=== PATIENT | male | born 1945 | race Caucasian/White ===

== ENCOUNTER → 2017-10-19 07:07 | Outpatient (CLI) | payer MEDICARE, BC, SELFPAY ==
[2017-10-19 10:34] LABS: AST(SGOT) 24 U/L (15-37); Alanine Aminotransfer ALT/SGPT 31 U/L (16-61); Albumin, Serum 3.8 g/dL (3.2-5.0); Alkaline Phosphatase 70 U/L (45-117); Bilirubin, Direct 0.32 mg/dL (0.00-0.30); Cholesterol 110 mg/dL (200); Globulin 3.2 g/dL (2.2-4.2); High Density Lipoprotein 42 mg/dL; Triglycerides 73 mg/dL; Very Low Density Lipoprotein 15 mg/dL (5-40)
== END ==
PROVIDERS: Family Provider Nurse Practitioner; PCP Nurse Practitioner; Visit Provider Internal Medicine Cardiovascular Disease
DX: E78.5 Hyperlipidemia, unspecified (principal); Z79.899 Other long term (current) drug therapy
CPT/HCPCS: 36415; 80061; 80076

== ENCOUNTER → 2017-11-10 10:40 | Outpatient (CLI) | payer MEDICARE, BC, SELFPAY ==
--- NOTE | 2017-11-10 10:42 | ECHOD_ITS ---
Reason For Study: CAD Procedure This was a 2D Doppler, Color Flow transthoracic echocardiogram. Exam performed in department. Left Ventricle Normal LV size. The estimated ejection fraction is 59 %. Stage 1 diastolic dysfunction. No regional wall motion abnormalities noted. Right Ventricle Normal RV size. Normal systolic function. Atria The left atrium is mildly enlarged. Normal right atrium. Mitral Valve Normal mitral valve. Trivial mitral valve insufficiency. Tricuspid Valve Normal tricuspid valve. Mild tricuspid valve insufficiency. Pulmonary artery systolic pressure is 27 mmHg. Aortic Valve Trisinus/trileaflet aortic valve. Mild diffuse aortic valve thickening. Trivial aortic valve insufficiency. Pulmonic Valve Normal pulmonic valve. Trivial pulmonic valve insufficiency identified. Great Vessels Normal aortic root. The pulmonary artery is normal size. Normal inferior vena cava. Pericardium/Pleural No pericardial effusion. MMode/2D Measurements & Calculations LVIDd: 5.1 cm IVSd: 1.1 cm Ao root diam: 3.2 cm LVIDs: 3.3 cm LVPWd: 0.92 cm LA dimension: 4.0 cm RVDd: 3.9 cm FS: 35.7 % LAV(MOD-bp): 67.4 ml LA A4 area: 20.9 cm2 RA A4 area: 15.0 cm2 LAV(MOD-bp) Indexed: 38.2 ml/m2 LAV(MOD-sp2): 68.3 ml LAV(MOD-sp4): 62.5 ml Doppler Measurements & Calculations MV E max lawrence: 51.0 cm/sec Lat Peak E' Lawrence: 11.9 cm/sec Med Peak E' Lawrence: 7.0 cm/sec MV A max lawrence: 62.7 cm/sec E/E' lat: 4.3 E/E' med: 7.3 MV E/A: 0.81 Ao V2 max: 128.8 cm/sec LV V1 max: 95.5 cm/sec PA V2 max: 104.2 cm/sec Ao max P.6 mmHg LV V1 max P.6 mmHg TR max lawrence: 242.3 cm/sec TR max P.6 mmHg Interpretation Summary Stage 1 diastolic dysfunction. The estimated ejection fraction is 59 %. Normal LV size. Mild tricuspid valve insufficiency. Mild diffuse aortic valve thickening. Ordering Physician: Rasta Gan/Kael Li Referring Physician: Cathy Kwok Performed By: Prisca Keane RDCS
== END ==
PROVIDERS: Family Provider Nurse Practitioner; PCP Nurse Practitioner; Visit Provider Nurse Practitioner Family
DX: I25.810 Atherosclerosis of coronary artery bypass graft(s) without angina pectoris (principal); Z95.1 Presence of aortocoronary bypass graft; I10 Essential (primary) hypertension; E78.5 Hyperlipidemia, unspecified; R60.9 Edema, unspecified
CPT/HCPCS: 93306

== ENCOUNTER → 2018-02-20 11:09 | Outpatient (CLI) | payer MEDICARE, BC, SELFPAY ==
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
== END ==
PROVIDERS: Family Provider Nurse Practitioner; PCP Nurse Practitioner; Referring Provider Nurse Practitioner; Visit Provider Nurse Practitioner
DX: M1A.00X1 Idiopathic chronic gout, unspecified site, with tophus (tophi) (principal)
CPT/HCPCS: 73130

== ENCOUNTER → 2018-06-09 07:41 | Outpatient (CLI) | payer MEDICARE, BC, SELFPAY ==
[2018-06-02 14:33] VITALS: BMI 25.4
[2018-06-09 11:09] LABS: AST(SGOT) 13 U/L (15-37); Alanine Aminotransfer ALT/SGPT 23 U/L (16-61); Albumin, Serum 3.4 g/dL (3.2-5.0); Alkaline Phosphatase 78 U/L (45-117); Bilirubin, Direct 0.19 mg/dL (0.00-0.30); Cholesterol 129 mg/dL (200); Globulin 3.2 g/dL (2.2-4.2); High Density Lipoprotein 41 mg/dL; Protein, Total 6.6 g/dL (6.4-8.2); Triglycerides 119 mg/dL; Very Low Density Lipoprotein 24 mg/dL (5-40)
== END ==
PROVIDERS: Family Provider Nurse Practitioner; PCP Nurse Practitioner; Referring Provider Internal Medicine Cardiovascular Disease; Visit Provider Internal Medicine Cardiovascular Disease
DX: E78.00 Pure hypercholesterolemia, unspecified (principal)
CPT/HCPCS: 36415; 80061; 80076

== ENCOUNTER → 2018-11-16 | Outpatient (CLI) | payer MEDICARE, BC, SELFPAY ==
[2018-06-02 14:33] VITALS: BMI 25.4
--- NOTE | 2018-11-16 12:57 | ART_ITS ---
Left Segmental Pressures Left brachial= 146mmHg. Left posterior tibial artery = 168mmHg. Left dorsalis pedis artery = 176mmHg. Left digit = 141 mmHg. The left dorsalis pedis waveforms are triphasic. The left posterior tibial artery waveforms are triphasic. Right Segmental Pressures Right brachial= 153mmHg. Right posterior tibial artery = 196mmHg. Right dorsalis pedis artery = 189mmHg. Right digit = 129 mmHg. The right dorsalis pedis waveforms are triphasic. The right posterior tibial artery waveforms are triphasic. Indices The right ankle brachial index by the dorsalis pedis is 1.24. The right ankle brachial index by the posterior tibial artery is 1.28. The right digital-brachial index is .84. The left ankle brachial index by the dorsalis pedis is 1.15. The left ankle brachial index by the posterior tibial artery is 1.1. The left digital-brachial index is .92. Interpretation Summary Triphasic Doppler waveforms are noted at ankle level bilaterally. Pulse-volume recording waveform amplitudes are satisfactory at all levels bilaterally, including low-thigh, calf, ankle, and digital levels. Resting ankle-brachial indices are normal bilaterally. Digital-brachial indices are bilaterally normal. There is no evidence of significant arterial occlusive disease in the lower extremities bilaterally. Ordering Physician: Jojo Tavera Performed By: NICOLE SEWELL RVT
== END | disposition home or self-care (01) ==
LOC: CVS 12:56
PROVIDERS: Family Provider Nurse Practitioner; PCP Nurse Practitioner; Referring Provider Podiatrist Foot & Ankle Surgery; Visit Provider Podiatrist Foot & Ankle Surgery
DX: R09.89 Other specified symptoms and signs involving the circulatory and respiratory systems (principal); I79.8 Other disorders of arteries, arterioles and capillaries in diseases classified elsewhere
CPT/HCPCS: 93923

== ENCOUNTER → 2018-12-13 | Outpatient (CLI) | payer MEDICARE, OTHER, SELFPAY ==
[2018-06-02 14:33] VITALS: BMI 25.4
[2018-12-13 11:02] LABS: AST(SGOT) 19 U/L (15-37); Alanine Aminotransfer ALT/SGPT 27 U/L (16-61); Albumin, Serum 3.4 g/dL (3.2-5.0); Alkaline Phosphatase 59 U/L (45-117); Bilirubin, Direct 0.16 mg/dL (0.00-0.30); Cholesterol 104 mg/dL (200); Globulin 2.8 g/dL (2.2-4.2); High Density Lipoprotein 45 mg/dL; Protein, Total 6.2 g/dL (6.4-8.2); Triglycerides 71 mg/dL; Very Low Density Lipoprotein 14 mg/dL (5-40)
== END | disposition home or self-care (01) ==
LOC: MTLAB 07:04
PROVIDERS: Family Provider Nurse Practitioner; PCP Nurse Practitioner; Referring Provider Internal Medicine Cardiovascular Disease; Visit Provider Internal Medicine Cardiovascular Disease
DX: E78.5 Hyperlipidemia, unspecified (principal)
CPT/HCPCS: 36415; 80061; 80076

== ENCOUNTER → 2019-01-24 | Outpatient (CLI) | payer MEDICARE, OTHER, SELFPAY ==
[2018-12-14 13:53] VITALS: BMI 24.8
--- NOTE | 2019-01-24 09:46 | RAD_ITS ---
HISTORY:HIP PAIN, NO TRAUMA HIP PAIN, NO TRAUMA COMPARISON: None FINDINGS: # of images incl. paperwork: 3 XR Hip Unilateral with Pelvis when performed; 2-3 Views: Right BONE AND JOINTS: No acute fracture or subluxation. There is increased density is seen bilaterally but greater on the right in the region of the anterior inferior iliac spine. This may be secondary to prior trauma SOFT TISSUES: Unremarkable. No radiopaque foreign body. RAD/HIP, UNI W/ Pelvis 2-3 Views IMPRESSION: No acute pathology If symptoms persist consider mri for further evaluation if clinically indicated. at 2217 Reported and signed by: Allie Marrufo DO Electronically Signed: Allie Marrufo DO at 22:16 EDT Tel , Service support ,
--- NOTE | 2019-01-24 09:46 | RAD_ITS ---
HISTORY:FOOT BURNING AND PAIN, NO TRAUMA FOOT BURNING AND PAIN, NO TRAUMA COMPARISON: None FINDINGS: # of images incl. paperwork: 3 XR Foot Min 3 Views: Right BONE AND JOINTS: No acute fracture or subluxation. Osteopenia. Decrease joint space at the first metatarsophalangeal joint. There is minimal hallux valgus as well as varus deformity of the second toe SOFT TISSUES: Atherosclerotic vascular disease No radiopaque foreign body. RAD/Foot min 3 Views IMPRESSION: No acute pathology Degenerative changes as discussed at 2219 Reported and signed by: Allie Marrufo DO Electronically Signed: Allie Marrufo DO at 22:18 EDT Tel , Service support ,
== END | disposition home or self-care (01) ==
LOC: HPRAD 09:42
PROVIDERS: Family Provider Nurse Practitioner; PCP Nurse Practitioner; Referring Provider Nurse Practitioner; Visit Provider Nurse Practitioner
DX: M25.551 Pain in right hip (principal); M79.671 Pain in right foot
CPT/HCPCS: 73502; 73630

== ENCOUNTER → 2019-01-31 06:03 | Outpatient (CLI) | payer MEDICARE, OTHER, SELFPAY ==
[2018-12-14 13:53] VITALS: BMI 24.8
--- NOTE | 2019-01-31 09:52 | NEURO ---
NCS and/or EMG Patient Report Ordering Doctor: Cathy Kwok DATE OF SERVICE: 01/31/19 Bassem Morrison is a 73-year-old male presents with complaints of numbness tingling and burning in both feet for the past several months. He presents today for electrodiagnostic testing of the lower limbs. Electrodiagnostic findings: Peroneal motor nerve demonstrates normal distal latency bilaterally with reduced amplitude on the right side and borderline reduced amplitude on the left side. Right tibial motor amplitude is decreased. Left tibial motor response within normal limits. Prolonged right superficial peroneal latency. Borderline prolonged right medial plantar response. H reflex prolonged bilaterally. Prolonged right tibial F waves. Prolonged peroneal F wave bilaterally. On needle EMG, all muscles tested in the lower limb showed no evidence of denervation with normal motor unit action potentials. Electrodiagnostic impression: This is an abnormal study. 1. 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 2. There is no electrodiagnostic evidence for lumbosacral radiculopathy. 3. There is no electrodiagnostic evidence for myopathy. If there are any further questions, please do not hesitate to contact me.
== END ==
PROVIDERS: Family Provider Nurse Practitioner; PCP Nurse Practitioner; Referring Provider Nurse Practitioner; Visit Provider Nurse Practitioner
DX: R20.0 Anesthesia of skin (principal); R20.2 Paresthesia of skin; G62.9 Polyneuropathy, unspecified
CPT/HCPCS: 95886; 95912

== ENCOUNTER → 2020-01-25 07:56 | Outpatient (CLI) | payer MEDICARE, OTHER, SELFPAY ==
[2019-08-24 13:40] VITALS: BMI 22.9
[2020-01-25 09:39] LABS: AST(SGOT) 19 U/L (15-37); Alanine Aminotransfer ALT/SGPT 25 U/L (16-61); Albumin, Serum 3.7 g/dL (3.2-5.0); Alkaline Phosphatase 65 U/L (45-117); Bilirubin, Direct 0.32 mg/dL (0.00-0.30); Cholesterol 109 mg/dL (200); Globulin 2.9 g/dL (2.2-4.2); High Density Lipoprotein 32 mg/dL; Protein, Total 6.6 g/dL (6.4-8.2); Triglycerides 218 mg/dL; Very Low Density Lipoprotein 44 mg/dL (5-40)
== END ==
PROVIDERS: PCP Student in an Organized Health Care Education/Training Program; Referring Provider Internal Medicine Cardiovascular Disease; Visit Provider Internal Medicine Cardiovascular Disease
DX: E78.00 Pure hypercholesterolemia, unspecified (principal); R42 Dizziness and giddiness; I25.10 Atherosclerotic heart disease of native coronary artery without angina pectoris; Z95.1 Presence of aortocoronary bypass graft; I10 Essential (primary) hypertension; E78.5 Hyperlipidemia, unspecified
CPT/HCPCS: 36415; 80061; 80076

== ENCOUNTER → 2020-11-12 12:25 | Outpatient (CLI) | payer MEDICARE, OTHER, SELFPAY ==
[2020-03-25 14:59] VITALS: BMI 24.5
[2020-11-12 14:22] LABS: AST(SGOT) 19 U/L (15-37); Alanine Aminotransfer ALT/SGPT 20 U/L (16-61); Albumin, Serum 3.8 g/dL (3.2-5.0); Alkaline Phosphatase 87 U/L (45-117); Bilirubin, Direct 0.35 mg/dL (0.00-0.30); Cholesterol 144 mg/dL (200); High Density Lipoprotein 38 mg/dL; Protein, Total 6.8 g/dL (6.4-8.2); Triglycerides 107 mg/dL; Very Low Density Lipoprotein 21 mg/dL (5-40)
== END ==
PROVIDERS: PCP Student in an Organized Health Care Education/Training Program; Referring Provider Internal Medicine Cardiovascular Disease; Visit Provider Internal Medicine Cardiovascular Disease
DX: E78.5 Hyperlipidemia, unspecified (principal)
CPT/HCPCS: 80061; 80076

== ENCOUNTER → 2020-12-01 06:07 | Outpatient (CLI) | payer MEDICARE, OTHER, SELFPAY ==
[2020-11-20 08:47] VITALS: BMI 24.7
--- NOTE | 2020-12-01 16:07 | STRESSREP ---
Stress Test Report Exercise myocardial perfusion stress test. 75-year-old man with a history of coronary artery bypass surgery. Stress protocol: Resting EKG demonstrates normal sinus rhythm with a rate of 65 bpm normal intervals are noted. The patient exercised according to the regular Jason protocol for total duration of 8 minutes. Patient completed 2 minutes into stage III of the Jason protocol. The maximum heart rate was 133 bpm which was 91% of maximum predicted heart rate the maximum workload was 10.1 metabolic equivalent. At rest there were no ST or T wave changes noted to suggest ischemia at peak exercise upsloping ST changes were noted with did not meet the criteria for ischemia. No clinical angina was noted the test was terminated due to the target heart rate being achieved. The resting blood pressure was 132/80 with a peak blood pressure 190/68 mmHg. Myocardial perfusion protocol. 11.1 mCi of technetium 99m sestamibi was injected at rest. The patient exercised according to regular Jason protocol, for total duration of 8 minutes and at peak exercise 32.1 mCi of technetium 99m sestamibi was injected stress images were obtained stress and rest images were reconstructed and compared in the short axis vertical long horizontal long axis. Gated images were also obtained Perfusion SPECT analysis: Review of the stress images demonstrate normal uptake of tracer noted in all areas of the myocardium. The resting images smooth demonstrate normal uptake of tracer noted in all areas of the myocardium. No areas of reversibility are noted suggest ischemia and no previous infarct is noted. Gated SPECT analysis: The gated ejection fraction is 61%. Conclusion: Normal exercise myocardial perfusion stress test at a high workload. Preserved ejection fraction.
== END ==
PROVIDERS: PCP Student in an Organized Health Care Education/Training Program; Referring Provider Internal Medicine Cardiovascular Disease; Visit Provider Internal Medicine Cardiovascular Disease
DX: Z95.1 Presence of aortocoronary bypass graft (principal)
CPT/HCPCS: 78452; 93017; A9500; A4216

== ENCOUNTER → 2021-11-28 | Outpatient (CLI) | payer MEDICARE, OTHER, SELFPAY ==
[2021-11-28 08:21] LABS: AST(SGOT) 14 U/L (15-37); Alanine Aminotransfer ALT/SGPT 21 U/L (16-61); Albumin, Serum 3.4 g/dL (3.2-5.0); Alkaline Phosphatase 75 U/L (45-117); Bilirubin, Direct 0.23 mg/dL (0.00-0.30); Cholesterol 92 mg/dL (200); High Density Lipoprotein 33 mg/dL; Protein, Total 6.4 g/dL (6.4-8.2); Triglycerides 82 mg/dL; Very Low Density Lipoprotein 16 mg/dL (5-40)
== END | disposition home or self-care (01) ==
LOC: LAB 07:01
PROVIDERS: PCP Student in an Organized Health Care Education/Training Program; Referring Provider Internal Medicine Cardiovascular Disease; Visit Provider Internal Medicine Cardiovascular Disease
DX: E78.00 Pure hypercholesterolemia, unspecified (principal)
CPT/HCPCS: 36415; 80061; 80076

== ENCOUNTER 2022-12-17 14:08 | Emergency (ER) | payer MEDICARE, OTHER, SELFPAY ==
[2022-12-17 14:11] VITALS: BP 78/57; PULSE 67; RESP 14; TEMP 36.6; O2SAT 96; BMI 25.1
[2022-12-17 14:15] VITALS: BP 98/64; PULSE 61; RESP 12; TEMP 35.3; O2SAT 93
--- NOTE | 2022-12-17 14:16 | ED.RN ---
PT BECAME PALE AND DIAPHORETIC WHILE TRIAGING.
[2022-12-17] MEDS: DiphenhydrAMINE 50 MG/ML Syringe IV (14:35)
[2022-12-17] MEDS: 0.9% Normal Saline 1,000 ML 1000 ML IV (14:35)
--- NOTE | 2022-12-17 14:40 | CT_ITS ---
STUDY: CTA OF THE ABDOMINAL AORTA AND BILATERAL LOWER EXTREMITIES REASON FOR EXAM: Male, 77 years old. Expanding hematoma distal thigh/ trauma. RADIATION DOSAGE (If Supplied By Facility): CTDIvol = ( 9.26 ) mGy, DLP = ( 1219.90 ) mGycm TECHNIQUE: Axial CT angiography multi-detector data acquisition was obtained from the iliac crests to the ankle following intravenous administration of IV 100mL Isovue-370. Axial images and MIP images were reconstructed from the axial data set. Post-processing of the angiographic images was performed, with multiplanar reformation and 3D reconstruction. Individualized dose optimization techniques were used for this CT. TECHNICAL QUALITY: Good COMPARISON: None. Descriptors of Narrowing: None (0%) Mild (< 50%) Moderate (50-70%) Severe (70-90%) Subtotal/Total Occlusion (90-100%) Non-Evaluable (technically non-diagnostic FINDINGS: There is a 10.9 cm x 4.6 cm x 12 cm complex hematoma in the medial aspect of the mid and distal left thigh. There is overlying skin subcutaneous edema and skin thickening. There is evidence of active bleeding along its most distal portion. The arterial supply to the area of active bleeding cannot be identified although this most likely arises from a branch of the distal portion of the left profundus femoris artery. Abdominal aorta: Atherosclerotic plaque formation of the abdominal aorta. Celiac and superior mesenteric arteries: No demonstrated narrowing. Right common iliac artery: Calcific plaques. Right external iliac artery: No demonstrated narrowing. Right internal iliac artery: No demonstrated narrowing. Left common iliac artery: Calcific plaques. Left external iliac artery: No demonstrated narrowing. Left internal iliac artery: No demonstrated narrowing. LEFT LOWER EXTREMITY Left common femoral artery: No demonstrated narrowing. Left profundus femoris: No demonstrated narrowing. Left superficial femoral: No demonstrated narrowing. Left popliteal artery: No demonstrated narrowing. Left tibioperoneal trunk: No demonstrated narrowing. Left anterior tibial artery: No demonstrated narrowing. Left posterior tibial artery: No demonstrated narrowing. Left peroneal artery: No demonstrated narrowing. CT/CTA LWR EXTR W/O & W/DYE IMPRESSION: Large heterogeneous hematoma in the medial aspect of the mid and distal left thigh with focal area of active bleeding along its distal portion as described. Overlying subcutaneous edema and skin thickening. Electronically Signed: Dav Parikh MD at 15:03 EDT ,
[2022-12-17 14:49] LABS: International Normalized Ratio 1.1; Prothrombin Time (Protime)PT. 13.7 SECONDS (11.7-14.9)
[2022-12-17 14:53] VITALS: BP 140/61; PULSE 55; RESP 18; O2SAT 100
[2022-12-17 14:55] LABS: ALB/GLOB Ratio 1.2 RATIO (0.9-2.4); AST(SGOT) 16 U/L (15-37); Alanine Aminotransfer ALT/SGPT 24 U/L (16-61); Albumin, Serum 3.4 g/dL (3.2-5.0); Alkaline Phosphatase 63 U/L (45-117); Anion Gap 7 (5-15); BUN 22 mg/dL (7-18); BUN/Creat Ratio 19.1 RATIO (10-20); Calcium,Total 8.8 mg/dL (8.5-10.1); Chloride 107 mmol/L (98-107); Creatinine, Serum 1.15 mg/dL (0.70-1.30); EST Glomerular Filtration Rate 66 mL/min (>60); Est Glom Filt Rate - Afr Amer 79 mL/min (>60); Estimated Creatinine Clearance 55.54 ml/min; Globulin 2.8 g/dL (2.2-4.2); Glucose 153 mg/dL (74-106); Potassium 4.3 mmol/L (3.5-5.1); Protein, Total 6.2 g/dL (6.4-8.2); Sodium Level 140 mmol/L (136-145)
--- NOTE | 2022-12-17 15:08 | ED.VIS.LOWEX ---
HPI History of Present Illness Chief Complaint: Lower Extremity Injury Informant: patient and spouse/S.O. Narrative Narrative: Patient is a 77-year-old male with history of coronary artery disease status post bypass, hypertension hyperlipidemia presenting with lightheadedness and injury to his left thigh. Patient was out mowing the lawn. He tried to step over a small fence and lost his balance. He fell. He got himself back up and continued to work on the lawn however he then noticed that he started to have significant swelling of the left thigh/ knee area. Patient notes his blood pressures usually elevated. Denies any other injuries. Does have chronic neuropathy but denies any abnormal numbness or tingling of his legs. Takes a daily aspirin is not on any anticoagulation. No other complaints or concerns at this time. [facility] Medical History Atherosclerosis of coronary artery of [place] heart without angina pectoris Essential (primary) hypertension Gout HLD (hyperlipidemia) Home Medications allopurinol 300 mg tablet 300 mg PO DAILY 03/25/14 [History Last Taken Unknown] nitroglycerin 0.4 mg sublingual tablet (Nitrostat) 0.4 mg sublingual Q5M 10/10/17 [History Last Taken Unknown] aspirin 81 mg chewable tablet 81 mg PO DAILY@0800 06/02/18 [History Last Taken Unknown] acetaminophen 500 mg tablet 1,000 mg PO BID 12/01/21 [History Last Taken Unknown] atenolol 50 mg tablet 50 mg PO QDAY #90 tabs 12/01/21 [Rx Last Taken Unknown] atorvastatin 10 mg tablet 10 mg PO QDAY #90 tabs 12/01/21 [Rx Last Taken Unknown] losartan 100 mg tablet 100 mg PO DAILY #90 tabs 10/25/22 [Rx Last Taken Unknown] Allergy/AdvReac Type Severity Reaction Status Date / Time iodine Allergy Other Verified 12/17/22 14:10 simvastatin [From Zocor] AdvReac Severe Myalgias Verified 12/17/22 14:10 hydrochlorothiazide AdvReac Intermediate Other Verified 12/17/22 14:10 Family History Father CAD (coronary artery disease) Surgical History H/O coronary artery bypass surgery (05/1994) History of herniorrhaphy History of tonsillectomy Hx of cholecystectomy Social History Smoking Status: Former smoker Smokeless tobacco user: chewing tobacco how long ago did patient quit smoking: After [place] alcohol intake: current alcohol intake frequency: a few times a month Alcohol type: beer substance use type: does not use caffeine: Yes Type: coffee Number of servings: 3 ROS ROS ED Constitutional Constitutional ED: Reports sweats Eyes Eyes: Denies change in vision Cardiovascular Cardiovascular: Denies chest pain Respiratory/Chest Respiratory/Chest: Denies cough or dyspnea Gastrointestinal Gastrointestinal: Denies nausea or vomiting Musculoskeletal Musculoskeletal: Reports other Details: left knee pain and swelling Integumentary Denies rash Neurologic Neurologic: Reports paresthesias; Denies weakness Psychiatric Psychiatric: Denies anxiety Hematologic/Lymphatic Hematologic/Lymphatic: Denies easy bleeding or easy bruising EXAM Physical Exam Const Vital Signs: 12/17/22 14:11 12/17/22 14:15 12/17/22 14:53 Temperature 98 F 95.5 F L Temperature Source Temporal Temporal Pulse Rate 67 61 55 L Respiratory Rate 14 12 18 Blood Pressure 78/57 L 98/64 140/61 H Blood Pressure Mean 64 75 87 Pulse Ox 96 93 100 Oxygen Delivery Method Room Air Room Air Room Air Positive well nourished and well developed Constitutional Narrative: Diaphoretic, pale, no acute distress General Appearance ED: well developed HEENT Reports moist mucous membranes Neck supple Chest Wall inspection of chest normal and palpation of chest normal Resp normal respiratory effort and clear to auscultation bilaterally Cardio regular rate, regular rhythm and no murmurs Cardio Narrative: 2+ DP pulses GI non-tender, non-distended and no masses Extremity Extremity Narrative: Decreased range of motion of the left knee secondary to swelling. Large area of soft tissue swelling of the medial distal femur into the knee with overlying ecchymosis. No pulsatile mass but this is consistent with an expanding hematoma. The area is quite firm to palpation. The compartments themselves are soft at this time. Neuro oriented x3 Sensorium / Orientation: alert Skin Skin Narrative: Ecchymosis to the left distal femur/knee area MDM MDM MDM Narrative Medical decision making narrative: Patient evaluated for swelling, hypotension and mild discomfort to his left thigh. There is a low mechanism trauma associated with this. Physical exam is highly concerning for expanding hematoma. Patient is fluid resuscitated with IV fluids and has good improvement. He is mildly bradycardic in the ER but I suspect this is from his atenolol. He has clinical improvement as well with IV fluids. CTA of the lower extremity is consistent with a hematoma with active arterial bleeding of the distal profundus fomoris vessel. As we do not currently have IR or vascular coverage will transfer to a larger facility. Discussed with the [facility] transfer line and patient is excepted as a trauma patient. Case discussed with Dr. Kingsley. Patient is agreeable this plan of care. On repeat evaluation he remains stable and I do not think requires critical care transport/[facility] at this time. Discussed with transfer that if he were to become unstable they should place a tourniquet on his mid thigh proximal to where the hematoma is. They are agreeable with this. Tight pressure dressing with Victor Manuel wrap is applied to the leg while in the emergency room. Lab Data Labs: Laboratory Results - last 24 hr 12/17/22 14:20 PT 13.7 INR 1.1 APTT 28.0 Sodium 140 Potassium 4.3 Chloride 107 Carbon Dioxide 26.0 Anion Gap 7 BUN 22 H Creatinine 1.15 Estim Creat Clear Calc 55.54 Est GFR (MDRD) Af Amer 79 Est GFR (MDRD) Non-Af 66 BUN/Creatinine Ratio 19.1 Glucose 153 H Calcium 8.8 Total Bilirubin 0.70 AST 16 ALT 24 Alkaline Phosphatase 63 Total Protein 6.2 L Albumin 3.4 Globulin 2.8 Albumin/Globulin Ratio 1.2 Radiography Diagnostic Testing: Clinical Impression(s) from Imaging Studies Lower Extremity CTA 12/17/22 14:40 IMPRESSION: Large heterogeneous hematoma in the medial aspect of the mid and distal left thigh with focal area of active bleeding along its distal portion as described. Overlying subcutaneous edema and skin thickening. Electronically Signed: Dav Parikh MD at 15:03 EDT , Management Discussion w/another healthcare provider: [employer] Consultant Critical Care Time Critical Care Time: Yes Critical care time (excluding procedures): 30-74 minutes (40), Discussing w/Patient &/or Family/Workers Compensation Administrator and Arranging Admission or Transfer Discharge Plan Triage Chief Complaint: Lower Extremity Injury ED Provider: Kathryn Gloria Dx/Rx/DC Orders Clinical Impression: Traumatic hematoma of left thigh, Arterial hemorrhage Prescriptions: No Action nitroglycerin [Nitrostat] 0.4 mg tablet, sublingual 0.4 mg SUBLINGUAL Q5M Patient Comments: X 3 acetaminophen 500 mg tablet 1,000 mg PO BID atenolol 50 mg tablet 50 mg PO QDAY Qty: 90 3RF atorvastatin 10 mg tablet 10 mg PO QDAY Qty: 90 3RF allopurinol 300 MG tablet 300 mg PO DAILY aspirin 81 mg tablet,chewable 81 mg PO DAILY@0800 losartan 100 mg tablet 100 mg PO DAILY Qty: 90 3RF Primary Care Provider: Lonnie Chaney Referrals: Lonnie Chaney DO [Primary Care Provider] - Disposition Disposition: Acute Care Hospital Discharge Location: [facility]
[2022-12-17 15:25] LABS: Absolute Lymphocyte Count 3.27 X10^3/uL (0.83-4.51); Absolute Neutrophil Count 7.5 X10^3/uL (2.0-7.7); Basophil# 0.09 X10^3/uL; Basophil% 0.7 % (0-1); Eosinophil# 0.33 X10^3/uL; Eosinophils% 2.6 % (0-5); Hematocrit 38.8 % (40-54); Hemoglobin 12.6 g/dL (13.0-16.5); Lymphocyte # 3.27 X10^3/ul (0.83-4.51); Mean Corp Hgb Conc 32.5 g/dL (32-36); Mean Corpuscular Hgb 30.8 pg (27.0-32.0); Mean Corpuscular Volume 94.9 fL (80-94); Mean Platelet Vol. 9.6 fl (6.2-12.0); Monocyte# 1.35 X10^3/uL; Monocyte% 10.7 % (0-10); NRBC Flagged by Analyzer 0 % (0-5); Neutrophil # 7.47 X10^3/uL (2.7-7.7); Neutrophil % 59.4 % (47-70); Platelet Count 271 K/mm3 (150-450); RBC Distribution Width CV 12.2 % (11.6-14.6); RBC Distribution Width SD 41.7 fl (35.1-43.9); Red Blood Count 4.09 M/mm3 (4.6-6.2); White Blood Count 12.6 K/mm3 (4.4-11.0)
[2022-12-17 15:47] VITALS: BP 162/68; PULSE 57
--- NOTE | 2022-12-17 15:59 | ED.RN ---
Report called to Carlos alvarez [facility]
[2022-12-17 18:35] LABS: Reflex Lactate? Y
== END 2022-12-17 16:06 | disposition short-term general hospital (02) ==
PROVIDERS: Emergency Provider Emergency Medicine; PCP Student in an Organized Health Care Education/Training Program; Visit Provider Emergency Medicine
DX: S70.12XA Contusion of left thigh, initial encounter (principal); I25.10 Atherosclerotic heart disease of native coronary artery without angina pectoris; E78.5 Hyperlipidemia, unspecified; I10 Essential (primary) hypertension; Z87.891 Personal history of nicotine dependence; Z79.82 Long term (current) use of aspirin; M10.9 Gout, unspecified; Z79.899 Other long term (current) drug therapy; Z90.49 Acquired absence of other specified parts of digestive tract; W17.89XA Other fall from one level to another, initial encounter; R58 Hemorrhage, not elsewhere classified
CPT/HCPCS: 73706; 80053; 83605; 85025; 85610; 85730; 86850; 86900; 86901; 96361; 96374; 96375; 99282; J7030; Q9967; A4216

== ENCOUNTER 2022-12-20 00:16 | Emergency (ER) | payer MEDICARE, OTHER, SELFPAY ==
[2022-12-20 00:17] VITALS: BP 164/66; PULSE 89; RESP 18; TEMP 36.7; O2SAT 99; BMI 26.2
--- NOTE | 2022-12-20 00:57 | EKG12_ITS ---
Test Reason : DYSRHYTHMIA Blood Pressure : / mmHG Vent. Rate : 085 BPM Atrial Rate : 085 BPM P-R Int : 156 ms QRS Dur : 086 ms QT Int : 366 ms P-R-T Axes : 089 036 031 degrees QTc Int : 435 ms Normal sinus rhythm Normal ECG Confirmed by JEFF GO, SARA ([id number]), editorial intern ALYSSA GARCIA ([id number]) on 12/23/2022 8:44:55 AM Referred By: VIKTOR Confirmed By:YOLI AGUILAR MD
[2022-12-20 01:13] LABS: Absolute Lymphocyte Count 2.75 X10^3/uL (0.83-4.51); Absolute Neutrophil Count 8.7 X10^3/uL (2.0-7.7); Basophil# 0.08 X10^3/uL; Basophil% 0.6 % (0-1); Eosinophils% 2.2 % (0-5); Hematocrit 21.1 % (40-54); Hemoglobin 6.8 g/dL (13.0-16.5); Lymphocyte # 2.75 X10^3/ul (0.83-4.51); Lymphocyte % 20.6 % (19-41); Mean Corp Hgb Conc 32.2 g/dL (32-36); Mean Corpuscular Hgb 31.5 pg (27.0-32.0); Mean Corpuscular Volume 97.7 fL (80-94); Mean Platelet Vol. 9.7 fl (6.2-12.0); Monocyte# 1.24 X10^3/uL; Monocyte% 9.3 % (0-10); NRBC Flagged by Analyzer 0.3 % (0-5); Neutrophil # 8.73 X10^3/uL (2.7-7.7); Neutrophil % 65.5 % (47-70); Platelet Count 191 K/mm3 (150-450); RBC Distribution Width CV 12.8 % (11.6-14.6); RBC Distribution Width SD 44.4 fl (35.1-43.9); Red Blood Count 2.16 M/mm3 (4.6-6.2); White Blood Count 13.3 K/mm3 (4.4-11.0)
[2022-12-20 01:17] VITALS: BP 139/53; PULSE 83; RESP 22; O2SAT 98
[2022-12-20 01:49] LABS: Anion Gap 5 (5-15); BUN 23 mg/dL (7-18); BUN/Creat Ratio 18.5 RATIO (10-20); Calcium,Total 8.2 mg/dL (8.5-10.1); Chloride 108 mmol/L (98-107); Creatinine, Serum 1.24 mg/dL (0.70-1.30); EST Glomerular Filtration Rate 60 mL/min (>60); Est Glom Filt Rate - Afr Amer 73 mL/min (>60); Estimated Creatinine Clearance 51.51 ml/min; Glucose 127 mg/dL (74-106); Magnesium 2.1 mg/dL (1.6-2.6); Potassium 3.9 mmol/L (3.5-5.1); Sodium Level 140 mmol/L (136-145); Thyroid Stim Hormone (TSH) 1.95 uIU/mL (0.358-3.74); Troponin-I HS 9 pg/mL (3.0-78.0)
--- NOTE | 2022-12-20 02:27 | EDS_ITS ---
HPI History of Present Illness Chief Complaint: Palpitations Informant: patient Narrative Narrative: Patient is a 77-year-old male with past medical history of hypertension hyperlipidemia and coronary artery disease. He was seen in the hospital on December 09 secondary to traumatic hematoma of the left thigh with arterial hemorrhage. She was transferred to [facility]. He states that he was released from their services roughly a day later as the vessel had quit bleeding. He states that this evening he was sleeping and awoke with palpitations/sense that his heart was racing. He states he put on a blood pressure cuff which also took his pulse and he felt it was elevated at 85. He many chest pain or shortness of breath associated with this but based on the palpitations and his concern for elevated heart rate he comes in for evaluation [facility] Medical History Atherosclerosis of coronary artery of [place] heart without angina pectoris Essential (primary) hypertension Gout HLD (hyperlipidemia) Home Medications allopurinol 300 mg tablet 300 mg PO DAILY 03/25/14 [History Last Taken Unknown] aspirin 81 mg chewable tablet 81 mg PO DAILY@0800 06/02/18 [History Last Taken Unknown] acetaminophen 500 mg tablet 1,000 mg PO BID 12/01/21 [History Last Taken Unknown] atenolol 50 mg tablet 50 mg PO QDAY #90 tabs 12/01/21 [Rx Last Taken Unknown] atorvastatin 10 mg tablet 10 mg PO QDAY #90 tabs 12/01/21 [Rx Last Taken Unknown] losartan 100 mg tablet 100 mg PO DAILY #90 tabs 10/25/22 [Rx Last Taken Unknown] Allergy/AdvReac Type Severity Reaction Status Date / Time iodine Allergy Other Verified 12/20/22 00:17 simvastatin [From Zocor] AdvReac Severe Myalgias Verified 12/20/22 00:17 hydrochlorothiazide AdvReac Intermediate Other Verified 12/20/22 00:17 Family History Father CAD (coronary artery disease) Surgical History H/O coronary artery bypass surgery (05/1994) History of herniorrhaphy History of tonsillectomy Hx of cholecystectomy Social History Smoking Status: Former smoker Smokeless tobacco user: chewing tobacco how long ago did patient quit smoking: After [place] alcohol intake: current alcohol intake frequency: a few times a month Alcohol type: beer substance use type: does not use caffeine: Yes Type: coffee Number of servings: 3 ROS ROS ED Constitutional Constitutional ED: Denies chills or fever(s) Eyes Eyes: Denies change in vision ENT ENT ED: Denies sore throat Cardiovascular Cardiovascular: Reports palpitations and racing heartbeat; Denies chest pain Respiratory/Chest Respiratory/Chest: Denies cough or dyspnea Gastrointestinal Gastrointestinal: Denies abdominal pain, diarrhea, nausea or vomiting Genitourinary Genitourinary ED: Denies dysuria Musculoskeletal Musculoskeletal: Reports other Details: Positive left thigh/knee pain ; Denies myalgias Integumentary Reports other Details: Positive left thigh/knee swelling and bruising ; Denies rash Neurologic Neurologic: Denies headache(s) Hematologic/Lymphatic Hematologic/Lymphatic: Denies easy bleeding or easy bruising EXAM Physical Exam Const Vital Signs: 12/20/22 00:17 12/20/22 01:17 12/20/22 02:38 Temperature 98.0 F Temperature Source Temporal Pulse Rate 89 83 77 Respiratory Rate 18 22 H 15 Blood Pressure 164/66 H 139/53 H 153/59 H Blood Pressure Mean 98 81 Pulse Ox 99 98 100 Oxygen Delivery Method Room Air Room Air Positive well nourished and well developed General Appearance ED: well developed HEENT Reports moist mucous membranes HEENT Narrative: Normocephalic atraumatic Eyes PERRL and EOMs intact bilaterally General Eye ED: Yes pale conjunctiva Neck supple and no JVD Resp normal respiratory effort and clear to auscultation bilaterally Cardio regular rate and regular rhythm Rate: other Other Details: Radial and carotid pulses are equal and symmetric GI normal to inspection, nondistended, normoactive bowel sounds, non-tender, non- distended and no masses GI Narrative: No voluntary guarding or rigidity. No pulsatile mass or fluid wave Auscultation: normoactive bowel sounds Palpation: soft Extremity Extremity Narrative: Left lower extremity is neurovascularly intact. Patient has soft tissue swelling with ecchymosis and hemorrhagic blisters along the medial aspect of the distal left thigh/knee which is consistent with his recent diagnosis of traumatic hematoma and arterial hemorrhage. No pulsatile mass noted no derang ement to bilateral pulses Neuro oriented x3 and CN's II-XII intact bilaterally Sensorium / Orientation: alert Psych mental status grossly normal Skin Skin Narrative: Soft tissue changes to the left thigh/knee as documented above MDM MDM MDM Narrative Medical decision making narrative: Patient presented to the ER slightly hypertensive but otherwise with stable vitals. He reported waking up feeling like his heart was racing/skipping beats but in the ER his pulse is normal at 85 and there is no ectopy or atypical rhythm noted. As differential could be related to abnormal heart rhythm such as A-fib a flutter or SVT or ectopic beats such as PACs or PVCs basic blood work was obtained. There is also concern for acute blood loss anemia secondary to his recent traumatic hematoma with arterial hemorrhage. Blood work showed no clinically significant electrolyte derangements or elevation to the troponin going against acute coronary syndrome. His blood work however showed that his hemoglobin has now dropped by about half to 6.8. The patient denies any hematuria or dark stool or hematochezia. We discussed the possibility of performing a rectal exam to check for GI bleed as a cause of his hemoglobin drop but his BUN is not elevated and he denies any symptoms and he also has a more likely reason based on the soft tissue swelling around his knee/distal thigh. I also discussed with patient the possibility of obtaining a blood transfusion in the ER. The patient states that he does not want to stay hours in the ER for transfusion especially as he is not having dizziness or shortness of breath or passing out. Therefore at this time I will discharge the patient home as he does not want any type of transfusion based on his acute blood loss anemia. He will be given an order form to have his labs rechecked in 2 to 3 days to make sure his hemoglobin is remaining stable. Otherwise he does not have signs of sy stemic infection or acute coronary syndrome or abnormal cardiac rhythm and is safe for discharge History & Record Review Discussion w/independent historian: Patient Lab Data Attestation: I reviewed the patient's lab results. Labs: Laboratory Results - last 24 hr 12/20/22 01:08 WBC 13.3 H RBC 2.16 L Hgb 6.8 L Hct 21.1 L MCV 97.7 H MCH 31.5 MCHC 32.2 RDW Std Deviation 44.4 H RDW Coeff of Elsa 12.8 Plt Count 191 MPV 9.7 Immature Gran % (Auto) 1.800 H Neut % (Auto) 65.5 Lymph % (Auto) 20.6 [place] % (Auto) 9.3 Eos % (Auto) 2.2 Baso % (Auto) 0.6 Absolute Neuts (auto) 8.7 H Absolute Lymphs (auto) 2.75 Nucleated RBC % 0.3 Sodium 140 Potassium 3.9 Chloride 108 H Carbon Dioxide 27.0 Anion Gap 5 BUN 23 H Creatinine 1.24 Estim Creat Clear Calc 51.51 Est GFR (MDRD) Af Amer 73 Est GFR (MDRD) Non-Af 60 BUN/Creatinine Ratio 18.5 Glucose 127 H Calcium 8.2 L Magnesium 2.1 Troponin I High Sens 9 TSH 1.95 Discharge Plan Triage Chief Complaint: Palpitations ED Provider: Bandar Brandon Dx/Rx/DC Orders Clinical Impression: Palpitations, Anemia, Essential (primary) hypertension, Traumatic hematoma of left thigh Instructions: Anemia, ED Palpitations Prescriptions: No Action acetaminophen 500 mg tablet 1,000 mg PO BID atenolol 50 mg tablet 50 mg PO QDAY Qty: 90 3RF atorvastatin 10 mg tablet 10 mg PO QDAY Qty: 90 3RF allopurinol 300 MG tablet 300 mg PO DAILY aspirin 81 mg tablet,chewable 81 mg PO DAILY@0800 losartan 100 mg tablet 100 mg PO DAILY Qty: 90 3RF Other Ambulatory Orders: CBC W/Diff, Automated (Routine) Timeframe: 3 Days Facility: [facility] - Location: Laboratory Ordered By: Dr. Bandar Brandon Primary Care Provider: Lonnie Chaney Referrals: Lonnie Chaney DO [Primary Care Provider] - Activity Restrictions/Additional Instructions: Your hemoglobin/blood volume is low today consistent with your recent left thigh bleed. Please have your blood counts rechecked in the next 2 to 3 days to make sure they are holding stable. If you develop dizziness or passing out or have any further concerns please return to the hospital for repeat evaluation. Disposition Disposition: Home, Self Care Discharge Date/Time: 12/20/22 02:38
[2022-12-20 02:38] VITALS: BP 153/59; PULSE 77; RESP 15; O2SAT 100
== END 2022-12-20 02:38 | disposition home or self-care (01) ==
PROVIDERS: Emergency Provider Emergency Medicine; PCP Student in an Organized Health Care Education/Training Program; Visit Provider Emergency Medicine
DX: R00.2 Palpitations (principal); D64.9 Anemia, unspecified; E78.5 Hyperlipidemia, unspecified; I25.10 Atherosclerotic heart disease of native coronary artery without angina pectoris; I10 Essential (primary) hypertension; Z87.891 Personal history of nicotine dependence; S70.12XA Contusion of left thigh, initial encounter; M10.9 Gout, unspecified; Z79.899 Other long term (current) drug therapy; Z79.82 Long term (current) use of aspirin; Z90.49 Acquired absence of other specified parts of digestive tract
CPT/HCPCS: 80048; 83735; 84443; 84484; 85025; 93005; 99283; A4216

== ENCOUNTER → 2022-12-22 | Outpatient (CLI) | payer MEDICARE, OTHER, SELFPAY ==
[2022-12-22 10:58] LABS: Absolute Lymphocyte Count 1.82 X10^3/uL (0.83-4.51); Absolute Neutrophil Count 9.1 X10^3/uL (2.0-7.7); Basophil# 0.06 X10^3/uL; Basophil% 0.5 % (0-1); Eosinophil# 0.27 X10^3/uL; Eosinophils% 2.1 % (0-5); Hematocrit 23.1 % (40-54); Hemoglobin 7.3 g/dL (13.0-16.5); Lymphocyte # 1.82 X10^3/ul (0.83-4.51); Lymphocyte % 14.4 % (19-41); Mean Corp Hgb Conc 31.6 g/dL (32-36); Mean Corpuscular Hgb 31.9 pg (27.0-32.0); Mean Corpuscular Volume 100.9 fL (80-94); Mean Platelet Vol. 9.3 fl (6.2-12.0); Monocyte# 1.07 X10^3/uL; Monocyte% 8.5 % (0-10); NRBC Flagged by Analyzer 0.6 % (0-5); Neutrophil # 9.06 X10^3/uL (2.7-7.7); Platelet Count 235 K/mm3 (150-450); RBC Distribution Width CV 14.5 % (11.6-14.6); RBC Distribution Width SD 47.4 fl (35.1-43.9); Red Blood Count 2.29 M/mm3 (4.6-6.2); White Blood Count 12.6 K/mm3 (4.4-11.0)
[2022-12-22 11:15] LABS: Anion Gap 3 (5-15); BUN 15 mg/dL (7-18); BUN/Creat Ratio 16.8 RATIO (10-20); Calcium,Total 8.5 mg/dL (8.5-10.1); Chloride 108 mmol/L (98-107); Creatinine, Serum 0.89 mg/dL (0.70-1.30); EST Glomerular Filtration Rate 88 mL/min (>60); Est Glom Filt Rate - Afr Amer 106 mL/min (>60); Glucose 118 mg/dL (74-106); LDH 165 U/L (87-241); Potassium 3.9 mmol/L (3.5-5.1); Sodium Level 140 mmol/L (136-145)
[2022-12-22 11:20] LABS: AST(SGOT) 19 U/L (15-37); Alanine Aminotransfer ALT/SGPT 23 U/L (16-61); Albumin, Serum 3.2 g/dL (3.2-5.0); Alkaline Phosphatase 69 U/L (45-117); Bilirubin, Direct 0.39 mg/dL (0.00-0.30); Cholesterol 121 mg/dL (200); Globulin 3.1 g/dL (2.2-4.2); High Density Lipoprotein 44 mg/dL; Protein, Total 6.3 g/dL (6.4-8.2); Triglycerides 127 mg/dL; Very Low Density Lipoprotein 25 mg/dL (5-40)
[2022-12-23 04:06] LABS: Haptoglobin 232 mg/dL (34-355)
== END | disposition home or self-care (01) ==
PROVIDERS: Internal Medicine Cardiovascular Disease; PCP Student in an Organized Health Care Education/Training Program; Referring Provider Emergency Medicine; Visit Provider Emergency Medicine
DX: D64.9 Anemia, unspecified (principal); R58 Hemorrhage, not elsewhere classified; E78.00 Pure hypercholesterolemia, unspecified
CPT/HCPCS: 36415; 80048; 80061; 80076; 83010; 83615; 85025

== ENCOUNTER 2023-01-20 13:15 | Outpatient (RCR) | payer MEDICARE, OTHER, SELFPAY ==
[2022-12-24 08:10] VITALS: BP 106/58; PULSE 83; RESP 22; TEMP 36.4; BMI 24.5
--- NOTE | 2022-12-24 11:24 | PCM.WC.HP ---
History of Present Illness Date of Service: 12/24/22 Chief Complaint: L medial distal thigh hematoma History of Wound: Patient is a 77 y/o male who presents today for evaluation and management of a L thigh hematoma. He is accompanied to his appointment today by his . Last week, the patient was tending to his lawn when he tripped with his legs scissor-ed over a wooden fence. With the fall, he felt a sharp pain but this dissipated quickly and he continued with his yard work. Some time later he began to notice his leg swelling and he presented to the [facility] ER. He was found to have an expanding hematoma secondary to bleeding from [place] branch. He was transferred to [facility] as a trauma. At [facility], he was monitored and his hgb stabilized, they determined the bleeding stopped on its own and no surgical intervention was taken. He followed-up once with vascular surgery as an outpatient, he reports they performed doppler on his leg which showed satisfactory flow distal to the hematoma and they instructed him to wrap the hematoma/blisters with dry dressing which he has been doing. He states they told him the discoloration would spread down his leg and it would continue to get smaller. However, he notes the discoloration has actually been spreading more toward his groin, but he has been keeping his leg elevated during the day. He has significant associated pain, it really limits his ROM and his ability to keep up with daily activities. He has several associated blisters and a few of these have ruptured and are draining. He and his are both concerned about preventing infection, he has not been on any antibiotics and they have not been applying any antibiotic ointments/creams. He does report that over the last week, the size of the hematoma has remained stable. He expresses a lot of frustration over the fact that it does not seemed to have improved at all over the last week. [facility] Medical History Atherosclerosis of coronary artery of [place] heart without angina pectoris Essential (primary) hypertension Gout HLD (hyperlipidemia) Home Medications allopurinol 300 mg tablet 300 mg PO DAILY 03/25/14 [History Last Taken Unknown] aspirin 81 mg chewable tablet 81 mg PO DAILY@0800 06/02/18 [History Last Taken Unknown] acetaminophen 500 mg tablet 1,000 mg PO BID 12/01/21 [History Last Taken Unknown] losartan 100 mg tablet 100 mg PO DAILY #90 tabs 10/25/22 [Rx Last Taken Unknown] atenolol 50 mg tablet 50 mg PO QDAY #90 tabs 12/21/22 [Rx Last Taken Unknown] atorvastatin 10 mg tablet 10 mg PO QDAY #90 tabs 12/21/22 [Rx Last Taken Unknown] Allergy/AdvReac Type Severity Reaction Status Date / Time iodine Allergy Other Verified 12/21/22 14:59 simvastatin [From Zocor] AdvReac Severe Myalgias Verified 12/21/22 14:59 hydrochlorothiazide AdvReac Intermediate Other Verified 12/21/22 14:59 Family History Father CAD (coronary artery disease) Surgical History H/O coronary artery bypass surgery (05/1994) History of herniorrhaphy History of tonsillectomy Hx of cholecystectomy Social History Smoking Status: Former smoker Smokeless tobacco user: chewing tobacco how long ago did patient quit smoking: After [place] alcohol intake: current alcohol intake frequency: a few times a month Alcohol type: beer substance use type: does not use caffeine: Yes Type: coffee Number of servings: 3 Vital Signs Vital Signs Vital Signs: 12/24/22 08:10 Temperature 97.5 F L Temperature Source Temporal Pulse Rate 83 Respiratory Rate 22 H Blood Pressure 106/58 L Blood Pressure Mean 74 Blood Pressure Source Monitor Weight Weight: 170 lb 12.573 oz Body Mass Index (BMI) 24.5 Physical Exam Const alert, oriented x3 and no apparent distress General Appearance: cooperative HEENT normocephalic, head/scalp atraumatic, hearing grossly normal bilaterally, external ears normal and external nose normal Eyes EOMs intact bilaterally Neck General: normal visual inspection and trachea midline Resp normal respiratory effort, no retractions and no use of accessory muscles Effort and Inspection: able to speak in complete sentences Cardio regular rate and regular rhythm Extremity Extremity Narrative: L thigh with large hematoma on the distal, medial aspect extending down to the knee. There are multiple, scattered blisters a few of which have popped and are draining serous fluid. No necrotic tissue at this time. DP/PT pulses intact. Skin Wound Narrative: as described above Neuro oriented x3, CN's II-XII intact bilaterally, moves all extremities and no focal motor deficits Speech: speech normal Psych mental status grossly normal Appearance: grossly normal Activity / Motor Behavior: appropriate eye contact Debridement Note Debridement Note Wound debrided: L thigh hematoma and blisters Laterality: Left No debridement was completed: No debridement was completed today Post-Debridement Measurements and Additional Note: Post-Debridement Measurements/Treatment - Nurse 1 - General Ulcer Assessment Start: 12/24/22 08:00 Freq: Status: Active Protocol: SHILPA Activity Type Activity Date Activity User E-sign Co-sign Detail Recorded Client Recorded Date Recorded By Document 12/24/22 08:10 DL [id number] 12/24/22 08:28 DL 12/24/22 08:10 - Today's Visit Information Type of service Initial Visit Arrival Mode Ambulatory Transfer Assistance None Patient Identification Verified (Name & Yes ) Patient Requires Transmission-Based No Precautions Height and Weight Height 5 ft 10 in Weight 170 lb 12.573 oz Weight in Pounds 170.8 lbs Body Mass Index (BMI) 24.5 BMI Classification Normal BSA - Yaa 1.95 Vital Signs Temperature (97.8 F-99.1 F) 97.5 F L Temperature Source Temporal Pulse Rate (60-100) 83 Pulse Location Monitor Respiratory Rate (12-18) 22 H Respiratory rate source Observation Blood Pressure (90/60-120/80) 106/58 L Blood Pressure Mean 74 Source Monitor Pain Scale: 0-10 Numeric Is Patient Pain Free? No L Thigh -Description Sharp,Burning -Duration (hours) Acute -Pain Behavior Guarding, Withdrawal from Touch,Rubbing Site -Pain Aggravating Factors ADL's -Alleviating Factors/Interventions Medication Lower Extremity Assessment/ Foot Assessment/ Toe Nail Assessment Left -Posterior Tibial Palpable No -Posterior Tibial Doppler Monophasic -Dorsalis Pedis Palpable No -Dorsalis Pedis Doppler Monophasic -Extremity Color Hemosiderin -Hair Growth on Legs No -Hair Growth on Toes No -Temperature of Extremity Cool -Capillary Refill Greater than 3 Seconds -Dependent Rubor No -Blanched when Elevated No -Lipodermatosclerosis No -Other Deformity No -Prior Foot Ulcer No -Charcot Joint No -Prior Amputation No -Thick No -Discolored No Right -Popliteal Doppler Multiphasic -Posterior Tibial Palpable Yes -Posterior Tibial Doppler Multiphasic -Dorsalis Pedis Palpable Yes -Extremity Color Hemosiderin -Hair Growth on Legs No -Hair Growth on Toes No -Temperature of Extremity Cool -Capillary Refill Greater than 3 Seconds -Dependent Rubor No -Blanched when Elevated No -Lipodermatosclerosis No -Other Deformity No -Prior Foot Ulcer No -Charcot Joint No -Prior Amputation No -Thick No -Discolored No -Deformed No -Improper Length & Hygeine No Neuropathy Assessment Feet - Top Side and Bottom <Entered> (a) Communication Assessment Preferred language [place]e Able to Read Yes Able to Write Yes Right Hearing Abillity Hard of Hearing Left Hearing Abillity Hard of Hearing Visual Assistive Devices Glasses Teaching Assessment Preferences Verbal,Written, Demonstration Barriers to Learning None Readiness To Learn Good Willingness to Engage in Self Management Med Activies Readiness to Engage in Self Management Med Activities Anxiety Level Anxious Cooperation Cooperative Perception Coherent Interest in Health Problem Asks Questions Education Importance Acknowledges Need Does Patient Smoke tobacco or other No substances Smoking Status Former smoker Is Patient Diabetic No Functional Assessment Recent Decline in Ability to Perform Denies Any Declines Culture/Zoroastrianism/Assembler Crimper Cultural/Zoroastrianism Needs that may affect No Treatment Plan Would you allow our hospital aoc aadc operations staff officer to No meet you for the purpose of spiritual/ emotional support? Assembler Crimper to contact place of quaker No Teaching: Wound Center *Welcome to the Wound Center -Person Taught Patient, Significant Other (a) 1 - + WC - Nurse 1 - General Ulcer Measurement Start: 12/24/22 08:00 Freq: Status: Active Protocol: Activity Type Activity Date Activity User E-sign Co-sign Detail Recorded Client Recorded Date Recorded By Document 12/24/22 08:10 DL [id number] 12/24/22 08:28 DL 12/24/22 08:10 Wound Center Nurse 1 L Thigh -Current Size (cm) - Length 14 -Current Size (cm) - Width 17 -Current Size (cm) - Depth 0.1 -Total Square Cm 238 -Photo Taken Yes -Exudate Amt Large -Exudate Type Serosanguineous -Wound Margin Distinct, Outline Attached -Granulation Amt None Present (0 %) -Necrosis Amt Large (67-100%) -Necrotic Tissue Type Adherent Slough -Structure Exposed N/A -Texture (Mitra-wound Skin Appearance) Localized Edema -Moisture (Mitra-wound Skin Appearance) Dry/Scaly -Color (Mitra-wound Skin Appearance) Ecchymosis, Erythema, Hemosiderin Staining -Temperature (Mitra-wound Skin No Abnormality Appearance) (Pt Warm) -Tenderness on Palpation (Mitra-wound No Skin Appearance) -Ulcer Cleansing Soap and Water -Foul Odor after Cleansing No Left Calf (cm) 37 Left Ankle (cm) 22.7 WC - Nurse 3 - General Ulcer D/C NN Start: 12/24/22 08:00 Freq: Status: Active Protocol: Activity Type Activity Date Activity User E-sign Co-sign Detail Recorded Client Recorded Date Recorded By Document 12/24/22 09:27 DL [id number] 12/24/22 09:29 DL 12/24/22 09:27 Wound Care Center Nurse 3 L Thigh -Ulcer Cleansing Rinsed/ Irrigated with Saline -Foul Odor after Cleansing No -Primary Dressing Applied Aquacel AG 4x4 -Primary Dressing Covered/Secured with Dry Gauze & Roll Gauze, Secured with Tape -Other Covering stockinette -Aquacel AG 4x4 3 Treatment Response Procedure Tolerated Well Pain Scale: 0-10 Numeric Is Patient Pain Free? No L Thigh -Description Dull,Burning -Pain Behavior Rubbing Site -Pain Aggravating Factors ADL's -Alleviating Factors/Interventions Medication WC - Visit Discharge Discharge Condition Stable Ambulatory Status Wheelchair Transportation Private Auto Accompanied by Charges/Coding Visit Charges Office Visits / Consults: [id number] OV L4 New Assessment/Plan Assessment/Plan (1) Traumatic hematoma of left thigh: CODE(S): S70.12XA - Contusion of left thigh, initial encounter PLAN: Patient has significant hematoma of the L thigh with associated skin blistering. At this time, no signs/symptoms concerning for hematoma expansion or infection. I discussed with patient and his that unfortunately there are no good surgical options to address the hematoma. Body will continue to resorb the hematoma over time, but it will take a while, likely months until full resolution. In the meantime, we can act supportively ensuring proper wound care for blisters as they rupture and can address any debridement as may be needed for possible skin necrosis in the future. Will apply Aquacel Ag to the open areas, ABD pad, kerlix, and stockinette. Tubigrip/compression may be beneficial in the future when he is able to tolerate. Change the dressings at least once daily, more often as needed to keep clean and dry. We discussed that the bruising will follow gravity, it may progress to his thigh/groin if his leg is often elevated and will also progress down his leg toward his foot. He currently takes Tylenol PRN for pain, I offered prescription pain medication to be taken as needed but he declines at this time. He may use heat or ice if he finds these helpful. He will return to clinic in 1 week.
[2022-12-31 09:09] VITALS: BP 131/42; PULSE 70; RESP 18; TEMP 35.9; BMI 24.5
--- NOTE | 2022-12-31 15:38 | PCM.WC.PN ---
History of Present Illness Date of Service: 12/31/22 Chief Complaint: L medial distal thigh hematoma History of Wound: Patient is a 77 y/o male who presents today for evaluation and management of a L thigh hematoma. He is accompanied to his appointment today by his . Last week, the patient was tending to his lawn when he tripped with his legs scissor-ed over a wooden fence. With the fall, he felt a sharp pain but this dissipated quickly and he continued with his yard work. Some time later he began to notice his leg swelling and he presented to the [facility] ER. He was found to have an expanding hematoma secondary to bleeding from profunda branch. He was transferred to [facility] as a trauma. At [facility], he was monitored and his hgb stabilized, they determined the bleeding stopped on its own and no surgical intervention was taken. He followed-up once with vascular surgery as an outpatient, he reports they performed doppler on his leg which showed satisfactory flow distal to the hematoma and they instructed him to wrap the hematoma/blisters with dry dressing which he has been doing. He states they told him the discoloration would spread down his leg and it would continue to get smaller. However, he notes the discoloration has actually been spreading more toward his groin, but he has been keeping his leg elevated during the day. He has significant associated pain, it really limits his ROM and his ability to keep up with daily activities. Subjective Subjective This week his pain has improved slightly. He is moving around a little better, for example he was able to walk into clinic today with assistance (versus ). The hematoma has remained stable in size. At home, he primarily rests with his leg elevated. He has seen some bruising progress up into his groin and buttock. His lightheadedness has resolved and he is overall feeling a bit better. He is following up with his PCP next week and they are rechecking his Hgb levels at that time. Unfortunately, were not able to get his insurance to approve wound care supplies. So ultimately instead of Aquacel Ag to open areas, just ended up doing dry gauze wrap changed twice daily. Almost all of the blisters have ruptured, fortunately underneath the skin has so far been intact. There are a few small blisters remaining which are unruptured. He denies N/V, F/C. Objective Data Objective Data Vital Signs: Vital Signs Temp Pulse Resp BP 96.7 F L 70 18 131/42 H 12/31/22 09:09 12/31/22 09:09 12/31/22 09:09 12/31/22 09:09 Weight: 170 lb 12.573 oz Body Mass Index (BMI) 24.5 Charges/Coding Visit Charges Office Visits / Consults: [id number] OV L3 Est Physical Exam Const alert, oriented x3 and no apparent distress General Appearance: cooperative HEENT normocephalic, head/scalp atraumatic, hearing grossly normal bilaterally, external ears normal and external nose normal Eyes EOMs intact bilaterally Neck General: normal visual inspection and trachea midline Resp normal respiratory effort, no retractions and no use of accessory muscles Effort and Inspection: able to speak in complete sentences Cardio regular rate and regular rhythm Extremity Extremity Narrative: L thigh with large hematoma on the distal, medial aspect extending down to the knee. The skin/blisters have improved since last week, very minimal drainage at this point and only a few small blisters remaining. The skin integrity is intact overall, no areas of necrosis or significant breakdown at this time. DP/PT pulses intact. Skin Wound Narrative: as described above Neuro oriented x3, CN's II-XII intact bilaterally, moves all extremities and no focal motor deficits Speech: speech normal Psych mental status grossly normal Appearance: grossly normal Activity / Motor Behavior: appropriate eye contact Debridement Note Debridement Note No debridement was completed: No debridement was completed today Post-Debridement Measurements and Additional Note: Post-Debridement Measurements/Treatment - Nurse 1 - General Ulcer Assessment Start: 12/24/22 08:00 Freq: Status: Active Protocol: SHILPA Activity Type Activity Date Activity User E-sign Co-sign Detail Recorded Client Recorded Date Recorded By Document 12/24/22 08:10 DL [id number] 12/24/22 08:28 DL Document 12/31/22 09:09 JOVI [id number] 12/31/22 09:21 JOVI 12/24/22 12/31/22 08:10 09:09 - Today's Visit Information Type of service Initial Visit Follow-up Visit (Physician/[facility] ) Arrival Mode Ambulatory Ambulatory Transfer Assistance None Patient Identification Verified (Name & Yes Yes ) Patient Requires Transmission-Based No No Precautions Height and Weight Height 5 ft 10 in Weight 170 lb 12.573 oz Weight in Pounds 170.8 lbs Body Mass Index (BMI) 24.5 24.5 BMI Classification Normal Normal BSA - Yaa 1.95 Vital Signs Temperature (97.8 F-99.1 F) 97.5 F L 96.7 F L Temperature Source Temporal Temporal Pulse Rate (60-100) 83 70 Pulse Location Monitor Monitor Respiratory Rate (12-18) 22 H 18 Respiratory rate source Observation Observation Blood Pressure (90/60-120/80) 106/58 L 131/42 H Blood Pressure Mean (mm Hg) 74 71 Source Monitor Manual Position Sitting Blood Pressure Location Left Arm History Since Last Visit- (Skip if this is Patient's initial visit) Have you changed medications since your No last visit? Any new allergies or adverse reactions No Had a fall/change in ADL's that may No increase risk of falls Signs or symptoms of abuse and/or No neglect since last visit Have you been in the hospital since your No last visit? Has dressing in place as prescribed Yes Has compression in place as prescribed No Experienced any changes in pain level or No management Left Footwear Regular Shoe Right Footwear Regular Shoe Pain Scale: 0-10 Numeric Is Patient Pain Free? No No L Thigh -Description Sharp,Burning Sharp -Intensity 5 -Duration (hours) Acute Chronic -Pain Behavior Guarding, Irritability Withdrawal from Touch,Rubbing Site -Pain Aggravating Factors ADL's Changing Position -Alleviating Factors/Interventions Medication Turning/ Repositioning Lower Extremity Assessment/ Foot Assessment/ Toe Nail Assessment Left -Posterior Tibial Palpable No -Posterior Tibial Doppler Monophasic -Dorsalis Pedis Palpable No -Dorsalis Pedis Doppler Monophasic -Extremity Color Hemosiderin -Hair Growth on Legs No -Hair Growth on Toes No -Temperature of Extremity Cool -Capillary Refill Greater than 3 Seconds -Dependent Rubor No -Blanched when Elevated No -Lipodermatosclerosis No -Other Deformity No -Prior Foot Ulcer No -Charcot Joint No -Prior Amputation No -Thick No -Discolored No Right -Popliteal Doppler Multiphasic -Posterior Tibial Palpable Yes -Posterior Tibial Doppler Multiphasic -Dorsalis Pedis Palpable Yes -Extremity Color Hemosiderin -Hair Growth on Legs No -Hair Growth on Toes No -Temperature of Extremity Cool -Capillary Refill Greater than 3 Seconds -Dependent Rubor No -Blanched when Elevated No -Lipodermatosclerosis No -Other Deformity No -Prior Foot Ulcer No -Charcot Joint No -Prior Amputation No -Thick No -Discolored No -Deformed No -Improper Length & Hygeine No Neuropathy Assessment Feet - Top Side and Bottom <Entered> (a) Communication Assessment Preferred language Yakut Able to Read Yes Able to Write Yes Right Hearing Abillity Hard of Hearing Left Hearing Abillity Hard of Hearing Visual Assistive Devices Glasses Teaching Assessment Preferences Verbal,Written, Demonstration Barriers to Learning None Readiness To Learn Good Willingness to Engage in Self Management Med Activies Readiness to Engage in Self Management Med Activities Anxiety Level Anxious Cooperation Cooperative Perception Coherent Interest in Health Problem Asks Questions Education Importance Acknowledges Need Does Patient Smoke tobacco or other No substances Smoking Status Former smoker Is Patient Diabetic No Functional Assessment Recent Decline in Ability to Perform Denies Any Declines Culture/Latter-Day/Car Spotter Cultural/Latter-Day Needs that may affect No Treatment Plan Would you allow our hospital bullard machine operator to No meet you for the purpose of spiritual/ emotional support? Car Spotter to contact place of adventism No Teaching: Wound Center *Welcome to the Wound Center -Person Taught Patient, Significant Other (a) 1 - + WC - Nurse 1 - General Ulcer Measurement Start: 12/24/22 08:00 Freq: Status: Active Protocol: Activity Type Activity Date Activity User E-sign Co-sign Detail Recorded Client Recorded Date Recorded By Document 12/24/22 08:10 DL [id number] 12/24/22 08:28 DL Document 12/31/22 09:09 [id number] 12/31/22 09:21 12/24/22 12/31/22 08:10 09:09 Wound Center Nurse 1 L Thigh -Combined with other wound No -Current Size (cm) - Length 14 0.1 -Current Size (cm) - Width 17 0.1 -Current Size (cm) - Depth 0.1 0.1 -Total Square Cm 238 0.01 -Photo Taken Yes Yes -Epithelialization None Present -Tunneling No -Undermining/Tunneling No -Circular Undermining No -Exudate Amt Large -Exudate Type Serosanguineous -Wound Margin Distinct, Outline Attached -Granulation Amt None Present (0 %) -Necrosis Amt Large (67-100%) -Necrotic Tissue Type Adherent Slough -Structure Exposed N/A -Texture (Mitra-wound Skin Appearance) Localized Edema -Moisture (Mitra-wound Skin Appearance) Dry/Scaly -Color (Mitra-wound Skin Appearance) Ecchymosis, Erythema, Hemosiderin Staining -Temperature (Mitra-wound Skin No Abnormality Appearance) (Pt Warm) -Tenderness on Palpation (Mitra-wound No Skin Appearance) -Ulcer Cleansing Soap and Water -Foul Odor after Cleansing No -Wound Comment(s) left thigh middle of hematoma was 47 .3cm Lower Limb Edema Present Yes Left Calf (cm) 37 Left Ankle (cm) 22.7 WC - Nurse 3 - General Ulcer D/C NN Start: 12/24/22 08:00 Freq: Status: Active Protocol: Activity Type Activity Date Activity User E-sign Co-sign Detail Recorded Client Recorded Date Recorded By Document 12/24/22 09:27 DL [id number] 12/24/22 09:29 DL Document 12/31/22 09:58 MW [id number] 12/31/22 09:59 MW 12/24/22 12/31/22 09:27 09:58 Wound Care Center Nurse 3 L Thigh -Ulcer Cleansing Rinsed/ Irrigated with Saline -Foul Odor after Cleansing No -Primary Dressing Applied Aquacel AG 4x4 -Primary Dressing Covered/Secured with Dry Gauze & Dry Gauze & Roll Gauze, Roll Gauze, Secured with Secured with Tape Tape -Other Covering stockinette -Aquacel AG 4x4 3 Left -Multi-Layered Wrap Application Profore -Compression Wrap Victor Manuel Wrap Treatment Response Procedure Tolerated Well Pain Scale: 0-10 Numeric Is Patient Pain Free? No Yes L Thigh -Description Dull,Burning -Pain Behavior Rubbing Site -Pain Aggravating Factors ADL's -Alleviating Factors/Interventions Medication WC - Visit Discharge Discharge Condition Stable Stable Ambulatory Status Wheelchair Ambulatory Transportation Private Auto Private Auto Accompanied by Medication Reconcilliation completed & No provided to patient/care provider Clinical Summary of Care Provided Yes Assessment/Plan Assessment/Plan (1) Traumatic hematoma of left thigh: CODE(S): S70.12XA - Contusion of left thigh, initial encounter PLAN: Patient has significant hematoma of the L thigh with associated skin blistering. At this time, no signs/symptoms concerning for hematoma expansion or infection. Again reiterated that there no good surgical options to address the hematoma. Body will continue to resorb the hematoma over time, but it will take a while, likely months until full resolution. In the meantime, we can act supportively ensuring proper wound care for blisters as they rupture and can address any debridement as may be needed for possible skin necrosis in the future. Reiterated that the bruising will continue to follow gravity, it may progress to his thigh/groin if his leg is often elevated and will also progress down his leg toward his foot. Will continue with Kerlix wrap for dressing. Will attempt some compression as tolerated via VICTOR MANUEL wrap to help with edema. Patient and were shown how to apply VICTOR MANUEL wrap. He will continue with Tylenol PRN for pain. May also try ice/heat. I am out next week and then have a change of schedule so he will return to clinic in 3 weeks. He will call or return sooner as needed.
[2023-01-20 13:05] VITALS: BP 142/70; PULSE 50; RESP 18; TEMP 35.9; BMI 24.5
--- NOTE | 2023-01-21 00:18 | PN.PCM_ITS ---
History of Present Illness Date of Service: 01/21/23 Chief Complaint: L medial distal thigh hematoma History of Wound: Patient is a 77 y/o male who presents today for evaluation and management of a L thigh hematoma. He is accompanied to his appointment today by his . Last week, the patient was tending to his lawn when he tripped with his legs scissor-ed over a wooden fence. With the fall, he felt a sharp pain but this dissipated quickly and he continued with his yard work. Some time later he began to notice his leg swelling and he presented to the [facility] ER. He was found to have an expanding hematoma secondary to bleeding from profunda branch. He was transferred to [facility] as a trauma. At [facility], he was monitored and his hgb stabilized, they determined the bleeding stopped on its own and no surgical intervention was taken. He followed-up once with vascular surgery as an outpatient, he reports they performed doppler on his leg which showed satisfactory flow distal to the hematoma and they instructed him to wrap the hematoma/blisters with dry dressing which he has been doing. He states they told him the discoloration would spread down his leg and it would continue to get smaller. However, he notes the discoloration has actually been spreading more toward his groin, but he has been keeping his leg elevated during the day. He has significant associated pain, it really limits his ROM and his ability to keep up with daily activities. Subjective Subjective Hematoma has improved in size. Ecchymosis is nearly completely resolved. All of the blisters have resolved/ruptured and skin is intact and well-healed beneath. His pain and ROM/activity tolerance is gradually improving. Does still have some muscle tightness/soreness in his thigh after a lot of activity, but is able to go up and down stairs and walk around without any crutch/walker/etc. He denies claudication, numbness/tingling, motor weakness, rest pain. Objective Data Objective Data Vital Signs: Vital Signs Temp Pulse Resp BP O2 Del Method 96.6 F L 50 L 18 142/70 H Room Air 01/20/23 13:05 01/20/23 13:05 01/20/23 13:05 01/20/23 13:05 01/20/23 13:05 Oxygen Delivery Method Room Air Weight: 170 lb 12.573 oz Body Mass Index (BMI) 24.5 Charges/Coding Visit Charges Office Visits / Consults: [id number] OV L3 Est Physical Exam Const alert, oriented x3 and no apparent distress General Appearance: cooperative HEENT normocephalic, head/scalp atraumatic, hearing grossly normal bilaterally, external ears normal and external nose normal Eyes EOMs intact bilaterally Neck General: normal visual inspection and trachea midline Resp normal respiratory effort, no retractions and no use of accessory muscles Effort and Inspection: able to speak in complete sentences Cardio regular rate and regular rhythm Extremity Extremity Narrative: L thigh with large hematoma on the distal, medial aspect of the thigh extending down to the knee. This has reduced in size since prior visit. It is now completely soft and nontender to palpation. All blisters have resolved/ruptured and skin integrity is intact. DP/PT pulses intact. Skin Wound Narrative: as described above Neuro oriented x3, CN's II-XII intact bilaterally, moves all extremities and no focal motor deficits Speech: speech normal Psych mental status grossly normal Appearance: grossly normal Activity / Motor Behavior: appropriate eye contact Debridement Note Debridement Note No debridement was completed: No debridement was completed today Assessment/Plan Assessment/Plan (1) Traumatic hematoma of left thigh: CODE(S): S70.12XA - Contusion of left thigh, initial encounter PLAN: Since last visit 3 weeks ago, the hematoma is reduced in size and soft to palpation indicative of evolving resolution. The skin integrity is intact with no evidence at this time of necrosis or breakdown or further blistering. No need to continue with dry dressings as all blisters have resolved. Would recommend covering with dressing/long pants if doing work outside to avoid any skin injury to this area. Continue to be cautious in activity to avoid repeat trauma to the area, but otherwise may continue with activity as tolerated. He is discharged from the wound care center. He is instructed to return should he notice any skin breakdown or have other concerns. Also advise that he continue to f/u with PCP, [facility] (who he saw initially), or with me at the vascular surgery office as hematoma resolves or should he develop any claudication/rest pain or any other concerning symptoms. He and his are agreeable to the above plan.
== END 2023-01-20 16:29 | disposition home or self-care (01) ==
LOC: WC 13:15
PROVIDERS: PCP Student in an Organized Health Care Education/Training Program; Referring Provider Nurse Practitioner Primary Care; Visit Provider Physician Assistant
DX: S70.12XA Contusion of left thigh, initial encounter (principal); S30.0XXA Contusion of lower back and pelvis, initial encounter; W18.09XA Striking against other object with subsequent fall, initial encounter; Y93.H2 Activity, gardening and landscaping; Y92.096 Garden or yard of other non-institutional residence as the place of occurrence of the external cause; I25.10 Atherosclerotic heart disease of native coronary artery without angina pectoris; I10 Essential (primary) hypertension; E78.5 Hyperlipidemia, unspecified; M10.9 Gout, unspecified; F17.220 Nicotine dependence, chewing tobacco, uncomplicated; Z79.82 Long term (current) use of aspirin; Z79.899 Other long term (current) drug therapy; Z95.1 Presence of aortocoronary bypass graft
CPT/HCPCS: 99213; G0463

== ENCOUNTER → 2023-08-30 | Outpatient (CLI) | payer MEDICARE, OTHER, SELFPAY ==
[2023-09-01 13:09] LABS: PSA, Free 1.14 ng/mL; PSA, Free % 13.1 % (.)
== END | disposition home or self-care (01) ==
LOC: LAB 14:13
PROVIDERS: PCP Student in an Organized Health Care Education/Training Program; Referring Provider Urology; Visit Provider Urology
DX: R97.20 Elevated prostate specific antigen [PSA] (principal); Z12.5 Encounter for screening for malignant neoplasm of prostate
CPT/HCPCS: 36415; 84153; 84154; G0103

== ENCOUNTER → 2023-10-03 | Outpatient (CLI) | payer MEDICARE, OTHER, SELFPAY ==
--- NOTE | 2023-10-03 | PROSBIL_PTH ---
PATIENT: JUSTA MARIANO LOC: [facility] U#:[id number] AGE/SX: 78/M ROOM: RE10/03/[address]: Dr. Louis Lock MD : 1945 BED: DIS: 10/03/2023 SPEC #: [id number] RECD: 10/03/23 16:11 STATUS: CORINA ALAINA #: [id number] HITESH: 10/03/23 00:[address]: Louis Lock DEPT: SURGICAL PATHOLOGY RECD BY: Kel Champion ENTERED: 10/04/23 09:29 SP TYPE: PROST BX MERE DR: Dr. Lonnie Chaney DO Tissues: A - PROSTATE RIGHT B - PROSTATE RIGHT C - PROSTATE RIGHT D - PROSTATE LEFT E - PROSTATE LEFT F - PROSTATE LEFT Procedures: PROSTATE BX HEADER OPERATION: Prostate biopsy PRE-OP DIAGNOSIS: Elevated PSA TISSUE SUBMITTED: A - Right apex, B - Right mid, C - Right base, D - Left apex, E - Left mid, F - Left base MICROSCOPIC DIAGNOSIS A. Prostate, right apex, core biopsy: Prostatic adenocarcinoma. Guille grade: 3+3=6 Number of cores involved: 1/1 Proportion of tissue involved: ~40% Perineural invasion: Not identified. Greatest tumor length: 0.6 cm Chronic inflammation. B. Prostate, right mid, core biopsy: Prostatic adenocarcinoma. [place] grade: 3+3=6 Number of cores involved: 1/2 Proportion of tissue involved: ~25 % Perineural invasion: Not identified. Greatest tumor length: 0.5 cm Chronic inflammation. C. Prostate, right base, core biopsy: Prostatic adenocarcinoma. Guille grade: 3+3=6 Number of cores involved: 1/2 Proportion of tissue involved: ~5% Perineural invasion: Not identified. 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 See comment. D. Prostate, left apex, core biopsy: Prostatic adenocarcinoma. Guille grade: 3+3=6 Number of cores involved: 1/1 Proportion of tissue involved: ~20 % Perineural invasion: Not identified. Greatest tumor length: 0.2 cm See comment. E. Prostate, left mid, core biopsy: Prostatic adenocarcinoma. Guille grade: 3+3=6 Number of cores involved: 1/2 Proportion of tissue involved: <5 % Perineural invasion: Not identified. Greatest tumor length: 0.1 cm See comment. F. Prostate, left base, core biopsy: Prostatic adenocarcinoma. Guille grade: 3+3=6 Number of cores involved: 2/2 Proportion of tissue involved: ~5 % Perineural invasion: Not identified. Greatest tumor length: 0.2 cm See comment. SJ/mr 10/05/2023 COMMENT C-F. Immunohistochemistry ([id number]) supports the above diagnosis. Case has been reviewed in consultation with Dr. Moise who concurs with the above diagnosis. IDC:AM MICROSCOPIC DESCRIPTION Slides are reviewed. GROSS DESCRIPTION A - Received is one container designated prostate, right apex. The specimen consists of one elongated fragments of light moralez-white soft tissue measuring 1.6 cm in length and 0.1 cm in diameter. The specimen is totally submitted in one cassette. B - Received is one container designated prostate, right mid. The specimen consists of two elongated fragments of light moralez-white soft tissue measuring 1.0 and 1.5 cm in length and 0.1 cm in diameter. The specimen is totally submitted in one cassette. C - Received is one container designated prostate, right base. The specimen consists of two elongated fragments of light moralez-white soft tissue each measuring 1.1 cm in length and 0.1 cm in diameter. The specimen is totally submitted in one cassette. D - Received is one container designated prostate, left apex. The specimen consists of one elongated fragments of light moralez-white soft tissue measuring 1.0 cm in length and 0.1 cm in diameter. The specimen is totally submitted in one cassette. E - Received is one container designated prostate, left mid. The specimen consists of two elongated fragments of light moralez-white soft tissue measuring 0.9 and 1.1 cm in length and 0.1 cm in diameter. The specimen is totally submitted in one cassette. F - Received is one container designated prostate, left base. The specimen consists of two elongated fragments of light moralez-white soft tissue each measuring 1.0 cm in length and 0.1 cm in diameter. The specimen is totally submitted in one cassette. COLE/ 10/04/23 TC:0 CPT: G0146
--- NOTE | 2023-10-03 | IMM_PTH ---
PATIENT: JUSTA MARIANO LOC: [facility] U#:[id number] AGE/SX: 78/M ROOM: RE10/03/[address]: Dr. Louis Lock MD : 1945 BED: DIS: 10/03/2023 SPEC #: [id number] RECD: 10/05/23 12:03 STATUS: CORINA REQ #: [id number] HITESH: 10/03/23 00:[address]: Louis Lock DEPT: IMMUNOHISTOCHEMISTRY RECD BY: Warren Ayon ENTERED: 10/05/23 12:04 SP TYPE: IMMUNO OTHR DR: Dr. Lonnie Chaney DO Tissues: C - PROSTATE RIGHT D - PROSTATE LEFT E - PROSTATE LEFT F - PROSTATE LEFT Procedures: 34BE12 (add) P40 (add) 34BE12 (initial) PHYSICIAN & INSTITUTION [place] [id number] SPECIMEN INFORMATION: Tissue Source: C- Prostate right base, D- Prostate left apex, E- Prostate left mid, F- Prostate left base Clinical Info: Elevated PSA Specimen Number: [id number] C-F CPT code: 81435,69091t5 METHODOLOGY: Deparaffinized sections of prefer/formalin-fixed tissue or PAP/DQ stained slides are incubated with monoclonal/polyclonal antibodies/oligonucleotide probes. Localization is made via biotin free immunoperoxidase method. Appropriate controls are performed and reacted as expected. Results on target cell population are indicated in the following table: RESULTS: ANTIBODY / CLONE RESULT Block C 34BE12 (34BE12) negative P40 (BC28) negative Block D 34BE12 (34BE12) negative P40 (BC28) negative Block E 34BE12 (34BE12) negative P40 (BC28) negative Block F 34BE12 (34BE12) negative P40 (BC28) negative These tests were developed and their performance characteristics determined by [facility]. They may not have been cleared or approved by the U.S. Food and Drug Administration. The FDA has determined that such clearance or approval is not necessary. The above immunohistochemical/dualISH markers are ordered and reviewed by the Pathologist. INTERPRETATION: C. Prostate right base, biopsy: Adenocarcinoma. D. Prostate left apex, biopsy: Adenocarcinoma. E. Prostate left mid, biopsy: Adenocarcinoma. F. Prostate left base, biopsy: Adenocarcinoma. COLE/ 10/06/23
== END | disposition home or self-care (01) ==
LOC: LABSPEC 16:20
PROVIDERS: PCP Student in an Organized Health Care Education/Training Program; Referring Provider Urology; Visit Provider Urology
DX: R97.20 Elevated prostate specific antigen [PSA] (principal)
CPT/HCPCS: 88305; 88341; 88342; G0416

== ENCOUNTER → 2023-10-25 | Outpatient (CLI) | payer MEDICARE, OTHER, SELFPAY ==
--- NOTE | 2023-10-25 09:30 | PET_ITS ---
EXAMINATION: 18 F Pylarify PET-CT HISTORY: A 78-year-old male with apparent history of primary prostate carcinoma presenting for initial staging examination. COMPARISON EXAMINATION: None available INDEX LESION SIZE PROMISE SCORE SUV INTERPRETATION Prostate gland 11.9-mm (largest) 2 10.74 Fulfills quantitative criteria for viable neoplasm Right iliac wing R2 7.3 Fulfills borderline quantitative criteria for viable neoplasm TECHNIQUE: Following the intravenous administration of 9.49 mCi of 18 F Pylarify via the left antecubital fossa, image acquisitions of the head, neck, chest, abdomen and pelvis to the level of the mid thigh at 73 minutes post-tracer distribution reveal: The examination was interpreted using the EANM (Vicky et al., Journal of Nuclear Medicine Molecular Imaging 44:1622, 2017) and PROMISE (Sol et al., Journal of Nuclear Medicine 59:469, 2018) interpretive criteria. HEIGHT: 71 inches. WEIGHT: 173 lbs. PSMA expression score PROMISE criteria: High (3): SUV ? parotid-salivary gland, intermediate (2): SUV ? liver, low (1): > blood pool, < liver, (0): < blood pool. SUV reference values: Parotid glands 19.22. Normal liver parenchyma 9.2. Blood pool 2.7. FINDINGS: Head/Neck: Symmetric radiotracer concentration is defined in the bilateral parotid and submandibular glands. There is physiologic tracer activity within the context of the nasal cavity. There is no evidence of abnormal increased radiopharmaceutical concentration within the context of the cranial vault. CHEST: There is no evidence of abnormal increased radiotracer within the context of the bilateral hemithorax pulmonary parenchyma, mediastinal structures and right-left thoracic perihilum. Pertinent chest CT findings are as follows. There is evidence of prior median sternotomy. There is atherosclerotic calcification defined in the thoracic aorta without evidence of dilatation-aneurysm formation. Coronary arterial calcification is observed. Scattered bilateral axillary and mediastinal soft tissue densities are ametabolic. Abdomen/Pelvis: Enhanced radiopharmaceutical concentration is defined within the prostate gland approximating the apex to the right of the midline and left base. The calculated maximal standard uptake value is 10.74. The PROMISE score is 2. The largest metabolic, morphologic abnormality demonstrates a maximal axial diameter of 11.9-mm. Physiologic radiopharmaceutical concentration is otherwise noted in the hepatic and splenic parenchyma, visualized intestinal tract, right and left kidneys, urinary bladder. Review of CT of the abdomen and pelvis reveals the following. The gallbladder is not well-defined. There is atherosclerotic calcification defined in the abdominal aorta without evidence of dilatation-aneurysm formation. Pelvic arterial calcification is observed. Right and left inguinal soft tissue densities are ametabolic. SKELETAL: Facilitated uptake is noted in the right iliac wing. The calculated maximal standard uptake value is 7.3. The PROMISE score approximates 2. PET/PET/CT Tumor Base -Thigh Init IMPRESSION: 1. ABNORMAL EXAMINATION INDICATIVE OF MALIGNANT VIABLE NEOPLASM. 2. Increased tracer concentration noted in the prostate gland fulfills quantitative criteria for malignant transformation. 3. Facilitated radiopharmaceutical concentration manifest in the right iliac wing fulfills borderline quantitative criteria for neoplastic infiltration. (Sol et al., Journal of Nuclear Medicine 59:469, 2018). Electronic Signature Duane Norwood DO Accurate Quantification of SUVs and standardized PROMISE scores for this report are calculated using the exclusive [employer], ([place]. Patent No. [id number] [phone] [place] patent [id number] [phone] [id number] ). Standardization and correction of the FDG SUV metric exclusively available with [employer] intellectual property, allow for vendor non-specific objective quantitative sequential FDG PET-CT comparison and otherwise unobtainable optimization of the sensitivity and specificity of the examination. [email or web address] Electronically Signed: Duane Norwood DO at 22:39 EDT ,
== END | disposition home or self-care (01) ==
PROVIDERS: PCP Student in an Organized Health Care Education/Training Program; Referring Provider Urology; Visit Provider Urology
DX: C61 Malignant neoplasm of prostate (principal)
CPT/HCPCS: 78815; A9595

== ENCOUNTER → 2023-10-27 | Outpatient (CLI) | payer MEDICARE, OTHER, SELFPAY ==
[2023-10-27 09:53] LABS: AST(SGOT) 17 U/L (15-37); Alanine Aminotransfer ALT/SGPT 26 U/L (16-61); Albumin, Serum 3.7 g/dL (3.2-5.0); Alkaline Phosphatase 75 U/L (45-117); Cholesterol 98 mg/dL (200); Globulin 3.2 g/dL (2.2-4.2); High Density Lipoprotein 32 mg/dL; Protein, Total 6.9 g/dL (6.4-8.2); Triglycerides 98 mg/dL; Very Low Density Lipoprotein 20 mg/dL (5-40)
== END | disposition home or self-care (01) ==
LOC: LAB 09:03
PROVIDERS: PCP Student in an Organized Health Care Education/Training Program; Referring Provider Nurse Practitioner Gerontology; Visit Provider Nurse Practitioner Gerontology
DX: E78.00 Pure hypercholesterolemia, unspecified (principal)
CPT/HCPCS: 36415; 80061; 80076

== ENCOUNTER → 2023-11-03 | Outpatient (CLI) | payer MEDICARE, OTHER, SELFPAY ==
--- NOTE | 2023-11-03 08:44 | NM_ITS ---
CLINICAL: 78-year-old male with history of primary prostate carcinoma. WHOLE BODY 99m Tc MDP RADIONUCLIDE BONE SCINTIGRAPHY COMPARISON: F [address] examination 10/25/2023 FINDINGS: Following the intravenous administration of 27.0 mCi of 99m Tc MDP, whole body bone images reveal: 1. Increased tracer concentration is defined in the upper cervical spine posteriorly on the right, acromioclavicular and sternoclavicular compartments of both shoulders, the wrists bilaterally, the ninth and 11th thoracic vertebra posteriorly on the right, the second through fifth lumbar vertebra posteriorly on the left, the knees bilaterally. 2. The remaining skeletal structures are scintigraphically unremarkable with normal-appearing renal images and urinary bladder activity identified. NM/Bone Scan Whole Body IMPRESSION: 1. The increase in radiopharmaceutical defined in the cervical and thoracic, lumbar spine, bilateral shoulder and wrist articulations, both knees is commensurate with degenerative arthropathy. 2. There is no definitive scintigraphic evidence of skeletal metastatic disease with special attention paid to the right hemipelvis. Electronically Signed: Duane Norwood DO at 23:33 EDT ,
== END | disposition home or self-care (01) ==
PROVIDERS: PCP Student in an Organized Health Care Education/Training Program; Referring Provider Urology; Visit Provider Urology
DX: C61 Malignant neoplasm of prostate (principal)
CPT/HCPCS: 78306; A9503

== ENCOUNTER 2023-11-16 10:21 | Observation (INO) | payer MEDICARE, OTHER, SELFPAY ==
[2023-11-07 15:49] LABS: Hematocrit 42.9 % (40-54); Mean Corp Hgb Conc 32.6 g/dL (32-36); Mean Corpuscular Hgb 30.2 pg (27.0-32.0); Mean Corpuscular Volume 92.5 fL (80-94); Mean Platelet Vol. 9.3 fl (6.2-12.0); Platelet Count 225 K/mm3 (150-450); RBC Distribution Width CV 12.5 % (11.6-14.6); RBC Distribution Width SD 42.2 fl (35.1-43.9); Red Blood Count 4.64 M/mm3 (4.6-6.2); White Blood Count 7.9 K/mm3 (4.4-11.0)
[2023-11-07 19:19] LABS: Anion Gap 3 (5-15); BUN 20 mg/dL (7-18); BUN/Creat Ratio 21.8 RATIO (10-20); Calcium,Total 9.3 mg/dL (8.5-10.1); Chloride 107 mmol/L (98-107); Creatinine, Serum 0.92 mg/dL (0.70-1.30); EST Glomerular Filtration Rate 85 mL/min (>60); Est Glom Filt Rate - Afr Amer 103 mL/min (>60); Glucose 103 mg/dL (74-106); Potassium 4.3 mmol/L (3.5-5.1); Sodium Level 137 mmol/L (136-145)
[2023-11-16] VITALS (16 sets, daily range): BP systolic 75–134; BP diastolic 44–83; PULSE 52–64; RESP 15–18; TEMP 36.6–37; O2SAT 88–98; BMI 24.5; BMI 26.1
--- NOTE | 2023-11-16 | PROST_PTH ---
PATIENT: JUSTA MARIANO LOC: MS3 U#:[id number] AGE/SX: 78/M ROOM: [facility] [place] RE11/16/[address]: Dr. Louis Lock MD : 1945 BED: 1 DIS: 11/17/2023 SPEC #: [id number] RECD: 11/16/23 11:11 STATUS: CORINA FOLEY #: [id number] HITESH: 11/16/23 00:[address]: Louis Lock DEPT: SURGICAL PATHOLOGY RECD BY: Wei Terrell ENTERED: 11/16/23 12:46 SP TYPE: PROSTATE OTHR DR: Dr. Lonnie Chaney DO Tissues: A - Lymph node of pelvis, NOS B - Lymph node of pelvis, NOS C - Prostate, NOS Procedures: Surgery Specimen Level V Surgery Specimen Level HEADER OPERATION: Laparoscopic robotic radical prostatectomy PRE-OP DIAGNOSIS: Prostate cancer TISSUE SUBMITTED: A- Left pelvic lymph node, B- Right pelvic lymph node, C- Prostate MICROSCOPIC DIAGNOSIS A. Left pelvic lymph node, regional dissection: One lymph node, negative for metastatic carcinoma. B. Right pelvic lymph node, regiional dissection: Two out of two lymph node, negative for metastatic carcinoma. C. Prostate, radical prostatectomy: Prostatic adenocarcinoma. See cancer summary in the comment section below. COLE/ 11/21/2023 COMMENT PROSTATE CANCER (RADICAL) SUMMARY: Procedure: Radical Prostatectomy Prostate Size: Weight: 29.4 gm Size: 3.0cm transversely, 3.0cm anterior-posteriorly, 3.0cm craniocaudally Histologic Type: Adenocarcinoma Histologic Grade: 3+4=7 Percent of Pattern 4: Percent of Pattern 5: Intraductal Carcinoma: Not identified Tumor Quantitation: Estimated percentage of prostate involved by tumor: 30% Tumor size: Tumor involved both right and left lobe epical, mid and basal portion prostate and tumor in the left lobe measures approximately 2.0 x 1.0 x 1.0cm and tumor in the right lobe measures approximately 2.5 x 1.5 x 1.5cm. Extraprostatic Extension: Not identified Urinary Bladder Neck Invasion: Not identified Seminal Vesicle Invasion: Not identified Lymphvascular Invasion: Not identified Perineural Invasion: Present, focal Margins: Margin involved by invasive carcinoma, Linear length of positive margin - 1.0 cm Focality - unifocal Location of positive margin - left posterior lobe [place] pattern at positive margin: Pattern 3 Regional Lymph Nodes: Number of lymph nodes involved: 0 Total number of lymph nodes examined:3 Treatment Effect: Unknown presurgical therapy Additional Pathologic Findings: - Benign prostatic hyperplasia, glandular and stromal type, - Chronic inflammation. - Focal high-grade prostatic intraepithelial neoplasia (HGPIN). Clinical History: Please make reference to previous specimen [id number] prostate right apex, right mid and right base and prostate, left apex, left mid, left base core biopsy diagnosis of prostatic adenocarcinoma. PATHOLOGIC STAGE: pT2 pN0 pMx The above summary is in compliance with [employer] (CAP) Cancer Protocols Checklist and [place] Joint Committee on Cancer (AJCC), Staging Manual, 8th Ed. Case has been reviewed in consultation with Dr. Moise who concurs with the above diagnosis. IDC:AM MICROSCOPIC DESCRIPTION Slides are reviewed. GROSS DESCRIPTION A. Received in fixative is one container labeled with the patient's name and designated Left pelvic lymph node. The specimen consists of a piece of yellow adipose tissue measuring 2.5 x 1.2 x 0.5cm. No obvious gross lymph node is identified. Specimen is bisected and submitted entirely in one cassette. B. Received in fixative is one container labeled with the patient's name and designated Right pelvic lymph node. The specimen consists of a piece of adipose tissue measuring 2.0 x 1.2 x 0.5cm. No obvious gross lymph node is identified. The entire specimen is submitted in one cassette. C. Received in fixative is one container labeled with the patient's name and designated prostate. The specimen consists of a radical prostatectomy specimen consisting of prostate and bilateral seminal vesicles and vas deferens. The specimen weighs 29.4 gm. The prostate measures 3.0 cm transversely, 3.0 cm anterior-posteriorly and 3.0 cm craniocaudally. The right seminal vesicle measures 4.0 x 1.5 x 1.0 cm and right vas deferens measures 4.5 cm in length and 0.4 cm in diameter. The left seminal vesicle measures 3.5 x 1.0 x 0.5 cm and the left vas deferens measures 4.5 cm in length and 0.3 cm in diameter. The prostate is inked as follows: anterior surface - yellow, posterior surface - black, right lateral surface and anterior surface seminal vesicle and vas deferens - blue, left lateral surface and anterior surface, left seminal vesicle and vas deferens - green. The bilateral seminal vesicles and vas deferens are inked as follows: Posterior surface bilateral seminal vesicle and vas deferens - black, anterior surface right seminal vesicle and vas deferens - blue and anterior left seminal vesicle and vas deferens - green. Sections do not reveal any obvious mass lesions. [employer] sections are submitted in 20 cassettes as follows: 1 - right seminal vesicle and vas deferens, 2 - left seminal vesicle and vas deferens, 3 - apical (urethral) margin, enface, 4&5 - bladder neck and basal portion of prostate margin, enface, 6 to 10 - apical portion prostate, 11 to 14 - middle portion prostate, 15 to 20 - basal portion prostate. SJ: 11/17/2023 TC:0 CPT: 91580, 06788p2
[2023-11-16] MEDS: Lactated Ringers 1,000 ML 15 ML IV (06:04)
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
[2023-11-16] MEDS: Cefazolin 2 GM in 0.9% Normal Saline (100mL Bag) 100 ML IV (07:24)
[2023-11-16] MEDS: Bupivacaine Mpf 0.5% 30 ML VIAL (10:16)
--- NOTE | 2023-11-16 10:21 | PCM.DC ---
Discharge Instructions Diet Discharge Diet: No restrictions, Light diet - advance as tolerated and Soft diet Activity Discharge Activity: May Not Drive and May Shower May shower in (days): 1 Dressing / Incision Call your doctor if you observe: Fever of 101 or Higher Cleanse incision/area with: Keep Dressing Clean & Dry Catheter: Banks to leg bag and Banks to large bag Drain: Max Follow Up Care Please Follow Up With: Louis Lock MD When: 2 weeks Test Results: Test results from this visit will be discussed in further detail at your follow-up appointment, if applicable. Discharge Plan Admission Primary Reason for Your Visit: Robotic radical prostatectomy Attending Provider: Louis Lock Primary Care Provider: Lonnie Chaney Instructions Patient Instructions: Radical Prostatectomy Dc Print Language: Green[place]ic Discharge Orders/Prescriptions Prescriptions: New ciprofloxacin HCl [Cipro] 500 mg tablet 500 mg PO BID Qty: 20 0RF oxycodone 5 mg tablet 5 mg PO Q6H PRN (Reason: pain) 7 Days Qty: 14 0RF docusate sodium [Colace] 100 mg capsule 100 mg PO BID Qty: 20 0RF Continued atenolol 25 mg tablet 25 mg PO QDAY Qty: 90 3RF allopurinol 300 MG tablet 300 mg PO DAILY aspirin 81 mg tablet,chewable 81 mg PO DAILY@0800 atorvastatin 10 mg tablet 10 mg PO QHS losartan 100 mg tablet 100 mg PO DAILY Qty: 90 3RF amlodipine 5 mg tablet 5 mg PO DAILY Qty: 30 11RF Referrals / Follow Up: Louis Lock MD [Med Staff - Active Staff] - Lonnie Chaney DO [Primary Care Provider] - Disposition Disposition (needs filled in before D/C Order can be placed): Home, Self Care
--- NOTE | 2023-11-16 10:22 | OP.PCM_ITS ---
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 Patient was taken back to the operating room after smooth induction of anesthesia he was placed in dorsolithotomy position the abdomen and penis were prepped and draped in usual sterile fashion Banks catheter was placed into the bladder I then inspected the abdomen he was a thin male with a small umbilical hernia I put in the camera trocar above the umbilical hernia right arm trocar left arm trocar is environmental services assistant suction port air seal port and a left arm robotic port. The robot was docked the patient was placed in Trendelenburg we f huang up the sigmoid colon off the lateral wall to allow retraction of the colon from the pelvis I then went posterior to the bladder with a Retzius sparing approach I first dissected and freed up the endopelvic fascia posteriorly went above this peeled it off the prostate posteriorly all the way to the apex I then pulled back and I took down the right vas deferens and seminal vesicles I then took the pedicle and then followed the prostate laterally until I got to the edge of the prostate I then identified the plane between the prostate and lateral wall and then freed up the prostate off the lateral wall coming anteriorly and went to the left side freed up the prostate anteriorly as well there was a small deviation into the prostate cell but this was corrected immediately and then went back to the right side and then freed up the prostate laterally on the right side then transected through the urethra put a stay stitch in the urethra and then transected the rest of the prostate off the bladder anteriorly working away to the apex I then was able to sweep the neurovascular bundles off both sides and worked my way up to the apex of the prostate and dissected out the prostate prostate apex I then transected the urethra at the apex and then remove the prostate we then completed the anastomosis between the bladder neck and the urethra with a running stitches with a 030 strata fix stitch in a continuous fashion running it from the 12:00 to the 6:00 posterior to anterior to do a complete anastomosis of the bladder neck to the urethra. Again this was done to the Retzius sparing approach. Once anastomosis was done then I went and opened up the peritoneal window the lymph node dissection on the right side took out lymph nodes from the right pelvic lymph nodes these look negative, then went to the left side and the lymph node dissection from the obturator nerve and paper folding machine operator space on the left side again these lymph nodes look negative and then at this point the prostate was removed patient anesthetic was reversed we closed all the incisions with subcuticular stitches the extraction site was the umbilicus we closed this with 0 Vicryl [id number] x 2 and blood loss was about 200 cc patient anesthetic reversed and taken back to PACU in good condition. Surgeon: Louis Lock Type of Anesthesia: General Estimated Blood Loss (mL): 200 Admit VTE Documentation VTE Present on Admission: No VTE Mechan Device Prophylaxis: SCD's VTE Pharm Prophylaxis ordered?: No
--- NOTE | 2023-11-16 10:36 | PCM.POST.ANE ---
Anesthesia: Postop Eval I Current Vital Signs Temperature: 98.6 F Pulse Rate: 62 Blood Pressure: 83/50 (fluids opened) Respiratory Rate: 16 Pulse Ox: 93 Oxygen Delivery Method: Nasal Cannula Oxygen Flow Rate (L/min): 2 Assessment Airway patent: Yes Spontaneous unlabored respirations: Yes Mental status: Awake and Calm nausea: No Vomiting: No Anesthesia Complication: No Fluid Hydration Crystalloid volume administer (ml): 1,300 Total IV fluid infused: 1,300 Progress Note Anesthesia document: Postop Eval 1 completed: Yes
[2023-11-16] MEDS: Ketorolac 15 MG/ML Vial IV ×2 (13:27→17:06)
[2023-11-16] MEDS: 0.9% Normal Saline (1000mL) 1,000 ML 50 ML IV (13:28)
--- NOTE | 2023-11-16 15:17 | POSTOPAN2_ITS ---
Anesthesia Postop Eval I Sum Postop Eval Completion status Anesthesia document: Postop Eval 1 completed: Yes Anesthesia Postop Eval I Summary Anesthesia Postop Eval I Summary: Anesthesia Postop Eval I: Assessment Summary Airway patent Yes 11/16/23 10:38 LINSEED OIL ORDER FILLER.CATHIEOBMerari Spontaneous unlabored Yes 11/16/23 10:38 LINSEED OIL ORDER FILLER.FATEMEH respirations Mental status Awake,Calm 11/16/23 10:38 LINSEED OIL ORDER FILLER.CATHIEOBMerari nausea No 11/16/23 10:38 LINSEED OIL ORDER FILLER.FATEMEH Vomiting No 11/16/23 10:38 LINSEED OIL ORDER FILLER.FATEMEH Anesthesia Postop Eval I: Fluid Summary Crystalloid volume administer 1,300 11/16/23 10:38 LINSEED OIL ORDER FILLER.CATHIEOBY (ml) Colloids volume administered ( ml) Blood Product volume administered (ml) Total IV fluid infused 1,300 11/16/23 10:38 LINSEED OIL ORDER FILLER.FATEMEH Anesthesia Postop Eval I: Summary Notes Anesthesia Complication No 11/16/23 10:38 LINSEED OIL ORDER FILLER.FATEMEH Anesthesia Complication Comment: Post-operative progress note Anesthesia: Postop Eval II Evaluation Mental status: Awake and Calm Pain Level: 1 nausea: No Vomiting: No Complications Anesthesia Complication: No
--- NOTE | 2023-11-16 15:17 | PCM.POSTANE2 ---
Anesthesia Postop Eval I Sum Postop Eval Completion status Anesthesia document: Postop Eval 1 completed: Yes Anesthesia Postop Eval I Summary Anesthesia Postop Eval I Summary: Anesthesia Postop Eval I: Assessment Summary Airway patent Yes 11/16/23 10:38 TUMBLER DYEING MACHINE OPERATOR.CATHIEOBMerari Spontaneous unlabored Yes 11/16/23 10:38 TUMBLER DYEING MACHINE OPERATOR.FATEMEH respirations Mental status Awake,Calm 11/16/23 10:38 TUMBLER DYEING MACHINE OPERATOR.CATHIEOBMerari nausea No 11/16/23 10:38 TUMBLER DYEING MACHINE OPERATOR.FATEMEH Vomiting No 11/16/23 10:38 TUMBLER DYEING MACHINE OPERATOR.FATEMEH Anesthesia Postop Eval I: Fluid Summary Crystalloid volume administer 1,300 11/16/23 10:38 TUMBLER DYEING MACHINE OPERATOR.CATHIEOBY (ml) Colloids volume administered ( ml) Blood Product volume administered (ml) Total IV fluid infused 1,300 11/16/23 10:38 TUMBLER DYEING MACHINE OPERATOR.FATEMEH Anesthesia Postop Eval I: Summary Notes Anesthesia Complication No 11/16/23 10:38 TUMBLER DYEING MACHINE OPERATOR.FATEMEH Anesthesia Complication Comment: Post-operative progress note Anesthesia: Postop Eval II Evaluation Mental status: Awake and Calm Pain Level: 1 nausea: No Vomiting: No Complications Anesthesia Complication: No
[2023-11-16] MEDS: Ciprofloxacin 500 MG Tablet PO (16:43)
[2023-11-16] MEDS: Atorvastatin Calcium 10 MG Tablet PO (20:57)
[2023-11-16] MEDS: Docusate Sodium 100 MG Capsule 200 MG PO (20:57)
[2023-11-17 00:41] VITALS: BP 133/69; PULSE 58; RESP 18; TEMP 36.9; O2SAT 94
[2023-11-17] MEDS: 0.9% Saline Lock 10 ML Syringe IV ×2 (00:43→05:34)
[2023-11-17] MEDS: Ketorolac 15 MG/ML Vial IV ×2 (00:43→05:34)
[2023-11-17 05:32] VITALS: BP 130/63; PULSE 59; RESP 16; TEMP 36.3; O2SAT 97
[2023-11-17] MEDS: 0.9% Normal Saline (1000mL) 1,000 ML 50 ML IV (05:33)
--- NOTE | 2023-11-17 07:48 | PCM.PN.GU ---
Subjective Subjective s/p prostatectomy home today with Banks to leg bag. Objective Data Objective Data Vital Signs: Vital Signs Temp Pulse Resp BP Pulse Ox O2 Del Method O2 Flow Rate 97.4 F L 59 L 16 130/63 H 97 Room Air 4 11/17/23 05:32 11/17/23 05:32 11/17/23 05:32 11/17/23 05:32 11/17/23 05:32 11/17/23 05:32 11/16/23 12:27 Oxygen Flow Rate (L/min) 4 Oxygen Delivery Method Room Air Weight: 82.599 kg Body Mass Index (BMI) 26.1 Intake & Output: Intake and Output for Last 24 Hours 11/15/23 11/16/23 11/17/23 23:59 23:59 23:59 Intake Total 1305 / 1305 1204.17 / 1204.17 Output Total 55 / 55 750 / 750 Balance 1250 / 1250 454.17 / 454.17 Lab / Micro Data 11/07/23 15:07 11/07/23 15:07
[2023-11-17 08:30] VITALS: O2SAT 95
[2023-11-17 09:05] VITALS: BP 114/69; PULSE 61; RESP 18; TEMP 36.6; O2SAT 95
--- NOTE | 2023-11-17 09:27 | CASEMGMT ---
DAPHNEY CM reviewed DC instructions, no DC needs noted. 6 clicks = 22.
--- NOTE | 2023-11-17 09:32 | CASEMGMT ---
Social Work SW met with pt to discuss advance directives.? Pt confirms he has completed a living will and health care POA naming his significant other Lupe Branch.? Pt notified that documents are not on file at [facility] and SW requested they be brought in for scanning into the EMR.? YOBANI Baum
--- NOTE | 2023-11-17 09:51 | NURSING ---
Patient states he will take all regular medications when he gets home. Patient also refused to learn/be taught how to use leg bag. He only wants to use large boyce bag. Education given. Patient still only wants to use large bag.
== END 2023-11-17 10:07 | disposition home or self-care (01) ==
LOC: SDC 11:21 → MS3 11:21
PROVIDERS: Anesthesiology; Admitting Provider Urology; PCP Student in an Organized Health Care Education/Training Program; Referring Provider Urology; Visit Provider Urology
PROC: 0VT04ZZ Resection of Prostate, Percutaneous Endoscopic Approach (ICD-10-PCS; CPT 55866; principal; 2023-11-16 07:10)
DX: C61 Malignant neoplasm of prostate (principal); I10 Essential (primary) hypertension; F17.220 Nicotine dependence, chewing tobacco, uncomplicated; I25.10 Atherosclerotic heart disease of native coronary artery without angina pectoris; E78.5 Hyperlipidemia, unspecified; K42.9 Umbilical hernia without obstruction or gangrene; Z79.899 Other long term (current) drug therapy; Z79.82 Long term (current) use of aspirin
CPT/HCPCS: 55866; 00865; 36415; 80048; 85027; 86850; 86900; 86901; 88307; 88309; 94668; 96374; 96376; 99221; 99252; J7030; J7120; A4216; G0378; G0463; J2405

== ENCOUNTER 2024-01-08 14:30 | Emergency (ER) | payer MEDICARE, OTHER, SELFPAY ==
[2024-01-08 14:32] VITALS: BP 127/95; PULSE 62; RESP 18; TEMP 36.4; O2SAT 96; BMI 25.0
--- NOTE | 2024-01-08 15:41 | EKG12_ITS ---
Test Reason : PALPS Blood Pressure : / mmHG Vent. Rate : 056 BPM Atrial Rate : 056 BPM P-R Int : 208 ms QRS Dur : 098 ms QT Int : 434 ms P-R-T Axes : 040 007 019 degrees QTc Int : 418 ms Sinus bradycardia Otherwise normal ECG Confirmed by JEFF GO, SARA ([id number]), market editor ALYSSA GARCIA ([id number]) on 01/13/2024 6:49:35 AM Referred By: ELSI/JAVIER Confirmed By:YOLI AGUILAR MD
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
--- NOTE | 2024-01-08 15:55 | RAD_ITS ---
INDICATION: chest pain EXAMINATION/TECHNIQUE: X-RAY - XR Chest 2 Views COMPARISON: Prior study dated: 314 FINDINGS: LINES/DEVICES: None. LUNGS: No consolidation, edema or effusion. No pneumothorax. MEDIASTINUM AND CARDIOVASCULAR STRUCTURES: Normal cardiac silhouette. Status post median sternotomy. BONES AND SOFT TISSUES: Metallic densities are again seen overlying the left lower chest and upper abdomen. Degenerative changes of the thoracic spine and both shoulders.. RAD/Chest PA and Lateral IMPRESSION: No radiographic evidence of acute cardiopulmonary disease. Electronically Signed: Rick Rodas MD at 16:29 EDT ,
[2024-01-08 16:00] LABS: Absolute Lymphocyte Count 2.54 X10^3/uL (0.83-4.51); Absolute Neutrophil Count 5.2 X10^3/uL (2.0-7.7); Basophil# 0.07 X10^3/uL; Basophil% 0.8 % (0-1); Eosinophil# 0.26 X10^3/uL; Eosinophils% 2.9 % (0-5); Hematocrit 43.8 % (40-54); Hemoglobin 14.4 g/dL (13.0-16.5); Lymphocyte # 2.54 X10^3/ul (0.83-4.51); Lymphocyte % 28.4 % (19-41); Mean Corp Hgb Conc 32.9 g/dL (32-36); Mean Corpuscular Hgb 30.4 pg (27.0-32.0); Mean Corpuscular Volume 92.4 fL (80-94); Mean Platelet Vol. 9.5 fl (6.2-12.0); Monocyte# 0.86 X10^3/uL; Monocyte% 9.6 % (0-10); NRBC Flagged by Analyzer 0 % (0-5); Neutrophil # 5.16 X10^3/uL (2.7-7.7); Neutrophil % 57.7 % (47-70); Platelet Count 244 K/mm3 (150-450); RBC Distribution Width CV 12.5 % (11.6-14.6); RBC Distribution Width SD 42.3 fl (35.1-43.9); Red Blood Count 4.74 M/mm3 (4.6-6.2); White Blood Count 8.9 K/mm3 (4.4-11.0)
[2024-01-08] MEDS: 0.9% Normal Saline (1000mL) 1,000 ML 999 ML IV (16:06)
[2024-01-08 16:30] LABS: Anion Gap 6 (5-15); BUN 22 mg/dL (7-18); BUN/Creat Ratio 21.2 RATIO (10-20); Calcium,Total 9.3 mg/dL (8.5-10.1); Chloride 106 mmol/L (98-107); Creatinine, Serum 1.04 mg/dL (0.70-1.30); EST Glomerular Filtration Rate 73 mL/min (>60); Est Glom Filt Rate - Afr Amer 89 mL/min (>60); Estimated Creatinine Clearance 60.44 ml/min; Glucose 142 mg/dL (74-106); Magnesium 2.2 mg/dL (1.6-2.6); Potassium 3.8 mmol/L (3.5-5.1); Sodium Level 138 mmol/L (136-145); Troponin-I HS (w/2H Reflex) 5 pg/mL (3.0-78.0)
[2024-01-08 16:31] VITALS: BP 139/80; PULSE 59; RESP 13; O2SAT 97
[2024-01-08 17:28] LABS: BNP,B-Type NATRIURETIC PEPTIDE 58.1 pg/mL (0-100)
[2024-01-08 17:49] LABS: Reflex Troponin-HS? (from REC) Y
[2024-01-08 18:00] VITALS: BP 149/75; PULSE 59; RESP 18; O2SAT 97
[2024-01-08 18:07] LABS: Troponin-I HS 5 pg/mL (3.0-78.0)
[2024-01-08 18:32] VITALS: BP 149/75; PULSE 58; RESP 20; TEMP 36.1; O2SAT 97
== END 2024-01-08 18:48 | disposition home or self-care (01) ==
PROVIDERS: Emergency Provider Emergency Medicine; PCP Student in an Organized Health Care Education/Training Program; Visit Provider Emergency Medicine
DX: R00.2 Palpitations (principal); R53.83 Other fatigue; E78.5 Hyperlipidemia, unspecified; I10 Essential (primary) hypertension; R42 Dizziness and giddiness; I25.10 Atherosclerotic heart disease of native coronary artery without angina pectoris; Z87.891 Personal history of nicotine dependence; M10.9 Gout, unspecified; Z79.899 Other long term (current) drug therapy; Z79.82 Long term (current) use of aspirin; Z90.49 Acquired absence of other specified parts of digestive tract
CPT/HCPCS: 71046; 80048; 83735; 83880; 84443; 84484; 85025; 93005; 96360; 99284; J7030

== ENCOUNTER → 2024-04-12 | Outpatient (CLI) | payer MEDICARE, OTHER, SELFPAY ==
[2024-04-12 11:54] LABS: PSA,Total- Diagnostic < 0.01 ng/mL (0.0-4.0)
== END | disposition home or self-care (01) ==
LOC: LAB 10:11
PROVIDERS: PCP Student in an Organized Health Care Education/Training Program; Referring Provider Urology; Visit Provider Urology
DX: C61 Malignant neoplasm of prostate (principal)
CPT/HCPCS: 36415; 84153

== ENCOUNTER → 2024-07-12 | Outpatient (CLI) | payer MEDICARE, OTHER, SELFPAY ==
[2024-07-12 09:52] LABS: PSA,Total- Diagnostic < 0.01 ng/mL (0.0-4.0)
== END | disposition home or self-care (01) ==
LOC: LAB 08:32
PROVIDERS: PCP Student in an Organized Health Care Education/Training Program; Referring Provider Nurse Practitioner; Visit Provider Nurse Practitioner
DX: C61 Malignant neoplasm of prostate (principal)
CPT/HCPCS: 36415; 84153

== ENCOUNTER → 2024-08-08 | Outpatient (CLI) | payer MEDICARE, OTHER, SELFPAY ==
[2024-08-08 09:54] LABS: EXAGEN MAILED SPECIMEN
[2024-08-08 10:20] LABS: Absolute Neutrophil Count 7.3 X10^3/uL (2.0-7.7); Basophil# 0.08 X10^3/uL; Basophil% 0.7 % (0-1); Eosinophil# 0.19 X10^3/uL; Eosinophils% 1.6 % (0-5); Hematocrit 45.9 % (40-54); Hemoglobin 15.7 g/dL (13.0-16.5); Lymphocyte % 25.8 % (19-41); Mean Corp Hgb Conc 34.2 g/dL (32-36); Mean Corpuscular Hgb 31.2 pg (27.0-32.0); Mean Corpuscular Volume 91.3 fL (80-94); Mean Platelet Vol. 9.2 fl (6.2-12.0); Monocyte# 1.03 X10^3/uL; Monocyte% 8.9 % (0-10); NRBC Flagged by Analyzer 0 % (0-5); Neutrophil # 7.28 X10^3/uL (2.7-7.7); Neutrophil % 62.6 % (47-70); Platelet Count 296 K/mm3 (150-450); RBC Distribution Width CV 12.6 % (11.6-14.6); RBC Distribution Width SD 41.1 fl (35.1-43.9); Red Blood Count 5.03 M/mm3 (4.6-6.2); White Blood Count 11.6 K/mm3 (4.4-11.0)
[2024-08-08 10:45] LABS: Color, Urine Yellow (Yellow); Glucose, Dipstick Normal (Normal); Ketone-Dipstick Negative (Negative); Leukocyte Esterase-Dipstick 25 /ul (Negative); Nitrite-Dipstick Negative (Negative); Occult Blood-Urine Negative /ul (Negative); Protein-Dipstick 15 mg/dl (Negative); Urine Bilirubin Dipstick Negative (Negative); Urine Clarity Clear (Clear); Urine Urobilinogen 1 mg/dl (Normal)
[2024-08-08 11:40] LABS: ALB/GLOB Ratio 1.5 RATIO (0.9-2.4); AST(SGOT) 19 U/L (<=37); Alanine Aminotransfer ALT/SGPT 18 U/L (<=46); Albumin, Serum 4.4 g/dL (3.4-4.8); Alkaline Phosphatase 97 U/L (40-129); Anion Gap 11 (5-15); BUN 18 mg/dL (4-19); BUN/Creat Ratio 17.7 RATIO (10-20); Calcium,Total 9.6 mg/dL (7.6-11.0); Carbon Dioxide 24.9 mmol/L (21.0-32.0); Chloride 101 mmol/L (98-108); Creatinine, Serum 1.04 mg/dL (0.70-1.20); EST Glomerular Filtration Rate 73 (>60); Globulin 2.9 g/dL (2.2-4.2); Glucose 89 mg/dL (70-99); Protein, Total 7.3 g/dL (5.9-8.4); Sodium Level 137 mmol/L (133-145); Total Bilirubin 1.07 mg/dL (0.00-1.30)
[2024-08-08 12:05] LABS: Hepatitis B Surface Antibody Nonreactive; Hepatitis B Surface Antigen Nonreactive (Nonreactive); Hepatitis C Antibody Nonreactive (Nonreactive)
[2024-08-08 18:29] LABS: Protein, Urine (Random) 15.1 mg/dL (0.0-12.0)
[2024-08-08 18:59] LABS: Protein:Creat Ratio 74 mg/g CRE (0-200)
== END | disposition home or self-care (01) ==
LOC: MTLAB 08:50
PROVIDERS: PCP Student in an Organized Health Care Education/Training Program; Referring Provider Internal Medicine Rheumatology; Visit Provider Internal Medicine Rheumatology
DX: M06.4 Inflammatory polyarthropathy (principal); R76.8 Other specified abnormal immunological findings in serum; Z87.39 Personal history of other diseases of the musculoskeletal system and connective tissue
CPT/HCPCS: 36415; 80053; 81002; 82570; 84156; 85025; 86706; 86803; 87340

== ENCOUNTER → 2024-10-12 | Outpatient (CLI) | payer MEDICARE, OTHER, SELFPAY ==
[2024-10-12 12:36] LABS: AST(SGOT) 23 U/L (<=37); Alanine Aminotransfer ALT/SGPT 15 U/L (<=46); Albumin, Serum 4.2 g/dL (3.4-4.8); Alkaline Phosphatase 87 U/L (40-129); Bilirubin, Direct 0.58 mg/dL (0.00-0.30); Cholesterol 95 mg/dL (<=200); Globulin 2.6 g/dL (2.2-4.2); High Density Lipoprotein 34 mg/dL; Low Density Lipoprotein Calc. 49 mg/dL; Protein, Total 6.8 g/dL (5.9-8.4); Triglycerides 58 mg/dL; Very Low Density Lipoprotein 12 mg/dL (5-40); cholesterol:hdl ratio screen 2.78
== END | disposition home or self-care (01) ==
LOC: LAB 10:41
PROVIDERS: PCP Student in an Organized Health Care Education/Training Program; Referring Provider Student in an Organized Health Care Education/Training Program; Visit Provider Student in an Organized Health Care Education/Training Program
DX: E78.00 Pure hypercholesterolemia, unspecified (principal)
CPT/HCPCS: 36415; 80061; 80076

== ENCOUNTER → 2024-11-09 | Outpatient (CLI) | payer MEDICARE, OTHER, SELFPAY ==
--- OUTSIDE RECORDS SUMMARY | 2024-11-09 06:11 | XMS RPT_ITS | CCD ---
Author Organization [facility] Care Team Providers Care Event Decorator And Designer Name Role Phone Laurence Rios Unavailable ALEXANDRO WILKES Unavailable Unavailable ALEXANDRO WILKES Unavailable Unavailable ALEXANDRO WILKES Unavailable Unavailable Kathy Sifuentes Unavailable Cathy Dallas Unavailable Rachael Seymour Unavailable Trini Regan Unavailable Lois Greenwood Unavailable Barby Parham Unavailable Unavailable Warren Rios Unavailable Unavailable Marleen Fountain Unavailable Unavailable Unavailable Unavailable Cathy Dallas Attending Unavailable Lois Greenwood Referring Unavailable Cathy Dallas Consulting Unavailable Yumiko Abreu Trini Unavailable Alexandro Wilkes Unavailable Jessica Rosas Unavailable Unavailable JHONATAN MERINO DO Primary Care Physician Unavailable Primary Care Provider UnavailCATHY Harrison Primary Care Unavailable IVETT ALFREDO Attending Unavailable Dr. Jhonatan Merino Primary Care Provider Dr. Jhonatan Merino Referring Provider Edward HOT WALKER, HOT WALKER-C Jessica Attending Provider ERVIN Garduno Attending Provider ERVIN Garduno Other Provider Juni HOT WALKER, HOT WALKER-C Ivett Referring Provider HALKO DO, JHONATAN Attending Unavailable HALKO DO, JHONATAN Primary Care Unavailable HALKO DO, JHONATAN Attending Unavailable HALKO DO, JHONATAN Primary Care Unavailable HALKO DO, JHONATAN Attending Unavailable HALKO DO, JHONATAN Primary Care Unavailable HALKO DO, JHONATAN Attending Unavailable HALKO DO, JHONATAN Primary Care Unavailable HALKO DO, JHONATAN Attending Unavailable HALKO DO, JHONATAN Primary Care Unavailable JENNIFER WALDRON MD Attending Unavailable HALKO DO, JHONATAN Primary Care Unavailable Halko DO, Dr. Fleming Primary Care Provider [phone] Beardsley, Carissa Attending Provider [phone] Beardsley, Carissa Referring Provider [phone] Dawn GO, Dr. Cano Attending Provider Dawn GO, Dr. Cano Referring Provider Wibler PARIKH, Dr. Fleming Referring Provider [phone] Vasquez Dewitt Attending Provider Vasquez Dewitt Referring Provider [phone] HALKO DO, JHONATAN Attending Unavailable HALKO DO, JHONATAN Primary Care Unavailable HALKO DO, JHONATAN Attending Unavailable HALKO DO, JHONATAN Primary Care Unavailable Demiter, Vasquez Attending Unavailable Halko, Jhonatan Referring Unavailable Halko, Jhonatan Primary Care Unavailable Elvia HOT WALKER, Rasta Handley Attending Unavailable Halko, Jhonatan Primary Care Unavailable Halko, Jhonatan Referring Unavailable Halko, Jhonatan Primary Care Unavailable Beardsley, Carissa Attending Unavailable Beardsley, Carissa Referring Unavailable Halko, Jhonatan Primary Care Unavailable Kev Cervantes Attending Unavailable Demiter, Vasquez Attending Unavailable Demiter, Vasquez Referring Unavailable Halko, Jhonatan Primary Care Unavailable Halko, Jhonatan Primary Care Unavailable Vellanki, Rachael Attending Unavailable Vellanki, Rachael Referring Unavailable Demiter, Vasquez Attending Unavailable Demiter, Vasquez Referring Unavailable Halko, Jhonatan Primary Care Unavailable Ashvin, Segun Referring Unavailable Halko, Jhonatan Primary Care Unavailable AshvinLouis Admitting Unavailable Ashvin, Louis Leiva Attending Unavailable Halko, Jhonatan Primary Care Unavailable Ashvin, Segun Attending Unavailable Ashvin, Segun Referring Unavailable Allergies Allergy Classification Reported Allergen(s) Allergy Type Date of Onset Reaction(s) Facility (20 sources) iodine; Translations: [IODINE] Drug Allergy 006 Other [facility] Work Phone: Comment on above: pass out LIQUID IODINE (1 source) simvastatin Drug Allergy 011 Myalgias [facility] Work Phone: (2 sources) HCTZ drug allergy 013 Not an allergy but contributes to gout [facility] Work Phone: (18 sources) Iodinated Contrast; Translations: [Iodinated Contrast] allergy to substance [facility] Work Phone: (1 source) allergy to substance [facility] Work Phone: Comment on above: pass out (1 source) allergy to substance [facility] Work Phone: Comment on above: pass out (1 source) allergy to substance [facility] Work Phone: Comment on above: pass out (1 source) allergy to substance [facility] Work Phone: Comment on above: pass out (8 sources) Simvastatin Drug Allergy 021 Myalgias [facility] (7 sources) hydroCHLOROthiazide Drug Allergy 023 Other [facility] Comment on above: Not an allergy but c ontributes to gout (1 source) hydroCHLOROthiazide Drug Allergy 025 [facility] (1 source) Simvastatin Drug Allergy 025 [facility] Medications Current Medications Medication Drug Class(es) Dates Sig (Normalized) Sig (Original) Acetaminophen (12 sources) Start: 11-02-2022 acetaminophen 0 Refill(s) Start Date: 11/02/22 Status: Ordered Repeat number: 1 Start: 11-02-2022 acetaminophen 0 Refill(s) Start Date: 11/02/22 Status: Ordered Start: 12-01-2021 End: 10-27-2023 take 2 tablets by mouth twice daily Acetaminophen 500 mg tablet Discontinued 1000 mg PO TWICE A DAY December 01, 2021 12:00am October 27, 2023 8:28am Start: 12-01-2021 take 1000 mg by mout h twice daily Acetaminophen Active 1000 MG PO TWICE A DAY December 01, 2021 12:00am allopurinol 300 mg oral tablet (20 sources) Xanthine Oxidase Inhibitor Start: 10-12-2023 End: 09-30-2024 allopurinol 300 mg oral tablet Dose : 300 mg = 1 tab(s), Oral, qDay, # 90 tab(s), 1 Refill(s), Pharmacy: [facility], 179, cm, 04/03/24 8:16:00 EST, Height, kg, 04/03/24 8:16:00 EST, Dosing Weight Start Date: 04/03/24 Stop Date: 09/30/24 Status: Ordered Quantity: 90.0 Unit: tab(s) Repeat number: 2 Start: 08-19-2022 End: 08-23-2023 allopurinol 300 mg oral tabl et Dose : 300 mg = 1 tab(s), Oral, qDay, # 90 tab(s), 1 Refill(s), Pharmacy: [facility], 179, cm, 01/10/23 16:35:00 EDT, Height, kg, 01/10/23 16:35:00 EDT, Dosing Weight Start Date: 02/24/23 Stop Date: 08/23/23 Status: Ordered Start: 05-26-2021 End: 05-23-2022 allopurinol 300 mg oral tabl et Dose : 300 mg = 1 tab(s), Oral, qDay, # 90 tab(s), 1 Refill(s), Pharmacy: [facility], 179, cm, 11/24/21 10:53:00 EDT, Height, kg, 11/24/21 10:53:00 EDT, Dosing Weight Start Date: 11/24/21 Stop Date: 05/23/22 Status: Ordered Start: 02-28-2019 take 1 tablet by sharmin once daily Allopurinol 300 MG Oral Tablet 1 Tablet daily for 30 days Quantity: 60 {Tablet} Refills: 11 Ordered: 28-Feb-2019 Cathy Dallas CNP, CNP, Mary E Start : 28-Feb-2019 Active Start: 02-27-2018 take 2 tablets by mo [facility] once daily Allopurinol 100 MG Oral Tablet 2 (two) Tablet daily for 30 days Quantity: 60 {Tablet} Refills: 11 Ordered: 27-Feb-2018 Cathy Dallas CNP, CNP, Mary E Start : 27-Feb-2018 Active Start: 06-01-2013 End: 09-10-2016 take 1 tablet by mouth once daily Allopurinol 300 MG tablet Active 300 mg PO DAILY March 25, 2014 1:00am Start: 06-01-2013 take 1 tablet by sharmin th once daily ALLOPURINOL 100 MG TABS One tablet by mouth daily ALLOPURINOL [id number] Kael Kline MD Start: 05-30-2012 End: 11-28-2012 take 1 tablet by mouth once daily ALLOPURINOL 100 MG TABS One tablet by mouth daily ALLOPURINOL [id number] Kael Kline MD Alpha Lipoic Acid 600 mg oral capsule (6 sources) Start: 10-13-2020 take 1 capsule by mouth once daily Alpha Lipoic Acid 600 mg oral capsule See Instructions, 1 cap(s) Oral qDay, 0 Refill(s) Start Date: 10/13/20 Status: Ordered amitriptyline hydrochloride 25 mg oral tablet (1 source) Tricyclic Antidepressant Start: 03-15-2023 amitriptyline 25 mg oral tablet Dose : 25 mg = 1 tab(s), Oral, qHS, # 30 tab(s), 0 Refill(s), Pharmacy: [facility], 179, cm, 03/15/23 8:55:00 EDT, Height, kg, 03/15/23 8:55:00 EDT, Dosing Weight Start Date: 03/15/23 Status: Ordered amLODIPine 5 mg oral tablet (6 sources) Dihydropyridine Calcium Channel Jose Start: 11-01-2023 End: 09-30-2024 take 1 tablet by mouth once daily Amlodipine 5 mg tablet Active 5 mg PO DAILY November 01, 2023 12:00am Start: 10-07-2016 End: 04-19-2017 take 1 tablet by mouth once daily NORVASC 5 MG TABS One half tablet by mouth daily AMLODIPINE BESYLATE [id number] Kael Kline MD aspirin 81 mg chewable tablet (20 sources) Nonsteroidal Anti-inflammatory Drug Start: 06-02-2018 take 1 tablet by mouth once daily Aspirin 81 mg tablet,chewable Active 81 mg PO DAILY@0800 Rae 11th, 2019 3:31pm Start: 08-14-2016 aspirin Dose : 81 mg =, 0 Refill(s) Start Date: 08/14/16 Status: Ordered Repeat number: 1 Start: 08-14-2016 aspirin Dose : 81 mg =, 0 Refill(s) Start Date: 08/14/16 Status: Ordered Start: 03-25-2014 End: 06-02-2018 take 2 tablets by mouth once daily Aspirin 81 MG tablet,chewable Discontinued 162 mg PO DAILY@799March 25, 2014 1:00am June 02, 2018 3:31pm Start: 03-25-2014 End: 06-02-2018 take 162 mg by mouth once daily Aspirin Discontinued 1 62 MG PO DAILY@799March 25, 2014 1:00am June 02, 2018 3:31pm Start: 06-01-2013 take 1 tablet by sharmin th once daily Aspirin EC Low Dose 81 MG Oral Tablet Delayed Release 1 (one) Tablet DR daily for 30 days Quantity: 30 {Tablet} Refills: 0 Ordered: 12-Dec-2015 Cathy Dallas CNP, CNP Cathy Draper Start : 12-Dec-2015 Active Start: 09-30-2011 take 1 tablet by sharmin th twice daily ASPIRIN 81 MG TABS One tablet by mouth twice daily ASPIRIN [id number] Kael Kline MD Start: 09-29-2010 take 1 tablet by sharmin th once daily ASPIRIN 81 MG TABS One tablet by mouth daily ASPIRIN [id number] Keal Kline MD Comment on above: Take 81 mg by mouth once daily. Blood Glucose Test Machine (2 sources) Start: 12-21-2023 Blood Glucose Test Machine See Instructions, dispense glucometer and supplies; check blood sugar twice daily for low blood sugar symptoms, dx E16.2, # 1 EA, 0 Refill(s), Pharmacy: [facility], Hypoglycemia, 179, cm, 12/21/23 13:30:00 EDT, Height, 79, kg, 12/21/23 13:30:00 EDT, Dosing Weight Start Date: 12/21/23 Status: Ordered Quantity: 1.0 Unit: EA Repeat number: 1 Indication: Hypoglycemia, unspecified Start: 12-21-2023 Blood Glucose Test Machine See Instructions, dispense glucometer and supplies; check blood sugar twice daily for low blood sugar symptoms, dx E16.2, # 1 EA, 0 Refill(s), Pharmacy: [facility], Hypoglycemia, 179, cm, 12/21/23 13:30:00 EDT, Height, 79, kg, 12/21/23 13:30:00 EDT, Dosing Weight Start Date: 12/21/23 Status: Ordered docusate sodium 100 mg oral capsule (4 sources) Start: 11-16-2023 End: 04-16-2024 take 1 capsule by mouth twice daily as needed Docusate Sodium (Colace) 100 mg capsule Active 100 mg PO TWICE A DAY as needed April 16, 2024 10:13am ferrous sulfate 325 mg delayed release oral tablet (3 sources) Start: 01-04-2023 ferrous sulfate 325 mg (65 mg elemental iron) oral delayed release tablet Dose : 325 mg = 1 tab(s), Oral, qDay, # 90 tab(s), 3 Refill(s), Pharmacy: [facility], 179, cm, 01/04/23 13:01:00 EDT, Height, kg, 01/04/23 13:01:00 EDT, Dosing Weight Start Date: 01/04/23 Status: Ordered hydroxychloroquine sulfate 200 mg oral tablet (1 source) Antimalarial, Antirheumatic Agent Start: 10-12-2024 take 1 tablet by mouth twice daily Hydroxychloroquine 200 mg tablet Active 200 mg PO TWICE A DAY October 12, 2024 12:00am Mecobalamin (Vitamin B12) 1,000 mcg lozenge (1 source) Start: 10-12-2024 take 1000 ug by mouth once daily Mecobalamin (Vitamin B12) 1,000 mcg lozenge Active 1000 ug PO daily October 12, 2024 12:00am allow to dissolve in mouth OR may chew lightly before swallowing zolpidem tartrate 10 mg oral tablet (19 sources) gamma-Aminobutyri c Acid-ergic Agonist Start: 12-21-2023 End: 01-20-2024 zolpidem 10 mg oral tablet Dose : 10 mg = 1 tab(s), Oral, qHS, PRN as needed for sleep, fill on or after 12/21/2023 start 0.5 tablet at night x3 nights, then increase to full tablet at night, X 30 day(s), # 30 tab(s), 0 Refill(s), 01/20/24 2:00:00 PM EDT, Pharmacy: [facility], Insomnia, 179, cm, 12/21/23 13:30:00 EDT, Height, 79, kg, 12/21/23 13:30:00 EDT, Dosing Weight Start Date: 12/21/23 Stop Date: 01/20/24 Status: Ordered Start: 09-13-2014 End: 10-01-2014 AMBIEN, 10MG (Oral Tablet) 1 (one) Tablet at night for 0 days Quantity: 30 {Tablet} Refills: 3 Ordered: 01-Oct-2014 Barby Parham LPN Start : 13-Sep-2014 End : 01-Oct-2014 Inactive Comments: thirty Comment on above: thirty Completed/Discontinued Medications Medication Drug Class(es) Dates Sig (Normalized) Sig (Original) atenolol 25 mg oral tablet (20 sources) beta-Adrenergic Jose Start: 10-27-2023 End: 04-16-2024 take 1 tablet by mouth once daily Atenolol 25 mg tablet Discontinued 25 mg PO daily October 27, 2023 8:51am April 16, 2024 10:11am Start: 03-25-2014 End: 10-19-2017 take 2 tablets by mouth once daily Atenolol 25 MG tablet Discontinued 50 mg PO DAILY March 25, 2014 1:00am October 19, 2017 4:15pm Start: 03-25-2014 End: 10-19-2017 take 50 mg by mouth once daily Atenolol Discontinued 5 0 MG PO DAILY March 25, 2014 1:00am October 19, 2017 4:15pm Start: 09-21-2010 End: 04-09-2024 take 1 tablet by mouth once daily Atenolol 50 mg tablet Discontinued 50 mg PO daily May 13, 2021 11:32am December 01, 2021 4:18pm Comment on above: Take 50 mg by mouth once daily. atorvastatin 10 mg oral tablet (20 sources) HMG-CoA Reductase Inhibitor Start: 8 End: take 1 tablet by mouth once daily Atorvastatin 10 mg tablet Discontinued 10 mg PO daily March 23, 2021 3:41pm December 01, 2021 4:18pm Start: 04-19-2017 take 1 tablet by sharmin once daily LIPITOR 10 MG TABS One tablet by mouth daily ATORVASTATIN CALCIUM [id number] Kael Kline MD Comment on above: per cardio calcium ascorbate 500 mg oral tablet (3 sources) Start: End: take 1 tablet by mouth once daily Ascorbate Calcium (Vitamin C) 500 mg tablet Discontinued 500 mg PO DAILY April 28, 2023 1:00am October 27, 2023 8:28am calcium carbonate 1500 mg / cholecalciferol 0.01 mg oral tablet (1 source) Vitamin D Start: End: take 1 tablet by mouth twice daily calcium (as carbonate)-vitamin D 600 mg-10 mcg (400 intl units) oral tablet Dose = 1 tab(s), Oral, BID, # 180 tab(s), 1 Refill(s), Pharmacy: [facility], 179, cm, 05/24/23 10:32:00 EST, Height, kg, 05/24/23 10:32:00 EST, Dosing Weight Start Date: 05/24/23 Stop Date: 11/20/23 Status: Ordered cefadroxil 500 mg oral capsule (18 sources) Cephalosporin Antibacterial Start: End: take 1 capsule by mouth twice daily Cefadroxil 500 MG Oral Capsule 1 (one) Capsule Capsule bid for 7 days Quantity: 14 {Capsule} Refills: 0 Ordered: 04-May-2016 Britney Warner Start : 04-May-2016 End : 11-May-2016 Inactive cholecalciferol, vitamin D3, (VITAMIN D3 ORAL) (2 sources) cholecalciferol, vitamin D3, (VITAMIN D3 ORAL) Take by mouth. 0 Active Comment on above: Take by mouth. ciprofloxacin 500 mg oral tablet (2 sources) Quinolone Antimicrobial Start: End: take 1 tablet by mouth twice daily Ciprofloxacin Hcl (Cipro) 500 mg tablet Discontinued 500 mg PO TWICE A DAY November 16, 2023 12:00am January 08, 2024 4:43pm colchicine 0.6 mg oral tablet (20 sources) Start: 013 End: 013 COLCRYS, 0.6MG (Oral Tablet) 1 Tablet take 2 now then 1 1 hr later repeat one tablet in another hr if needed for 0 days Quantity: 12 {Tablet} Refills: 0 Ordered: 06-Feb-2013 Kev EDITHMarilyn Start : 02-Oct-2012 End : 06-Feb-2013 Inactive Comments: twelve Start: 09-21-2010 End: 02-11-2011 take 1 tablet by mouth once as needed COLCHICINE, 0.6MG (Oral Tablet) 1 Tablet as needed for 0 days Quantity: 30 {Tablet} Refills: 0 Ordered: 11-Feb-2011 OMAR Triana Start : 21-Sep-2010 End : 11-Feb-2011 Discontinued Comments: Medication taken as needed. This order discontinued per [facility]. Start: 05-10-2008 End: 05-30-2012 take 1 tablet by mouth twice daily as needed COLCHICINE, 0.6MG (Oral Tablet) 1 (one) Tablet BID prn for 0 days Quantity: 10 {Tablet} Refills: 0 Ordered: 10-May-2008 OMAR Triana Start : 10-May-2008 End : 11-Feb-2011 Discontinued Comments: This order discontinued per [facility]. Comment on above: This order discontin ued per [facility]. twelve Medication taken as needed. This order discontinued per [facility]. Doxylamine (2 sources) take 2 tablets by mouth at bedtime as needed DOXYLAMINE SUCCINATE (SLEEP AID ORAL) Take 2 tablets by mouth at bedtime as needed. 0 Active Comment on above: Take 2 tablets by mo [facility] at bedtime as needed. DULoxetine 20 mg delayed release oral capsule (8 sources) Serotonin and Norepinephrine Reuptake Inhibitor Start: 11-21-19 End: 12-02-19 22 take 1 capsule by mouth twice daily Duloxetine 20 mg capsule,delayed release(DR/EC) Discontinued 20 mg PO TWICE A DAY November 20, 2020 12:00am December 01, 2021 3:32pm febuxostat 80 mg oral tablet (20 sources) Xanthine Oxidase Inhibitor Start: 08-25-19 End: 08-31-19 18 take 1 tablet by mouth once daily Uloric 80 MG Oral Tablet 1 (one) Tablet Tablet daily for 0 days Quantity: 42 {Tablet} Refills: 0 Ordered: 30-Aug-2017 Barby Parham LPN Start : 24-Aug-2016 End : 30-Aug-2017 Inactive Start: 04-11-2012 End: 04-11-2012 take 1 tablet by mouth once daily ULORIC, 40MG (Oral Tablet) 1 Tablet daily for 0 days Quantity: 30 {Tablet} Refills: 3 Ordered: 11-Apr-2012 Rissa BENCH SCIENTIST, Shannon Cicarrie BENCH SCIENTIST, Shannon Start : 11-Apr-2012 End : 11-Apr-2012 Inactive fish oil (2 sources) Start: 09-29-2010 End: 06-01-2013 take 1 tablet by mouth once daily FISH OIL CAPS One tablet by mouth daily OMEGA-3 FATTY ACIDS CAPS [id number] Kael Kline MD Start: 09-29-2010 take 1 tablet by sharmin once daily FISH OIL CAPS One tablet by mouth daily OMEGA-3 FATTY ACIDS CAPS [id number] Venessa Hays gabapentin 300 mg oral capsule (7 sources) Anti-epileptic Agent Start: 04-28-2023 End: 10-27-2023 take 1 capsule by mouth at bedtime Gabapentin 300 mg capsule Discontinued 300 mg PO AT BEDTIME April 28, 2023 1:00am October 27, 2023 8:28am Start: 02-14-2019 take 1 capsule by mo [facility] once daily at bedtime Gabapentin 400 MG Oral Capsule 1 (one) Capsule qhs for 0 days Quantity: 30 {Capsule} Refills: 1 Ordered: 14-Feb-2019 Jessica Rosas LPN Start : 14-Feb-2019 Active Comments: oarrs run peripheral neuropathy G62.9 Comment on above: oarrs run peripheral neuropathy G62.9 hydroCHLOROthiazide 25 mg oral tablet (20 sources) Thiazide Diuretic Start: 2017 End: 2018 take 1 tablet by mouth once daily Hydrochlorothiazide 25 mg tablet Discontinued 25 mg PO daily December 01, 2017 10:28am June 02, 2018 3:33pm Start: 06-08-2005 End: 10-07-2016 take 1 tablet by mouth once daily HYDROCHLOROTHIAZIDE 25 MG TABS One tablet by mouth daily HYDROCHLOROTHIAZIDE [id number] Kael Kline MD Comment on above: Take one(1) tablet d aily. indomethacin 25 mg oral capsule (18 sources) Nonsteroidal Anti-inflammatory Drug Start: 02-28-20 18 End: 03-04-20 18 take 1 capsule by mouth three times daily at mealtime Indomethacin 25 MG Oral Capsule 1 (one) Capsule tid for 5 days Quantity: 15 {Capsule} Refills: 0 Ordered: 27-Feb-2018 Rissa SAM, Shannon Rissa SAM, Cathy Draper Start : 27-Feb-2018 End : 04-Mar-2018 Inactive Comments: with food Comment on above: with food LORazepam 1 mg oral tablet (20 sources) Benzodiazepine Start: 09-30-19 11 End: 10-20-19 18 take 1 tablet by mouth at bedtime Lorazepam 1 MG tablet Discontinued 1 mg PO AT BEDTIME March 25, 2014 1:00am October 19, 2017 4:15pm Comment on above: fourteen losartan potassium 100 mg oral tablet (20 sources) Angiotensin 2 Receptor Jose Start: 01-31-20 13 End: 10-01-19 25 take 1 tablet by mouth once daily Losartan 100 mg tablet Discontinued 100 mg PO DAILY April 29, 2023 3:07pm April 16, 2024 10:43am Start: 09-29-2010 End: 12-06-2017 take 1 tablet by mouth once daily Losartan 50 mg tablet Discontinued 50 mg PO DAILY December 01, 2017 1:37pm December 06, 2017 2:21pm Comment on above: Take 100 mg by mouth once daily. Metanx 3-90.314-2-35 MG Oral Capsule (18 sources) Start: 016 End: 016 take 1 capsule by mouth once daily Metanx 3-90.314-2-35 MG Oral Capsule 1 (one) Capsule daily for 0 days Quantity: 30 {Capsule} Refills: 3 Ordered: 28-Jan-2016 Marleen Fountain LPN Start : 12-Jan-2016 End : 28-Jan-2016 Discontinued methylPREDNISolone 4 mg oral tablet (18 sources) Corticosteroid Start: 017 End: 017 Medrol 4 MG Oral Tablet Therapy Pack 1 (one) Tab Ther Pack tad for 0 days Quantity: 1 {Package} Refills: 0 Ordered: 10-Sep-2016 Marleen Fountain LPN Start : 24-Aug-2016 End : 10-Sep-2016 Discontinued 24 hr metoprolol succinate 25 mg extended release oral tablet (5 sources) beta-Adrenergic Jose Start: End: take 1 tablet by mouth once daily Metoprolol Succinate 25 mg tablet extended release 24 hr Discontinued 25 mg PO daily April 16, 2024 1:00am April 16, 2024 10:43am naproxen sodium 220 mg oral capsule (20 sources) Nonsteroidal Anti-inflammatory Drug Start: 018 take 1 capsule by mouth every six hours Aleve 220 MG Oral Capsule 1 (one) Capsule Capsule q6hr for 0 days Quantity: 30 {Capsule} Refills: 0 Ordered: 30-Aug-2017 Cathy Dallas CNP, CNP, Mary E Start : 30-Aug-2017 Active Start: 09-29-2010 End: 10-04-2014 take 1 tablet by mouth twice daily as needed NAPROXEN, 500MG (Oral Tablet) 1 Tablet two times daily prn for 0 days Quantity: 180 {Tablet} Refills: 0 Ordered: 08-Feb-2014 OMAR Triana Start : 20-Aug-2013 End : 08-Feb-2014 Inactive Comments: with food Comment on above: with food 24 hr niacin 500 mg extended release oral tablet (20 sources) Nicotinic Acid Start: 05-13-2011 End: 04-08-2015 take 1 tablet by mouth once daily at bedtime NIACIN 500 MG TABS One tablet by mouth daily at bedtime NIACIN [id number] Kael Kline MD Start: 09-29-2010 take 1 tablet by sharmin th once daily NIASPAN 500 MG CR-TABS One tablet by mouth daily NIACIN (ANTIHYPERLIPIDEMIC) [id number] Kael Kline MD Start: 09-21-2010 End: 10-19-2017 take 1 tablet by mouth once daily Niacin 500 MG tablet extended release 24 hr Discontinued 500 mg PO DAILY March 25, 2014 1:00am October 19, 2017 4:15pm nitroglycerin 0.4 mg sublingual tablet (10 sources) Nitrate Vasodilator Start: 10-10-2017 End: 12-20-2022 Nitroglycerin (Nitrostat) 0.4 mg tablet, sublingual Discontinued 0.4 mg SL Q5M October 10, 2017 12:00am December 20, 2022 12:51am Start: 10-10-2017 End: 12-20-2022 Nitroglycerin (Nitrostat) 0. 4 mg tablet, sublingual Discontinued 0.4 MG SL Q5M October 10, 2017 12:00am December 20, 2022 12:51am Start: 11-28-2012 NITROSTAT 0.4 MG SUBL 1 tablet under tongue every 5 min up to 3 X NITROGLYCERIN [id number] Kael Kline MD Start: 09-29-2010 NITROGLYCERIN 0.4 MG/HR PT24 1 tablet under tongue every 5 min up to 3 X NITROGLYCERIN [id number] Venessa Hays omega-3 acid ethyl esters (correction) 1000 mg oral capsule (18 sources) Start: 09-21-2010 End: 06-05-2013 take 1 capsule by mouth twice daily FISH OIL CONCENTRATE, 1000MG (Oral Capsule) 1 Capsule two times daily for 0 days Quantity: 180 {Capsule} Refills: 3 Ordered: 05-Jun-2013 OMAR Triana Start : 21-Sep-2010 End : 05-Jun-2013 Inactive oxyCODONE hydrochloride 5 mg oral tablet (2 sources) Opioid Agonist Start: 11-16-2023 End: 04-16-2024 take 1 tablet by mouth every six hours as needed for pain Oxycodone 5 mg tablet Discontinued 5 mg PO EVERY 6 HOURS as needed for pain 14 7 November 16, 2023 April 16, 2024 10:14am PARoxetine hydrochloride 20 mg oral tablet (20 sources) Serotonin Reuptake Inhibitor Start: 12-16-2015 End: 03-19-2016 take 1 tablet by mouth once daily PARoxetine HCl 20 MG Oral Tablet 1 (one) Tablet Tablet daily for 0 days Quantity: 30 {QS} Refills: 3 Ordered: 19-Mar-2016 Marleen Fountain LPN Start : 16-Dec-2015 End : 19-Mar-2016 Discontinued Start: 12-12-2015 End: 01-12-2016 take 1 tablet by mouth once daily at bedtime PARoxetine HCl ER 12.5 MG Oral Tablet Extended Release 24 Hour 1 (one) Tablet ER 24HR qhs for 0 days Quantity: 30 {Tablet} Refills: 0 Ordered: 12-Jan-2016 Marleen Fountain LPN Start : 12-Dec-2015 End : 12-Jan-2016 Discontinued Comments: or generic Paroxetine HCl I nactive Comment on above: or generic predniSONE 20 mg oral tablet (20 sources) Start: 08-24-2019 End: 12-17-2022 take 1 tablet by mouth once daily as needed Prednisone 20 mg tablet Discontinued 20 mg PO DAILY as needed March 25, 2020 4:53pm December 17, 2022 2:54pm Start: 08-24-2019 End: 03-25-2020 Prednisone 20 mg tablet Discontinued PO August 24, 2019 12:00am March 25, 2020 4:55pm Start: 05-02-2019 take 1 tablet by sharmin th once daily predniSONE 10 mg oral tablet See Instructions, tab(s) mg Oral qDay, 0 Refill(s) Start Date: 05/02/19 Status: Ordered Start: 06-02-2018 End: 08-24-2019 take 1 tablet by mouth once daily Prednisone 2.5 mg tablet Discontinued 2.5 mg PO DAILY June 02, 2018 1:00am August 24, 2019 1:48pm Start: 03-13-2018 End: 08-16-2018 take 1 tablet by mouth twice daily as needed, then take 1 tablet by mouth once daily as needed, then take 0.5 tablet by mouth as needed PredniSONE 20 MG Oral Tablet uad Tablet prn gout flare for 0 days Quantity: 30 {Tablet} Refills: 0 Ordered: 16-Aug-2018 aCthy Dallas CNP, CNP, Mary E Start : 13-Mar-2018 End : 16-Aug-2018 Inactive Comments: take one twice daily x 3 days then one daily x 3 days then 1/2 x 3 days for gout flare or bursitis with food Start: 02-17-2018 End: 08-16-2018 take 1 tablet by mouth at mealtime PredniSONE 10 MG (21) Oral Tablet Therapy Pack 1 (one) Milligram tad for 0 days Quantity: 1 {Package} Refills: 0 Ordered: 16-Aug-2018 Cathy Dallas CNP, CNP, Mary E Start : 17-Feb-2018 End : 16-Aug-2018 Inactive Comments: with food Start: 05-07-2016 End: 08-24-2016 PredniSONE 10 MG Oral Tablet 1 (one) Tablet 1 bid x 3 days, 1 daily x 3 days, 1/2 x3 days for 0 days Quantity: 11 {QS} Refills: 0 Ordered: 24-Aug-2016 Marleen Fountain LPN Start : 07-May-2016 End : 24-Aug-2016 Discontinued Comments: with food Comment on above: with food take one twice daily x 3 days then one daily x 3 days then 1/2 x 3 days for gout flare or bursitis with food probenecid 500 mg oral tablet (18 sources) Start: 05-24-2012 End: 02-06-2013 take 1 tablet by mouth once daily PROBENECID, 500MG (Oral Tablet) 1 Tablet daily for 0 days Quantity: 30 {Tablet} Refills: 3 Ordered: 06-Feb-2013 Marilyn Angulo LPN Start : 24-May-2012 End : 06-Feb-2013 Inactive sertraline 50 mg oral tablet (20 sources) Serotonin Reuptake Inhibitor Start: 01-10-2019 take 1 tablet by mouth once daily Sertraline HCl 50 MG Oral Tablet 1 (one) Tablet daily for 0 days Quantity: 30 {Tablet} Refills: 3 Ordered: 10-Jan-2019 Warren Rios Start : 10-Jan-2019 Active Start: 05-09-2014 End: 09-13-2014 take 1 tablet by mouth once daily, then take 1 tablet by mouth once daily ZOLOFT, 50MG (Oral Tablet) 1 (one) Tablet 1/2 a day for 2 weeks and 1 a day for 0 days Quantity: 30 {Tablet} Refills: 1 Ordered: 13-Sep-2014 OMAR Triana Start : 09-May-2014 End : 13-Sep-2014 Inactive simvastatin 10 mg oral tablet (20 sources) HMG-CoA Reductase Inhibitor Start: 06-01-2013 SIMVASTATIN 10 MG TA BS 2 tablets weekly SIMVASTATIN [id number] Kael Kline MD Start: 09-29-2010 End: 10-19-2017 take 1 tablet by mouth at bedtime Simvastatin 10 MG tablet Discontinued 10 mg PO AT BEDTIME March 25, 2014 1:00am October 19, 2017 4:15pm Start: 06-08-2005 End: 08-30-2017 ZOCOR 20 MG TAB Take one(1) tablet daily. 0 06/08/2005 Active Comment on above: Take one(1) tablet d aily. tamsulosin hydrochloride 0.4 mg oral capsule (8 sources) alpha-Adrenergic Jose Start: 0 End: 0 take 1 capsule by mouth every other day Tamsulosin 0.4 mg capsule Discontinued 0.4 mg PO .QOD August 24, 2019 12:00am March 25, 2020 4:55pm thioctic acid 600 mg oral capsule (9 sources) Start: 2 End: 3 take 2 capsules by mouth at bedtime Alpha Lipoic Acid 600 mg capsule Discontinued 1200 mg PO AT BEDTIME December 01, 2021 12:00am December 17, 2022 2:55pm Start: 12-01-2021 End: 12-17-2022 take 1200 mg by mouth at bedtime Alpha Lipoic Acid Discontinued 1200 MG PO AT BEDTIME December 01, 2021 12:00am December 17, 2022 2:55pm Start: 10-13-2020 take 1 capsule by [facility] once daily Alpha Lipoic Acid 600 mg oral capsule See Instructions, 1 cap(s) Oral qDay, 0 Refill(s) Start Date: 10/13/20 Status: Ordered triamcinolone acetonide 0.25 mg/ml topical cream (18 sources) Corticosteroid Start: 02-11-2011 End: 06-17-2011 TRIAMCINOLONE ACETONIDE, 0.025% (External Cream) 1 Cream bid for 0 days Quantity: 1 {Cream} Refills: 0 Ordered: 17-Jun-2011 OMAR Triana Start : 11-Feb-2011 End : 17-Jun-2011 Inactive Comments: smallest tube Comment on above: smallest tube vitamin b 12 2.5 mg sublingual tablet (18 sources) Vitamin B12 Start: 09-12-2015 End: 08-24-2016 take 1 tablet under the tongue once daily Cyanocobalamin 2500 MCG Sublingual Tablet Sublingual 1 (one) Tab Sublingual Tab Sublingual daily for 0 days Quantity: 30 {Tablet} Refills: 0 Ordered: 24-Aug-2016 Marleen Fountain LPN Start : 12-Sep-2015 End : 24-Aug-2016 Discontinued Problems Active Problems Problem Classification Problem Date Documented Da te Episodic/Chronic Abdominal pain (20 sources) Right upper quadrant pain; Translations: [Flank pain] 01-10-2019 Episodic Comment on above: has had gallbladder removed and ongoing pain Anxiety disorders (20 sources) Anxiety; Translations: [Anxiety] Resolved: 08-16-2018 02-24-2018 Chronic Comment on above: with worry and diffi culty sleeping, consider altering anxiety med will try paxil for the anxiety and PTSD with worry and diffi culty sleeping, consider altering anxiety med will try paxil for the anxiety and PTSD, this did not work ,will add sertraline Biliary tract disease (20 sources) Disorder of gallbladder; Translations: [Gallstone] Resolved: 02-08-2014 02-08-2014 Episodic Comment on above: cholecystectomy done Cancer of prostate (5 sources) Malignant tumor of prostate; Translations: [Malignant neoplasm of prostate] Onset: 07-26-2024 10-12-2023 Chronic Complication of device; implant or graft (1 source) Atherosclerosis of coronary artery bypass graft(s) without angina pectoris; Translations: [Atherosclerosis of coronary artery bypass graft(s) without angina pectoris] Onset: 09-29-2010 03-31-2016 Chronic Conditions associated with dizziness or vertigo (2 sources) Lightheadedness; Translations: [Dizziness and giddiness] 01-16-2024 Episodic Coronary atherosclerosis and other heart disease (20 sources) Atherosclerotic heart disease of [place] coronary artery without angina pectoris; Translations: [Coronary arteriosclerosis] Onset: 09-29-2010 Resolved: 10-07-2015 10-06-2016 Chronic Comment on above: CAB double bypass 96 , see Dr. kline, last stress test about 2008. still see cardio Coronary atherosclerosis and other heart disease (5 sources) Presence of aortocoronary bypass graft; Translations: [Aortocoronary bypass status] Onset: 05-23-1994 09-29-2010 Episodic Deficiency and other anemia (11 sources) Anemia; Translations: [Anemia, unspecified] 12-20-2022 Episodic Diabetes mellitus without complication (20 sources) Impaired fasting glucose; Translations: [Impaired fasting glycaemia] 02-24-2018 Episodic Comment on above: A1c 5.2 Diseases of white blood cells (20 sources) Leukocytosis; Translations: [Neutrophilia] 02-24-2018 Chronic Comment on above: monoclonal gammopath y, sees Katrin has had bone survey and labs he will repeat no need for bone marrow biopsy Disorders of lipid metabolism (20 sources) Hyperlipidemia; Translations: [Hypercholesterolemia ] Onset: 09-29-2010 09-29-2010 Chronic Comment on above: reveiwed with patien t recent tests trig up with sweet tea and beer. ldl not at goal not able to take zocor daily because of aches could consider repathea wtih CAD reveiwed with patien t recent tests trig up with sweet tea and beer. ldl not at goal not able to take zocor daily because of aches could consider repathea wtih CAD, on atorvastatin ON MED Essential hypertension (20 sources) Hypertensive disorder; Translations: [Benign hypertension] Onset: 09-29-2010 09-29-2010 Chronic Comment on above: on Losartan and aten olol sees Jen CONTROLLED WITH MEDS Gout and other crystal arthropathies (20 sources) Gout, unspecified; Translations: [Gout] Resolved: 02-08-2014 02-24-2018 Chronic Comment on above: not on uloric, or al lopurinol, has cut down on beer, no gout flare for awhile gouty arthritis not on uloric, perio dically takes allopurinol Improving on allopur inol, 300mg daily, Seeing Anthony Bernstein at [facility] gouty arthritis, See s Alli in [place] Hemorrhoids (2 sources) Hemorrhoids 07-27-2023 Episodic Hyperplasia of prostate (12 sources) Benign prostatic hypertrophy with outflow obstruction 10-09-2019 Chronic Hypertension with complications and secondary hypertension (4 sources) Hypertensive heart disease without congestive heart failure; Translations: [Hypertensive heart disease without heart failure] Onset: 10-09-2024 05-24-2023 Chronic Malaise and fatigue (2 sources) Fatigue; Translations: [Other fatigue] 01-16-2024 Episodic Melanomas of skin (12 sources) History of malignant melanoma of the skin 05-02-2019 Episodic Mood disorders (2 sources) Severe major depression 09-07-2023 Chronic Neoplasms of unspecified nature or uncertain behavior (3 sources) Monoclonal gammopathy; Translations: [Monoclonal gammopathy (clinical)] Onset: 09-19-2015 09-19-2015 Chronic Nonspecific chest pain (6 sources) Chest pain, unspecified; Translations: [Chest discomfort] Onset: 04-04-2014 Resolved: 10-07-2015 10-07-2015 Episodic Nutritional deficiencies (20 sources) Vitamin B12 deficiency (non anemic); Translations: [Cobalamin deficiency] 02-24-2018 Episodic Comment on above: taking B12 Osteoarthritis (20 sources) Arthritis; Translations: [Degenerative joint disease involving multiple joints] 02-24-2018 Chronic Other bone disease and musculoskeletal deformities (12 sources) Somatic dysfunction of rib 03-31-2020 Episodic Other bone disease and musculoskeletal deformities (2 sources) Osteopenia 03-26-2023 Episodic Other circulatory disease (7 sources) Arterial hemorrhage; Translations: [Hemorrhage, not elsewhere classified] 12-17-2022 Episodic Other connective tissue disease (20 sources) Leg swelling symptom; Translations: [Other specified soft tissue disorders] 02-24-2018 Episodic Comment on above: worked up, has had a rtery removed in past some swelling. Other connective tissue disease (18 sources) Pain in buttock; Translations: [Right buttock pain] 02-24-2018 Episodic Comment on above: had for years sounds like mjuscle ? piriformis will see PT first. no sound like scitica not go down leg and related to twisting. told us biofreeze and tylenol rare ibu Other connective tissue disease (18 sources) Olecranon bursitis; Translations: [Olecranon bursitis, left] 11-30-2017 Episodic Comment on above: will drain small amt Other connective tissue disease (20 sources) Olecranon bursitis; Translations: [Olecranon bursitis] Resolved: 08-16-2018 09-10-2016 Episodic Comment on above: bilateral elbows now , uric acid 8.0, will try uloric and prednisone Had both elbows drained by [facility] and [facility] Dr. Kee in [place] want to take allopurinol Other connective tissue disease (20 sources) Hand pain; Translations: [Pain of hand, unspecified laterality] Resolved: 02-08-2014 04-08-2015 Episodic Other connective tissue disease (20 sources) Foot pain; Translations: [Foot pain] 02-24-2018 Episodic Comment on above: has been on predniso ne for what he thought gout, with minor relief, ? plantars fascitits Other connective tissue disease (18 sources) Swelling of lower limb; Translations: [Leg swelling] 11-30-2017 Episodic Other connective tissue disease (12 sources) Bursitis of knee 04-30-2019 Episodic Other connective tissue disease (12 sources) Disorder of rotator cuff 10-09-2019 Episodic Other ear and sense organ disorders (18 sources) Bilateral hearing loss; Translations: [Hearing loss, bilateral] 02-24-2018 Chronic Comment on above: saw ENT Other ear and sense organ disorders (20 sources) Tinnitus; Translations: [Tinnitus] 02-24-2018 Episodic Comment on above: ? Meniers will give Lipoflavanoid vitamins, neg grace -halpike, he will get up slower, he wants to wait for CT of head Other endocrine disorders (2 sources) Hypoglycemia 12-21-2023 Chronic Other gastrointestinal disorders (2 sources) Constipation 09-07-2023 Episodic Other hereditary and degenerative nervous system conditions (12 sources) Essential tremor 07-01-2020 Chronic Other injuries and conditions due to external causes (9 sources) Dog bite - wound 11-24-2021 Episodic Other injuries and conditions due to external causes (2 sources) At low risk for fall 03-16-2022 Episodic Other injuries and conditions due to external causes (1 source) Hematoma; Translations: [Other injury of unspecified body region, initial encounter] 12-21-2022 Episodic Other injuries and conditions due to external causes (1 source) Other injury of unspecified body region, initial encounter; Translations: [Hematoma] Onset: 12-21-2022 Episodic Other lower respiratory disease (12 sources) Rib pain 03-31-2020 Episodic Other nervous system disorders (14 sources) Peripheral nerve disease ; Translations: [Peripheral neuropathy] 12-18-2018 Chronic Comment on above: bilat LE EMG donebilat LE Other nervous system disorders (12 sources) 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 Other non-traumatic joint disorders (20 sources) Joint pain; Translations: [Arthralgia] Resolved: 09-13-2014 02-24-2018 Episodic Comment on above: takes ibuprofen Other non-traumatic joint disorders (3 sources) Disorder of hand; Translations: [Skin lesion of hand] 02-23-2019 Episodic Other non-traumatic joint disorders (12 sources) Swelling of knee joint 07-10-2019 Episodic Other non-traumatic joint disorders (2 sources) Knee pain 07-27-2023 Episodic Other nutritional; endocrine; and metabolic disorders (18 sources) Body mass index 25-29 - overweight; Translations: [BMI 25.0-25.9,adult] 08-16-2018 Chronic Other nutritional; endocrine; and metabolic disorders (20 sources) Weight loss; Translations: [Weight loss] 01-10-2019 Episodic Other screening for suspected conditions (not mental disorders or infectious disease) (20 sources) Blood chemistry abnormal; Translations: [Increased blood lead level] 08-30-2017 Episodic Comment on above: had elevated WBC 14. 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 Wilkes to evaluate labs before sending for consult WBC came down to 9.8 as pt took prednisone and burning feet resolved. 16 Other skin disorders (20 sources) Actinic keratosis; Translations: [Actinic keratosis] 02-24-2018 Episodic Comment on above: right upper cheek te mple 2 [place] Other skin disorders (20 sources) Keratosis; Translations: [Keratosis] Resolved: 08-16-2018 02-24-2018 Episodic Comment on above: to return for remova l Other skin disorders (18 sources) Disorder of the skin and subcutaneous tissue, unspecified; Translations: [Lesion of skin of face] 05-04-2016 Episodic Comment on above: and arm Other skin disorders (12 sources) Multiple actinic keratoses 05-02-2019 Episodic Other skin disorders (9 sources) Cyst of skin 11-24-2021 Episodic Peripheral and visceral atherosclerosis (15 sources) Atherosclerosis of aorta; Translations: [Atherosclerosis of bilateral iliac arteries] 12-17-2022 Chronic Poisoning by nonmedicinal substances (12 sources) Toxic effect of lead compound 05-02-2019 Chronic Residual codes; unclassified (20 sources) Insomnia; Translations: [Insomnia] Resolved: 08-16-2018 02-24-2018 Episodic Comment on above: gets anxiety and use chronic ativan (lorazepam) at night for years. warn cannot mix wtih etoh. Will discuss at next visit Residual codes; unclassified (20 sources) Sleep disorder; Translations: [Disordered sleep] Resolved: 08-16-2018 02-24-2018 Episodic Comment on above: ativan not work anym ore. try switching it to ambien. tell side effects of sleepwalking and amnesia Residual codes; unclassified (4 sources) Body Mass Index between 19-24, adult; Translations: [BMI between 19-24,adult] 08-16-2018 Episodic Residual codes; unclassified (10 sources) Body mass index (BMI) 24.0-24.9, adult; Translations: [BMI 24.0-24.9, adult] 08-16-2018 Episodic Residual codes; unclassified (9 sources) Pain; Translations: [Pain disorder] 01-24-2019 Episodic Comment on above: has rt torn rotator , but does not want surgery, hip pain Rt. pain in all joints Residual codes; unclassified (12 sources) Edema of lower extremity 05-02-2019 Episodic Residual codes; unclassified (7 sources) Immunization due 03-16-2022 Episodic Residual codes; unclassified (2 sources) Chews tobacco 01-10-2023 Episodic Residual codes; unclassified (3 sources) Screening due 03-15-2023 Episodic Rheumatoid arthritis and related disease (1 source) Inflammatory polyarthropathy; Translations: [Inflammatory polyarthropathy] Onset: 08-16-2024 Chronic Screening and history of mental health and substance abuse codes (2 sources) Tobacco use and exposure - finding 09-07-2023 Chronic Skin and subcutaneous tissue infections (20 sources) Cellulitis of elbow; Translations: [Cellulitis of elbow] Resolved: 08-16-2018 02-24-2018 Episodic Comment on above: culture and antibiot ic, awaiting culture Spondylosis; intervertebral disc disorders; other back problems (3 sources) Degeneration of lumbar intervertebral disc 03-15-2023 Chronic Superficial injury; contusion (14 sources) Hematoma of left thigh; Translations: [Contusion of left thigh, initial encounter] Onset: 12-17-2022 12-17-2022 Episodic Unclassified (1 source) Long-term drug therapy; Translations: [Other senior living (current) drug therapy] Onset: 09-29-2010 09-29-2010 Unclassified (1 source) 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; Translations: [Presence of aortocoronary bypass graft] Onset: 09-29-2010 10-06-2016 Unclassified (1 source) Unknown / UNK(Unknown) Onset: 03-18-2017 Unclassified (18 sources) Bilateral ankle pain Unclassified (20 sources) Onset: 12-17-2022 Unclassified (20 sources) Disorder, tobacco use (305.1) Unclassified (20 sources) Well Male Exam (V70.0) Unclassified (20 sources) Hypertension,benign(4 01.1) Unclassified (20 sources) Pelvis/Thigh/Hip Pain (719.45) Unclassified (20 sources) Right buttock pain Unclassified (20 sources) Abnormal blood chemistry (790.6) Unclassified (20 sources) LEUKOPLAKIA, ORAL MUCOSA INCLUDING TONGUE (528.6) Unclassified (20 sources) Disequilibrium of Gait(781.2) Unclassified (20 sources) ARTHRALGIAS 719.40 Unclassified (20 sources) Grieving Unclassified (20 sources) Non-smoker; Translations: [Nonsmoker] 08-16-2018 Unclassified (20 sources) Screening status; Translations: [Screening PSA (prostate specific antigen)] 02-24-2018 Unclassified (20 sources) Patient encounter status; Translations: [Well Male Exam (V70.0) (Renamed from Well Male Exam)] 02-24-2018 Comment on above: 03-06 reveiwed with patient all questions colonscnopy 2007 recheck 3-14 good, refuse pneumovax and influenxza and shingles , refuse pneumovax a nd influenxza and shingles Unclassified (20 sources) Olecranon bursitis, left Unclassified (20 sources) ABUSE, ALCOHOL, UNSPECIFIED (305.00) Unclassified (20 sources) BMI 24.0-24.9, adult; Translations: [Body mass index 20-24 - normal] 09-04-2018 Unclassified (20 sources) Gout, arthropathy Unclassified (20 sources) Gouty arthropathy with tophi Unclassified (20 sources) Arthralgia Unclassified (20 sources) Hypertension, benign Unclassified (20 sources) Mild coronary artery disease Unclassified (20 sources) BMI between 19-24,adult; Translations: [Finding of body mass index] 08-16-2018 Unclassified (20 sources) Elevated LDL cholesterol level Unclassified (18 sources) Elevated blood uric acid level Unclassified (18 sources) Memory loss, short term Unclassified (18 sources) Elevated WBC count Unclassified (18 sources) Skin lesion of face Unclassified (20 sources) Neutrophilic leukocytosis Unclassified (18 sources) Nicotine dependence, uncomplicated, unspecified nicotine product type Unclassified (18 sources) Alcohol abuse, continuous Unclassified (18 sources) Disordered sleep Unclassified (18 sources) 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) Rising PSA level; Translations: [Measurement finding] 09-04-2018 Comment on above: at 2.5 now has gone up slightly offered Urology consult, will follow and repeat August 2019 Unclassified (20 sources) Body mass index 20-24 - normal; Translations: [BMI 23.0-23.9, adult] 01-10-2019 Unclassified (13 sources) Right upper quadrant abdominal pain Unclassified (13 sources) Paresthesia of both feet Unclassified (12 sources) Drug therapy finding 10-09-2019 Unclassified (7 sources) Medication refused 03-16-2022 Past or Other Problems Problem Classification Problem Date Documented Date Episodic/Chronic Adjustment disorders (18 sources) Adjustment disorder with depressed mood; Translations: [Grief finding] Resolved: 02-20-2015 02-20-2015 Chronic Comment on above: put dog and very thelma d time. even before this had anxiety will treat Alcohol-related disorders (20 sources) Nondependent alcohol abuse, continuous; Translations: [Alcohol abuse, unspecified] Resolved: 08-26-2015 08-26-2015 Chronic Comment on above: 4-5 beers a week onl y been down a month. now down to 2 a week Anxiety disorders (18 sources) Feeling irritable; Translations: [Irritability] Resolved: 08-16-2018 02-24-2018 Episodic Comment on above: at this time, does n ot want to take brain candy, discussed fluoxetine Cardiac dysrhythmias (10 sources) Palpitations; Translations: [Palpitations] Onset: 01-13-2024 12-20-2022 Episodic Conditions associated with dizziness or vertigo (20 sources) Conditions associated with dizziness or vertigo Coronary atherosclerosis and other heart disease (18 sources) Coronary atherosclerosis and other heart disease Diseases of mouth; excluding dental (18 sources) Leukoplakia of oral mucosa; 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] Resolved: 08-16-2018 02-24-2018 Episodic Comment on above: biopsy by phil on lip recheck this regularly Neoplasms of unspecified nature or uncertain behavior (18 sources) Neoplasm of uncertain behavior of skin; Translations: [Neoplasm of uncertain behavior of skin] Resolved: 02-08-2014 04-07-2015 Episodic Other connective tissue disease (4 sources) Olecranon bursitis, left elbow; Translations: [Olecranon bursitis of left elbow] Resolved: 08-16-2018 02-24-2018 Episodic Other connective tissue disease (14 sources) Swelling of right lower limb; Translations: [Right leg swelling] 09-04-2018 Comment on above: worked up, has had a rtery removed in past some swelling. Other connective tissue disease (14 sources) Bursitis of olecranon of left elbow; Translations: [Olecranon bursitis of left elbow] Resolved: 08-16-2018 09-04-2018 Other connective tissue disease (9 sources) Pain in right foot; Translations: [Right foot pain] 01-24-2019 Comment on above: Arterial circulation study Sol normal, nerve conduction pending 01-31-19 Other nervous system disorders (18 sources) Abnormal gait; Translations: [Gait abnormality] Resolved: 09-13-2014 04-11-2015 Episodic Comment on above: stagger some this am no other neuro signs and symptoms for stroke. orthostatic some positive. will cut back hctz. on asa. told any neuro signs and symptoms start to ER. dread exercise for vertigo. Other non-traumatic joint disorders (18 sources) Ankle pain; Translations: [Bilateral ankle pain] Resolved: 08-16-2018 02-24-2018 Episodic Comment on above: worse with mowing la wn ? neuropathy Other non-traumatic joint disorders (18 sources) Disorder of elbow; Translations: [Inflammation of left elbow] Resolved: 08-16-2018 02-24-2018 Episodic Other non-traumatic joint disorders (7 sources) Pain in right hip joint; Translations: [Right hip pain] 01-25-2019 Comment on above: to ask radiologist r e mri of hip Other nutritional; endocrine; and metabolic disorders (18 sources) Hyperuricemia; Translations: [Elevated blood uric acid level] Resolved: 08-16-2018 02-24-2018 Episodic Comment on above: uric acid 8.0 goal < 6 does not want to take allopurinol, will try samples of uloric (6 weeks given) Other nutritional; endocrine; and metabolic disorders (18 sources) Raised low density lipoprotein cholesterol; Translations: [Elevated LDL cholesterol level] Resolved: 08-26-2015 08-26-2015 Episodic Comment on above: ldl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 By: Rachael Seymour on 08-08-2024 Estimated GFR (MDRD) Non-Af Amer 73 >60 [facility] Comment on above: mL/min/1.73m2 CKD-EP I Creatinine Equation (2020) Glomerular filtration rate ( GFR) estimation/1.73 sq m using serum, plasma, or whole bOrdered By: Rachael Seymour on 08-08-2024 GFR/1.73 sq M.predicted among non-blacks MDRD (S/P/Bld) [Vol rate/Area] 73 mL/min/{1.73_m2} >60 [facility] Comment on above: mL/min/1.73m2 CKD-EP I Creatinine Equation (2020) Glucose Ql (U)Ordered By: Ervin Seymour on 08-08-2024 Urine Glucose (UA) Normal mg/dl Normal [facility] HBV surface Ab Ql (S)Ordered By: Rachael Seymour on 08-08-2024 Hepatitis B Surface Antibody Non-Reactive [facility] Comment on above: <8.5 mIU/mL: Non-[place]hav[place] ctive8.5<= x <11.5 mIU/mL: Indeterminate>=11.5 mIU/mL: Reactive Non Reactive: Inconsistent with immunity less than <10 mIU/mL Reactive: Consistent with immunity greater than or equal to 10 mIU/mL HBV surface Ag Ql (S)Ordered By: Rachael Seymour on 08-08-2024 Hepatitis B Surface Antigen Non-Reactive Nonreactive [facility] Comment on above: Reactive: Presumptiv e evidence of HBV. Repeatedly reactive samples must be confirmed using a neutralization test ([employer] HBsAg Confirmatory Test)Non-Reactive: HBsAg not detected; does not exclude the possibility of exposure to HBV Hematocrit Auto (Bld) [Volum e fraction]Ordered By: Rachael Seymour on 08-08-2024 Hematocrit (Bld) [Volume fraction] 45.9 % 40-54 [facility] Hemoglobin measurementOrdere d By: Rachael Seymour on 08-08-2024 Hemoglobin (Bld) [Mass/Vol] 15.7 g/dL 13.0-16.5 [facility] Hepatitis C antibodyOrdered By: Rachael Seymour on 08-08-2024 Hepatitis C Antibody Non-Reactive Nonreactive [facility] Comment on above: Reactive: Presumptiv e evidence of antibodies to HCV. Follow CDC recommendations for supplemental testing.Non-Reactive: Antibodies to HCV were not detected; does not exclude the possibility of exposure to HCVReactive Results are presumptive evidence of antibodies to HCV. Follow CDC recommendations for supplemental testing.Order confirmation testing: HCV Quant by PCR testing - HCVPCR #[id number] Non Reactive: < 0.8 Equivocal: >/= 0.8 to < 1.0 Reactive: >/= 1.0The [facility] requires that a reactive/equivocal HCV antibody result be sent out for confirmation. HCV Quant by PCR testing. Immature granulocytes/100 WB C Auto (Bld)Ordered By: Rachael Seymour on 08-08-2024 Immature granulocytes/100 WBC (Bld) 0.400 % 0.0-0.9 [facility] Comment on above: IG% - Immature Granu locytes (promyelocytes, myelocytes and metamyelocytes) > 1% indicates that a LEFT SHIFT is Present. Ketones Test strip Ql (U)Ord ered By: Rachael Seymour on 08-08-2024 Ketones Ql (U) Negative Negative [facility] L3890.6102on 08-08-2024 HEP B Surf Ag Non-Reactive Normal Nonreactive [facility] Comment on above: Result Comment: Reac tive: Presumptive evidence of HBV. Repeatedly reactive samples must be confirmed using a neutralization test ([employer] HBsAg Confirmatory Test) Non-Reactive: HBsAg not detected; does not exclude the possibility of exposure to HBV Performed By: #### L 500.4050, L400.2011, L501.0900, L3890.6102, L100.0100, L3890.6301, L3890.6202 ####[facility] [address] [place], [place], [address] L3890.6202on 08-08-2024 HEP B Surf Ab Non-Reactive Normal [facility] Comment on above: Result Comment: <8.5 mIU/mL: Non-Reactive 8.5<= x <11.5 mIU/mL: Indeterminate >=11.5 mIU/mL: Reactive Non Reactive: Inconsistent with immunity less than <10 mIU/mL Reactive: Consistent with immunity greater than or equal to 10 mIU/mL Performed By: #### L 500.4050, L400.2010, L501.0900, L3890.6102, L100.0100, L3890.6301, L3890.6202 ####[facility] [address] [place], [place], [address] L3890.6301on 08-08-2024 Hepatitis C Ab Non-Reactive Normal Nonreactive [facility] Comment on above: Result Comment: Reac tive: Presumptive evidence of antibodies to HCV. Follow CDC recommendations for supplemental testing. Non-Reactive: Antibodies to HCV were not detected; does not exclude the possibility of exposure to HCV Reactive Results are presumptive evidence of antibodies to HCV. Follow CDC recommendations for supplemental testing. Order confirmation testing: HCV Quant by PCR testing - HCVPCR #[id number] Non Reactive: < 0.8 Equivocal: >/= 0.8 to < 1.0 Reactive: >/= 1.0 The CDC requires that a reactive/equivocal HCV antibody result be sent out for confirmation. HCV Quant by PCR testing. Performed By: #### L 500.4050, L400.2010, L501.0900, L3890.6102, L100.0100, L3890.6301, L3890.6202 ####[facility] [address] [place], [place], [address] Laboratory - Chemistry and C hemistry - challengeOrdered By: Rachael Seymour on 08-08-2024 AST [Catalytic activity/Vol] 19 U/L <38 [facility] Laboratory - Microbiology an d Antimicrobial susceptibilityOrdered By: Rachael Seymour on 08-08-2024 HBV surface Ag Ql (S) Non-Reactive Nonreactive [facility] Comment on above: Reactive: Presumptiv e evidence of HBV. Repeatedly reactive samples must be confirmed using a neutralization test ([employer] HBsAg Confirmatory Test)Non-Reactive: HBsAg not detected; does not exclude the possibility of exposure to HBV Lymphocytes Auto (Unsp spec) [#/Vol]Ordered By: Rachael Seymour on 08-08-2024 Lymphocytes (Bld) [#/Vol] 3.00 10*3/uL 0.83-4.51 [facility] Lymphocytes/100 WBC Auto (Un sp spec)Ordered By: Rachael Seymour on 08-08-2024 Lymphocytes/100 WBC (Bld) 25.8 % 19-41 [facility] MCV (mean corpuscular volume ) determinationOrdered By: Rachael Seymour on 08-08-2024 MCV (RBC) [Entitic vol] 91.3 fL 80-94 [facility] Mean corpuscular hemoglobin (MCH) determinationOrdered By: Rachael Seymour on 08-08-2024 MCH (RBC) [Entitic mass] 31.2 pg 27.0-32.0 [facility] Mean corpuscular hemoglobin concentration (MCHC) determinationOrdered By: Rachael Seymour on 08-08-2024 MCHC (RBC) [Mass/Vol] 34.2 g/dL 32-36 [facility] Mean platelet volume determi nationOrdered By: Rachael Seymour on 08-08-2024 Platelet mean volume (Bld) [Entitic vol] 9.2 fL 6.2-12.0 [facility] Miscellaneous procedureOrder ed By: Rachael Seymour on 08-08-2024 Miscellaneous Test Comment MAILED SPECIMEN [facility] Monocyte percentageOrdered B y: Rachael Seymour on 08-08-2024 Monocytes/100 WBC (Bld) 8.9 % 0-10 [facility] Neutrophil percentageOrdered By: Rachael Seymour on 08-08-2024 Neutrophils/100 WBC (Bld) 62.6 % 47-70 [facility] Nitrite Test strip Ql (U)Ord ered By: Rachael Seymour on 08-08-2024 Nitrite Ql (U) Negative Negative [facility] Nucleated red blood cell per centageOrdered By: Rachael Seymour on 08-08-2024 Nucleated RBC/100 WBC (Bld) [Ratio] 0 % 0-5 [facility] Platelet countOrdered By: Ervin Seymour on 08-08-2024 Platelets (Bld) [#/Vol] 296 10*3/uL 150-450 [facility] Potassium (Unsp spec) [Mass/ Vol]Ordered By: Rachael Seymour on 08-08-2024 Potassium [Moles/Vol] 4.0 mmol/L 3.3-5.1 [facility] Potassium measurement (mass/ volume)Ordered By: Rachael Seymour on 08-08-2024 Potassium (Unsp spec) [Mass/Vol] 4.0 mmol/L 3.3-5.1 [facility] Protein Test strip Ql (U)Ord ered By: Rachael Seymour on 08-08-2024 Protein Ql (U) 15 mg/dl High Negative [facility] Protein+Creatinine Ratio,Uri neon 08-08-2024 UR CREAT 204.00 mg/dL Normal 39.00-259.00 [facility] Comment on above: Performed By: #### L 500.4050, L400.2011, L501.0900, L3890.6102, L100.0100, L3890.6301, L3890.6202 ####[facility] [address] [place], [address] Protein/Creatinine (U) [Mass ratio]Ordered By: Rachael Seymour on 08-08-2024 Urine Protein/Creatinine Ratio 74 mg/g CRE 0-200 [facility] Comment on above: Previous reported re sult: 74 mg/g CREEdited by: ZAHEER on 08/08/24:1859 AMENDED REPORT 08/08/241858 PROT:CRE RATIO previously reported as: 74 mg/g CRE RBC Auto (Bld) [#/Vol]Ordere d By: Rachael Seymour on 08-08-2024 RBC (Bld) [#/Vol] 5.03 10*6/uL 4.6-6.2 [facility] Random urine creatinine cherise urement (mass/volume)Ordered By: Rachael Seymour on 08-08-2024 Creatinine Unsp time (U) [Mass/Vol] 204.00 mg/dL 39.00-259.00 [facility] Serum creatinine measurement (mass/volume)Ordered By: Rachael Seymour on 08-08-2024 Creatinine [Mass/Vol] 1.04 mg/dL 0.70-1.20 [facility] Serum globulin measurementOr dered By: Rachael Seymour on 08-08-2024 Globulin (S) [Mass/Vol] 2.9 g/dL 2.2-4.2 [facility] Serum glucose measurement (m ass/volume)Ordered By: Rachael Seymour on 08-08-2024 Glucose [Mass/Vol] 89 mg/dL 70-99 [facility] Serum hepatitis B virus surf marie antibody detectionOrdered By: Rachael Seymour on 08-08-2024 HBV surface Ab Ql (S) Non-Reactive [facility] Comment on above: <8.5 mIU/mL: Non-[place] ctive8.5<= x <11.5 mIU/mL: Indeterminate>=11.5 mIU/mL: Reactive Non Reactive: Inconsistent with immunity less than <10 mIU/mL Reactive: Consistent with immunity greater than or equal to 10 mIU/mL Serum or plasma alanine cortes otransferase (ALT) measurementOrdered By: Rachael Seymour on 08-08-2024 ALT [Catalytic activity/Vol] 18 U/L <47 [facility] Serum or plasma albumin cherise urement (mass/volume)Ordered By: Rachael Seymour on 08-08-2024 Albumin [Mass/Vol] 4.4 g/dL 3.4-4.8 [facility] Serum or plasma albumin/glob ulin mass ratioOrdered By: Rachael Seymour on 08-08-2024 Albumin/Globulin [Mass ratio] 1.5 {ratio} 0.9-2.4 [facility] Serum or plasma alkaline allen sphatase measurementOrdered By: Rachael Seymour on 08-08-2024 ALP [Catalytic activity/Vol] 97 U/L 40-129 [facility] Serum or plasma calcium cherise urement (mass/volume)Ordered By: Rachael Seymour on 08-08-2024 Calcium [Mass/Vol] 9.6 mg/dL 7.6-11.0 [facility] Serum or plasma urea nitroge n measurement (mass/volume)Ordered By: Rachael Seymour on 08-08-2024 Urea nitrogen [Mass/Vol] 18 mg/dL 4-19 [facility] Sodium levelOrdered By: Umer Seymour on 08-08-2024 Sodium [Moles/Vol] 137 mmol/L 133-145 [facility] Total proteinOrdered By: Angelica Seymour on 08-08-2024 Protein [Mass/Vol] 7.3 g/dL 5.9-8.4 [facility] Urinalysis, Routine (Dipstic k)on 08-08-2024 BILIRUBIN URINE Negative Normal Negative [facility] Comment on above: Order Comment: Urine , Random Performed By: #### L 500.4050, L4.2010, L501.0900, L3890.6102, L100.0100, L3890.6301, L3890.6202 ####[facility] [address] [place], [address] Clarity (U) Clear Normal Clear [facility] Comment on above: Order Comment: Urine , Random Performed By: #### L 500.4050, L400.2010, L501.0900, L3890.6102, L100.0100, L3890.6301, L3890.6202 ####[facility] [address] [place], [address] Color (U) Yellow Normal Yellow [facility] Comment on above: Order Comment: Urine , Random Performed By: #### L 500.4050, L400.2010, L501.0900, L3890.6102, L100.0100, L3890.6301, L3890.6202 ####[facility] [address] [place], [address] GLUCOSE, UR Normal Normal Normal [facility] Comment on above: Order Comment: Urine , Random Performed By: #### L 500.4050, L400.2010, L501.0900, L3890.6102, L100.0100, L3890.6301, L3890.6202 ####[facility] [address] [place], [address] KETONE UR Negative Normal Negative [facility] Comment on above: Order Comment: Urine , Random Performed By: #### L 500.4050, L4.2010, L501.0900, L3890.6102, L100.0100, L3890.6301, L3890.6202 ####[facility] [address] [place], [address] LEUK ESTERASE 25 /ul Abnormal Negative [facility] Comment on above: Order Comment: Urine , Random Performed By: #### L 500.4050, L4, L501.0900, L3890.6102, L100.0100, L3890.6301, L3890.6202 ####[facility] [address] [place], [address] Nitrite Ql (U) Negative Normal Negative [facility] Comment on above: Order Comment: Urine , Random Performed By: #### L 500.4050, L4, L501.0900, L3890.6102, L100.0100, L3890.6301, L3890.6202 ####[facility] [address] [place], [address] OCCULT BLOOD-UR Negative Normal Negative [facility] Comment on above: Order Comment: Urine , Random Performed By: #### L 500.4050, L4.2010, L501.0900, L3890.6102, L100.0100, L3890.6301, L3890.6202 ####[facility] [address] [place], [address] pH UR 7.0 Normal 5.0 - 8.0 [facility] Comment on above: Order Comment: Urine , Random Performed By: #### L 500.4050, L400.2010, L501.0900, L3890.6102, L100.0100, L3890.6301, L3890.6202 ####[facility] [address] [place], [address] PROT DIPSTX 15 mg/dl Abnormal Negative [facility] Comment on above: Order Comment: Urine , Random Performed By: #### L 500.4050, L400.2010, L501.0900, L3890.6102, L100.0100, L3890.6301, L3890.6202 ####[facility] [address] [place], [address] SP.GR. DIPSTX 1.010 Normal 1.002-1.030 [facility] Comment on above: Order Comment: Urine , Random Performed By: #### L 500.4050, L400.2010, L501.0900, L3890.6102, L100.0100, L3890.6301, L3890.6202 ####[facility] [address] [place], [address] UROBILI 1 mg/dl Abnormal Normal [facility] Comment on above: Order Comment: Urine , Random Performed By: #### L 500.4050, L400.2010, L501.0900, L3890.6102, L100.0100, L3890.6301, L3890.6202 ####[facility] [address] [place], [address] Urine blood detectionOrdered By: Rachael Seymour on 08-08-2024 Urine Occult Blood Negative Negative [facility] Urine clarityOrdered By: Angelica Seymour on 08-08-2024 Clarity (U) Clear Clear [facility] Urine color determinationOrd ered By: Rachael Seymour on 08-08-2024 Color (U) Yellow Yellow [facility] Urine glucose detectionOrder ed By: Rachael Seymour on 08-08-2024 Glucose Ql (U) Normal mg/dl Normal [facility] Urine leukocyte esterase det ection by dipstickOrdered By: Rachael Seymour on 08-08-2024 Leukocyte esterase Test strip Ql (U) 25 /ul High Negative [facility] Urine pHOrdered By: Rachael barrett on 08-08-2024 pH (U) 7.0 [pH] 5.0 - 8.0 [facility] Urine protein measurement (m ass/volume)Ordered By: Rachael Seymour on 08-08-2024 Protein (U) [Mass/Vol] 15.1 mg/dL High 0.0-12.0 [facility] Urine protein/creatinine mas s ratioOrdered By: Rachael Seymour on 08-08-2024 Protein/Creatinine (U) [Mass ratio] 74 mg/g CRE 0-200 [facility] Comment on above: Previous reported re sult: 74 mg/g CREEdited by: ZAHEER on 08/08/24:1859 AMENDED REPORT 08/08/241858 PROT:CRE RATIO previously reported as: 74 mg/g CRE Urine specific gravity measu rementOrdered By: Rachael Seymour on 08-08-2024 Specific gravity (U) [Rel density] 1.010 1.002-1.030 [facility] Urine urobilinogen measureme ntOrdered By: Rachael Seymour on 08-08-2024 Urobilinogen Ql (U) 1 mg/dl High Normal [facility] Urobilinogen Ql (U)Ordered B y: Rachael Seymour on 08-08-2024 Urobilinogen (U) [Mass/Vol] 1 mg/dL High Normal [facility] White blood cell (WBC) count Ordered By: Rachael Seymour on 08-08-2024 WBC (Bld) [#/Vol] 11.6 10*3/uL High 4.4-11.0 [facility] ANCAon 07-12-2024 C-ANCA 1.5 Normal 0.0-20.0 [facility] Comment on above: Result Comment: NEW REFERENCE RANGES FOR ANCA BY EIA: NEGATIVE <= 20 UNITS WEAK POSITIVE 21 - 30 UNITS MOD. TO STRONG POSITIVE > 30 UNITS A positive result indicates the presence of NC-3 antibodies and suggests the possibility of certain autoimmune vasculitides such as Donny???s granulomatosis. A negative result indicates no NC-3 antibody or levels below the negative cut-off of the assay. These results were obtained with the [employer] QUANTA Lite NC-3 IgG HANNAH. NC-3 values obtained with different manufacturers??? assay methods may not be used interchangeably. The magnitude of the reported IgG level cannot be correlated to an endpoint titer. Results of this assay should be used in conjunction with clinical findings. Performed By: #### 1 18399, ANAIFS, CK, FT4, CRP, ANEU, TSH, ESR, ADIFF, LIPID, GFR, URIC, CBC, [id number], CMP, A1C #### [place] [id number] #### B12, ANCA, RF #### [place] [address] P-ANCA 1.0 Normal 0.0-20.0 [facility] Comment on above: Result Comment: REFE RENCE RANGES FOR ANCA BY EIA: NEGATIVE <= 20 UNITS WEAK POSITIVE 21 - 30 UNITS MOD. TO STRONG POSITIVE > 30 UNITS A positive result indicates the presence of MPO antibodies and suggests the possibility of certain autoimmune vasculitides such as microscopic polyarteritis, and crescentic glomerulonephritis. A negative result indicates no MPO antibody or levels below the negative cut-off of the assay. These results were obtained with the [employer] QUANTA Lite MPO IgG HANNAH. MPO values obtained with different manufacturers??? assay methods may not be used interchangeably. The magnitude of the reported IgG level cannot be correlated to an endpoint titer. Results of this assay should be used in conjunction with clinical findings. Performed By: #### 1 83899, ANAIFS, CK, FT4, CRP, ANEU, TSH, ESR, ADIFF, LIPID, GFR, URIC, CBC, [id number], CMP, A1C #### [address] [address] #### B12, ANCA, RF #### [place] [address] [place] [address] Diagnostic total prostate sp ecific antigen (PSA) measurementOrdered By: Carissa Galeano on 07-12-2024 Prostate Specific Antigen Total < 0.01 ng/mL 0.0-4.0 [facility] Comment on above: This test was perfor med using the TPSA assay method for the[employer] chemistry system. Values obtained with differentassay methods cannot be used interchangably.When changing PSA assays in the course of monitoring apatient, additional sequential testing should be carriedout to confirm baseline values. PSA,Total- Diagnosticon 06-24 PSA, DIAGNOSTIC < 0.01 Normal 0.0-4.0 [facility] Comment on above: Result Comment: This test was performed using the TPSA assay method for the [employer] chemistry system. Values obtained with different assay methods cannot be used interchangably. When changing PSA assays in the course of monitoring a patient, additional sequential testing should be carried out to confirm baseline values. Performed By: #### L 501.9940 ####[facility] [address] [place], [address] RFon 07-10-2024 Rheumatoid Factor <6.0 Normal <=5.9 [facility] Comment on above: Result Comment: RF I gM Antibody by Enzyme Immunoassay: Negative < or = 6 Positive > 6 A positive result indicates the presence of RF antibodies and suggests the possibility of rheumatoid arthritis. A negative result indicates no RF IgM antibody or levels below the negative cut-off of the assay. Results of this assay should be used in conjunction with clinical findings and other serological tests. These results were obtained with the [employer] QUANTA Lite RF IgM HANNAH. RF IgM values obtained with different manufacturers' assay methods may not be used interchangeably. The magnitude of the reported IgM levels cannot be correlated to an endpoint titer. Performed By: #### 1 33136, ANAIFS, CK, FT4, CRP, ANEU, TSH, ESR, ADIFF, LIPID, GFR, URIC, CBC, [id number], CMP, A1C #### [facility] [address] [place], [place] [address] #### B12, ANCA, RF #### [address] [address] B1WBon 07-09-2024 Vitamin B1 Whl Bld 254.9 nmol/L High 66.5-200.0 [facility] Comment on above: Result Comment: This test was developed and its performance characteristics determined by [facility]. It has not been cleared or approved by the Food and Drug Administration. Performed At: [facility] [address] [id number] He Wylie MD Ph:[phone] Performed By: #### 1 33087, ANAIFS, CK, FT4, CRP, ANEU, TSH, ESR, ADIFF, LIPID, GFR, URIC, CBC, 445694, CMP, A1C #### [address] [address] #### B12, ANCA, RF #### [place] [address] ANCAon 07-06-2024 Cytoplasmic Neutro. Ab. See Below Normal [facility] Comment on above: Performed By: #### 1 , ANAIFS, CK, FT4, CRP, ANEU, TSH, ESR, ADIFF, LIPID, GFR, URIC, CBC, 545344, CMP, A1C #### [address] [address] #### B12, ANCA, RF #### [place] [id number] LEADAon 07-06-2024 Blood Lead Purpose Initial Normal [facility] Comment on above: Performed By: #### 1 35768, ANAIFS, CK, FT4, CRP, ANEU, TSH, ESR, ADIFF, LIPID, GFR, URIC, CBC, 275401, CMP, A1C #### [address] [address] #### B12, ANCA, RF #### [place] [id number] Blood Lead Type Venous Normal [facility] Comment on above: Performed By: #### 1 91470, ANAIFS, CK, FT4, CRP, ANEU, TSH, ESR, ADIFF, LIPID, GFR, URIC, CBC, 533150, CMP, A1C #### [address] [address] #### B12, ANCA, RF #### [address] [address] Lead Adult Lvl 9.7 UG/DL High 0.0-3.4 [facility] Comment on above: Result Comment: Test ing performed by Inductively coupled plasma/Mass Spectrometry. Verified by repeat analysis Analysis by inductively coupled plasma/mass spectrometry (ICP/MS) This test was developed and its performance characteristics determined by [employer]. It has not been cleared or approved by the Food and Drug Administration. Environmental Exposure: WHO Recommendation <5.0 Occupational Exposure: OSHA Lead Std 40.0 NICK 30.0 Detection Limit = 1.0 Performed At: [facility] [id number] Will Swenson PhD Ph:[phone] Performed By: #### 1 75473, ANAIFS, CK, FT4, CRP, ANEU, TSH, ESR, ADIFF, LIPID, GFR, URIC, CBC, 833547, CMP, A1C #### [place] [address] #### B12, ANCA, RF #### [place] [address] ANAIFSon 07-04-2024 Antinuclear Ab Pattern Nuclear fine speckled Normal [facility] Comment on above: Result Comment: Perf ormed By: [place] [address] Perinatal Instructor: Nestor Fowler III#: [id number] Performed By: #### 1 77607, ANAIFS, CK, FT4, CRP, ANEU, TSH, ESR, ADIFF, LIPID, GFR, URIC, CBC, [id number], CMP, A1C #### [address] [address] #### B12, ANCA, RF #### [address] [address] Antinuclear Ab Screen Positive Abnormal Negative [facility] Comment on above: Result Comment: Anti -nuclear antibody test is used as an aid in diagnosis of systemic autoimmune diseases. Where positive and clinically warranted, follow-up using disease-specific testing is recommended. Low positive titers are not uncommon with advanced age, certain chronic infections, and malignancies among others. Test methodology: Indirect fluorescence immunoassay (IFA) using HEp-2 cells. Performed By: [place] [address] Perinatal Instructor: Javier Biggs III, M.D. CLIA#: [id number] Performed By: #### 1 79156, ANAIFS, CK, FT4, CRP, ANEU, TSH, ESR, ADIFF, LIPID, GFR, URIC, CBC, 384670, CMP, A1C #### [place] [address] #### B12, ANCA, RF #### [place] [address] Antinuclear Ab Titer 1:160 Normal [facility] Comment on above: Result Comment: Perf ormed By: [place] [address] Perinatal Instructor: Javier Biggs III, M.D. CLIA#: [id number] Performed By: #### 1 28016, ANAIFS, CK, FT4, CRP, ANEU, TSH, ESR, ADIFF, LIPID, GFR, URIC, CBC, 732589, CMP, A1C #### [place] [address] #### B12, ANCA, RF #### [place] [id number] .Auto Diffon 07-03-2024 Basophil, Absolute 0.1 10 3/mcL Normal 0.0-0.2 [facility] Comment on above: Performed By: #### 1 19221, ANAIFS, CK, FT4, CRP, ANEU, TSH, ESR, ADIFF, LIPID, GFR, URIC, CBC, 250065, CMP, A1C #### [place] [address] #### B12, ANCA, RF #### [address] [address] Basophils/100 WBC (Bld) 1.0 % Normal 0.0-2.5 [facility] Comment on above: Performed By: #### 1 55695, ANAIFS, CK, FT4, CRP, ANEU, TSH, ESR, ADIFF, LIPID, GFR, URIC, CBC, 536811, CMP, A1C #### [address] [address] #### B12, ANCA, RF #### [address] [address] Eosinophil, Absolute 0.2 10 3/mcL Normal 0.0-0.7 [facility] Comment on above: Performed By: #### 1 13223, ANAIFS, CK, FT4, CRP, ANEU, TSH, ESR, ADIFF, LIPID, GFR, URIC, CBC, 679719, CMP, A1C #### [address] [address] #### B12, ANCA, RF #### [address] [address] Eosinophils/100 WBC (Bld) 1.6 % Normal 0.0-7.0 [facility] Comment on above: Performed By: #### 1 04489, ANAIFS, CK, FT4, CRP, ANEU, TSH, ESR, ADIFF, LIPID, GFR, URIC, CBC, 700984, CMP, A1C #### [address] [address] #### B12, ANCA, RF #### [address] [address] Lymphocyte, Absolute 2.0 10 3/mcL Normal 0.9-4.3 [facility] Comment on above: Performed By: #### 1 42781, ANAIFS, CK, FT4, CRP, ANEU, TSH, ESR, ADIFF, LIPID, GFR, URIC, CBC, 817844, CMP, A1C #### [address] [address] #### B12, ANCA, RF #### [address] [address] Lymphocytes/100 WBC (Bld) 19.0 % Low 20.0-40.0 [facility] Comment on above: Performed By: #### 1 62797, ANAIFS, CK, FT4, CRP, ANEU, TSH, ESR, ADIFF, LIPID, GFR, URIC, CBC, 606309, CMP, A1C #### [address] [address] #### B12, ANCA, RF #### [address] [address] Monocyte, Absolute 0.8 10 3/mcL Normal 0.1-1.4 [facility] Comment on above: Performed By: #### 1 61506, ANAIFS, CK, FT4, CRP, ANEU, TSH, ESR, ADIFF, LIPID, GFR, URIC, CBC, 894881, CMP, A1C #### [address] [address] #### B12, ANCA, RF #### [address] [address] Monocytes/100 WBC (Bld) 7.5 % Normal 2.0-13.0 [facility] Comment on above: Performed By: #### 1 92707, ANAIFS, CK, FT4, CRP, ANEU, TSH, ESR, ADIFF, LIPID, GFR, URIC, CBC, 516654, CMP, A1C #### [address] [address] #### B12, ANCA, RF #### [address] [address] Neutrophils/100 WBC (Bld) 70.9 % Normal 50.0-75.0 [facility] Comment on above: Performed By: #### 1 75292, ANAIFS, CK, FT4, CRP, ANEU, TSH, ESR, ADIFF, LIPID, GFR, URIC, CBC, 782073, CMP, A1C #### [address] [address] #### B12, ANCA, RF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 Normal [facility] ([place]) Comment on above: Performed By: #### F OL, B12, IFES, SPE #### [place] [address] #### MMA, TSH, A1C, ENA1 #### [address] [address] LEADAon 01-19-2024 Lead Adult Lvl 9.9 UG/DL High 0.0-3.4 On license of [facility] ([place]) Comment on above: Result Comment: Test ing performed by Inductively coupled plasma/Mass Spectrometry. Verified by repeat analysis Analysis by inductively coupled plasma/mass spectrometry (ICP/MS) This test was developed and its performance characteristics determined by [employer]. It has not been cleared or approved by the Food and Drug Administration. Environmental Exposure: WHO Recommendation <5.0 Occupational Exposure: OSHA Lead Std 40.0 NICK 30.0 Detection Limit = 1.0 Performed At: [facility] [id number] Will Swenson PhD Ph:[phone] Performed By: #### F OL, B12, IFES, SPE #### [place] [address] #### MMA, TSH, A1C, ENA1 #### [address] [address] .Auto Diffon 01-18-2024 Basophil, Absolute 0.1 10 3/mcL Normal 0.0-0.2 [facility] ([place]) Comment on above: Performed By: #### F OL, B12, IFES, SPE #### [place] [address] #### MMA, TSH, A1C, ENA1 #### [address] [address] Basophils/100 WBC (Bld) 0.7 % Normal 0.0-2.5 [facility] ([place]) Comment on above: Performed By: #### F OL, B12, IFES, SPE #### [place] [address] #### MMA, TSH, A1C, ENA1 #### [address] [address] Eosinophil, Absolute 0.2 10 3/mcL Normal 0.0-0.4 [facility] ([place]) Comment on above: Performed By: #### F OL, B12, IFES, SPE #### [place] [address] #### MMA, TSH, A1C, ENA1 #### [address] [address] Eosinophils/100 WBC (Bld) 2.0 % Normal 0.0-7.0 [facility] ([place]) Comment on above: Performed By: #### F OL, B12, IFES, SPE #### [place] [address] #### MMA, TSH, A1C, ENA1 #### [address] [address] Lymphocyte, Absolute 2.0 10 3/mcL Normal 0.8-3.9 [facility] ([place]) Comment on above: Performed By: #### F OL, B12, IFES, SPE #### [place] [address] #### MMA, TSH, A1C, ENA1 #### [address] [address] Lymphocytes/100 WBC (Bld) 22.7 % Normal 10.0-50.0 [facility] ([place]) Comment on above: Performed By: #### F OL, B12, IFES, SPE #### [place] [address] #### MMA, TSH, A1C, ENA1 #### [address] [address] Monocyte, Absolute 0.7 10 3/mcL Normal 0.2-1.0 [facility] ([place]) Comment on above: Performed By: #### F OL, B12, IFES, SPE #### [place] [address] #### MMA, TSH, A1C, ENA1 #### [address] [address] Monocytes/100 WBC (Bld) 8.3 % Normal 1.7-13.0 [facility] ([place]) Comment on above: Performed By: #### F OL, B12, IFES, SPE #### [address] [address] #### MMA, TSH, A1C, ENA1 #### [address] [address] Neutrophils/100 WBC (Bld) 66.3 % Normal 37.0-80.0 [facility] ([place]) Comment on above: Performed By: #### F OL, B12, IFES, SPE #### [address] [address] #### MMA, TSH, A1C, ENA1 #### [address] [address] .GFRon 01-18-2024 GFR 98 ml/min/1.73sqm Normal [facility] ([place]) Comment on above: Result Comment: GFR Population mean for , Non- Americans Ages 20-29 = 116 mL/min/1.73 sq.m. Ages 30-39 = 107 mL/min/1.73 sq.m. Ages 40-49 = 99 mL/min/1.73 sq.m. Ages 50-59 = 93 mL/min/1.73 sq.m. Ages 60-69 = 85 mL/min/1.73 sq.m. Ages 70+ = 75 mL/min/1.73 sq.m. Chronic Kidney Disease: Less than 60 mL/min/1.73 square meters End Stage Renal Disease: Less than 15 mL/min/1.73 square meters Performed By: #### F OL, B12, IFES, SPE #### [address] [address] #### MMA, TSH, A1C, ENA1 #### [address] [address] GFR Non- 81 ml/min/1.73sqm Normal [facility] ([place]) Comment on above: Result Comment: GFR Population mean for , Non- Americans Ages 20-29 = 116 mL/min/1.73 sq.m. Ages 30-39 = 107 mL/min/1.73 sq.m. Ages 40-49 = 99 mL/min/1.73 sq.m. Ages 50-59 = 93 mL/min/1.73 sq.m. Ages 60-69 = 85 mL/min/1.73 sq.m. Ages 70+ = 75 mL/min/1.73 sq.m. Chronic Kidney Disease: Less than 60 mL/min/1.73 square meters End Stage Renal Disease: Less than 15 mL/min/1.73 square meters Performed By: #### F OL, B12, IFES, SPE #### [place] [address] #### MMA, TSH, A1C, ENA1 #### [address] [address] .NEUABSon 01-18-2024 Neutrophil, Absolute 5.7 10 3/mcL Normal 2.9-6.2 [facility] ([place]) Comment on above: Performed By: #### F OL, B12, IFES, SPE #### [place] [address] #### MMA, TSH, A1C, ENA1 #### [address] [address] A1Con 01-18-2024 Glucose [Mass/Vol] 82 mg/dL Normal [facility] ([place]) Comment on above: Result Comment: Melba mated Average Glucose calculated by equation ((28.7xA1C)-46.7) Estimated average glucose (eAG) is a calculated value from Hemoglobin A1C and is open claims representative of the average blood glucose level in the last 2-3 month period. Normal range: less than 114 mg/dL Performed By: #### F OL, B12, IFES, SPE #### [place] [address] #### MMA, TSH, A1C, ENA1 #### [address] [address] HbA1c (Bld) [Mass fraction] 4.5 % Normal 4.3-6.4 [facility] ([place]) Comment on above: Performed By: #### F OL, B12, IFES, SPE #### [facility] [address] [place] [address] #### MMA, TSH, A1C, ENA1 #### [address] [address] CBCon 01-18-2024 Erythrocyte distribution width (RBC) [Ratio] 13.8 % Normal 11.5-14.5 [facility] ([place]) Comment on above: Performed By: #### A DIFF, [id number], LIPID, A1C, ANEU, CBC, GFR, URIC, TSH, CMP #### [address] [address] Hematocrit (Bld) [Volume fraction] 42.6 % Normal 42.0-52.0 [facility] ([place]) Comment on above: Performed By: #### A DIFF, [id number], LIPID, A1C, ANEU, CBC, GFR, URIC, TSH, CMP #### [address] [address] Hgb 14.5 G/dL Normal 14.0-18.0 [facility] ([place]) Comment on above: Performed By: #### A DIFF, [id number], LIPID, A1C, ANEU, CBC, GFR, URIC, TSH, CMP #### [address] [address] MCH (RBC) [Entitic mass] 31.1 pg Normal 27.0-31.2 [facility] ([place]) Comment on above: Performed By: #### A DIFF, [id number], LIPID, A1C, ANEU, CBC, GFR, URIC, TSH, CMP #### [address] [address] MCHC 34.1 G/dL Normal 31.8-35.4 [facility] ([place]) Comment on above: Performed By: #### A DIFF, 784134, LIPID, A1C, ANEU, CBC, GFR, URIC, TSH, CMP #### [address] [address] MCV (RBC) [Entitic vol] 91.2 fL Normal 80.0-94.0 [facility] ([place]) Comment on above: Performed By: #### A DIFF, [id number], LIPID, A1C, ANEU, CBC, GFR, URIC, TSH, CMP #### [address] [address] Platelet 203 10 3/mcL Normal 130-400 [facility] ([place]) Comment on above: Performed By: #### A DIFF, [id number], LIPID, A1C, ANEU, CBC, GFR, URIC, TSH, CMP #### [address] [address] Platelet mean volume (Bld) [Entitic vol] 7.3 fL Low 7.4-10.4 [facility] ([place]) Comment on above: Performed By: #### A DIFF, [id number], LIPID, A1C, ANEU, CBC, GFR, URIC, TSH, CMP #### [address] [address] RBC 4.67 10 6/mcL Normal 4.04-6.13 [facility] ([place]) Comment on above: Performed By: #### A DIFF, 363271, LIPID, A1C, ANEU, CBC, GFR, URIC, TSH, CMP #### [address] [address] WBC 8.6 10 3/mcL Normal 4.6-10.8 [facility] ([place]) Comment on above: Performed By: #### A DIFF, 637783, LIPID, A1C, ANEU, CBC, GFR, URIC, TSH, CMP #### [address] [address] CMPon 01-18-2024 Albumin Level 4.0 G/dL Normal 3.4-4.8 [facility] ([place]) Comment on above: Performed By: #### F OL, B12, IFES, SPE #### [address] [address] #### MMA, TSH, A1C, ENA1 #### [address] [address] Albumin/Globulin [Mass ratio] 1.4 {ratio} Normal 1.1-2.5 [facility] ([place]) Comment on above: Performed By: #### F OL, B12, IFES, SPE #### [place] [address] #### MMA, TSH, A1C, ENA1 #### [address] [address] ALP [Catalytic activity/Vol] 85 U/L Normal 40-135 [facility] ([place]) Comment on above: Performed By: #### F OL, B12, IFES, SPE #### [place] [address] #### MMA, TSH, A1C, ENA1 #### [address] [address] ALT [Catalytic activity/Vol] 25 U/L Normal 16-63 [facility] ([place]) Comment on above: Performed By: #### F OL, B12, IFES, SPE #### [place] [address] #### MMA, TSH, A1C, ENA1 #### [address] [address] AST [Catalytic activity/Vol] 16 U/L Normal 10-40 [facility] ([place]) Comment on above: Performed By: #### F OL, B12, IFES, SPE #### [place] [address] #### MMA, TSH, A1C, ENA1 #### [address] [address] Bili Total 1.9 mg/dL High 0.2-1.0 [facility] ([place]) Comment on above: Result Comment: Use of this assay is not recommended for patients undergoing treatment with eltrombopag due to the potential for falsely elevated results. Performed By: #### F OL, B12, IFES, SPE #### [place] [address] #### MMA, TSH, A1C, ENA1 #### [address] [address] BUN/Creatinine Ratio 22 ratio Normal 7-27 [facility] ([place]) Comment on above: Performed By: #### F OL, B12, IFES, SPE #### [place] [address] #### MMA, TSH, A1C, ENA1 #### [address] [address] Calcium [Mass/Vol] 9.1 mg/dL Normal 8.4-10.2 [facility] ([place]) Comment on above: Performed By: #### F OL, B12, IFES, SPE #### [place] [address] #### MMA, TSH, A1C, ENA1 #### [address] [address] Chloride [Moles/Vol] 104 mmol/L Normal 98-107 [facility] ([place]) Comment on above: Performed By: #### F OL, B12, IFES, SPE #### [place] [address] #### MMA, TSH, A1C, ENA1 #### [address] [address] CO2 [Moles/Vol] 27 mmol/L Normal 23-31 [facility] ([place]) Comment on above: Performed By: #### F OL, B12, IFES, SPE #### [place] [address] #### MMA, TSH, A1C, ENA1 #### [address] [address] Creatinine [Mass/Vol] 0.91 mg/dL Normal 0.70-1.30 [facility] ([place]) Comment on above: Performed By: #### F OL, B12, IFES, SPE #### [place] [address] #### MMA, TSH, A1C, ENA1 #### [address] [address] Electrolyte Balance 9.0 mEq/L Normal 4.0-15.0 [facility] ([place]) Comment on above: Performed By: #### F OL, B12, IFES, SPE #### [place] [address] #### MMA, TSH, A1C, ENA1 #### [address] [address] Globulin 2.8 G/dL Normal [facility] ([place]) Comment on above: Performed By: #### F OL, B12, IFES, SPE #### [place] [address] #### MMA, TSH, A1C, ENA1 #### [address] [address] Glucose [Mass/Vol] 95 mg/dL Normal 83-110 [facility] ([place]) Comment on above: Performed By: #### F OL, B12, IFES, SPE #### [place] [address] #### MMA, TSH, A1C, ENA1 #### [address] [address] Potassium [Moles/Vol] 3.9 mmol/L Normal 3.5-5.1 [facility] ([place]) Comment on above: Performed By: #### F OL, B12, IFES, SPE #### [place] [address] #### MMA, TSH, A1C, ENA1 #### [address] [address] Sodium [Moles/Vol] 140 mmol/L Normal 136-145 [facility] ([place]) Comment on above: Performed By: #### F OL, B12, IFES, SPE #### [place] [address] #### MMA, TSH, A1C, ENA1 #### [address] [address] Total Protein 6.8 G/dL Normal 6.4-8.2 [facility] ([place]) Comment on above: Performed By: #### F OL, B12, IFES, SPE #### [address] [address] #### MMA, TSH, A1C, ENA1 #### [address] [address] Urea nitrogen [Mass/Vol] 20 mg/dL High 7-18 [facility] ([place]) Comment on above: Performed By: #### F OL, B12, IFES, SPE #### [address] [address] #### MMA, TSH, A1C, ENA1 #### [place] [address] [place], [place] [address] LABORATORYOrdered By: SYSTEM SYSTEM on 01-18-2024 Albumin BCP dye [Mass/Vol] 4.0 G/dL Normal 3.4 - 4.8 G/dL AO ADM SS Albumin/Globulin [Mass ratio] 1.4 {ratio} Normal 1.1 - 2.5 ratio AO ADM SS ALP [Catalytic activity/Vol] 85 U/L Normal 40 - 135 U/L AO ADM SS ALT With P-5'-P [Catalytic activity/Vol] 25 U/L Normal 16 - 63 U/L AO ADM SS AST With P-5'-P [Catalytic activity/Vol] 16 U/L Normal 10 - 40 U/L AO ADM SS Basophil, Absolute 0.1 103/mcL Normal 0.0 - 0.2 10^3/mcL AO Workflow SS Basophils/100 WBC (Bld) 0.7 % Normal 0.0 - 2.5 % AO Workflow SS Bilirubin [Mass/Vol] 1.9 mg/dL High 0.2 - 1 .0 mg/dL AO ADM SS Comment on above: Interpretive Data: U se of this assay is not recommended for patients undergoing treatment with eltrombopag due to the potential for falsely elevated results. Calcium [Mass/Vol] 9.1 mg/dL Normal 8.4 - 10. 2 mg/dL AO ADM SS Chloride [Moles/Vol] 104 mmol/L Normal 98 - 10 7 mmol/L AO ADM SS CO2 [Moles/Vol] 27 mmol/L Normal 23 - 31 mmol/L AO ADM SS Creatinine [Mass/Vol] 0.91 mg/dL Normal 0.70 - 1.30 mg/dL AO ADM SS Electrolyte Balance 9.0 mEq/L Normal 4.0 - 15 .0 mEq/L AO ADM SS Eosinophil, Absolute 0.2 103/mcL Normal 0.0 - 0 .4 10^3/mcL AO Workflow SS Eosinophils/100 WBC (Bld) 2.0 % Normal 0.0 - 7.0 % AO Workflow SS Erythrocyte distribution width (RBC) [Ratio] 13.8 % Normal 11.5 - 14.5 % AO Workflow SS GFR/1.73 sq M.predicted among blacks MDRD (S/P/Bld) [Vol rate/Area] 98 ml/min/1.73sqm Invalid Interpretation Code AO Chemistry S Comment on above: Interpretive Data: GFR Population mean for , Non- Americans Ages 20-29 = 116 mL/min/1.73 sq.m. Ages 30-39 = 107 mL/min/1.73 sq.m. Ages 40-49 = 99 mL/min/1.73 sq.m. Ages 50-59 = 93 mL/min/1.73 sq.m. Ages 60-69 = 85 mL/min/1.73 sq.m. Ages 70+ = 75 mL/min/1.73 sq.m. Chronic Kidney Disease: Less than 60 mL/min/1.73 square meters End Stage Renal Disease: Less than 15 mL/min/1.73 square meters GFR/1.73 sq M.predicted among non-blacks MDRD (S/P/Bld) [Vol rate/Area] 81 ml/min/1.73sqm Invalid Interpretation Code AO Chemistry S Comment on above: Interpretive Data: GFR Population mean for , Non- Americans Ages 20-29 = 116 mL/min/1.73 sq.m. Ages 30-39 = 107 mL/min/1.73 sq.m. Ages 40-49 = 99 mL/min/1.73 sq.m. Ages 50-59 = 93 mL/min/1.73 sq.m. Ages 60-69 = 85 mL/min/1.73 sq.m. Ages 70+ = 75 mL/min/1.73 sq.m. Chronic Kidney Disease: Less than 60 mL/min/1.73 square meters End Stage Renal Disease: Less than 15 mL/min/1.73 square meters Globulin 2.8 G/dL Invalid Interpretation Code AO ADM SS Glucose [Mass/Vol] 82 mg/dL Invalid Interpretation Code AO Chemistry S Comment on above: Interpretive Data: E stimated average glucose (eAG) is a calculated value from Hemoglobin A1C and is open claims representative of the average blood glucose level in the last 2-3 month period. Normal range: less than 114 mg/dL Glucose [Mass/Vol] 95 mg/dL Normal 83 - 110 mg/dL AO ADM SS HbA1c (Bld) [Mass fraction] 4.5 % Normal 4.3 - 6.4 % AO ADM SS Hematocrit (Bld) [Volume fraction] 42.6 % Normal 42.0 - 52.0 % AO Workflow SS Hemoglobin (Bld) [Mass/Vol] 14.5 G/dL Normal 14.0 - 18.0 G/dL AO Workflow SS Lymphocyte, Absolute 2.0 103/mcL Normal 0.8 - 3 .9 10^3/mcL AO Workflow SS Lymphocytes/100 WBC (Bld) 22.7 % Normal 10.0 - 50.0 % AO Workflow SS MCH (RBC) [Entitic mass] 31.1 pg Normal 27.0 - 31.2 pg AO Workflow SS MCHC 34.1 G/dL Normal 31.8 - 35.4 G/dL AO Workflow SS MCV (RBC) [Entitic vol] 91.2 fL Normal 80.0 - 94.0 fL AO Workflow SS Monocyte, Absolute 0.7 103/mcL Normal 0.2 - 1.0 10^3/mcL AO Workflow SS Monocytes/100 WBC (Bld) 8.3 % Normal 1.7 - 13.0 % AO Workflow SS Neutrophil, Absolute 5.7 103/mcL Normal 2.9 - 6 .2 10^3/mcL AO Workflow SS Neutrophils/100 WBC (Bld) 66.3 % Normal 37.0 - 80.0 % AO Workflow SS Platelet mean volume (Bld) [Entitic vol] 7.3 fL Low 7.4 - 10.4 fL AO Workflow SS Platelets (Bld) [#/Vol] 203 103/mcL Normal 130 - 400 10^3/mcL AO Workflow SS Potassium [Moles/Vol] 3.9 mmol/L Normal 3.5 - 5.1 mmol/L AO ADM SS Protein [Mass/Vol] 6.8 G/dL Normal 6.4 - 8.2 G/dL AO ADM SS RBC (Bld) [#/Vol] 4.67 106/mcL Normal 4.04 - 6.1 3 10^6/mcL AO Workflow SS Sodium [Moles/Vol] 140 mmol/L Normal 136 - 145 mmol/L AO ADM SS TSH Qn 1.30 m[IU]/L Normal 0.36 - 3.74 mcIU/mL AO ADM SS Urea nitrogen [Mass/Vol] 20 mg/dL High 7 - 18 mg/dL AO ADM SS Urea nitrogen/Creatinine [Mass ratio] 22 ratio Normal 7 - 27 ratio AO ADM SS Uric Acid Lvl 4.0 mg/dL Normal 3.5 - 7.2 mg/dL AO ADM SS WBC (Bld) [#/Vol] 8.6 103/mcL Normal 4.6 - 10.8 10^3/mcL AO Workflow SS LABORATORYOrdered By: Lachelle Rod on 01-18-2024 Cholesterol [Mass/Vol] 124 mg/dL Normal 0 - 2 00 mg/dL AO ADM SS Comment on above: Interpretive Data: C holesterol Reference Interval: Less than 200 Desirable 200-239 Borderline high risk 240 and above High risk Cholesterol in HDL [Mass/Vol] 40 mg/dL Normal 40 - 60 mg/dL AO ADM SS Cholesterol in LDL [Mass/Vol] 69 mg/dL Normal 0 - 130 mg/dL AO ADM SS Triglyceride [Mass/Vol] 76 mg/dL Normal 0 - 150 mg/dL AO ADM SS Comment on above: Interpretive Data: T riglyceride Reference Interval: Less than 150 Normal 150-199 Borderline high risk 200-499 High risk 500 or higher Very high risk LIPIDon 01-18-2024 Cholesterol [Mass/Vol] 124 mg/dL Normal 0-200 [facility] ([place]) Comment on above: Result Comment: Chol esterol Reference Interval: Less than 200 Desirable 200-239 Borderline high risk 240 and above High risk Performed By: #### F OL, B12, IFES, SPE #### [address] [address] #### MMA, TSH, A1C, ENA1 #### [address] [address] Cholesterol in HDL [Mass/Vol] 40 mg/dL Normal 40-60 [facility] ([place]) Comment on above: Performed By: #### F OL, B12, IFES, SPE #### [place] [address] #### MMA, TSH, A1C, ENA1 #### [address] [address] Cholesterol in LDL [Mass/Vol] 69 mg/dL Normal 0-130 [facility] ([place]) Comment on above: Performed By: #### F OL, B12, IFES, SPE #### [place] [address] #### MMA, TSH, A1C, ENA1 #### [address] [address] Triglyceride [Mass/Vol] 76 mg/dL Normal 0-150 [facility] ([place]) Comment on above: Result Comment: Trig lyceride Reference Interval: Less than 150 Normal 150-199 Borderline high risk 200-499 High risk 500 or higher Very high risk Performed By: #### F OL, B12, IFES, SPE #### [place] [address] #### MMA, TSH, A1C, ENA1 #### [address] [address] TSHon 01-18-2024 TSH Qn 1.30 m[IU]/L Normal 0.36-3.74 [facility] ([place]) Comment on above: Performed By: #### F OL, B12, IFES, SPE #### [place] [address] #### MMA, TSH, A1C, ENA1 #### [address] [address] URICon 01-18-2024 Uric Acid Lvl 4.0 mg/dL Normal 3.5-7.2 [facility] ([place]) Comment on above: Performed By: #### F OL, B12, IFES, SPE #### [place] [address] #### MMA, TSH, A1C, ENA1 #### [address] [address] 12 Lead EKGon 01-08-2024 12 Lead EKG [facility] [address] [place] [address] 12 Lead EKG 01/08/24 1448 MR#: [id number] Acct: [id number] Name: JUSTA MARIANO Rep #: [id number] : 1945 78 From: Maddie Rossi MD Attending Dr: Status: DEP ER Ordering Dr: Kev Cervantes DO Date: 01/08/24 Location: ED Sex: M C Admitted: Test Reason : PALPS Blood Pressure : / mmHG Vent. Rate : 056 BPM Atrial Rate : 056 BPM P-R Int : 208 ms QRS Dur : 098 ms QT Int : 434 ms P-R-T Axes : 040 007 019 degrees QTc Int : 418 ms Sinus bradycardia Otherwise normal ECG Confirmed by JEFF GO, SARA ([id number]), film editor ALYSSA GARCIA ([id number]) on 01/13/2024 6:49:35 AM Referred By: ELSI/JAVIER Confirmed By:YOLI ROSSI MD 01/13/24 0649 Date Maddie Rossi MD CC: Dr. Jhonatan Merino DO; Dr. Kev Cervantes DO Signed Normal [facility] BNP,B-Type NATRIURETIC PEPTI Justen 01-08-2024 Natriuretic peptide B (Bld) [Mass/Vol] 58.1 pg/mL Normal 0-100 [facility] Comment on above: Performed By: #### L 503.6620 ####[facility] [id number] [place], [address] Basic Metabolic Profile (BMP )on 01-08-2024 BUN/CRE 21.2 RATIO High 10-20 [facility] Comment on above: Order Comment: 1 Y Performed By: #### L 501.5419, L100.0100, L501.5200, L501.9520, L500.2500 #### [facility] [address] [place], [address] CA,Total 9.3 mg/dL Normal 8.5-10.1 [facility] Comment on above: Order Comment: 1 Y Performed By: #### L 501.5425, L100.0100, L501.5200, L501.9520, L500.2500 #### [facility] [address] [place], [address] Chloride [Moles/Vol] 106 mmol/L Normal 98-107 [facility] Comment on above: Order Comment: 1 Y Performed By: #### L 501.5425, L100.0100, L501.5200, L501.9520, L500.2500 #### [facility] [address] [place], [address] CO2 [Moles/Vol] 26.0 mmol/L Normal 21.0-32.0 [facility] Comment on above: Order Comment: 1 Y Performed By: #### L 501.5425, L100.0100, L501.5200, L501.9520, L500.2500 #### [facility] [address] [place], [address] Creatinine [Mass/Vol] 1.04 mg/dL Normal 0.70-1.30 [facility] Comment on above: Order Comment: 1 Y Result Comment: The validity of the calculated GFR GFRAA in patients over 70 years has not been determined. Clinical correlation is essential. Performed By: #### L 501.5425, L100.0100, L501.5200, L501.9520, L500.2500 #### [facility] [address] [place], [address] ECRCL 60.44 ml/min Normal [facility] Comment on above: Order Comment: 1 Y Performed By: #### L 501.5425, L100.0100, L501.5200, L501.9520, L500.2500 #### [facility] [address] [place], [address] EST GFR - AA 89 mL/min Normal >60 [facility] Comment on above: Order Comment: 1 Y Result Comment: Afri can [place]ian GFR Calc Performed By: #### L 501.5425, L100.0100, L501.5200, L501.9520, L500.2500 #### [facility] [address] [place], [address] GAP 6 Normal 5-15 [facility] Comment on above: Order Comment: 1 Y Performed By: #### L 501.5425, L100.0100, L501.5200, L501.9520, L500.2500 #### [facility] [address] [place], [address] GFR/1.73 sq M.predicted among non-blacks MDRD (S/P/Bld) [Vol rate/Area] 73 mL/min/{1.73_m2} Normal >60 [facility] Comment on above: Order Comment: 1 Y Result Comment: Non- GFR Calc Performed By: #### L 501.5425, L100.0100, L501.5200, L501.9520, L500.2500 #### [facility] [address] [place], [address] Glucose [Mass/Vol] 142 mg/dL High 74-106 [facility] Comment on above: Order Comment: 1 Y Result Comment: Fast ing Glucose result greater than or equal to 126 mg/dL suggests DIABETES MELLITUS per A.D.A. criteria. Performed By: #### L 501.5425, L100.0100, L501.5200, L501.9520, L500.2500 #### [facility] [address] [place], [address] Potassium [Moles/Vol] 3.8 mmol/L Normal 3.5-5.1 [facility] Comment on above: Order Comment: 1 Y Performed By: #### L 501.5425, L100.0100, L501.5200, L501.9520, L500.2500 #### [facility] [address] [place], [address] Sodium [Moles/Vol] 138 mmol/L Normal 136-145 [facility] Comment on above: Order Comment: 1 Y Performed By: #### L 501.5425, L100.0100, L501.5200, L501.9520, L500.2500 #### [facility] [address] [place], [address] Urea nitrogen [Mass/Vol] 22 mg/dL High 7-18 [facility] Comment on above: Order Comment: 1 Y Performed By: #### L 501.5425, L100.0100, L501.5200, L501.9520, L500.2500 #### [facility] [address] [place], [address] CBC W/Diff, Automatedon 12-21 Absolute Lymph 2.54 X10 3/uL Normal 0.83-4.51 [facility] Comment on above: Performed By: #### L 501.5425, L100.0100, L501.5200, L501.9520, L500.2500 #### [facility] [address] [place], [address] Absolute Neut 5.2 X10 3/uL Normal 2.0-7.7 [facility] Comment on above: Performed By: #### L 501.5425, L100.0100, L501.5200, L501.9520, L500.2500 #### [facility] [address] [place], [address] Basophils/100 WBC (Bld) 0.8 % Normal 0-1 [facility] Comment on above: Performed By: #### L 501.5425, L100.0100, L501.5200, L501.9520, L500.2500 #### [facility] [address] [place], [address] Eosinophils/100 WBC (Bld) 2.9 % Normal 0-5 [facility] Comment on above: Performed By: #### L 501.5425, L100.0100, L501.5200, L501.9520, L500.2500 #### [facility] [address] [place], [address] Erythrocyte distribution width (RBC) [Ratio] 12.5 % Normal 11.6-14.6 [facility] Comment on above: Performed By: #### L 501.5425, L100.0100, L501.5200, L501.9520, L500.2500 #### [facility] [address] [place], [address] Hematocrit (Bld) [Volume fraction] 43.8 % Normal 40-54 [facility] Comment on above: Performed By: #### L 501.5425, L100.0100, L501.5200, L501.9520, L500.2500 #### [facility] [address] [place], [address] Hemoglobin (Bld) [Mass/Vol] 14.4 g/dL Normal 13.0-16.5 [facility] Comment on above: Performed By: #### L 501.5425, L100.0100, L501.5200, L501.9520, L500.2500 #### [facility] [address] [place], [address] IG% 0.600 Normal 0.0-0.9 [facility] Comment on above: Result Comment: IG% - Immature Granulocytes (promyelocytes, myelocytes and metamyelocytes) > 1% indicates that a LEFT SHIFT is Present. Performed By: #### L 501.5425, L100.0100, L501.5200, L501.9520, L500.2500 #### [facility] [address] [place], [address] Lymphocytes/100 WBC (Bld) 28.4 % Normal 19-41 [facility] Comment on above: Performed By: #### L 501.5425, L100.0100, L501.5200, L501.9520, L500.2500 #### [facility] [address] [place], [address] MCH (RBC) [Entitic mass] 30.4 pg Normal 27.0-32.0 [facility] Comment on above: Performed By: #### L 501.5425, L100.0100, L501.5200, L501.9520, L500.2500 #### [facility] [address] [place], [address] MCHC (RBC) [Mass/Vol] 32.9 g/dL Normal 32-36 [facility] Comment on above: Performed By: #### L 501.5425, L100.0100, L501.5200, L501.9520, L500.2500 #### [facility] [address] [place], [address] MCV (RBC) [Entitic vol] 92.4 fL Normal 80-94 [facility] Comment on above: Performed By: #### L 501.5425, L100.0100, L501.5200, L501.9520, L500.2500 #### [facility] [address] [place], [address] Monocytes/100 WBC (Bld) 9.6 % Normal 0-10 [facility] Comment on above: Performed By: #### L 501.5425, L100.0100, L501.5200, L501.9520, L500.2500 #### [facility] [address] [place], [address] Neutrophils/100 WBC (Bld) 57.7 % Normal 47-70 [facility] Comment on above: Performed By: #### L 501.5425, L100.0100, L501.5200, L501.9520,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 ([place]) Comment on above: Performed By: #### F OL, B12, IFES, SPE #### [place] [address] #### MMA, TSH, A1C, ENA1 #### [address] [address] Eosinophil, Absolute 0.2 10 3/mcL Normal 0.0-0.4 [facility] ([place]) Comment on above: Performed By: #### F OL, B12, IFES, SPE #### [place] [address] #### MMA, TSH, A1C, ENA1 #### [address] [address] Eosinophils/100 WBC (Bld) 3.0 % Normal 0.0-7.0 [facility] ([place]) Comment on above: Performed By: #### F OL, B12, IFES, SPE #### [place] [address] #### MMA, TSH, A1C, ENA1 #### [address] [address] Lymphocyte, Absolute 1.9 10 3/mcL Normal 0.8-3.9 [facility] ([place]) Comment on above: Performed By: #### F OL, B12, IFES, SPE #### [place] [address] #### MMA, TSH, A1C, ENA1 #### [address] [address] Lymphocytes/100 WBC (Bld) 27.4 % Normal 10.0-50.0 [facility] ([place]) Comment on above: Performed By: #### F OL, B12, IFES, SPE #### [place] [address] #### MMA, TSH, A1C, ENA1 #### [address] [address] Monocyte, Absolute 0.7 10 3/mcL Normal 0.2-1.0 [facility] ([place]) Comment on above: Performed By: #### F OL, B12, IFES, SPE #### [address] [address] #### MMA, TSH, A1C, ENA1 #### [address] [address] Monocytes/100 WBC (Bld) 10.6 % Normal 1.7-13.0 [facility] ([place]) Comment on above: Performed By: #### F OL, B12, IFES, SPE #### [address] [address] #### MMA, TSH, A1C, ENA1 #### [address] [address] Neutrophils/100 WBC (Bld) 58.1 % Normal 37.0-80.0 [facility] ([place]) Comment on above: Performed By: #### F OL, B12, IFES, SPE #### [place] [address] #### MMA, TSH, A1C, ENA1 #### [address] [address] .GFRon 07-18-2023 GFR Non- 63 ml/min/1.73sqm Normal [facility] ([place]) Comment on above: Result Comment: GFR Population mean for , Non- Americans Ages 20-29 = 116 mL/min/1.73 sq.m. Ages 30-39 = 107 mL/min/1.73 sq.m. Ages 40-49 = 99 mL/min/1.73 sq.m. Ages 50-59 = 93 mL/min/1.73 sq.m. Ages 60-69 = 85 mL/min/1.73 sq.m. Ages 70+ = 75 mL/min/1.73 sq.m. Chronic Kidney Disease: Less than 60 mL/min/1.73 square meters End Stage Renal Disease: Less than 15 mL/min/1.73 square meters Performed By: #### F OL, B12, IFES, SPE #### [place] [address] #### MMA, TSH, A1C, ENA1 #### [address] [address] GFR 76 ml/min/1.73sqm Normal [facility] ([place]) Comment on above: Result Comment: GFR Population mean for , Non- Americans Ages 20-29 = 116 mL/min/1.73 sq.m. Ages 30-39 = 107 mL/min/1.73 sq.m. Ages 40-49 = 99 mL/min/1.73 sq.m. Ages 50-59 = 93 mL/min/1.73 sq.m. Ages 60-69 = 85 mL/min/1.73 sq.m. Ages 70+ = 75 mL/min/1.73 sq.m. Chronic Kidney Disease: Less than 60 mL/min/1.73 square meters End Stage Renal Disease: Less than 15 mL/min/1.73 square meters Performed By: #### F OL, B12, IFES, SPE #### [place] [address] #### MMA, TSH, A1C, ENA1 #### [address] [address] .NEUABSon 07-18-2023 Neutrophil, Absolute 3.9 10 3/mcL Normal 2.9-6.2 [facility] ([place]) Comment on above: Performed By: #### F OL, B12, IFES, SPE #### [place] [address] #### MMA, TSH, A1C, ENA1 #### [address] [address] A1Con 07-18-2023 HbA1c (Bld) [Mass fraction] 5.2 % Normal 4.3-6.4 [facility] ([place]) Comment on above: Performed By: #### F OL, B12, IFES, SPE #### [place] [address] #### MMA, TSH, A1C, ENA1 #### [address] [address] CBCon 07-18-2023 Erythrocyte distribution width (RBC) [Ratio] 13.0 % Normal 11.5-14.5 [facility] ([place]) Comment on above: Performed By: #### F OL, B12, IFES, SPE #### [place] [address] #### MMA, TSH, A1C, ENA1 #### [place] [address] Hematocrit (Bld) [Volume fraction] 42.5 % Normal 42.0-52.0 [facility] ([place]) Comment on above: Performed By: #### F OL, B12, IFES, SPE #### [place] [address] #### MMA, TSH, A1C, ENA1 #### [place] [address] Hgb 15.0 G/dL Normal 14.0-18.0 [facility] ([place]) Comment on above: Performed By: #### F OL, B12, IFES, SPE #### [place] [address] #### MMA, TSH, A1C, ENA1 #### [place] [address] MCH (RBC) [Entitic mass] 31.5 pg High 27.0-31.2 [facility] ([place]) Comment on above: Performed By: #### F OL, B12, IFES, SPE #### [place] [address] #### MMA, TSH, A1C, ENA1 #### [place] [address] MCHC 35.2 G/dL Normal 31.8-35.4 [facility] ([place]) Comment on above: Performed By: #### F OL, B12, IFES, SPE #### [place] [address] #### MMA, TSH, A1C, ENA1 #### [address] [address] MCV (RBC) [Entitic vol] 89.7 fL Normal 80.0-94.0 [facility] ([place]) Comment on above: Performed By: #### F OL, B12, IFES, SPE #### [place] [address] #### MMA, TSH, A1C, ENA1 #### [address] [address] Platelet 214 10 3/mcL Normal 130-400 [facility] ([place]) Comment on above: Performed By: #### F OL, B12, IFES, SPE #### [place] [address] #### MMA, TSH, A1C, ENA1 #### [address] [address] Platelet mean volume (Bld) [Entitic vol] 7.1 fL Low 7.4-10.4 [facility] ([place]) Comment on above: Performed By: #### F OL, B12, IFES, SPE #### [place] [address] #### MMA, TSH, A1C, ENA1 #### [address] [address] RBC 4.74 10 6/mcL Normal 4.04-6.13 [facility] ([place]) Comment on above: Performed By: #### F OL, B12, IFES, SPE #### [place] [address] #### MMA, TSH, A1C, ENA1 #### [address] [address] WBC 6.8 10 3/mcL Normal 4.6-10.8 [facility] ([place]) Comment on above: Performed By: #### F OL, B12, IFES, SPE #### [place] [address] #### MMA, TSH, A1C, ENA1 #### [address] [address] CMPon 07-18-2023 Albumin Level 3.5 G/dL Normal 3.4-4.8 [facility] ([place]) Comment on above: Performed By: #### F OL, B12, IFES, SPE #### [place] [address] #### MMA, TSH, A1C, ENA1 #### [address] [address] Albumin/Globulin [Mass ratio] 1.2 {ratio} Normal 1.1-2.5 [facility] ([place]) Comment on above: Performed By: #### F OL, B12, IFES, SPE #### [place] [address] #### MMA, TSH, A1C, ENA1 #### [address] [address] ALP [Catalytic activity/Vol] 90 U/L Normal 40-135 [facility] ([place]) Comment on above: Performed By: #### F OL, B12, IFES, SPE #### [place] [address] #### MMA, TSH, A1C, ENA1 #### [address] [address] ALT [Catalytic activity/Vol] 26 U/L Normal 16-63 [facility] ([place]) Comment on above: Performed By: #### F OL, B12, IFES, SPE #### [place] [address] #### MMA, TSH, A1C, ENA1 #### [address] [address] AST [Catalytic activity/Vol] 16 U/L Normal 10-40 [facility] ([place]) Comment on above: Performed By: #### F OL, B12, IFES, SPE #### [place] [address] #### MMA, TSH, A1C, ENA1 #### [address] [address] Bili Total 1.2 mg/dL High 0.2-1.0 [facility] ([place]) Comment on above: Result Comment: Use of this assay is not recommended for patients undergoing treatment with eltrombopag due to the potential for falsely elevated results. Performed By: #### F OL, B12, IFES, SPE #### [place] [address] #### MMA, TSH, A1C, ENA1 #### [address] [address] BUN/Creatinine Ratio 14 ratio Normal 7-27 [facility] ([place]) Comment on above: Performed By: #### F OL, B12, IFES, SPE #### [place] [address] #### MMA, TSH, A1C, ENA1 #### [address] [address] Calcium [Mass/Vol] 8.7 mg/dL Normal 8.4-10.2 [facility] ([place]) Comment on above: Performed By: #### F OL, B12, IFES, SPE #### [place] [address] #### MMA, TSH, A1C, ENA1 #### [address] [address] Chloride [Moles/Vol] 105 mmol/L Normal 98-107 [facility] ([place]) Comment on above: Performed By: #### F OL, B12, IFES, SPE #### [place] [address] #### MMA, TSH, A1C, ENA1 #### [address] [address] CO2 [Moles/Vol] 30 mmol/L Normal 23-31 [facility] ([place]) Comment on above: Performed By: #### F OL, B12, IFES, SPE #### [place] [address] #### MMA, TSH, A1C, ENA1 #### [address] [address] Creatinine [Mass/Vol] 1.13 mg/dL Normal 0.70-1.30 [facility] ([place]) Comment on above: Performed By: #### F OL, B12, IFES, SPE #### [place] [address] #### MMA, TSH, A1C, ENA1 #### [address] [address] Electrolyte Balance 4.0 mEq/L Normal 4.0-15.0 [facility] ([place]) Comment on above: Performed By: #### F OL, B12, IFES, SPE #### [place] [address] #### MMA, TSH, A1C, ENA1 #### [address] [address] Globulin 2.9 G/dL Normal [facility] ([place]) Comment on above: Performed By: #### F OL, B12, IFES, SPE #### [place] [address] #### MMA, TSH, A1C, ENA1 #### [address] [address] Glucose [Mass/Vol] 102 mg/dL Normal 83-110 [facility] ([place]) Comment on above: Performed By: #### F OL, B12, IFES, SPE #### [place] [address] #### MMA, TSH, A1C, ENA1 #### [address] [address] Potassium [Moles/Vol] 4.4 mmol/L Normal 3.5-5.1 [facility] ([place]) Comment on above: Performed By: #### F OL, B12, IFES, SPE #### [place] [address] #### MMA, TSH, A1C, ENA1 #### [address] [address] Sodium [Moles/Vol] 139 mmol/L Normal 136-145 [facility] ([place]) Comment on above: Performed By: #### F OL, B12, IFES, SPE #### [place] [address] #### MMA, TSH, A1C, ENA1 #### [address] [address] Total Protein 6.4 G/dL Normal 6.4-8.2 [facility] ([place]) Comment on above: Performed By: #### F OL, B12, IFES, SPE #### [place] [address] #### MMA, TSH, A1C, ENA1 #### [address] [address] Urea nitrogen [Mass/Vol] 16 mg/dL Normal 7-18 [facility] ([place]) Comment on above: Performed By: #### F OL, B12, IFES, SPE #### [place] [address] #### MMA, TSH, A1C, ENA1 #### [address] [address] Bo 07-18-2023 Ferritin [Mass/Vol] 209.0 ng/mL Normal 26.0-388.0 [facility] ([place]) Comment on above: Performed By: #### F OL, B12, IFES, SPE #### [place] [address] #### MMA, TSH, A1C, ENA1 #### [address] [address] LIPIDon 07-18-2023 Cholesterol [Mass/Vol] 126 mg/dL Normal 0-200 [facility] ([place]) Comment on above: Result Comment: Chol esterol Reference Interval: Less than 200 Desirable 200-239 Borderline high risk 240 and above High risk Performed By: #### F OL, B12, IFES, SPE #### [address] [address] #### MMA, TSH, A1C, ENA1 #### [address] [address] Cholesterol in HDL [Mass/Vol] 39 mg/dL Low 40-60 [facility] ([place]) Comment on above: Performed By: #### F OL, B12, IFES, SPE #### [place] [address] #### MMA, TSH, A1C, ENA1 #### [address] [address] Cholesterol in LDL [Mass/Vol] 72 mg/dL Normal 0-130 [facility] ([place]) Comment on above: Performed By: #### F OL, B12, IFES, SPE #### [place] [address] #### MMA, TSH, A1C, ENA1 #### [address] [address] Triglyceride [Mass/Vol] 76 mg/dL Normal 0-150 [facility] ([place]) Comment on above: Result Comment: Trig lyceride Reference Interval: Less than 150 Normal 150-199 Borderline high risk 200-499 High risk 500 or higher Very high risk Performed By: #### F OL, B12, IFES, SPE #### [place] [address] #### MMA, TSH, A1C, ENA1 #### [address] [address] PSAon 07-18-2023 Prostate Specific Antigen 8.88 ng/mL High 0.00-4.00 [facility] ([place]) Comment on above: Performed By: #### F OL, B12, IFES, SPE #### [place] [address] #### MMA, TSH, A1C, ENA1 #### [address] [address] URICon 07-18-2023 Uric Acid Lvl 4.2 mg/dL Normal 3.5-7.2 [facility] ([place]) Comment on above: Performed By: #### F OL, B12, IFES, SPE #### [address] [address] #### MMA, TSH, A1C, ENA1 #### [address] [address] METon 04-15-2023 Methylmalonic Acid, Blood 0.28 umol/l Normal <=0.40 [facility] ([place]) Comment on above: Result Comment: This test was developed and its performance characteristics determined by [facility] ([facility]). It has not been cleared or approved by the FDA. [facility] is regulated under CLIA as qualified to perform high-complexity testing. This test is used for clinical purposes. It should not be regarded as investigational or for research. Performed By: [place] [id number] [place] [address] Perinatal Instructor: Javier Biggs III, M.D. CLIA#: [id number] Performed By: #### F OL, B12, IFES, SPE #### [place] [address] #### MMA, TSH, A1C, ENA1 #### [address] [address] ENA1on 04-13-2023 [facility] <0.2 Normal <1.0 [facility] ([place]) Comment on above: Result Comment: Anti -centromere antibody is used as in aid in diagnosis of systemic sclerosis. Clinical correlation is required. Test Methodology: Multiplex flow immunoassay. Performed By: [place] [id number] [place] [id number] Perinatal Instructor: Javier Biggs III, M.D. CLIA#: [id number] Performed By: #### F OL, B12, IFES, SPE #### [place] [id number] #### MMA, TSH, A1C, ENA1 #### [address] [address] Centromere Ab Qualitative Negative Normal Negative [facility] ([place]) Comment on above: Result Comment: Perf ormed By: [place] [address] Perinatal Instructor: Javier Biggs III, M.D. CLIA#: [id number] Performed By: #### F OL, B12, IFES, SPE #### [address] [address] #### MMA, TSH, A1C, ENA1 #### [address] [address] Chromatin Ab Qualitative Negative Normal Negative [facility] ([place]) Comment on above: Result Comment: Perf ormed By: [place] [address] Perinatal Instructor: Javier Biggs III, M.D. CLIA#: [id number] Performed By: #### F OL, B12, IFES, SPE #### [place] [address] #### MMA, TSH, A1C, ENA1 #### [address] [address] Chromatin Antibody <0.2 Normal <1.0 [facility] ([place]) Comment on above: Result Comment: Test Methodology: Multiplex flow immunoassay. Anti-chromatin antibody is used as an aid in diagnosis of systemic lupus erythematosus. Clinical correlation is required. Test Methodology: Multiplex flow immunoassay. Performed By: [place] [address] Perinatal Instructor: Javier Biggs III, M.D. CLIA#: [id number] Performed By: #### F OL, B12, IFES, SPE #### [address] [address] #### MMA, TSH, A1C, ENA1 #### [address] [address] EILEEN 1 Antibody <0.2 Normal <1.0 [facility] ([place]) Comment on above: Result Comment: Perf ormed By: [place] [address] Perinatal Instructor: Javier Biggs III, M.D. CLIA#: [id number] Performed By: #### F OL, B12, IFES, SPE #### [place] [address] #### MMA, TSH, A1C, ENA1 #### [address] [address] EILEEN 1 Antibody Qual Negative Normal Negative [facility] ([place]) Comment on above: Result Comment: Anti -EILEEN-1 antibody is used as an aid in diagnosis of polymyositis and dermatomyositis especially with pulmonary involvement. A negative result cannot rule out polymyositis or dermatomyositis. Clinical correlation is required. Test Methodology: Multiplex flow immunoassay. Performed By: [place] [address] Perinatal Instructor: Javier Biggs III, M.D. CLIA#: [id number] Performed By: #### F OL, B12, IFES, SPE #### [place] [address] #### MMA, TSH, A1C, ENA1 #### [address] [address] Ribosomal MEAT BLENDER <0.2 Normal <1.0 [facility] [place]) Comment on above: Result Comment: Perf ormed By: [place] [address] Perinatal Instructor: Javier Biggs III, M.D. CLIA#: [id number] Performed By: #### F OL, B12, IFES, SPE #### [place] [address] #### MMA, TSH, A1C, ENA1 #### [address] [address] Ribosomal MEAT BLENDER Qualitative Negative Normal Negative [facility] ([place]) Comment on above: Result Comment: Anti -Ribosomal RNA (Ribosomal P) antibody is used as an aid in diagnosis of systemic autoimmune diseases especially systemic lupus erythematosus and mixed connective tissue disease. Cross-reactivity with Anti-rios antibody is not uncommon. Clinical correlation is required. Test Methodology: Multiplex flow immunoassay. Performed By: [place] [address] Perinatal Instructor: Javier Biggs III, M.D. CLIA#: [id number] Performed By: #### F OL, B12, IFES, SPE #### [address] [address] #### MMA, TSH, A1C, ENA1 #### [address] [address] MEAT BLENDER Antibody <0.2 Normal <1.0 [facility] ([place]) Comment on above: Result Comment: Anti -MEAT BLENDER antibody is used as an aid in diagnosis of systemic autoimmune diseases especially systemic lupus erythematosus and mixed connective tissue disease. Cross-reactivity with Anti-rios antibody is not uncommon. Clinical correlation is required. Test Methodology: Multiplex flow immunoassay. Performed By: [place] [address] Perinatal Instructor: Javier Biggs III, M.D. CLIA#: [id number] Performed By: #### F OL, B12, IFES, SPE #### [place] [address] #### MMA, TSH, A1C, ENA1 #### [address] [address] MEAT BLENDER Antibody Qualitative Negative Normal Negative [facility] ([place]) Comment on above: Result Comment: Perf ormed By: [place] [address] Perinatal Instructor: Javier Biggs III, M.D. CLIA#: [id number] Performed By: #### F OL, B12, IFES, SPE #### [place] [address] #### MMA, TSH, A1C, ENA1 #### [address] [address] Scleroderma Ab, IgG Qualitative Negative Normal Negative [facility] ([place]) Comment on above: Result Comment: Perf ormed By: [facility] [employer] [address] [place] [address] Perinatal Instructor: Javier Biggs III, M.D. CLIA#: [id number] Performed By: #### F OL, B12, IFES, SPE #### [place] [id number] #### MMA, TSH, A1C, ENA1 #### [address] [address] Scleroderma IgG Ab <0.2 Normal <1.0 [facility] ([place]) Comment on above: Result Comment: Scl- 70/Scleroderma antibody test is used as an aid in diagnosis of systemic sclerosis especially the diffuse cutaneous form. A negative result cannot rule out systemic sclerosis. The final interpretation should consider clinical picture and other test results such as anti-centromere antibody. Test Methodology: Multiplex flow immunoassay. Performed By: [facility] [employer] [facility] [place] [address] Perinatal Instructor: Javier Biggs III, M.D. CLIA#: [id number] Performed By: #### F OL, B12, IFES, SPE #### [place] [address] #### MMA, TSH, A1C, ENA1 #### [address] [address] Sm Antibody <0.2 Normal <1.0 [facility] ([place]) Comment on above: Result Comment: Perf ormed By: [facility] [employer] [address] [place] [address] Perinatal Instructor: Javier Biggs III, M.D. CLIA#: [id number] Performed By: #### F OL, B12, IFES, SPE #### [place] [address] #### MMA, TSH, A1C, ENA1 #### [address] [address] Sm Antibody Qual Negative Normal Negative [facility] ([place]) Comment on above: Result Comment: Anti -Sm (Rios) antibody is used as an aid in diagnosis of systemic lupus erythematosus and its presence is associated with renal disease. A negative result cannot rule out systemic lupus erythematosus. Clinical correlation is required. Test Methodology: Multiplex flow immunoassay. Performed By: [facility] [employer] [address] [place] [address] Perinatal Instructor: Javier Biggs III, M.D. CLIA#: [id number] Performed By: #### F OL, B12, IFES, SPE #### [place] [id number] #### MMA, TSH, A1C, ENA1 #### [address] [address] SS-A Antibody <0.2 Normal <1.0 [facility] [place]) Comment on above: Result Comment: Test Methodology: Multiplex flow immunoassay. Anti-SSA (anti-Ro) antibody is used as an aid in diagnosis of a variety of systemic autoimmune diseases, Sjogren's syndrome among others. Clinical correlation is required. Test Methodology: Multiplex flow immunoassay. Performed By: [facility] [place] [address] Perinatal Instructor: Javier Biggs III, M.D. CLIA#: [id number] Performed By: #### F OL, B12, IFES, SPE #### [place] [address] #### MMA, TSH, A1C, ENA1 #### [address] [address] SS-B Antibody <0.2 Normal <1.0 [facility] [place]) Comment on above: Result Comment: Anti -SSB (anti-La) antibody is used as an aid in diagnosis of a variety of systemic autoimmune diseases, especially for Sjogren's syndrome and systemic lupus erythematosus. Clinical correlation is required. Test Methodology: Multiplex flow immunoassay. Performed By: [facility] [place] [address] Perinatal Instructor: Javier Biggs III, M.D. CLIA#: [id number] Performed By: #### F OL, B12, IFES, SPE #### [place] [id number] #### MMA, TSH, A1C, ENA1 #### [address] [address] SSA Antibody Qualitative Negative Normal Negative [facility] ([place]) Comment on above: Result Comment: Perf ormed By: [facility] [employer] [address] [place] [address] Perinatal Instructor: Javier Biggs III, M.D. CLIA#: [id number] Performed By: #### F OL, B12, IFES, SPE #### [address] [address] #### MMA, TSH, A1C, ENA1 #### [address] [address] SSB Antibody Qualitative Negative Normal Negative [facility] ([place]) Comment on above: Result Comment: Perf ormed By: [facility] [employer] [address] [place] [address] [place] [id number] Perinatal Instructor: Javier Biggs III, M.D. CLIA#: [id number] Performed By: #### F OL, B12, IFES, SPE #### [place] [address] #### MMA, TSH, A1C, ENA1 #### [place] [address] IFESon 04-13-2023 IFES Interpretation Immunofixation electrophoresis of serum shows the presence of only polyclonal immunoglobulins (IgG,A,M,[place] and Lambda), No monoclonal protein detected. Normal [facility] ([place]) Comment on above: Result Comment: Elec tronically Signed by: KATHERYN HORN 04/13/2023 16:13 EST Performed By: #### F OL, B12, IFES, SPE #### [place] [address] #### MMA, TSH, A1C, ENA1 #### [address] [address] SPEon 04-13-2023 SPE Interpretation Normal serum protein electrophoresis pattern. No abnormality detected. Normal [facility]) Comment on above: Result Comment: Elec tronically Signed by: KATHERYN HORN 04/13/2023 16:13 EST Performed By: #### F OL, B12, IFES, SPE #### [place] [address] #### MMA, TSH, A1C, ENA1 #### [address] [address] Albumin 3.7 G/dL Normal 3.3-5.0 [facility] ([place]) Comment on above: Performed By: #### F OL, B12, IFES, SPE #### [place] [address] #### MMA, TSH, A1C, ENA1 #### [address] [address] Alpha 1 0.2 G/dL Normal 0.1-0.4 [facility] ([place]) Comment on above: Performed By: #### F OL, B12, IFES, SPE #### [place] [address] #### MMA, TSH, A1C, ENA1 #### [place] [address] Alpha 2 1.0 G/dL Normal 0.6-1.2 [facility] ([place]) Comment on above: Performed By: #### F OL, B12, IFES, SPE #### [place] [address] #### MMA, TSH, A1C, ENA1 #### [address] [address] Beta 0.9 G/dL Normal 0.6-1.3 [facility] ([place]) Comment on above: Performed By: #### F OL, B12, IFES, SPE #### [place] [address] #### MMA, TSH, A1C, ENA1 #### [address] [address] Gamma 0.9 G/dL Normal 0.7-1.6 [facility] ([place]) Comment on above: Performed By: #### F OL, B12, IFES, SPE #### [place] [address] #### MMA, TSH, A1C, ENA1 #### [address] [address] A1Con 04-12-2023 HbA1c (Bld) [Mass fraction] 5.7 % Normal 4.3-6.4 [facility] ([place]) Comment on above: Performed By: #### F OL, B12, IFES, SPE #### [place] [address] #### MMA, TSH, A1C, ENA1 #### [address] [address] B12on 04-12-2023 Cobalamin (Vitamin B12) [Mass/Vol] 357 pg/mL Normal 211-911 [facility] ([place]) Comment on above: Performed By: #### F OL, B12, IFES, SPE #### [place] [address] #### MMA, TSH, A1C, ENA1 #### [address] [address] FOLon 04-12-2023 Folate 34.66 ng/mL High 5.38-24.00 [facility] ([place]) Comment on above: Performed By: #### F OL, B12, IFES, SPE #### [place] [address] #### MMA, TSH, A1C, ENA1 #### [place] [id number] SPEon 04-12-2023 Total Protein 6.7 G/dL Normal 5.7-8.2 [facility] [place]) Comment on above: Result Comment: No te - New Reference Range in effect 19 Performed By: #### F OL, B12, IFES, SPE #### [place] [address] #### MMA, TSH, A1C, ENA1 #### [address] [address] TSHon 04-12-2023 TSH Qn 1.42 m[IU]/L Normal 0.36-3.74 [facility] ([place]) Comment on above: Performed By: #### F OL, B12, IFES, SPE #### [place] [address] #### MMA, TSH, A1C, ENA1 #### [place] [address] [place], [place] [address] BD BONE DENSITY DEXA AXIAL S Jessica 03-23-2023 BD BONE DENSITY DEXA AXIAL SKELETON ORIGINAL EXAMINATION: BONE DENSITOMETRY 03/23/2023 11:30 am TECHNIQUE: A bone density dual x-ray absorptiometry (DEXA) scan was performed of the lumbar spine and left hip. COMPARISON: None. HISTORY: ORDERING SYSTEM PROVIDED HISTORY: Reason for Exam: Osteoporosis Screening FINDINGS: BMD (g/cm2) Lumbar Spine L1-L4: 1.271. T Score Lumbar Spine L1-L4: 1.6 BMD (g/cm2) Left Femoral Neck: 0.779. T Score Left Femoral Neck: -1.1 BMD (g/cm2) Left Hip: 0.995. T Score Left Hip: -0.2 FRAX: 10 year fracture risk assessment Major osteoporotic fracture: 6% Hip fracture: 1.7% IMPRESSION: Osteopenia by WHO criteria. *By the World Health Organization criteria: (Comparing with young normal sex matched population) - Normal: T-score at or above -1 SD (standard deviation) - Osteopenia: T-score between -1 and -2.5 SD - Osteoporosis: T-score at or below -2.5 SD Interpreted by: Benny Gallo DO Preliminary Report By: Benny Gallo DO Electronically signed By Benny Gallo DO Dictated Date: 03/23/2023 1:28:43 PM Prelim Date: 03/23/2023 1:29:40 PM Sign Date: 03/23/2023 1:29:40 PM Ordering Provider: JHONATAN Bonner [facility] ([place]) [id number] 03-15-2023 Lead, Blood 8.6 UG/DL High <3.5 [facility] ([place]) Comment on above: Result Comment: The Centers for Disease Control and Prevention (CDC) recommends a blood lead reference value of less than 3.5 ???g/dL (Update of the Blood Lead Reference Value - [place], 2020). The CDC's updated Recommended Actions Based on Blood Lead Level can be accessed at www.cdc.gov. Consult your State Department of Health and/or applicable regulatory agencies for specific guidance on testing follow up and patient management. This test was developed and its performance characteristics determined by [facility] ([facility]). It has not been cleared or approved by the FDA. [facility] is regulated under CLIA as qualified to perform high-complexity testing. This test is used for clinical purposes. It should not be regarded as investigational or for research. Performed By: [facility] [address] [place] [address] Perinatal Instructor: Javier Biggs III, M.D. IA#: [id number] Performed By: #### F OL, B12, IFES, SPE #### [place] [address] #### MMA, TSH, A1C, ENA1 #### [place] [id number] [place], [place] [address] XR HIP BILATERAL W/PELVIS SD NIMUM 5 VIEWSon 03-15-2023 XR HIP BILATERAL W/PELVIS MINIMUM 5 VIEWS ORIGINAL EXAMINATION: 03/15/2023 10:07 am COMPARISON: None. HISTORY: ORDERING SYSTEM PROVIDED HISTORY: Reason for Exam: hip pain, right FINDINGS: On the right, the femoral head is seated within the acetabulum. The joint space is preserved. No acute fracture, dislocation or radiopaque foreign bodies. On the left side, the femoral head is seated within the acetabulum and the joint space is preserved. No acute fracture, dislocation or radiopaque foreign bodies on the left side. IMPRESSION: 1. No acute osseous abnormality of the right hip. 2. No acute osseous abnormality of the left hip. Interpreted by: Breezy Marcial MD Preliminary Report By: Breezy Marcial MD Electronically signed By Breezy Marcial MD Dictated Date: 03/15/2023 2:07:54 PM Prelim Date: 03/15/2023 2:08:05 PM Sign Date: 03/15/2023 2:08:05 PM Ordering Provider: JHONATAN Bonner [facility] ([place]) .Auto Diffon 03-14-2023 Basophil, Absolute 0.1 10 3/mcL Normal 0.0-0.2 [facility] ([place]) Comment on above: Performed By: #### F OL, B12, IFES, SPE #### [place] [address] #### MMA, TSH, A1C, ENA1 #### [address] [address] Basophils/100 WBC (Bld) 0.8 % Normal 0.0-2.5 [facility] ([place]) Comment on above: Performed By: #### F OL, B12, IFES, SPE #### [place] [address] #### MMA, TSH, A1C, ENA1 #### [address] [address] Eosinophil, Absolute 0.2 10 3/mcL Normal 0.0-0.4 [facility] ([place]) Comment on above: Performed By: #### F OL, B12, IFES, SPE #### [place] [address] #### MMA, TSH, A1C, ENA1 #### [address] [address] Eosinophils/100 WBC (Bld) 2.3 % Normal 0.0-7.0 [facility] ([place]) Comment on above: Performed By: #### F OL, B12, IFES, SPE #### [place] [address] #### MMA, TSH, A1C, ENA1 #### [address] [address] Lymphocyte, Absolute 1.9 10 3/mcL Normal 0.8-3.9 [facility] ([place]) Comment on above: Performed By: #### F OL, B12, IFES, SPE #### [place] [address] #### MMA, TSH, A1C, ENA1 #### [address] [address] Lymphocytes/100 WBC (Bld) 24.2 % Normal 10.0-50.0 [facility] ([place]) Comment on above: Performed By: #### F OL, B12, IFES, SPE #### [place] [address] #### MMA, TSH, A1C, ENA1 #### [address] [address] Monocyte, Absolute 0.8 10 3/mcL Normal 0.2-1.0 [facility] ([place]) Comment on above: Performed By: #### F OL, B12, IFES, SPE #### [place] [address] #### MMA, TSH, A1C, ENA1 #### [address] [address] Monocytes/100 WBC (Bld) 9.9 % Normal 1.7-13.0 [facility] ([place]) Comment on above: Performed By: #### F OL, B12, IFES, SPE #### [place] [address] #### MMA, TSH, A1C, ENA1 #### [address] [address] Neutrophils/100 WBC (Bld) 62.8 % Normal 37.0-80.0 [facility] ([place] Comment on above: Performed By: #### F OL, B12, IFES, SPE #### [place] [address] #### MMA, TSH, A1C, ENA1 #### [address] [address] .GFRon 03-14-2023 GFR 85 ml/min/1.73sqm Normal [facility] ([place]) Comment on above: Result Comment: GFR Population mean for , Non- Americans Ages 20-29 = 116 mL/min/1.73 sq.m. Ages 30-39 = 107 mL/min/1.73 sq.m. Ages 40-49 = 99 mL/min/1.73 sq.m. Ages 50-59 = 93 mL/min/1.73 sq.m. Ages 60-69 = 85 mL/min/1.73 sq.m. Ages 70+ = 75 mL/min/1.73 sq.m. Chronic Kidney Disease: Less than 60 mL/min/1.73 square meters End Stage Renal Disease: Less than 15 mL/min/1.73 square meters Performed By: #### F OL, B12, IFES, SPE #### [address] [address] #### MMA, TSH, A1C, ENA1 #### [address] [address] GFR Non- 70 ml/min/1.73sqm Normal [facility] ([place]) Comment on above: Result Comment: GFR Population mean for , Non- Americans Ages 20-29 = 116 mL/min/1.73 sq.m. Ages 30-39 = 107 mL/min/1.73 sq.m. Ages 40-49 = 99 mL/min/1.73 sq.m. Ages 50-59 = 93 mL/min/1.73 sq.m. Ages 60-69 = 85 mL/min/1.73 sq.m. Ages 70+ = 75 mL/min/1.73 sq.m. Chronic Kidney Disease: Less than 60 mL/min/1.73 square meters End Stage Renal Disease: Less than 15 mL/min/1.73 square meters Performed By: #### F OL, B12, IFES, SPE #### [place] [address] #### MMA, TSH, A1C, ENA1 #### [address] [address] .NEUABSon 03-14-2023 Neutrophil, Absolute 5.0 10 3/mcL Normal 2.9-6.2 [facility] ([place]) Comment on above: Performed By: #### F OL, B12, IFES, SPE #### [place] [address] #### MMA, TSH, A1C, ENA1 #### [address] [address] CBCon 03-14-2023 Erythrocyte distribution width (RBC) [Ratio] 14.2 % Normal 11.5-14.5 [facility] ([place]) Comment on above: Performed By: #### F OL, B12, IFES, SPE #### [place] [address] #### MMA, TSH, A1C, ENA1 #### [address] [address] Hematocrit (Bld) [Volume fraction] 44.9 % Normal 42.0-52.0 [facility] ([place]) Comment on above: Performed By: #### F OL, B12, IFES, SPE #### [place] [address] #### MMA, TSH, A1C, ENA1 #### [address] [address] Hgb 14.8 G/dL Normal 14.0-18.0 [facility] ([place]) Comment on above: Performed By: #### F OL, B12, IFES, SPE #### [place] [address] #### MMA, TSH, A1C, ENA1 #### [address] [address] MCH (RBC) [Entitic mass] 29.1 pg Normal 27.0-31.2 [facility] ([place]) Comment on above: Performed By: #### F OL, B12, IFES, SPE #### [place] [address] #### MMA, TSH, A1C, ENA1 #### [address] [address] MCHC 32.9 G/dL Normal 31.8-35.4 [facility] ([place]) Comment on above: Performed By: #### F OL, B12, IFES, SPE #### [place] [address] #### MMA, TSH, A1C, ENA1 #### [address] [address] MCV (RBC) [Entitic vol] 88.4 fL Normal 80.0-94.0 [facility] ([place]) Comment on above: Performed By: #### F OL, B12, IFES, SPE #### [address] [address] #### MMA, TSH, A1C, ENA1 #### [address] [address] Platelet 237 10 3/mcL Normal 130-400 [facility] ([place]) Comment on above: Performed By: #### F OL, B12, IFES, SPE #### [place] [address] #### MMA, TSH, A1C, ENA1 #### [address] [address] Platelet mean volume (Bld) [Entitic vol] 7.3 fL Low 7.4-10.4 [facility] ([place]) Comment on above: Performed By: #### F OL, B12, IFES, SPE #### [place] [address] #### MMA, TSH, A1C, ENA1 #### [address] [address] RBC 5.08 10 6/mcL Normal 4.04-6.13 [facility] [place] Comment on above: Performed By: #### F OL, B12, IFES, SPE #### [place] [address] #### MMA, TSH, A1C, ENA1 #### [address] [address] WBC 7.9 10 3/mcL Normal 4.6-10.8 [facility] ([place]) Comment on above: Performed By: #### F OL, B12, IFES, SPE #### [place] [address] #### MMA, TSH, A1C, ENA1 #### [address] [address] CMPon 03-14-2023 Albumin Level 4.0 G/dL Normal 3.4-4.8 [facility] [place] Comment on above: Performed By: #### F OL, B12, IFES, SPE #### [place] [address] #### MMA, TSH, A1C, ENA1 #### [address] [address] Albumin/Globulin [Mass ratio] 1.4 {ratio} Normal 1.1-2.5 [facility] ([place]) Comment on above: Performed By: #### F OL, B12, IFES, SPE #### [place] [address] #### MMA, TSH, A1C, ENA1 #### [address] [address] ALP [Catalytic activity/Vol] 78 U/L Normal 40-135 [facility] ([place]) Comment on above: Performed By: #### F OL, B12, IFES, SPE #### [place] [address] #### MMA, TSH, A1C, ENA1 #### [address] [address] ALT [Catalytic activity/Vol] 19 U/L Normal 16-63 [facility] ([place]) Comment on above: Performed By: #### F OL, B12, IFES, SPE #### [place] [address] #### MMA, TSH, A1C, ENA1 #### [address] [address] AST [Catalytic activity/Vol] 15 U/L Normal 10-40 [facility] ([place]) Comment on above: Performed By: #### F OL, B12, IFES, SPE #### [place] [address] #### MMA, TSH, A1C, ENA1 #### [address] [address] Bili Total 0.8 mg/dL Normal 0.2-1.0 [facility] ([place]) Comment on above: Result Comment: Use of this assay is not recommended for patients undergoing treatment with eltrombopag due to the potential for falsely elevated results. Performed By: #### F OL, B12, IFES, SPE #### [place] [address] #### MMA, TSH, A1C, ENA1 #### [address] [address] BUN/Creatinine Ratio 18 ratio Normal 7-27 [facility] ([place]) Comment on above: Performed By: #### F OL, B12, IFES, SPE #### [place] [address] #### MMA, TSH, A1C, ENA1 #### [address] [address] Calcium [Mass/Vol] 9.0 mg/dL Normal 8.4-10.2 [facility] ([place]) Comment on above: Performed By: #### F OL, B12, IFES, SPE #### [place] [address] #### MMA, TSH, A1C, ENA1 #### [address] [address] Chloride [Moles/Vol] 102 mmol/L Normal 98-107 [facility] ([place]) Comment on above: Performed By: #### F OL, B12, IFES, SPE #### [place] [address] #### MMA, TSH, A1C, ENA1 #### [address] [address] CO2 [Moles/Vol] 29 mmol/L Normal 23-31 [facility] ([place]) Comment on above: Performed By: #### F OL, B12, IFES, SPE #### [place] [address] #### MMA, TSH, A1C, ENA1 #### [address] [address] Creatinine [Mass/Vol] 1.03 mg/dL Normal 0.70-1.30 [facility] ([place]) Comment on above: Performed By: #### F OL, B12, IFES, SPE #### [place] [address] #### MMA, TSH, A1C, ENA1 #### [address] [address] Electrolyte Balance 13.0 mEq/L Normal 4.0-15.0 [facility] ([place]) Comment on above: Performed By: #### F OL, B12, IFES, SPE #### [place] [address] #### MMA, TSH, A1C, ENA1 #### [address] [address] Globulin 2.9 G/dL Normal [facility] ([place]) Comment on above: Performed By: #### F OL, B12, IFES, SPE #### [place] [address] #### MMA, TSH, A1C, ENA1 #### [address] [address] Glucose [Mass/Vol] 110 mg/dL Normal 83-110 Formerly [facility], [facility] ([place]) Comment on above: Performed By: #### F OL, B12, IFES, SPE #### [place] [address] #### MMA, TSH, A1C, ENA1 #### [address] [address] Potassium [Moles/Vol] 5.0 mmol/L Normal 3.5-5.1 [facility] ([place]) Comment on above: Performed By: #### F OL, B12, IFES, SPE #### [place] [address] #### MMA, TSH, A1C, ENA1 #### [address] [address] Sodium [Moles/Vol] 144 mmol/L Normal 136-145 Formerly [facility], [facility] ([place]) Comment on above: Performed By: #### F OL, B12, IFES, SPE #### [place] [address] #### MMA, TSH, A1C, ENA1 #### [address] [address] Total Protein 6.9 G/dL Normal 6.4-8.2 [facility] ([place]) Comment on above: Performed By: #### F OL, B12, IFES, SPE #### [place] [address] #### MMA, TSH, A1C, ENA1 #### [place] [address] Urea nitrogen [Mass/Vol] 19 mg/dL High 7-18 [facility] ([place]) Comment on above: Performed By: #### F OL, B12, IFES, SPE #### [place] [address] #### MMA, TSH, A1C, ENA1 #### [place] [address] CRPon 03-14-2023 C-Reactive Protein 0.2 mg/dL Normal 0.0-0.3 Formerly [facility] ([place]) Comment on above: Performed By: #### F OL, B12, IFES, SPE #### [place] [address] #### MMA, TSH, A1C, ENA1 #### [address] [address] ESRon 03-14-2023 Erythrocyte Sed Rate 14 mm/hr Normal 0-20 [facility] ([place]) Comment on above: Performed By: #### F OL, B12, IFES, SPE #### [place] [address] #### MMA, TSH, A1C, ENA1 #### [place] [address] LABORATORYOrdered By: SYSTEM SYSTEM on 03-14-2023 25-hydroxyvitamin D3 [Mass/Vol] 39.8 ng/mL Invalid Interpretation Code AO ADM SS Comment on above: Interpretive Data: I nterpretive Values Based on Total 25(OH) Vitamin D: Deficient <20 ng/mL Insufficient 20 - <30 ng/mL Sufficient 30-100 ng/mL Albumin BCP dye [Mass/Vol] 4.0 G/dL Invalid Interpretation Code 3.4 - 4.8 G/dL AO ADM SS Albumin/Globulin [Mass ratio] 1.4 {ratio} Invalid Interpretation Code 1.1 - 2.5 ratio AO ADM SS ALP [Catalytic activity/Vol] 78 U/L Invalid Interpretation Code 40 - 135 U/L AO ADM SS ALT With P-5'-P [Catalytic activity/Vol] 19 U/L Invalid Interpretation Code 16 - 63 U/L AO ADM SS AST With P-5'-P [Catalytic activity/Vol] 15 U/L Invalid Interpretation Code 10 - 40 U/L AO ADM SS Basophil, Absolute 0.1 103/mcL Invalid Interpretation Code 0.0 - 0.2 10^3/mcL AO Workflow SS Basophils/100 WBC (Bld) 0.8 % Invalid Interpretation Code 0.0 - 2.5 % AO Workflow SS Bilirubin [Mass/Vol] 0.8 mg/dL Invalid Interpretation Code 0.2 - 1.0 mg/dL AO ADM SS Comment on above: Interpretive Data: U se of this assay is not recommended for patients undergoing treatment with eltrombopag due to the potential for falsely elevated results. Calcium [Mass/Vol] 9.0 mg/dL Invalid Interpretation Code 8.4 - 10.2 mg/dL AO ADM SS Chloride [Moles/Vol] 102 mmol/L Invalid Interpretation Code 98 - 107 mmol/L AO ADM SS CO2 [Moles/Vol] 29 mmol/L Invalid Interpretation Code 23 - 31 mmol/L AO ADM SS Creatinine [Mass/Vol] 1.03 mg/dL Invalid Interpretation Code 0.70 - 1.30 mg/dL AO ADM SS CRP [Mass/Vol] 0.2 mg/dL Invalid Interpretation Code 0.0 - 0.3 mg/dL AO ADM SS Electrolyte Balance 13.0 mEq/L Invalid Interpretation Code 4.0 - 15.0 mEq/L AO ADM SS Eosinophil, Absolute 0.2 103/mcL Invalid Interpretation Code 0.0 - 0.4 10^3/mcL AO Workflow SS Eosinophils/100 WBC (Bld) 2.3 % Invalid Interpretation Code 0.0 - 7.0 % AO Workflow SS Erythrocyte distribution width (RBC) [Ratio] 14.2 % Invalid Interpretation Code 11.5 - 14.5 % AO Workflow SS GFR/1.73 sq M.predicted among blacks MDRD (S/P/Bld) [Vol rate/Area] 85 ml/min/1.73sqm Invalid Interpretation Code AO Chemistry S Comment on above: Interpretive Data: GFR Population mean for , Non- Americans Ages 20-29 = 116 mL/min/1.73 sq.m. Ages 30-39 = 107 mL/min/1.73 sq.m. Ages 40-49 = 99 mL/min/1.73 sq.m. Ages 50-59 = 93 mL/min/1.73 sq.m. Ages 60-69 = 85 mL/min/1.73 sq.m. Ages 70+ = 75 mL/min/1.73 sq.m. Chronic Kidney Disease: Less than 60 mL/min/1.73 square meters End Stage Renal Disease: Less than 15 mL/min/1.73 square meters GFR/1.73 sq M.predicted among non-blacks MDRD (S/P/Bld) [Vol rate/Area] 70 ml/min/1.73sqm Invalid Interpretation Code AO Chemistry S Comment on above: Interpretive Data: GFR Population mean for , Non- Americans Ages 20-29 = 116 mL/min/1.73 sq.m. Ages 30-39 = 107 mL/min/1.73 sq.m. Ages 40-49 = 99 mL/min/1.73 sq.m. Ages 50-59 = 93 mL/min/1.73 sq.m. Ages 60-69 = 85 mL/min/1.73 sq.m. Ages 70+ = 75 mL/min/1.73 sq.m. Chronic Kidney Disease: Less than 60 mL/min/1.73 square meters End Stage Renal Disease: Less than 15 mL/min/1.73 square meters Globulin 2.9 G/dL Invalid Interpretation Code AO ADM SS Glucose [Mass/Vol] 110 mg/dL Invalid Interpretation Code 83 - 110 mg/dL AO ADM SS Hematocrit (Bld) [Volume fraction] 44.9 % Invalid Interpretation Code 42.0 - 52.0 % AO Workflow SS Hemoglobin (Bld) [Mass/Vol] 14.8 G/dL Invalid Interpretation Code 14.0 - 18.0 G/dL AO Workflow SS Lymphocyte, Absolute 1.9 103/mcL Invalid Interpretation Code 0.8 - 3.9 10^3/mcL AO Workflow SS Lymphocytes/100 WBC (Bld) 24.2 % Invalid Interpretation Code 10.0 - 50.0 % AO Workflow SS MCH (RBC) [Entitic mass] 29.1 pg Invalid Interpretation Code 27.0 - 31.2 pg AO Workflow SS MCHC 32.9 G/dL Invalid Interpretation Code 31.8 - 35.4 G/dL AO Workflow SS MCV (RBC) [Entitic vol] 88.4 fL Invalid Interpretation Code 80.0 - 94.0 fL AO Workflow SS Monocyte, Absolute 0.8 103/mcL Invalid Interpretation Code 0.2 - 1.0 10^3/mcL AO Workflow SS Monocytes/100 WBC (Bld) 9.9 % Invalid Interpretation Code 1.7 - 13.0 % AO Workflow SS Neutrophil, Absolute 5.0 103/mcL Invalid Interpretation Code 2.9 - 6.2 10^3/mcL AO Workflow SS Neutrophils/100 WBC (Bld) 62.8 % Invalid Interpretation Code 37.0 - 80.0 % AO Workflow SS Platelet mean volume (Bld) [Entitic vol] 7.3 fL Invalid Interpretation Code 7.4 - 10.4 fL AO Workflow SS Platelets (Bld) [#/Vol] 237 103/mcL Invalid Interpretation Code 130 - 400 10^3/mcL AO Workflow SS Potassium [Moles/Vol] 5.0 mmol/L Invalid Interpretation Code 3.5 - 5.1 mmol/L AO ADM SS Protein [Mass/Vol] 6.9 G/dL Invalid Interpretation Code 6.4 - 8.2 G/dL AO ADM SS RBC (Bld) [#/Vol] 5.08 106/mcL Invalid Interpretation Code 4.04 - 6.13 10^6/mcL AO Workflow SS Sodium [Moles/Vol] 144 mmol/L Invalid Interpretation Code 136 - 145 mmol/L AO ADM SS Urea nitrogen [Mass/Vol] 19 mg/dL Invalid Interpretation Code 7 - 18 mg/dL AO ADM SS Urea nitrogen/Creatinine [Mass ratio] 18 ratio Invalid Interpretation Code 7 - 27 ratio AO ADM SS Uric Acid Lvl 4.2 mg/dL Invalid Interpretation Code 3.5 - 7.2 mg/dL AO ADM SS WBC (Bld) [#/Vol] 7.9 103/mcL Invalid Interpretation Code 4.6 - 10.8 10^3/mcL AO Workflow SS LABORATORYOrdered By: Kenisha French on 03-14-2023 Cholesterol [Mass/Vol] 129 mg/dL Invalid Interpretation Code 0 - 200 mg/dL AO ADM SS Comment on above: Interpretive Data: C holesterol Reference Interval: Less than 200 Desirable 200-239 Borderline high risk 240 and above High risk Cholesterol in HDL [Mass/Vol] 42 mg/dL Invalid Interpretation Code 40 - 60 mg/dL AO ADM SS Cholesterol in LDL [Mass/Vol] 76 mg/dL Invalid Interpretation Code 0 - 130 mg/dL AO ADM SS ESR Photometric method (Bld) [Velocity] 14 mm/hr Invalid Interpretation Code 0 - 20 mm/hr AO Man Heme SS Triglyceride [Mass/Vol] 57 mg/dL Invalid Interpretation Code 0 - 150 mg/dL AO ADM SS Comment on above: Interpretive Data: T riglyceride Reference Interval: Less than 150 Normal 150-199 Borderline high risk 200-499 High risk 500 or higher Very high risk LIPIDon 03-14-2023 Cholesterol [Mass/Vol] 129 mg/dL Normal 0-200 [facility] ([place]) Comment on above: Order Comment: reuben ornelas to Dr. Kline Result Comment: Chol esterol Reference Interval: Less than 200 Desirable 200-239 Borderline high risk 240 and above High risk Performed By: #### F OL, B12, IFES, SPE #### [place] [address] #### MMA, TSH, A1C, ENA1 #### [address] [address] Cholesterol in HDL [Mass/Vol] 42 mg/dL Normal 40-60 [facility] ([place]) Comment on above: Order Comment: reuben Kline Performed By: #### F OL, B12, IFES, SPE #### [place] [id number] #### MMA, TSH, A1C, ENA1 #### [address] [address] Cholesterol in LDL [Mass/Vol] 76 mg/dL Normal 0-130 [facility] ([place]) Comment on above: Order Comment: reuben Kline Performed By: #### F OL, B12, IFES, SPE #### [place] [address] #### MMA, TSH, A1C, ENA1 #### [address] [address] Triglyceride [Mass/Vol] 57 mg/dL Normal 0-150 [facility] ([place]) Comment on above: Order Comment: cc gena ornelas to Dr. Kline Result Comment: Trig lyceride Reference Interval: Less than 150 Normal 150-199 Borderline high risk 200-499 High risk 500 or higher Very high risk Performed By: #### F OL, B12, IFES, SPE #### [place] [address] #### MMA, TSH, A1C, ENA1 #### [place] [id number] [facility]Con 03-14-2023 Uric Acid Lvl 4.2 mg/dL Normal 3.5-7.2 [facility] ([place]) Comment on above: Performed By: #### F OL, B12, IFES, SPE #### [place] [address] #### MMA, TSH, A1C, ENA1 #### [address] [address] VIDHon 03-14-2023 Vit. D 25-Hydroxy 39.8 ng/mL Normal [facility] ([place]) Comment on above: Result Comment: Inte rpretive Values Based on Total 25(OH) Vitamin D: Deficient <20 ng/mL Insufficient 20 - <30 ng/mL Sufficient 30-100 ng/mL Performed By: #### F OL, B12, IFES, SPE #### [place] [address] #### MMA, TSH, A1C, ENA1 #### [address] [address] LABORATORYOrdered By: SYSTEM SYSTEM on 01-04-2023 Albumin BCP dye [Mass/Vol] 3.9 G/dL Invalid Interpretation Code 3.4 - 4.8 G/dL AO ADM SS Albumin/Globulin [Mass ratio] 1.3 {ratio} Invalid Interpretation Code 1.1 - 2.5 ratio AO ADM SS ALP [Catalytic activity/Vol] 141 U/L Invalid Interpretation Code 40 - 135 U/L AO ADM SS ALT With P-5'-P [Catalytic activity/Vol] 21 U/L Invalid Interpretation Code 16 - 63 U/L AO ADM SS AST With P-5'-P [Catalytic activity/Vol] 23 U/L Invalid Interpretation Code 10 - 40 U/L AO ADM SS Basophil, Absolute 0.1 103/mcL Invalid Interpretation Code 0.0 - 0.2 10^3/mcL AO Workflow SS Basophils/100 WBC (Bld) 1.4 % Invalid Interpretation Code 0.0 - 2.5 % AO Workflow SS Bilirubin [Mass/Vol] 1.8 mg/dL Invalid Interpretation Code 0.2 - 1.0 mg/dL AO ADM SS Comment on above: Interpretive Data: U se of this assay is not recommended for patients undergoing treatment with eltrombopag due to the potential for falsely elevated results. Calcium [Mass/Vol] 8.9 mg/dL Invalid Interpretation Code 8.4 - 10.2 mg/dL AO ADM SS Chloride [Moles/Vol] 101 mmol/L Invalid Interpretation Code 98 - 107 mmol/L AO ADM SS CO2 [Moles/Vol] 26 mmol/L Invalid Interpretation Code 23 - 31 mmol/L AO ADM SS Creatinine [Mass/Vol] 1.06 mg/dL Invalid Interpretation Code 0.70 - 1.30 mg/dL AO ADM SS Electrolyte Balance 10.0 mEq/L Invalid Interpretation Code 4.0 - 15.0 mEq/L AO ADM SS Eosinophil, Absolute 0.2 103/mcL Invalid Interpretation Code 0.0 - 0.4 10^3/mcL AO Workflow SS Eosinophils/100 WBC (Bld) 1.8 % Invalid Interpretation Code 0.0 - 7.0 % AO Workflow SS Erythrocyte distribution width (RBC) [Ratio] 15.9 % Invalid Interpretation Code 11.5 - 14.5 % AO Workflow SS Ferritin [Mass/Vol] 283.0 ng/mL Invalid Interpretation Code 26.0 - 388.0 ng/mL AO ADM SS GFR/1.73 sq M.predicted among blacks MDRD (S/P/Bld) [Vol rate/Area] 82 ml/min/1.73sqm Invalid Interpretation Code AO Chemistry S Comment on above: Interpretive Data: GFR Population mean for , Non- Americans Ages 20-29 = 116 mL/min/1.73 sq.m. Ages 30-39 = 107 mL/min/1.73 sq.m. Ages 40-49 = 99 mL/min/1.73 sq.m. Ages 50-59 = 93 mL/min/1.73 sq.m. Ages 60-69 = 85 mL/min/1.73 sq.m. Ages 70+ = 75 mL/min/1.73 sq.m. Chronic Kidney Disease: Less than 60 mL/min/1.73 square meters End Stage Renal Disease: Less than 15 mL/min/1.73 square meters GFR/1.73 sq M.predicted among non-blacks MDRD (S/P/Bld) [Vol rate/Area] 68 ml/min/1.73sqm Invalid Interpretation Code AO Chemistry S Comment on above: Interpretive Data: GFR Population mean for , Non- Americans Ages 20-29 = 116 mL/min/1.73 sq.m. Ages 30-39 = 107 mL/min/1.73 sq.m. Ages 40-49 = 99 mL/min/1.73 sq.m. Ages 50-59 = 93 mL/min/1.73 sq.m. Ages 60-69 = 85 mL/min/1.73 sq.m. Ages 70+ = 75 mL/min/1.73 sq.m. Chronic Kidney Disease: Less than 60 mL/min/1.73 square meters End Stage Renal Disease: Less than 15 mL/min/1.73 square meters Globulin 3.0 G/dL Invalid Interpretation Code AO ADM SS Glucose [Mass/Vol] 103 mg/dL Invalid Interpretation Code 83 - 110 mg/dL AO ADM SS Hematocrit (Bld) [Volume fraction] 31.1 % Invalid Interpretation Code 42.0 - 52.0 % AO Workflow SS Hemoglobin (Bld) [Mass/Vol] 10.1 G/dL Invalid Interpretation Code 14.0 - 18.0 G/dL AO Workflow SS Iron [Mass/Vol] 47 ug/dL Invalid Interpretation Code 65 - 175 mcg/dL AO ADM SS Lymphocyte, Absolute 1.2 103/mcL Invalid Interpretation Code 0.8 - 3.9 10^3/mcL AO Workflow SS Lymphocytes/100 WBC (Bld) 13.7 % Invalid Interpretation Code 10.0 - 50.0 % AO Workflow SS MCH (RBC) [Entitic mass] 30.3 pg Invalid Interpretation Code 27.0 - 31.2 pg AO Workflow SS MCHC 32.5 G/dL Invalid Interpretation Code 31.8 - 35.4 G/dL AO Workflow SS MCV (RBC) [Entitic vol] 93.5 fL Invalid Interpretation Code 80.0 - 94.0 fL AO Workflow SS Monocyte, Absolute 0.7 103/mcL Invalid Interpretation Code 0.2 - 1.0 10^3/mcL AO Workflow SS Monocytes/100 WBC (Bld) 8.7 % Invalid Interpretation Code 1.7 - 13.0 % AO Workflow SS Neutrophil, Absolute 6.4 103/mcL Invalid Interpretation Code 2.9 - 6.2 10^3/mcL AO Workflow SS Neutrophils/100 WBC (Bld) 74.4 % Invalid Interpretation Code 37.0 - 80.0 % AO Workflow SS Platelet mean volume (Bld) [Entitic vol] 6.6 fL Invalid Interpretation Code 7.4 - 10.4 fL AO Workflow SS Platelets (Bld) [#/Vol] 520 103/mcL Invalid Interpretation Code 130 - 400 10^3/mcL AO Workflow SS Potassium [Moles/Vol] 4.9 mmol/L Invalid Interpretation Code 3.5 - 5.1 mmol/L AO ADM SS Protein [Mass/Vol] 6.9 G/dL Invalid Interpretation Code 6.4 - 8.2 G/dL AO ADM SS RBC (Bld) [#/Vol] 3.33 106/mcL Invalid Interpretation Code 4.04 - 6.13 10^6/mcL AO Workflow SS Sodium [Moles/Vol] 137 mmol/L Invalid Interpretation Code 136 - 145 mmol/L AO ADM SS Urea nitrogen [Mass/Vol] 20 mg/dL Invalid Interpretation Code 7 - 18 mg/dL AO ADM SS Urea nitrogen/Creatinine [Mass ratio] 19 ratio Invalid Interpretation Code 7 - 27 ratio AO ADM SS WBC (Bld) [#/Vol] 8.6 103/mcL Invalid Interpretation Code 4.6 - 10.8 10^3/mcL AO Workflow SS Absolute lymphocyte countOrd ered By: Bandar Brandon on 12-22-2022 Lymphocytes Auto (Unsp spec) [#/Vol] 1.82 10*3/uL 0.83-4.51 [facility] Basophil percentageOrdered B y: Bandar Brandon on 12-22-2022 Chloride [Moles/Vol] 108 mmol/L 98-107 [facility] Glucose [Mass/Vol] 118 mg/dL 74-106 [facility] Comment on above: Fasting Glucose resu lt from 100 to 125 mg/dL suggests IMPAIRED HOMEOSTASIS per A.D.A. criteria. LDH [Catalytic activity/Vol] 165 U/L 87-241 [facility] Potassium [Moles/Vol] 3.9 mmol/L 3.5-5.1 [facility] Sodium [Moles/Vol] 140 mmol/L 136-145 [facility] Basophils/100 WBC (Bld) 0.5 % 0-1 [facility] Eosinophils/100 WBC (Bld) 2.1 % 0-5 [facility] Neutrophils (Bld) [#/Vol] 9.1 10*3/uL 2.0-7.7 [facility] Neutrophils/100 WBC (Bld) 72.0 % 47-70 [facility] WBC (Bld) [#/Vol] 12.6 10*3/uL 4.4-11.0 [facility] Basophil percentageOrdered B y: [place] Jen on 12-22-2022 Bilirubin [Mass/Vol] 2.10 mg/dL 0.20-1.00 [facility] Comment on above: For patients on eltr ombopag therapy, use of Dimension [place] TBIL is not recommended. Cholesterol [Mass/Vol] 121 mg/dL <200 [facility] Comment on above: <200 mg/dL Desirable 200-240 mg/dL Borderline >240 mg/dL High Risk Protein [Mass/Vol] 6.3 g/dL 6.4-8.2 [facility] Triglyceride [Mass/Vol] 127 mg/dL <199 [facility] Comment on above: The drugs N-Acetylcy steine and Metamizole may falsely depress this assay.Serum Triglycerides Reference Interval Normal <150 mg/dL Borderline high 150 - 199 mg/dL High 200 - 499 mg/dL Very High > or = 500 mg/dL Blood erythrocytes count (nu mber/volume)Ordered By: Bandar Brandon on 12-22-2022 RBC (Bld) [#/Vol] 2.29 10*6/uL 4.6-6.2 [facility] Blood hemoglobin measurement (mass/volume)Ordered By: Bandar Brandon on 12-22-2022 Hemoglobin (Bld) [Mass/Vol] 7.3 g/dL 13.0-16.5 [facility] Blood lymphocytes/100 leukoc ytesOrdered By: Bandar Brandon on 12-22-2022 Lymphocytes/100 WBC (Bld) 14.4 % 19-41 [facility] Blood monocytes/100 leukocyt esOrdered By: Bandar Brandon on 12-22-2022 Monocytes/100 WBC (Bld) 8.5 % 0-10 [facility] Blood platelet mean volumeOr dered By: Bandar Brandon on 12-22-2022 Platelet mean volume (Bld) [Entitic vol] 9.3 fL 6.2-12.0 [facility] Determination of erythrocyte mean corpuscular volume (MCV)Ordered By: Bandar Brandon on 12-22-2022 MCV (RBC) [Entitic vol] 100.9 fL 80-94 [facility] Direct bilirubinOrdered By: Kael Kline on 12-22-2022 Bilirubin.direct [Mass/Vol] 0.39 mg/dL 0.00-0.30 [facility] Hematocrit Auto (Bld) [Volum e fraction]Ordered By: Bandar Brandon on 12-22-2022 Hematocrit (Bld) [Volume fraction] 23.1 % 40-54 [facility] Laboratory - Chemistry and C hemistry - challengeOrdered By: Bandar Brandon on 12-22-2022 CO2 [Moles/Vol] 29.0 mmol/L 21.0-32.0 [facility] Urea nitrogen/Creatinine [Mass ratio] 16.8 mg/mg 10-20 [facility] Laboratory - Chemistry and C hemistry - challengeOrdered By: Kael Kline on 12-22-2022 ALP [Catalytic activity/Vol] 69 U/L 45-117 [facility] ALT [Catalytic activity/Vol] 23 U/L 16-61 [facility] Globulin (S) [Mass/Vol] 3.1 g/dL 2.2-4.2 [facility] Laboratory - Hematology and Cell countsOrdered By: Bandar Brandon on 12-22-2022 Erythrocyte distribution width (RBC) [Entitic vol] 47.4 fL 35.1-43.9 [facility] Erythrocyte distribution width (RBC) [Ratio] 14.5 % 11.6-14.6 [facility] Immature granulocytes/100 WBC (Bld) 2.500 % 0.0-0.9 [facility] Comment on above: IG% - Immature Granu locytes (promyelocytes, myelocytes and metamyelocytes) > 1% indicates that a LEFT SHIFT is Present. MCH (RBC) [Entitic mass] 31.9 pg 27.0-32.0 [facility] Nucleated RBC/100 WBC (Bld) [Ratio] 0.6 % 0-5 [facility] MCHC Auto (RBC) [Mass/Vol]Or dered By: Bandar Brandon on 12-22-2022 MCHC (RBC) [Mass/Vol] 31.6 g/dL 32-36 [facility] No Panel InformationOrdered By: Bandar Brandon on 12-22-2022 Estimated GFR (MDRD) Amer 106 mL/min >60 [facility] Comment on above: GFR Calc Estimated GFR (MDRD) Non-Af Amer 88 mL/min >60 [facility] Comment on above: Non- GFR Calc Haptoglobin 232 mg/dL 34-355 [facility] Comment on above: Performed at: [address] Director: Messi Solis PhD, Phone: [phone] Platelets bldOrdered By: Nicola Brandon on 12-22-2022 Platelets (Bld) [#/Vol] 235 10*3/uL 150-450 [facility] Serum or plasma albumin cherise urement (mass/volume)Ordered By: Kael Kline on 12-22-2022 Albumin [Mass/Vol] 3.2 g/dL 3.2-5.0 [facility] Serum or plasma calcium cherise urement (mass/volume)Ordered By: Bandar Brandon on 12-22-2022 Calcium [Mass/Vol] 8.5 mg/dL 8.5-10.1 [facility] Serum or plasma cholesterol in HDL measurement (mass/volume)Ordered By: Kael Kline on 12-22-2022 Cholesterol in HDL [Mass/Vol] 44 mg/dL >40 [facility] Comment on above: The drugs N-Acetylcy steine and Metamizole may falsely depress this assay. Reference Range HDL <40 mg/dL Low HDL Cholesterol HDL >or= 60 mg/dL High HDL Cholesterol Serum or plasma cholesterol in VLDL measurement (mass/volume)Ordered By: Kael Kline on 12-22-2022 Cholesterol in VLDL [Mass/Vol] 25 mg/dL 5-40 [facility] Serum or plasma creatinine m easurement (mass/volume)Ordered By: Bandar Brandon on 12-22-2022 Creatinine [Mass/Vol] 0.89 mg/dL 0.70-1.30 [facility] Comment on above: The validity of the calculated GFR & GFRAA in patients over 70 years has not been determined. Clinical correlation is essential. Serum or plasma low density lipoprotein (LDL) cholesterol measurement (mass/volume)Ordered By: Kael Kline on 12-22-2022 Cholesterol in LDL [Mass/Vol] 52 mg/dL 0-130 [facility] Serum or plasma urea nitroge n measurement (mass/volume)Ordered By: Bandar Brandon on 12-22-2022 Urea nitrogen [Mass/Vol] 15 mg/dL 7-18 [facility] Thin prep Papanicolaou smear with manual screeningOrdered By: Bandar Brandon on 12-22-2022 Thin prep Papanicolaou smear with manual screening 3 5-15 [facility] Thin prep Papanicolaou smear with manual screeningOrdered By: Kael Kline on 12-22-2022 Thin prep Papanicolaou smear with manual screening 19 U/L 15-37 [facility] CNOVon 12-21-2022 CNOV Office Visit (AGVASACC) JUSTA MARIANO ([id number]) 1945 M Date Time Provider Department 12/21/22 10:00 AM IVETT ALFREDO During your visit today, we recorded the following information about you: Pulse Blood pressure Weight Height 71/minute 132/62 74.8 kg 1.791 m Ivett Alfredo APRN.[employer] SCIENTIST 12/21/2022 10:06 AM Signed Ivett Alfredo CC phone # [phone] Ivett Alfredo APRN.BENCH SCIENTIST 12/21/2022 1:01 PM Signed Justa Ahsan Mariano is a 77 year old male here for ED follow-up HPI: Justa comes to the office today for early follow-up from his ED stay over the weekend. Pt reports that he is doing OK. Has noticed significant change in his L thigh hematoma, and wondering what comes next. Has not popped any of the blisters because he was told not too. Has been wrapping as instructed in the hospital. Noticed worsening in color and many more blisters. Scant amount of drainage noted on wrap. No pain when sitting but notes significant discomfort with walking or moving leg. Takes tylenol and does not want anything more than that. PAST MEDICAL HISTORY Diagnosis Date Coronary atherosclerosis of unspecified type of vessel, [place] or graft Coronary artery disease Diverticulosis of colon (without mention of hemorrhage) Diverticulosis Pure hypercholesterolemia Unspecified essential hypertension PAST SURGICAL HISTORY Procedure Laterality Date CORONARY ARTERY BYP W/VEIN AND ARTERY GRAFT 2 VEIN 1995 CABG, two grafts LAPAROSCOPY SURG CHOLECYSTECTOMY Cholecystectomy, lap RPR 1ST INGUN HRNA AGE 5 YRS/> REDUCIBLE Rt ing hernia MEDICATIONS: Current Outpatient Medications Medication Sig Dispense Refill cholecalciferol, vitamin D3, (VITAMIN D3 ORAL) Take by mouth. losartan (COZAAR) 100 mg tablet Take 100 mg by mouth once daily. atenolol (TENORMIN) 50 mg tablet Take 50 mg by mouth once daily. aspirin, enteric coated (ASPIRIN, ENTERIC COATED) 81 mg EC tablet Take 81 mg by mouth once daily. DOXYLAMINE SUCCINATE (SLEEP AID ORAL) Take 2 tablets by mouth at bedtime as needed. (Patient not taking: Reported on 12/21/2022) HYDROCHLOROTHIAZIDE 25 MG TAB Take one(1) tablet daily. (Patient not taking: Reported on 12/21/2022) 0 ZOCOR 20 MG TAB Take one(1) tablet daily. (Patient not taking: Reported on 12/21/2022) 0 No current facility-administered medications for this visit. ALLERGIES Allergen Reactions Iodine injectible BP 132/62 Pulse 71 Ht 5' 10.5[Patient reports.[ (1.79m) Wt 165 lb (74.8kg) SpO2 100% BMI 23.33 kg/(m2). PHYSICAL EXAM: General Appearance: Well appearing, alert, in no acute distress, well-hydrated, well nourished. Skin: Skin color, texture, turgor normal, no suspicious rashes. L thigh hematoma evolving, as pictured below: * The above image(s) of the LEFT THIGH was/were taken on 12/21/22, with the verbal permission of the patient, for use in clinical documentation purposes only using an encrypted, [facility] approved device. All efforts were made to exclude or minimize identifying information and respect patient modesty and privacy. Head: Normocephalic, no masses, lesions, tenderness or abnormalities. Eyes: Anicteric sclera. Extraocular movements are intact. Ears: External ears normal, hearing is adequate. Neck: Supple. Lungs: Breathing is easy and unlabored. Extremities: No deformities, clubbing or cyanosis. Trace edema to LLE. LLE hematoma as noted above. Peripheral Pulses: Capillary refill <2secs, peripheral pulses with doppler. Neurologic: Gait not observed - wheelchair. Normal cognition and motor skills. Sensation and strength grossly intact. ASSESSMENT/PLAN: (T14.8XXA) Hematoma (primary encounter diagnosis) Comment: Hematoma site cleansed and wrapped; In direct consultation with Dr. Lopez, discussed with pt that this will continue to evolve over the next several days-weeks; It does appear that the large blister is due to pop soon - advised pt again NOT to pop any blisters, as they will on their own; Drainage will likely be water yellow/pink/brown, and may be quite copious; Will continue dry dressing for now; Pt and educated on dressings - once a blister opens, will use Adaptic over open area, so dry gauze does not stick; Continue to wrap with Kerlix; Will refer to Wound Care for ongoing wound management; Discussed again that there is no active bleeding, and that the bleeding had stopped (likely) before he was transferred to [facility] - no concern for further internal bleeding at this time Plan: CONSULT TO WOUND CENTER (AG) FOLLOW UP: Justa will follow-up as needed. He is encouraged to call with any questions or concerns. The patient is currently taking a statin: N/A The patient is currently taking aspirin: N/A I spent a total of 45 minutes on the date of the service which included preparing to see the patient, [id number] patient car (more content not included)... Normal [facility]20[facility] JUSTA MARIANO ([id number]) 1945 M Date Time Provider Department 12/21/22 IVETT ALFREDO AGVASLAN During your visit today, we recorded the following information about you: Renetta Escobar 12/21/2022 10:47 AM Signed Faxed the wound care referral to [facility] today at [phone] and ph#[phone] Allergies As of Date: 12/21/2022 Noted Allergy Reaction IODINE 06/08/2005 Comments: injectible Date Reviewed: 12/21/2022 Reviewed by: Anita Luna LPN - Fully Assessed Reason for Visit: Referral Information [0665] Prescriptions as of 12/21/2022 - cholecalciferol, vitamin D3, (VITAMIN D3 ORAL) Take by mouth. - losartan (COZAAR) 100 mg tablet Take 100 mg by mouth once daily. - atenolol (TENORMIN) 50 mg tablet Take 50 mg by mouth once daily. - DOXYLAMINE SUCCINATE (SLEEP AID ORAL) Take 2 tablets by mouth at bedtime as needed. - aspirin, enteric coated (ASPIRIN, ENTERIC COATED) 81 mg EC tablet Take 81 mg by mouth once daily. - HYDROCHLOROTHIAZIDE 25 MG TAB Take one(1) tablet daily. - ZOCOR 20 MG TAB Take one(1) tablet daily. 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 Eosinophils/100 WBC (Bld) 2.2 % 0-5 [facility] Glucose [Mass/Vol] 127 mg/dL 74-106 [facility] Comment on above: Fasting Glucose resu lt greater than or equal to 126 mg/dL suggests DIABETES MELLITUS per A.D.A. criteria. Neutrophils (Bld) [#/Vol] 8.7 10*3/uL 2.0-7.7 [facility] Neutrophils/100 WBC (Bld) 65.5 % 47-70 [facility] Potassium [Moles/Vol] 3.9 mmol/L 3.5-5.1 [facility] Sodium [Moles/Vol] 140 mmol/L 136-145 [facility] WBC (Bld) [#/Vol] 13.3 10*3/uL 4.4-11.0 [facility] Blood erythrocytes count (nu mber/volume)Ordered By: Bandar Brandon on 12-20-2022 RBC (Bld) [#/Vol] 2.16 10*6/uL 4.6-6.2 [facility] Blood hemoglobin measurement (mass/volume)Ordered By: Bandar Brandon on 12-20-2022 Hemoglobin (Bld) [Mass/Vol] 6.8 g/dL 13.0-16.5 [facility] Blood lymphocytes/100 leukoc ytesOrdered By: Bandar Brandon on 12-20-2022 Lymphocytes/100 WBC (Bld) 20.6 % 19-41 [facility] Blood monocytes/100 leukocyt esOrdered By: Bandar Brandon on 12-20-2022 Monocytes/100 WBC (Bld) 9.3 % 0-10 [facility] Blood platelet mean volumeOr dered By: Bandar Brandon on 12-20-2022 Platelet mean volume (Bld) [Entitic vol] 9.7 fL 6.2-12.0 [facility] Determination of erythrocyte mean corpuscular volume (MCV)Ordered By: Bandar Brandon on 12-20-2022 MCV (RBC) [Entitic vol] 97.7 fL 80-94 [facility] Hematocrit Auto (Bld) [Volum e fraction]Ordered By: Bandar Brandon on 12-20-2022 Hematocrit (Bld) [Volume fraction] 21.1 % 40-54 [facility] Laboratory - Chemistry and C hemistry - challengeOrdered By: Bandar Brandon on 12-20-2022 CO2 [Moles/Vol] 27.0 mmol/L 21.0-32.0 [facility] Magnesium [Mass/Vol] 2.1 mg/dL 1.6-2.6 [facility] Urea nitrogen/Creatinine [Mass ratio] 18.5 mg/mg 10-20 [facility] Laboratory - Hematology and Cell countsOrdered By: Bandar Brandon on 12-20-2022 Erythrocyte distribution width (RBC) [Entitic vol] 44.4 fL 35.1-43.9 [facility] Erythrocyte distribution width (RBC) [Ratio] 12.8 % 11.6-14.6 [facility] Immature granulocytes/100 WBC (Bld) 1.800 % 0.0-0.9 [facility] Comment on above: IG% - Immature Granu locytes (promyelocytes, myelocytes and metamyelocytes) > 1% indicates that a LEFT SHIFT is Present. MCH (RBC) [Entitic mass] 31.5 pg 27.0-32.0 [facility] Nucleated RBC/100 WBC (Bld) [Ratio] 0.3 % 0-5 [facility] MCHC Auto (RBC) [Mass/Vol]Or dered By: Bandar Brandon on 12-20-2022 MCHC (RBC) [Mass/Vol] 32.2 g/dL 32-36 [facility] No Panel InformationOrdered By: Bandar Brandon on 12-20-2022 Estimated Creatinine Clearance Calc 51.51 ml/min [facility] Estimated GFR (MDRD) Amer 73 mL/min >60 [facility] Estimated GFR (MDRD) Non-Af Amer 60 mL/min >60 [facility] Thyroid Stimulating Hormone (TSH) 1.95 uIU/mL 0.358-3.74 [facility] Troponin I High Sensitivity 9 pg/mL 3.0-78.0 [facility] Comment on above: Please Note: New Heidi t Units and Gender Specific Reference Ranges. For more information see Policy Stat Procedure [place] High Sensitivity Troponin (TNIH) and attachments. Platelets bldOrdered By: Nicola Brandon on 12-20-2022 Platelets (Bld) [#/Vol] 191 10*3/uL 150-450 [facility] Serum or plasma calcium cherise urement (mass/volume)Ordered By: Bandar Brandon on 12-20-2022 Calcium [Mass/Vol] 8.2 mg/dL 8.5-10.1 [facility] Serum or plasma creatinine m easurement (mass/volume)Ordered By: Bandar Brandon on 12-20-2022 Creatinine [Mass/Vol] 1.24 mg/dL 0.70-1.30 [facility] Comment on above: The validity of the calculated GFR & GFRAA in patients over 70 years has not been determined. Clinical correlation is essential. Serum or plasma urea nitroge n measurement (mass/volume)Ordered By: Bandar Brandon on 12-20-2022 Urea nitrogen [Mass/Vol] 23 mg/dL 7-18 [facility] Thin prep Papanicolaou smear with manual screeningOrdered By: Bandar Brandon on 12-20-2022 Thin prep Papanicolaou smear with manual screening 5 5-15 [facility] Basic metabolic 2000 panelon 12-18-2022 Anion gap [Moles/Vol] 11 mmol/L Normal 9-18 [facility] Comment on above: Order Comment: Speci men Type: BLOOD SPECIMENOrdering Facility: [facility] Address: [address] [address] Performed By: #### 2 4321-2 ####[facility]ATORYCLIA [id number] [place] [address] [place] Calcium [Mass/Vol] 8.6 mg/dL Normal 8.5-10.2 [facility] Comment on above: Order Comment: Speci men Type: BLOOD SPECIMENOrdering Facility: [facility] Address: [address] [place] [address] Performed By: #### 2 4321-2 ####[facility]ORATORYCLIA [id number] [place] [address] [place] Chloride [Moles/Vol] 105 mmol/L Normal 97-105 [facility] Comment on above: Order Comment: Speci men Type: BLOOD SPECIMENOrdering Facility: [facility] Address: [address] [place] [address] Performed By: #### 2 4321-2 ####[facility]ORATORYCLIA [id number] [place] [address] [place] CO2 [Moles/Vol] 22 mmol/L Normal 22-30 [facility] Comment on above: Order Comment: Speci men Type: BLOOD SPECIMENOrdering Facility: [facility] Address: [address] [place] [address] Performed By: #### 2 4321-2 ####[facility]ORATORYCLIA [id number] [place] [address] [place] Creatinine [Mass/Vol] 0.89 mg/dL Normal 0.73-1.22 [facility] Comment on above: Order Comment: Speci men Type: BLOOD SPECIMENOrdering Facility: [facility] Address: [address] [place] [address] Performed By: #### 2 4321-2 ####[facility]ORATORYCLIA [id number] [address] [place] ESTIMATED GLOMERULAR FILTRATION RATE 88 mL/min/1.73m??? Normal >=60 [facility] Comment on above: Order Comment: Speci men Type: BLOOD SPECIMENOrdering Facility: [facility] Address: [address] [place], [place] [phone] Result Comment: Melba mated Glomerular Filtration Rate (eGFR) is calculated using the 2020 CKD-EPI creatinine equation. This equation utilizes serum creatinine, sex, and age as parameters. The creatinine assay has traceable calibration to isotope dilution-mass spectrometry. Refer to KDIGO guidelines for clinical interpretation. In patients with unstable renal function, e.g. those with acute kidney injury, the eGFR may not accurately reflect actual GFR. Performed By: #### 2 4321-2 ####[facility]ORATORYCLIA [id number] [place] [address] [place] Glucose [Mass/Vol] 171 mg/dL High 74-99 [facility] Comment on above: Order Comment: Alena salas Type: BLOOD SPECIMENOrdering Facility: [facility] Address: [address] [place] [address] Result Comment: The [place] Diabetes Association (ADA) provides guidance for cutoff values for fasting glucose and random glucose. The ADA defines fasting as no caloric intake for at least 8 hours. Fasting plasma glucose results between 100 to 125 mg/dL indicate increased risk for diabetes (prediabetes). Fasting plasma glucose results greater than or equal to 126 mg/dL meet the criteria for diagnosis of diabetes. In the absence of unequivocal hyperglycemia, results should be confirmed by repeat testing. In a patient with classic symptoms of hyperglycemia or hyperglycemic crisis, random plasma glucose results greater than or equal to 200 mg/dL meet the criteria for diagnosis of diabetes. Reference: Standards of Medical Care in Diabetes 2016, [place] [employer]. Diabetes Care. 2016.39(Suppl 1). Performed By: #### 2 4321-2 ####[facility]ORATORYCLIA [id number] [place] [address] [place] Potassium [Moles/Vol] 4.6 mmol/L Normal 3.7-5.1 [facility] Comment on above: Order Comment: Alena salas Type: BLOOD SPECIMENOrdering Facility: [facility] Address: [address] [phone] Performed By: #### 2 4321-2 ####[facility]ORATORYCLIA [id number] [place] [address] [place] [facility] Sodium [Moles/Vol] 138 mmol/L Normal 136-144 [facility] Comment on above: Order Comment: Speci men Type: BLOOD SPECIMENOrdering Facility: [facility] Address: [address] [phone] Performed By: #### 2 4321-2 ####[facility]ORATORYCLIA [id number] [address] [id number] [place] [facility] Urea nitrogen [Mass/Vol] 19 mg/dL Normal 9-24 [facility] Comment on above: Order Comment: Speci men Type: BLOOD SPECIMENOrdering Facility: [facility] Address: [address] [address] Performed By: #### 2 4321-2 ####[facility]ORATORYCLIA [id number] [place] [address] [facility] CASE MANAGEMon 12-18-2022 CASE MANAGEM HNO ID: [id number] Author: Breezy Pedersen RN Service: ? Author Type: Registered Nurse Type: Care Mgt Progress Note Filed: 12/20/2022 10:55 AM Note Text: CARE MANAGEMENT UTILIZATION REVIEW COMMITTEE PROVIDER LIABLE (Admission Status Discrepancy Review) Admission Date: 12/17/2022 Patient's Initial Order is: Inpatient Date Received: December 20, 2022 Date Reviewed: December 20, 2022 Under the authority of the Utilization Management Plan, the Physician Advisor, Dr. Jhonatan Beltran, has reviewed the medical record of the above patient. The following recommendation has been made by the Physician Advisor, based upon the current available medical information as of the date of this determination. The patient is appropriate for: Observation Rationale for this decision: Lack of medical necessity for inpatient admission and less than 2 midnight stay SIGNATURE: Breezy Pedersen RN PATIENT NAME: Justa Mariano DATE: December 20, 2022 TIME: 10:54 AM Disclaimer: The information in this determination is to be used for utilization management purposes only. The information and recommendation is made pursuant to Medicare Hospital Conditions of Participation (442 CFR Part 482) and is neither a judgment nor an assessment with regard to the appropriateness or quality of the clinical care. Nothing in this document may be used to limit clinical services provided to the above named patient. This form should be used as one part of the process utilized to ensure compliance with [facility] policy regarding Inpatient Admission and Observation Services. The definitions of Inpatient and Observation used in making the determination above are those provided in Medicare Benefit Policy Manual Chapter 1, Section 1 and 10, Chapter 6, Section 20, and the Medicare Claims Processing Manual Chapter 1, Section 50.3 and Chapter 4, Section 290. This recommendation should be considered as only one factor in determining the patient's final level of service along with other pertinent documentation such as the treating physician's order as documented evidence of concurrence. Normal [facility] CBC panel Auto (Bld)on 12-18 Erythrocyte distribution width (RBC) [Ratio] 12.6 % Normal 11.5-15.0 [facility] Comment on above: Order Comment: Alena salas Type: BLOOD SPECIMEN [facility] Address: [address] [place] [address] Performed By: #### 5 8410-2 #### [facility] CLIA [id number] [address] [place] [address] Hematocrit (Bld) [Volume fraction] 26.3 % Low 39.0-51.0 [facility] Comment on above: Order Comment: Alena salas Type: BLOOD SPECIMEN [facility] Address: [address] [place] [address] Performed By: #### 5 8410-2 #### [facility] CLIA [id number] [address] [place] [address] Hemoglobin (Bld) [Mass/Vol] 8.7 g/dL Low 13.0-17.0 [facility] Comment on above: Order Comment: Alena salas Type: BLOOD SPECIMEN [facility] Address: [address] [place] [address] Performed By: #### 5 8410-2 #### [facility] CLIA [id number] [address] [place] [address] MCH (RBC) [Entitic mass] 31.0 pg Normal 26.0-34.0 [facility] Comment on above: Order Comment: Speci men Type: BLOOD SPECIMEN [facility] Address: [address] [place] [address] Performed By: #### 5 8410-2 #### [facility] CLIA [id number] [address] MCHC (RBC) [Mass/Vol] 33.1 g/dL Normal 30.5-36.0 [facility] Comment on above: Order Comment: Speci men Type: BLOOD SPECIMEN [facility] Address: [address] [place] [address] Performed By: #### 5 8410-2 #### [facility] CLIA [id number] [address] MCV (RBC) [Entitic vol] 93.6 fL Normal 80.0-100.0 [facility] Comment on above: Order Comment: Speci men Type: BLOOD SPECIMEN [facility] Address: [address] [place] [address] Performed By: #### 5 8410-2 #### [facility] CLIA [id number] [address] Nucleated RBC (Bld) [#/Vol] 10*3/uL Normal <0.01 [facility] Comment on above: Order Comment: Speci men Type: BLOOD SPECIMEN [facility] Address: [address] [place] [address] Performed By: #### 5 8410-2 #### [facility] CLIA [id number] [address] Platelet mean volume (Bld) [Entitic vol] 9.4 fL Normal 9.0-12.7 [facility] Comment on above: Order Comment: Speci men Type: BLOOD SPECIMEN [facility] Address: [address] [place] [address] Performed By: #### 5 8410-2 #### [facility] CLIA [id number] [address] [facility] Platelets (Bld) [#/Vol] 209 10*3/uL Normal 150-400 [facility] Comment on above: Order Comment: Speci men Type: BLOOD SPECIMEN [facility] Address: [address] [place] [address] Performed By: #### 5 8410-2 #### [facility] CLIA [id number] [address] RBC (Bld) [#/Vol] 2.81 10*6/uL Low 4.20-6.00 [facility] Comment on above: Order Comment: Speci men Type: BLOOD SPECIMEN [facility] Address: [address] [place] [address] Performed By: #### 5 8410-2 #### [facility] CLIA [id number] [address] WBC (Bld) [#/Vol] 14.90 10*3/uL High 3.70-11.00 [facility] Comment on above: Order Comment: Speci men Type: BLOOD SPECIMEN [facility] Address: [address] [place] [address] Performed By: #### 5 8410-2 #### [facility] CLIA [id number] [address] Erythrocyte distribution width (RBC) [Ratio] 12.5 % Normal 11.5-15.0 [facility] Comment on above: Order Comment: Speci men Type: BLOOD SPECIMEN [facility] Address: [address] [place] [address] Performed By: #### 5 8410-2 #### [facility] CLIA [id number] [address] Hematocrit (Bld) [Volume fraction] 29.4 % Low 39.0-51.0 [facility] Comment on above: Order Comment: Speci men Type: BLOOD SPECIMEN [facility] Address: [address] [address] Performed By: #### 5 8410-2 #### [facility] CLIA [id number] [address] Hemoglobin (Bld) [Mass/Vol] 9.9 g/dL Low 13.0-17.0 [facility] Comment on above: Order Comment: Speci men Type: BLOOD SPECIMEN [facility] Address: [address] [place] [address] Performed By: #### 5 8410-2 #### [facility] CLIA [id number] [address] MCH (RBC) [Entitic mass] 31.2 pg Normal 26.0-34.0 [facility] Comment on above: Order Comment: Speci men Type: BLOOD SPECIMEN [facility] Address: [address] [place] [address] Performed By: #### 5 8410-2 #### [facility] CLIA [id number] [address] MCHC (RBC) [Mass/Vol] 33.7 g/dL Normal 30.5-36.0 [facility] Comment on above: Order Comment: Speci men Type: BLOOD SPECIMEN [facility] Address: [address] [place] [address] Performed By: #### 5 8410-2 #### [facility] CLIA [id number] [address] MCV (RBC) [Entitic vol] 92.7 fL Normal 80.0-100.0 [facility] Comment on above: Order Comment: Speci men Type: BLOOD SPECIMEN [facility] Address: [address] [place] [address] Performed By: #### 5 8410-2 #### [facility] CLIA [id number] [address] Nucleated RBC (Bld) [#/Vol] 10*3/uL Normal <0.01 [facility] Comment on above: Order Comment: Speci men Type: BLOOD SPECIMEN [facility] Address: [address] [address] Performed By: #### 5 8410-2 #### [facility] CLIA [id number] [address] [place] [address] [place] Platelet mean volume (Bld) [Entitic vol] 9.4 fL Normal 9.0-12.7 [facility] Comment on above: Order Comment: Speci men Type: BLOOD SPECIMEN [facility] Address: [address] [place] [address] Performed By: #### 5 8410-2 #### [facility] CLIA [id number] [address] [place] Platelets (Bld) [#/Vol] 222 10*3/uL Normal 150-400 [facility] Comment on above: Order Comment: Speci men Type: BLOOD SPECIMEN [facility] Address: [address] [address] Performed By: #### 5 8410-2 #### [facility] CLIA [id number] [address] [place] RBC (Bld) [#/Vol] 3.17 10*6/uL Low 4.20-6.00 [facility] Comment on above: Order Comment: Speci men Type: BLOOD SPECIMEN [facility] Address: [address] [address] Performed By: #### 5 8410-2 #### [facility] CLIA [id number] [address] [place] [address] [place] WBC (Bld) [#/Vol] 13.40 10*3/uL High 3.70-11.00 [facility] Comment on above: Order Comment: Speci men Type: BLOOD SPECIMEN [facility] Address: [address] [address] Performed By: #### 5 8410-2 #### [facility] [id number] [address] CNDSon 12-18-2022 [facility] HNO ID: [id number] Author: Marty Guerrero MD Service: General Surgery Author Type: Resident Type: Discharge Summary Filed: 12/18/2022 11:31 AM Note Text: Attestation signed by Sandra Lopez MD at 12/18/2022 11:45 AM Attending Note I personally saw and examined the patient. I reviewed the resident's note. I agree with the resident's assessment and plan unless otherwise noted. Signature: Sandra Lopez MD Date: 12/18/2022 Time: 11:45 AM DISCHARGE SUMMARY PATIENT NAME: Justa Mariano Code Status: Not on file Highest Readmission Risk Score: 9 The 30 day readmissions risk score is derived from an internally validated risk model which evaluates patient level characteristics, utilization history, medication orders and lab results up until the day of discharge. Patients with a score of 40 or above are considered highest risk for readmission. Specific patient level drivers will be listed at the bottom of the summary. Admission Information Admission Information ADMIT DATE: 12/17/2022 DISCHARGE DATE: 12/18/2022 MY DOCTORS AND MEDICAL TEAM: [facility] Doctor: Sandra Lopez MD Primary Care Provider: No primary care provider on file. My Medical Team Members: Treatment Team: Attending Provider: Sandra Lopez MD MY CONDITION AT DISCHARGE: Stable REASON I WAS IN THE HOSPITAL: Left thigh hematoma SUMMARY OF WHAT HAPPENED WHILE I WAS IN THE HOSPITAL: Patient was admitted to the hospital following his left thigh hematoma for observation. He was observed on the regular nursing floor. The patient was stable and his labs were stable as well indicating the bleeding had stopped. He was seen by vascular surgery and deemed stable for discharge. OTHER PROBLEMS/DIAGNOSIS: Principal Problem: Thigh hematoma, left, initial encounter Resolved Problems: * No resolved hospital problems. * OPERATIONS PERFORMED WHILE IN THE HOSPITAL: IMPORTANT TEST/PROCEDURES: No procedures performed TEST RESULTS NOT AVAILABLE AT THIS TIME: No pending results Discharge Disposition Discharge Disposition: Home With Self Care Activity When You Leave the Hospital Other: May shower. Let blisters drain on their own, do not rub or pop the blisters. If the blisters pop, may let water run down and can pat dry. Continue soft wrap for now until seen by Dr. Lopez in office. Diet Instructions Resume your pre-hospital diet For Pain When You Leave the Hospital If you become constipated, you may use any veme-usm-mcdxwkh treatment such as Milk of Magnesia, Sennakot, Prune Juice, Suppositories, etc. in addition to the stool softener/fiber supplement Use acetaminophen (Tylenol) as recommended on the bottle Use ibuprofen (Motrin, Advil) as recommended on the bottle You should use an sfbe-xep-bfjxhes stool softener (Docusate sodium) and/or a fiber supplement (Metamucil, Fiber Con) every day while taking prescribed pain medication Wound/Surgical Site Care Some bleeding from the wound/surgical site can be expected. If excessive, see a doctor at once Some bleeding from the wound/surgical site can be expected. If you soak a gauze bandage in one hour, see a doctor at once Wash your hands frequently, especially before touching your incision, after using restroom and before eating Call Your Doctor If There is an unusual odor from the wound area There is severe pain at the operative site You have lightheadedness, fainting, or confusion You have persistent nausea/vomiting over 24 hours You have persistent or heavy bleeding Your temperature is greater than 101F Follow Up Appointments Follow-Up Appointment When: In 2 days Sandra Lopez MD [phone] [address] [facility] [address] [facility] [address] PCP Requested Referral Additional Provider to Provider Information: No notes on file Treatment Team: Attending Provider: Sandra Lopez MD Transitions of Care Critical Issues: None LABS AND PROCEDURES PENDING AT DISCHARGE: No pending results. FOLLOW-UP APPOINTMENTS ALREADY SCHEDULED WITH A [facility] PROVIDER: No future appointments. ALLERGIES Allergen Reactions Iodine injectible DISCHARGE MEDICATION: Medication List CONTINUE taking these medications aspirin, enteric coated 81 mg EC tablet Commonly known as: ASPIRIN, ENTERIC COATED atenolol 50 mg tablet Commonly known as: TENORMIN hydroCHLOROthiazide 25 mg tablet losartan 100 mg tablet Commonly known as: COZAAR SLEEP AID ORAL VITAMIN D3 ORAL ZOCOR 20 mg tablet Generic drug: simvastatin PHYSICAL EXAM: GENERAL: resting comfortably, in no acute distress HEENT: normocephalic, atraumatic, EOMI NECK: trachea midline, no JVD LUNGS: Unlabored breathing, equal chest rise bilaterally CARDIAC: Regular rate (more content not included)... Normal [facility] Absolute lymphocyte countOrd ered By: Kathryn Gloria on 12-17-2022 Lymphocytes Auto (Unsp spec) [#/Vol] 3.27 10*3/uL 0.83-4.51 [facility] Basic metabolic 2000 panelon 12-17-2022 Anion gap [Moles/Vol] 10 mmol/L Normal 9-18 [facility] Comment on above: Order Comment: Speci men Type: BLOOD SPECIMEN Ordering Facility: [facility] Address: [address] [address] Performed By: #### 2 4321-2 #### [facility] CLIA [id number] 1 [place] [address] [place] Calcium [Mass/Vol] 8.9 mg/dL Normal 8.5-10.2 [facility] Comment on above: Order Comment: Speci men Type: BLOOD SPECIMEN Ordering Facility: [facility] Address: [address] [address] Performed By: #### 2 4321-2 #### [facility] CLIA [id number] 1 [place] [address] [place] Chloride [Moles/Vol] 107 mmol/L High 97-105 [facility] Comment on above: Order Comment: Speci men Type: BLOOD SPECIMEN Ordering Facility: [facility] Address: [address] [address] Performed By: #### 2 4321-2 #### [facility] CLIA [id number] [address] [place] CO2 [Moles/Vol] 23 mmol/L Normal 22-30 [facility] Comment on above: Order Comment: Speci men Type: BLOOD SPECIMEN Ordering Facility: [facility] Address: [address] [address] Performed By: #### 2 4321-2 #### [facility] CLIA [id number] [address] OF [facility] Creatinine [Mass/Vol] 0.94 mg/dL Normal 0.73-1.22 [facility] Comment on above: Order Comment: Speci men Type: BLOOD SPECIMEN Ordering Facility: [facility] Address: [address] [place] [address] Performed By: #### 2 4321-2 #### [facility] CLIA [id number] [address] [place] [address] ESTIMATED GLOMERULAR FILTRATION RATE 83 mL/min/1.73m??? Normal >=60 [facility] Comment on above: Order Comment: Speci men Type: BLOOD SPECIMEN Ordering Facility: [facility] Address: [address] [place] [address] Result Comment: Melba mated Glomerular Filtration Rate (eGFR) is calculated using the 2020 CKD-EPI creatinine equation. This equation utilizes serum creatinine, sex, and age as parameters. The creatinine assay has traceable calibration to isotope dilution-mass spectrometry. Refer to KDIGO guidelines for clinical interpretation. In patients with unstable renal function, e.g. those with acute kidney injury, the eGFR may not accurately reflect actual GFR. Performed By: #### 2 4321-2 #### [facility] CLIA [id number] [address] [place] Glucose [Mass/Vol] 167 mg/dL High 74-99 [facility] Comment on above: Order Comment: Speci men Type: BLOOD SPECIMEN Ordering Facility: [facility] Address: [address] [place] [address] Result Comment: The [place] Diabetes Association (ADA) provides guidance for cutoff values for fasting glucose and random glucose. The ADA defines fasting as no caloric intake for at least 8 hours. Fasting plasma glucose results between 100 to 125 mg/dL indicate increased risk for diabetes (prediabetes). Fasting plasma glucose results greater than or equal to 126 mg/dL meet the criteria for diagnosis of diabetes. In the absence of unequivocal hyperglycemia, results should be confirmed by repeat testing. In a patient with classic symptoms of hyperglycemia or hyperglycemic crisis, random plasma glucose results greater than or equal to 200 mg/dL meet the criteria for diagnosis of diabetes. Reference: Standards of Medical Care in Diabetes 2016, [place] [employer]. Diabetes Care. 2016.39(Suppl 1). Performed By: #### 2 4321-2 #### [facility] CLIA [id number] 1 [place] [address] [place] Potassium [Moles/Vol] 4.4 mmol/L Normal 3.7-5.1 [facility] Comment on above: Order Comment: Alena [facility] Type: BLOOD SPECIMEN Ordering Facility: [facility] Address: [address] [place] [address] Performed By: #### 2 1-2 #### [facility] CLIA [id number] 1 [place] [address] [place] Sodium [Moles/Vol] 140 mmol/L Normal 136-144 [facility] Comment on above: Order Comment: Levii men Type: BLOOD SPECIMEN Ordering Facility: [facility] Address: [address] [address] Performed By: #### 2 4321-2 #### [facility] CLIA [id number] 1 [place] [address] [place] Urea nitrogen [Mass/Vol] 20 mg/dL Normal 9-24 [facility] Comment on above: Order Comment: Alena men Type: BLOOD SPECIMEN Ordering Facility: [facility] Address: [address] [place] [address] Performed By: #### 2 4321-2 #### [facility] CLIA [id number] 1 [place] [address] [place] Basophil percentageOrdered B y: Kathryn Gloria on 12-17-2022 Basophils/100 WBC (Bld) 0.7 % 0-1 [facility] Bilirubin [Mass/Vol] 0.70 mg/dL 0.20-1.00 [facility] Comment on above: For patients on eltr ombopag therapy, use of Dimension [place] TBIL is not recommended. Chloride [Moles/Vol] 107 mmol/L 98-107 [facility] Eosinophils/100 WBC (Bld) 2.6 % 0-5 [facility] Glucose [Mass/Vol] 153 mg/dL 74-106 [facility] Comment on above: Fasting Glucose resu lt greater than or equal to 126 mg/dL suggests DIABETES MELLITUS per A.D.A. criteria. Lactate [Moles/Vol] 2.0 mmol/L 0.4-2.0 [facility] Comment on above: tried to call result x 4. no answer x4 Neutrophils (Bld) [#/Vol] 7.5 10*3/uL 2.0-7.7 [facility] Neutrophils/100 WBC (Bld) 59.4 % 47-70 [facility] Potassium [Moles/Vol] 4.3 mmol/L 3.5-5.1 [facility] Protein [Mass/Vol] 6.2 g/dL 6.4-8.2 [facility] Sodium [Moles/Vol] 140 mmol/L 136-145 [facility] WBC (Bld) [#/Vol] 12.6 10*3/uL 4.4-11.0 [facility] Blood erythrocytes count (nu mber/volume)Ordered By: Kathryn Gloria on 12-17-2022 RBC (Bld) [#/Vol] 4.09 10*6/uL 4.6-6.2 [facility] Blood hemoglobin measurement (mass/volume)Ordered By: Kathryn Gloria on 12-17-2022 Hemoglobin (Bld) [Mass/Vol] 12.6 g/dL 13.0-16.5 [facility] Blood lymphocytes/100 leukoc ytesOrdered By: Kathryn Gloria on 12-17-2022 Lymphocytes/100 WBC (Bld) 26.0 % 19-41 [facility] Blood monocytes/100 leukocyt esOrdered By: Kathryn Gloria on 12-17-2022 Monocytes/100 WBC (Bld) 10.7 % 0-10 [facility] Blood platelet mean volumeOr dered By: Kathryn Gloria on 12-17-2022 Platelet mean volume (Bld) [Entitic vol] 9.6 fL 6.2-12.0 [facility] CBC panel Auto (Bld)on 12-17 Erythrocyte distribution width (RBC) [Ratio] 12.5 % Normal 11.5-15.0 [facility] Comment on above: Order Comment: Alena salas Type: BLOOD SPECIMEN Ordering Facility: [facility] Address: [address] [place] [address] Performed By: #### 5 8410-2 #### [facility] CLIA [id number] [address] Hematocrit (Bld) [Volume fraction] 32.6 % Low 39.0-51.0 [facility] Comment on above: Order Comment: Alena salas Type: BLOOD SPECIMEN Ordering Facility: [facility] Address: [address] [place] [address] Performed By: #### 5 8410-2 #### [facility] CLIA [id number] [address] OF [facility] Hemoglobin (Bld) [Mass/Vol] 10.9 g/dL Low 13.0-17.0 [facility] Comment on above: Order Comment: Speci men Type: BLOOD SPECIMEN Ordering Facility: [facility] Address: [address] [place] [address] Performed By: #### 5 8410-2 #### [facility] CLIA [id number] [address] OF [facility] MCH (RBC) [Entitic mass] 31.0 pg Normal 26.0-34.0 [facility] Comment on above: Order Comment: Speci men Type: BLOOD SPECIMEN Ordering Facility: [facility] Address: [address] [address] Performed By: #### 5 8410-2 #### [facility] CLIA [id number] [address] MCHC (RBC) [Mass/Vol] 33.4 g/dL Normal 30.5-36.0 [facility] Comment on above: Order Comment: Speci men Type: BLOOD SPECIMEN Ordering Facility: [facility] Address: [address] [address] Performed By: #### 5 8410-2 #### [facility] CLIA [id number] [address] MCV (RBC) [Entitic vol] 92.6 fL Normal 80.0-100.0 [facility] Comment on above: Order Comment: Speci men Type: BLOOD SPECIMEN Ordering Facility: [facility] Address: [address] [address] Performed By: #### 5 8410-2 #### [facility] CLIA [id number] [address] Nucleated RBC (Bld) [#/Vol] 10*3/uL Normal <0.01 [facility] Comment on above: Order Comment: Speci men Type: BLOOD SPECIMEN Ordering Facility: [facility] Address: [address] [address] Performed By: #### 5 8410-2 #### [facility] CLIA [id number] [address] Platelet mean volume (Bld) [Entitic vol] 9.2 fL Normal 9.0-12.7 [facility] Comment on above: Order Comment: Speci men Type: BLOOD SPECIMEN Ordering Facility: [facility] Address: [address] [place] [address] Performed By: #### 5 8410-2 #### [facility] CLIA [id number] [address] Platelets (Bld) [#/Vol] 233 10*3/uL Normal 150-400 [facility] Comment on above: Order Comment: Speci men Type: BLOOD SPECIMEN Ordering Facility: [facility] Address: [address] [place] [address] Performed By: #### 5 8410-2 #### [facility] CLIA [id number] [address] OF [facility] RBC (Bld) [#/Vol] 3.52 10*6/uL Low 4.20-6.00 [facility] Comment on above: Order Comment: Speci men Type: BLOOD SPECIMEN Ordering Facility: [facility] Address: [address] [place] [address] Performed By: #### 5 8410-2 #### [facility] CLIA [id number] [address] WBC (Bld) [#/Vol] 12.32 10*3/uL High 3.70-11.00 [facility] Comment on above: Order Comment: Speci men Type: BLOOD SPECIMEN Ordering Facility: [facility] Address: [address] [place] [address] Performed By: #### 5 8410-2 #### [facility] CLIA [id number] [address] Erythrocyte distribution width (RBC) [Ratio] 12.4 % Normal 11.5-15.0 [facility] Comment on above: Order Comment: Speci men Type: BLOOD SPECIMEN Ordering Facility: [facility] Address: [address] [place] [address] Performed By: #### 5 8410-2 #### [facility] CLIA [id number] [address] Hematocrit (Bld) [Volume fraction] 35.8 % Low 39.0-51.0 [facility] Comment on above: Order Comment: Speci men Type: BLOOD SPECIMEN Ordering Facility: [facility] Address: [address] [place] [address] Performed By: #### 5 8410-2 #### [facility] CLIA [id number] [address] Hemoglobin (Bld) [Mass/Vol] 12.0 g/dL Low 13.0-17.0 [facility] Comment on above: Order Comment: Speci men Type: BLOOD SPECIMEN Ordering Facility: [facility] Address: [address] [place] [address] Performed By: #### 5 8410-2 #### [facility] CLIA [id number] [address] MCH (RBC) [Entitic mass] 31.4 pg Normal 26.0-34.0 [facility] Comment on above: Order Comment: Speci men Type: BLOOD SPECIMEN Ordering Facility: [facility] Address: [address] [place] [address] Performed By: #### 5 8410-2 #### [facility] CLIA [id number] [address] MCHC (RBC) [Mass/Vol] 33.5 g/dL Normal 30.5-36.0 [facility] Comment on above: Order Comment: Speci men Type: BLOOD SPECIMEN Ordering Facility: [facility] Address: [address] [place] [address] Performed By: #### 5 8410-2 #### [facility] CLIA [id number] [address] MCV (RBC) [Entitic vol] 93.7 fL Normal 80.0-100.0 [facility] Comment on above: Order Comment: Speci men Type: BLOOD SPECIMEN Ordering Facility: [facility] Address: [address] [place] [address] Performed By: #### 5 8410-2 #### [facility] CLIA [id number] [address] Nucleated RBC (Bld) [#/Vol] 10*3/uL Normal <0.01 [facility] Comment on above: Order Comment: Speci men Type: BLOOD SPECIMEN Ordering Facility: [facility] Address: [address] [address] Performed By: #### 5 8410-2 #### [facility] CLIA [id number] [address] [place] Platelet mean volume (Bld) [Entitic vol] 9.3 fL Normal 9.0-12.7 [facility] Comment on above: Order Comment: Speci men Type: BLOOD SPECIMEN Ordering Facility: [facility] Address: [address] [address] Performed By: #### 5 8410-2 #### [facility] CLIA [id number] [address] [place] Platelets (Bld) [#/Vol] 242 10*3/uL Normal 150-400 [facility] Comment on above: Order Comment: Speci men Type: BLOOD SPECIMEN Ordering Facility: [facility] Address: [address] [address] Performed By: #### 5 8410-2 #### [facility] CLIA [id number] [address] [place] RBC (Bld) [#/Vol] 3.82 10*6/uL Low 4.20-6.00 [facility] Comment on above: Order Comment: Speci men Type: BLOOD SPECIMEN Ordering Facility: [facility] Address: [address] [address] Performed By: #### 5 8410-2 #### [facility] CLIA [id number] [address] [place] WBC (Bld) [#/Vol] 16.74 10*3/uL High 3.70-11.00 [facility] Comment on above: Order Comment: Speci men Type: BLOOD SPECIMEN Ordering Facility: [facility] Address: [address] [place] [address] Performed By: #### 5 8410-2 #### [facility] CLIA [id number] 1 [place] [address] [place] Determination of erythrocyte mean corpuscular volume (MCV)Ordered By: Kathryn Gloria on 12-17-2022 MCV (RBC) [Entitic vol] 94.9 fL 80-94 [facility] ED NOTEon 12-17-2022 ED NOTE HNO ID: [id number] Author: Ila You, RN Service: Emergency Medicine Author Type: Registered Nurse Type: ED Notes Filed: 12/17/2022 7:52 PM Note Text: Report called to 4200 RN. No further questions at this time. [facility] ED NOTE HNO ID: [id number] Author: Ila You RN Service: Emergency Medicine Author Type: Registered Nurse Type: ED Notes Filed: 12/17/2022 7:50 PM Note Text: Pt assessed at this time by Mitzi Hayes RN and this RN at shift change. Pt noted to have blistering to affected area. MD notified. [facility] ED NOTE HNO ID: [id number] Author: Carlos Flores RN Service: ? Author Type: Registered Nurse Type: ED Notes Filed: 12/17/2022 4:52 PM Note Text: Bed: -ED Expected date: Expected time: Means of arrival: Comments: Lois lilia [facility] ED PROV NOTEon 12-17-2022 ED PROV NOTE HNO ID: [id number] Author: Opal Deleon MD Service: Emergency Medicine Author Type: Physician Type: ED Provider Notes Filed: 12/25/2022 2:39 PM Note Text: ED Provider Note Patient Name: Justa Mariano : 1945 SERVICE DATE: 12/17/22 History Patient presents with: Functional Transfers This patient is a 77-year-old male who presents to the emergency department via EMS as a transfer from outside hospital for evaluation of a left lower extremity intramuscular hematoma. The patient was reportedly climbing a wooden fence. He believes that he may have hit his leg against a fence. After this, the patient was ambulatory. He randomly noticed a burning sensation in his left lower extremity. He looked down and noticed that his left lower extremity was swollen. For this reason, he called EMS. At an outside facility, a CT of the abdomen pelvis with runoffs to the bilateral lower extremities was done and this showed a large intramuscular hematoma. The radiology read states that this may have been from the profundus femoris artery. Because the outside facility did not have vascular surgery, he was transferred to our hospital. At this time, he is endorsing pain in his left lower extremity. He denies any numbness or tingling. The patient denies hitting his head or losing consciousness. PAST MEDICAL HISTORY Diagnosis Date Coronary atherosclerosis of unspecified type of vessel, little river or graft Coronary artery disease Diverticulosis of colon (without mention of hemorrhage) Diverticulosis Pure hypercholesterolemia Unspecified essential hypertension PAST SURGICAL HISTORY Procedure Laterality Date CABG, ARTERY-VEIN, TWO 1995 CABG, two grafts LAPAROSCOPIC CHOLEYCYSTECTOMY Cholecystectomy, lap REPAIR ING HERNIA,5+Y/O,REDUCIBL Rt ing hernia FAMILY HISTORY Problem Relation Age of Onset Coronary Artery Disease Brother Social History Tobacco Use Smoking status: Former Packs/day: 1.00 Years: 5.00 Total pack years: 5.00 Types: Cigarettes Quit date: 06/08/1967 Years since quittin.5 Smokeless tobacco: Current Types: Chew Tobacco comments: Smoked while in [place]; Chews for anxiety relief. Substance and Sexual Activity Alcohol use: No Drug use: No Sexual activity: Never ALLERGIES Allergen Reactions Iodine injectible Review of Systems Constitutional: Negative for chills and fever. HENT: Negative for congestion, sinus pressure and sinus pain. Eyes: Negative for pain, redness and visual disturbance. Respiratory: Negative for cough and shortness of breath. Cardiovascular: Negative for chest pain, palpitations and leg swelling. Gastrointestinal: Negative for abdominal pain, nausea and vomiting. Genitourinary: Negative for dysuria and hematuria. Musculoskeletal: Negative for neck pain and neck stiffness. Physical Exam Vitals [12/17/22 1656] BP Pulse Temp Temp src Resp SpO2 Weight Height 154/98 63 36.4 ?C (97.5 ?F) Oral 18 98 % 81.2 kg (179 lb) 1.778 m (5' 10) Physical Exam Constitutional: General: He is not in acute distress. HENT: Head: Normocephalic and atraumatic. Right Ear: External ear normal. Left Ear: External ear normal. Nose: Nose normal. No congestion. Mouth/Throat: Mouth: Mucous membranes are moist. Pharynx: Oropharynx is clear. No oropharyngeal exudate. Eyes: General: No scleral icterus. Right eye: No discharge. Left eye: No discharge. Extraocular Movements: Extraocular movements intact. Pupils: Pupils are equal, round, and reactive to light. Cardiovascular: Rate and Rhythm: Normal rate and regular rhythm. Pulses: Normal pulses. Heart sounds: Normal heart sounds. Pulmonary: Effort: Pulmonary effort is normal. No respiratory distress. Breath sounds: No stridor. No wheezing, rhonchi or rales. Abdominal: General: Abdomen is flat. Tenderness: There is no abdominal tenderness. There is no guarding or rebound. Musculoskeletal: Cervical back: Normal range of motion and neck supple. Right lower leg: No edema. Left lower leg: No edema. Comments: Swelling in the LLE extending from mid thigh to below knee. Compartments soft. NV intact. Skin: Capillary Refill: Capillary refill takes less than 2 seconds. Neurological: Mental Status: He is alert. Diagnostic Testing ED Labs Ordered and Reviewed CBC - Abnormal; Notable for the following components: Result Value Ref Range WBC 16.74 (*) 3.70 - 11.00 k/uL RBC 3.82 (*) 4.20 - 6.00 m/uL Hemoglobin 12.0 (*) 13.0 - 17.0 g/dL Hematocrit 35.8 (*) 39.0 - 51.0 % All other components within normal limits BASIC METABOLIC PNL - Abnormal; Notable for the following components: Glucose 167 (*) 74 - 99 mg/dL Chloride 107 (*) 97 - 105 mmol/L All other components within normal limits TYPE + SCREEN Procedures ED Course / Clinical Impression Clinical Impressions as of 12/17/221940 Leg pain MDM / Disposition / Plan I (more content not included)... Normal [facility] ED PROV NOTE HNO ID: [id number] Author: Opal Deleon MD Service: Emergency Medicine Author Type: Physician Type: ED Provider Notes Filed: 12/17/2022 5:24 PM Note Text: The patient arrived by EMS as a transfer from [facility]. The patient was doing yard work at his home. He stepped over a wooden fence and continued to do yard work. He denies any falls or direct impact of his leg to the fence. As he was continuing with his yard work, he noticed that his left eye was becoming more swollen and then became painful. He presented to the emergency department with a massively swollen left thigh and a systolic blood pressure in the 70s. They were able to normalize his blood pressure with IV fluid resuscitation only. They were able to perform a CT of his left lower extremity with IV contrast. It revealed a large intramuscular hematoma with active bleeding which the radiologist felt was arising from the profundus femorous artery. The patient is on aspirin. 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 His hemoglobin was stable there, and they did not initiate any blood transfusions. They did not have vascular surgery support; therefore, they transferred him here. He had stable vital signs in route. He presents with a blood pressure 154/98 with a pulse rate of 62 and a respiratory rate of 22. He is afebrile with a room air pulse ox of 100%. His skin is pink, warm, dry. The foot on the left was initially dusky until I loosen the Marie wrap that they had placed around the swollen area of his thigh. The color is significantly improved and I believe the cyanosis was due to the tightness of the Marie wrap. His abdomen is soft and nontender. He does have swelling that starts at the mid thigh and extends just below the knee. He has palpable dorsal pedal and posterior tibial pulses. We will obtain a vascular consult as we are currently uploading the images. We will also reassess a CBC and order a type and screen. He is currently in guarded, but stable, condition. OPAL DELEON 12/17/22 1724 Normal [facility] HISTORY PHYSICALon HISTORY PHYSICAL HNO ID: [id number] Author: Joi Cabral DO Service: General Surgery Author Type: Resident Type: HANDP Filed: 12/17/2022 9:52 PM Note Text: Attestation signed by Sandra Lopez MD at 12/18/2022 11:20 AM Attending Note I personally saw and examined the patient. I reviewed the resident's note. I agree with the resident's assessment and plan unless otherwise noted. Signature: Sandra Lopez MD Date: 12/18/2022 Time: 11:20 AM HISTORY AND PHYSICAL EXAM: Vascular Surgery SERVICE SERVICE DATE: 12/17/2022 SERVICE TIME: 7:43 PM Subjective CHIEF COMPLAINT: left knee swelling HPI: 77 year old male PMH cad, htn, hypercholesterolemia, CABG, mary, inguinal hernia repair presented from an outside ED with swelling in his leg after he was weed eating and jumped over a vinyl fence that he uses to keep his donkeys in. His right leg got caught and he fell over on the ground. He states nothing hurts him but his left knee started to swell. He has motor and sensation although he does say it is more difficult to bend his left knee. He has some minimal blisters on the inside of his leg. He does have some baseline neuropathy as well. He chews tobacco daily. Minimal etoh. No recreational drugs. at bedside. He had a CT at the outside facility which showed hematoma with some concern for active extrav and was transferred to [facility] for tertiary care. ADDENDUM: Called again on floor for concern with ability to doppler pulses- pulses remain dopplerable with motor and sensation intact. Some enlargement of medial thigh bullae. Attending updated. FUNCTIONAL STATUS: Independent PAST MEDICAL HISTORY Diagnosis Date Coronary atherosclerosis of unspecified type of vessel, little river or graft Coronary artery disease Diverticulosis of colon (without mention of hemorrhage) Diverticulosis Pure hypercholesterolemia Unspecified essential hypertension PAST SURGICAL HISTORY Procedure Laterality Date CABG, ARTERY-VEIN, TWO 1995 CABG, two grafts LAPAROSCOPIC CHOLEYCYSTECTOMY Cholecystectomy, lap REPAIR ING HERNIA,5+Y/O,REDUCIBL Rt ing hernia FAMILY HISTORY Problem Relation Age of Onset Coronary Artery Disease Brother Social History Tobacco Use Smoking status: Former Packs/day: 1.00 Years: 5.00 Total pack years: 5.00 Types: Cigarettes Quit date: 06/08/1967 Years since quittin.5 Smokeless tobacco: Current Types: Chew Tobacco comments: Smoked while in [place]; Chews for anxiety relief. Substance Use Topics Alcohol use: No Drug use: No (Not in a hospital admission) ALLERGIES Allergen Reactions Iodine injectible COMPLETE REVIEW OF SYSTEMS: GENERAL: No weight loss, malaise or fevers. HEENT: Negative for frequent or significant headaches, No changes in hearing or vision, no nose bleeds or other nasal problems. NECK: Negative for lumps, goiter, pain and significant neck swelling. RESPIRATORY: Negative for cough, hemoptysis, wheezing, COPD, dyspnea or shortness of breath. CARDIOVASCULAR: Negative for chest pain, leg swelling, hypertension, CHF or palpitations. GI: No nausea, vomiting, or diarrhea. MUSCULOSKELETAL: swelling on the left leg, dp and pt and popliteal and femoral are dopplerable SKIN: ecchymosis and swelling of the left knee and thigh with tense bullae in the medial aspect, compartments of the thigh are soft. PSYCH: Negative for sleep disturbance, mood disorder and recent psychosocial stressors. NEURO: No history of headaches, syncope, paralysis, seizures or tremors. Objective BP 136/98 Pulse 60 Temp (Src) 97.5 (Oral) Resp 16 Ht 5' 10 (1.78m) Wt 179 lb (81.2kg) SpO2 99% BMI 25.68 kg/(m2). O2 Therapy: Room Air PHYSICAL EXAM: GENERAL: Alert. No distress. Resting comfortably. NEURO: AANDOx3. No focal neurologic deficits. Sensation grossly intact. HEENT: Normocephalic. Atraumatic. EOMI. LUNGS: Unlabored breathing. Equal excursion bilaterally. CARDIAC: Regular rate. Good perfusion throughout. ABDOMEN: Soft, nt-tender, non-distended. No rebound or guarding. EXTREMITIES: ecchymosis and swelling of the left knee and thigh with tense bullae in the medial aspect, compartments of the thigh are soft. Dp and pt and femoral and popliteal are dopplerable SKIN: ecchymosis on medial thigh with tense bullae associated DATA: Labs: Recent Labs 12/17/22 1802 NA 140 K 4.4 CHLOR 107* CO2 23 BUN 20 CREAT 0.94 GLUC 167* ANION 10 CA 8.9 WBC 16.74* HB 12.0* HCT 35.8* PLT 242 No orders to display Diagnostic tests reviewed for today's visit: Most recent labs and imaging results. No orders to display Assessment/Plan There are no active hospital problems to display for this patient. 77 year old male with a PMH of PMH cad, htn, hyperchole (more content not included)... Normal [facility] Hematocrit Auto (Bld) [Volum e fraction]Ordered By: Kathryn Gloria on 12-17-2022 Hematocrit (Bld) [Volume fraction] 38.8 % 40-54 [facility] INR in Blood by Coagulation assayOrdered By: Kathryn Gloria on 12-17-2022 INR Coag (Bld) [Relative time] 1.1 {INR} [facility] Laboratory - Chemistry and C hemistry - challengeOrdered By: Kathryn Gloria on 12-17-2022 ALP [Catalytic activity/Vol] 63 U/L 45-117 [facility] ALT [Catalytic activity/Vol] 24 U/L 16-61 [facility] CO2 [Moles/Vol] 26.0 mmol/L 21.0-32.0 [facility] Globulin (S) [Mass/Vol] 2.8 g/dL 2.2-4.2 [facility] Urea nitrogen/Creatinine [Mass ratio] 19.1 mg/mg 10-20 [facility] Laboratory - CoagulationOrde red By: Kathryn Gloria on 12-17-2022 aPTT Coag (Bld) [Time] 28.0 s 24.1-36.2 [facility] PT Coag (PPP) [Time] 13.7 s 11.7-14.9 [facility] Laboratory - Hematology and Cell countsOrdered By: Kathryn Gloria on 12-17-2022 Erythrocyte distribution width (RBC) [Entitic vol] 41.7 fL 35.1-43.9 [facility] Erythrocyte distribution width (RBC) [Ratio] 12.2 % 11.6-14.6 [facility] Immature granulocytes/100 WBC (Bld) 0.600 % 0.0-0.9 [facility] Comment on above: IG% - Immature Granu locytes (promyelocytes, myelocytes and metamyelocytes) > 1% indicates that a LEFT SHIFT is Present. MCH (RBC) [Entitic mass] 30.8 pg 27.0-32.0 [facility] Nucleated RBC/100 WBC (Bld) [Ratio] 0 % 0-5 [facility] MCHC Auto (RBC) [Mass/Vol]Or dered By: Kathryn Gloria on 12-17-2022 MCHC (RBC) [Mass/Vol] 32.5 g/dL 32-36 [facility] No Panel InformationOrdered By: Kathryn Gloria on 12-17-2022 Estimated Creatinine Clearance Calc 55.54 ml/min [facility] Estimated GFR (MDRD) Amer 79 mL/min >60 [facility] Comment on above: GFR Calc Estimated GFR (MDRD) Non-Af Amer 66 mL/min >60 [facility] Comment on above: Non- GFR Calc Platelets bldOrdered By: Naina Gloria on 12-17-2022 Platelets (Bld) [#/Vol] 271 10*3/uL 150-450 [facility] Serum or plasma albumin cherise urement (mass/volume)Ordered By: Kathryn Gloria on 12-17-2022 Albumin [Mass/Vol] 3.4 g/dL 3.2-5.0 [facility] Serum or plasma albumin/glob ulin mass ratioOrdered By: Kathryn Gloria on 12-17-2022 Albumin/Globulin [Mass ratio] 1.2 {ratio} 0.9-2.4 [facility] Serum or plasma calcium cherise urement (mass/volume)Ordered By: Kathryn Gloria on 12-17-2022 Calcium [Mass/Vol] 8.8 mg/dL 8.5-10.1 [facility] Serum or plasma creatinine m easurement (mass/volume)Ordered By: Kathryn Gloria on 12-17-2022 Creatinine [Mass/Vol] 1.15 mg/dL 0.70-1.30 [facility] Comment on above: The validity of the calculated GFR & GFRAA in patients over 70 years has not been determined. Clinical correlation is essential. Serum or plasma urea nitroge n measurement (mass/volume)Ordered By: Kathryn Gloria on 12-17-2022 Urea nitrogen [Mass/Vol] 22 mg/dL 7-18 [facility] TYPE + SCREENon 12-17-2022 ABO O Normal [facility] Comment on above: Order Comment: Speci men Type: BLOOD SPECIMENOrdering Facility: [facility] Address: [address] [place] [address] Performed By: #### T SCR ####[facility] BLOOD BANKCLIA [id number] [address] HISTORICAL AB SCR STATUS Negative [facility] Comment on above: Order Comment: Speci men Type: BLOOD SPECIMENOrdering Facility: [facility] Address: [address] [place] [address] Performed By: #### T SCR ####[facility] BLOOD BANKCLIA [id number] [address] OF [facility] Rh Nom (Bld) Positive Normal [facility] Comment on above: Order Comment: Speci men Type: BLOOD SPECIMENOrdering Facility: [facility] Address: [address] [place] [address] Performed By: #### T SCR ####[facility] BLOOD BANKCLIA [id number] [address] OF [place] TYPE AND SCREEN EXPIRATION 12/20/2022 23:59 Normal [facility] Comment on above: Order Comment: Speci men Type: BLOOD SPECIMENOrdering Facility: [facility] Address: [address] [place] [address] Performed By: #### T SCR ####[facility] BLOOD BANKCLIA [id number] [place] [address] [facility] [place] Thin prep Papanicolaou smear with manual screeningOrdered By: Kathryn Gloria on 12-17-2022 Thin prep Papanicolaou smear with manual screening 16 U/L 15-37 [facility] Thin prep Papanicolaou smear with manual screening 7 5-15 [facility] LABORATORYOrdered By: SYSTEM SYSTEM on 10-19-2022 Albumin BCP dye [Mass/Vol] 3.8 G/dL Invalid Interpretation Code 3.4 - 4.8 G/dL AO ADM SS Albumin/Globulin [Mass ratio] 1.5 {ratio} Invalid Interpretation Code 1.1 - 2.5 ratio AO ADM SS ALP [Catalytic activity/Vol] 104 U/L Invalid Interpretation Code 40 - 135 U/L AO ADM SS ALT With P-5'-P [Catalytic activity/Vol] 45 U/L Invalid Interpretation Code 16 - 63 U/L AO ADM SS AST With P-5'-P [Catalytic activity/Vol] 15 U/L Invalid Interpretation Code 10 - 40 U/L AO ADM SS Bilirubin [Mass/Vol] 1.0 mg/dL Invalid Interpretation Code 0.2 - 1.0 mg/dL AO ADM SS Calcium [Mass/Vol] 8.9 mg/dL Invalid Interpretation Code 8.4 - 10.2 mg/dL AO ADM SS Chloride [Moles/Vol] 104 mmol/L Invalid Interpretation Code 98 - 107 mmol/L AO ADM SS CO2 [Moles/Vol] 29 mmol/L Invalid Interpretation Code 23 - 31 mmol/L AO ADM SS Creatinine [Mass/Vol] 0.96 mg/dL Invalid Interpretation Code 0.70 - 1.30 mg/dL AO ADM SS Electrolyte Balance 8.0 mEq/L Invalid Interpretation Code 4.0 - 15.0 mEq/L AO ADM SS GFR/1.73 sq M.predicted among blacks MDRD (S/P/Bld) [Vol rate/Area] 92 ml/min/1.73sqm Invalid Interpretation Code AO Chemistry S GFR/1.73 sq M.predicted among non-blacks MDRD (S/P/Bld) [Vol rate/Area] 76 ml/min/1.73sqm Invalid Interpretation Code AO Chemistry S Globulin 2.6 G/dL Invalid Interpretation Code AO ADM SS Glucose [Mass/Vol] 99 mg/dL Invalid Interpretation Code 83 - 110 mg/dL AO ADM SS Potassium [Moles/Vol] 4.7 mmol/L Invalid Interpretation Code 3.5 - 5.1 mmol/L AO ADM SS Protein [Mass/Vol] 6.4 G/dL Invalid Interpretation Code 6.4 - 8.2 G/dL AO ADM SS Sodium [Moles/Vol] 141 mmol/L Invalid Interpretation Code 136 - 145 mmol/L AO ADM SS Urea nitrogen [Mass/Vol] 20 mg/dL Invalid Interpretation Code 7 - 18 mg/dL AO ADM SS Urea nitrogen/Creatinine [Mass ratio] 21 ratio Invalid Interpretation Code 7 - 27 ratio AO ADM SS Uric Acid Lvl 3.7 mg/dL Invalid Interpretation Code 3.5 - 7.2 mg/dL AO ADM SS LABORATORYOrdered By: Ignacio Mckeon on 10-19-2022 Basophil, Absolute 0.1 103/mcL Invalid Interpretation Code 0.0 - 0.2 10^3/mcL AO Workflow SS Basophils/100 WBC (Bld) 0.9 % Invalid Interpretation Code 0.0 - 2.5 % AO Workflow SS Eosinophil, Absolute 0.2 103/mcL Invalid Interpretation Code 0.0 - 0.4 10^3/mcL AO Workflow SS Eosinophils/100 WBC (Bld) 3.1 % Invalid Interpretation Code 0.0 - 7.0 % AO Workflow SS Erythrocyte distribution width (RBC) [Ratio] 13.6 % Invalid Interpretation Code 11.5 - 14.5 % AO Workflow SS Hematocrit (Bld) [Volume fraction] 41.3 % Invalid Interpretation Code 42.0 - 52.0 % AO Workflow SS Hemoglobin (Bld) [Mass/Vol] 13.9 G/dL Invalid Interpretation Code 14.0 - 18.0 G/dL AO Workflow SS Lymphocyte, Absolute 2.0 103/mcL Invalid Interpretation Code 0.8 - 3.9 10^3/mcL AO Workflow SS Lymphocytes/100 WBC (Bld) 26.8 % Invalid Interpretation Code 10.0 - 50.0 % AO Workflow SS MCH (RBC) [Entitic mass] 30.9 pg Invalid Interpretation Code 27.0 - 31.2 pg AO Workflow SS MCHC 33.7 G/dL Invalid Interpretation Code 31.8 - 35.4 G/dL AO Workflow SS MCV (RBC) [Entitic vol] 91.7 fL Invalid Interpretation Code 80.0 - 94.0 fL AO Workflow SS Monocyte, Absolute 0.8 103/mcL Invalid Interpretation Code 0.2 - 1.0 10^3/mcL AO Workflow SS Monocytes/100 WBC (Bld) 11.4 % Invalid Interpretation Code 1.7 - 13.0 % AO Workflow SS Neutrophil, Absolute 4.3 103/mcL Invalid Interpretation Code 2.9 - 6.2 10^3/mcL AO Workflow SS Neutrophils/100 WBC (Bld) 57.8 % Invalid Interpretation Code 37.0 - 80.0 % AO Workflow SS Platelet mean volume (Bld) [Entitic vol] 7.4 fL Invalid Interpretation Code 7.4 - 10.4 fL AO Workflow SS Platelets (Bld) [#/Vol] 258 103/mcL Invalid Interpretation Code 130 - 400 10^3/mcL AO Workflow SS RBC (Bld) [#/Vol] 4.51 106/mcL Invalid Interpretation Code 4.04 - 6.13 10^6/mcL AO Workflow SS WBC (Bld) [#/Vol] 7.4 103/mcL Invalid Interpretation Code 4.6 - 10.8 10^3/mcL AO Workflow SS LABORATORYOrdered By: Kenisha French on 10-19-2022 Cholesterol [Mass/Vol] 123 mg/dL Invalid Interpretation Code 0 - 200 mg/dL AO ADM SS Cholesterol in HDL [Mass/Vol] 44 mg/dL Invalid Interpretation Code 40 - 60 mg/dL AO ADM SS Cholesterol in LDL [Mass/Vol] 70 mg/dL Invalid Interpretation Code 0 - 130 mg/dL AO ADM SS Triglyceride [Mass/Vol] 47 mg/dL Invalid Interpretation Code 0 - 150 mg/dL AO ADM SS LABORATORYOrdered By: Lita Chin on 03-17-2022 Basophil, Absolute 0.1 103/mcL Invalid Interpretation Code 0.0 - 0.2 10^3/mcL AO Workflow SS Basophils/100 WBC (Bld) 0.9 % Invalid Interpretation Code 0.0 - 2.5 % AO Workflow SS Eosinophil, Absolute 0.2 103/mcL Invalid Interpretation Code 0.0 - 0.4 10^3/mcL AO Workflow SS Eosinophils/100 WBC (Bld) 2.8 % Invalid Interpretation Code 0.0 - 7.0 % AO Workflow SS Erythrocyte distribution width (RBC) [Ratio] 13.5 % Invalid Interpretation Code 11.5 - 14.5 % AO Workflow SS ESR 15 minute reading (Bld) [Velocity] 5 mm/hr Invalid Interpretation Code 0 - 20 mm/hr AO Man Heme SS Hematocrit (Bld) [Volume fraction] 41.8 % Invalid Interpretation Code 42.0 - 52.0 % AO Workflow SS Hemoglobin (Bld) [Mass/Vol] 14.2 G/dL Invalid Interpretation Code 14.0 - 18.0 G/dL AO Workflow SS Lymphocyte, Absolute 1.9 103/mcL Invalid Interpretation Code 0.8 - 3.9 10^3/mcL AO Workflow SS Lymphocytes/100 WBC (Bld) 23.2 % Invalid Interpretation Code 10.0 - 50.0 % AO Workflow SS MCH (RBC) [Entitic mass] 31.3 pg Invalid Interpretation Code 27.0 - 31.2 pg AO Workflow SS MCHC 33.9 G/dL Invalid Interpretation Code 31.8 - 35.4 G/dL AO Workflow SS MCV (RBC) [Entitic vol] 92.2 fL Invalid Interpretation Code 80.0 - 94.0 fL AO Workflow SS Monocyte, Absolute 0.7 103/mcL Invalid Interpretation Code 0.2 - 1.0 10^3/mcL AO Workflow SS Monocytes/100 WBC (Bld) 9.2 % Invalid Interpretation Code 1.7 - 13.0 % AO Workflow SS Neutrophil, Absolute 5.2 103/mcL Invalid Interpretation Code 2.9 - 6.2 10^3/mcL AO Workflow SS Neutrophils/100 WBC (Bld) 63.9 % Invalid Interpretation Code 37.0 - 80.0 % AO Workflow SS Platelet mean volume (Bld) [Entitic vol] 7.3 fL Invalid Interpretation Code 7.4 - 10.4 fL AO Workflow SS Platelets (Bld) [#/Vol] 265 103/mcL Invalid Interpretation Code 130 - 400 10^3/mcL AO Workflow SS RBC (Bld) [#/Vol] 4.54 106/mcL Invalid Interpretation Code 4.04 - 6.13 10^6/mcL AO Workflow SS WBC (Bld) [#/Vol] 8.1 103/mcL Invalid Interpretation Code 4.6 - 10.8 10^3/mcL AO Workflow SS LABORATORYOrdered By: Lachelle Rod on 03-17-2022 CRP [Mass/Vol] mg/dL Invalid Interpretation Code 0.0 - 0.9 mg/dL AO Chemistry S LABORATORYOrdered By: Lita Chin on 03-11-2022 Albumin BCP dye [Mass/Vol] 3.9 G/dL Invalid Interpretation Code 3.4 - 4.8 G/dL AO ADM SS Albumin/Globulin [Mass ratio] 1.4 {ratio} Invalid Interpretation Code 1.1 - 2.5 ratio AO ADM SS ALP [Catalytic activity/Vol] 88 U/L Invalid Interpretation Code 40 - 135 U/L AO ADM SS ALT With P-5'-P [Catalytic activity/Vol] 20 U/L Invalid Interpretation Code 16 - 63 U/L AO ADM SS AST With P-5'-P [Catalytic activity/Vol] 15 U/L Invalid Interpretation Code 10 - 40 U/L AO ADM SS Basophil, Absolute 0.1 103/mcL Invalid Interpretation Code 0.0 - 0.2 10^3/mcL AO Workflow SS Basophils/100 WBC (Bld) 0.8 % Invalid Interpretation Code 0.0 - 2.5 % AO Workflow SS Bilirubin [Mass/Vol] 1.1 mg/dL Invalid Interpretation Code 0.2 - 1.0 mg/dL AO ADM SS Calcium [Mass/Vol] 9.3 mg/dL Invalid Interpretation Code 8.4 - 10.2 mg/dL AO ADM SS Chloride [Moles/Vol] 104 mmol/L Invalid Interpretation Code 98 - 107 mmol/L AO ADM SS Cholesterol [Mass/Vol] 144 mg/dL Invalid Interpretation Code 0 - 200 mg/dL AO ADM SS Cholesterol in HDL [Mass/Vol] 38 mg/dL Invalid Interpretation Code 40 - 60 mg/dL AO ADM SS Cholesterol in LDL [Mass/Vol] 84 mg/dL Invalid Interpretation Code 0 - 130 mg/dL AO ADM SS CO2 [Moles/Vol] 31 mmol/L Invalid Interpretation Code 23 - 31 mmol/L AO ADM SS Creatinine [Mass/Vol] 1.05 mg/dL Invalid Interpretation Code 0.70 - 1.30 mg/dL AO ADM SS Electrolyte Balance 5.0 mEq/L Invalid Interpretation Code 4.0 - 15.0 mEq/L AO ADM SS Eosinophil, Absolute 0.3 103/mcL Invalid Interpretation Code 0.0 - 0.4 10^3/mcL AO Workflow SS Eosinophils/100 WBC (Bld) 4.4 % Invalid Interpretation Code 0.0 - 7.0 % AO Workflow SS Erythrocyte distribution width (RBC) [Ratio] 13.4 % Invalid Interpretation Code 11.5 - 14.5 % AO Workflow SS Globulin 2.7 G/dL Invalid Interpretation Code AO ADM SS Glucose [Mass/Vol] 97 mg/dL Invalid Interpretation Code 83 - 110 mg/dL AO ADM SS HbA1c (Bld) [Mass fraction] 5.4 % Invalid Interpretation Code 4.3 - 6.4 % AO ADM SS Hematocrit (Bld) [Volume fraction] 43.9 % Invalid Interpretation Code 42.0 - 52.0 % AO Workflow SS Hemoglobin (Bld) [Mass/Vol] 14.9 G/dL Invalid Interpretation Code 14.0 - 18.0 G/dL AO Workflow SS Lymphocyte, Absolute 2.2 103/mcL Invalid Interpretation Code 0.8 - 3.9 10^3/mcL AO Workflow SS Lymphocytes/100 WBC (Bld) 27.6 % Invalid Interpretation Code 10.0 - 50.0 % AO Workflow SS MCH (RBC) [Entitic mass] 30.8 pg Invalid Interpretation Code 27.0 - 31.2 pg AO Workflow SS MCHC 33.9 G/dL Invalid Interpretation Code 31.8 - 35.4 G/dL AO Workflow SS MCV (RBC) [Entitic vol] 91.0 fL Invalid Interpretation Code 80.0 - 94.0 fL AO Workflow SS Monocyte, Absolute 0.8 103/mcL Invalid Interpretation Code 0.2 - 1.0 10^3/mcL AO Workflow SS Monocytes/100 WBC (Bld) 9.5 % Invalid Interpretation Code 1.7 - 13.0 % AO Workflow SS Neutrophil, Absolute 4.6 103/mcL Invalid Interpretation Code 2.9 - 6.2 10^3/mcL AO Workflow SS Neutrophils/100 WBC (Bld) 57.7 % Invalid Interpretation Code 37.0 - 80.0 % AO Workflow SS Platelet mean volume (Bld) [Entitic vol] 7.1 fL Invalid Interpretation Code 7.4 - 10.4 fL AO Workflow SS Platelets (Bld) [#/Vol] 243 103/mcL Invalid Interpretation Code 130 - 400 10^3/mcL AO Workflow SS Potassium [Moles/Vol] 5.1 mmol/L Invalid Interpretation Code 3.5 - 5.1 mmol/L AO ADM SS Protein [Mass/Vol] 6.6 G/dL Invalid Interpretation Code 6.4 - 8.2 G/dL AO ADM SS RBC (Bld) [#/Vol] 4.82 106/mcL Invalid Interpretation Code 4.04 - 6.13 10^6/mcL AO Workflow SS Sodium [Moles/Vol] 140 mmol/L Invalid Interpretation Code 136 - 145 mmol/L AO ADM SS Triglyceride [Mass/Vol] 111 mg/dL Invalid Interpretation Code 0 - 150 mg/dL AO ADM SS Urea nitrogen [Mass/Vol] 21 mg/dL Invalid Interpretation Code 7 - 18 mg/dL AO ADM SS Urea nitrogen/Creatinine [Mass ratio] 20 ratio Invalid Interpretation Code 7 - 27 ratio AO ADM SS Uric Acid Lvl 4.3 mg/dL Invalid Interpretation Code 3.5 - 7.2 mg/dL AO ADM SS WBC (Bld) [#/Vol] 8.0 103/mcL Invalid Interpretation Code 4.6 - 10.8 10^3/mcL AO Workflow SS LABORATORYOrdered By: SYSTEM SYSTEM on 03-11-2022 GFR 83 ml/min/1.73sqm Invalid Interpretation Code AO Chemistry S GFR Non- 69 ml/min/1.73sqm Invalid Interpretation Code AO Chemistry S LABORATORYOrdered By: Priscila Gutierrez on 03-11-2022 HCV Ab IA Ql Non-Reactive (03/11/22 10:21 AM) Invalid Interpretation Code Non-Reactive AH ADM SS HCV Ab IA Ql Nonreactive: Samples with a value < 0.80 are considered nonreactive (negative) for antibodies to HCV.A negative test result does not exclude the possibility of exposure to or infection with HCV. HCV antibodies may be undetectable in some stages of the infection and in some clinical conditions. Invalid Interpretation Code AH Chemistry S Basophil percentageon 2021 Bilirubin [Mass/Vol] 1.00 mg/dL 0.20-1.00 [facility]: Comment on above: For patients on eltr ombopag therapy, use of Dimension [place] TBIL is not recommended. Cholesterol [Mass/Vol] 92 mg/dL <200 [facility] Work Phone: Comment on above: <200 mg/dL Desirable 200-240 mg/dL Borderline >240 mg/dL High Risk Protein [Mass/Vol] 6.4 g/dL 6.4-8.2 [facility] Work Phone: Triglyceride [Mass/Vol] 82 mg/dL <199 [facility] Work Phone: Comment on above: The drugs N-Acetylcy steine and Metamizole may falsely depress this assay.Serum Triglycerides Reference Interval Normal <150 mg/dL Borderline high 150 - 199 mg/dL High 200 - 499 mg/dL Very High > or = 500 mg/dL Direct bilirubinon Bilirubin.direct [Mass/Vol] 0.23 mg/dL 0.00-0.30 [facility] Work Phone: Laboratory - Chemistry and C hemistry - challengeon 11-28-2021 ALP [Catalytic activity/Vol] 75 U/L 45-117 [facility] Work Phone: ALT [Catalytic activity/Vol] 21 U/L 16-61 [facility] Work Phone: Globulin (S) [Mass/Vol] 3.0 g/dL 2.2-4.2 [facility] Work Phone: Serum or plasma albumin cherise urement (mass/volume)on 11-28-2021 Albumin [Mass/Vol] 3.4 g/dL 3.2-5.0 [facility] Work Phone: Serum or plasma cholesterol in HDL measurement (mass/volume)on 11-28-2021 Cholesterol in HDL [Mass/Vol] 33 mg/dL >40 [facility] Work Phone: Comment on above: The drugs N-Acetylcy steine and Metamizole may falsely depress this assay. Reference Range HDL <40 mg/dL Low HDL Cholesterol HDL >or= 60 mg/dL High HDL Cholesterol Serum or plasma cholesterol in VLDL measurement (mass/volume)on 11-28-2021 Cholesterol in VLDL [Mass/Vol] 16 mg/dL 5-40 [facility] Work Phone: Serum or plasma low density lipoprotein (LDL) cholesterol measurement (mass/volume)on 11-28-2021 Cholesterol in LDL [Mass/Vol] 43 mg/dL 0-130 [facility] Work Phone: Thin prep Papanicolaou smear with manual screeningon 11-28-2021 Thin prep Papanicolaou smear with manual screening 14 U/L 15-37 [facility] Work Phone: No Panel Informationon 11-24 Culture Wound Aerobe Light normal skin millie present. Sensitivity testing not indicated. [facility] GS 1+ White Blood Cells 1+ Epithelial cells 1+ Gram Positive Rods Rare Gram Positive Cocci [facility] LABORATORYOrdered By: Tata Shaffer on 11-19-2021 Basophil, Absolute 0.1 103/mcL Invalid Interpretation Code 0.0 - 0.2 10^3/mcL AO Workflow SS Basophils/100 WBC (Bld) 0.7 % Invalid Interpretation Code 0.0 - 2.5 % AO Workflow SS Eosinophil, Absolute 0.1 103/mcL Invalid Interpretation Code 0.0 - 0.4 10^3/mcL AO Workflow SS Eosinophils/100 WBC (Bld) 1.8 % Invalid Interpretation Code 0.0 - 7.0 % AO Workflow SS Erythrocyte distribution width (RBC) [Ratio] 13.7 % Invalid Interpretation Code 11.5 - 14.5 % AO Workflow SS Hematocrit (Bld) [Volume fraction] 42.0 % Invalid Interpretation Code 42.0 - 52.0 % AO Workflow SS Hemoglobin (Bld) [Mass/Vol] 14.4 G/dL Invalid Interpretation Code 14.0 - 18.0 G/dL AO Workflow SS Lymphocyte, Absolute 2.4 103/mcL Invalid Interpretation Code 0.8 - 3.9 10^3/mcL AO Workflow SS Lymphocytes/100 WBC (Bld) 29.6 % Invalid Interpretation Code 10.0 - 50.0 % AO Workflow SS MCH (RBC) [Entitic mass] 31.6 pg Invalid Interpretation Code 27.0 - 31.2 pg AO Workflow SS MCHC 34.2 G/dL Invalid Interpretation Code 31.8 - 35.4 G/dL AO Workflow SS MCV (RBC) [Entitic vol] 92.2 fL Invalid Interpretation Code 80.0 - 94.0 fL AO Workflow SS Monocyte, Absolute 0.8 103/mcL Invalid Interpretation Code 0.2 - 1.0 10^3/mcL AO Workflow SS Monocytes/100 WBC (Bld) 10.0 % Invalid Interpretation Code 1.7 - 13.0 % AO Workflow SS Neutrophil, Absolute 4.7 103/mcL Invalid Interpretation Code 2.9 - 6.2 10^3/mcL AO Workflow SS Neutrophils/100 WBC (Bld) 57.9 % Invalid Interpretation Code 37.0 - 80.0 % AO Workflow SS Platelet mean volume (Bld) [Entitic vol] 7.2 fL Invalid Interpretation Code 7.4 - 10.4 fL AO Workflow SS Platelets (Bld) [#/Vol] 260 103/mcL Invalid Interpretation Code 130 - 400 10^3/mcL AO Workflow SS RBC (Bld) [#/Vol] 4.56 106/mcL Invalid Interpretation Code 4.04 - 6.13 10^6/mcL AO Workflow SS WBC 8.1 103/mcL Invalid Interpretation Code 4.6 - 10.8 10^3/mcL AO Workflow SS LABORATORYOrdered By: Ignacio Mckeon on 11-19-2021 Calcium [Mass/Vol] 9.2 mg/dL Invalid Interpretation Code 8.4 - 10.2 mg/dL AO ADM SS Chloride [Moles/Vol] 104 mmol/L Invalid Interpretation Code 98 - 107 mmol/L AO ADM SS CO2 [Moles/Vol] 30 mmol/L Invalid Interpretation Code 23 - 31 mmol/L AO ADM SS Creatinine [Mass/Vol] 1.06 mg/dL Invalid Interpretation Code 0.70 - 1.30 mg/dL AO ADM SS Electrolyte Balance 5.0 mEq/L Invalid Interpretation Code 4.0 - 15.0 mEq/L AO ADM SS Glucose [Mass/Vol] 101 mg/dL Invalid Interpretation Code 83 - 110 mg/dL AO ADM SS Potassium [Moles/Vol] 4.9 mmol/L Invalid Interpretation Code 3.5 - 5.1 mmol/L AO ADM SS Sodium [Moles/Vol] 139 mmol/L Invalid Interpretation Code 136 - 145 mmol/L AO ADM SS Urea nitrogen [Mass/Vol] 21 mg/dL Invalid Interpretation Code 7 - 18 mg/dL AO ADM SS Urea nitrogen/Creatinine [Mass ratio] 20 ratio Invalid Interpretation Code 7 - 27 ratio AO ADM SS Uric Acid Lvl 3.5 mg/dL Invalid Interpretation Code 3.5 - 7.2 mg/dL AO ADM SS LABORATORYOrdered By: SYSTEM SYSTEM on 11-19-2021 GFR 82 ml/min/1.73sqm Invalid Interpretation Code AO Chemistry S GFR Non- 68 ml/min/1.73sqm Invalid Interpretation Code AO Chemistry S Monocyte distribution width Auto (Bld) [Entitic vol] Not Performed 1 *NA* (11/19/21 9:07 AM) Invalid Interpretation Code 0.00 - 20.00 AO Hematology S Comment on above: Result Comment: MDW testing performed only on adult ER patients between the ages of 18-89 years. LABORATORYOrdered By: Tata Shaffer on 07-13-2021 Calcium [Mass/Vol] 8.8 mg/dL Invalid Interpretation Code 8.4 - 10.2 mg/dL AO ADM SS Chloride [Moles/Vol] 108 mmol/L Invalid Interpretation Code 98 - 107 mmol/L AO ADM SS CO2 [Moles/Vol] 28 mmol/L Invalid Interpretation Code 23 - 31 mmol/L AO ADM SS Creatinine [Mass/Vol] 0.94 mg/dL Invalid Interpretation Code 0.70 - 1.30 mg/dL AO ADM SS Electrolyte Balance 7.0 mEq/L Invalid Interpretation Code 4.0 - 15.0 mEq/L AO ADM SS Glucose [Mass/Vol] 111 mg/dL Invalid Interpretation Code 83 - 110 mg/dL AO ADM SS Potassium [Moles/Vol] 5.2 mmol/L Invalid Interpretation Code 3.5 - 5.1 mmol/L AO ADM SS Sodium [Moles/Vol] 143 mmol/L Invalid Interpretation Code 136 - 145 mmol/L AO ADM SS Urea nitrogen [Mass/Vol] 19 mg/dL Invalid Interpretation Code 7 - 18 mg/dL AO ADM SS Urea nitrogen/Creatinine [Mass ratio] 20 ratio Invalid Interpretation Code 7 - 27 ratio AO ADM SS LABORATORYOrdered By: SYSTEM SYSTEM on 07-13-2021 GFR 95 ml/min/1.73sqm Invalid Interpretation Code AO Chemistry S GFR Non- 78 ml/min/1.73sqm Invalid Interpretation Code AO Chemistry S LABORATORYOrdered By: Ignacio Mckeon on 07-08-2021 Albumin BCP dye [Mass/Vol] 4.2 G/dL Invalid Interpretation Code 3.4 - 4.8 G/dL AO ADM SS Albumin/Globulin [Mass ratio] 1.5 {ratio} Invalid Interpretation Code 1.1 - 2.5 ratio AO ADM SS ALP [Catalytic activity/Vol] 101 U/L Invalid Interpretation Code 40 - 135 U/L AO ADM SS ALT With P-5'-P [Catalytic activity/Vol] 23 U/L Invalid Interpretation Code 16 - 63 U/L AO ADM SS AST With P-5'-P [Catalytic activity/Vol] 16 U/L Invalid Interpretation Code 10 - 40 U/L AO ADM SS Bilirubin [Mass/Vol] 1.7 mg/dL Invalid Interpretation Code 0.2 - 1.0 mg/dL AO ADM SS Calcium [Mass/Vol] 9.2 mg/dL Invalid Interpretation Code 8.4 - 10.2 mg/dL AO ADM SS Chloride [Moles/Vol] 105 mmol/L Invalid Interpretation Code 98 - 107 mmol/L AO ADM SS Cholesterol [Mass/Vol] 149 mg/dL Invalid Interpretation Code 0 - 200 mg/dL AO ADM SS Cholesterol in HDL [Mass/Vol] 38 mg/dL Invalid Interpretation Code 40 - 60 mg/dL AO ADM SS Cholesterol in LDL [Mass/Vol] 90 mg/dL Invalid Interpretation Code 0 - 130 mg/dL AO ADM SS CO2 [Moles/Vol] 30 mmol/L Invalid Interpretation Code 23 - 31 mmol/L AO ADM SS Creatinine [Mass/Vol] 0.90 mg/dL Invalid Interpretation Code 0.70 - 1.30 mg/dL AO ADM SS Electrolyte Balance 6.0 mEq/L Invalid Interpretation Code 4.0 - 15.0 mEq/L AO ADM SS Globulin 2.8 G/dL Invalid Interpretation Code AO ADM SS Glucose [Mass/Vol] 98 mg/dL Invalid Interpretation Code 83 - 110 mg/dL AO ADM SS Potassium [Moles/Vol] 5.7 mmol/L Invalid Interpretation Code 3.5 - 5.1 mmol/L AO ADM SS Protein [Mass/Vol] 7.0 G/dL Invalid Interpretation Code 6.4 - 8.2 G/dL AO ADM SS Sodium [Moles/Vol] 141 mmol/L Invalid Interpretation Code 136 - 145 mmol/L AO ADM SS Triglyceride [Mass/Vol] 107 mg/dL Invalid Interpretation Code 0 - 150 mg/dL AO ADM SS Urea nitrogen [Mass/Vol] 19 mg/dL Invalid Interpretation Code 7 - 18 mg/dL AO ADM SS Urea nitrogen/Creatinine [Mass ratio] 21 ratio Invalid Interpretation Code 7 - 27 ratio AO ADM SS Uric Acid Lvl 3.6 mg/dL Invalid Interpretation Code 3.5 - 7.2 mg/dL AO ADM SS LABORATORYOrdered By: Georeg Gotti on 07-08-2021 Basophil, Absolute 0.10 103/mcL Invalid Interpretation Code 0.00 - 0.19 10^3/mcL AO Auto Heme SS Basophils/100 WBC (Bld) 0.6 % Invalid Interpretation Code 0.0 - 2.5 % AO Auto Heme SS Eosinophil, Absolute 0.10 103/mcL Invalid Interpretation Code 0.00 - 0.40 10^3/mcL AO Auto Heme SS Eosinophils/100 WBC (Bld) 1.6 % Invalid Interpretation Code 0.0 - 7.0 % AO Auto Heme SS Erythrocyte distribution width (RBC) [Ratio] 13.1 % Invalid Interpretation Code 11.5 - 14.5 % AO Auto Heme SS Hematocrit (Bld) [Volume fraction] 45.4 % Invalid Interpretation Code 42.0 - 52.0 % AO Auto Heme SS Hemoglobin (Bld) [Mass/Vol] 15.2 G/dL Invalid Interpretation Code 14.0 - 18.0 G/dL AO Auto Heme SS Lymphocyte, Absolute 1.70 103/mcL Invalid Interpretation Code 0.77 - 3.85 10^3/mcL AO Auto Heme SS Lymphocytes/100 WBC (Bld) 18.8 % Invalid Interpretation Code 10.0 - 50.0 % AO Auto Heme SS MCH (RBC) [Entitic mass] 30.6 pg Invalid Interpretation Code 27.0 - 31.2 pg AO Auto Heme SS MCHC (RBC) [Mass/Vol] 33.4 G/dL Invalid Interpretation Code 31.8 - 35.4 G/dL AO Auto Heme SS MCV (RBC) [Entitic vol] 91.8 fL Invalid Interpretation Code 80.0 - 94.0 fL AO Auto Heme SS Monocyte, Absolute 0.70 103/mcL Invalid Interpretation Code 0.15 - 1.00 10^3/mcL AO Auto Heme SS Monocytes/100 WBC (Bld) 8.0 % Invalid Interpretation Code 1.7 - 13.0 % AO Auto Heme SS Neutrophil, Absolute 6.40 103/mcL Invalid Interpretation Code 2.85 - 6.16 10^3/mcL AO Auto Heme SS Neutrophils/100 WBC (Bld) 71.0 % Invalid Interpretation Code 37.0 - 80.0 % AO Auto Heme SS Platelet mean volume (Bld) [Entitic vol] 7.9 fL Invalid Interpretation Code 7.4 - 10.4 fL AO Auto Heme SS Platelets (Bld) [#/Vol] 291 103/mcL Invalid Interpretation Code 130 - 400 10^3/mcL AO Auto Heme SS RBC (Bld) [#/Vol] 4.95 106/mcL Invalid Interpretation Code 4.04 - 6.13 10^6/mcL AO Auto Heme SS WBC (Bld) [#/Vol] 9.10 103/mcL Invalid Interpretation Code 4.60 - 10.80 10^3/mcL AO Auto Heme SS LABORATORYOrdered By: SYSTEM SYSTEM on 07-08-2021 GFR 100 ml/min/1.73sqm Invalid Interpretation Code AO Chemistry S GFR Non- 82 ml/min/1.73sqm Invalid Interpretation Code AO Chemistry S LEAD ([id number])Ordered By: [employer] em [employer] on 02-23-2019 Lead (BldV) [Mass/Vol] 16 ug/dL Abnormal 0-4 Co [facility] Work Phone: Comment on above: Verified by repeat analysisAnalysis by inductively coupled plasma/massspectrometry (ICP/MS) Environmental Exposure: WHO Recommendation <20 Occupational Exposure: OSHA Lead Std 40 NICK 30 . Detection Limit = 1 PATIENT NOT FASTINGP ERFORMED BY: [employer] [place] [id number] GEMMA (ANTINUCLEAR ANTIBODY) ( [id number])Ordered By: Channel Sales Manager on 01-24-2019 Nuclear Ab Ql (S) Negative Normal Compreh ensive Internal Medicine Work Phone: Comment on above: PATIENT NOT FASTINGP ERFORMED BY: [facility] [id number] BY: [employer] [address] [id number] C-REACTIVE PROTEIN ([id number])Or dered By: Channel Sales Manager on 01-24-2019 CRP [Mass/Vol] 1 mg/L Normal 0-10 Comprehens gary [facility] Work Phone: Comment on above: PATIENT NOT FASTINGP ERFORMED BY: [employer] [place] [id number] BY: [employer] [address] [id number] CCP ANTIBODY ([id number])Ordered By: Channel Sales Manager on 01-24-2019 Cyclic citrullinated peptide IgA+IgG IA Qn 6 {units} Normal 0-19 [facility] Work Phone: Comment on above: Negative <20 Weak po sitive 20 - 39 Moderate positive 40 - 59 Strong positive >59 PATIENT NOT FASTINGP ERFORMED BY: [facility] [id number] BY: [employer] [address] [id number] LEAD ([id number])Ordered By: [employer] on 01-24-2019 Lead (BldV) [Mass/Vol] 16 ug/dL Abnormal 0-4 Co [facility] Internal Medicine Work Phone: Comment on above: Verified by repeat analysisAnalysis by inductively coupled plasma/massspectrometry (ICP/MS) Environmental Exposure: WHO Recommendation <20 Occupational Exposure: OSHA Lead Std 40 NICK 30 . Detection Limit = 1 PATIENT NOT FASTINGP ERFORMED BY: [employer] [id number] BY: [employer] [address] [id number] Lyme Disease Antibody W/ Ref nelly ([id number])Ordered By: Channel Sales Manager on 01-24-2019 B. burgdorferi IgG+IgM Qn (S) {index_val} Normal 0.00-0.90 [facility] Internal Medicine Work Phone: Comment on above: Negative <0.91 Equiv ocal 0.91 - 1.09 Positive >1.09 PATIENT NOT FASTINGP ERFORMED BY: DashThis70 [facility] [id number] BY: [employer] [address] [id number] RHEUMATOID FACTOR-QUANT ([id number] 31)Ordered By: Channel Sales Manager on 01-24-2019 Rheumatoid factor Qn [IU]/mL Normal 0.0-13.9 [facility] Internal Medicine Work Phone: Comment on above: PATIENT NOT FASTINGP ERFORMED BY: [employer]lin6370 [facility] [id number] BY: [employer] [id number] SED RATE ERYTHROCYTE (13152) Ordered By: Channel Sales Manager on 01-24-2019 ESR (Bld) [Velocity] 9 mm/h Normal 0-30 [facility] Work Phone: Comment on above: PATIENT NOT FASTINGP ERFORMED BY: [facility] Vlnepo7510 García RoadDublin [place] [id number] BY: [place] [address] [facility] [id number] Blood Glucose , Office ([phone])Ordered By: Warren Rios on 01-10-2019 Glucose Glucometer (BldC) [Moles/Vol] 130 1 Normal [facility] Work Phone: CBC, Platelets & Auto Diff ( [id number])Ordered By: Channel Sales Manager on 01-10-2019 Basophils (Bld) [#/Vol] 0.0 {x10E3/uL} Normal 0.0-0.2 [facility] Work Phone: Comment on above: PATIENT NOT FASTINGP ERFORMED BY: [facility] Yniroa1100 [address]ía RoadDublin [place] [id number] Basophils/100 WBC (Bld) 0 % Normal [facility] Work Phone: Comment on above: PATIENT NOT FASTINGP ERFORMED BY: [facility] Dingjd0979 [address]ía RoadDublin [place] [id number] Eosinophils (Bld) [#/Vol] 0.1 {x10E3/uL} Normal 0.0-0.4 [facility] Work Phone: Comment on above: PATIENT NOT FASTINGP ERFORMED BY: [facility] Rplcjx9770 [address] RoadDublin [place] [id number] Eosinophils/100 WBC (Bld) 1 % Normal [facility] Work Phone: Comment on above: PATIENT NOT FASTINGP ERFORMED BY: [facility] Ojvjht8967 [address]ía RoadDublin [place] [id number] Erythrocyte distribution width (RBC) [Ratio] 13.3 % Normal 12.3-15.4 [facility] Work Phone: Comment on above: PATIENT NOT FASTINGP ERFORMED BY: [facility] Varuug0225 [address]ía RoadDublin [place] [id number] Hematocrit (Bld) [Volume fraction] 42.4 % Normal 37.5-51.0 [facility] Work Phone: Comment on above: PATIENT NOT FASTINGP ERFORMED BY: SASHA [facility] Ipxwlm1612 [address]ía RoadDublin [place] [id number] Hemoglobin (Bld) [Mass/Vol] 14.0 g/dL Normal 13.0-17.7 [facility] Work Phone: Comment on above: PATIENT NOT FASTINGP ERFORMED BY: CB [facility] Cazuhf7269 [address]ía RoadDublin [place] [id number] Immature granulocytes (Bld) [#/Vol] 0.0 {x10E3/uL} Normal 0.0-0.1 [facility] Work Phone: Comment on above: PATIENT NOT FASTINGP ERFORMED BY: CB [facility] Pqtkho7184 [address]ía RoadDublin [place] [id number] Immature granulocytes/100 WBC (Bld) 0 % Normal [facility] Work Phone: Comment on above: PATIENT NOT FASTINGP ERFORMED BY: CB [facility] Esqpbd4814 [address] RoadDublin [place] [id number] Lymphocytes (Bld) [#/Vol] 1.5 {x10E3/uL} Normal 0.7-3.1 [facility] Work Phone: Comment on above: PATIENT NOT FASTINGP ERFORMED BY: CB [facility] Suvqkf6801 [address]ía RoadDublin [place] [id number] Lymphocytes/100 WBC (Bld) 23 % Normal [facility] Work Phone: Comment on above: PATIENT NOT FASTINGP ERFORMED BY: CB [facility] Hdbikq0960 [address] RoadDublin [place] [id number] MCH (RBC) [Entitic mass] 30.8 pg Normal 26.6-33.0 [facility] Work Phone: Comment on above: PATIENT NOT FASTINGP ERFORMED BY: CB [facility] Hztdcn1355 [address]ía RoadDublin [place] [id number] MCHC (RBC) [Mass/Vol] 33.0 g/dL Normal 31.5-35.7 [facility] prehensive Internal Medicine Work Phone: Comment on above: PATIENT NOT FASTINGP ERFORMED BY: SASHA [facility] Xzvijo6065 [address]ía RoadDublin [place] [id number] MCV (RBC) [Entitic vol] 93 fL Normal 79-97 [facility] Work Phone: Comment on above: PATIENT NOT FASTINGP ERFORMED BY: SASHA [facility] Owlmfe6539 [address] RoadDublin [place] [id number] Monocytes (Bld) [#/Vol] 0.7 {x10E3/uL} Normal 0.1-0.9 [facility] Work Phone: Comment on above: PATIENT NOT FASTINGP ERFORMED BY: SASHA LabCoshruti DuranKnwqho1781 García RoadDublin [place] [id number] Monocytes/100 WBC (Bld) 11 % Normal [facility] Work Phone: Comment on above: PATIENT NOT FASTINGP ERFORMED BY: SASHA LabCoshruti DuranHickjm9658 [address] RoadDublin [place] [id number] Neutrophils (Bld) [#/Vol] 4.5 {x10E3/uL} Normal 1.4-7.0 [facility] Work Phone: Comment on above: PATIENT NOT FASTINGP ERFORMED BY: SASHA [facility] Exnmli9185 [address] RoadDublin [place] [id number] Neutrophils/100 WBC (Bld) 65 % Normal [facility] Work Phone: Comment on above: PATIENT NOT FASTINGP ERFORMED BY: SASHA [facility] Ejssup2904 [address] RoadDublin [place] [id number] Platelets (Bld) [#/Vol] 287 {x10E3/uL} Normal 150-450 [facility] Work Phone: Comment on above: PATIENT NOT FASTINGP ERFORMED BY: SASHA [facility] Bwwwmf2074 [address] RoadDublin [place] [id number] RBC (Bld) [#/Vol] 4.55 {x10E6/uL} Normal 4.14-5.80 [facility] Internal Medicine Work Phone: Comment on above: PATIENT NOT FASTINGP ERFORMED BY: CB [facility] Lfkvrv8657 [address] RoadDublin [place] [id number] WBC (Bld) [#/Vol] 6.8 {x10E3/uL} Normal 3.4-10.8 [facility] prehensive Internal Medicine Work Phone: Comment on above: PATIENT NOT FASTINGP ERFORMED BY: CB [facility] Ohzgxd6338 García RoadUnc Health Pardeein [place] [id number] HgA1C , Office ([id number])Ordere d By: Warren Rios on 01-10-2019 HbA1c (Bld) [Mass fraction] 4.9 % Normal 4.6 - 7.1 [facility] Work Phone: Comment on above: 4.9 MICROALBUMINOrdered By: [employer] on 01-10-2019 Albumin DL <= 20 mg/L (U) [Mass/Vol] mg/dL Normal [facility] Work Phone: Comment on above: PATIENT NOT FASTINGP ERFORMED BY: CB [facility] Sybrhz[address] [facility] [id number] Albumin/Creatinine (U) [Mass ratio] <22.2 Normal 0.0-30.0 [facility] Work Phone: Comment on above: Normal: 0.0 - 30.0 A lbuminuria: 31.0 - 300.0 Clinical albuminuria: >300.0 PATIENT NOT FASTINGP ERFORMED BY: CB [facility] Klapap[address] [facility] [id number] Creatinine (U) [Mass/Vol] 13.5 mg/dL Normal [facility] Work Phone: Comment on above: PATIENT NOT FASTINGP ERFORMED BY: CB [facility] Mgsdsu6594 [address] [facility] InstituteDuin [place] [id number] Metabolic Panel, Comprehensi ve (13153)Ordered By: Channel Sales Manager on 01-10-2019 Albumin [Mass/Vol] 4.3 g/dL Normal 3.5-4.8 [facility] Internal Medicine Work Phone: Comment on above: PATIENT NOT FASTINGP ERFORMED BY: CB [facility] Pxpkey2719 [address] [facility] [place] [id number] Albumin/Globulin [Mass ratio] 2.0 {ratio} Normal 1.2-2.2 [facility] Work Phone: Comment on above: PATIENT NOT FASTINGP ERFORMED BY: CB [facility] Makztm4643 [address]ía RoadDublin [place] [id number] ALP [Catalytic activity/Vol] 74 [iU]/L Normal 39-117 [facility] Work Phone: Comment on above: PATIENT NOT FASTINGP ERFORMED BY: CB [facility] Dapytp2857 [address]ía RoadDublin [place] [id number] ALT [Catalytic activity/Vol] 16 [iU]/L Normal 0-44 [facility] Work Phone: Comment on above: PATIENT NOT FASTINGP ERFORMED BY: CB [facility] Txuuvn6957 [address] RoadDublin [place] [id number] AST [Catalytic activity/Vol] 23 [iU]/L Normal 0-40 [facility] Work Phone: Comment on above: PATIENT NOT FASTINGP ERFORMED BY: CB [facility] Wfjswr0476 [address] RoadDublin [place] [id number] Bilirubin [Mass/Vol] 1.2 mg/dL Normal 0.0-1.2 [facility] Work Phone: Comment on above: PATIENT NOT FASTINGP ERFORMED BY: [facility] Zpvyqc0211 [address] RoadDublin [place] [id number] Calcium [Mass/Vol] 9.6 mg/dL Normal 8.6-10.2 [facility] Internal Medicine Work Phone: Comment on above: PATIENT NOT FASTINGP ERFORMED BY: CB [facility] Vwyifi7511 [address] RoadDublin [place] [id number] Chloride [Moles/Vol] 107 mmol/L Abnormal 96-106 [facility] Work Phone: Comment on above: PATIENT NOT FASTINGP ERFORMED BY: CB [facility] Pjivzf1081 [address] RoadDublin [place] [id number] CO2 [Moles/Vol] 22 mmol/L Normal 20-29 [facility] Internal Medicine Work Phone: Comment on above: PATIENT NOT FASTINGP ERFORMED BY: CB [facility] Qkqydx6253 [address] RoadDublin [place] [id number] Creatinine [Mass/Vol] 0.94 mg/dL Normal 0.76-1.27 [facility] Work Phone: Comment on above: PATIENT NOT FASTINGP ERFORMED BY: CB [facility] Hqbbyw7691 [address] RoadDublin [place] [id number] GFR/1.73 sq M predicted among blacks CKD-EPI (S/P/Bld) [Vol rate/Area] 93 mL/min/1.73 Normal [facility] Work Phone: Comment on above: PATIENT NOT FASTINGP ERFORMED BY: CB [facility] Yzwetg1326 [address] RoadDublin [place] [id number] GFR/1.73 sq M predicted among non-blacks CKD-EPI (S/P/Bld) [Vol rate/Area] 80 mL/min/1.73 Normal [facility] Internal Medicine Work Phone: Comment on above: PATIENT NOT FASTINGP ERFORMED BY: CB [facility] Totrmp0522 [address] RoadDublin [place] [id number] Globulin (S) [Mass/Vol] 2.2 g/dL Normal 1.5-4.5 [facility] Internal Medicine Work Phone: Comment on above: PATIENT NOT FASTINGP ERFORMED BY: CB [facility] Xksovx4609 [address] RoadDublin [place] [id number] Glucose [Mass/Vol] 101 mg/dL Abnormal 65-99 [facility] Internal Medicine Work Phone: Comment on above: PATIENT NOT FASTINGP ERFORMED BY: CB [facility] Eapaqt3020 [address] RoadDublin [place] [id number] Potassium [Moles/Vol] 4.3 mmol/L Normal 3.5-5.2 [facility] Internal Medicine Work Phone: Comment on above: PATIENT NOT FASTINGP ERFORMED BY: CB [facility] Fyexbi0363 [address] RoadDublin [place] [id number] Protein [Mass/Vol] 6.5 g/dL Normal 6.0-8.5 [facility] Internal Medicine Work Phone: Comment on above: PATIENT NOT FASTINGP ERFORMED BY: SASHA [facility] Asjmgx5746 [address] RoadDublin [place] [id number] Sodium [Moles/Vol] 145 mmol/L Abnormal 134-144 [facility] Internal Medicine Work Phone: Comment on above: PATIENT NOT FASTINGP ERFORMED BY: SASHA [facility] Msnxsl9515 [address] RoadDublin [place] [id number] Urea nitrogen [Mass/Vol] 18 mg/dL Normal 8-27 [facility] Work Phone: Comment on above: PATIENT NOT FASTINGP ERFORMED BY: SASHA LabCoshruti Ydocba2002 [address] RoadDublin [place] [id number] Urea nitrogen/Creatinine [Mass ratio] 19 mg/mg Normal 10-24 [facility] Work Phone: Comment on above: PATIENT NOT FASTINGP ERFORMED BY: SASHA [facility] Fuqnvs4933 [address] RoadDublin [place] [id number] TSH (THYROID STIMULATING HOR DINAH) ([id number])Ordered By: Channel Sales Manager on 01-10-2019 TSH Qn 1.360 {uIU/mL} Normal 0.450-4.500 [facility] Internal Medicine Work Phone: Comment on above: PATIENT NOT FASTINGP ERFORMED BY: CB [facility] Cinkif0559 [address] RoadDublin [place] [id number] URIC ACID BLOOD ([id number])Order ed By: Channel Sales Manager on 01-10-2019 Urate [Mass/Vol] 5.6 mg/dL Normal 3.7-8.6 [facility] Internal Medicine Work Phone: Comment on above: Therapeutic target f or gout patients: <6.0 PATIENT NOT FASTINGP ERFORMED BY: SASHA [facility] Xjckzg3110 [address] RoadDublin [place] [id number] URINALYSIS ([id number])Ordered By : Channel Sales Manager on 01-10-2019 Appearance (U) Clear Normal Comprehens gary Internal Medicine Work Phone: Comment on above: PATIENT NOT FASTINGP ERFORMED BY: SASHA [facility] Tgjzlm1064 [address]ía RoadDublin [place] [id number] Bilirubin Ql (U) Negative Normal Comprehe nsive Internal Medicine Work Phone: Comment on above: PATIENT NOT FASTINGP ERFORMED BY: SASHA [facility] Vdbfpd1460 García RoadDublin [place] [id number] Color (U) Yellow Normal [facility] Work Phone: Comment on above: PATIENT NOT FASTINGP ERFORMED BY: SASHA [facility] Jjxuyv5934 García RoadDublin [place] [id number] Glucose Ql (U) Negative Normal Comprehens gary Internal Medicine Work Phone: Comment on above: PATIENT NOT FASTINGP ERFORMED BY: SASHA [facility] Aesdgh5501 García RoadDublin [place] [id number] Hemoglobin Ql (U) Negative Normal Compreh ensive Internal Medicine Work Phone: Comment on above: PATIENT NOT FASTINGP ERFORMED BY: SASHA [facility] Fmcwtq2329 García RoadDublin [place] [id number] Ketones Ql (U) Negative Normal Comprehens gary Internal Medicine Work Phone: Comment on above: PATIENT NOT FASTINGP ERFORMED BY: SASHA [facility] Mlipso2164 García RoadDublin [place] [id number] Leukocyte esterase Test strip Ql (U) Negative Normal [facility] Work Phone: Comment on above: PATIENT NOT FASTINGP ERFORMED BY: SASHA [facility] Qvtqso3327 García RoadDublin [place] [id number] Microscopic observation LM Nom (Urine sed) MICNIP Normal [facility] Work Phone: Comment on above: Microscopic not anika cated and not performed. PATIENT NOT FASTINGP ERFORMED BY: SASHA [facility] Zgrwpf9963 García RoadDublin [place] [id number] Nitrite Ql (U) Negative Normal Comprehens gary Internal Medicine Work Phone: Comment on above: PATIENT NOT FASTINGP ERFORMED BY: SASHA [facility] Dkglzu3388 García RoadDublin [place] [id number] pH (U) 6.5 [pH] Normal 5.0-7.5 [facility] Work Phone: Comment on above: PATIENT NOT FASTINGP ERFORMED BY: SASHA [facility] Pqvpza9905 [address]ía RoadDublin [place] [id number] Protein Ql (U) Negative Normal Comprehens gary Internal Medicine Work Phone: Comment on above: PATIENT NOT FASTINGP ERFORMED BY: SASHA [facility] Ntdlpy2405 García RoadDublin [place] [id number] Specific gravity (U) [Rel density] 1.005 1 Normal 1.005-1.030 [facility] Work Phone: Comment on above: PATIENT NOT FASTINGP ERFORMED BY: SASHA [facility] Soumpg8068 García RoadDublin [place] [id number] Urobilinogen Test strip (U) [Mass/Vol] 0.2 mg/dL Normal 0.2-1.0 Comprehensi ve Internal Medicine Work Phone: Comment on above: PATIENT NOT FASTINGP ERFORMED BY: SASHA [facility] Udcall0348 [address]ía RoadDublin [place] [id number] Metabolic Panel, Comprehensi ve (11892)Ordered By: Channel Sales Manager on 08-30-2018 Albumin mass conc 4.1 g/dL Normal 3.5-4.8 Compreh ensive Internal Medicine Work Phone: Comment on above: PATIENT WAS FASTINGP ERFORMED BY: CB [facility] Vtudin5576 García RoadDublin [place] [id number] Albumin/Globulin mass ratio 2.1 {ratio} Normal 1.2-2.2 [facility] Work Phone: Comment on above: PATIENT WAS FASTINGP ERFORMED BY: CB [facility] Eoiale9173 [address]ía RoadDublin [place] [id number] ALP enzyme act/vol 61 [iU]/L Normal 39-117 Compre hensive Internal Medicine Work Phone: Comment on above: PATIENT WAS FASTINGP ERFORMED BY: SASHA [facility] Mosjts3009 [address]ía RoadDublin [place] [id number] ALT enzyme act/vol 19 [iU]/L Normal 0-44 [facility] Internal Medicine Work Phone: Comment on above: PATIENT WAS FASTINGP ERFORMED BY: SASHA [facility] Twfpbu2625 García RoadDublin [place] [id number] AST enzyme act/vol 23 [iU]/L Normal 0-40 [facility] Work Phone: Comment on above: PATIENT WAS FASTINGP ERFORMED BY: SASHA [facility] Qrwiim1579 [address]ía RoadDublin [place] [id number] Bilirubin mass conc 0.8 mg/dL Normal 0.0-1.2 Compr ensive Internal Medicine Work Phone: Comment on above: PATIENT WAS FASTINGP ERFORMED BY: SASHA [facility] Mmlrnf2047 [address]ía RoadDublin [place] [id number] Calcium mass conc 9.3 mg/dL Normal 8.6-10.2 Compreh [facility] Work Phone: Comment on above: PATIENT WAS FASTINGP ERFORMED BY: SASHA [facility] Ihiafs0215 García RoadDublin [place] [id number] Chloride molar conc 107 mmol/L Abnormal 96-106 Compr ensive Internal Medicine Work Phone: Comment on above: PATIENT WAS FASTINGP ERFORMED BY: SASHA [facility] Lzapfx4091 García RoadDublin [place] [id number] CO2 molar conc 24 mmol/L Normal 20-29 Comprehens gary Internal Medicine Work Phone: Comment on above: PATIENT WAS FASTINGP ERFORMED BY: SASHA [facility] Azokrm2418 García RoadDublin [place] [id number] Creatinine mass conc 1.04 mg/dL Normal 0.76-1.27 Comp [facility] Work Phone: Comment on above: PATIENT WAS FASTINGP ERFORMED BY: SASHA [facility] Sfjyui2614 García RoadDublin [place] [id number] GFR/1.73 sq M predicted among blacks CKD-EPI vol rate/area (S/P/Bld) 83 mL/min/1.73 Normal [facility] Work Phone: Comment on above: PATIENT WAS FASTINGP ERFORMED BY: SASHA KiahDavid Gwrbph5649 García Roadblin [place] [id number] GFR/1.73 sq M predicted among non-blacks CKD-EPI vol rate/area (S/P/Bld) 71 mL/min/1.73 Normal Comprehensiv e Internal Medicine Work Phone: Comment on above: PATIENT WAS FASTINGP ERFORMED BY: SASHA LabDavid DuranPjusny0676 Garc[address] [facility] [place] [id number] Globulin mass conc (S) 2.0 g/dL Normal 1.5-4.5 Co mprehensive Internal Medicine Work Phone: Comment on above: PATIENT WAS FASTINGP ERFORMED BY: SASHA Duranlin6370 [facility] [id number] Glucose mass conc 95 mg/dL Normal 65-99 Compreh ensive Internal Medicine Work Phone: Comment on above: PATIENT WAS FASTINGP ERFORMED BY: SASHA LabDavid DuranBidqko6350 Garc[address] [facility] [id number] Potassium molar conc 5.0 mmol/L Normal 3.5-5.2 Comp rehensive Internal Medicine Work Phone: Comment on above: PATIENT WAS FASTINGP ERFORMED BY: SASHA LabMariela Tnfoho3814 Garc[address] [facility] [id number] Protein mass conc 6.1 g/dL Normal 6.0-8.5 Compreh ensive Internal Medicine Work Phone: Comment on above: PATIENT WAS FASTINGP ERFORMED BY: SASHA LabCoshruti DuranWalewa4518 [address] [facility] [id number] Sodium molar conc 145 mmol/L Abnormal 134-144 Compreh ensive Internal Medicine Work Phone: Comment on above: PATIENT WAS FASTINGP ERFORMED BY: SASHA LabDavid DuranVvxzib3346 García [facility] [id number] Urea nitrogen mass conc 25 mg/dL Normal 8-27 [facility] Work Phone: Comment on above: PATIENT WAS FASTINGP ERFORMED BY: SASHA [employer] Xhaxfo3416 [facility] [id number] Urea nitrogen/Creatinine mass ratio 24 mg/mg Normal 10-24 [facility] Work Phone: Comment on above: PATIENT WAS FASTINGP ERFORMED BY: [employer] Kqslxp8314 [facility] [id number] PSA (PROSTATE SPECIFIC ANTIG EN) (V76.44)Ordered By: Channel Sales Manager on 08-30-2018 Prostate specific Ag mass conc 2.5 ng/mL Normal 0.0-4.0 [facility] Work Phone: Comment on above: [employer] ECLIA methodol ogy. .According to the [place] [employer], Serum PSA shoulddecrease and remain at undetectable levels after radicalprostatectomy. The AUA defines biochemical recurrence as an initialPSA value 0.2 ng/mL or greater followed by a subsequent confirmatoryPSA value 0.2 ng/mL or greater.Values obtained with different assay methods or kits cannot be usedinterchangeably. Results cannot be interpreted as absolute evidenceof the presence or absence of malignant disease. PATIENT WAS FASTINGP ERFORMED BY: SASHA [email or web address] Gbrdkn1883 [facility] [id number] Lipid ProfileOrdered By: Kodi tem Cheese Processor on 06-09-2018 Cholesterol in HDL mass conc 41 mg/dL Normal [facility] Work Phone: Comment on above: The drugs N-Acetylcy steine and Metamizole may falselydepress this assay. Reference Range HDL <40 mg/dL Low HDL Cholesterol HDL >or= 60 mg/dL High HDL Cholesterol [facility] [address] [place], [address] Cholesterol in LDL mass conc 64 mg/dL Normal 0-130 [facility] Work Phone: Comment on above: [facility] [address] [place], [place], [address] Cholesterol in VLDL mass conc 24 mg/dL Normal 5-40 [facility] Work Phone: Comment on above: [facility] [address] [place], [place], [address] Cholesterol mass conc 129 mg/dL Normal Com prehensive Internal Medicine Work Phone: Comment on above: <200 mg/dL Desirable 200-240 mg/dL Borderline >240 mg/dL High Risk [facility] [address] [place], [place], [address] Triglyceride mass conc 119 mg/dL Normal Co mprehensive Internal Medicine Work Phone: Comment on above: The drugs N-Acetylcy steine and Metamizole may falselydepress this assay.Serum Triglycerides Reference Interval Normal <150 mg/dL Borderline high 150 - 199 mg/dL High 200 - 499 mg/dL Very High > or = 500 mg/dL [facility] [address] [place], [place], [address] Liver ProfileOrdered By: Kodi tem Cheese Processor on 06-09-2018 Albumin mass conc 3.4 g/dL Normal 3.2-5.0 Compreh ensive Internal Medicine Work Phone: Comment on above: [facility] [address] [place], [place], [address] ALP enzyme act/vol 78 U/L Normal 45-117 Compre [facility] Work Phone: Comment on above: [facility] [address] [place], [place], [address] ALT enzyme act/vol 23 U/L Normal 16-61 Compre hensive Internal Medicine Work Phone: Comment on above: [facility] [address] [place], [place], [address] AST enzyme act/vol 13 U/L Abnormal 15-37 Compre [facility] Internal [facility] Work Phone: Comment on above: [facility] [address] [place], [place], [address] Bilirubin mass conc 0.90 mg/dL Normal 0.20-1.00 Compr ehensive Internal Medicine Work Phone: Comment on above: [facility] [address] [place], [place], [address] Bilirubin.direct mass conc 0.19 mg/dL Normal 0.00-0.30 [facility] Work Phone: Comment on above: [facility] [address] [place], [place], [address] Globulin mass conc (S) 3.2 g/dL Normal 2.2-4.2 Co cox bransonensive Internal Medicine Work Phone: Comment on above: [facility] [address] [place], [place], [address] Protein mass conc 6.6 g/dL Normal 6.4-8.2 Compreh ensive Internal Medicine Work Phone: Comment on above: [facility] [address] [place], [place], [address] Comp. Metabolic Panel (14)Or dered By: Channel Sales Manager on 02-17-2018 Albumin mass conc 4.3 g/dL Normal 3.5-4.8 Compreh ensive Internal Medicine Work Phone: Comment on above: PATIENT NOT FASTINGP ERFORMED BY: SASHA Zipalong70 [facility] [id number] Albumin/Globulin mass ratio 2.0 {ratio} Normal 1.2-2.2 [facility] Work Phone: Comment on above: PATIENT NOT FASTINGP ERFORMED BY: SASHA Zipalong70 [facility] [id number] ALP enzyme act/vol 72 [iU]/L Normal 39-117 Compre hensive Internal Medicine Work Phone: Comment on above: PATIENT NOT FASTINGP ERFORMED BY: SASHA [employer] [facility] [id number] ALT enzyme act/vol 23 [iU]/L Normal 0-44 Compre [facility] Internal Medicine Work Phone: Comment on above: PATIENT NOT FASTINGP ERFORMED BY: CB [facility] Wccrjl4286 García RoadDublin [place] [id number] AST enzyme act/vol 20 [iU]/L Normal 0-40 Compre [facility] Internal Medicine Work Phone: Comment on above: PATIENT NOT FASTINGP ERFORMED BY: CB [facility] Ixiydr5699 [address]ía RoadDublin [place] [id number] Bilirubin mass conc 0.6 mg/dL Normal 0.0-1.2 Compr ensive Internal Medicine Work Phone: Comment on above: PATIENT NOT FASTINGP ERFORMED BY: CB [facility] Phxcdm4822 García RoadUnc Health Pardeein [place] [id number] Calcium mass conc 9.5 mg/dL Normal 8.6-10.2 Compreh [facility] Internal [facility] Work Phone: Comment on above: PATIENT NOT FASTINGP ERFORMED BY: CB [facility] Ibfcuu6133 García RoadUnc Health Pardeein [place] [id number] Chloride molar conc 99 mmol/L Normal 96-106 Compr ensive Internal Medicine Work Phone: Comment on above: PATIENT NOT FASTINGP ERFORMED BY: SASHA [facility] Zoccdq9741 [address] [facility] [place] [id number] CO2 molar conc 24 mmol/L Normal 20-29 Comprehens gary Internal Medicine Work Phone: Comment on above: PATIENT NOT FASTINGP ERFORMED BY: CB [facility] Udejqr4722 García RoadDublin [place] [id number] Creatinine mass conc 0.93 mg/dL Normal 0.76-1.27 Comp [facility] Work Phone: Comment on above: PATIENT NOT FASTINGP ERFORMED BY: CB [facility] Vbyjcz7949 García Roadblin [place] [id number] GFR/1.73 sq M predicted among blacks CKD-EPI vol rate/area (S/P/Bld) 94 mL/min/1.73 Normal [facility] Work Phone: Comment on above: PATIENT NOT FASTINGP ERFORMED BY: SASHA [facility] Rkujze6030 [address]ía RoadDublin [place] [id number] GFR/1.73 sq M predicted among non-blacks CKD-EPI vol rate/area (S/P/Bld) 82 mL/min/1.73 Normal Comprehensiv e Internal Medicine Work Phone: Comment on above: PATIENT NOT FASTINGP ERFORMED BY: CB [facility] Piximf3234 García RoadDublin [place] [id number] Globulin mass conc (S) 2.2 g/dL Normal 1.5-4.5 Co mprehensive Internal Medicine Work Phone: Comment on above: PATIENT NOT FASTINGP ERFORMED BY: SASHA [facility] Xdlltv9919 García RoadDublin [place] [id number] Glucose mass conc 84 mg/dL Normal 65-99 Compreh ensive Internal Medicine Work Phone: Comment on above: PATIENT NOT FASTINGP ERFORMED BY: CB [facility] Twlwag3898 [address]ía RoadDublin [place] [id number] Potassium molar conc 4.1 mmol/L Normal 3.5-5.2 Comp rehensive Internal Medicine Work Phone: Comment on above: PATIENT NOT FASTINGP ERFORMED BY: SASHA [facility] Zmfytc2639 [address]ía RoadDublin [place] [id number] Protein mass conc 6.5 g/dL Normal 6.0-8.5 Compreh ensive Internal Medicine Work Phone: Comment on above: PATIENT NOT FASTINGP ERFORMED BY: CB [facility] Nwnvis5403 Gr[address]ía RoadDublin [place] [id number] Sodium molar conc 141 mmol/L Normal 134-144 Compreh ensive Internal Medicine Work Phone: Comment on above: PATIENT NOT FASTINGP ERFORMED BY: CB [facility] Aobjzx9415 García RoadDublin [place] [id number] Urea nitrogen mass conc 20 mg/dL Normal 8-27 [facility] Work Phone: Comment on above: PATIENT NOT FASTINGP ERFORMED BY: [facility] Fodmsj4344 [facility] [id number] Urea nitrogen/Creatinine mass ratio 22 mg/mg Normal 10-24 [facility] Work Phone: Comment on above: PATIENT NOT FASTINGP ERFORMED BY: [facility] Skdfxp4272 [facility] [id number] URIC ACID BLOOD (25264)Order ed By: Channel Sales Manager on 02-17-2018 Urate mass conc 7.6 mg/dL Normal 3.7-8.6 Comprehen sive Internal Medicine Work Phone: Comment on above: Therapeutic target f or gout patients: <6.0 PATIENT NOT FASTINGP ERFORMED BY: LabCoRobert Wood Johnson University HospitalLnvyvh8798 [facility] [id number] Blood Glucose , Office ([phone] 2)Ordered By: Marleen Fountain on 11-30-2017 Glucose Glucometer molar conc (BldC) 97 1 Normal [facility] Work Phone: HEPATITIS C ANTIBODY (17969) Ordered By: Channel Sales Manager on 11-30-2017 HCV Ab Signal/Cutoff IA RelACnc {ratio} Normal 0.0-0.9 [facility] Work Phone: Comment on above: Negative: < 0.8 Inde terminate: 0.8 - 0.9 Positive: > 0.9 . The CDC recommends that a positive HCV antibody result be followed up with a HCV Nucleic Acid Amplification test (243380). PATIENT NOT FASTINGP ERFORMED BY: [facility] Rbshew3176 [facility] [id number] HgA1C , Office (54293)Ordere d By: Marleen Fountain on 11-30-2017 Hemoglobin A1c/Hemoglobin.total mass fraction (Bld) 5.2 % Normal 4.6 - 7.1 Comprehensiv e Internal Medicine Work Phone: Urinalysis, Office ([id number])Or dered By: Marleen Fountain on 11-30-2017 Bilirubin Ql (U) Negative Normal Comprehe nsive Internal Medicine Work Phone: Glucose Test strip mass conc (U) Negative Normal [facility] Work Phone: Hemoglobin Ql (U) Negative Normal Compreh ensive Internal Medicine Work Phone: Ketones Ql (U) Negative Normal Comprehens gary Internal Medicine Work Phone: Leukocyte esterase Test strip Ql (U) Negative Normal [facility] Work Phone: Nitrite Ql (U) Negative Normal Comprehens gary Internal Medicine Work Phone: pH (U) 7 [pH] Normal [facility] Work Phone: Protein Ql (U) Negative Normal Comprehens gary Internal Medicine Work Phone: Specific gravity Relative Density (U) 1.010 1 Normal Comprehensi ve Internal Medicine Work Phone: Urobilinogen mass/time (24H U) Normal Normal [facility] Work Phone: Lipid ProfileOrdered By: Kodi tem Cheese Processor on 10-19-2017 Cholesterol in HDL mass conc 42 mg/dL Normal [facility] Work Phone: Comment on above: The drugs N-Acetylcy steine and Metamizole may falselydepress this assay. Reference Range HDL <40 mg/dL Low HDL Cholesterol HDL >or= 60 mg/dL High HDL Cholesterol Order Date: 10/09/16 Order Info: [id number] - *Lipid Profile CC PCPComments: 12 hours fasting, may have water.[facility] [address] [place], [place], [address] Cholesterol in LDL mass conc 53 mg/dL Normal 0-130 [facility] Work Phone: Comment on above: Order Date: 10/09/16 Order Info: 24055-3 - *Lipid Profile CC PCPComments: 12 hours fasting, may have water.[facility] [address] [place], [place], [address] Cholesterol in VLDL mass conc 15 mg/dL Normal 5-40 [facility] Work Phone: Comment on above: Order Date: 10/09/16 Order Info: 53424-4 - *Lipid Profile CC PCPComments: 12 hours fasting, may have water.[facility] [address] [place], [place], [address] Cholesterol mass conc 110 mg/dL Normal Com prehensive Internal Medicine Work Phone: Comment on above: <200 mg/dL Desirable 200-240 mg/dL Borderline >240 mg/dL High Risk Order Date: 10/09/16 Order Info: 39957-4 - *Lipid Profile CC PCPComments: 12 hours fasting, may have water.[facility] [address] [place], [place], [address] Triglyceride mass conc 73 mg/dL Normal Co [facility] hospitalehensive Internal Medicine Work Phone: Comment on above: The drugs N-Acetylcy steine and Metamizole may falselydepress this assay.Serum Triglycerides Reference Interval Normal <150 mg/dL Borderline high 150 - 199 mg/dL High 200 - 499 mg/dL Very High > or = 500 mg/dL Order Date: 10/09/16 Order Info: 30609-0 - *Lipid Profile CC PCPComments: 12 hours fasting, may have water.[facility] [address] [place], [place], [address] Liver ProfileOrdered By: Kodi tem Cheese Processor on 10-19-2017 Albumin mass conc 3.8 g/dL Normal 3.2-5.0 Compreh ensive Internal Medicine Work Phone: Comment on above: Order Date: 10/09/16 Order Info: 18887-5 - *Lipid Profile CC PCPComments: 12 hours fasting, may have water.[facility] [address] [place], [place], [address] ALP enzyme act/vol 70 U/L Normal 45-117 Compre hensive Internal Medicine Work Phone: Comment on above: Order Date: 10/09/16 Order Info: 13610-4 - *Lipid Profile CC PCPComments: 12 hours fasting, may have water.[facility] [address] [place], [place], [address] ALT enzyme act/vol 31 U/L Normal 16-61 [facility] Internal Medicine Work Phone: Comment on above: Order Date: 10/09/16 Order Info: 01468-0 - *Lipid Profile CC PCPComments: 12 hours fasting, may have water.[facility] [address] [place], [phone](797) AST enzyme act/vol 24 U/L Normal 15-37 [facility] Internal Medicine Work Phone: Comment on above: Order Date: 10/09/16 Order Info: 12377-3 - *Lipid Profile CC PCPComments: 12 hours fasting, may have water.[facility] [address] [place], [address] Bilirubin mass conc 1.30 mg/dL Abnormal 0.20-1.00 [facility] Internal Medicine Work Phone: Comment on above: Order Date: 10/09/16 Order Info: 22576-7 - *Lipid Profile CC PCPComments: 12 hours fasting, may have water.[facility] [address] [place], [address] Bilirubin.direct mass conc 0.32 mg/dL Abnormal 0.00-0.30 [facility] Internal Medicine Work Phone: Comment on above: Order Date: 10/09/16 Order Info: 04657-8 - *Lipid Profile CC PCPComments: 12 hours fasting, may have water.[facility] [address] [place], [address] Globulin mass conc (S) 3.2 g/dL Normal 2.2-4.2 Co [facility] Internal Medicine Work Phone: Comment on above: Order Date: 10/09/16 Order Info: 03302-2 - *Lipid Profile CC PCPComments: 12 hours fasting, may have water.[facility] [address] [place], [address] Protein mass conc 7.0 g/dL Normal 6.4-8.2 Compreh ensive Internal Medicine Work Phone: Comment on above: Order Date: 10/09/16 Order Info: 04674-9 - *Lipid Profile CC PCPComments: 12 hours fasting, may have water.[facility] [address] [place], [address] FHVSO-TUMTTYCOMMI-RXIGO (821 05)Ordered By: Channel Sales Manager on 08-30-2017 AFP.tumor marker mass conc 4.1 ng/mL Normal 0.0-8.3 [facility] Work Phone: Comment on above: Luis ECLIA methodol ogy PATIENT WAS FASTINGP ERFORMED BY: SASHA [employer] [facility] [id number] Blood Glucose , Office (6096 2)Ordered By: Barby Parham on 08-30-2017 Glucose Glucometer molar conc (BldC) 101 1 Normal [facility] Work Phone: CBC, Platelets & Auto Diff ( 54022)Ordered By: Channel Sales Manager on 08-30-2017 Basophils #/vol (Bld) 0.1 {x10E3/uL} Normal 0.0-0.2 [facility] Work Phone: Comment on above: PATIENT WAS FASTINGP ERFORMED BY: SASHA Zipalong70 [facility] [id number] Basophils/100 WBC (Bld) 1 % Normal [facility] Work Phone: Comment on above: PATIENT WAS FASTINGP ERFORMED BY: DashThis70 [facility] [id number] Eosinophils #/vol (Bld) 0.2 {x10E3/uL} Normal 0.0-0.4 [facility] Work Phone: Comment on above: PATIENT WAS FASTINGP ERFORMED BY: Dash[employer]70 [facility] [id number] Eosinophils/100 WBC (Bld) 2 % Normal [facility] Work Phone: Comment on above: PATIENT WAS FASTINGP ERFORMED BY: [employer] [facility] [id number] Erythrocyte distribution width Ratio (RBC) 14.0 % Normal 12.3-15.4 [facility] Work Phone: Comment on above: PATIENT WAS FASTINGP ERFORMED BY: SASHA KiahAspirus Ontonagon Hospital6370 [address] [facility] [id number] Hematocrit Volume Fraction (Bld) 46.4 % Normal 37.5-51.0 [facility] Work Phone: Comment on above: PATIENT WAS FASTINGP ERFORMED BY: [facility]6370 [facility] [id number] Hemoglobin mass conc (Bld) 15.4 g/dL Normal 13.0-17.7 [facility] Work Phone: Comment on above: PATIENT WAS FASTINGP ERFORMED BY: [facility] Khrlmt1742 [facility] [id number] Immature granulocytes #/vol (Bld) 0.0 {x10E3/uL} Normal 0.0-0.1 [facility] Work Phone: Comment on above: PATIENT WAS FASTINGP ERFORMED BY: [facility]6370 [facility] [facility] [id number] Immature granulocytes/100 WBC (Bld) 0 % Normal [facility] Work Phone: Comment on above: PATIENT WAS FASTINGP ERFORMED BY: [facility]6370 [facility] [id number] Lymphocytes #/vol (Bld) 2.7 {x10E3/uL} Normal 0.7-3.1 [facility] Work Phone: Comment on above: PATIENT WAS FASTINGP ERFORMED BY: [facility]6370 García [facility] [id number] Lymphocytes/100 WBC (Bld) 26 % Normal [facility] Work Phone: Comment on above: PATIENT WAS FASTINGP ERFORMED BY: [facility]6370 García [facility] [id number] MCH Entitic mass (RBC) 30.5 pg Normal 26.6-33.0 [facility] Internal Medicine Work Phone: Comment on above: PATIENT WAS FASTINGP ERFORMED BY: SASHA LabCoshruti DuranKrejhn7913 García [facility] [id number] MCHC mass conc (RBC) 33.2 g/dL Normal 31.5-35.7 [facility] Internal Medicine Work Phone: Comment on above: PATIENT WAS FASTINGP ERFORMED BY: SASHA LabCo Izszey2317 [facility] [id number] MCV Entitic volume (RBC) 92 fL Normal 79-97 [facility] Work Phone: Comment on above: PATIENT WAS FASTINGP ERFORMED BY: SASHA Vargas6370 García [facility] [id number] Monocytes #/vol (Bld) 0.9 {x10E3/uL} Normal 0.1-0.9 [facility] Work Phone: Comment on above: PATIENT WAS FASTINGP ERFORMED BY: SASHA LabDavid DuranRzholv4574 [facility] [id number] Monocytes/100 WBC (Bld) 9 % Normal [facility] Work Phone: Comment on above: PATIENT WAS FASTINGP ERFORMED BY: SASHA LabDavid DuranFfbrhx2446 [facility] [id number] Neutrophils #/vol (Bld) 6.7 {x10E3/uL} Normal 1.4-7.0 [facility] Work Phone: Comment on above: PATIENT WAS FASTINGP ERFORMED BY: SASHA LabCoshruti Dfhset3679 García [facility] [id number] Neutrophils/100 WBC (Bld) 62 % Normal [facility] Work Phone: Comment on above: PATIENT WAS FASTINGP ERFORMED BY: SASHA LabCo Wwormy4070 García [facility] [id number] Platelets #/vol (Bld) 270 {x10E3/uL} Normal 150-379 [facility] Work Phone: Comment on above: PATIENT WAS FASTINGP ERFORMED BY: CB [facility] Cyhidt6380 García RoadDublin [place] [id number] RBC #/vol (Bld) 5.05 {x10E6/uL} Normal 4.14-5.80 Comp rehensive Internal Medicine Work Phone: Comment on above: PATIENT WAS FASTINGP ERFORMED BY: CB [facility] Wqrgpy7804 García RoadDublin [place] [id number] WBC #/vol (Bld) 10.6 {x10E3/uL} Normal 3.4-10.8 Comp rehensive Internal Medicine Work Phone: Comment on above: PATIENT WAS FASTINGP ERFORMED BY: CB [facility] Daudea8852 García RoadDublin [place] [id number] HEPATIC FUNCTION PANEL ([id number] [id number])Ordered By: Channel Sales Manager on 08-30-2017 Bilirubin.direct mass conc 0.39 mg/dL Normal 0.00-0.40 [facility] Work Phone: Comment on above: PATIENT WAS FASTINGP ERFORMED BY: CB [facility] Jdckzd6023 García RoadDublin [place] [id number] HgA1C , Office ([id number])Ordere d By: Warren Rios on 08-30-2017 Hemoglobin A1c/Hemoglobin.total mass fraction (Bld) 5.2 % Normal 4.6 - 7.1 Comprehensiv e Internal Medicine Work Phone: Lipid Panel ([id number])Ordered B y: Channel Sales Manager on 08-30-2017 Cholesterol in HDL mass conc 34 mg/dL Abnormal [facility] Work Phone: Comment on above: PATIENT WAS FASTINGP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 LabMarielaRobert Wood Johnson University HospitalKcwaib8059 [facility] [id number] Neutrophils/100 WBC (Bld) 83 % Normal [facility] Work Phone: Comment on above: PATIENT WAS FASTINGP ERFORMED BY: SASHA Maravilla Cvxszc7637 [facility] [id number] Platelets #/vol (Bld) 311 {x10E3/uL} Normal 150-379 [facility] Work Phone: Comment on above: PATIENT WAS FASTINGP ERFORMED BY: [facility]6370 [facility] [id number] RBC #/vol (Bld) 4.92 {x10E6/uL} Normal 4.14-5.80 Comp rehensive Internal Medicine Work Phone: Comment on above: PATIENT WAS FASTINGP ERFORMED BY: [facility]6370 [facility] [id number] WBC #/vol (Bld) 11.6 {x10E3/uL} Abnormal 3.4-10.8 Comp rehensive Internal Medicine Work Phone: Comment on above: PATIENT WAS FASTINGP ERFORMED BY: [facility] Ysiwen2878 [facility] [id number] LIPID PANEL ([id number])Ordered B y: Channel Sales Manager on 08-12-2016 Cholesterol in HDL mass conc 38 mg/dL Abnormal [facility] Work Phone: Comment on above: PATIENT WAS FASTINGP ERFORMED BY: [facility]6370 [facility] [id number]; ov 08/18/16 Cholesterol in LDL mass conc 94 mg/dL Normal 0-99 [facility] Work Phone: Comment on above: PATIENT WAS FASTINGP ERFORMED BY: Lab[facility]6370 [facility] [id number]; ov 08/18/16 Cholesterol in LDL/Cholesterol in HDL mass ratio 2.5 {ratio_units} Normal 0.0-3.6 [facility] Work Phone: Comment on above: LDL/HDL Ratio Men Wo men 1/2 Avg.Risk 1.0 1.5 Avg.Risk 3.6 3.2 2X Avg.Risk 6.2 5.0 3X Avg.Risk 8.0 6.1 PATIENT WAS FASTINGP ERFORMED BY: CB [facility] Vrbpec8702 García RoadDublin [place] [id number]; ov 08/18/16 Cholesterol in VLDL mass conc 16 mg/dL Normal 5-40 [facility] Work Phone: Comment on above: PATIENT WAS FASTINGP ERFORMED BY: CB [facility] Hlavbq4398 García RoadDublin [place] [id number]; ov 08/18/16 Cholesterol mass conc 148 mg/dL Normal 100-199 Com prehensive Internal Medicine Work Phone: Comment on above: PATIENT WAS FASTINGP ERFORMED BY: CB [facility] Shifyk6697 García RoadDublin [place] [id number]; ov 08/18/16 Triglyceride mass conc 79 mg/dL Normal 0-149 Co cox bransonensive Internal Medicine Work Phone: Comment on above: PATIENT WAS FASTINGP ERFORMED BY: CB [facility] Gdqttu5049 García RoadDublin [place] [id number]; ov 08/18/16 MICROALBUMINOrdered By: Syst em Cheese Processor on 08-12-2016 Albumin DL <= 20 mg/L mass conc (U) mg/dL Normal [facility] Work Phone: Comment on above: PATIENT WAS FASTINGP ERFORMED BY: CB [facility] Bzrett9786 García RoadDublin [place] [id number] Albumin/Creatinine mass ratio (U) <8.8 Normal 0.0-30.0 [facility] Work Phone: Comment on above: PATIENT WAS FASTINGP ERFORMED BY: CB [facility] Ljhqji3284 García RoadDublin [place] [id number] Creatinine mass conc (U) 33.9 mg/dL Normal [facility] Work Phone: Comment on above: PATIENT WAS FASTINGP ERFORMED BY: CB [facility] Spojcr9544 García RoadDublin [place] [id number] Metabolic Panel, Comprehensi ve ([id number])Ordered By: Channel Sales Manager on 08-12-2016 Albumin mass conc 4.4 g/dL Normal 3.5-4.8 Compreh ensive Internal Medicine Work Phone: Comment on above: PATIENT WAS FASTINGP ERFORMED BY: SASHA [facility] Onuzai5528 García RoadDublin [place] [id number] Albumin/Globulin mass ratio 1.8 {ratio} Normal 1.2-2.2 [facility] Work Phone: Comment on above: Please note refere nce interval change PATIENT WAS FASTINGP ERFORMED BY: SASHA [facility] Imkcic9373 García RoadDublin [place] [id number] ALP enzyme act/vol 102 [iU]/L Normal 39-117 Compre [facility] Internal Medicine Work Phone: Comment on above: PATIENT WAS FASTINGP ERFORMED BY: CB [facility] Gdvzty6637 García RoadDublin [place] [id number] ALT enzyme act/vol 21 [iU]/L Normal 0-44 Compre [facility] Internal Medicine Work Phone: Comment on above: PATIENT WAS FASTINGP ERFORMED BY: SASHA [facility] Haqami2823 García RoadDublin [place] [id number] AST enzyme act/vol 12 [iU]/L Normal 0-40 Compre [facility] Internal Medicine Work Phone: Comment on above: PATIENT WAS FASTINGP ERFORMED BY: CB [facility] Lnwyxm0986 García RoadDublin [place] [id number] Bilirubin mass conc 1.1 mg/dL Normal 0.0-1.2 Compr [facility] Internal Medicine Work Phone: Comment on above: PATIENT WAS FASTINGP ERFORMED BY: CB [facility] Iblkok7029 García RoadDublin [place] [id number] Calcium mass conc 9.9 mg/dL Normal 8.6-10.2 Compreh ensive Internal Medicine Work Phone: Comment on above: PATIENT WAS FASTINGP ERFORMED BY: CB [facility] Cwrrvt5856 García RoadDublin [place] [id number] Chloride molar conc 99 mmol/L Normal 96-106 Compr ehensive Internal Medicine Work Phone: Comment on above: PATIENT WAS FASTINGP ERFORMED BY: SASHA Taiwoshruti Qgarmx1223 [facility] [id number] CO2 molar conc 27 mmol/L Normal 18-29 Comprehens gary Internal Medicine Work Phone: Comment on above: PATIENT WAS FASTINGP ERFORMED BY: SASHA KiahDavid DuranZlmwqa9277 [facility] [id number] Creatinine mass conc 1.04 mg/dL Normal 0.76-1.27 Comp rehensive Internal Medicine Work Phone: Comment on above: PATIENT WAS FASTINGP ERFORMED BY: SASHA KiahDavid Ahbmqu1956 [facility] [id number] GFR/1.73 sq M predicted among blacks CKD-EPI vol rate/area (S/P/Bld) 84 mL/min/1.73 Normal [facility] Work Phone: Comment on above: PATIENT WAS FASTINGP ERFORMED BY: SASHA KiahDavid DuranPzrclv3087 [facility] [id number] GFR/1.73 sq M predicted among non-blacks CKD-EPI vol rate/area (S/P/Bld) 72 mL/min/1.73 Normal Comprehensiv e Internal Medicine Work Phone: Comment on above: PATIENT WAS FASTINGP ERFORMED BY: SASHA Duranlin6370 [facility] [id number] Globulin mass conc (S) 2.4 g/dL Normal 1.5-4.5 Co mprehensive Internal Medicine Work Phone: Comment on above: PATIENT WAS FASTINGP ERFORMED BY: SASHA KiahDavid DuranHepfdg7923 [facility] [id number] Glucose mass conc 127 mg/dL Abnormal 65-99 Compreh ensive Internal Medicine Work Phone: Comment on above: PATIENT WAS FASTINGP ERFORMED BY: SASHA KiahDavid DuranBehigg7440 [facility] [id number] Potassium molar conc 5.4 mmol/L Abnormal 3.5-5.2 Comp [facility] hospitalensive Internal [facility] Work Phone: Comment on above: PATIENT WAS FASTINGP ERFORMED BY: SASHA KiahMariela Cjllmr0975 [facility] [id number] Protein mass conc 6.8 g/dL Normal 6.0-8.5 Compreh ensive Internal Medicine Work Phone: Comment on above: PATIENT WAS FASTINGP ERFORMED BY: SASHA [facility]6370 [facility] [id number] Sodium molar conc 142 mmol/L Normal 134-144 Compreh ensive Internal Medicine Work Phone: Comment on above: PATIENT WAS FASTINGP ERFORMED BY: SASHA Duranlin6370 [facility] [id number] Urea nitrogen mass conc 21 mg/dL Normal 8-27 [facility] Work Phone: Comment on above: PATIENT WAS FASTINGP ERFORMED BY: SASHA [facility] Vgkjwy1172 [facility] [id number] Urea nitrogen/Creatinine mass ratio 20 mg/mg Normal 10-22 [facility] Work Phone: Comment on above: PATIENT WAS FASTINGP ERFORMED BY: SASHA Vargas6370 [facility] [id number] TSH ([id number])Ordered By: Syste m Cheese Processor on 08-12-2016 Thyrotropin Qn 0.830 {uIU/mL} Normal 0.450-4.500 Compr ensive Internal Medicine Work Phone: Comment on above: PATIENT WAS FASTINGP ERFORMED BY: SASHA [facility] Ccrqjt1375 [facility] [id number] URIC ACID BLOOD ([id number])Order ed By: Channel Sales Manager on 08-12-2016 Urate mass conc 8.0 mg/dL Normal 3.7-8.6 Comprehen [facility] Internal Medicine Work Phone: Comment on above: Therapeutic target f or gout patients: <6.0 PATIENT WAS FASTINGP ERFORMED BY: SASHA Maravillarp Qajyzn8121 García RoadDublin [place] [id number] URINALYSIS ([id number])Ordered By : Channel Sales Manager on 08-12-2016 Appearance Nom (U) Clear Normal Compre hensive Internal Medicine Work Phone: Comment on above: PATIENT WAS FASTINGP ERFORMED BY: SASHA [facility] Ydmaxl5713 García RoadDublin [place] [id number] Bilirubin Ql (U) Negative Normal Comprehe nsive Internal Medicine Work Phone: Comment on above: PATIENT WAS FASTINGP ERFORMED BY: SASHA [facility] Lkcvpo7210 García RoadDublin [place] [id number] Color Nom (U) Yellow Normal Comprehensi ve Internal Medicine Work Phone: Comment on above: PATIENT WAS FASTINGP ERFORMED BY: SASHA [facility] Lqwacb0298 García RoadDublin [place] [id number] Glucose Ql (U) Negative Normal Comprehens gary Internal Medicine Work Phone: Comment on above: PATIENT WAS FASTINGP ERFORMED BY: SASHA LabCoshruti DuranDfcplh1023 García RoadDublin [place] [id number] Hemoglobin Ql (U) Negative Normal Compreh ensive Internal Medicine Work Phone: Comment on above: PATIENT WAS FASTINGP ERFORMED BY: SASHA LabCoshruti DuranTiqxfq9606 García RoadDublin [place] [id number] Ketones Ql (U) Negative Normal Comprehens gary Internal Medicine Work Phone: Comment on above: PATIENT WAS FASTINGP ERFORMED BY: SASHA [facility] Jyhpxt0917 García RoadDublin [place] [id number] Leukocyte esterase Test strip Ql (U) Negative Normal [facility] Work Phone: Comment on above: PATIENT WAS FASTINGP ERFORMED BY: SASHA [facility] Ljoogd8438 García RoadDublin [place] [id number] Microscopic observation LM Nom (Urine sed) MICNIP Normal [facility] Work Phone: Comment on above: Microscopic not anika cated and not performed. PATIENT WAS FASTINGP ERFORMED BY: SASHA DupontCo Bisiwg3223 [address]ía RoadDublin [place] [id number] Nitrite Ql (U) Negative Normal Comprehens gary Internal Medicine Work Phone: Comment on above: PATIENT WAS FASTINGP ERFORMED BY: [facility] Uwxoel5290 García RoadDublin [place] [id number] pH (U) 7.0 [pH] Normal 5.0-7.5 [facility] Work Phone: Comment on above: PATIENT WAS FASTINGP ERFORMED BY: [facility] Pugzwj5601 [address]ía RoadDublin [place] [id number] Protein Ql (U) Negative Normal Comprehens gary Internal Medicine Work Phone: Comment on above: PATIENT WAS FASTINGP ERFORMED BY: [facility] Tmjzid5713 García RoadDublin [place] [id number] Specific gravity Relative Density (U) 1.008 1 Normal 1.005-1.030 Comprehensi ve Internal Medicine Work Phone: Comment on above: PATIENT WAS FASTINGP ERFORMED BY: [facility] Hifbyl1635 García RoadDublin [place] [id number] Urobilinogen Test strip mass conc (U) 1.0 mg/dL Normal 0.2-1.0 Comprehensiv e Internal Medicine Work Phone: Comment on above: PATIENT WAS FASTINGP ERFORMED BY: [facility] Wpnebd1234 García RoadDublin [place] [id number] VITAMIN B12 AND FOLATES (826 07)Ordered By: Channel Sales Manager on 08-12-2016 Cobalamin (Vitamin B12) mass conc 425 pg/mL Normal 211-946 [facility] Work Phone: Comment on above: PATIENT WAS FASTINGP ERFORMED BY: [facility] Uycjpp5284 García RoadDublin [place] [id number] Folate mass conc 6.7 ng/mL Normal Comprehe nsive Internal Medicine Work Phone: Comment on above: A serum folate stefan ntration of less than 3.1 ng/mL isconsidered to represent clinical deficiency. PATIENT WAS FASTINGP ERFORMED BY: [employer] Ugswoe8759 [facility] [id number] Culture, Body FluidOrdered B y: Channel Sales Manager on 07-26-2016 Bacteria identified Cx Nom (Body fld) See Note Normal [facility] Work Phone: Comment on above: List Antibiotics Las t 48 Hours? UNKList Antibiotics to be Started? UNKComments: LEFT ELBOWGram StainCentrifuged Specimen? Unable to centrifuge specimen due to insufficient volume. Gram Stain 1+ Red Blood Cells No organisms seen Body Fluid CultNO GROWTH IN 14 DAYS Cult, AnaerobicNo anaerobic bacteria isolated.; ADDENDA: another doc [facility] [address] [place], [place], [address] ; another doc Body Fluid Culture, SterileO rdered By: Channel Sales Manager on 05-04-2016 Bacteria identified Cx Nom (Body fld) NG72 Normal [facility] Work Phone: Comment on above: No growth in 56 - 72 hours. PATIENT NOT FASTINGP ERFORMED BY: Zero2IPO6370 [facility] [id number] Information: LEFT ELBOW SRC:EB Bacteria identified Cx Nom (Body fld) Final report Normal [facility] Work Phone: Comment on above: PATIENT NOT FASTINGP ERFORMED BY: [employer] Ndglwj2757 [facility] [id number] Information: LEFT ELBOW SRC:EB Test Code ChangeOrdered By: Channel Sales Manager on 05-04-2016 Test Code Change SPRCS Normal Comprehe nsive Internal Medicine Work Phone: Comment on above: Please note that the Microbiology test code was changed to reflectthe specimen source or transport received. PATIENT NOT FASTINGP ERFORMED BY: [employer] [facility] Bupvnc5781 [facility] [id number] Metabolic Panel, Comprehensi ve ([id number])Ordered By: Channel Sales Manager on 01-13-2016 Albumin mass conc 4.3 g/dL Normal 3.5-4.8 Compreh ensive Internal Medicine Work Phone: Comment on above: PATIENT NOT FASTINGP ERFORMED BY: CB [facility] Dxyvlt3988 García RoadDublin [place] [id number] Information: [id number] Albumin/Globulin mass ratio 1.7 {ratio} Normal 1.1-2.5 [facility] Internal Medicine Work Phone: Comment on above: PATIENT NOT FASTINGP ERFORMED BY: CB [facility] Ppnnhz9320 García RoadDublin [place] [id number] Information: [id number] ALP enzyme act/vol 57 [iU]/L Normal 39-117 [facility] Internal Medicine Work Phone: Comment on above: PATIENT NOT FASTINGP ERFORMED BY: CB [facility] Zodxgh1628 [address]ía RoadDublin [place] [id number] Information: [id number] ALT enzyme act/vol 16 [iU]/L Normal 0-44 [facility] Internal Medicine Work Phone: Comment on above: PATIENT NOT FASTINGP ERFORMED BY: CB [facility] Svufaw9293 [address]ía RoadDublin [place] [id number] Information: [id number] AST enzyme act/vol 15 [iU]/L Normal 0-40 [facility] Internal Medicine Work Phone: Comment on above: PATIENT NOT FASTINGP ERFORMED BY: CB [facility] Emmvsx4245 [address] [facility] Centerblin [place] [id number] Information: [id number] Bilirubin mass conc 1.0 mg/dL Normal 0.0-1.2 [facility] Internal Medicine Work Phone: Comment on above: PATIENT NOT FASTINGP ERFORMED BY: CB [facility] Hjgnym3239 [address]ía RoadDublin [place] [id number] Information: 996147,[id number] Calcium mass conc 9.5 mg/dL Normal 8.6-10.2 [facility] Internal Medicine Work Phone: Comment on above: PATIENT NOT FASTINGP ERFORMED BY: CB [facility] Ofojpp2359 García RoadRandolph Health [id number] Information: [id number] Chloride molar conc 99 mmol/L Normal 97-108 Compr ensive Internal Medicine Work Phone: Comment on above: PATIENT NOT FASTINGP ERFORMED BY: SASHA LabCoshruti VagrasPthysb2608 García [facility] [id number] Information: [id number] CO2 molar conc 25 mmol/L Normal 18-29 Comprehens gary Internal Medicine Work Phone: Comment on above: PATIENT NOT FASTINGP ERFORMED BY: SASHA [facility] Unqekg8571 [facility] [id number] Information: [id number] Creatinine mass conc 0.99 mg/dL Normal 0.76-1.27 Comp [facility] Work Phone: Comment on above: PATIENT NOT FASTINGP ERFORMED BY: [facility] Rtqwft7345 [facility] [id number] Information: [id number] GFR/1.73 sq M predicted among blacks CKD-EPI vol rate/area (S/P/Bld) 89 mL/min/1.73 Normal [facility] Work Phone: Comment on above: PATIENT NOT FASTINGP ERFORMED BY: SASHA [facility] Ismudw8138 [facility] [id number] Information: [id number] GFR/1.73 sq M predicted among non-blacks CKD-EPI vol rate/area (S/P/Bld) 77 mL/min/1.73 Normal Comprehensiv e Internal Medicine Work Phone: Comment on above: PATIENT NOT FASTINGP ERFORMED BY: CB [facility] Qylpry0509 [facility] [id number] Information: [id number] Globulin mass conc (S) 2.6 g/dL Normal 1.5-4.5 Co cox bransonensive Internal Medicine Work Phone: Comment on above: PATIENT NOT FASTINGP ERFORMED BY: CB [facility] Qxptnh5189 [facility] [id number] Information: [id number],[id number] Glucose mass conc 100 mg/dL Abnormal 65-99 Compreh ensive Internal Medicine Work Phone: Comment on above: PATIENT NOT FASTINGP ERFORMED BY: SASHA Maravilla Evhata4273 [facility] [id number] Information: [id number] Potassium molar conc 4.4 mmol/L Normal 3.5-5.2 Comp rehensive Internal Medicine Work Phone: Comment on above: PATIENT NOT FASTINGP ERFORMED BY: [place] 3132470 [facility] [id number] Information: [id number] Protein mass conc 6.9 g/dL Normal 6.0-8.5 Compreh ensive Internal Medicine Work Phone: Comment on above: PATIENT NOT FASTINGP ERFORMED BY: [place] 3132470 [facility] [id number] Information: [id number] Sodium molar conc 143 mmol/L Normal 134-144 Compreh ensive Internal Medicine Work Phone: Comment on above: PATIENT NOT FASTINGP ERFORMED BY: TaiwoRobert Wood Johnson University HospitalLugeeg0485 [facility] [id number] Information: [id number] Urea nitrogen mass conc 16 mg/dL Normal 8-27 [facility] Work Phone: Comment on above: PATIENT NOT FASTINGP ERFORMED BY: [place] 3132470 [facility] [id number] Information: [id number] Urea nitrogen/Creatinine mass ratio 16 mg/mg Normal 10-22 [facility] Work Phone: Comment on above: PATIENT NOT FASTINGP ERFORMED BY: [place] 3132470 [facility] [id number] Information: [id number] RHEUMATOID FACTOR-QUAL (8643 0)Ordered By: Channel Sales Manager on 01-13-2016 Rheumatoid factor Qn 11.1 {IU/mL} Normal 0.0-13.9 Co cox bransonensive Internal Medicine Work Phone: Comment on above: PATIENT NOT FASTINGP ERFORMED BY: SASHA [facility] Jqzwmt4657 [facility] [id number] TSH ([id number])Ordered By: Lili patterson Cheese Processor on 01-13-2016 Thyrotropin Qn 1.560 {uIU/mL} Normal 0.450-4.500 [facility] Internal Medicine Work Phone: Comment on above: PATIENT NOT FASTINGP ERFORMED BY: SASHA [facility] Xgzvja7878 [facility] [id number] URIC ACID BLOOD ([id number])Order ed By: Channel Sales Manager on 01-13-2016 Urate mass conc 9.3 mg/dL Abnormal 3.7-8.6 [facility] Internal Medicine Work Phone: Comment on above: Therapeutic target f or gout patients: <6.0 PATIENT NOT FASTINGP ERFORMED BY: SASHA [facility] Slqubr2396 [facility] [id number] Lipid ProfileOrdered By: Kodi grover Cheese Processor on 10-06-2015 Cholesterol in HDL mass conc 38 mg/dL Abnormal Comprehensive [facility] Medicine Work Phone: Comment on above: Reference Range HDL <40 mg/dL Low HDL Cholesterol HDL >or= 60 mg/dL High HDL Cholesterol [facility] [address] [place], [place], [id number] Cholesterol in LDL mass conc 46 mg/dL Normal 0-130 [facility] Medicine Work Phone: Comment on above: [facility] [address] [place], [address] Cholesterol in VLDL mass conc 43 mg/dL Abnormal 5-40 [facility] Medicine Work Phone: Comment on above: [facility] [address] [place], [place], [address] Cholesterol mass conc 127 mg/dL Normal Com prehensive Internal Medicine Work Phone: Comment on above: <200 mg/dL Desirable 200-240 mg/dL Borderline >240 mg/dL High Risk [facility] [address] [place], [place], [address] Triglyceride mass conc 214 mg/dL Abnormal [facility] Internal Medicine Work Phone: Comment on above: Serum Triglycerides Reference Interval Normal <150 mg/dL Borderline high 150 - 199 mg/dL High 200 - 499 mg/dL Very High > or = 500 mg/dL [facility] [address] [place], [place], [address] Liver ProfileOrdered By: Kodi tem Cheese Processor on 10-06-2015 Albumin mass conc 3.8 g/dL Normal 3.4-5.0 [facility] Internal Medicine Work Phone: Comment on above: [facility] [address] [place], [address] ALP enzyme act/vol 57 U/L Normal 50-136 [facility] Internal Medicine Work Phone: Comment on above: [facility] [address] [place], [address] ALT enzyme act/vol 28 U/L Normal 12-78 [facility] Internal Medicine Work Phone: Comment on above: [facility] [address] [place], [address] AST enzyme act/vol 16 U/L Normal 15-37 [facility] Internal Medicine Work Phone: Comment on above: [facility] [address] [place], [address] Bilirubin mass conc 1.60 mg/dL Abnormal 0.20-1.00 [facility] Internal Medicine Work Phone: Comment on above: [facility] [address] [place], [place], [address] Bilirubin.direct mass conc 0.22 mg/dL Normal 0.00-0.30 [facility] Work Phone: Comment on above: [facility] [address] [place], [place], [address] Globulin mass conc (S) 3.1 g/dL Normal 2.3-3.5 Co mprehensive Internal Medicine Work Phone: Comment on above: [facility] [address] [place], [address] Protein mass conc 6.9 g/dL Normal 6.4-8.2 Compreh ensive Internal Medicine Work Phone: Comment on above: [facility] [address] [place], [place], [phone] CBC with auto diff (06403)Or dered By: Channel Sales Manager on 09-10-2015 Basophils #/vol (Bld) 0.0 {x10E3/uL} Normal 0.0-0.2 [facility] Work Phone: Comment on above: PATIENT WAS FASTINGP ERFORMED BY: [facility] Lnitpd6741 [facility] [id number] Information: [id number]; fu 09-12-15 with [facility] Basophils/100 WBC (Bld) 0 % Normal [facility] Work Phone: Comment on above: PATIENT WAS FASTINGP ERFORMED BY: CB [facility] Asoeoc6863 [facility] [id number] Information: [id number]; fu 09-12-15 with [facility] Eosinophils #/vol (Bld) 0.2 {x10E3/uL} Normal 0.0-0.4 [facility] Work Phone: Comment on above: PATIENT WAS FASTINGP ERFORMED BY: TechTurn [facility] Koivyw0336 [facility] [id number] Information: [id number]; fu 09-12-15 with [facility] Eosinophils/100 WBC (Bld) 2 % Normal [facility] Work Phone: Comment on above: PATIENT WAS FASTINGP ERFORMED BY: [facility] Jqnzpb9556 García [facility] [id number] Information: [id number]; 09-12-15 with [facility] Erythrocyte distribution width Ratio (RBC) 13.1 % Normal 12.3-15.4 [facility] Work Phone: Comment on above: PATIENT WAS FASTINGP ERFORMED BY: [facility] Hxevva5920 García [facility] [id number] Information: [id number]; 09-12-15 with [facility] Hematocrit Volume Fraction (Bld) 41.9 % Normal 37.5-51.0 [facility] Work Phone: Comment on above: PATIENT WAS FASTINGP ERFORMED BY: SASHA [facility] Hlrftf3084 [facility] [id number] Information: [id number]; 09-12-15 with [facility] Hemoglobin mass conc (Bld) 14.3 g/dL Normal 12.6-17.7 [facility] Work Phone: Comment on above: PATIENT WAS FASTINGP ERFORMED BY: [facility] Widoxr0379 [facility] [id number] Information: [id number]; 09-12-15 with [facility] Immature granulocytes #/vol (Bld) 0.0 {x10E3/uL} Normal 0.0-0.1 [facility] Work Phone: Comment on above: PATIENT WAS FASTINGP ERFORMED BY: [facility] Hixime6688 [facility] [id number] Information: [id number]; 09-12-15 with [facility] Immature granulocytes/100 WBC (Bld) 0 % Normal [facility] Work Phone: Comment on above: PATIENT WAS FASTINGP ERFORMED BY: [facility] Xhallh4565 García [facility] [id number] Information: [id number]; fu 09-12-15 with [facility] Lymphocytes #/vol (Bld) 2.3 {x10E3/uL} Normal 0.7-3.1 [facility] Work Phone: Comment on above: PATIENT WAS FASTINGP ERFORMED BY: [address] [id number] Information: [id number]; 09-12-15 with [facility] Lymphocytes/100 WBC (Bld) 23 % Normal [facility] Work Phone: Comment on above: PATIENT WAS FASTINGP ERFORMED BY: [address] [id number] Information: [id number]; 09-12-15 with [facility] MCH Entitic mass (RBC) 31.4 pg Normal 26.6-33.0 [facility] Internal Medicine Work Phone: Comment on above: PATIENT WAS FASTINGP ERFORMED BY: [address] [id number] Information: [id number]; 09-12-15 with [facility] MCHC mass conc (RBC) 34.1 g/dL Normal 31.5-35.7 [facility] Internal Medicine Work Phone: Comment on above: PATIENT WAS FASTINGP ERFORMED BY: [address] [id number] Information: [id number]; 09-12-15 with [facility] MCV Entitic volume (RBC) 92 fL Normal 79-97 [facility] Internal Medicine Work Phone: Comment on above: PATIENT WAS FASTINGP ERFORMED BY: [place] 3132470 [facility] [id number] Information: [id number]; 09-12-15 with [facility] Monocytes #/vol (Bld) 0.7 {x10E3/uL} Normal 0.1-0.9 [facility] Work Phone: Comment on above: PATIENT WAS FASTINGP ERFORMED BY: SASHA [facility] Bjdtei5644 García [facility] [id number] Information: [id number]; fu 09-12-15 with [facility] Monocytes/100 WBC (Bld) 7 % Normal [facility] Work Phone: Comment on above: PATIENT WAS FASTINGP ERFORMED BY: [facility] Knamrf4374 García [facility] [id number] Information: [id number]; fu 09-12-15 with [facility] Neutrophils #/vol (Bld) 6.6 {x10E3/uL} Normal 1.4-7.0 [facility] Work Phone: Comment on above: PATIENT WAS FASTINGP ERFORMED BY: SAHSA [facility] Aqclvd2655 [facility] [id number] Information: [id number]; fu 09-12-15 with [facility] Neutrophils/100 WBC (Bld) 68 % Normal [facility] Work Phone: Comment on above: PATIENT WAS FASTINGP ERFORMED BY: [facility] CenterOgsqna9017 [facility] [id number] Information: [id number]; 09-12-15 with [facility] Platelets #/vol (Bld) 286 {x10E3/uL} Normal 150-379 [facility] Work Phone: Comment on above: PATIENT WAS FASTINGP ERFORMED BY: [facility] Rmozkd5218 [facility] [id number] Information: [id number]; 09-12-15 with [facility] RBC #/vol (Bld) 4.55 {x10E6/uL} Normal 4.14-5.80 [facility] Internal Medicine Work Phone: Comment on above: PATIENT WAS FASTINGP ERFORMED BY: CB [facility] Eliuqu6386 García [facility] [id number] Information: [id number]; fu 09-12-15 with [facility] WBC #/vol (Bld) 9.8 {x10E3/uL} Normal 3.4-10.8 [facility] ehensive Internal Medicine Work Phone: Comment on above: PATIENT WAS FASTINGP ERFORMED BY: SASHA Vargas6370 [facility] [id number] Information: [id number]; fu 09-12-15 with [facility] LIPID PANEL ([id number])Ordered B y: Channel Sales Manager on 09-10-2015 Cholesterol in HDL mass conc 41 mg/dL Normal Comprehensive [facility] Medicine Work Phone: Comment on above: According to ATP-III Guidelines, HDL-C >59 mg/dL is considered anegative risk factor for CHD. PATIENT WAS FASTINGP ERFORMED BY: SASHA Vargas6370 [facility] [id number] Cholesterol in LDL mass conc 75 mg/dL Normal 0-99 [facility] Work Phone: Comment on above: PATIENT WAS FASTINGP ERFORMED BY: SASHA Vargas6370 [facility] [id number] Cholesterol in LDL/Cholesterol in HDL mass ratio 1.8 {ratio_units} Normal 0.0-3.6 [facility] Work Phone: Comment on above: LDL/HDL Ratio Men Wo men 1/2 Avg.Risk 1.0 1.5 Avg.Risk 3.6 3.2 2X Avg.Risk 6.2 5.0 3X Avg.Risk 8.0 6.1 PATIENT WAS FASTINGP ERFORMED BY: SASHA Vargas6370 [facility] [id number] Cholesterol in VLDL mass conc 16 mg/dL Normal 5-40 [facility] Work Phone: Comment on above: PATIENT WAS FASTINGP ERFORMED BY: SASHA Vargas6370 [facility] [id number] Cholesterol mass conc 132 mg/dL Normal 100-199 [facility] prehensive Internal Medicine Work Phone: Comment on above: PATIENT WAS FASTINGP ERFORMED BY: SASHA Vargas6370 [facility] [id number] Triglyceride mass conc 79 mg/dL Normal 0-149 [facility] Internal Medicine Work Phone: Comment on above: PATIENT WAS FASTINGP ERFORMED BY: SASHA LabDavid DuranKvnacw0680 García [facility] [place] [id number] METABOLIC PANEL, COMPREHENSI VE ([id number])Ordered By: Channel Sales Manager on 09-10-2015 Albumin mass conc 4.2 g/dL Normal 3.6-4.8 [facility] Internal Medicine Work Phone: Comment on above: PATIENT WAS FASTINGP ERFORMED BY: SASHA LabCoshruti DuranEwvfga8777 García [facility] [id number] Albumin/Globulin mass ratio 1.7 {ratio} Normal 1.1-2.5 [facility] Internal Medicine Work Phone: Comment on above: PATIENT WAS FASTINGP ERFORMED BY: SASHA LabDavid DuranXehcah8525 García [facility] [id number] ALP enzyme act/vol 64 [iU]/L Normal 39-117 [facility] Internal Medicine Work Phone: Comment on above: PATIENT WAS FASTINGP ERFORMED BY: SASHA LabDavid DuranZkhlfg5371 García [facility] [place] [id number] ALT enzyme act/vol 21 [iU]/L Normal 0-44 [facility] Internal Medicine Work Phone: Comment on above: PATIENT WAS FASTINGP ERFORMED BY: SASHA [facility] Imrbxf9387 García [facility] [id number] AST enzyme act/vol 18 [iU]/L Normal 0-40 [facility] Internal Medicine Work Phone: Comment on above: PATIENT WAS FASTINGP ERFORMED BY: SASHA [facility] Yjxgce3185 García [facility] [place] [id number] Bilirubin mass conc 0.8 mg/dL Normal 0.0-1.2 [facility] Internal Medicine Work Phone: Comment on above: PATIENT WAS FASTINGP ERFORMED BY: SASHA [facility] Usobzj7310 García [facility] [id number] Calcium mass conc 9.4 mg/dL Normal 8.6-10.2 Compreh ensive Internal Medicine Work Phone: Comment on above: PATIENT WAS FASTINGP ERFORMED BY: SASHA LabCoshruti DuranJdqgaq8599 García RoadDublin [place] [id number] Chloride molar conc 99 mmol/L Normal 97-108 Compr ehensive Internal Medicine Work Phone: Comment on above: PATIENT WAS FASTINGP ERFORMED BY: SASHA [facility] Oqqpvb3403 García Roadblin [place] [id number] CO2 molar conc 23 mmol/L Normal 18-29 Comprehens gary Internal Medicine Work Phone: Comment on above: PATIENT WAS FASTINGP ERFORMED BY: SASHA LabCoshruti DuranWqdqax4086 García Roadblin [place] [id number] Creatinine mass conc 1.19 mg/dL Normal 0.76-1.27 Comp rehensive Internal Medicine Work Phone: Comment on above: PATIENT WAS FASTINGP ERFORMED BY: SASHA [facility] Enmqgx6121 García [facility] [place] [id number] GFR/1.73 sq M predicted among blacks CKD-EPI vol rate/area (S/P/Bld) 72 mL/min/1.73 Normal [facility] Work Phone: Comment on above: PATIENT WAS FASTINGP ERFORMED BY: SASHA [facility] Egiicd6424 García RoadUnc Health Pardeein [place] [id number] GFR/1.73 sq M predicted among non-blacks CKD-EPI vol rate/area (S/P/Bld) 62 mL/min/1.73 Normal Comprehensiv e Internal Medicine Work Phone: Comment on above: PATIENT WAS FASTINGP ERFORMED BY: SASHA [facility] Jfwbms2027 García RoadDublin [place] [id number] Globulin mass conc (S) 2.5 g/dL Normal 1.5-4.5 Co mprehensive Internal Medicine Work Phone: Comment on above: PATIENT WAS FASTINGP ERFORMED BY: SASHA [facility] Npqusd3688 Garc[facility] RoadRandolph Health [id number] Glucose mass conc 99 mg/dL Normal 65-99 Compreh ensive Internal Medicine Work Phone: Comment on above: PATIENT WAS FASTINGP ERFORMED BY: SASHA Vargas6370 [facility] [id number] Potassium molar conc 4.6 mmol/L Normal 3.5-5.2 Comp rehensive Internal Medicine Work Phone: Comment on above: PATIENT WAS FASTINGP ERFORMED BY: SASHA Maravilla Jvukiz8688 [facility] [id number] Protein mass conc 6.7 g/dL Normal 6.0-8.5 Compreh ensive Internal Medicine Work Phone: Comment on above: PATIENT WAS FASTINGP ERFORMED BY: SASHA Taiwo Opdwqi0532 [facility] [id number] Sodium molar conc 140 mmol/L Normal 134-144 Compreh ensive Internal Medicine Work Phone: Comment on above: PATIENT WAS FASTINGP ERFORMED BY: [facility]6370 [facility] [id number] Urea nitrogen mass conc 22 mg/dL Normal 8-27 [facility] Work Phone: Comment on above: PATIENT WAS FASTINGP ERFORMED BY: SASHA Maravilla Daqjgw3104 [facility] [id number] Urea nitrogen/Creatinine mass ratio 18 mg/mg Normal 10-22 [facility] Work Phone: Comment on above: PATIENT WAS FASTINGP ERFORMED BY: SASHA [facility]Asp[facility]6370 [facility] [id number] Microscopic ExaminationOrder ed By: Channel Sales Manager on 09-10-2015 Bacteria LM.HPF #/area (Urine sed) None seen Normal [facility] Work Phone: Comment on above: PATIENT WAS FASTINGP ERFORMED BY: [facility]6370 [facility] [id number] Epithelial cells LM.HPF #/area (Urine sed) None seen Normal 0 - 10 [facility] Work Phone: Comment on above: PATIENT WAS FASTINGP ERFORMED BY: CB [facility] Yccrim5601 García RoadDublin [place] [id number] Mucus Ql (Urine sed) Present Normal Comp rehensive Internal Medicine Work Phone: Comment on above: PATIENT WAS FASTINGP ERFORMED BY: CB [facility] Bfxxsv4403 García RoadDublin [place] [id number] RBC LM.HPF #/area (Urine sed) 0-2 Normal 0 - 2 [facility] Work Phone: Comment on above: PATIENT WAS FASTINGP ERFORMED BY: CB [facility] Iirjsn9321 García RoadDublin [place] [id number] WBC LM.HPF #/area (Urine sed) 0-5 Normal 0 - 5 [facility] Work Phone: Comment on above: PATIENT WAS FASTINGP ERFORMED BY: CB [facility] Nzblmf7532 García RoadDublin [place] [id number] PSA (PROSTATE SPECIFIC ANTIG EN) (V76.44)Ordered By: Channel Sales Manager on 09-10-2015 Prostate specific Ag mass conc 1.3 ng/mL Normal 0.0-4.0 [facility] Work Phone: Comment on above: Luis ECLIA methodol ogy. .According to the [place] [employer], Serum PSA shoulddecrease and remain at undetectable levels after radicalprostatectomy. The AUA defines biochemical recurrence as an initialPSA value 0.2 ng/mL or greater followed by a subsequent confirmatoryPSA value 0.2 ng/mL or greater.Values obtained with different assay methods or kits cannot be usedinterchangeably. Results cannot be interpreted as absolute evidenceof the presence or absence of malignant disease. PATIENT WAS FASTINGP ERFORMED BY: CB [facility] Vngzvu8533 García RoadDublin [place] [id number] URINALYSIS, W/ MICRO ([id number]) Ordered By: Channel Sales Manager on 09-10-2015 Appearance Nom (U) Cloudy Abnormal Compre [facility] Internal Medicine Work Phone: Comment on above: PATIENT WAS FASTINGP ERFORMED BY: CB [facility] Aggijc9056 García RoadDublin [place] [id number] Bilirubin Ql (U) Negative Normal Comprehe nsive Internal Medicine Work Phone: Comment on above: PATIENT WAS FASTINGP ERFORMED BY: SASHA LabDavid DuranPfsfvv6440 García RoadDublin [place] [id number] Color Nom (U) Yellow Normal Comprehensi ve Internal Medicine Work Phone: Comment on above: PATIENT WAS FASTINGP ERFORMED BY: SASHA LabDavid DuranMxzxev4862 García RoadDublin [place] [id number] Glucose Ql (U) Negative Normal Comprehens gary Internal Medicine Work Phone: Comment on above: PATIENT WAS FASTINGP ERFORMED BY: SASHA LabDavid DuranSrrosq1842 García RoadDublin [place] [id number] Hemoglobin Ql (U) Negative Normal Compreh ensive Internal Medicine Work Phone: Comment on above: PATIENT WAS FASTINGP ERFORMED BY: SASHA Duranlin6370 García RoadDublin [place] [id number] Ketones Ql (U) Negative Normal Comprehens gary Internal Medicine Work Phone: Comment on above: PATIENT WAS FASTINGP ERFORMED BY: SASHA Duranlin6370 [address]ía RoadDublin [place] [id number] Leukocyte esterase Test strip Ql (U) Negative Normal [facility] Work Phone: Comment on above: PATIENT WAS FASTINGP ERFORMED BY: SASHA Duranlin6370 [address]ía RoadDublin [place] [id number] Microscopic observation LM Nom (Urine sed) MICRON Normal [facility] Work Phone: Comment on above: Microscopic follows if indicated. PATIENT WAS FASTINGP ERFORMED BY: SASHA [facility] Hxnkmp8487 García RoadDublin [place] [id number] Microscopic observation LM Nom (Urine sed) See below: Normal [facility] Work Phone: Comment on above: Microscopic was anika cated and was performed. PATIENT WAS FASTINGP ERFORMED BY: SASHA LabCoshruti Yhhgfl6077 García RoadDublin [place] [id number] Nitrite Ql (U) Negative Normal Comprehens gary Internal Medicine Work Phone: Comment on above: PATIENT WAS FASTINGP ERFORMED BY: SASHA LabCoshruti Mnjkoy3433 [facility] [id number] pH (U) 6.0 [pH] Normal 5.0-7.5 [facility] Work Phone: Comment on above: PATIENT WAS FASTINGP ERFORMED BY: SASHA [facility] Vkplkg1050 [facility] [id number] Protein Ql (U) Negative Normal Comprehens gary Internal Medicine Work Phone: Comment on above: PATIENT WAS FASTINGP ERFORMED BY: SASHA [facility] Bazabm4711 [facility] [id number] Specific gravity Relative Density (U) 1.017 1 Normal 1.005-1.030 Comprehensi ve Internal Medicine Work Phone: Comment on above: PATIENT WAS FASTINGP ERFORMED BY: SASHA [facility] Ywjiha0240 [facility] [id number] Urobilinogen Test strip mass conc (U) 1.0 mg/dL Normal 0.2-1.0 Comprehensiv e Internal Medicine Work Phone: Comment on above: PATIENT WAS FASTINGP ERFORMED BY: SASHA [facility] Zrdmij7891 [facility] [id number] Blood Glucose , Office (8296 2)Ordered By: Britney Warner on 09-05-2015 Glucose Glucometer molar conc (BldC) 111 1 Normal [facility] Work Phone: Comment on above: 111 CBC, Platelets & Auto Diff ( 76076)Ordered By: Channel Sales Manager on 09-05-2015 Basophils #/vol (Bld) 0.0 {x10E3/uL} Normal 0.0-0.2 [facility] Work Phone: Comment on above: PATIENT NOT FASTINGP ERFORMED BY: SASHA [facility] Zvxnsn4338 [facility] [id number] Information: [id number] Basophils/100 WBC (Bld) 0 % Normal [facility] Work Phone: Comment on above: PATIENT NOT FASTINGP ERFORMED BY: SASHA DupontCo Qnqgvv2072 [facility] [id number] Information: [id number],[id number] Eosinophils #/vol (Bld) 0.0 {x10E3/uL} Normal 0.0-0.4 [facility] Work Phone: Comment on above: PATIENT NOT FASTINGP ERFORMED BY: SASHA [place]ontP[place] [id number] [facility] [id number] Information: [id number],[id number] Eosinophils/100 WBC (Bld) 0 % Normal [facility] Work Phone: Comment on above: PATIENT NOT FASTINGP ERFORMED BY: SASHA [facility] X[address]ysd[address] [id number] Information: [id number] Erythrocyte distribution width Ratio (RBC) 13.3 % Normal 12.3-15.4 [facility] Work Phone: Comment on above: PATIENT NOT FASTINGP ERFORMED BY: [address] [id number] Information: [id number] Hematocrit Volume Fraction (Bld) 47.1 % Normal 37.5-51.0 [facility] Work Phone: Comment on above: PATIENT NOT FASTINGP ERFORMED BY: [address] [id number] Information: 306359,[id number] Hemoglobin mass conc (Bld) 15.5 g/dL Normal 12.6-17.7 [facility] Work Phone: Comment on above: PATIENT NOT FASTINGP ERFORMED BY: SASHA [facility]ontAsp[facility]tonagon Hospital6370 [facility] [id number] Information: 102442,[id number] Immature granulocytes #/vol (Bld) 0.0 {x10E3/uL} Normal 0.0-0.1 [facility] Work Phone: Comment on above: PATIENT NOT FASTINGP ERFORMED BY: SASHA Maravilla Jnmedd6400 [facility] [id number] Information: 863632,[id number] Immature granulocytes/100 WBC (Bld) 0 % Normal [facility] Work Phone: Comment on above: PATIENT NOT FASTINGP ERFORMED BY: LabCoJohn V[place] 9722070 [facility] [id number] Information: [id number] Lymphocytes #/vol (Bld) 1.3 {x10E3/uL} Normal 0.7-3.1 [facility] Work Phone: Comment on above: PATIENT NOT FASTINGP ERFORMED BY: SASHA Duranlin6370 [facility] [id number] Information: 757142,[id number] Lymphocytes/100 WBC (Bld) 11 % Normal [facility] Work Phone: Comment on above: PATIENT NOT FASTINGP ERFORMED BY: SASHA [facility] Nofjgf1847 [facility] [id number] Information: [id number] MCH Entitic mass (RBC) 30.7 pg Normal 26.6-33.0 [facility] Internal Medicine Work Phone: Comment on above: PATIENT NOT FASTINGP ERFORMED BY: [place] 3132470 [facility] [id number] Information: 230024,[id number] MCHC mass conc (RBC) 32.9 g/dL Normal 31.5-35.7 [facility] Internal Medicine Work Phone: Comment on above: PATIENT NOT FASTINGP ERFORMED BY: SASHA LabCoRobert Wood Johnson University HospitalLdyyue6563 [facility] [id number] Information: 549778,[id number] MCV Entitic volume (RBC) 93 fL Normal 79-97 [facility] Work Phone: Comment on above: PATIENT NOT FASTINGP ERFORMED BY: LabCoJohn [place] 9722070 [facility] [id number] Information: [id number],[id number] Monocytes #/vol (Bld) 0.3 {x10E3/uL} Normal 0.1-0.9 [facility] Work Phone: Comment on above: PATIENT NOT FASTINGP ERFORMED BY: SASHA LabCoRobert Wood Johnson University HospitalUfgthm8256 [facility] [id number] Information: [id number],[id number] Monocytes/100 WBC (Bld) 2 % Normal [facility] Work Phone: Comment on above: PATIENT NOT FASTINGP ERFORMED BY: [facility]6370 [facility] [id number] Information: [id number] Neutrophils #/vol (Bld) 12.4 {x10E3/uL} Abnormal 1.4-7.0 [facility] Work Phone: Comment on above: PATIENT NOT FASTINGP ERFORMED BY: LabAspirus [facility]tonagon Hospital6370 [facility] [id number] Information: 275486,S73620 Neutrophils/100 WBC (Bld) 87 % Normal [facility] Work Phone: Comment on above: PATIENT NOT FASTINGP ERFORMED BY: LabCoRobert Wood Johnson University HospitalEsijit0119 [facility] [id number] Information: [id number] Platelets #/vol (Bld) 331 {x10E3/uL} Normal 150-379 [facility] Work Phone: Comment on above: PATIENT NOT FASTINGP ERFORMED BY: LabCoRobert Wood Johnson University HospitalMhmkwj5501 [facility] [id number] Information: [id number] RBC #/vol (Bld) 5.05 {x10E6/uL} Normal 4.14-5.80 Comp rehensive Internal Medicine Work Phone: Comment on above: PATIENT NOT FASTINGP ERFORMED BY: LabCoRobert Wood Johnson University HospitalIincbm1865 [facility] [id number] Information: 111581,[id number] WBC #/vol (Bld) 14.2 {x10E3/uL} Abnormal 3.4-10.8 Comp rehensive Internal Medicine Work Phone: Comment on above: PATIENT NOT FASTINGP ERFORMED BY: SASHA [facility] Ijukcg5094 García [facility]in [place] [id number] Information: [id number],[id number] SPEP (57642)Ordered By: Syst em Cheese Processor on 09-05-2015 Albumin mass conc 4.2 g/dL Normal 3.2-5.6 Compreh ensive Internal Medicine Work Phone: Comment on above: PATIENT NOT FASTINGP ERFORMED BY: [facility] Aecrcp3766 García [facility] [id number] Albumin/Globulin mass ratio 1.4 {ratio} Normal 0.7-2.0 [facility] Work Phone: Comment on above: PATIENT NOT FASTINGP ERFORMED BY: [facility] Mgxyfp0362 García [facility] [id number] Alpha 1 globulin Elph mass conc 0.2 g/dL Normal 0.1-0.4 [facility] Work Phone: Comment on above: PATIENT NOT FASTINGP ERFORMED BY: [facility] Cqiowv3379 García [facility] [id number] Alpha 2 globulin Elph mass conc 0.8 g/dL Normal 0.4-1.2 [facility] Work Phone: Comment on above: PATIENT NOT FASTINGP ERFORMED BY: [facility] Yoactt7054 García [facility] [place] [id number] Beta globulin Elph mass conc 0.9 g/dL Normal 0.6-1.3 [facility] Work Phone: Comment on above: PATIENT NOT FASTINGP ERFORMED BY: [facility] Qiybit7809 García [facility] [id number] Gamma globulin Elph mass conc 0.9 g/dL Normal 0.5-1.6 [facility] Work Phone: Comment on above: PATIENT NOT FASTINGP ERFORMED BY: CB [facility] Ifzdif4859 García RoadDublin [place] [id number] Globulin mass conc (S) 2.9 g/dL Normal 2.0-4.5 Co mprehensive [facility] Medicine Work Phone: Comment on above: PATIENT NOT FASTINGP ERFORMED BY: CB [facility] Crbgah8506 García RoadDublin [place] [id number] Protein mass conc 7.1 g/dL Normal 6.0-8.5 Compreh ensive Internal Medicine Work Phone: Comment on above: PATIENT NOT FASTINGP ERFORMED BY: CB [facility] Urivvl2091 García RoadDublin [place] [id number] Protein.monoclonal Elph mass conc Not Observed Normal [facility] Work Phone: Comment on above: PATIENT NOT FASTINGP ERFORMED BY: CB [facility] Ttbooh1365 García RoadDublin [place] [id number] Sed Rate Erythrocyte (80958) Ordered By: Channel Sales Manager on 09-05-2015 ESR Velocity (Bld) 3 mm/h Normal 0-30 [facility]pre [facility] Internal [facility] Work Phone: Comment on above: PATIENT NOT FASTINGP ERFORMED BY: CB [facility] Lkfkgq5037 García RoadDublin [place] [id number] UPEP (01089)Ordered By: Syst em Cheese Processor on 09-05-2015 Albumin/Protein.total Elph mass fraction (U) 31.4 % Normal Comprehen sive Internal Medicine Work Phone: Comment on above: PATIENT NOT FASTINGP ERFORMED BY: CB [facility] Jyvxqj9300 García RoadDublin [place] [id number] Alpha 1 globulin/Protein.total Elph mass fraction (U) 8.0 % Normal Comprehen sive Internal Medicine Work Phone: Comment on above: PATIENT NOT FASTINGP ERFORMED BY: CB [facility] Ajkvxv0492 García RoadDublin [place] [id number] Alpha 2 globulin/Protein.total Elph mass fraction (U) 19.8 % Normal Comprehen sive Internal Medicine Work Phone: Comment on above: PATIENT NOT FASTINGP ERFORMED BY: CB [facility] Wudyqv4491 García RoadDublin [place] [id number] Beta globulin/Protein.total Elph mass fraction (U) 24.8 % Normal [facility] Internal Medicine Work Phone: Comment on above: PATIENT NOT FASTINGP ERFORMED BY: CB [facility] Ouaswe3226 García RoadDublin [place] [id number] Gamma globulin/Protein.total Elph mass fraction (U) 16.0 % Normal [facility] Internal Medicine Work Phone: Comment on above: PATIENT NOT FASTINGP ERFORMED BY: CB [facility] Qxdsoe5338 García RoadDublin [place] [id number] Laboratory comment Herbert (Report) SPRCS Normal [facility] Internal Medicine Work Phone: Comment on above: Protein electrophore sis scan will follow via computer, mail, orcourier delivery. PATIENT NOT FASTINGP ERFORMED BY: CB [facility] Ixjkut0503 García RoadDublin [place] [id number] Protein mass conc (U) mg/dL Normal 0.0-15.0 [facility] Work Phone: Comment on above: Verified by repeat analysis Effective September 29, 2015 the reference interval for Protein, Total, Urine will be changing to: Not Estab. PATIENT NOT FASTINGP ERFORMED BY: CB [facility] Pkpmbm2262 García Integrated Trade ProcessingDublin [place] [id number] Protein.monoclonal/Pro tein.total Elph mass fraction (U) Not Observed Normal [facility] Work Phone: Comment on above: PATIENT NOT FASTINGP ERFORMED BY: CB [facility] Ndvgta2006 García RoadDublin [place] [id number] URIC ACID BLOOD (89437)Order ed By: Channel Sales Manager on 09-05-2015 Urate mass conc 7.8 mg/dL Normal 3.7-8.6 [facility] Internal Medicine Work Phone: Comment on above: Therapeutic target f or gout patients: <6.0 PATIENT NOT FASTINGP ERFORMED BY: Absio6370 [facility] [id number] Urinalysis, Office (48731)Or dered By: Meredith Mcginnis on 09-05-2015 Bilirubin Ql (U) Negative Normal Comprehe nsive Internal Medicine Work Phone: Glucose Test strip mass conc (U) Negative Normal [facility] Work Phone: Hemoglobin Ql (U) Negative Normal Compreh ensive Internal Medicine Work Phone: Ketones Ql (U) Negative Normal Comprehens gary Internal Medicine Work Phone: Leukocyte esterase Test strip Ql (U) Negative Normal [facility] Work Phone: Nitrite Ql (U) Negative Normal Comprehens gary Internal Medicine Work Phone: pH (U) 7.5 [pH] Normal [facility] Work Phone: Protein Ql (U) Negative Normal Comprehens gary Internal Medicine Work Phone: Specific gravity Relative Density (U) 1.015 1 Normal Comprehensi ve Internal Medicine Work Phone: Urobilinogen mass/time (24H U) Normal Normal [facility] Work Phone: VITAMIN B12 AND FOLATES (826 07)Ordered By: Channel Sales Manager on 09-05-2015 Cobalamin (Vitamin B12) mass conc 378 pg/mL Normal 211-946 [facility] Work Phone: Comment on above: PATIENT NOT FASTINGP ERFORMED BY: DashThis70 [facility] [id number] Folate mass conc 8.5 ng/mL Normal Comprehe nsive Internal Medicine Work Phone: Comment on above: A serum folate stefan ntration of less than 3.1 ng/mL isconsidered to represent clinical deficiency. PATIENT NOT FASTINGP ERFORMED BY: Absio6370 [place] [id number] serum free light chains (838 83)Ordered By: Channel Sales Manager on 09-05-2015 Immunoglobulin light chains.kappa.free mass conc (S) 11.46 mg/L Normal 3.30-19.40 [facility] Work Phone: Comment on above: PATIENT NOT FASTINGP ERFORMED BY: SASHA [facility] Ntifsj1406 [facility] [id number] Immunoglobulin light chains.kappa.free/Immu noglobulin light chains.lambda.free mass ratio (S) 1.39 1 Normal 0.26-1.65 [facility] Work Phone: Comment on above: PATIENT NOT FASTINGP ERFORMED BY: SASHA LabAspirus [facility]ton[facility] Hospital6370 [facility] [id number] Immunoglobulin light chains.lambda.free mass conc 8.27 mg/L Normal 5.71-26.30 [facility] Work Phone: Comment on above: PATIENT NOT FASTINGP ERFORMED BY: [facility] Dzlzot3266 [facility] [id number] serum immunofixation (87348) Ordered By: Channel Sales Manager on 09-05-2015 IgA mass conc 145 mg/dL Normal 61-437 Comprehensi ve Internal Medicine Work Phone: Comment on above: PATIENT NOT FASTINGP ERFORMED BY: SASHA [facility] Tmwxpd7612 [facility] [id number] IgG mass conc 885 mg/dL Normal 700-1600 Comprehensi ve Internal Medicine Work Phone: Comment on above: PATIENT NOT FASTINGP ERFORMED BY: SASHA Lab[facility] Rwsiwd5461 [facility] [id number] IgM mass conc 174 mg/dL Abnormal 20-172 Comprehensi ve Internal Medicine Work Phone: Comment on above: PATIENT NOT FASTINGP ERFORMED BY: LabCass [facility] Hdgodn0055 [facility] [id number] Protein Fractions Interp IFEGK Normal [facility] Work Phone: Comment on above: Immunofixation shows IgG monoclonal protein with kappa light chainspecificity. PATIENT NOT FASTINGP ERFORMED BY: SASHA LabCass [facility] Cikbol7471 [facility] [id number] urine immunofixation (26982) Ordered By: Channel Sales Manager on 09-05-2015 Interpretation Immunofixation Interp (U) UPEIP Normal [facility] Work Phone: Comment on above: No monoclonality det ected. PATIENT NOT FASTINGP ERFORMED BY: [facility] Jrfqar4877 García [facility]in [place] [id number] HgA1C , Office (61773)Ordere d By: Lois Greenwood on 08-26-2015 Hemoglobin A1c/Hemoglobin.total mass fraction (Bld) 5.3 % Normal 4.6 - 7.1 Comprehensiv e Internal Medicine Work Phone: CBC with auto diff (49435)Or dered By: Channel Sales Manager on 08-25-2015 Basophils #/vol (Bld) 0.0 {x10E3/uL} Normal 0.0-0.2 [facility] Work Phone: Comment on above: PATIENT WAS FASTINGP ERFORMED BY: [facility] Gwvjeh5155 [facility] [id number] Information: [id number] Basophils/100 WBC (Bld) 0 % Normal [facility] Work Phone: Comment on above: PATIENT WAS FASTINGP ERFORMED BY: [facility] Zygola1779 [facility] [id number] Information: [id number] Eosinophils #/vol (Bld) 0.1 {x10E3/uL} Normal 0.0-0.4 [facility] Work Phone: Comment on above: PATIENT WAS FASTINGP ERFORMED BY: CB [facility] Suzqtr9749 García [facility]in [place] [id number] Information: [id number] Eosinophils/100 WBC (Bld) 1 % Normal [facility] Work Phone: Comment on above: PATIENT WAS FASTINGP ERFORMED BY: [facility] Ymspmx7967 García [facility] [id number] Information: [id number],[id number] Erythrocyte distribution width Ratio (RBC) 13.0 % Normal 12.3-15.4 [facility] Work Phone: Comment on above: PATIENT WAS FASTINGP ERFORMED BY: [place] 3132470 [facility] [id number] Information: 904345,[id number] Hematocrit Volume Fraction (Bld) 45.0 % Normal 37.5-51.0 [facility] Work Phone: Comment on above: PATIENT WAS FASTINGP ERFORMED BY: [address] [id number] Information: [id number],[id number] Hemoglobin mass conc (Bld) 14.8 g/dL Normal 12.6-17.7 [facility] Work Phone: Comment on above: PATIENT WAS FASTINGP ERFORMED BY: [address] [id number] Information: [id number] Immature granulocytes #/vol (Bld) 0.0 {x10E3/uL} Normal 0.0-0.1 [facility] Work Phone: Comment on above: PATIENT WAS FASTINGP ERFORMED BY: [address] [id number] Information: [id number],Q70414 Immature granulocytes/100 WBC (Bld) 0 % Normal [facility] Work Phone: Comment on above: PATIENT WAS FASTINGP ERFORMED BY: [address] [id number] Information: 962206,[id number] Lymphocytes #/vol (Bld) 2.4 {x10E3/uL} Normal 0.7-3.1 [facility] Work Phone: Comment on above: PATIENT WAS FASTINGP ERFORMED BY: [address] [id number] Information: 074721,[id number] Lymphocytes/100 WBC (Bld) 21 % Normal [facility] Work Phone: Comment on above: PATIENT WAS FASTINGP ERFORMED BY: [address] [id number] Information: 079069,[id number] MCH Entitic mass (RBC) 30.6 pg Normal 26.6-33.0 [facility] Internal Medicine Work Phone: Comment on above: PATIENT WAS FASTINGP ERFORMED BY: [address] [id number] Information: [id number] MCHC mass conc (RBC) 32.9 g/dL Normal 31.5-35.7 [facility] Internal Medicine Work Phone: Comment on above: PATIENT WAS FASTINGP ERFORMED BY: [address] [id number] Information: [id number] MCV Entitic volume (RBC) 93 fL Normal 79-97 [facility] Work Phone: Comment on above: PATIENT WAS FASTINGP ERFORMED BY: [address] [id number] Information: 337308,[id number] Monocytes #/vol (Bld) 1.1 {x10E3/uL} Abnormal 0.1-0.9 [facility] Work Phone: Comment on above: PATIENT WAS FASTINGP ERFORMED BY: [address] [id number] Information: 286754,[id number] Monocytes/100 WBC (Bld) 10 % Normal [facility] Work Phone: Comment on above: PATIENT WAS FASTINGP ERFORMED BY: [address] [id number] Information: 225833,[id number] Neutrophils #/vol (Bld) 7.8 {x10E3/uL} Abnormal 1.4-7.0 [facility] Work Phone: Comment on above: PATIENT WAS FASTINGP ERFORMED BY: SASHA [facility]ontCass [facility] Rogywb3370 [facility] [id number] Information: 648889,[id number] Neutrophils/100 WBC (Bld) 68 % Normal [facility] Work Phone: Comment on above: PATIENT WAS FASTINGP ERFORMED BY: [facility] Tfoqiz0753 [facility] [id number] Information: [id number] Platelets #/vol (Bld) 303 {x10E3/uL} Normal 150-379 [facility] Work Phone: Comment on above: PATIENT WAS FASTINGP ERFORMED BY: SASHA [facility] Enbvze9691 [facility] [id number] Information: [id number],[id number] RBC #/vol (Bld) 4.83 {x10E6/uL} Normal 4.14-5.80 Comp rehensive Internal Medicine Work Phone: Comment on above: PATIENT WAS FASTINGP ERFORMED BY: [facility] Kzgbua7845 [facility] [id number] Information: [id number] WBC #/vol (Bld) 11.5 {x10E3/uL} Abnormal 3.4-10.8 Comp rehensive Internal Medicine Work Phone: Comment on above: PATIENT WAS FASTINGP ERFORMED BY: [facility] Sqhbsx9802 [facility] [id number] Information: 055976,[id number] LIPID PANEL (08956)Ordered B y: Channel Sales Manager on 08-25-2015 Cholesterol in HDL mass conc 32 mg/dL Abnormal [facility] Work Phone: Comment on above: According to ATP-III Guidelines, HDL-C >59 mg/dL is considered anegative risk factor for CHD. PATIENT WAS FASTINGP ERFORMED BY: [facility] Ynvyst5655 [facility] [id number] Cholesterol in LDL mass conc 87 mg/dL Normal 0-99 [facility] Work Phone: Comment on above: PATIENT WAS FASTINGP ERFORMED BY: SASHA Duranlin6370 [facility] [id number] Cholesterol in LDL/Cholesterol in HDL mass ratio 2.7 {ratio_units} Normal 0.0-3.6 [facility] Work Phone: Comment on above: LDL/HDL Ratio Men Wo men 1/2 Avg.Risk 1.0 1.5 Avg.Risk 3.6 3.2 2X Avg.Risk 6.2 5.0 3X Avg.Risk 8.0 6.1 PATIENT WAS FASTINGP ERFORMED BY: SASHA Duranlin6370 [facility] [id number] Cholesterol in VLDL mass conc 55 mg/dL Abnormal 5-40 [facility] Work Phone: Comment on above: PATIENT WAS FASTINGP ERFORMED BY: SASHA Duranlin6370 [facility] [id number] Cholesterol mass conc 174 mg/dL Normal 100-199 Com prehensive Internal Medicine Work Phone: Comment on above: PATIENT WAS FASTINGP ERFORMED BY: SASHA Duranlin6370 [facility] [id number] Triglyceride mass conc 277 mg/dL Abnormal 0-149 Co mprehensive Internal Medicine Work Phone: Comment on above: PATIENT WAS FASTINGP ERFORMED BY: SASHA Duranlin6370 [facility] [id number] METABOLIC PANEL, COMPREHENSI VE (51891)Ordered By: Channel Sales Manager on 08-25-2015 Albumin mass conc 4.6 g/dL Normal 3.6-4.8 Compreh ensive Internal Medicine Work Phone: Comment on above: PATIENT WAS FASTINGP ERFORMED BY: SASHA Duranlin6370 [facility] [id number]; apt. 4-5-16 Albumin/Globulin mass ratio 1.8 {ratio} Normal 1.1-2.5 [facility] Work Phone: Comment on above: PATIENT WAS FASTINGP ERFORMED BY: CB [facility] Rcyxod5019 García RoadDublin [place] [id number]; apt. 4-5-16 ALP enzyme act/vol 78 [iU]/L Normal 39-117 [facility] Internal Medicine Work Phone: Comment on above: PATIENT WAS FASTINGP ERFORMED BY: CB [facility] Oklftl7043 García RoadDublin [place] [id number]; apt. 4-5-16 ALT enzyme act/vol 20 [iU]/L Normal 0-44 [facility] Work Phone: Comment on above: PATIENT WAS FASTINGP ERFORMED BY: CB [facility] Knqhgv7006 [address]ía RoadDublin [place] [id number]; apt. 4-5-16 AST enzyme act/vol 19 [iU]/L Normal 0-40 [facility]park[facility] Internal [facility] Work Phone: Comment on above: PATIENT WAS FASTINGP ERFORMED BY: CB [facility] Kmxyyx5495 [address]ía RoadDublin [place] [id number]; apt. 4-5-16 Bilirubin mass conc 0.5 mg/dL Normal 0.0-1.2 Compr [facility] Internal Medicine Work Phone: Comment on above: PATIENT WAS FASTINGP ERFORMED BY: CB [facility] Xoybpk6332 [address]ía RoadDublin [place] [id number]; apt. 4-5-16 Calcium mass conc 9.7 mg/dL Normal 8.6-10.2 Compreh [facility] Internal [facility] Work Phone: Comment on above: PATIENT WAS FASTINGP ERFORMED BY: CB [facility] Exmjsv7628 García RoadDublin [place] [id number]; apt. 4-5-16 Chloride molar conc 99 mmol/L Normal 97-108 Compr [facility] Internal Medicine Work Phone: Comment on above: PATIENT WAS FASTINGP ERFORMED BY: CB [facility] Jgwlnk0085 García RoadDublin [place] [id number]; apt. 4-5-16 CO2 molar conc 24 mmol/L Normal 18-29 Comprehens gary Internal Medicine Work Phone: Comment on above: PATIENT WAS FASTINGP ERFORMED BY: CB [facility] Ewadke8628 García RoadDublin [place] [id number]; apt. 4-5-16 Creatinine mass conc 1.25 mg/dL Normal 0.76-1.27 Comp rehensive Internal Medicine Work Phone: Comment on above: PATIENT WAS FASTINGP ERFORMED BY: CB [facility] Acgtiy6882 García RoadDublin [place] [id number]; apt. 4-5-16 GFR/1.73 sq M predicted among blacks CKD-EPI vol rate/area (S/P/Bld) 67 mL/min/1.73 Normal [facility] Work Phone: Comment on above: PATIENT WAS FASTINGP ERFORMED BY: CB [facility] Pryaih9313 García RoadDublin [place] [id number]; apt. 4-5-16 GFR/1.73 sq M predicted among non-blacks CKD-EPI vol rate/area (S/P/Bld) 58 mL/min/1.73 Abnormal Comprehensiv e Internal Medicine Work Phone: Comment on above: PATIENT WAS FASTINGP ERFORMED BY: CB [facility] Vlakly6067 [address]ía RoadDublin [place] [id number]; apt. 4-5-16 Globulin mass conc (S) 2.6 g/dL Normal 1.5-4.5 Co mprehensive Internal Medicine Work Phone: Comment on above: PATIENT WAS FASTINGP ERFORMED BY: CB [facility] Mzjvaz8199 García RoadDublin [place] [id number]; apt. 4-5-16 Glucose mass conc 113 mg/dL Abnormal 65-99 Compreh ensive Internal Medicine Work Phone: Comment on above: PATIENT WAS FASTINGP ERFORMED BY: CB [facility] Hebayj1189 [address]ía RoadDublin [place] [id number]; apt. 4-5-16 Potassium molar conc 4.2 mmol/L Normal 3.5-5.2 Comp rehensive Internal Medicine Work Phone: Comment on above: PATIENT WAS FASTINGP ERFORMED BY: CB [facility] Rqzarf2776 García RoadDublin [place] [id number]; apt. 4-5-16 Protein mass conc 7.2 g/dL Normal 6.0-8.5 Compreh ensive Internal Medicine Work Phone: Comment on above: PATIENT WAS FASTINGP ERFORMED BY: CB [facility] Lyctuq8663 García RoadDublin [place] [id number]; apt. 4-5-16 Sodium molar conc 141 mmol/L Normal 134-144 Compreh ensive Internal Medicine Work Phone: Comment on above: PATIENT WAS FASTINGP ERFORMED BY: CB [facility] Sctxzm8398 García RoadDublin [place] [id number]; apt. 45-16 Urea nitrogen mass conc 25 mg/dL Normal 8-27 [facility] Work Phone: Comment on above: PATIENT WAS FASTINGP ERFORMED BY: CB [facility] Hgkjxt1508 [address]ía RoadDublin [place] [id number]; apt. 45-16 Urea nitrogen/Creatinine mass ratio 20 mg/mg Normal 10-22 [facility] Medicine Work Phone: Comment on above: PATIENT WAS FASTINGP ERFORMED BY: CB [facility] Ugqzmw4315 [address]ía RoadDublin [place] [id number]; apt. 16 Microscopic ExaminationOrder ed By: Channel Sales Manager on 08-25-2015 Bacteria LM.HPF #/area (Urine sed) None seen Normal [facility] Medicine Work Phone: Comment on above: PATIENT WAS FASTINGP ERFORMED BY: CB [facility] Liuhwn4817 [address]ía RoadDublin [place] [id number] Epithelial cells LM.HPF #/area (Urine sed) None seen Normal 0 - 10 [facility] Medicine Work Phone: Comment on above: PATIENT WAS FASTINGP ERFORMED BY: CB [facility] Dibsjd4105 García RoadDublin [place] [id number] Mucus Ql (Urine sed) Present Normal Comp rehensive Internal Medicine Work Phone: Comment on above: PATIENT WAS FASTINGP ERFORMED BY: SASHA [facility] Gqzjrt6249 [address]ía RoadDublin [place] [id number] RBC LM.HPF #/area (Urine sed) None seen Normal 0 - 2 [facility] Work Phone: Comment on above: PATIENT WAS FASTINGP ERFORMED BY: SASHA [facility] Akwmlk1994 [address]ía RoadDublin [place] [id number] WBC LM.HPF #/area (Urine sed) 0-5 Normal 0 - 5 [facility] Work Phone: Comment on above: PATIENT WAS FASTINGP ERFORMED BY: SASHA [facility] Kbdhaj9679 García RoadDublin [place] [id number] URINALYSIS, W/ MICRO ([id number]) Ordered By: Channel Sales Manager on 08-25-2015 Appearance Nom (U) Clear Normal Compre hensive Internal Medicine Work Phone: Comment on above: PATIENT WAS FASTINGP ERFORMED BY: SASHA [facility] Ewugmn2156 García RoadDublin [place] [id number] Bilirubin Ql (U) Negative Normal Comprehe nsive Internal Medicine Work Phone: Comment on above: PATIENT WAS FASTINGP ERFORMED BY: SASHA [facility] Ohpoyd8212 García RoadDublin [place] [id number] Color Nom (U) Yellow Normal Comprehensi ve Internal Medicine Work Phone: Comment on above: PATIENT WAS FASTINGP ERFORMED BY: SASHA [facility] Kqgumd2008 García RoadDublin [place] [id number] Glucose Ql (U) Negative Normal Comprehens gary Internal Medicine Work Phone: Comment on above: PATIENT WAS FASTINGP ERFORMED BY: SASHA [facility] Texaqt7890 García RoadDublin [place] [id number] Hemoglobin Ql (U) Negative Normal Compreh ensive Internal Medicine Work Phone: Comment on above: PATIENT WAS FASTINGP ERFORMED BY: SASHA [facility] Vfygjh0064 [address]ía RoadDublin [place] [id number] Ketones Ql (U) Negative Normal Comprehens gary Internal Medicine Work Phone: Comment on above: PATIENT WAS FASTINGP ERFORMED BY: SASHA LabDavid DuranLrwhwi1626 García RoadDublin [place] [id number] Leukocyte esterase Test strip Ql (U) Negative Normal [facility] Medicine Work Phone: Comment on above: PATIENT WAS FASTINGP ERFORMED BY: SASHA Duranlin6370 [address]ía RoadDublin [place] [id number] Microscopic observation LM Nom (Urine sed) MICRON Normal [facility] Medicine Work Phone: Comment on above: Microscopic follows if indicated. PATIENT WAS FASTINGP ERFORMED BY: SASHA Duranlin6370 [address]ía RoadDublin [place] [id number] Microscopic observation LM Nom (Urine sed) See below: Normal [facility] Medicine Work Phone: Comment on above: Microscopic was anika cated and was performed. PATIENT WAS FASTINGP ERFORMED BY: SASHA Duranlin6370 García RoadDuin [place] [id number] Nitrite Ql (U) Negative Normal Comprehens gary Internal Medicine Work Phone: Comment on above: PATIENT WAS FASTINGP ERFORMED BY: SASHA Duranlin6370 [address] [facility]in [place] [id number] pH (U) 5.5 [pH] Normal 5.0-7.5 [facility] Work Phone: Comment on above: PATIENT WAS FASTINGP ERFORMED BY: SASHA Duranlin6370 García RoadUNC Health Rockingham [id number] Protein Ql (U) Trace Normal Comprehens gary Internal Medicine Work Phone: Comment on above: PATIENT WAS FASTINGP ERFORMED BY: SASHA LabDavid DuranGykoxt0101 García [facility] InstituteDublin [place] [id number] Specific gravity Relative Density (U) >=1.030 Abnormal 1.005-1.030 Comprehensi ve Internal Medicine Work Phone: Comment on above: PATIENT WAS FASTINGP ERFORMED BY: SASHA LabaDvid DuranCuabfy2293 García RoadDublin [place] [id number] Urobilinogen Test strip mass conc (U) 0.2 mg/dL Normal 0.2-1.0 Comprehensiv e Internal Medicine Work Phone: Comment on above: PATIENT WAS FASTINGP ERFORMED BY: [facility] Tjjdeq6729 [address] Diop [place] [id number] Lipid ProfileOrdered By: Layer 7 Technologiess tem Cheese Processor on 04-02-2015 Cholesterol in HDL mass conc 39 mg/dL Abnormal [facility] Medicine Work Phone: Comment on above: Reference Range HDL <40 mg/dL Low HDL Cholesterol HDL >or= 60 mg/dL High HDL Cholesterol [facility] spital [address] [place], [place], [address] Cholesterol in LDL mass conc 64 mg/dL Normal 0-130 [facility] Medicine Work Phone: Comment on above: [facility] [address] [place], [place], [address] Cholesterol in VLDL mass conc 27 mg/dL Normal 5-40 [facility] Internal Medicine Work Phone: Comment on above: [facility] [address] [place], [place], [address] Cholesterol mass conc 130 mg/dL Normal Com prehensive Internal Medicine Work Phone: Comment on above: <200 mg/dL Desirable 200-240 mg/dL Borderline >240 mg/dL High Risk [facility] [address] [place], [place], [address] Triglyceride mass conc 136 mg/dL Normal Co cox bransonensive Internal Medicine Work Phone: Comment on above: Serum Triglycerides Reference Interval Normal <150 mg/dL Borderline high 150 - 199 mg/dL High 200 - 499 mg/dL Very High > or = 500 mg/dL [facility] [address] [place], [place], [address] Liver ProfileOrdered By: Layer 7 Technologiess tem Cheese Processor on 04-02-2015 Albumin mass conc 3.6 g/dL Normal 3.4-5.0 Compreh ensive Internal Medicine Work Phone: Comment on above: [facility] spital [address] [place], [place], [address] ALP enzyme act/vol 71 U/L Normal 50-136 [facility] Internal Medicine Work Phone: Comment on above: [facility] spital [address] [place], [place], [address] ALT enzyme act/vol 25 U/L Normal 12-78 [facility] Internal Medicine Work Phone: Comment on above: [facility] spital [address] [place], [place], [address] AST enzyme act/vol 17 U/L Normal 15-37 [facility] Internal Medicine Work Phone: Comment on above: [facility] [address] [place], [place], [address] Bilirubin mass conc 1.80 mg/dL Abnormal 0.20-1.00 [facility] Internal Medicine Work Phone: Comment on above: [facility] [address] [place], [place], [address] Bilirubin.direct mass conc 0.33 mg/dL Abnormal 0.00-0.30 [facility] Internal Medicine Work Phone: Comment on above: [facility] [address] [place], [address] Globulin mass conc (S) 3.2 g/dL Normal 2.3-3.5 Co [facility] Internal Medicine Work Phone: Comment on above: [facility] [address] [place], [address] Protein mass conc 6.8 g/dL Normal 6.4-8.2 [facility] Internal Medicine Work Phone: Comment on above: [facility] [address] [place], [place], [address] CBC with auto diff ([id number])Or dered By: Channel Sales Manager on 02-17-2015 Basophils #/vol (Bld) 0.0 {x10E3/uL} Normal 0.0-0.2 [facility] Work Phone: Comment on above: PATIENT WAS FASTINGP ERFORMED BY: SASHA [facility] Vuzeyb7379 [facility] [id number] Information: [id number]; apt. 15 Basophils/100 WBC (Bld) 0 % Normal [facility] Medicine Work Phone: Comment on above: PATIENT WAS FASTINGP ERFORMED BY: SASHA [facility] Obmyxq2374 [facility] [id number] Information: 680374,[id number]; apt. 02-20-15 Eosinophils #/vol (Bld) 0.2 {x10E3/uL} Normal 0.0-0.4 [facility] Work Phone: Comment on above: PATIENT WAS FASTINGP ERFORMED BY: [place] [address]2470 [facility] [id number] Information: 732553,[id number]; apt. 15 Eosinophils/100 WBC (Bld) 2 % Normal [facility] Medicine Work Phone: Comment on above: PATIENT WAS FASTINGP ERFORMED BY: [address] [id number] Information: 511497,[id number]; apt. 02-20-15 Erythrocyte distribution width Ratio (RBC) 13.2 % Normal 12.3-15.4 [facility] Medicine Work Phone: Comment on above: PATIENT WAS FASTINGP ERFORMED BY: [facility]6370 [facility] [id number] Information: 458662,N34840; apt. 02-20-15 Hematocrit Volume Fraction (Bld) 44.1 % Normal 37.5-51.0 [facility] Work Phone: Comment on above: PATIENT WAS FASTINGP ERFORMED BY: [place] 3132470 [facility] [id number] Information: 245703,P51433; apt. 02-20-15 Hemoglobin mass conc (Bld) 15.0 g/dL Normal 12.6-17.7 [facility] Work Phone: Comment on above: PATIENT WAS FASTINGP ERFORMED BY: [address] [id number] Information: 315605,[id number]; apt. 02-20-15 Immature granulocytes #/vol (Bld) 0.0 {x10E3/uL} Normal 0.0-0.1 [facility] Work Phone: Comment on above: PATIENT WAS FASTINGP ERFORMED BY: [address] [id number] Information: 211868,[id number]; apt. 02-20-15 Immature granulocytes/100 WBC (Bld) 0 % Normal [facility] Work Phone: Comment on above: PATIENT WAS FASTINGP ERFORMED BY: [address] [id number] Information: 252390,M54171; apt. 02-20-15 Lymphocytes #/vol (Bld) 2.7 {x10E3/uL} Normal 0.7-3.1 [facility] Work Phone: Comment on above: PATIENT WAS FASTINGP ERFORMED BY: [place] 3132470 [facility] [id number] Information: 865379,[id number]; apt. 02-20-15 Lymphocytes/100 WBC (Bld) 30 % Normal [facility] Medicine Work Phone: Comment on above: PATIENT WAS FASTINGP ERFORMED BY: [place] 3132470 [facility] [id number] Information: 771487,V92824; apt. 02-20-15 MCH Entitic mass (RBC) 30.7 pg Normal 26.6-33.0 [facility] Internal Medicine Work Phone: Comment on above: PATIENT WAS FASTINGP ERFORMED BY: [place] [id number] [facility] [id number] Information: 766629,F69450; apt. 02-20-15 MCHC mass conc (RBC) 34.0 g/dL Normal 31.5-35.7 [facility] Internal Medicine Work Phone: Comment on above: PATIENT WAS FASTINGP ERFORMED BY: [place] 3132470 [facility] [id number] Information: 749285,[id number]; apt. 02-20-15 MCV Entitic volume (RBC) 90 fL Normal 79-97 [facility] Medicine Work Phone: Comment on above: PATIENT WAS FASTINGP ERFORMED BY: [address] [id number] Information: 451366,[id number]; apt. 02-20-15 Monocytes #/vol (Bld) 1.0 {x10E3/uL} Abnormal 0.1-0.9 [facility] Medicine Work Phone: Comment on above: PATIENT WAS FASTINGP ERFORMED BY: [facility]6370 [facility] [id number] Information: 568738,D42974; apt. 02-20-15 Monocytes/100 WBC (Bld) 11 % Normal [facility] Medicine Work Phone: Comment on above: PATIENT WAS FASTINGP ERFORMED BY: [facility]6370 [facility] [id number] Information: 491218,C05708; apt. 02-20-15 Neutrophils #/vol (Bld) 5.1 {x10E3/uL} Normal 1.4-7.0 [facility] Work Phone: Comment on above: PATIENT WAS FASTINGP ERFORMED BY: [place] 3132470 [facility] [id number] Information: 486304,M71975; apt. 02-20-15 Neutrophils/100 WBC (Bld) 57 % Normal [facility] Medicine Work Phone: Comment on above: PATIENT WAS FASTINGP ERFORMED BY: CB [facility] Thjsgy1673 [facility] [id number] Information: 042319,S52845; apt. 02-20-15 Platelets #/vol (Bld) 258 {x10E3/uL} Normal 150-379 [facility] Medicine Work Phone: Comment on above: PATIENT WAS FASTINGP ERFORMED BY: [facility] Plesmy6428 [facility] [id number] Information: 602473,S85669; apt. 02-20-15 RBC #/vol (Bld) 4.89 {x10E6/uL} Normal 4.14-5.80 [facility] Internal Medicine Work Phone: Comment on above: PATIENT WAS FASTINGP ERFORMED BY: [facility] Eqiqqr1937 [facility] [id number] Information: 767158,H73266; apt. 02-20-15 WBC #/vol (Bld) 9.0 {x10E3/uL} Normal 3.4-10.8 [facility] Internal Medicine Work Phone: Comment on above: PATIENT WAS FASTINGP ERFORMED BY: [facility] Brvnew4596 [facility] [id number] Information: 091041,[id number]; apt. 02-20-15 LIPID PANEL ([id number])Ordered B y: Channel Sales Manager on 02-17-2015 Cholesterol in HDL mass conc 44 mg/dL Normal [facility] Work Phone: Comment on above: According to ATP-III Guidelines, HDL-C >59 mg/dL is considered anegative risk factor for CHD. copy to Dr. ladonna Mark MARIIENT WAS FASTINGPERFORMED BY: [facility] Eaothn0157 [facility] [id number] Cholesterol in LDL mass conc 93 mg/dL Normal 0-99 [facility] Work Phone: Comment on above: copy to Dr. kline; P ATIENT WAS FASTINGPERFORMED BY: CB [facility] Haawfi5902 [address]ía RoadDublin [place] [id number] Cholesterol in LDL/Cholesterol in HDL mass ratio 2.1 {ratio_units} Normal 0.0-3.6 [facility] Work Phone: Comment on above: LDL/HDL Ratio Men Wo men 1/2 Avg.Risk 1.0 1.5 Avg.Risk 3.6 3.2 2X Avg.Risk 6.2 5.0 3X Avg.Risk 8.[address] kline; P ATIENT WAS FASTINGPERFORMED BY: CB [facility] Vianrh2142 [address]ía RoadDublin [place] [id number] Cholesterol in VLDL mass conc 31 mg/dL Normal 5-40 [facility] Work Phone: Comment on above: copy to Dr. kline; P ATIENT WAS FASTINGPERFORMED BY: CB [facility] Gvebui0268 García RoadDublin [place] [id number] Cholesterol mass conc 168 mg/dL Normal 100-199 [facility] Internal Medicine Work Phone: Comment on above: copy to Dr. kline; P ATIENT WAS FASTINGPERFORMED BY: CB [facility] Pxener8671 [address]ía RoadDublin [place] [id number] Triglyceride mass conc 156 mg/dL Abnormal 0-149 Co [facility] Internal Medicine Work Phone: Comment on above: copy to Dr. kline; P ATIENT WAS FASTINGPERFORMED BY: CB [facility] Vdbsfk2662 [address]ía RoadDublin [place] [id number] METABOLIC PANEL, COMPREHENSI VE (24983)Ordered By: Channel Sales Manager on 02-17-2015 Albumin mass conc 4.5 g/dL Normal 3.6-4.8 Compreh [facility] Internal Medicine Work Phone: Comment on above: PATIENT WAS FASTINGP ERFORMED BY: CB [facility] Asimjl6011 [address]ía RoadDublin [place] [id number] Albumin/Globulin mass ratio 2.0 {ratio} Normal 1.1-2.5 [facility] Work Phone: Comment on above: PATIENT WAS FASTINGP ERFORMED BY: [facility] Blokkm2971 García RoadDublin [place] [id number] ALP enzyme act/vol 69 [iU]/L Normal 39-117 [facility] Internal Medicine Work Phone: Comment on above: PATIENT WAS FASTINGP ERFORMED BY: CB [facility] Fnfhvj9772 García Roadblin [place] [id number] ALT enzyme act/vol 24 [iU]/L Normal 0-44 [facility] Internal Medicine Work Phone: Comment on above: PATIENT WAS FASTINGP ERFORMED BY: [facility] Vfpshp0559 [address]ía RoadDublin [place] [id number] AST enzyme act/vol 18 [iU]/L Normal 0-40 [facility] Internal Medicine Work Phone: Comment on above: PATIENT WAS FASTINGP ERFORMED BY: [facility] Cfupmr4743 [address]ía RoadDublin [place] [id number] Bilirubin mass conc 0.8 mg/dL Normal 0.0-1.2 Compr [facility] Internal Medicine Work Phone: Comment on above: PATIENT WAS FASTINGP ERFORMED BY: [facility] Qzsnyb4813 García Roadblin [place] [id number] Calcium mass conc 9.2 mg/dL Normal 8.6-10.2 Compreh [facility] Internal Medicine Work Phone: Comment on above: PATIENT WAS FASTINGP ERFORMED BY: [facility] Pbhpyz1238 [address] RoadDublin [place] [id number] Chloride molar conc 100 mmol/L Normal 97-108 Compr ensive Internal Medicine Work Phone: Comment on above: PATIENT WAS FASTINGP ERFORMED BY: [facility] Vozahz2295 [address]ía RoadDublin [place] [id number] CO2 molar conc 23 mmol/L Normal 18-29 Comprehens gary Internal Medicine Work Phone: Comment on above: PATIENT WAS FASTINGP ERFORMED BY: SASHA [facility] Gppjxl0289 [address]ía RoadDublin [place] [id number] Creatinine mass conc 1.02 mg/dL Normal 0.76-1.27 Comp rehensive Internal Medicine Work Phone: Comment on above: PATIENT WAS FASTINGP ERFORMED BY: SASHA [facility] Vydusl1518 [address]ía RoadDublin [place] [id number] GFR/1.73 sq M predicted among blacks CKD-EPI vol rate/area (S/P/Bld) 86 mL/min/1.73 Normal [facility] Work Phone: Comment on above: PATIENT WAS FASTINGP ERFORMED BY: SASHA [facility] Hliemb8751 [address]ía RoadDublin [place] [id number] GFR/1.73 sq M predicted among non-blacks CKD-EPI vol rate/area (S/P/Bld) 75 mL/min/1.73 Normal Comprehensiv e Internal Medicine Work Phone: Comment on above: PATIENT WAS FASTINGP ERFORMED BY: SASHA [facility] Tsembo2037 [address]ía RoadDublin [place] [id number] Globulin mass conc (S) 2.2 g/dL Normal 1.5-4.5 Co cox bransonensive Internal Medicine Work Phone: Comment on above: PATIENT WAS FASTINGP ERFORMED BY: SASHA [facility] Xzizqo9578 [address]ía RoadDublin [place] [id number] Glucose mass conc 98 mg/dL Normal 65-99 Compreh ensive Internal Medicine Work Phone: Comment on above: PATIENT WAS FASTINGP ERFORMED BY: SASHA [facility] Lqsxup8851 [address] RoadDublin [place] [id number] Potassium molar conc 4.3 mmol/L Normal 3.5-5.2 Comp rehensive Internal Medicine Work Phone: Comment on above: PATIENT WAS FASTINGP ERFORMED BY: SASHA [facility] Gmwxoc8022 [address] RoadDublin [place] [id number] Protein mass conc 6.7 g/dL Normal 6.0-8.5 Compreh ensive Internal Medicine Work Phone: Comment on above: PATIENT WAS FASTINGP ERFORMED BY: SASHA [facility] Undtdc4628 [address] [facility] [id number] Sodium molar conc 141 mmol/L Normal 134-144 Compreh ensive Internal Medicine Work Phone: Comment on above: PATIENT WAS FASTINGP ERFORMED BY: SASHA [facility] Utuvcw3379 [facility] [id number] Urea nitrogen mass conc 19 mg/dL Normal 8-27 [facility] Work Phone: Comment on above: PATIENT WAS FASTINGP ERFORMED BY: SASHA [facility] Glvcqx5217 [facility] [id number] Urea nitrogen/Creatinine mass ratio 19 mg/mg Normal 10-22 [facility] Work Phone: Comment on above: PATIENT WAS FASTINGP ERFORMED BY: SASHA [facility] Uxifoa5600 [facility] [id number] MICROALBUMINOrdered By: Syst em Cheese Processor on 02-17-2015 Albumin DL <= 20 mg/L mass conc (U) mg/dL Normal 0.0-17.0 [facility] Work Phone: Comment on above: PATIENT WAS FASTINGP ERFORMED BY: SASHA LabMariela Fjssev8261 [facility] [id number] Albumin/Creatinine mass ratio (U) <2.9 Normal 0.0-30.0 [facility] Work Phone: Comment on above: PATIENT WAS FASTINGP ERFORMED BY: [facility] Hchtkz9932 [facility] [id number] Creatinine mass conc (U) 103.5 mg/dL Normal 22.0-328.0 [facility] Work Phone: Comment on above: PATIENT WAS FASTINGP ERFORMED BY: SASHA [facility] Yhuupp8060 [facility] [id number] PSA (PROSTATE SPECIFIC ANTIG EN) (V76.44)Ordered By: Channel Sales Manager on 02-17-2015 Prostate specific Ag mass conc 1.4 ng/mL Normal 0.0-4.0 [facility] Work Phone: Comment on above: Luis ECLIA methodol ogy. .According to the [place] [employer], Serum PSA shoulddecrease and remain at undetectable levels after radicalprostatectomy. The AUA defines biochemical recurrence as an initialPSA value 0.2 ng/mL or greater followed by a subsequent confirmatoryPSA value 0.2 ng/mL or greater.Values obtained with different assay methods or kits cannot be usedinterchangeably. Results cannot be interpreted as absolute evidenceof the presence or absence of malignant disease. PATIENT WAS FASTINGP ERFORMED BY: LabCoRobert Wood Johnson University HospitalFdiejm8936 [facility] [id number] Office Visiton 10-04-2014 cardiac risk group C Invalid Interpretation Code [facility]ordDisc[employer] [facility] Work Phone: General cardiovascular disease 10Y risk [#] [place].D'Agostpippa N/A Invalid Interpretation Code [employer] [employer] [facility] Work Phone: Tobacco use CPHS Former smoker Invalid Interpretation Code [employer] [employer] [facility] Work Phone: Lipid ProfileOrdered By: Kodi tem Cheese Processor on 10-01-2014 Cholesterol in HDL mass conc 33 mg/dL Abnormal [facility] Work Phone: Comment on above: Reference Range HDL <40 mg/dL Low HDL Cholesterol HDL >or= 60 mg/dL High HDL Cholesterol CC:DR.BONEZZITest auguste rformed at:[facility] Ygbtdnivbk4067 [place] [address] Cholesterol in LDL mass conc 57 mg/dL Normal 0-130 [facility] Work Phone: Comment on above: CC:DR.BONEZZITest auguste rformed at:[facility] Glniyreupt5772 [place] [address] Cholesterol in VLDL mass conc 30 mg/dL Normal 5-40 [facility] Work Phone: Comment on above: CC:DR.BONEZZITest auguste rformed at:[facility] Wgpbvabylt6507 [place] [address] Cholesterol mass conc 120 mg/dL Normal Com prehensive Internal Medicine Work Phone: Comment on above: <200 mg/dL Desirable 200-240 mg/dL Borderline >240 mg/dL High Risk CC:DR.BONEZZITest auguste rformed at:[facility] Zfmxqdljll1778 [place] [address] Triglyceride mass conc 148 mg/dL Normal 0-199 [facility] Work Phone: Comment on above: Serum Triglycerides Reference Interval Normal <150 mg/dL Borderline high 150 - 199 mg/dL High 200 - 499 mg/dL Very High > or = 500 mg/dL CC:DR.BONEZZITest auguste rformed at:[facility] Hxsyagbkuq3719 [place] [address] Liver ProfileOrdered By: Kodi tem Cheese Processor on 10-01-2014 Albumin mass conc 3.7 g/dL Normal 3.4-5.0 [facility] Internal Medicine Work Phone: Comment on above: CC:DR.BONEZZITest auguste rformed at:[facility] Iizsxxtyhb6512 [address] [place], [place] [id number] ALP enzyme act/vol 72 U/L Normal 50-136 [facility] Internal Medicine Work Phone: Comment on above: CC:DR.BONEZZITest auguste rformed at:[facility] Wxbkncvrup6675 [place] [address] ALT enzyme act/vol 28 U/L Normal 12-78 [facility] Internal Medicine Work Phone: Comment on above: CC:DR.BONEZZITest auguste rformed at:[facility] Crzmnpeufk2205 [address] [place], [place] [id number] AST enzyme act/vol 21 U/L Normal 15-37 [facility] Internal Medicine Work Phone: Comment on above: CC:DR.BONEZZITest auguste rformed at:[facility] Hnisjxxnag7571 [place] [address] Bilirubin mass conc 1.20 mg/dL Normal 0.00-4.00 [facility] Internal Medicine Work Phone: Comment on above: CC:DR.BONEZZITest auguste rformed at:[facility] Zgdqvnnpib2529 [place] [address] Bilirubin.direct mass conc 0.21 mg/dL Normal 0.00-0.30 [facility] Work Phone: Comment on above: CC:DR.BONEZZITest auguste rformed at:[facility] Xlqfigcwii6167 [place] [address] Globulin mass conc (S) 2.8 g/dL Normal 2.7-4.2 [facility] Internal Medicine Work Phone: Comment on above: CC:DR.BONEZZITest auguste rformed at:[facility] Uvhqaqospa4765 [place] [address] Protein mass conc 6.5 g/dL Normal 6.4-8.2 [facility] Internal Medicine Work Phone: Comment on above: CC:DR.BONEZZITest auguste rformed at:[facility] Lmtpcgujgc8308 [place] [address] CBC W/AUTO DIFF WBC ([id number])O rdered By: Channel Sales Manager on 09-11-2014 Basophils #/vol (Bld) 0.0 {x10E3/uL} Normal 0.0-0.2 [facility] Work Phone: Comment on above: PATIENT WAS FASTINGP ERFORMED BY: [facility] Drblqm0233 [facility] [id number] Basophils/100 WBC (Bld) 0 % Normal [facility] Work Phone: Comment on above: PATIENT WAS FASTINGP ERFORMED BY: [employer] Gexcnk4665 GarcíaEQALRandolph [facility] [id number] Eosinophils #/vol (Bld) 0.1 {x10E3/uL} Normal 0.0-0.4 [facility] Work Phone: Comment on above: PATIENT WAS FASTINGP ERFORMED BY: SASHA LabDavid DuranFoazpg2444 [facility] [id number] Eosinophils/100 WBC (Bld) 1 % Normal [facility] Work Phone: Comment on above: PATIENT WAS FASTINGP ERFORMED BY: SASHA KiahDavid DuranQvwmob5049 [facility] [id number] Erythrocyte distribution width Ratio (RBC) 13.1 % Normal 12.3-15.4 [facility] Work Phone: Comment on above: PATIENT WAS FASTINGP ERFORMED BY: SASHA LabDavid DuranOhxwrv2036 [facility] [id number] Hematocrit Volume Fraction (Bld) 44.1 % Normal 37.5-51.0 [facility] Work Phone: Comment on above: PATIENT WAS FASTINGP ERFORMED BY: SASHA Vargas6370 [facility] [id number] Hemoglobin mass conc (Bld) 14.9 g/dL Normal 12.6-17.7 [facility] Work Phone: Comment on above: PATIENT WAS FASTINGP ERFORMED BY: SASHA Duranlin6370 [facility] [id number] Immature granulocytes #/vol (Bld) 0.0 {x10E3/uL} Normal 0.0-0.1 [facility] Work Phone: Comment on above: PATIENT WAS FASTINGP ERFORMED BY: SASHA LabDavid DuranKwggcv7551 [facility] [id number] Immature granulocytes/100 WBC (Bld) 0 % Normal [facility] Work Phone: Comment on above: PATIENT WAS FASTINGP ERFORMED BY: SASHA LabCoshruti DuranEntzdm5266 [facility] [id number] Lymphocytes #/vol (Bld) 2.2 {x10E3/uL} Normal 0.7-3.1 [facility] Work Phone: Comment on above: PATIENT WAS FASTINGP ERFORMED BY: SASHA [facility] Vmslhx1460 García [facility] [place] [id number] Lymphocytes/100 WBC (Bld) 21 % Normal [facility] Work Phone: Comment on above: PATIENT WAS FASTINGP ERFORMED BY: SASHA LabCoRobert Wood Johnson University HospitalStawpr7617 García [facility] [id number] MCH Entitic mass (RBC) 31.3 pg Normal 26.6-33.0 [facility] Internal Medicine Work Phone: Comment on above: PATIENT WAS FASTINGP ERFORMED BY: SASHA [facility] Ttkzcz0847 García [facility] [id number] MCHC mass conc (RBC) 33.8 g/dL Normal 31.5-35.7 [facility] Internal Medicine Work Phone: Comment on above: PATIENT WAS FASTINGP ERFORMED BY: SASHA [facility] Fdrges2748 García [facility] [id number] MCV Entitic volume (RBC) 93 fL Normal 79-97 [facility] Work Phone: Comment on above: PATIENT WAS FASTINGP ERFORMED BY: SASHA LabAspirus Ontonagon Hospital6370 García [facility] [id number] Monocytes #/vol (Bld) 0.7 {x10E3/uL} Normal 0.1-0.9 [facility] Work Phone: Comment on above: PATIENT WAS FASTINGP ERFORMED BY: LabAspirus [facility]tonagon Hospital6370 García [facility] [id number] Monocytes/100 WBC (Bld) 6 % Normal [facility] Work Phone: Comment on above: PATIENT WAS FASTINGP ERFORMED BY: [facility] Pjusof7779 García [facility] [place] [id number] Neutrophils #/vol (Bld) 7.5 {x10E3/uL} Abnormal 1.4-7.0 [facility] Work Phone: Comment on above: PATIENT WAS FASTINGP ERFORMED BY: [facility] Bdbxww9506 García [facility] [place] [id number] Neutrophils/100 WBC (Bld) 72 % Normal [facility] Work Phone: Comment on above: PATIENT WAS FASTINGP ERFORMED BY: SASHA Cristo Vargas6370 García [facility] [place] [id number] Platelets #/vol (Bld) 267 {x10E3/uL} Normal 150-379 [facility] Work Phone: Comment on above: PATIENT WAS FASTINGP ERFORMED BY: SASHA LabMariela Dzghox2073 García [facility] [id number] RBC #/vol (Bld) 4.76 {x10E6/uL} Normal 4.14-5.80 Comp rehensive Internal Medicine Work Phone: Comment on above: PATIENT WAS FASTINGP ERFORMED BY: SASHA Cristo Duranlin6370 [facility] [id number] WBC #/vol (Bld) 10.6 {x10E3/uL} Normal 3.4-10.8 Comp rehensive Internal Medicine Work Phone: Comment on above: PATIENT WAS FASTINGP ERFORMED BY: SASHA KiahMariela Jwvdwj5486 [facility] [id number] Metabolic Panel, Basic (8004 8)Ordered By: Channel Sales Manager on 09-11-2014 Calcium mass conc 9.3 mg/dL Normal 8.6-10.2 Compreh ensive Internal Medicine Work Phone: Comment on above: PATIENT WAS FASTINGP ERFORMED BY: SASHA [facility] Yaixne2508 [facility] [id number] Chloride molar conc 101 mmol/L Normal 97-108 Compr ehensive Internal Medicine Work Phone: Comment on above: PATIENT WAS FASTINGP ERFORMED BY: SASHA [facility] Lxxkww9849 García [facility] [place] [id number] CO2 molar conc 24 mmol/L Normal 18-29 Comprehens gary Internal Medicine Work Phone: Comment on above: PATIENT WAS FASTINGP ERFORMED BY: SASHA [facility] Nfxbte0708 García [facility] [place] [id number] Creatinine mass conc 1.01 mg/dL Normal 0.76-1.27 Comp rehensive Internal Medicine Work Phone: Comment on above: PATIENT WAS FASTINGP ERFORMED BY: SASHA LabCoshruti VargasUcjatl2117 García Roadblin [place] [id number] GFR/1.73 sq M predicted among blacks CKD-EPI vol rate/area (S/P/Bld) 88 mL/min/1.73 Normal [facility] Work Phone: Comment on above: PATIENT WAS FASTINGP ERFORMED BY: SASHA [facility] Zvqfpu9405 García RoadUnc Health Pardeein [place] [id number] GFR/1.73 sq M predicted among non-blacks CKD-EPI vol rate/area (S/P/Bld) 76 mL/min/1.73 Normal Comprehensiv e Internal Medicine Work Phone: Comment on above: PATIENT WAS FASTINGP ERFORMED BY: SASHA [facility] Zwdgen0739 García [facility] [id number] Glucose mass conc 108 mg/dL Abnormal 65-99 Compreh ensive Internal Medicine Work Phone: Comment on above: PATIENT WAS FASTINGP ERFORMED BY: SASHA [facility] Romxst0229 García [facility] [place] [id number] Potassium molar conc 5.2 mmol/L Normal 3.5-5.2 Comp rehensive Internal Medicine Work Phone: Comment on above: PATIENT WAS FASTINGP ERFORMED BY: SASHA [facility] Aejlvw2162 García [facility] [id number] Sodium molar conc 140 mmol/L Normal 134-144 Compreh ensive Internal Medicine Work Phone: Comment on above: PATIENT WAS FASTINGP ERFORMED BY: SASHA [facility] Iwryzi8866 García [facility] [place] [id number] Urea nitrogen mass conc 20 mg/dL Normal 8-27 [facility] Work Phone: Comment on above: PATIENT WAS FASTINGP ERFORMED BY: SASHA [facility] Gegwgy1953 García [facility] [id number] Urea nitrogen/Creatinine mass ratio 20 mg/mg Normal 10-22 [facility] Work Phone: Comment on above: PATIENT WAS FASTINGP ERFORMED BY: SASHA [facility] Xaqwip6790 García [facility] [place] [id number] Microscopic ExaminationOrder ed By: Channel Sales Manager on 09-11-2014 Bacteria LM.HPF #/area (Urine sed) None seen Normal [facility] Work Phone: Comment on above: PATIENT WAS FASTINGP ERFORMED BY: SASHA [facility] Kkytnv7233 García [facility] [id number] Epithelial cells LM.HPF #/area (Urine sed) None seen Normal 0 - 10 [facility] Work Phone: Comment on above: PATIENT WAS FASTINGP ERFORMED BY: SASHA [facility] Tcxwud0814 García [facility] [id number] Mucus Ql (Urine sed) Present Normal Comp rehensive Internal Medicine Work Phone: Comment on above: PATIENT WAS FASTINGP ERFORMED BY: SASHA [facility] Czcftd3484 García [facility] [id number] RBC LM.HPF #/area (Urine sed) None seen Normal 0 - 2 [facility] Work Phone: Comment on above: PATIENT WAS FASTINGP ERFORMED BY: SASHA [facility] Tabicf5054 [facility] [id number] WBC LM.HPF #/area (Urine sed) None seen Normal 0 - 5 [facility] Work Phone: Comment on above: PATIENT WAS FASTINGP ERFORMED BY: SASHA [facility] Aybibz3339 [facility] [id number] TSH ([id number])Ordered By: Syste m Cheese Processor on 09-11-2014 Thyrotropin Qn 1.310 {uIU/mL} Normal 0.450-4.500 Compr ehensive Internal Medicine Work Phone: Comment on above: PATIENT WAS FASTINGP ERFORMED BY: SASHA [facility] Ckyrix3512 [facility] [id number] URINALYSIS, W/ MICRO ([id number]) Ordered By: Channel Sales Manager on 09-11-2014 Appearance Nom (U) Clear Normal Compre hensive Internal Medicine Work Phone: Comment on above: PATIENT WAS FASTINGP ERFORMED BY: SASHA [facility] Yzfcdy5752 García RoadDublin [place] [id number] Bilirubin Ql (U) Negative Normal Comprehe nsive Internal Medicine Work Phone: Comment on above: PATIENT WAS FASTINGP ERFORMED BY: SASHA [facility] Bxonel2069 García RoadDublin [place] [id number] Color Nom (U) Yellow Normal Comprehensi ve Internal Medicine Work Phone: Comment on above: PATIENT WAS FASTINGP ERFORMED BY: SASHA [facility] Zfhwdn9169 García RoadDublin [place] [id number] Glucose Ql (U) Negative Normal Comprehens gary Internal Medicine Work Phone: Comment on above: PATIENT WAS FASTINGP ERFORMED BY: SASHA [facility] Djbqxo2267 García RoadDublin [place] [id number] Hemoglobin Ql (U) Negative Normal Compreh ensive Internal Medicine Work Phone: Comment on above: PATIENT WAS FASTINGP ERFORMED BY: SASHA [facility] Utbkeo6467 García RoadDublin [place] [id number] Ketones Ql (U) Negative Normal Comprehens gary [facility] Work Phone: Comment on above: PATIENT WAS FASTINGP ERFORMED BY: SASHA [facility] Fatccu6871 García RoadDublin [place] [id number] Leukocyte esterase Test strip Ql (U) Negative Normal [facility] Work Phone: Comment on above: PATIENT WAS FASTINGP ERFORMED BY: CB [facility] Xrzsio3379 García RoadDublin [place] [id number] Microscopic observation LM Nom (Urine sed) See below: Normal [facility] Work Phone: Comment on above: Microscopic was anika cated and was performed. PATIENT WAS FASTINGP ERFORMED BY: CB [facility] Matpbl5430 García RoadDublin [place] [id number] Microscopic observation LM Nom (Urine sed) MICRON Normal [facility] Work Phone: Comment on above: Microscopic follows if indicated. PATIENT WAS FASTINGP ERFORMED BY: SASHA [facility] Udzqpv1831 García [facility] [id number] Nitrite Ql (U) Negative Normal Comprehens gary Internal Medicine Work Phone: Comment on above: PATIENT WAS FASTINGP ERFORMED BY: [facility] Qzbwjh5695 [facility] [id number] pH (U) 6.0 [pH] Normal 5.0-7.5 [facility] Work Phone: Comment on above: PATIENT WAS FASTINGP ERFORMED BY: [facility] Zbwqbm6874 García [facility] [id number] Protein Ql (U) Negative Normal Comprehens gary Internal Medicine Work Phone: Comment on above: PATIENT WAS FASTINGP ERFORMED BY: SASHA [facility] Ikndnt4707 [facility] [id number] Specific gravity Relative Density (U) 1.022 1 Normal 1.005-1.030 Comprehensi ve Internal Medicine Work Phone: Comment on above: PATIENT WAS FASTINGP ERFORMED BY: [facility] Hdgvbk7060 [facility] [id number] Urobilinogen Test strip mass conc (U) 1.0 mg/dL Normal 0.0-1.9 Comprehensiv e Internal Medicine Work Phone: Comment on above: PATIENT WAS FASTINGP ERFORMED BY: [facility] Kvxadl9541 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-2014 Anion gap 7 mmol/L Invalid Interpretation Code [facility] Work Phone: basophils as percent of blood leukocytes, manual count 0.5 % Invalid Interpretation Code [facility] Work Phone: BUN/Creatinine Ratio 16.0 mg/mg Invalid Interpretation Code [facility] Work Phone: Calcium 8.4 mg/dL Low [facility] Work Phone: Chloride 108 mmol/L High [facility] Work Phone: CO2 26.0 mmol/L Invalid Interpretation Code [facility] Work Phone: Creatinine 1.0 mg/dL Invalid Interpretation Code [facility] Work Phone: eGFR (non-black) 79 mL/min/{1.73_m2} Invalid Interpretation Code [facility] Work Phone: eGFR (non-black) 96 mL/min/{1.73_m2} Invalid Interpretation Code [facility] Work Phone: eosinophils as percent of blood leukocytes, manual count 1.8 % Invalid Interpretation Code [facility] Work Phone: Erythrocyte distribution width Auto Ratio (RBC) 12.7 % Invalid Interpretation Code [facility] Work Phone: Erythrocytes (RBC) 4.58 10*6/uL Low [facility] Work Phone: Glucose mass conc 113 mg/dL High [facility] Work Phone: Hematocrit (HCT) 43.2 % Invalid Interpretation Code [facility] Work Phone: Hemoglobin mass conc (Bld) 14.4 g/dL Invalid Interpretation Code [facility] Work Phone: Lymphocytes/100 leukocytes 30.5 % Invalid Interpretation Code [facility] Work Phone: MCH 31.4 pg Invalid Interpretation Code [facility] Work Phone: MCHC mass conc (RBC) 33.3 g/dL Invalid Interpretation Code [facility] Work Phone: MCV 94.3 fL High [facility] Work Phone: Monocytes/100 leukocytes 10.3 % High [facility] Work Phone: neutrophils, band form as percent of blood leukocytes, manual count 56.5 % Invalid Interpretation Code [facility] Work Phone: Platelets 230 10*3/mm3 Invalid Interpretation Code [facility] Work Phone: PMV by Staci 9.6 fL Invalid Interpretation Code [facility] Work Phone: Potassium molar conc 3.6 mmol/L Invalid Interpretation Code [facility] Work Phone: Sodium 141 mmol/L Invalid Interpretation Code [facility] Work Phone: Urea nitrogen 16 mg/dL Invalid Interpretation Code [facility] Work Phone: WBC (Leukocytes) 7.4 10*3/uL Invalid Interpretation Code [facility] Work Phone: CBC WITH MANUAL DIFF (96093) Ordered By: Channel Sales Manager on 02-08-2014 Basophils #/vol (Bld) 0.1 {x10E3/uL} Normal 0.0-0.2 [facility] Work Phone: Comment on above: PATIENT NOT FASTINGP ERFORMED BY: [employer] Odhrfr4594 García Integrated Trade ProcessingUNC Health Rockingham [id number] Information: [id number] Basophils/100 WBC (Bld) 1 % Normal [facility] Work Phone: Comment on above: PATIENT NOT FASTINGP ERFORMED BY: [employer] GarcíaEQALRandolph Health [id number] Information: [id number] Eosinophils #/vol (Bld) 0.2 {x10E3/uL} Normal 0.0-0.4 [facility] Work Phone: Comment on above: PATIENT NOT FASTINGP ERFORMED BY: [employer] LabRazmir6370 García Integrated Trade ProcessingUNC Health Rockingham [id number] Information: [id number] Eosinophils/100 WBC (Bld) 2 % Normal [facility] Work Phone: Comment on above: PATIENT NOT FASTINGP ERFORMED BY: [employer] Hremmd6562 [facility] [id number] Information: [id number] Erythrocyte distribution width Ratio (RBC) 12.7 % Normal 12.3-15.4 [facility] Work Phone: Comment on above: PATIENT NOT FASTINGP ERFORMED BY: SASHA Duranlin6370 [facility] [id number] Information: [id number] Hematocrit Volume Fraction (Bld) 40.8 % Normal 37.5-51.0 [facility] Work Phone: Comment on above: PATIENT NOT FASTINGP ERFORMED BY: SASHA Maravilla[address] [id number] Information: [id number] Hemoglobin mass conc (Bld) 14.5 g/dL Normal 12.6-17.7 [facility] Work Phone: Comment on above: PATIENT NOT FASTINGP ERFORMED BY: SASHA [address] [id number] Information: [id number] Immature granulocytes #/vol (Bld) 0.0 {x10E3/uL} Normal 0.0-0.1 [facility] Work Phone: Comment on above: PATIENT NOT FASTINGP ERFORMED BY: SASHA Maravilla Ckvpqj[address] [id number] Information: [id number] Immature granulocytes/100 WBC (Bld) 0 % Normal [facility] Work Phone: Comment on above: PATIENT NOT FASTINGP ERFORMED BY: SASHA [address] [id number] Information: [id number] Lymphocytes #/vol (Bld) 2.4 {x10E3/uL} Normal 0.7-3.1 [facility] Work Phone: Comment on above: PATIENT NOT FASTINGP ERFORMED BY: SASHA [address] [id number] Information: [id number] Lymphocytes/100 WBC (Bld) 27 % Normal [facility] Work Phone: Comment on above: PATIENT NOT FASTINGP ERFORMED BY: [facility]6370 [facility] [id number] Information: [id number] MCH Entitic mass (RBC) 31.9 pg Normal 26.6-33.0 [facility] Internal Medicine Work Phone: Comment on above: PATIENT NOT FASTINGP ERFORMED BY: [address] [id number] Information: [id number] MCHC mass conc (RBC) 35.5 g/dL Normal 31.5-35.7 [facility] Internal Medicine Work Phone: Comment on above: PATIENT NOT FASTINGP ERFORMED BY: [address] [id number] Information: [id number] MCV Entitic volume (RBC) 90 fL Normal 79-97 [facility] Work Phone: Comment on above: PATIENT NOT FASTINGP ERFORMED BY: [address] [id number] Information: [id number] Monocytes #/vol (Bld) 0.9 {x10E3/uL} Normal 0.1-0.9 [facility] Work Phone: Comment on above: PATIENT NOT FASTINGP ERFORMED BY: [address] [id number] Information: [id number] Monocytes/100 WBC (Bld) 10 % Normal [facility] Work Phone: Comment on above: PATIENT NOT FASTINGP ERFORMED BY: [place] 3132470 [facility] [id number] Information: [id number] Neutrophils #/vol (Bld) 5.3 {x10E3/uL} Normal 1.4-7.0 [facility] Work Phone: Comment on above: PATIENT NOT FASTINGP ERFORMED BY: SASHA LabCoshruti VargasZshasn5987 García [facility] [place] [id number] Information: [id number] Neutrophils/100 WBC (Bld) 60 % Normal [facility] Work Phone: Comment on above: PATIENT NOT FASTINGP ERFORMED BY: SASHA LabCoshruti VargasDjwrsz9979 García [facility] [id number] Information: [id number] Platelets #/vol (Bld) 279 {x10E3/uL} Normal 150-379 [facility] Work Phone: Comment on above: PATIENT NOT FASTINGP ERFORMED BY: SASHA Vargas6370 García [facility] [id number] Information: [id number] RBC #/vol (Bld) 4.54 {x10E6/uL} Normal 4.14-5.80 [facility] Work Phone: Comment on above: PATIENT NOT FASTINGP ERFORMED BY: SASHA LabCoshruti DuranJzdpdf7874 García [facility] [id number] Information: [id number] WBC #/vol (Bld) 8.9 {x10E3/uL} Normal 3.4-10.8 [facility] Internal Medicine Work Phone: Comment on above: PATIENT NOT FASTINGP ERFORMED BY: SASHA [facility] Zehwpv5256 [facility] [id number] Information: [id number] METABOLIC PANEL, COMPREHENSI VE ([id number])Ordered By: Channel Sales Manager on 02-08-2014 Albumin mass conc 4.2 g/dL Normal 3.6-4.8 Compreh ensive Internal Medicine Work Phone: Comment on above: PATIENT NOT FASTINGP ERFORMED BY: SASHA [facility] Inqitx1129 García [facility] [place] [id number] Albumin/Globulin mass ratio 1.9 {ratio} Normal 1.1-2.5 [facility] Work Phone: Comment on above: PATIENT NOT FASTINGP ERFORMED BY: CB [facility] Nfuofh4740 García RoadDublin [place] [id number] ALP enzyme act/vol 88 [iU]/L Normal 39-117 Compre [facility] Internal Medicine Work Phone: Comment on above: PATIENT NOT FASTINGP ERFORMED BY: CB [facility] Nfaljz5906 [address]í RoadDublin [place] [id number] ALT enzyme act/vol 21 [iU]/L Normal 0-44 Compre [facility] Internal Medicine Work Phone: Comment on above: PATIENT NOT FASTINGP ERFORMED BY: CB [facility] Jptuvj8617 García RoadDublin [place] [id number] AST enzyme act/vol 25 [iU]/L Normal 0-40 [facility] Work Phone: Comment on above: PATIENT NOT FASTINGP ERFORMED BY: SASHA [facility] Irorqn0755 García RoadDublin [place] [id number] Bilirubin mass conc 0.5 mg/dL Normal 0.0-1.2 Compr ensive Internal Medicine Work Phone: Comment on above: PATIENT NOT FASTINGP ERFORMED BY: SASHA [facility] Gzxhjl5903 García RoadDublin [place] [id number] Calcium mass conc 9.5 mg/dL Normal 8.6-10.2 Compreh [facility] Internal [facility] Work Phone: Comment on above: PATIENT NOT FASTINGP ERFORMED BY: CB [facility] Olllpo1396 García RoadDublin [place] [id number] Chloride molar conc 102 mmol/L Normal 97-108 Compr ensive Internal Medicine Work Phone: Comment on above: PATIENT NOT FASTINGP ERFORMED BY: CB [facility] Oozkpu0624 García RoadDublin [place] [id number] CO2 molar conc 22 mmol/L Normal 18-29 Comprehens gary Internal Medicine Work Phone: Comment on above: PATIENT NOT FASTINGP ERFORMED BY: SASHA [facility] Iohpek7408 García RoadDublin [place] [id number] Creatinine mass conc 0.92 mg/dL Normal 0.76-1.27 Comp rehensive Internal Medicine Work Phone: Comment on above: PATIENT NOT FASTINGP ERFORMED BY: SASHA Vargas6370 [address] [facility] [id number] GFR/1.73 sq M predicted among blacks CKD-EPI vol rate/area (S/P/Bld) 98 mL/min/1.73 Normal [facility] Internal Medicine Work Phone: Comment on above: PATIENT NOT FASTINGP ERFORMED BY: SASHA Duranlin6370 [address] [facility] [id number] GFR/1.73 sq M predicted among non-blacks CKD-EPI vol rate/area (S/P/Bld) 85 mL/min/1.73 Normal Comprehensiv e Internal Medicine Work Phone: Comment on above: PATIENT NOT FASTINGP ERFORMED BY: SASHA Taiwoshruti DuranEqzdup1837 [facility] [id number] Globulin mass conc (S) 2.2 g/dL Normal 1.5-4.5 Co [facility]ale[facility] Internal Medicine Work Phone: Comment on above: PATIENT NOT FASTINGP ERFORMED BY: SASHA Cristo Duranlin6370 [facility] [id number] Glucose mass conc 92 mg/dL Normal 65-99 Compreh ensive Internal Medicine Work Phone: Comment on above: PATIENT NOT FASTINGP ERFORMED BY: SASHA Cristo Duranlin6370 [facility] [id number] Potassium molar conc 5.0 mmol/L Normal 3.5-5.2 Comp rehensive Internal Medicine Work Phone: Comment on above: PATIENT NOT FASTINGP ERFORMED BY: SASHA LabDavid DuranTnijmh8890 [facility] [id number] Protein mass conc 6.4 g/dL Normal 6.0-8.5 Compreh ensive Internal Medicine Work Phone: Comment on above: PATIENT NOT FASTINGP ERFORMED BY: SASHA LabMariela Aihvnc8568 [facility] [id number] Sodium molar conc 139 mmol/L Normal 134-144 Compreh ensive Internal Medicine Work Phone: Comment on above: PATIENT NOT FASTINGP ERFORMED BY: Clean PETMer[facility], [facility]ly [facility] CenterMsdjht0401 [facility] [id number] Urea nitrogen mass conc 23 mg/dL Normal 8-27 [facility] Internal Medicine Work Phone: Comment on above: PATIENT NOT FASTINGP ERFORMED BY: Clean PETMer[facility], [facility]ly [facility] Medical CenterBwioqj4970 [facility] [id number] Urea nitrogen/Creatinine mass ratio 25 mg/mg Abnormal 10-22 [facility] Internal Medicine Work Phone: Comment on above: PATIENT NOT FASTINGP ERFORMED BY: Clean PETMer[facility], [facility]ly [facility] Medical CenterSivfjm8967 [facility] [id number] PSA (PROSTATE SPECIFIC ANTIG EN) (V76.44)Ordered By: Channel Sales Manager on 02-08-2014 Prostate specific Ag mass conc 0.7 ng/mL Normal 0.0-4.0 [facility] Internal Medicine Work Phone: Comment on above: [employer] ECLIA methodol ogy. .According to the [place] [employer], Serum PSA shoulddecrease and remain at undetectable levels after radicalprostatectomy. The AUA defines biochemical recurrence as an initialPSA value 0.2 ng/mL or greater followed by a subsequent confirmatoryPSA value 0.2 ng/mL or greater.Values obtained with different assay methods or kits cannot be usedinterchangeably. Results cannot be interpreted as absolute evidenceof the presence or absence of malignant disease. PATIENT NOT FASTINGP ERFORMED BY: Six Star EnterprisesEastern New Mexico Medical CenterHoxynm4309 [facility] [id number] Uric Acid Blood (26240)Order ed By: Channel Sales Manager on 02-08-2014 Urate mass conc 7.1 mg/dL Normal 3.7-8.6 Comprehen [facility] Internal Medicine Work Phone: Comment on above: Therapeutic target f or gout patients: <6.0 PATIENT NOT FASTINGP ERFORMED BY: Clean PETAspirus Ontonagon Hospital6370 [facility] [id number] Lab Report: LIVERon 11-22-19 14 ALK 68 U/L Normal 45-117 DS [employer] Work Phone: Office Visiton 06-01-2013 Alcoholism counseling (procedure) no Invalid Interpretation Code [employer] Work Phone: FOOT,MIN 3 VIEWSOrdered By: Channel Sales Manager on 05-19-2012 FOOT,MIN 3 VIEWS See Note Normal Comprehe nsive Internal Medicine Work Phone: Comment on above: PROCEDURE: X-RAY - L EFT FOOT CLINICAL: Male, 66 years old. Gout. Pain in the heel. TECHNIQUE: Three view(s) of the foot. COMPARISON: 07/15/2008 radiographs FINDINGS:Normal talus, calcaneus, and tarsal bones. Normal visualized subtalar, talonavicular, calcaneocuboid, tarsal andtarsometatarsal articulations. Normal metatarsi. There are periarticular erosions about the metatarsophalangeal joint ofthegreat toe. Normal tibial and fibular sesamoid bones. Normalinterphalangeal joint of the great toe. Normal phalanges of the greattoe. Normal second through fifth metatarsophalangeal joints. Normalinterphalangeal joints of the lesser toes. Normal phalanges of thelessertoes. IMPRESSION:Normal calcaneus.Periarticular erosions about the metatarsophalangeal joint of the greattoe, which may be related to a gouty arthritis. Signed:Elise Helton M.D.May 19, 2012 at 1:44:11 PM [id number] Signed [place] If you are the referring physician and would like to consult with theradiologist who provided this interpretation, please contact Nestor Gordon at [phone]. If this radiologist is unavailable,youwill be directed to another radiologist to assist. If you are a patient with a question regarding this report, pleasecontactyour referring physician directly. Professional Interpretation Provided By: [employer] Phone , These documents contain legally protected and confidential healthinformation intended only for the use of the individual or entity namedabove. If you are not the intended recipient, you are hereby notifiedthatany disclosure, copying, distribution, or other use of these documents isstrictly prohibited. If you have received this information in error,pleasenotify the sender immediately and arrange for the return or destructionofthese documents. Dictated on 05/19/12 1223 by Danie GO,YolandaieTranscribed on 05/19/12 1355 by ITS IMPORTSign by Elise Helton MD on 05/19/12 1356 Sign by: Elise Helton MD RENAL FUNCTION PANEL ([id number]) Ordered By: Channel Sales Manager on 05-19-2012 Albumin mass conc 4.2 g/dL Normal 3.6-4.8 Compreh ensive Internal Medicine Work Phone: Comment on above: PATIENT NOT FASTINGP ERFORMED BY: CB [facility] Fsnhli7687 [facility] [id number] Information: [id number] Calcium mass conc 9.4 mg/dL Normal 8.6-10.2 Compreh ensive Internal Medicine Work Phone: Comment on above: PATIENT NOT FASTINGP ERFORMED BY: CB [facility] Cxwcbs7471 García [facility] [id number] Information: [id number] Chloride molar conc 99 mmol/L Normal 97-108 Compr ehensive Internal Medicine Work Phone: Comment on above: PATIENT NOT FASTINGP ERFORMED BY: CB [facility] Alqony1826 García [facility] [id number] Information: [id number] CO2 molar conc 22 mmol/L Normal 20-32 Comprehens gary Internal Medicine Work Phone: Comment on above: PATIENT NOT FASTINGP ERFORMED BY: CB [facility] Uryevl5520 [facility] [id number] Information: [id number] Creatinine mass conc 1.01 mg/dL Normal 0.76-1.27 Comp rehensive Internal Medicine Work Phone: Comment on above: PATIENT NOT FASTINGP ERFORMED BY: SASHA [facility] Juezyi4028 [facility] [id number] Information: [id number] GFR/1.73 sq M predicted among blacks CKD-EPI vol rate/area (S/P/Bld) 89 mL/min/1.73 Normal [facility] Internal Medicine Work Phone: Comment on above: PATIENT NOT FASTINGP ERFORMED BY: [facility] Lgnzad0384 [facility] [id number] Information: [id number],[id number] GFR/1.73 sq M predicted among non-blacks CKD-EPI vol rate/area (S/P/Bld) 77 mL/min/1.73 Normal Comprehensiv e Internal Medicine Work Phone: Comment on above: PATIENT NOT FASTINGP ERFORMED BY: [facility] Udiyid9400 [facility] [id number] Information: [id number] Glucose mass conc 109 mg/dL Abnormal 65-99 Compreh ensive Internal Medicine Work Phone: Comment on above: PATIENT NOT FASTINGP ERFORMED BY: [facility] Ruqncu8383 [facility] [id number] Information: [id number] Phosphate mass conc 3.5 mg/dL Normal 2.5-4.5 Compr ehensive Internal Medicine Work Phone: Comment on above: PATIENT NOT FASTINGP ERFORMED BY: LabCoRobert Wood Johnson University HospitalFumqow6730 [facility] [id number] Information: [id number] Potassium molar conc 4.1 mmol/L Normal 3.5-5.2 Comp rehensive Internal Medicine Work Phone: Comment on above: PATIENT NOT FASTINGP ERFORMED BY: SASHA [facility] Tkwxyj2219 [facility] [id number] Information: [id number] Sodium molar conc 141 mmol/L Normal 134-144 Compreh ensive Internal Medicine Work Phone: Comment on above: PATIENT NOT FASTINGP ERFORMED BY: SASHA [facility] Opukad1134 García RoadUnc Health Pardeein [place] [id number] Information: [id number] Urea nitrogen mass conc 23 mg/dL Normal 8- [facility] Internal Medicine Work Phone: Comment on above: PATIENT NOT FASTINGP ERFORMED BY: [employer] [facility] Tvkmwi0787 García [facility] [id number] Information: [id number] Urea nitrogen/Creatinine mass ratio 23 mg/mg Abnormal 10- [facility] Internal Medicine Work Phone: Comment on above: PATIENT NOT FASTINGP ERFORMED BY: [employer] [facility] Pcpmko1609 [facility] [id number] Information: [id number] URIC ACID BLOOD ([id number])Order ed By: Channel Sales Manager on 05-19-2012 Urate mass conc 5.8 mg/dL Normal 3.7-8.6 Comprehen siv Internal Medicine Work Phone: Comment on above: Therapeutic target f or gout patients: <6.0 PATIENT NOT FASTINGP ERFORMED BY: [employer] Vbeoyb7981 GarcíaJefferson [facility] Hospitalin [place] [id number] Uric Acid, 24 hr UrineOrdere d By: Channel Sales Manager on 04-06-2012 Urate mass conc (U) 55.7 mg/dL Normal Compr [facility] Internal Medicine Work Phone: Comment on above: PERFORMED BY: Tintri6370 [facility] [id number] Information: 04/05@5AM 04/06@415AM Urate mass/time (24H U) 1002.6 {mg/24_hr} Abnormal 250.0-750.0 [facility] Internal Medicine Work Phone: Comment on above: PERFORMED BY: [employer] Iwktav5243 [facility] [id number] Information: 04/05@5AM 04/06@415AM GEMMA (ANTINUCLEAR ANTIBODY) ( [id number])Ordered By: Channel Sales Manager on 04-03-2012 Nuclear Ab Ql (S) Negative Normal Compreh ensive Internal Medicine Work Phone: Comment on above: PATIENT NOT FASTINGP ERFORMED BY: SASHA [employer] Ebmgky4687 [facility] [id number] BY: [address] [id number] C-REACTIVE PROTEIN ([id number])Or dered By: Channel Sales Manager on 04-03-2012 CRP mass conc 43.9 mg/L Abnormal 0.0-4.9 Comprehensi ve Internal Medicine Work Phone: Comment on above: PATIENT NOT FASTINGP ERFORMED BY: SASHA [employer] Okmzhi6315 [facility] [id number] BY: Clean PET[address] [id number] CCP Antibodies IgG/IgAOrdere d By: Channel Sales Manager on 04-03-2012 Cyclic citrullinated peptide IgA+IgG IA Qn <1 Normal 0-19 Comprehens gary Internal Medicine Work Phone: Comment on above: Negative <20 Weak po sitive 20 - 39 Moderate positive 40 - 59 Strong positive >59 PATIENT NOT FASTINGP ERFORMED BY: SASHA [employer] Star EnterprisesJohn [place] 9722070 [facility] [id number] BY: Clean PET[address] [id number] RHEUMATOID FACTOR-QUANT (864 31)Ordered By: Channel Sales Manager on 04-03-2012 Rheumatoid factor Qn 10.6 {IU/mL} Normal 0.0-13.9 Co mprehensive Internal Medicine Work Phone: Comment on above: PATIENT NOT FASTINGP ERFORMED BY: [employer] Star EnterprisesJohn [place] 9722070 [facility] [id number] BY: [address] [id number] SED RATE ERYTHROCYTE ([id number]) Ordered By: Channel Sales Manager on 04-03-2012 ESR Velocity (Bld) 13 mm/h Normal 0-30 Compre [facility] Internal Medicine Work Phone: Comment on above: PATIENT NOT FASTINGP ERFORMED BY: CB [facility] Ycbsxw6162 García [facility] [id number] BY: [employer] Star EnterprisesEdward [place] [address] [facility] [id number] TSH ([id number])Ordered By: Lili m Cheese Processor on 04-03-2012 Thyrotropin Qn 1.120 {uIU/mL} Normal 0.450-4.500 [facility] Internal Medicine Work Phone: Comment on above: PATIENT NOT FASTINGP ERFORMED BY: CB [facility] Crbmkd7703 García [facility] [id number] BY: [employer] [id number] Information: [id number] URIC ACID BLOOD ([id number])Order ed By: Channel Sales Manager on 04-03-2012 Urate mass conc 9.2 mg/dL Abnormal 3.7-8.6 [facility] Internal Medicine Work Phone: Comment on above: Therapeutic target f or gout patients: <6.0 PATIENT NOT FASTINGP ERFORMED BY: CB [facility] Whcpan7757 [facility] [id number] BY: [employer] [id number] CBCD,SMEAR DIFFOrdered By: Quincy ystem Cheese Processor on 04-27-2011 Band form neutrophils/100 WBC (Bld) 4 % Normal 0-5 [facility] Internal Medicine Work Phone: Eosinophils/100 WBC (Bld) 1 % Normal 0-5 [facility] Internal Medicine Work Phone: Erythrocyte distribution width Ratio (RBC) 12.4 % Normal 11.6-14.6 [facility] Internal Medicine Work Phone: Hematocrit Volume Fraction (Bld) 42.6 % Normal 40-54 [facility] Internal Medicine Work Phone: Hemoglobin mass conc (Bld) 15.0 g/dL Normal 14.0-18.0 [facility] Internal Medicine Work Phone: Lymphocytes/100 WBC (Bld) 26 % Normal 19-41 [facility] Internal Medicine Work Phone: MCH Entitic mass (RBC) 33.4 pg Abnormal 27.0-32.0 Co [facility]ale[facility] Internal Medicine Work Phone: MCHC mass conc (RBC) 35.1 g/dL Normal 32-36 Comp rehensive Internal Medicine Work Phone: MCV Entitic volume (RBC) 95.1 fL Abnormal 80-94 [facility] Internal Medicine Work Phone: Monocytes/100 WBC (Bld) 2 % Normal 0-10 [facility] Internal Medicine Work Phone: Neutrophils #/vol (Bld) 5.1 3/uL Normal 2.0-7.7 [facility] Internal Medicine Work Phone: Platelets #/vol (Bld) 252 10*3/uL Normal 150-450 Co [facility] Internal Medicine Work Phone: Platelets #/vol (Bld) SeeNote Normal Com prehensive Internal Medicine Work Phone: Comment on above: Result: ADEQUATE RBC #/vol (Bld) 4.47 {M/mm3} Abnormal 4.6-6.2 Compreh ensive Internal Medicine Work Phone: WBC #/vol (Bld) 7.2 10*3/uL Normal 4.4-11.0 Comprehe [facility] Internal Medicine Work Phone: CBCD,SMEAR DIFF SeeNote Normal Comprehen [facility] Internal Medicine Work Phone: Comment on above: Result: NORM C+C CBCD,SMEAR DIFF 67 % Normal 47-70 Comprehen [facility] Internal Medicine Work Phone: CBCD,SMEAR DIFF 100 1 Normal Comprehen [facility] Internal Medicine Work Phone: COMP METABOLICOrdered By: Lino stem Cheese Processor on 04-27-2011 Albumin mass conc 4.3 g/dL Normal 3.4-5.0 Compreh ensive Internal Medicine Work Phone: Albumin/Globulin mass ratio 1.5 {RATIO} Normal 0.9-2.4 [facility] Internal Medicine Work Phone: ALP enzyme act/vol 62 U/L Normal 50-136 Compre [facility] Internal Medicine Work Phone: ALT enzyme act/vol 26 U/L Normal 12-78 [facility] Internal Medicine Work Phone: Anion gap molar conc 8 mmol/L Normal 5-15 Comp [facility] Work Phone: AST enzyme act/vol 17 U/L Normal 15-37 Compre [facility] Internal Medicine Work Phone: Bilirubin mass conc 1.80 mg/dL Abnormal 0.00-1.00 Compr ensive Internal Medicine Work Phone: Calcium mass conc 9.0 mg/dL Normal 8.5-10.1 Compreh [facility] Internal [facility] Work Phone: Chloride molar conc 100 mmol/L Normal 98-107 Compr [facility] Internal Medicine Work Phone: CO2 molar conc 29.0 mmol/L Normal 21.0-32.0 [facility] Internal [facility] Work Phone: Creatinine mass conc 1.0 mg/dL Normal 0.8-1.3 [facility] Work Phone: GFR/1.73 sq M predicted among blacks MDRD vol rate/area (S/P/Bld) 97 mL/min/{1.73_m2} Normal Comprehensiv e Internal Medicine Work Phone: GFR/1.73 sq M.predicted MDRD vol rate/area 80 mL/min/{1.73_m2} Normal Comprehensiv e Internal Medicine Work Phone: Globulin mass conc (S) 2.8 g/dL Normal 2.7-4.2 Co [facility] Work Phone: Glucose mass conc 94 mg/dL Normal 70-110 Compreh ensive Internal Medicine Work Phone: Potassium molar conc 4.1 mmol/L Normal 3.5-5.1 [facility] Work Phone: Protein mass conc 7.1 g/dL Normal 6.4-8.2 Compreh ensive Internal Medicine Work Phone: Sodium molar conc 137 mmol/L Normal 136-145 Compreh ensive Internal Medicine Work Phone: Urea nitrogen mass conc 26 mg/dL Abnormal 7-18 [facility] Medicine Work Phone: Urea nitrogen/Creatinine mass ratio 26.0 {RATIO} Abnormal 10-20 [facility] Internal Medicine Work Phone: LIPIDOrdered By: Abdoulaye north on 04-27-2011 Cholesterol in HDL mass conc 41 mg/dL Normal Comprehensive Internal Medicine Work Phone: Comment on above: Reference Range HDL <40 mg/dL Low HDL Cholesterol HDL >or= 60 mg/dL High HDL Cholesterol Cholesterol in LDL mass conc 65 mg/dL Normal 0-130 [facility] Internal Medicine Work Phone: Cholesterol in VLDL mass conc 11 mg/dL Normal 5-40 [facility] Internal Medicine Work Phone: Cholesterol mass conc 117 mg/dL Normal Com prehensive Internal Medicine Work Phone: Comment on above: <200 mg/dL Desirable 200-240 mg/dL Borderline >240 mg/dL High Risk Triglyceride mass conc 55 mg/dL Normal Co mprehensive Internal Medicine Work Phone: Comment on above: Serum Triglycerides Reference Interval Normal <150 mg/dL Borderline high 150 - 199 mg/dL High 200 - 499 mg/dL Very High > or = 500 mg/dL MICROALBOrdered By: Abdoulaye armstrong on 04-27-2011 Creatinine mass conc Normal Comp rehensive Internal Medicine Work Phone: Creatinine mass conc 45.9 mg/dL Normal Comp rehensive Internal Medicine Work Phone: MICROALB < 5.0 Normal Comprehensive Internal Medicine Work Phone: PSA, SCREENOrdered By: Lili Blue on 04-27-2011 Prostate specific Ag mass conc 0.6 ng/mL Normal 0.0-4.0 [facility] Work Phone: Vital Signs Date Time Vital Sign Value Performing Clinician Facility 10-12-2024 09:41-0400 Body height 177.[address] Jhonatan Merino DO Work Phone: [facility] 10-12-2024 09:41-0400 Body mass index (BMI) [Ratio] 25 kg/m2 Dr. Jhonatan Merino DO Work Phone: [facility] 10-12-2024 09:41-0400 Body weight 78.[address] Jhonatan Merino DO Work Phone: [facility] 10-12-2024 09:41-0400 Diastolic blood pressure 85 mm[Hg] Dr. Jhonatan Merino DO Work Phone: [facility] 10-12-2024 09:41-0400 Heart rate 58 /min Dr. Jhonatan Merino DO Work Phone: [facility] 10-12-2024 09:41-0400 Respiratory rate 16 /min Dr. Jhonatan Merino DO Work Phone: [facility] 10-12-2024 09:41-0400 Systolic blood pressure 143 mm[Hg] Dr. Jhonatan Merino DO Work Phone: [facility] 01-20-2023 13:05-0400 Body mass index (BMI) [Ratio] 24.5 kg/m2 Dr. Jhonatan Merino Work Phone: [facility] 01-20-2023 13:05-0400 Body temperature 96.6 [degF] Dr. Jhonatan Merino Work Phone: [facility] 01-20-2023 13:05-0400 Diastolic blood pressure 70 mm[Hg] Dr. Jhonatan Merino Work Phone: [facility] 01-20-2023 13:05-0400 Heart rate 50 /min Dr. Jhonatan Merino Work Phone: [facility] 01-20-2023 13:05-0400 Respiratory rate 18 /min Dr. Jhonatan Merino Work Phone: [facility] 01-20-2023 13:05-0400 Systolic blood pressure 142 mm[Hg] Dr. Jhonatan Merino Work Phone: [facility] 12-24-2022 08:10-0400 Body height 177.[address] Jhonatan Merino Work Phone: [facility] 12-24-2022 08:10-0400 Body mass index (BMI) [Ratio] 24.5 kg/m2 Dr. Jhonatan Merino Work Phone: [facility] 12-24-2022 08:10-0400 Body temperature 97.5 [degF] Dr. Jhonatan Merino Work Phone: [facility] 12-24-2022 08:10-0400 Body weight 77.[address] Jhonatan Merino Work Phone: [facility] 12-24-2022 08:10-0400 Diastolic blood pressure 58 mm[Hg] Dr. Jhonatan Merino Work Phone: [facility] 12-24-2022 08:10-0400 Heart rate 83 /min Dr. Jhonatan Merino Work Phone: [facility] 12-24-2022 08:10-0400 Respiratory rate 22 /min Dr. Jhonatan Merino Work Phone: [facility] 12-24-2022 08:10-0400 Systolic blood pressure 106 mm[Hg] Dr. Jhonatan Merino Work Phone: [facility] 12-21-2022 14:43-0400 Body mass index (BMI) [Ratio] 23.6 kg/m2 Dr. Jhonatan Merino Work Phone: [facility] 12-21-2022 14:43-0400 Body weight 74.[address] Jhonatan Merino Work Phone: [facility] 12-21-2022 14:43-0400 Diastolic blood pressure 69 mm[Hg] Dr. Jhonatan Merino Work Phone: [facility] 12-21-2022 14:43-0400 Heart rate 87 /min Dr. Jhonatan Merino Work Phone: [facility] 12-21-2022 14:43-0400 Respiratory rate 18 /min Dr. Jhonatan Merino Work Phone: [facility] 12-21-2022 14:43-0400 SaO2% (BldA) [Mass fraction] 99 % Dr. Jhonatan Merino Work Phone: [facility] 12-21-2022 14:43-0400 Systolic blood pressure 142 mm[Hg] Dr. Jhonatan Merino Work Phone: [facility] 12-21-2022 09:37-0400 Body height 179.1 cm Ivett Alfredo INSURANCE CLAIMS SUPERVISOR.BENCH SCIENTIST Work Phone: [facility] 12-21-2022 09:37-0400 Body weight 74.84 kg Ivett Alfredo INSURANCE CLAIMS SUPERVISOR.BENCH SCIENTIST Work Phone: [facility] 12-21-2022 09:37-0400 Diastolic blood pressure 62 mm[Hg] Ivett Alfredo INSURANCE CLAIMS SUPERVISOR.BENCH SCIENTIST Work Phone: [facility] 12-21-2022 09:37-0400 Heart rate 71 /min Ivett Alfredo INSURANCE CLAIMS SUPERVISOR.BENCH SCIENTIST Work Phone: [facility] 12-21-2022 09:37-0400 SaO2% (BldA) [Mass fraction] 100 % Ivett Alfredo APRN.BENCH SCIENTIST Work Phone: [facility] 12-21-2022 09:37-0400 Systolic blood pressure 132 mm[Hg] Ivett Alfredo INSURANCE CLAIMS SUPERVISOR.BENCH SCIENTIST Work Phone: [facility] 12-20-2022 02:38-0400 Diastolic blood pressure 59 mm[Hg] [facility] [facility] 02:38-0400 Heart rate 77 /min [facility] 12-20-2022 02:38-0400 Respiratory rate 15 /min [facility] 12-20-2022 02:38-0400 SaO2% (BldA) [Mass fraction] 100 % [facility] 12-20-2022 02:38-0400 Systolic blood pressure 153 mm[Hg] [facility] 12-20-2022 00:17-0400 Body height 177.8 cm [facility] 07-31-2023 00:17-0400 Body mass index (BMI) [Ratio] 26.2 kg/m2 [facility] 12-20-2022 00:17-0400 Body temperature 98 [degF] [facility] 12-20-2022 00:17-0400 Body weight 82.7 kg [facility] 12-17-2022 15:47-0400 Diastolic blood pressure 68 mm[Hg] [facility] 12-17-2022 15:47-0400 Heart rate 57 /min [facility] 12-17-2022 15:47-0400 Systolic blood pressure 162 mm[Hg] [facility] 12-17-2022 14:53-0400 Respiratory rate 18 /min [facility] 12-17-2022 14:53-0400 SaO2% (BldA) [Mass fraction] 100 % [facility] 12-17-2022 14:15-0400 Body temperature 95.5 [degF] [facility] 12-17-2022 14:11-0400 Body height 177.8 cm [facility] 12-17-2022 14:11-0400 Body mass index (BMI) [Ratio] 25.1 kg/m2 [facility] 12-17-2022 14:11-0400 Body weight 79.4 kg [facility] 02-23-2019 08:42-0400 BMI (Body Mass Index) 23.01 kg/m2 Kathytyler Sifuentes [facility] Internal Medicine Work Phone: 02-23-2019 08:42-0400 Body Temperature 97.2 [degF] Kathy Sifuentes [facility] Internal Medicine Work Phone: Comment on above: Method: Temporal 02-23-2019 08:42-0400 Body weight 74.84 kg Kathy Maria [facility] Internal Medicine Work Phone: 02-23-2019 08:42-0400 BP Diastolic 82 mm[Hg] Kathy Sifuentes [facility] Internal Medicine Work Phone: Comment on above: Patient Position: Sitting; Cuff Location : Left Arm; Cuff Size: Large 02-23-2019 08:42-0400 BP Systolic 142 mm[Hg] Kathy Sifuentes [facility] Internal Medicine Work Phone: Comment on above: Patient Position: Sitting; Cuff Location : Left Arm; Cuff Size: Large 02-23-2019 08:42-0400 BSA (Body Surface Area) 1.94 m2 Kathy Sifuentes [facility] Internal Medicine Work Phone: 02-23-2019 08:42-0400 Height 180.34 cm Kathy Sifuentes [facility] Internal Medicine Work Phone: 02-23-2019 08:42-0400 Pulse (Heart Rate) 50 /min Kathy Sifuentes [facility] Internal Medicine Work Phone: Comment on above: Pattern: Regular 02-23-2019 08:42-0400 Pulse Oximetry 96 % Kathy Sifuentes [facility] Internal Medicine Work Phone: Comment on above: Room air 02-23-2019 08:42-0400 Respiratory Rate 16 /min Kathy Sifuentes [facility] Internal Medicine Work Phone: Comment on above: Pattern: Unlabored 02-13-2019 13:14-0400 BMI (Body Mass Index) 23.01 kg/m2 Kathy Sifuentes [facility] Internal Medicine Work Phone: 02-13-2019 13:14-0400 Body Temperature 97.1 [degF] Kathy Sifuentes [facility] Internal Medicine Work Phone: Comment on above: Method: Temporal 02-13-2019 13:14-0400 Body weight 74.84 kg Kathy Sifuentes [facility] Internal Medicine Work Phone: 02-13-2019 13:14-0400 BP Diastolic 68 mm[Hg] Kathy Sifuentes [facility] Internal Medicine Work Phone: Comment on above: Patient Position: Sitting; Cuff Location : Left Arm; Cuff Size: Standard 02-13-2019 13:14-0400 BP Systolic 150 mm[Hg] Kathy Sifuentes [facility] Internal Medicine Work Phone: Comment on above: Patient Position: Sitting; Cuff Location : Left Arm; Cuff Size: Standard 02-13-2019 13:14-0400 BSA (Body Surface Area) 1.94 m2 Kathy Sifuentes [facility] Internal Medicine Work Phone: 02-13-2019 13:14-0400 Height 180.34 cm Kathy Sifuentes [facility] Internal Medicine Work Phone: 02-13-2019 13:14-0400 Pulse (Heart Rate) 56 /min Kathy Sifuentes [facility] Internal Medicine Work Phone: Comment on above: Pattern: Regular 02-13-2019 13:14-0400 Pulse Oximetry 97 % Kathy Sfiuentes [facility] Internal Medicine Work Phone: Comment on above: Room air 02-13-2019 13:14-0400 Respiratory Rate 16 /min Kathy Sifuentes [facility] Internal Medicine Work Phone: Comment on above: Pattern: Unlabored 01-24-2019 07:48-0400 BMI (Body Mass Index) 23.44 kg/m2 Kathy Sifuentes [facility] Internal Medicine Work Phone: 01-24-2019 07:48-0400 Body Temperature 97.8 [degF] Kathy Sifuentes [facility] Internal Medicine Work Phone: Comment on above: Method: Temporal 01-24-2019 07:48-0400 Body weight 76.23 kg Kathy Sifuentes [facility] Internal Medicine Work Phone: 01-24-2019 07:48-0400 BP Diastolic 78 mm[Hg] Kathy Sifuentes [facility] Internal Medicine Work Phone: Comment on above: Patient Position: Sitting; Cuff Location : Left Arm; Cuff Size: Standard 01-24-2019 07:48-0400 BP Systolic 132 mm[Hg] Kathy Sifuentes [facility] Internal Medicine Work Phone: Comment on above: Patient Position: Sitting; Cuff Location : Left Arm; Cuff Size: Standard 01-24-2019 07:48-0400 BSA (Body Surface Area) 1.96 m2 Kathy Sifuentes [facility] Internal Medicine Work Phone: 01-24-2019 07:48-0400 Height 180.34 cm Kathy Sifuentes [facility] Internal Medicine Work Phone: 01-24-2019 07:48-0400 Pulse (Heart Rate) 56 /min Kathy Sifuentes [facility] Internal Medicine Work Phone: Comment on above: Pattern: Regular 01-24-2019 07:48-0400 Pulse Oximetry 97 % Kathy Sifuentes [facility] Internal Medicine Work Phone: Comment on above: Room air 01-24-2019 07:48-0400 Respiratory Rate 16 /min Kathy Sifuentes [facility] Internal Medicine Work Phone: Comment on above: Pattern: Unlabored 01-10-2019 07:41-0400 BMI (Body Mass Index) 23.16 kg/m2 Kathy Sifuentes [facility] Internal Medicine Work Phone: 01-10-2019 07:41-0400 Body Temperature 97.7 [degF] Kathy Sifuentes [facility] Internal Medicine Work Phone: Comment on above: Method: Temporal 01-10-2019 07:41-0400 Body weight 75.31 kg Kathy Sifuentes [facility] Internal Medicine Work Phone: 01-10-2019 07:41-0400 BP Diastolic 76 mm[Hg] Kathy Sifuentes [facility] Internal Medicine Work Phone: Comment on above: Patient Position: Sitting; Cuff Location : Left Arm; Cuff Size: Standard 01-10-2019 07:41-0400 BP Systolic 122 mm[Hg] Kathy Sifuentes [facility] Internal Medicine Work Phone: Comment on above: Patient Position: Sitting; Cuff Location : Left Arm; Cuff Size: Standard 01-10-2019 07:41-0400 BSA (Body Surface Area) 1.95 m2 Kathy Sifuentes [facility] Internal Medicine Work Phone: 01-10-2019 07:41-0400 Height 180.34 cm Kathy Sifuentes [facility] Internal Medicine Work Phone: 01-10-2019 07:41-0400 Pulse (Heart Rate) 64 /min Kathy Sifuentes [facility] Internal Medicine Work Phone: Comment on above: Pattern: Regular 01-10-2019 07:41-0400 Pulse Oximetry 97 % Kathy Sifuentes [facility] Internal Medicine Work Phone: Comment on above: Room air 01-10-2019 07:41-0400 Respiratory Rate 16 /min Kathy Sifuentes [facility] Internal Medicine Work Phone: Comment on above: Pattern: Unlabored 09-04-2018 08:47-0400 BMI (Body Mass Index) 24.97 kg/m2 Kathy Sifuentes [facility] Internal Medicine Work Phone: 09-04-2018 08:47-0400 Body Temperature 97.4 [degF] Kathy Sifuentes [facility] Internal Medicine Work Phone: Comment on above: Method: Temporal 09-04-2018 08:47-0400 Body weight 81.21 kg Kathy Sifuentes [facility] Internal Medicine Work Phone: 09-04-2018 08:47-0400 BP Diastolic 82 mm[Hg] Kathy Sifuentes [facility] Internal Medicine Work Phone: Comment on above: Patient Position: Sitting; Cuff Location : Left Arm; Cuff Size: Standard 09-04-2018 08:47-0400 BP Systolic 142 mm[Hg] Kathy Sifuentes [facility] Internal Medicine Work Phone: Comment on above: Patient Position: Sitting; Cuff Location : Left Arm; Cuff Size: Standard 09-04-2018 08:47-0400 BSA (Body Surface Area) 2.01 m2 Kathy Sifuentes [facility] Internal Medicine Work Phone: 09-04-2018 08:47-0400 Height 180.34 cm Kathy Sifuentes [facility] Internal Medicine Work Phone: 09-04-2018 08:47-0400 Pulse (Heart Rate) 58 /min Kathy Sifuentes [facility] Internal Medicine Work Phone: Comment on above: Pattern: Regular 09-04-2018 08:47-0400 Pulse Oximetry 96 % Kathy Sifuentes [facility] Internal Medicine Work Phone: Comment on above: Room air 09-04-2018 08:47-0400 Respiratory Rate 17 /min Kathy Sifuentes [facility] Internal Medicine Work Phone: Comment on above: Pattern: Unlabored 09-04-2018 08:47-0400 Weight 81.21 kg Kathy Sifuentes [facility] Internal Medicine Work Phone: 08-16-2018 08:54-0400 BMI (Body Mass Index) 25.11 kg/m2 Kathy Sifuentes [facility] Internal Medicine Work Phone: 08-16-2018 08:54-0400 Body Temperature 96.9 [degF] Kathy Sifuentes [facility] Internal Medicine Work Phone: Comment on above: Method: Temporal 08-16-2018 08:54-0400 Body weight 81.67 kg Kathy Sifuentes [facility] Internal Medicine Work Phone: 08-16-2018 08:54-0400 BP Diastolic 72 mm[Hg] Kathy Sifuentes [facility] Internal Medicine Work Phone: Comment on above: Patient Position: Sitting; Cuff Location : Left Arm; Cuff Size: Standard 08-16-2018 08:54-0400 BP Systolic 120 mm[Hg] Kathy Sifuentes [facility] Internal Medicine Work Phone: Comment on above: Patient Position: Sitting; Cuff Location : Left Arm; Cuff Size: Standard 08-16-2018 08:54-0400 BSA (Body Surface Area) 2.02 m2 Kathy Sifuentes [facility] Internal Medicine Work Phone: 08-16-2018 08:54-0400 Height 180.34 cm Kathy Sifuentes [facility] Internal Medicine Work Phone: 08-16-2018 08:54-0400 Pulse (Heart Rate) 65 /min Kathy Sifuentes [facility] Internal Medicine Work Phone: Comment on above: Pattern: Regular 08-16-2018 08:54-0400 Pulse Oximetry 97 % Kathy Sifuentes [facility] Internal Medicine Work Phone: Comment on above: Room air 08-16-2018 08:54-0400 Respiratory Rate 17 /min Kathy Sifuentes [facility] Internal Medicine Work Phone: Comment on above: Pattern: Unlabored 08-16-2018 08:54-0400 Weight 81.67 kg Kathy Sifuentes [facility] Internal Medicine Work Phone: 02-24-2018 14:21-0400 BMI (Body Mass Index) 24.97 kg/m2 Kathy Sifuentes [facility] Internal Medicine Work Phone: 02-24-2018 14:21-0400 Body Temperature 98.2 [degF] Kathy Sifuentes [facility] Internal Medicine Work Phone: Comment on above: Method: Temporal 02-24-2018 14:21-0400 Body weight 81.19 kg Kathy Sifuentes [facility] Internal Medicine Work Phone: 02-24-2018 14:21-0400 BP Diastolic 78 mm[Hg] Kathy Sifuentes [facility] Internal Medicine Work Phone: Comment on above: Patient Position: Sitting; Cuff Location : Left Arm; Cuff Size: Standard 02-24-2018 14:21-0400 BP Systolic 130 mm[Hg] Kathy Sifuentes [facility] Internal Medicine Work Phone: Comment on above: Patient Position: Sitting; Cuff Location : Left Arm; Cuff Size: Standard 02-24-2018 14:21-0400 BSA (Body Surface Area) 2.01 m2 Kathy Sifuentes [facility] Internal Medicine Work Phone: 02-24-2018 14:21-0400 Height 180.34 cm Kathy Sifuentes [facility] Internal Medicine Work Phone: 02-24-2018 14:21-0400 Pulse (Heart Rate) 78 /min Kathy Sifuentes [facility] Internal Medicine Work Phone: Comment on above: Pattern: Regular 02-24-2018 14:21-0400 Pulse Oximetry 98 % Kathy Sifuentes [facility] Internal Medicine Work Phone: Comment on above: Room air 02-24-2018 14:21-0400 Respiratory Rate 16 /min Kathy Sifuentes [facility] Internal Medicine Work Phone: Comment on above: Pattern: Unlabored 02-24-2018 14:21-0400 Weight 81.19 kg Kathy Sifuentes [facility] Internal Medicine Work Phone: 02-17-2018 11:15-0400 BMI (Body Mass Index) 24.97 kg/m2 Kathy Sifuentes [facility] Internal Medicine Work Phone: 02-17-2018 11:15-0400 Body Temperature 96.8 [degF] Kathy Sifuentes [facility] Internal Medicine Work Phone: Comment on above: Method: Temporal 02-17-2018 11:15-0400 Body weight 81.19 kg Kathy Sifuentes [facility] Internal Medicine Work Phone: 02-17-2018 11:15-0400 BP Diastolic 88 mm[Hg] Kathy Sifuentes [facility] Internal Medicine Work Phone: Comment on above: Patient Position: Sitting; Cuff Location : Left Arm; Cuff Size: Standard 02-17-2018 11:15-0400 BP Systolic 128 mm[Hg] Kathy Sifuentes [facility] Internal Medicine Work Phone: Comment on above: Patient Position: Sitting; Cuff Location : Left Arm; Cuff Size: Standard 02-17-2018 11:15-0400 BSA (Body Surface Area) 2.01 m2 Kathy Sifuentes [facility] Internal Medicine Work Phone: 02-17-2018 11:15-0400 Height 180.34 cm Kathy Sifuentes [facility] Internal Medicine Work Phone: 02-17-2018 11:15-0400 Pulse (Heart Rate) 58 /min Kathy Sifuentes [facility] Internal Medicine Work Phone: Comment on above: Pattern: Regular 02-17-2018 11:15-0400 Pulse Oximetry 97 % Kathy Sifuentes [facility] Internal Medicine Work Phone: Comment on above: Room air 02-17-2018 11:15-0400 Respiratory Rate 17 /min Kathy Sifuentes [facility] Internal Medicine Work Phone: Comment on above: Pattern: Unlabored 02-17-2018 11:15-0400 Weight 81.19 kg Kathy Sifuentes [facility] Internal Medicine Work Phone: 11-30-2017 10:23-0400 BMI (Body Mass Index) 24.7 kg/m2 Kathy Paul [facility] Internal Medicine Work Phone: 11-30-2017 10:23-0400 Body Temperature 97.2 [degF] Kathy Sifuentes [facility] Internal Medicine Work Phone: 11-30-2017 10:23-0400 Body weight 80.34 kg Kathy Sifuentes [facility] Internal Medicine Work Phone: 11-30-2017 10:23-0400 BP Diastolic 76 mm[Hg] Kathy Sifuentes [facility] Internal Medicine Work Phone: Comment on above: Patient Position: Sitting; Cuff Location : Left Arm; Cuff Size: Standard 11-30-2017 10:23-0400 BP Systolic 122 mm[Hg] Kathy Sifuentes [facility] Internal Medicine Work Phone: Comment on above: Patient Position: Sitting; Cuff Location : Left Arm; Cuff Size: Standard 11-30-2017 10:230400 BSA (Body Surface Area) 2 m2 Kathy Sifuentes [facility] Internal Medicine Work Phone: 11-30-2017 [id number] Height 180.34 cm Kathy Sifuentes [facility] Internal Medicine Work Phone: 11-30-2017 10:23-0400 Pulse (Heart Rate) 52 /min Kathy Sifuentes [facility] Internal Medicine Work Phone: Comment on above: Pattern: Regular 11-30-2017 10:23-0400 Pulse Oximetry 99 % Kathy Sifuentes [facility] Internal Medicine Work Phone: Comment on above: Room air 11-30-2017 10:23-0400 Respiratory Rate 17 /min Kathy Sifuentes [facility] Internal Medicine Work Phone: Comment on above: Pattern: Unlabored 11-30-2017 10:23-0400 Weight 80.34 kg Kathy Sifuentes [facility] Internal Medicine Work Phone: 08-30-2017 10:13-0400 BMI (Body Mass Index) 24.69 kg/m2 Kathy Paul [facility] Internal Medicine Work Phone: 08-30-2017 10:13-0400 Body Temperature 97.2 [degF] Kathy S[facility]es [facility] Work Phone: Comment on above: Method: Temporal 08-30-2017 10:130400 Body weight 80.29 kg Kathy Napoles Internal Medicine Work Phone: 08-30-2017 10:13-0400 BP Diastolic 78 mm[Hg] Kathy Sifuentes [facility] Internal Medicine Work Phone: Comment on above: Patient Position: Sitting; Cuff Location : Left Arm; Cuff Size: Standard 08-30-2017 10:13-0400 BP Systolic 118 mm[Hg] Kathy Napoles Internal Medicine Work Phone: Comment on above: Patient Position: Sitting; Cuff Location : Left Arm; Cuff Size: Standard 08-30-2017 10:130400 BSA (Body Surface Area) 2 m2 Kathy Sifuentes [facility] Internal Medicine Work Phone: 08-30-2017 10:13-0400 Height 180.34 cm Kathy Sifuentes [facility] Work Phone: 08-30-2017 10:13-0400 Pulse (Heart Rate) 54 /min Kathy Napoles Internal Medicine Work Phone: Comment on above: Pattern: Regular 08-30-2017 10:13-0400 Pulse Oximetry 98 % Kathy Sifuentes [facility] Internal Medicine Work Phone: Comment on above: Room air 08-30-2017 10:13-0400 Respiratory Rate 16 /min Kathy Napoles Internal Medicine Work Phone: Comment on above: Pattern: Unlabored 08-30-2017 10:13-0400 Weight 80.29 kg Kathy Napoles Internal Medicine Work Phone: 04-19-2017 16:25-0500 BMI (Body Mass Index) 23.85 kg/m2 [facility] Work Phone: 04-19-2017 16:25-0500 BP Diastolic 70 mm[Hg] [facility] Work Phone: 04-19-2017 16:25-0500 BP Systolic 140 mm[Hg] [facility] Work Phone: 04-19-2017 16:25-0500 Height 182.88 cm [facility] Work Phone: 04-19-2017 16:25-0500 Pulse (Heart Rate) 60 /min [facility] Work Phone: 04-19-2017 16:25-0500 Respiratory Rate 20 /min [facility] Work Phone: 04-19-2017 16:25-0500 Weight 79.79 kg [facility] Work Phone: 09-10-2016 14:20-0400 BMI (Body Mass Index) 24.69 kg/m2 Kathy Sifuentes [facility] Internal Medicine Work Phone: 09-10-2016 14:20-0400 Body Temperature 97.3 [degF] Kathy Sifuentes [facility] Internal Medicine Work Phone: 09-10-2016 14:20-0400 Body weight 80.29 kg Kathy Sifuentes [facility] Internal Medicine Work Phone: 09-10-2016 14:20-0400 BP Diastolic 82 mm[Hg] Kathy Sifuentes [facility] Internal Medicine Work Phone: Comment on above: Patient Position: Sitting; Cuff Location : Left Arm; Cuff Size: Standard 09-10-2016 14:20-0400 BP Systolic 124 mm[Hg] Kathy Sifuentes [facility] Internal Medicine Work Phone: Comment on above: Patient Position: Sitting; Cuff Location : Left Arm; Cuff Size: Standard 09-10-2016 14:20-0400 BSA (Body Surface Area) 2 m2 Kathy Sifuentes [facility] Internal Medicine Work Phone: 09-10-2016 14:20-0400 Height 180.34 cm [facility] Work Phone: 09-10-2016 14:20-0400 Pulse (Heart Rate) 63 /min Kathy Sifuentes [facility] Internal Medicine Work Phone: Comment on above: Pattern: Regular 09-10-2016 14:20-0400 Pulse Oximetry 98 % Kathy Sifuentes [facility] Internal Medicine Work Phone: Comment on above: Room air 09-10-2016 14:20-0400 Respiratory Rate 18 /min Kathy Sifuentes [facility] Internal Medicine Work Phone: Comment on above: Pattern: Unlabored 09-10-2016 14:20-0400 Weight 80.29 kg Kathy Sifuentes [facility] Internal Medicine Work Phone: 08-24-2016 14:03-0400 BMI (Body Mass Index) 24.41 kg/m2 Kathy Sifuentes [facility] Internal Medicine Work Phone: 08-24-2016 14:03-0400 Body Temperature 98.5 [degF] Kathy Sifuentes [facility] Internal Medicine Work Phone: 08-24-2016 14:03-0400 Body weight 79.38 kg Kathy Sifuentes [facility] Internal Medicine Work Phone: 08-24-2016 14:03-0400 BP Diastolic 82 mm[Hg] Kathy Sifuentes [facility] Internal Medicine Work Phone: Comment on above: Patient Position: Sitting; Cuff Location : Left Arm; Cuff Size: Standard 08-24-2016 14:03-0400 BP Systolic 148 mm[Hg] Kathy Sifuentes [facility] Internal Medicine Work Phone: Comment on above: Patient Position: Sitting; Cuff Location : Left Arm; Cuff Size: Standard 08-24-2016 14:03-0400 BSA (Body Surface Area) 1.99 m2 Kathy Sifuentes [facility] Internal Medicine Work Phone: 08-24-2016 14:03-0400 Height 180.34 cm Kathy Sifuentes [facility] Internal Medicine Work Phone: 08-24-2016 14:03-0400 Pulse (Heart Rate) 108 /min Kathy Sifuentes [facility] Internal Medicine Work Phone: Comment on above: Pattern: Regular 08-24-2016 14:03-0400 Pulse Oximetry 98 % Kathy Sifuentes [facility] Internal Medicine Work Phone: Comment on above: Room air 08-24-2016 14:03-0400 Respiratory Rate 17 /min Kathy Sifuentes [facility] Internal Medicine Work Phone: Comment on above: Pattern: Unlabored 08-24-2016 14:03-0400 Weight 79.38 kg Kathy Sifuentes [facility] Internal Medicine Work Phone: 05-07-2016 13:42-0500 BMI (Body Mass Index) 24.69 kg/m2 Kathy Sifuentes [facility] Internal Medicine Work Phone: 05-07-2016 13:42-0500 Body weight 80.29 kg Kathy Sifuentes [facility] Internal Medicine Work Phone: 05-07-2016 13:42-0500 BP Diastolic 60 mm[Hg] Kathy Sifuentes [facility] Internal Medicine Work Phone: Comment on above: Patient Position: Sitting; Cuff Location : Left Arm; Cuff Size: Standard 05-07-2016 13:42-0500 BP Systolic 130 mm[Hg] Kathy Sifuentes [facility] Internal Medicine Work Phone: Comment on above: Patient Position: Sitting; Cuff Location : Left Arm; Cuff Size: Standard 05-07-2016 13:42-0500 BSA (Body Surface Area) 2 m2 Kathy Sifuentes [facility] Internal Medicine Work Phone: 05-07-2016 13:42-0500 Height 180.34 cm Kathy Sifuentes [facility] Internal Medicine Work Phone: 05-07-2016 13:42-0500 Pulse (Heart Rate) 57 /min Kathy Sifuentes [facility] Internal Medicine Work Phone: Comment on above: Pattern: Regular 05-07-2016 13:42-0500 Pulse Oximetry 98 % Kathy Sifuentes [facility] Internal Medicine Work Phone: Comment on above: Room air 05-07-2016 13:42-0500 Respiratory Rate 16 /min Kathy Sifuentes [facility] Internal Medicine Work Phone: Comment on above: Pattern: Unlabored 05-07-2016 13:42-0500 Weight 80.29 kg Kathy Sifuentes [facility] Internal Medicine Work Phone: 05-04-2016 11:01-0500 BMI (Body Mass Index) 24.69 kg/m2 Kathy Sifuentes [facility] Internal Medicine Work Phone: 05-04-2016 11:01-0500 Body Temperature 98.2 [degF] Kathy Sifuentes [facility] Internal Medicine Work Phone: 05-04-2016 11:01-0500 Body weight 80.29 kg Kathy Sifuentes [facility] Internal Medicine Work Phone: 05-04-2016 11:01-0500 BP Diastolic 80 mm[Hg] Kathy Sifuentes [facility] Internal Medicine Work Phone: Comment on above: Patient Position: Sitting; Cuff Location : Left Arm; Cuff Size: Standard 05-04-2016 11:01-0500 BP Systolic 124 mm[Hg] Kathy Sifuentes [facility] Internal Medicine Work Phone: Comment on above: Patient Position: Sitting; Cuff Location : Left Arm; Cuff Size: Standard 05-04-2016 11:01-0500 BSA (Body Surface Area) 2 m2 Kathy Sifuentes [facility] Internal Medicine Work Phone: 05-04-2016 11:01-0500 Height 180.34 cm Kathy Sifuentes [facility] Internal Medicine Work Phone: 05-04-2016 11:01-0500 Pulse (Heart Rate) 69 /min Kathy Sifuentes [facility] Internal Medicine Work Phone: Comment on above: Pattern: Regular 05-04-2016 11:01-0500 Pulse Oximetry 98 % Kathy Sifuentes [facility] Internal Medicine Work Phone: Comment on above: Room air 05-04-2016 11:01-0500 Respiratory Rate 16 /min Kathy Sifuentes [facility] Internal Medicine Work Phone: Comment on above: Pattern: Unlabored 05-04-2016 11:01-0500 Weight 80.29 kg Kathy Sifuentes [facility] Internal Medicine Work Phone: 04-06-2016 15:270500 BSA (Body Surface Area) 2.01 m2 Laurence Rios [facility] Work Phone: 03-19-2016 13:24-0400 BMI (Body Mass Index) 24.69 kg/m2 Kathy Sifuentes [facility] Internal Medicine Work Phone: 03-19-2016 13:24-0400 Body Temperature 98.2 [degF] Kathy Sifuentes [facility] Internal Medicine Work Phone: 03-19-2016 13:24-0400 Body weight 80.29 kg Kathy Sifuentes [facility] Internal Medicine Work Phone: 03-19-2016 13:24-0400 BP Diastolic 82 mm[Hg] Kathy Sifuentes [facility] Internal Medicine Work Phone: Comment on above: Patient Position: Sitting; Cuff Location : Left Arm; Cuff Size: Standard 03-19-2016 13:24-0400 BP Systolic 126 mm[Hg] Kathy Sifuentes [facility] Internal Medicine Work Phone: Comment on above: Patient Position: Sitting; Cuff Location : Left Arm; Cuff Size: Standard 03-19-2016 13:24-0400 BSA (Body Surface Area) 2 m2 Kathy Sifuentes [facility] Internal Medicine Work Phone: 03-19-2016 13:24-0400 Height 180.34 cm Kathy Sifuentes [facility] Internal Medicine Work Phone: 03-19-2016 13:24-0400 Pulse (Heart Rate) 50 /min Kathy Sifuentes [facility] Internal Medicine Work Phone: Comment on above: Pattern: Regular 03-19-2016 13:24-0400 Pulse Oximetry 97 % Kathy Sifuentes [facility] Internal Medicine Work Phone: Comment on above: Room air 03-19-2016 13:24-0400 Respiratory Rate 16 /min Kathy Sifuentes [facility] Internal Medicine Work Phone: Comment on above: Pattern: Unlabored 03-19-2016 13:24-0400 Weight 80.29 kg Kathy Sifuentes [facility] Internal Medicine Work Phone: 01-28-2016 14:44-0400 BMI (Body Mass Index) 24.69 kg/m2 Kathy Sifuentes [facility] Internal Medicine Work Phone: 01-28-2016 14:44-0400 Body Temperature 98.2 [degF] Kathy Sifuentes [facility] Internal Medicine Work Phone: 01-28-2016 14:44-0400 Body weight 80.29 kg Kathy Sifuentes [facility] Internal Medicine Work Phone: 01-28-2016 14:44-0400 BP Diastolic 80 mm[Hg] Kathy Sifuentes [facility] Internal Medicine Work Phone: Comment on above: Patient Position: Sitting; Cuff Location : Left Arm; Cuff Size: Standard 01-28-2016 14:44-0400 BP Systolic 126 mm[Hg] Kathy Sifuentes [facility] Internal Medicine Work Phone: Comment on above: Patient Position: Sitting; Cuff Location : Left Arm; Cuff Size: Standard 01-28-2016 14:44-0400 BSA (Body Surface Area) 2 m2 Kathy Sifuentes [facility] Internal Medicine Work Phone: 01-28-2016 14:44-0400 Height 180.34 cm Kathy Sifuentes [facility] Internal Medicine Work Phone: 01-28-2016 14:44-0400 Pulse (Heart Rate) 66 /min Kathy Sifuentes [facility] Internal Medicine Work Phone: Comment on above: Pattern: Regular 01-28-2016 14:44-0400 Pulse Oximetry 98 % Kathy Sifuentes [facility] Internal Medicine Work Phone: Comment on above: Room air 01-28-2016 14:44-0400 Respiratory Rate 17 /min Kathy Sifuentes [facility] Internal Medicine Work Phone: Comment on above: Pattern: Unlabored 01-28-2016 14:44-0400 Weight 80.29 kg Kathy Sifuentes [facility] Internal Medicine Work Phone: 01-12-2016 16:13-0400 BMI (Body Mass Index) 24.69 kg/m2 [facility] Work Phone: 01-12-2016 16:13-0400 Body Temperature 98 [degF] Kathy Sifuentes [facility] Internal Medicine Work Phone: 01-12-2016 16:13-0400 Body weight 80.29 kg Kathy Sifuentes [facility] Internal Medicine Work Phone: 01-12-2016 16:13-0400 BP Diastolic 82 mm[Hg] Kathy Sifuentes [facility] Internal Medicine Work Phone: Comment on above: Patient Position: Sitting; Cuff Location : Left Arm; Cuff Size: Standard 01-12-2016 16:13-0400 BP Systolic 140 mm[Hg] Kathy Sifuentes [facility] Internal Medicine Work Phone: Comment on above: Patient Position: Sitting; Cuff Location : Left Arm; Cuff Size: Standard 01-12-2016 16:13-0400 BSA (Body Surface Area) 2 m2 Kathy Sifuentes [facility] Internal Medicine Work Phone: 01-12-2016 16:13-0400 Height 180.34 cm Kathy Sifuentes [facility] Internal Medicine Work Phone: 01-12-2016 16:13-0400 Pulse (Heart Rate) 57 /min Kathy Sifuentes [facility] Internal Medicine Work Phone: Comment on above: Pattern: Regular 01-12-2016 16:13-0400 Pulse Oximetry 97 % Kathy Sifuentes [facility] Internal Medicine Work Phone: Comment on above: Room air 01-12-2016 16:13-0400 Respiratory Rate 16 /min Kathy Sifuentes [facility] Internal Medicine Work Phone: Comment on above: Pattern: Unlabored 01-12-2016 16:13-0400 Weight 80.29 kg Kathy Sifuentes [facility] Internal Medicine Work Phone: 12-12-2015 08:29-0400 BMI (Body Mass Index) 24.27 kg/m2 Kathy Paul gary Internal Medicine Work Phone: 12-12-2015 08:29-0400 Body Temperature 97.4 [degF] Kathy Sifuentes [facility] Internal Medicine Work Phone: 12-12-2015 08:29-0400 Body weight 78.93 kg Kathy Sifuentes [facility] Internal Medicine Work Phone: 12-12-2015 08:29-0400 BP Diastolic 78 mm[Hg] Kathy Sifuentes [facility] Internal Medicine Work Phone: Comment on above: Patient Position: Sitting; Cuff Location : Left Arm; Cuff Size: Standard 12-12-2015 08:29-0400 BP Systolic 122 mm[Hg] Kathy Sifuentes [facility] Internal Medicine Work Phone: Comment on above: Patient Position: Sitting; Cuff Location : Left Arm; Cuff Size: Standard 12-12-2015 08:29-0400 BSA (Body Surface Area) 1.99 m2 Kathy Sifuentes [facility] Internal Medicine Work Phone: 12-12-2015 08:29-0400 Height 180.34 cm Kathy Sifuentes [facility] Internal Medicine Work Phone: 12-12-2015 08:29-0400 Pulse (Heart Rate) 60 /min Kathy Sifuentes [facility] Internal Medicine Work Phone: Comment on above: Pattern: Regular 12-12-2015 08:29-0400 Pulse Oximetry 97 % Kathy Sifuentes [facility] Internal Medicine Work Phone: Comment on above: Room air 12-12-2015 08:29-0400 Weight 78.93 kg Kathy Sifuentes [facility] Internal Medicine Work Phone: 09-12-2015 08:03-0400 BMI (Body Mass Index) 25.1 kg/m2 Kathy Paul gary Internal Medicine Work Phone: 09-12-2015 08:03-0400 Body Temperature 97.2 [degF] Kathy Sifuentes [facility] Internal Medicine Work Phone: 09-12-2015 08:03-0400 Body weight 81.65 kg Kathy Sifuentes [facility] Internal Medicine Work Phone: 09-12-2015 08:03-0400 BP Diastolic 84 mm[Hg] Kathy Sifuentes [facility] Internal Medicine Work Phone: Comment on above: Patient Position: Sitting; Cuff Location : Left Arm; Cuff Size: Standard 09-12-2015 08:03-0400 BP Systolic 132 mm[Hg] Kathy Sifuentes [facility] Internal Medicine Work Phone: Comment on above: Patient Position: Sitting; Cuff Location : Left Arm; Cuff Size: Standard 09-12-2015 08:03-0400 BSA (Body Surface Area) 2.02 m2 Kathy Sifuentes [facility] Internal Medicine Work Phone: 09-12-2015 08:03-0400 Height 180.34 cm Kathy Sifuentes [facility] Internal Medicine Work Phone: 09-12-2015 08:03-0400 Pulse (Heart Rate) 65 /min Kathy Sifuentes [facility] Internal Medicine Work Phone: Comment on above: Pattern: Regular 09-12-2015 08:03-0400 Pulse Oximetry 97 % Kathy Sifuentes [facility] Internal Medicine Work Phone: Comment on above: Room air 09-12-2015 08:03-0400 Respiratory Rate 16 /min Kathy Sifuentes [facility] Internal Medicine Work Phone: Comment on above: Pattern: Unlabored 09-12-2015 08:03-0400 Weight 81.65 kg Kathy Sifuentes [facility] Internal Medicine Work Phone: 09-05-2015 08:28-0400 BMI (Body Mass Index) 25.1 kg/m2 Kathy Sifuentes [facility] Internal Medicine Work Phone: 09-05-2015 08:28-0400 Body Temperature 97.3 [degF] Kathy Sifuentes [facility] Internal Medicine Work Phone: Comment on above: Method: Tympanic 09-05-2015 08:28-0400 Body weight 81.65 kg Kathy Sifuentes [facility] Internal Medicine Work Phone: 09-05-2015 08:28-0400 BP Diastolic 72 mm[Hg] Kathy Sifuentes [facility] Internal Medicine Work Phone: Comment on above: Patient Position: Sitting; Cuff Location : Left Arm; Cuff Size: Standard 09-05-2015 08:28-0400 BP Systolic 120 mm[Hg] Kathy Sifuentes [facility] Internal Medicine Work Phone: Comment on above: Patient Position: Sitting; Cuff Location : Left Arm; Cuff Size: Standard 09-05-2015 08:28-0400 BSA (Body Surface Area) 2.02 m2 Kathy Sifuentes [facility] Internal Medicine Work Phone: 09-05-2015 08:28-0400 Height 180.34 cm Kathy Sifuentes [facility] Internal Medicine Work Phone: 09-05-2015 08:28-0400 Pulse (Heart Rate) 59 /min Kathy Sifuentes [facility] Internal Medicine Work Phone: Comment on above: Pattern: Regular 09-05-2015 08:28-0400 Pulse Oximetry 96 % Kathy Sifuentes [facility] Internal Medicine Work Phone: Comment on above: Room air 09-05-2015 08:28-0400 Respiratory Rate 18 /min Kathy Sifuentes [facility] Internal Medicine Work Phone: Comment on above: Pattern: Unlabored 09-05-2015 08:28-0400 Weight 81.65 kg Kathy Sifuentes [facility] Internal Medicine Work Phone: 08-26-2015 15:35-0400 BMI (Body Mass Index) 25.1 kg/m2 Kathy Sifuentes [facility] Internal Medicine Work Phone: 08-26-2015 15:35-0400 Body Temperature 97.6 [degF] Kathy Sifuentes [facility] Internal Medicine Work Phone: Comment on above: Method: Temporal 08-26-2015 15:35-0400 Body weight 81.65 kg Kathy Sifuentes [facility] Internal Medicine Work Phone: 08-26-2015 15:35-0400 BP Diastolic 80 mm[Hg] Kathy Sifuentes [facility] Internal Medicine Work Phone: Comment on above: Patient Position: Sitting; Cuff Location : Left Arm; Cuff Size: Standard 08-26-2015 15:35-0400 BP Systolic 126 mm[Hg] Kathy Sifuentes [facility] Internal Medicine Work Phone: Comment on above: Patient Position: Sitting; Cuff Location : Left Arm; Cuff Size: Standard 08-26-2015 15:35-0400 BSA (Body Surface Area) 2.02 m2 Kathy Sifuentes [facility] Internal Medicine Work Phone: 08-26-2015 15:35-0400 Height 180.34 cm Kathy Sifuentes [facility] Internal Medicine Work Phone: 08-26-2015 15:35-0400 Pulse (Heart Rate) 76 /min Kathy Sifuentes [facility] Internal Medicine Work Phone: Comment on above: Pattern: Regular 08-26-2015 15:35-0400 Pulse Oximetry 97 % Kathy Sifuentes [facility] Internal Medicine Work Phone: Comment on above: Room air 08-26-2015 15:35-0400 Respiratory Rate 20 /min Kathy Sifuentes [facility] Internal Medicine Work Phone: Comment on above: Pattern: Unlabored 08-26-2015 15:35-0400 Weight 81.65 kg Kathy Sifuentes [facility] Internal Medicine Work Phone: 02-20-2015 12:00-0400 BMI (Body Mass Index) 24.83 kg/m2 Kathy Sifuentes [facility] Internal Medicine Work Phone: 02-20-2015 12:00-0400 Body weight 80.74 kg Kathy Sifuentes [facility] Internal Medicine Work Phone: 02-20-2015 12:00-0400 BP Diastolic 80 mm[Hg] Kathy Sifuentes [facility] Internal Medicine Work Phone: Comment on above: Patient Position: Sitting; Cuff Location : Left Arm; Cuff Size: Standard 02-20-2015 12:00-0400 BP Systolic 148 mm[Hg] Kathy Sifuentes [facility] Internal Medicine Work Phone: Comment on above: Patient Position: Sitting; Cuff Location : Left Arm; Cuff Size: Standard 02-20-2015 12:00-0400 BSA (Body Surface Area) 2.01 m2 Kathy Sifuentes [facility] Internal Medicine Work Phone: 02-20-2015 12:00-0400 Height 180.34 cm Kathy Sifuentes [facility] Internal Medicine Work Phone: 02-20-2015 12:00-0400 Pulse (Heart Rate) 62 /min Kathy Sifuentes [facility] Internal Medicine Work Phone: Comment on above: Pattern: Regular 02-20-2015 12:00-0400 Pulse Oximetry 98 % Kathy Sifuentes [facility] Internal Medicine Work Phone: Comment on above: Room air 02-20-2015 12:00-0400 Respiratory Rate 16 /min Kathy Sifuentes [facility] Internal Medicine Work Phone: Comment on above: Pattern: Unlabored 02-20-2015 12:00-0400 Weight 80.74 kg Kathy Sifuentes [facility] Internal Medicine Work Phone: 09-13-2014 13:23-0400 BMI (Body Mass Index) 24.69 kg/m2 Kathy Sifuentes [facility] Internal Medicine Work Phone: 09-13-2014 13:23-0400 Body Temperature 97.6 [degF] Kathy Sifuentes [facility] Internal Medicine Work Phone: Comment on above: Method: Temporal 09-13-2014 13:23-0400 Body weight 80.29 kg Kathy Sifuentes [facility] Internal Medicine Work Phone: 09-13-2014 13:23-0400 BP Diastolic 80 mm[Hg] aKthy Sifuentes [facility] Internal Medicine Work Phone: Comment on above: Patient Position: Sitting; Cuff Location : Left Arm; Cuff Size: Standard 09-13-2014 13:23-0400 BP Systolic 120 mm[Hg] Kathy Sifuentes [facility] Internal Medicine Work Phone: Comment on above: Patient Position: Sitting; Cuff Location : Left Arm; Cuff Size: Standard 09-13-2014 13:23-0400 BSA (Body Surface Area) 2 m2 Kathy Sifuentes [facility] Internal Medicine Work Phone: 09-13-2014 13:23-0400 Height 180.34 cm Kathy Sifuentes [facility] Internal Medicine Work Phone: 09-13-2014 13:23-0400 Pulse (Heart Rate) 70 /min Kathy Sifuentes [facility] Internal Medicine Work Phone: Comment on above: Pattern: Regular 09-13-2014 13:23-0400 Pulse Oximetry 98 % Kathy Sifuentes [facility] Internal Medicine Work Phone: Comment on above: Room air 09-13-2014 13:23-0400 Respiratory Rate 20 /min Kathy Sifuentes [facility] Internal Medicine Work Phone: Comment on above: Pattern: Unlabored 09-13-2014 13:23-0400 Weight 80.29 kg Kathy Sifuentes [facility] Internal Medicine Work Phone: 05-09-2014 12:24-0500 BMI (Body Mass Index) 24.13 kg/m2 Kathy Sifuentes [facility] Internal Medicine Work Phone: 05-09-2014 12:24-0500 Body Temperature 97.6 [degF] Kathy Sifuentes [facility] Internal Medicine Work Phone: Comment on above: Method: Temporal 05-09-2014 12:24-0500 Body weight 78.47 kg Kathy Sifuentes [facility] Internal Medicine Work Phone: 05-09-2014 12:24-0500 BP Diastolic 82 mm[Hg] Kathy Sifuentes [facility] Internal Medicine Work Phone: Comment on above: Patient Position: Sitting; Cuff Location : Left Arm; Cuff Size: Standard 05-09-2014 12:24-0500 BP Systolic 134 mm[Hg] Kathy Sifuentes [facility] Internal Medicine Work Phone: Comment on above: Patient Position: Sitting; Cuff Location : Left Arm; Cuff Size: Standard 05-09-2014 12:24-0500 BSA (Body Surface Area) 1.98 m2 Kathy Sifuentes [facility] Internal Medicine Work Phone: 05-09-2014 12:24-0500 Height 180.34 cm Kathy Sifuentes [facility] Internal Medicine Work Phone: 05-09-2014 12:24-0500 Pulse (Heart Rate) 60 /min Kathy Sifuentes [facility] Internal Medicine Work Phone: Comment on above: Pattern: Regular 05-09-2014 12:24-0500 Pulse Oximetry 98 % Kathy Sifuentes [facility] Internal Medicine Work Phone: Comment on above: Room air 05-09-2014 12:24-0500 Respiratory Rate 20 /min Kathy Sifuentes [facility] Internal Medicine Work Phone: Comment on above: Pattern: Unlabored 05-09-2014 12:24-0500 Weight 78.47 kg Kathy Sifuentes [facility] Internal Medicine Work Phone: 02-08-2014 12:45-0400 BMI (Body Mass Index) 24.13 kg/m2 Kathy Sifuentes [facility] Internal Medicine Work Phone: 02-08-2014 12:45-0400 Body Temperature 97.6 [degF] Kathy Sifuentes [facility] Internal Medicine Work Phone: Comment on above: Method: Oral 02-08-2014 12:45-0400 Body weight 78.47 kg Kathy Sifuentes [facility] Internal Medicine Work Phone: 02-08-2014 12:45-0400 BP Diastolic 76 mm[Hg] Kathy Sifuentes [facility] Internal Medicine Work Phone: Comment on above: Patient Position: Sitting; Cuff Location : Left Arm; Cuff Size: Standard 02-08-2014 12:45-0400 BP Systolic 116 mm[Hg] Kathy Sifuentes [facility] Internal Medicine Work Phone: Comment on above: Patient Position: Sitting; Cuff Location : Left Arm; Cuff Size: Standard 02-08-2014 12:45-0400 BSA (Body Surface Area) 1.98 m2 Kathy Sifuentes [facility] Internal Medicine Work Phone: 02-08-2014 12:45-0400 Height 180.34 cm Kathy Sifuentes [facility] Internal Medicine Work Phone: 02-08-2014 12:45-0400 Pulse (Heart Rate) 70 /min Kathy Sifuentes [facility] Internal Medicine Work Phone: Comment on above: Pattern: Regular 02-08-2014 12:45-0400 Respiratory Rate 20 /min Kathy Sifuentes [facility] Internal Medicine Work Phone: Comment on above: Pattern: Unlabored 02-08-2014 12:45-0400 Weight 78.47 kg Kathy Sifuentes [facility] Internal Medicine Work Phone: 02-06-2013 11:52-0400 BMI (Body Mass Index) 23.59 kg/m2 Kathy Sifuentes [facility] Internal Medicine Work Phone: 02-06-2013 11:52-0400 Body Temperature 97.6 [degF] Kathy Sifuentes [facility] Internal Medicine Work Phone: Comment on above: Method: Oral 02-06-2013 11:52-0400 Body weight 76.72 kg Kathy Sifuentes [facility] Internal Medicine Work Phone: 02-06-2013 11:52-0400 BP Diastolic 80 mm[Hg] Kathy Sifuentes [facility] Internal Medicine Work Phone: Comment on above: Patient Position: Sitting; Cuff Location : Left Arm; Cuff Size: Standard 02-06-2013 11:52-0400 BP Systolic 122 mm[Hg] Kathy Sifuentes [facility] Internal Medicine Work Phone: Comment on above: Patient Position: Sitting; Cuff Location : Left Arm; Cuff Size: Standard 02-06-2013 11:52-0400 BSA (Body Surface Area) 1.96 m2 Kathy Sifuentes [facility] Internal Medicine Work Phone: 02-06-2013 11:52-0400 Height 180.34 cm Kathy Sifuentes [facility] Internal Medicine Work Phone: 02-06-2013 11:52-0400 Pulse (Heart Rate) 70 /min Kathy Sifuentes [facility] Internal Medicine Work Phone: Comment on above: Pattern: Regular 02-06-2013 11:52-0400 Pulse Oximetry 98 % Kathy Sifuentes [facility] Internal Medicine Work Phone: Comment on above: Room air 02-06-2013 11:52-0400 Respiratory Rate 16 /min Kathy Sifuentes [facility] Internal Medicine Work Phone: 02-06-2013 11:52-0400 Weight 76.72 kg Kathy Sifuentes [facility] Internal Medicine Work Phone: 10-02-2012 12:00-0400 BMI (Body Mass Index) 23.59 kg/m2 Kathy Sifuentes [facility] Internal Medicine Work Phone: 10-02-2012 12:00-0400 Body Temperature 97.6 [degF] Kahty Sifuentes [facility] Internal Medicine Work Phone: Comment on above: Method: Temporal 10-02-2012 12:00-0400 Body weight 76.72 kg Kathy Sifuentes [facility] Internal Medicine Work Phone: 10-02-2012 12:00-0400 BP Diastolic 80 mm[Hg] Kathy Sifuentes [facility] Internal Medicine Work Phone: Comment on above: Patient Position: Sitting; Cuff Location : Left Arm; Cuff Size: Standard 10-02-2012 12:00-0400 BP Systolic 132 mm[Hg] Kathy Sifuentes [facility] Internal Medicine Work Phone: Comment on above: Patient Position: Sitting; Cuff Location : Left Arm; Cuff Size: Standard 10-02-2012 12:00-0400 BSA (Body Surface Area) 1.96 m2 Kathy Sifuentes [facility] Internal Medicine Work Phone: 10-02-2012 12:00-0400 Height 180.34 cm Kathy Sifuentes [facility] Internal Medicine Work Phone: 10-02-2012 12:00-0400 Pulse (Heart Rate) 78 /min Kathy Sifuentes [facility] Internal Medicine Work Phone: Comment on above: Pattern: Regular 10-02-2012 12:00-0400 Pulse Oximetry 96 % Kathy Sifuentes [facility] Internal Medicine Work Phone: Comment on above: Room air 10-02-2012 12:00-0400 Respiratory Rate 16 /min Kathy Sifuentes [facility] Internal Medicine Work Phone: Comment on above: Pattern: Unlabored 10-02-2012 12:00-0400 Weight 76.72 kg Kathy Sifuentes [facility] Internal Medicine Work Phone: 05-19-2012 11:05-0500 BMI (Body Mass Index) 23.59 kg/m2 Kathy Sifuentes [facility] Internal Medicine Work Phone: 05-19-2012 11:05-0500 Body Temperature 98.6 [degF] Kathy Sifuentes [facility] Internal Medicine Work Phone: Comment on above: Method: Oral 05-19-2012 11:05-0500 Body weight 76.72 kg Kathy Sifuentes [facility] Internal Medicine Work Phone: 05-19-2012 11:05-0500 BP Diastolic 78 mm[Hg] Kathy Sifuentes [facility] Internal Medicine Work Phone: Comment on above: Patient Position: Sitting; Cuff Location : Left Arm; Cuff Size: Standard 05-19-2012 11:05-0500 BP Systolic 128 mm[Hg] Kathy Sifuentes [facility] Internal Medicine Work Phone: Comment on above: Patient Position: Sitting; Cuff Location : Left Arm; Cuff Size: Standard 05-19-2012 11:05-0500 BSA (Body Surface Area) 1.96 m2 Kathy Sifuentes [facility] Internal Medicine Work Phone: 05-19-2012 11:05-0500 Height 180.34 cm Kathy Sifuentes [facility] Internal Medicine Work Phone: 05-19-2012 11:05-0500 Pulse (Heart Rate) 68 /min Kathy Sifuentes [facility] Internal Medicine Work Phone: Comment on above: Pattern: Regular 05-19-2012 11:05-0500 Pulse Oximetry 98 % Kathy Sifuentes [facility] Internal Medicine Work Phone: Comment on above: Room air 05-19-2012 11:05-0500 Respiratory Rate 18 /min Kathy Sifuentes [facility] Internal Medicine Work Phone: Comment on above: Pattern: Unlabored 05-19-2012 11:05-0500 Weight 76.72 kg Kathy Sifuentes [facility] Internal Medicine Work Phone: 04-19-2012 10:34-0500 BMI (Body Mass Index) 23.59 kg/m2 Kathy Sifuentes [facility] Internal Medicine Work Phone: 04-19-2012 10:34-0500 Body Temperature 97.8 [degF] Kathy Sifuentes [facility] Internal Medicine Work Phone: Comment on above: Method: Oral 04-19-2012 10:34-0500 Body weight 76.72 kg Kathy Sifuentes [facility] Internal Medicine Work Phone: 04-19-2012 10:34-0500 BP Diastolic 76 mm[Hg] Kathy Sifuentes [facility] Internal Medicine Work Phone: Comment on above: Patient Position: Sitting; Cuff Location : Left Arm; Cuff Size: Standard 04-19-2012 10:34-0500 BP Systolic 132 mm[Hg] Kathy Sifuentes [facility] Internal Medicine Work Phone: Comment on above: Patient Position: Sitting; Cuff Location : Left Arm; Cuff Size: Standard 04-19-2012 10:34-0500 BSA (Body Surface Area) 1.96 m2 Kathy Sifuentes [facility] Internal Medicine Work Phone: 04-19-2012 10:34-0500 Height 180.34 cm Kathy Sifuentes [facility] Internal Medicine Work Phone: 04-19-2012 10:34-0500 Pulse (Heart Rate) 52 /min Kathy Sifuentes [facility] Internal Medicine Work Phone: Comment on above: Pattern: Regular 04-19-2012 10:34-0500 Pulse Oximetry 96 % Kathy Sifuentes [facility] Internal Medicine Work Phone: Comment on above: Room air 04-19-2012 10:34-0500 Respiratory Rate 16 /min Kathy Sifuentes [facility] Internal Medicine Work Phone: 04-19-2012 10:34-0500 Weight 76.72 kg Kathy Siufentes [facility] Internal Medicine Work Phone: 04-11-2012 08:56-0500 BMI (Body Mass Index) 23.59 kg/m2 Kathy Sifuentes [facility] Internal Medicine Work Phone: 04-11-2012 08:56-0500 Body Temperature 97.5 [degF] Kathy Sifuentes [facility] Internal Medicine Work Phone: Comment on above: Method: Oral 04-11-2012 08:56-0500 Body weight 76.72 kg Kathy Sifuentes [facility] Internal Medicine Work Phone: 04-11-2012 08:56-0500 BP Diastolic 74 mm[Hg] Kathy Sifuentes [facility] Internal Medicine Work Phone: Comment on above: Patient Position: Sitting; Cuff Location : Left Arm; Cuff Size: Standard 04-11-2012 08:56-0500 BP Systolic 132 mm[Hg] Kathy Sifuentes [facility] Internal Medicine Work Phone: Comment on above: Patient Position: Sitting; Cuff Location : Left Arm; Cuff Size: Standard 04-11-2012 08:56-0500 BSA (Body Surface Area) 1.96 m2 Kathy Sifuentes [facility] Internal Medicine Work Phone: 04-11-2012 08:56-0500 Height 180.34 cm Kathy Sifuentes [facility] Internal Medicine Work Phone: 04-11-2012 08:56-0500 Pulse (Heart Rate) 82 /min Kathy Sifuentes [facility] Internal Medicine Work Phone: Comment on above: Pattern: Regular 04-11-2012 08:56-0500 Respiratory Rate 18 /min Kathy Sifuentes [facility] Internal Medicine Work Phone: Comment on above: Pattern: Unlabored 04-11-2012 08:56-0500 Weight 76.72 kg Kathy Sifuentes [facility] Internal Medicine Work Phone: 04-03-2012 11:34-0500 BMI (Body Mass Index) 23.59 kg/m2 Kathy Sifuentes [facility] Internal Medicine Work Phone: 04-03-2012 11:34-0500 Body Temperature 98.4 [degF] Kathy Sifuentes [facility] Internal Medicine Work Phone: Comment on above: Method: Tympanic 04-03-2012 11:34-0500 Body weight 76.72 kg Kathy Sifuentes [facility] Internal Medicine Work Phone: 04-03-2012 11:34-0500 BP Diastolic 74 mm[Hg] Kathy Sifuentes [facility] Internal Medicine Work Phone: Comment on above: Patient Position: Sitting; Cuff Location : Left Arm; Cuff Size: Standard 04-03-2012 11:34-0500 BP Systolic 108 mm[Hg] Kathy Sifuentes [facility] Internal Medicine Work Phone: Comment on above: Patient Position: Sitting; Cuff Location : Left Arm; Cuff Size: Standard 04-03-2012 11:34-0500 BSA (Body Surface Area) 1.96 m2 Kathy Sifuentes [facility] Internal Medicine Work Phone: 04-03-2012 11:34-0500 Height 180.34 cm Kathy Sifuentes [facility] Internal Medicine Work Phone: 04-03-2012 11:34-0500 Pulse (Heart Rate) 80 /min Kathy Sifuentes [facility] Internal Medicine Work Phone: Comment on above: Pattern: Regular 04-03-2012 11:34-0500 Respiratory Rate 18 /min Kathy Sifuentes [facility] Internal Medicine Work Phone: Comment on above: Pattern: Unlabored 04-03-2012 11:34-0500 Weight 76.72 kg Kathy Sifuentes [facility] Internal Medicine Work Phone: 07-07-2011 12:07-0500 BMI (Body Mass Index) 23.59 kg/m2 Kathy Paul [facility] Internal Medicine Work Phone: 07-07-2011 12:07-0500 Body Temperature 97.3 [degF] Kathy Sifuentes [facility] Internal Medicine Work Phone: Comment on above: Method: Oral 07-07-2011 12:07-0500 Body weight 76.72 kg Kathy Napoles Internal Medicine Work Phone: 07-07-2011 12:07-0500 BP Diastolic 80 mm[Hg] Kathy Sifuentes [facility] Internal Medicine Work Phone: Comment on above: Patient Position: Sitting; Cuff Location : Right Arm; Cuff Size: Large 07-07-2011 12:07-0500 BP Systolic 124 mm[Hg] Kathy Sifuentes [facility] Internal Medicine Work Phone: Comment on above: Patient Position: Sitting; Cuff Location : Right Arm; Cuff Size: Large 07-07-2011 12:07-0500 BSA (Body Surface Area) 1.96 m2 Kathy Sifuentes [facility] Internal Medicine Work Phone: 07-07-2011 12:07-0500 Height 180.34 cm Kathy Sifuentes [facility] Internal Medicine Work Phone: 07-07-2011 12:07-0500 Pulse (Heart Rate) 80 /min Kathy Sifuentes [facility] Internal Medicine Work Phone: Comment on above: Pattern: Regular 07-07-2011 12:07-0500 Respiratory Rate 18 /min Kathy Sifuentes [facility] Internal Medicine Work Phone: Comment on above: Pattern: Unlabored 07-07-2011 12:07-0500 Weight 76.72 kg Kathy Sifuentes [facility] Internal Medicine Work Phone: 06-17-2011 13:54-0500 BP Diastolic 78 mm[Hg] Kathy Sifuentes [facility] Internal Medicine Work Phone: Comment on above: Patient Position: Standing; Cuff Locatio n: Left Arm; Cuff Size: Standard 06-17-2011 13:54-0500 BP Systolic 116 mm[Hg] Kathy Sifuentes [facility] Internal Medicine Work Phone: Comment on above: Patient Position: Standing; Cuff Locatio n: Left Arm; Cuff Size: Standard 06-17-2011 13:54-0500 Pulse (Heart Rate) 62 /min Kathy Sifuentes [facility] Internal Medicine Work Phone: Comment on above: Pattern: Regular 06-17-2011 13:53-0500 BP Diastolic 80 mm[Hg] Kathy Sifuentes [facility] Internal Medicine Work Phone: Comment on above: Patient Position: Sitting; Cuff Location : Left Arm; Cuff Size: Standard 06-17-2011 13:53-0500 BP Systolic 126 mm[Hg] Kathy Sifuentes [facility] Internal Medicine Work Phone: Comment on above: Patient Position: Sitting; Cuff Location : Left Arm; Cuff Size: Standard 06-17-2011 13:53-0500 Pulse (Heart Rate) 64 /min Kathy Sifuentes [facility] Internal Medicine Work Phone: Comment on above: Pattern: Regular 06-17-2011 13:52-0500 BMI (Body Mass Index) 22.87 kg/m2 Kathy Sifuentes [facility] Internal Medicine Work Phone: 06-17-2011 13:52-0500 Body Temperature 97.9 [degF] Kathy Sifuentes [facility] Internal Medicine Work Phone: Comment on above: Method: Oral 06-17-2011 13:52-0500 Body weight 74.39 kg Kathy Sifuentes [facility] Internal Medicine Work Phone: 06-17-2011 13:52-0500 BP Diastolic 80 mm[Hg] Kathy Sifuentes [facility] Internal Medicine Work Phone: Comment on above: Patient Position: Supine; Cuff Location: Left Arm; Cuff Size: Standard 06-17-2011 13:52-0500 BP Systolic 140 mm[Hg] Kathy Sifuentes [facility] Internal Medicine Work Phone: Comment on above: Patient Position: Supine; Cuff Location: Left Arm; Cuff Size: Standard 06-17-2011 13:52-0500 BSA (Body Surface Area) 1.94 m2 Kathy Sifuentes [facility] Internal Medicine Work Phone: 06-17-2011 13:52-0500 Height 180.34 cm [facility] Work Phone: 06-17-2011 13:52-0500 Pulse (Heart Rate) 64 /min Kathy Sifuentes [facility] Internal Medicine Work Phone: Comment on above: Pattern: Regular 06-17-2011 13:52-0500 Respiratory Rate 18 /min Kathy Sifuentes [facility] Internal Medicine Work Phone: Comment on above: Pattern: Unlabored 06-17-2011 13:52-0500 Weight 74.39 kg Kathy Sifuentes [facility] Internal Medicine Work Phone: 05-05-2011 08:50-0500 BMI (Body Mass Index) 22.87 kg/m2 Kathy Sifuentse [facility] Internal Medicine Work Phone: 05-05-2011 08:50-0500 Body Temperature 98.2 [degF] Kathy Sifuentes [facility] Internal Medicine Work Phone: Comment on above: Method: Oral 05-05-2011 08:50-0500 Body weight 74.39 kg Kathy Sifuentes [facility] Internal Medicine Work Phone: 05-05-2011 08:50-0500 BP Diastolic 76 mm[Hg] Kathy Sifuentes [facility] Internal Medicine Work Phone: Comment on above: Patient Position: Sitting; Cuff Location : Left Arm; Cuff Size: Standard 05-05-2011 08:50-0500 BP Systolic 138 mm[Hg] Kathy Sifuentes [facility] Internal Medicine Work Phone: Comment on above: Patient Position: Sitting; Cuff Location : Left Arm; Cuff Size: Standard 05-05-2011 08:50-0500 BSA (Body Surface Area) 1.94 m2 Kathy Sifuentes [facility] Internal Medicine Work Phone: 05-05-2011 08:50-0500 Height 180.34 cm Kathy Sifuentes [facility] Internal Medicine Work Phone: 05-05-2011 08:50-0500 Pulse (Heart Rate) 76 /min Kathy Sifuentes [facility] Internal Medicine Work Phone: Comment on above: Pattern: Regular 05-05-2011 08:50-0500 Respiratory Rate 16 /min Kathy Sifuentes [facility] Internal Medicine Work Phone: Comment on above: Pattern: Unlabored 05-05-2011 08:50-0500 Weight 74.39 kg Kathy Sifuentes [facility] Internal Medicine Work Phone: 02-11-2011 12:07-0400 BMI (Body Mass Index) 22.87 kg/m2 Kathy Sifuentes [facility] Internal Medicine Work Phone: 02-11-2011 12:07-0400 Body Temperature 98.2 [degF] Kathy Sifuentes [facility] Internal Medicine Work Phone: Comment on above: Method: Oral 02-11-2011 12:07-0400 Body weight 74.39 kg Kathy Sifuentes [facility] Internal Medicine Work Phone: 02-11-2011 12:07-0400 BP Diastolic 76 mm[Hg] Kathy Sifuentes [facility] Internal Medicine Work Phone: Comment on above: Patient Position: Sitting; Cuff Location : Left Arm; Cuff Size: Standard 02-11-2011 12:07-0400 BP Systolic 120 mm[Hg] Kathy Sifuentes [facility] Internal Medicine Work Phone: Comment on above: Patient Position: Sitting; Cuff Location : Left Arm; Cuff Size: Standard 02-11-2011 12:07-0400 BSA (Body Surface Area) 1.94 m2 Kathy Sifuentes [facility] Internal Medicine Work Phone: 02-11-2011 12:07-0400 Height 180.34 cm Kathy Sifuentes [facility] Internal Medicine Work Phone: 02-11-2011 12:07-0400 Pulse (Heart Rate) 68 /min Kathy Sifuentes [facility] Internal Medicine Work Phone: Comment on above: Pattern: Regular 02-11-2011 12:07-0400 Respiratory Rate 18 /min Kathy Sifuentes [facility] Internal Medicine Work Phone: Comment on above: Pattern: Unlabored 02-11-2011 12:07-0400 Weight 74.39 kg Kathy Sifuentes [facility] Internal Medicine Work Phone: 09-21-2010 10:05-0400 BMI (Body Mass Index) 24.69 kg/m2 Kathy Paul [facility] Internal Medicine Work Phone: 09-21-2010 10:05-0400 Body Temperature 97.1 [degF] Kathy Sifuentes [facility] Internal Medicine Work Phone: Comment on above: Method: Oral 09-21-2010 10:05-0400 Body weight 80.32 kg Kathy Sifuentes [facility] Internal Medicine Work Phone: 09-21-2010 10:05-0400 BP Diastolic 80 mm[Hg] Kathy Sifuentes [facility] Internal Medicine Work Phone: Comment on above: Patient Position: Sitting; Cuff Location : Left Arm; Cuff Size: Standard 09-21-2010 10:05-0400 BP Systolic 142 mm[Hg] Kathy Sifuentes [facility] Internal Medicine Work Phone: Comment on above: Patient Position: Sitting; Cuff Location : Left Arm; Cuff Size: Standard 09-21-2010 10:05-0400 BSA (Body Surface Area) 2 m2 Kathy Sifuentes [facility] Internal Medicine Work Phone: 09-21-2010 10:05-0400 Height 180.34 cm Kathy Sifuentes [facility] Internal Medicine Work Phone: 09-21-2010 10:05-0400 Pulse (Heart Rate) 70 /min Kathy Sifuentes [facility] Internal Medicine Work Phone: Comment on above: Pattern: Regular 09-21-2010 10:05-0400 Respiratory Rate 16 /min Kathy Sifuentes [facility] Internal Medicine Work Phone: Comment on above: Pattern: Unlabored 09-21-2010 10:05-0400 Weight 80.32 kg Kathy Sifuentes [facility] Internal Medicine Work Phone: 05-10-2008 12:40-0500 BMI (Body Mass Index) 25.28 kg/m2 Kathy Paul [facility] Internal Medicine Work Phone: 05-10-2008 12:40-0500 Body weight 84.54 kg Kathy Napoles Internal Medicine Work Phone: 05-10-2008 12:40-0500 BP Diastolic 72 mm[Hg] Kathy [facility] Work Phone: Comment on above: Patient Position: Sitting; Cuff Location : Left Arm; Cuff Size: Large 05-10-2008 12:40-0500 BP Systolic 120 mm[Hg] Kathy Sif[facility]es [facility] Work Phone: Comment on above: Patient Position: Sitting; Cuff Location : Left Arm; Cuff Size: Large 05-10-2008 12:40-0500 BSA (Body Surface Area) 2.07 m2 Kathy Sif[facility]es [facility] Work Phone: 05-10-2008 12:40-0500 Head Circumference 0 cm Kathy Sif[facility]es [facility] Work Phone: 05-10-2008 12:40-0500 Height 182.88 cm Kathy Sifuentes [facility] Internal Medicine Work Phone: 05-10-2008 12:40-0500 Pulse (Heart Rate) 60 /min Kathy Napoles Internal Medicine Work Phone: Comment on above: Pattern: Regular 05-10-2008 12:40-0500 Respiratory Rate 20 /min Kathy aNpoles Internal Medicine Work Phone: Comment on above: Pattern: Unlabored 05-10-2008 12:40-0500 Weight 84.54 kg Kathy Napoles Internal Medicine Work Phone: Encounters Encounter Date Encounter Type Care Provider Facility Start: 11-09-2024 ambulatory Vasquez Sánchez Facility :[facility] Start: 10-12-2024 End: 10-12-2024 Patient encounter procedure Vasquez MUELLER -[facility] Work Phone: Start: 10-12-2024 End: 10-12-[address] Jhonatan Merino DO Work Phone: [facility] Work Phone: Start: 10-12-2024 End: 10-12-2024 ambulatory Vasquez Sánchez Facility:[facility] Start: 10-09-2024 End: 10-13-2024 ambulatory JHONATAN MERINO DO [facility] Start: 08-08-2024 End: 08-08-[address] Jhonatan Merino DO Work Phone: [facility] Work Phone: Start: 08-08-2024 End: 08-08-[address] Rachael Seymour MD -Laboratory, [place] Work Phone: Start: 08-08-2024 End: 08-08-2024 ambulatory Jhonatan Merino Facility:[facility] Start: 07-12-2024 End: 07-12-2024 Patient encounter procedure Carissa Galeano -Laboratory Work Phone: Start: 07-12-2024 End: 07-12-2024 ambulatory Jhonatan Merino Facility:[facility] Start: 07-03-2024 End: 07-03-2024 ambulatory JHONATAN MERINO DO [facility] Start: 07-03-2024 End: 07-03-2024 Patient encounter procedure JHONATAN MERINO DO [facility] Start: 04-16-2024 End: 04-16-2024 ambulatory Rasta Gan NP Facility:[facility] Start: 04-12-2024 End: 04-12-2024 ambulatory Jhonatan Merino Facility:[facility] Start: 01-18-2024 End: 01-18-2024 ambulatory JHONATAN MERINO DO Facility:[facility] Start: 01-18-2024 End: 01-18-2024 Patient encounter procedure JHONATAN STEPHANIEKO DO [facility] Start: 01-08-2024 End: 01-08-2024 Emergency department patient visit Jhonatan Merino Facility:[facility] Start: 11-16-2023 End: 11-17-2023 ambulatory Louis Lock Facility:[facility] Start: 08-30-2023 End: 08-30-2023 ambulatory [facility] Work Phone: Start: 08-30-2023 End: 08-30-2023 Patient encounter procedure [facility] Work Phone: Start: 07-18-2023 End: 07-18-2023 ambulatory JHONATAN MERINO DO Facility:[facility] Start: 04-12-2023 End: 04-12-2023 ambulatory JENNIFER WALDRON MD Facility:[facility] Start: 03-23-2023 End: 03-23-2023 ambulatory JHONATAN MERINO DO Facility:[facility] Start: 03-23-2023 End: 03-23-2023 Patient encounter procedure JHONATAN WILBER PARIKH [facility] Start: 03-15-2023 End: 03-15-2023 ambulatory JHONATAN STEPHANIESUDHAKAR PARIKH Facility:[facility] Start: 03-14-2023 End: 03-14-2023 ambulatory JHONATAN MERINO DO Facility:[facility] Start: 03-14-2023 End: 03-14-2023 Patient encounter procedure JHONATAN STEPHANIESUDHAKAR PARIKH [facility] Start: 01-20-2023 End: 01-20-[address] Jhonatan Merino Work Phone: [facility] Work Phone: Start: 01-20-2023 End: 01-20-[address] Jhonatan Merino Work Phone: [facility] Work Phone: Start: 01-04-2023 End: 01-08-2023 Outreach Lab IVETT MANZO INSURANCE CLAIMS SUPERVISOR-[employer]ENCH SCIENTIST [facility] Start: 12-31-2022 Non-patient / Non-visit Dr. Shaneka Merino Work Phone: [facility] Start: 12-24-2022 Non-patient / Non-visit Dr. Shaneka Merino Work Phone: [facility] Start: 12-24-[address] Regan Merino Work Phone: [facility] Work Phone: Start: 12-22-2022 End: 12-22-[address] Jhonatan Merino Work Phone: [facility] Work Phone: Start: 12-22-2022 End: 12-22-[address] Jhonatan Merino Work Phone: [facility] Work Phone: Start: 12-21-2022 Telephone encounter Ivett preciado INSURANCE CLAIMS SUPERVISOR.BENCH SCIENTIST Work Phone: [facility] Comment on above: Referral Information Start: 12-21-2022 End: 12-21-2022 ambulatory IVETT ALFREDO Facility:[facility] Start: 12-21-2022 End: 12-21-2022 Patient encounter procedure Ivett Alfredo INSURANCE CLAIMS SUPERVISOR.BENCH SCIENTIST Work Phone: [facility] Comment on above: Hematoma (Primary Dx ) Start: 12-20-2022 End: 12-20-2022 Emergency department patient visit [facility] Work Phone: Start: 12-17-2022 Emergency department patient visit CATHY DALLAS Facility:[facility] Start: 12-17-2022 End: 12-17-2022 Emergency department patient visit [facility] Work Phone: Start: 10-19-2022 End: 10-19-2022 Patient encounter procedure JHONATAN MERINO DO [facility] Start: 03-17-2022 End: 03-17-2022 Patient encounter procedure JHONATAN MERINO DO [facility] Start: 03-11-2022 End: 03-11-2022 Patient encounter procedure JHONATAN MERINO DO [facility] Start: 11-28-2021 End: 11-28-2021 Patient encounter procedure [facility] Start: 11-24-2021 End: 11-28-2021 Outreach Lab JHONATAN MERINO DO [facility] Start: 11-19-2021 End: 11-19-2021 Patient encounter procedure JHONATAN MERINO DO [facility] Start: 07-13-2021 End: 07-13-2021 Patient encounter procedure JHONATAN MERINO DO [facility] Start: 07-08-2021 End: 07-08-2021 Patient encounter procedure JHONATAN MERINO DO [facility] Start: 02-23-2019 End: 02-23-2019 Office outpatient visit 15 minutes Kathy [facility] Start: 02-14-2019 End: 02-14-2019 Office outpatient visit 15 minutes Kathy [facility] Start: 02-13-2019 End: 02-13-2019 Lab Order [facility] Start: 02-13-2019 End: 02-13-2019 Annotation/Addendum aKthy [facility] Start: 01-31-2019 Review [facility]es [facility] Start: 01-30-2019 End: 01-30-2019 Annotation/Addendum [facility] Start: 01-25-2019 End: 01-25-2019 Annotation/Addendum [facility] Start: 01-25-2019 End: 01-25-2019 Annotation/Addendum [facility] Start: 01-24-2019 End: 01-24-2019 Office outpatient visit 25 minutes Kathy [facility] Start: 01-24-2019 Review Kathy [facility]uentes [facility] Start: 01-10-2019 End: 01-10-2019 Office outpatient visit 25 minutes Kathy Napoles [facility] Start: 01-10-2019 Review Kathy [facility]es [facility] Start: 12-18-2018 End: 12-18-2018 Phone Encounter Kathy [facility] Start: 09-04-2018 Patient encounter procedure Cathy Dallas [facility] Start: 09-04-2018 End: 09-04-2018 Office outpatient visit 25 minutes Kathy Napoles [facility] Start: 08-31-2018 End: 08-31-2018 Annotation/Addendum Kathy [facility] Start: 08-16-2018 End: 08-16-2018 Periodic preventive med est patient 65yrs& older Kathy Napoles [facility] Start: 08-16-2018 Review Kathy Cal[facility] Start: 03-13-2018 End: 03-13-2018 Annotation/Addendum Kathy [facility] Start: 02-27-2018 End: 02-27-2018 Annotation/Addendum Kathy [facility] Start: 02-24-2018 End: 02-24-2018 Office outpatient visit 15 minutes Kathy Napoles [facility] Start: 02-17-2018 End: 02-17-2018 Office outpatient visit 25 minutes Kathy Napoles [facility] Start: 11-30-2017 End: 11-30-2017 Annotation/Addendum Kathy [facility] Start: 11-30-2017 End: 11-30-2017 Office outpatient visit 25 minutes Kathy Napoles [facility] Start: 09-05-2017 End: 09-05-2017 Annotation/Addendum Kathy [facility] Start: 08-30-2017 End: 08-30-2017 Phone Encounter Kathy [facility] Start: 08-30-2017 End: 08-30-2017 Office outpatient visit 25 minutes Kathy Napoles [facility] Start: 03-18-2017 End: 03-21-2017 Ambulatory ALEXANDRO WILKES [facility] Start: 12-20-2016 End: 12-20-2016 Annotation/Addendum Kathy [facility] Start: 09-10-2016 End: 09-10-2016 Office outpatient visit 15 minutes Kathy [facility] Start: 08-24-2016 End: 08-24-2016 Office outpatient visit 25 minutes Kathy Sifuentes [facility] Start: 08-09-2016 End: 08-09-2016 Annotation/Addendum Kathy [facility] Start: 05-07-2016 End: 05-07-2016 Office outpatient visit 15 minutes Kathy Sifuentes [facility] Start: 05-04-2016 End: 05-04-2016 Office outpatient visit 15 minutes Kathy Sifuentes [facility] Start: 04-19-2016 End: 04-19-2016 Annotation/Addendum Kathy [facility] Start: 03-19-2016 End: 03-19-2016 Office outpatient visit 15 minutes Kathy Sifuentes [facility] Start: 01-28-2016 End: 01-28-2016 Office outpatient visit 15 minutes Kathy Sifuentes [facility] Start: 01-14-2016 End: 01-14-2016 Annotation/Addendum Kathy Sifuentes [facility] Start: 01-13-2016 End: 01-13-2016 Postop follow up visit related to original px Kathy Sifuentes [facility] Start: 01-12-2016 End: 01-12-2016 Office outpatient visit 25 minutes Kathy Sifuentes [facility] Start: 12-16-2015 End: 12-16-2015 Historical Summary Kathy [facility] Start: 12-16-2015 End: 12-16-2015 Annotation/Addendum Kathy [facility] Start: 12-12-2015 End: 12-12-2015 Office outpatient visit 25 minutes Kathy Sifuentes [facility] Start: 09-12-2015 End: 09-12-2015 Office outpatient visit 25 minutes Kathy Sifuentes [facility] Start: 09-05-2015 End: 09-05-2015 Office outpatient visit 15 minutes Kathy Sifuentes [facility] Start: 08-26-2015 End: 08-26-2015 Periodic preventive med est patient 40-64yrs Kathy Napoles [facility] Start: 02-20-2015 End: 02-20-2015 Office outpatient visit 25 minutes Kathy [facility]es [facility] [facility] Start: 09-13-2014 End: 09-13-2014 Office outpatient visit 40 minutes Kathy Sifuentes [facility] Internal Medicine Start: 05-09-2014 End: 05-10-2014 Office outpatient visit 40 minutes Kathy Sifuentes [facility] Internal Medicine Start: 02-08-2014 End: 02-08-2014 Office outpatient visit 25 minutes Kathy Sifuentes [facility] Internal Medicine Start: 12-31-2013 End: 12-31-2013 Phone Encounter Kathy Maria [facility] Start: 12-24-2013 End: 12-24-2013 Refill Request Kathy Maria [facility] Start: 02-06-2013 End: 02-06-2013 Annotation/Addendum Kathy Maria [facility] Start: 02-06-2013 End: 02-06-2013 Office outpatient visit 25 minutes Kathy Sifuentes [facility] Internal Medicine Start: 10-02-2012 End: 10-02-2012 Patient encounter procedure Kathy Sifuentes [facility] Internal Medicine Start: 05-24-2012 End: 05-24-2012 Annotation/Addendum Kathy Sifuentes [facility] Start: 05-19-2012 End: 05-19-2012 Office outpatient visit 25 minutes Kathy Sifuentes [facility] Internal Medicine Start: 04-19-2012 End: 04-19-2012 Patient encounter procedure Kathy Sifuentes [facility] Internal [facility] Start: 04-11-2012 End: 04-11-2012 Annotation/Addendum Kathy Maria [facility] Start: 04-11-2012 End: 04-11-2012 Office outpatient visit 15 minutes Kathy Sifuentes [facility] Internal Medicine Start: 04-03-2012 End: 04-03-2012 Office outpatient visit 25 minutes Kathy Sifuentes [facility] Internal Medicine Start: 07-07-2011 End: 07-07-2011 Patient encounter procedure Kathy Sifuentes [facility] Internal Medicine Start: 06-17-2011 End: 06-17-2011 Patient encounter procedure Kathy Sifuentes [facility] Internal Medicine Start: 05-05-2011 End: 05-05-2011 Patient encounter procedure Kathy Sifuentes [facility] Internal Medicine Start: 02-11-2011 End: 02-11-2011 Patient encounter procedure Kathy Sifuentes [facility] Internal Medicine Start: 09-21-2010 End: 09-21-2010 Patient encounter procedure Kathy Sifuentes [facility] Internal Medicine Start: 05-14-2008 End: 05-14-2008 Historical Summary Kathy Sifuentes [facility] Start: 05-10-2008 End: 05-10-2008 Patient encounter procedure Kathy Sifuentes [facility] Internal Medicine Procedures Date Procedure Procedure Detail Performing Clinician Start: 08-08-[address] Jhonatan Merino DO Work Phone: Start: 08-08-2024 Hepatitis C antibody measurement Dr. Jhonatan Merino DO Work Phone: Comment on above: Reactive: Presumptive evidence of antibo dies to HCV. Follow CDC recommendations for supplemental testing.Non-Reactive: Antibodies to HCV were not detected; does not exclude the possibility of exposure to HCVReactive Results are presumptive evidence of antibodies to HCV. Follow CDC recommendations for supplemental testing.Order confirmation testing: HCV Quant by PCR testing - HCVPCR #[id number] Non Reactive: < 0.8 Equivocal: >/= 0.8 to < 1.0 Reactive: >/= 1.0The [facility] requires that a reactive/equivocal HCV antibody result be sent out for confirmation. HCV Quant by PCR testing. Start: 08-08-2024 Urnls dip stick/tablet reagent auto microscopy Dr. Jhonatan Merino DO Work Phone: Start: 07-12-2024 Assay of prostate specific antigen total Dr. Jhonatan Merino DO Work Phone: Comment on above: This test was performed using the TPSA a ssay method [facility]. Values obtained with differentassay methods cannot be used interchangably.When changing PSA assays in the course of monitoring apatient, additional sequential testing should be carriedout to confirm baseline values. Start: 12-17-2022 Antibody screen CATHY DALLAS Comment on above: Order Comment: Specimen Type: BLOOD SPEC IMENOrdering Facility: [facility] Address: [address] [place] [id number] Performed By: #### T SCR ####[facility] BLOOD BANKCLIA [id number] [place] [address] [place] Start: 12-17-2022 CT angiography of lower limb Start: 01-31-2019 End: 01-31-2019 NCS and/or EMG Patient Comments: See Note; NOTES: [facility] Pulmonary Services/Neurology [address] [place] [address] MR#: [id number] Acct: [id number] Name: JUSTA MARIANO Rep #: [id number] : 1945 73 From: Janny Robison MD Referring Dr: Cathy Dallas HOT WALKER-C Status: REG CLI Location: PSN Date: 01/31/19 Sex: M C NCS and/or EMG Patient Report Ordering Doctor: Cathy Dallas DATE OF SERVICE: 01/31/19 Justa Mariano is a 73-year-old male presents with complaints of numbness tingling and burning in both feet for the past several months. He presents today for electrodiagnostic testing of the lower limbs. Electrodiagnostic findings: Peroneal motor nerve demonstrates normal distal latency bilaterally with reduced amplitude on the right side and borderline reduced amplitude on the left side. Right tibial motor amplitude is decreased. Left tibial motor response within normal limits. Prolonged right superficial peroneal latency. Borderline prolonged right medial plantar response. H reflex prolonged bilaterally. Prolonged right tibial F waves. Prolonged peroneal F wave bilaterally. On needle EMG, all muscles tested in the lower limb showed no evidence of denervation with normal motor unit action potentials. Electrodiagnostic impression: This is an abnormal study. 1. 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 2. There is no electrodiagnostic evidence for lumbosacral radiculopathy. 3. There is no electrodiagnostic evidence for myopathy. If there are any further questions, please do not hesitate to contact me. 01/31/19 1301 <Electronically signed by Janny Robison MD> Date Janny Robison MD CC: HOT WALKER-C Cathy Dallas; Janny Robison MD Date Dictated: 01/31/19951 Date Transcribed: 01/31/19951 Manual Arts Therapist: KESHIA Signed Kathy Sifuentes Start: 01-24-2019 End: 01-24-2019 Foot min 3 Views Comments: See Note; NOTES: [facility] Imaging Services [address] [place] [address] Foot min 3 Views MR#: [id number] Acct: [id number] Name: JUSTA MARIANO Rep #: [id number] : 1945 M 73 From: Allie Marrufo DO PCP: GIANNI Garcia Status: REG CLI Study: Foot min 3 Views Date of Exam: 01/24/19 Exam# [id number] Ordering Dr: Cathy Dallas HISTORY:FOOT BURNING AND PAIN, NO TRAUMA FOOT BURNING AND PAIN, NO TRAUMA COMPARISON: None FINDINGS: # of images incl. paperwork: 3 XR Foot Min 3 Views: Right BONE AND JOINTS: No acute fracture or subluxation. Osteopenia. Decrease joint space at the first metatarsophalangeal joint. There is minimal hallux valgus as well as varus deformity of the second toe SOFT TISSUES: Atherosclerotic vascular disease No radiopaque foreign body. RAD/Foot min 3 Views IMPRESSION: No acute pathology Degenerative changes as discussed at 2219 Reported and signed by: Allie Marrufo DO Electronically Signed: Allie Marrufo DO at 22:18 EDT Tel , Service support , CC: GIANNI Dallas Manual Arts Therapist: Signed Cathy Dallas Work Phone: Start: 01-24-2019 End: 01-24-2019 HIP, UNI W/ Pelvis 2-3 Views Comments: See Note; NOTES: [facility] Services [address] [place] [address] HIP, UNI W/ Pelvis 2-3 Views MR#: [id number] Acct: [id number] Name: JUSTA MARIANO Rep #: [id number] : 1945 M 73 From: Allie Marrufo DO PCP: GIANNI Garcia Status: REG CLI Study: HIP, UNI W/ Pelvis 2-3 Views Date of Exam: 01/24/19 Exam# [id number] Ordering Dr: Cathy Dallas HISTORY:HIP PAIN, NO TRAUMA HIP PAIN, NO TRAUMA COMPARISON: None FINDINGS: # of images incl. paperwork: 3 XR Hip Unilateral with Pelvis when performed; 2-3 Views: Right BONE AND JOINTS: No acute fracture or subluxation. There is increased density is seen bilaterally but greater on the right in the region of the anterior inferior iliac spine. This may be secondary to prior trauma SOFT TISSUES: Unremarkable. No radiopaque foreign body. RAD/HIP, UNI W/ Pelvis 2-3 Views IMPRESSION: No acute pathology If symptoms persist consider mri for further evaluation if clinically indicated. at 2797 Reported and signed by: Allie Marrufo DO Electronically Signed: Allie Marrufo DO at 22:16 EDT Tel , Service support , CC: GIANNI Dallas Manual Arts Therapist: Signed Cathy Dallas Work Phone: Start: 12-14-2018 End: 12-14-2018 Cardiology Visit Report Comments: See Note; NOTES: [facility] [address] [place] [address]. [address] [place] [address] OFFICE VISIT Date of Service: 12/14/18 MR#: [id number] Acct: [id number] Name: JUSTA MARIANO Rep #: [id number] : 1945 Provider: Kael Kline MD Age/Sex: 73/M [place] [facility] Status: Signed [facility] History of Present Illness Details: JUSTA MARIANO, is a 73 M who presents to the office today for a cardiovascular outpatient follow-up. He has a history of coronary artery disease remotely with a MARTINEZ to LAD and SVG to PDA of RCA in May 1994. He also has history of hypertension and hyperlipidemia. Pt. denies chest, arm, jaw, or neck discomfort. His exercise tolerance is stable. Pt. denies symptoms of CHF, palpitations, lightheadedness, dizziness, near syncope, or syncopal episodes. Pt. denies claudication issues. Pt. denies orthopnea, and PND. His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 time later he beganto notice his leg swelling and he presented to the [facility] ER. He was found to have an expanding hematoma secondary to bleeding from profunda branch. He was transferred to [facility] as a trauma. At [facility], he was monitored and his hgb stabilized, they determined the bleeding stopped on its own and no surgical intervention was taken. He followed-up once with vascular surgery as an outpatient, he reports they performed doppler on his leg which showed satisfactory flow distal to the hematoma and they instructed him to wrap the hematoma/blisters with dry dressing which he has been doing. He states they toldhim the discoloration would spread down his leg and it would continue to get smaller. However, he notes the discoloration has actually been spreading more toward his groin, but he has been keeping his leg elevated during the day. He has significant associated pain, it really limits his ROM and his ability to keep up with daily activities. Subjective Subjective This week his pain has improved slightly. He is moving around a little better, for example he was able to walk into clinic today with assistance (versus WC). The hematoma has remained stable in size. At home, he primarily rests with his leg elevated. He has seen some bruising progress up into his groin and buttock. His lightheadedness has resolved and he is overall feeling a bit better. He is following up with his PCP next week and they are rechecking his Hgb levels at that time. Unfortunately, were not able to get his insurance to approve wound care supplies. So ultimately instead of Aquacel Ag to open areas, just ended up doing dry gauze wrap changed twice daily. Almost all of the blisters have ruptured, fortunately underneath the skin has so far been intact. There are a few small blisters remaining which are unruptured. He denies N/V, F/C. Objective Data Objective Data Vital Signs: Vital Signs Temp Pulse Resp BP 96.7 F L 70 18 131/42 H 12/31/22 09:09 12/31/22 09:09 12/31/22 09:09 12/31/22 09:09 Weight: 170 lb 12.573 oz Body Mass Index (BMI) 24.5 Charges/Coding Visit Charges Office Visits / Consults: 71243 OV L3 Est Physical Exam Const alert, oriented x3 and no apparent distress General Appearance: cooperative HEENT normocephalic, head/scalp atraumatic, hearing grossly normal bilaterally, external ears normal and external nose normal Eyes EOMs intact bilaterally Neck General: normal visual inspection and trachea midline Resp normal respiratory effort, no retractions and no use of accessory muscles Effort and Inspection: able to speak in complete sentences Cardio regular rate and regular rhythm Extremity Extremity Narrative: L thigh with large hematoma on the distal, medial aspect extending down to the knee. The skin/blisters have improved since last week, very minimal drainage at this point and only a few small blisters remaining. The skin integrity is intactoverall, no areas of necrosis or significant breakdown at this time. DP/PT pulses intact. Skin Wound Narrative: as described above Neuro oriented x3, CN's II-XII intact bilaterally, moves all extremities and no focal motor deficits Speech: speech normal Psych mental status grossly normal Appearance: grossly normal Activity / Motor Behavior: appropriate eye contact Debridement Note Debridement Note No debridement was completed: No debridement was completed today Post-Debridement Measurements and Additional Note: Post-Debridement Measurements/Treatment - Nurse 1 - General Ulcer Assessment Start: 12/24/22 08:00 Freq: Status: Active Protocol: [email or web address] Activity Type Activity Date Activity User E-sign Co-sign Detail Recorded Client Recorded Date Recorded By Document 12/24/22 08:10 GABRIELE [id number] 12/24/22 08:28 DL Document 12/31/22 09:09 [id number] 12/31/22 09:21 12/24/22 12/31/22 08:10 09:09 - Today's Visit Information Type of service Initial Visit Follow-up Visit (Physician/BENCH SCIENTIST ) Arrival Mode Ambulatory Ambulatory Transfer Assistance None Patient Identification Verified (Name & Yes Yes ) Patient Requires Transmission-Based No No Precautions Height and Weight Height 5 ft 10 in Weight 170 lb 12.573 oz Weight in Pounds 170.8 lbs Body Mass Index (BMI) 24.5 24.5 BMI Classification Normal Normal BSA - Yaa 1.95 Vital Signs Temperature (97.8 F-99.1 F) 97.5 F L 96.7 F L Temperature Source Temporal Temporal Pulse Rate (60-100) 83 70 Pulse Location Monitor Monitor Respiratory Rate (12-18) 22 H 18 Respiratory rate source Observation Observation Blood Pressure (90/60-120/80) 106/58 L 131/42 H Blood Pressure Mean (mm Hg) 74 71 Source Monitor Manual Position Sitting Blood Pressure Location Left Arm History Since Last Visit- (Skip if this is Patient's initial visit) Have you changed medications since your No last visit? Any new allergies or adverse reactions No Had a fall/change in ADL's that may No increase risk of falls Signs or symptoms of abuse and/or No neglect since last visit Have you been in the hospital since your No last visit? Has dressing in place as prescribed Yes Has compression in place as prescribed No Experienced any changes in pain level or No management Left Footwear Regular Shoe Right Footwear Regular Shoe Pain Scale: 0-10 Numeric Is Patient Pain Free? No No L Thigh -Description Sharp,Burning Sharp -Intensity 5 -Duration (hours) Acute Chronic -Pain Behavior Guarding, Irritability Withdrawal from Touch,Rubbing Site -Pain Aggravating Factors ADL's Changing Position -Alleviating Factors/Interventions Medication Turning/ Repositioning Lower Extremity Assessment/ Foot Assessment/ Toe Nail Assessment Left -Posterior Tibial Palpable No -Posterior Tibial Doppler Monophasic -Dorsalis Pedis Palpable No -Dorsalis Pedis Doppler Monophasic -Extremity Color Hemosiderin -Hair Growth on Legs No -Hair Growth on Toes No -Temperature of Extremity Cool -Capillary Refill Greater than 3 Seconds -Dependent Rubor No -Blanched when Elevated No -Lipodermatosclerosis No -Other Deformity No -Prior Foot Ulcer No -Charcot Joint No -Prior Amputation No -Thick No -Discolored No Right -Popliteal Doppler Multiphasic -Posterior Tibial Palpable Yes -Posterior Tibial Doppler Multiphasic -Dorsalis Pedis Palpable Yes -Extremity Color Hemosiderin -Hair Growth on Legs No -Hair Growth on Toes No -Temperature of Extremity Cool -Capillary Refill Greater than 3 Seconds -Dependent Rubor No -Blanched when Elevated No -Lipodermatosclerosis No -Other Deformity No -Prior Foot Ulcer No -Charcot Joint No -Prior Amputation No -Thick No -Discolored No -Deformed No -Improper Length & Hygeine No Neuropathy Assessment Feet - Top Side and Bottom <Entered> (a) Communication Assessment Preferred language American Able to Read Yes Able to Write Yes Right Hearing Abillity Hard of Hearing Left Hearing Abillity Hard of Hearing Visual Assistive Devices Glasses Teaching Assessment Preferences Verbal,Written, Demonstration Barriers to Learning None Readiness To Learn Good Willingness to Engage in Self Management Med Activies Readiness to Engage in Self Management Med Activities Anxiety Level Anxious Cooperation Cooperative Perception Coherent Interest in Health Problem Asks Questions Education Importance Acknowledges Need Does Patient Smoke tobacco or other No substances Smoking Status Former smoker Is Patient Diabetic No Functional Assessment Recent Decline in Ability to Perform Denies Any Declines Culture/Caodaism/Real Estate Development Manager Cultural/Caodaism Needs that may affect No Treatment Plan Would you allow our hospital automobile service station attendant to No meet you for the purpose of spiritual/ emotional support? Real Estate Development Manager to contact place of druze No Teaching: Wound Center *Welcome to the Wound Center -Person Taught Patient, Significant Other (a) 1 - + WC - Nurse 1 - General Ulcer Measurement Start: 12/24/22 08:00 Freq: Status: Active Protocol: Activity Type Activity Date Activity User E-sign Co-sign Detail Recorded Client Recorded Date Recorded By Document 12/24/22 08:10 DL [id number] 12/24/22 08:28 DL Document 12/31/22 09:09 JF [id number] 12/31/22 09:21 JF 12/24/22 12/31/22 08:10 09:09 Wound Center Nurse 1 L Thigh -Combined with other wound No -Current Size (cm) - Length 14 0.1 -Current Size (cm) - Width 17 0.1 -Current Size (cm) - Depth 0.1 0.1 -Total Square Cm 238 0.01 -Photo Taken Yes Yes -Epithelialization None Present -Tunneling No -Undermining/Tunneling No -Circular Undermining No -Exudate Amt Large -Exudate Type Serosanguineous -Wound Margin Distinct, Outline Attached -Granulation Amt None Present (0 %) -Necrosis Amt Large (67-100%) -Necrotic Tissue Type Adherent Slough -Structure Exposed N/A -Texture (Mitra-wound Skin Appearance) Localized Edema -Moisture (Mitra-wound Skin Appearance) Dry/Scaly -Color (Mitra-wound Skin Appearance) Ecchymosis, Erythema, Hemosiderin Staining -Temperature (Mitra-wound Skin No Abnormality Appearance) (Pt Warm) -Tenderness on Palpation (Mitra-wound No Skin Appearance) -Ulcer Cleansing Soap and Water -Foul Odor after Cleansing No -Wound Comment(s) left thigh middle of hematoma was 47 .3cm Lower Limb Edema Present Yes Left Calf (cm) 37 Left Ankle (cm) 22.7 WC - Nurse 3 - General Ulcer D/C NN Start: 12/24/22 08:00 Freq: Status: Active Protocol: Activity Type Activity Date Activity User E-sign Co-sign Detail Recorded Client Recorded Date Recorded By Document 12/24/22 09:27 DL [id number] 12/24/22 09:29 DL Document 12/31/22 09:58 MW [id number] 12/31/22 09:59 MW 12/24/22 12/31/22 09:27 09:58 Wound Care Center Nurse 3 L Thigh -Ulcer Cleansing Rinsed/ Irrigated with Saline -Foul Odor after Cleansing No -Primary Dressing Applied Aquacel AG 4x4 -Primary Dressing Covered/Secured with Dry Gauze & Dry Gauze & Roll Gauze, Roll Gauze, Secured with Secured with Tape Tape -Other Covering stockinette -Aquacel AG 4x4 3 Left -Multi-Layered Wrap Application Profore -Compression Wrap Marie Wrap Treatment Response Procedure Tolerated Well Pain Scale: 0-10 Numeric Is Patient Pain Free? No Yes L Thigh -Description Dull,Burning -Pain Behavior Rubbing Site -Pain Aggravating Factors ADL's -Alleviating Factors/Interventions Medication WC - Visit Discharge Discharge Condition Stable Stable Ambulatory Status Wheelchair Ambulatory Transportation Private Auto Private Auto Accompanied by Medication Reconcilliation completed & No provided to patient/care provider Clinical Summary of Care Provided Yes Assessment/Plan Assessment/Plan (1) Traumatic hematoma of left thigh: CODE(S): S70.12XA - Contusion of left thigh, initial encounter PLAN: Patient has significant hematoma of the L thigh with associated skin blistering. At this time, no signs/symptoms concerning for hematoma expansion orinfection. Again reiterated that there no good surgical options to address the hematoma. Body will continue to resorb the hematoma over time, but it will take a while, likely months until full resolution. In the meantime, we can act supportively ensuring proper wound care for blisters as they rupture and can address any debridement as may be needed for possible skin necrosis in the future. Reiterated that the bruising will continue to follow gravity, it may progress tohis thigh/groin if his leg is often elevated and will also progress down his legtoward his foot. Will continue with Kerlix wrap for dressing. Will attempt some compression as tolerated via MARIE wrap to help with edema. Patient and were shown how to apply MARIE wrap. He will continue with Tylenol PRN for pain. May also try ice/heat. I am out next week and then have a change of schedule so he will return to clinic in 3 weeks. He will call or return sooner as needed. 12/31/22 1547 <Electronically signed by Oly MUELLER> Cosigner Signature (if applicable): CC: ~ Signed [facility] Work Phone: [phone]) 988-521608-04-2023 History and physical note Author Oly Garduno [facility] December 24, 2022 1:23pm Note Date/Time December 24, 2022 11: 25am [facility] [address] [place] [address] H&P Exam - Wound Care 12/24/22 1124 MR#: [id number] Acct: [id number] Name: JUSTA MARIANO Rep #:[id number] : 1945 77 From: Oly MUELLER PCP: Dr. Jhonatan Merino, DO Status:REG RCR Location: History of Present Illness Date of Service: 12/24/22 Chief Complaint: L medial distal thigh hematoma History of Wound: Patient is a 77 y/o male who presents today for evaluation andmanagement of a L thigh hematoma. He is accompanied to his appointment today by his . Last week, the patient was tending to his lawn when he tripped with his legs scissor-ed over a wooden fence. With the fall, he felt a sharp pain but this dissipated quickly and he continued with his yard work. Some time later he beganto notice his leg swelling and he presented to the [facility] ER. He was found to have an expanding hematoma secondary to bleeding from profunda branch. He was transferred to [facility] as a trauma. At [facility], he was monitored and his hgb stabilized, they determined the bleeding stopped on its own and no surgical intervention was taken. He followed-up once with vascular surgery as an outpatient, he reports they performed doppler on his leg which showed satisfactory flow distal to the hematoma and they instructed him to wrap the hematoma/blisters with dry dressing which he has been doing. He states they toldhim the discoloration would spread down his leg and it would continue to get smaller. However, he notes the discoloration has actually been spreading more toward his groin, but he has been keeping his leg elevated during the day. He has significant associated pain, it really limits his ROM and his ability to keep up with daily activities. He has several associated blisters and a few of these have ruptured and are draining. He and his are both concerned about preventing infection, he has not been on any antibiotics and they have not been applying any antibiotic ointments/creams. He does report that over the last week, the size of the hematoma has remained stable. He expresses a lot of frustration over the fact that it does not seemed to have improved at all over the last week. [facility] Medical History Atherosclerosis of coronary artery of [place] heart without angina pectoris Essential (primary) hypertension Gout HLD (hyperlipidemia) Home Medications allopurinol 300 mg tablet 300 mg PO DAILY 03/25/14 [History Last Taken Unknown] aspirin 81 mg chewable tablet 81 mg PO DAILY@0800 06/02/18 [History Last Taken Unknown] acetaminophen 500 mg tablet 1,000 mg PO BID 12/01/21 [History Last Taken Unknown] losartan 100 mg tablet 100 mg PO DAILY #90 tabs 10/25/22 [Rx Last Taken Unknown] atenolol 50 mg tablet 50 mg PO QDAY #90 tabs 12/21/22 [Rx Last Taken Unknown] atorvastatin 10 mg tablet 10 mg PO QDAY #90 tabs 12/21/22 [Rx Last Taken Unknown] Allergy/AdvReac Type Severity Reaction Status Date / Time iodine Allergy Other Verified 12/21/22 14:59 simvastatin [From Zocor] AdvReac Severe Myalgias Verified 12/21/22 14:59 hydrochlorothiazide AdvReac Intermediate Other Verified 12/21/22 14:59 Family History Father CAD (coronary artery disease) Surgical History H/O coronary artery bypass surgery (05/1994) History of herniorrhaphy History of tonsillectomy Hx of cholecystectomy Social History Smoking Status: Former smoker Smokeless tobacco user: chewing tobacco how long ago did patient quit smoking: After [place] alcohol intake: current alcohol intake frequency: a few times a month Alcohol type: beer substance use type: does not use caffeine: Yes Type: coffee Number of servings: 3 Vital Signs Vital Signs Vital Signs: 12/24/22 08:10 Temperature 97.5 F L Temperature Source Temporal Pulse Rate 83 Respiratory Rate 22 H Blood Pressure 106/58 L Blood Pressure Mean 74 Blood Pressure Source Monitor Weight Weight: 170 lb 12.573 oz Body Mass Index (BMI) 24.5 Physical Exam Const alert, oriented x3 and no apparent distress General Appearance: cooperative HEENT normocephalic, head/scalp atraumatic, hearing grossly normal bilaterally, external ears normal and external nose normal Eyes EOMs intact bilaterally Neck General: normal visual inspection and trachea midline Resp normal respiratory effort, no retractions and no use of accessory muscles Effort and Inspection: able to speak in complete sentences Cardio regular rate and regular rhythm Extremity Extremity Narrative: L thigh with large hematoma on the distal, medial aspect extending down to the knee. There are multiple, scattered blisters a few of which have popped and are draining serous fluid. No necrotic tissue at this time. DP/PT pulses intact. Skin Wound Narrative: as described above Neuro oriented x3, CN's II-XII intact bilaterally, moves all extremities and no focal motor deficits Speech: speech normal Psych mental status grossly normal Appearance: grossly normal Activity / Motor Behavior: appropriate eye contact Debridement Note Debridement Note Wound debrided: L thigh hematoma and blisters Laterality: Left No debridement was completed: No debridement was completed today Post-Debridement Measurements and Additional Note: Post-Debridement Measurements/Treatment - Nurse 1 - General Ulcer Assessment Start: 12/24/22 08:00 Freq: Status: Active Protocol: PRAKASH.LOWAUDRAT Activity Type Activity Date Activity User E-sign Co-sign Detail Recorded Client Recorded Date Recorded By Document 12/24/22 08:10 GABRIELE [id number] 12/24/22 08:28 DL 12/24/22 08:10 - Today's Visit Information Type of service Initial Visit Arrival Mode Ambulatory Transfer Assistance None Patient Identification Verified (Name & Yes ) Patient Requires Transmission-Based No Precautions Height and Weight Height 5 ft 10 in Weight 170 lb 12.573 oz Weight in Pounds 170.8 lbs Body Mass Index (BMI) 24.5 BMI Classification Normal BSA - Yaa 1.95 Vital Signs Temperature (97.8 F-99.1 F) 97.5 F L Temperature Source Temporal Pulse Rate (60-100) 83 Pulse Location Monitor Respiratory Rate (12-18) 22 H Respiratory rate source Observation Blood Pressure (90/60-120/80) 106/58 L Blood Pressure Mean 74 Source Monitor Pain Scale: 0-10 Numeric Is Patient Pain Free? No L Thigh -Description Sharp,Burning -Duration (hours) Acute -Pain Behavior Guarding, Withdrawal from Touch,Rubbing Site -Pain Aggravating Factors ADL's -Alleviating Factors/Interventions Medication Lower Extremity Assessment/ Foot Assessment/ Toe Nail Assessment Left -Posterior Tibial Palpable No -Posterior Tibial Doppler Monophasic -Dorsalis Pedis Palpable No -Dorsalis Pedis Doppler Monophasic -Extremity Color Hemosiderin -Hair Growth on Legs No -Hair Growth on Toes No -Temperature of Extremity Cool -Capillary Refill Greater than 3 Seconds -Dependent Rubor No -Blanched when Elevated No -Lipodermatosclerosis No -Other Deformity No -Prior Foot Ulcer No -Charcot Joint No -Prior Amputation No -Thick No -Discolored No Right -Popliteal Doppler Multiphasic -Posterior Tibial Palpable Yes -Posterior Tibial Doppler Multiphasic -Dorsalis Pedis Palpable Yes -Extremity Color Hemosiderin -Hair Growth on Legs No -Hair Growth on Toes No -Temperature of Extremity Cool -Capillary Refill Greater than 3 Seconds -Dependent Rubor No -Blanched when Elevated No -Lipodermatosclerosis No -Other Deformity No -Prior Foot Ulcer No -Charcot Joint No -Prior Amputation No -Thick No -Discolored No -Deformed No -Improper Length & Hygeine No Neuropathy Assessment Feet - Top Side and Bottom <Entered> (a) Communication Assessment Preferred language American Able to Read Yes Able to Write Yes Right Hearing Abillity Hard of Hearing Left Hearing Abillity Hard of Hearing Visual Assistive Devices Glasses Teaching Assessment Preferences Verbal,Written, Demonstration Barriers to Learning None Readiness To Learn Good Willingness to Engage in Self Management Med Activies Readiness to Engage in Self Management Med Activities Anxiety Level Anxious Cooperation Cooperative Perception Coherent Interest in Health Problem Asks Questions Education Importance Acknowledges Need Does Patient Smoke tobacco or other No substances Smoking Status Former smoker Is Patient Diabetic No Functional Assessment Recent Decline in Ability to Perform Denies Any Declines Culture/Caodaism/Real Estate Development Manager Cultural/Caodaism Needs that may affect No Treatment Plan Would you allow our hospital automobile service station attendant to No meet you for the purpose of spiritual/ emotional support? Real Estate Development Manager to contact place of druze No Teaching: Wound Center *Welcome to the Wound Center -Person Taught Patient, Significant Other (a) 1 - + WC - Nurse 1 - General Ulcer Measurement Start: 12/24/22 08:00 Freq: Status: Active Protocol: Activity Type Activity Date Activity User E-sign Co-sign Detail Recorded Client Recorded Date Recorded By Document 12/24/22 08:10 DL [id number] 12/24/22 08:28 DL 12/24/22 08:10 Wound Center Nurse 1 L Thigh -Current Size (cm) - Length 14 -Current Size (cm) - Width 17 -Current Size (cm) - Depth 0.1 -Total Square Cm 238 -Photo Taken Yes -Exudate Amt Large -Exudate Type Serosanguineous -Wound Margin Distinct, Outline Attached -Granulation Amt None Present (0 %) -Necrosis Amt Large (67-100%) -Necrotic Tissue Type Adherent Slough -Structure Exposed N/A -Texture (Mitra-wound Skin Appearance) Localized Edema -Moisture (Mitra-wound Skin Appearance) Dry/Scaly -Color (Mitra-wound Skin Appearance) Ecchymosis, Erythema, Hemosiderin Staining -Temperature (Mitra-wound Skin No Abnormality Appearance) (Pt Warm) -Tenderness on Palpation (Mitra-wound No Skin Appearance) -Ulcer Cleansing Soap and Water -Foul Odor after Cleansing No Left Calf (cm) 37 Left Ankle (cm) 22.7 WC - Nurse 3 - General Ulcer D/C NN Start: 12/24/22 08:00 Freq: Status: Active Protocol: Activity Type Activity Date Activity User E-sign Co-sign Detail Recorded Client Recorded Date Recorded By Document 12/24/22 09:27 DL [id number] 12/24/22 09:29 DL 12/24/22 09:27 Wound Care Center Nurse 3 L Thigh -Ulcer Cleansing Rinsed/ Irrigated with Saline -Foul Odor after Cleansing No -Primary Dressing Applied Aquacel AG 4x4 -Primary Dressing Covered/Secured with Dry Gauze & Roll Gauze, Secured with Tape -Other Covering stockinette -Aquacel AG 4x4 3 Treatment Response Procedure Tolerated Well Pain Scale: 0-10 Numeric Is Patient Pain Free? No L Thigh -Description Dull,Burning -Pain Behavior Rubbing Site -Pain Aggravating Factors ADL's -Alleviating Factors/Interventions Medication WC - Visit Discharge Discharge Condition Stable Ambulatory Status Wheelchair Transportation Private Auto Accompanied by Charges/Coding Visit Charges Office Visits / Consults: [id number] OV L4 New Assessment/Plan Assessment/Plan (1) Traumatic hematoma of left thigh: CODE(S): S70.12XA - Contusion of left thigh, initial encounter PLAN: Patient has significant hematoma of the L thigh with associated skin blistering. At this time, no signs/symptoms concerning for hematoma expansion orinfection. I discussed with patient and his that unfortunately there are no good surgical options to address the hematoma. Body will continue to resorb the hematoma over time, but it will take a while, likely months until full resolution. In the meantime, we can act supportively ensuring proper wound care for blisters as they rupture and can address any debridement as may be needed for possible skin necrosis in the future. Will apply Aquacel Ag to the open areas, ABD pad, kerlix, and stockinette. Tubigrip/compression may be beneficial in the future when he is able to tolerate. Change the dressings at least once daily, more often as needed to keepclean and dry. We discussed that the bruising will follow gravity, it may progress to his thigh/groin if his leg is often elevated and will also progress down his leg toward his foot. He currently takes Tylenol PRN for pain, I offered prescription pain medication to be taken as needed but he declines at this time. He may use heat or ice if hefinds these helpful. He will return to clinic in 1 week. 12/24/22 1323 <Electronically signed by Oly MUELLER> Cosigner Signature (if applicable): CC: ~ Signed [facility] Work Phone: 1(483) 144-308708-01-2023 NoteHNO ID: [id number] Author: Ivett Alfredo APRN.BENCH SCIENTIST Service: ? Author Type: Nurse Practitioner Type: Progress Notes Filed: 12/21/2022 1:01 PM Note Text: Justa Mariano is a 77 year old male here for ED follow-up HPI: Justa comes to the office today for early follow-up from his ED stay over the weekend. Pt reports that he is doing OK. Has noticed significant change in his L thigh hematoma, and wondering what comes next. Has not popped any of the blisters because he was told not too. Has been wrapping as instructed in the hospital. Noticed worsening in color and many more blisters. Scant amount of drainage noted on wrap. No pain when sitting but notes significant discomfort with walking or moving leg. Takes tylenol and does not want anything more than that. PAST MEDICAL HISTORY Diagnosis Date Coronary atherosclerosis of unspecified type of vessel, [place] or graft Coronary artery disease Diverticulosis of colon (without mention of hemorrhage) Diverticulosis Pure hypercholesterolemia Unspecified essential hypertension PAST SURGICAL HISTORY Procedure Laterality Date CORONARY ARTERY BYP W/VEIN AND ARTERY GRAFT 2 VEIN 1995 CABG, two grafts LAPAROSCOPY SURG CHOLECYSTECTOMY Cholecystectomy, lap RPR 1ST INGUN HRNA AGE 5 YRS/> REDUCIBLE Rt ing hernia MEDICATIONS: Current Outpatient Medications Medication Sig Dispense Refill cholecalciferol, vitamin D3, (VITAMIN D3 ORAL) Take by mouth. losartan (COZAAR) 100 mg tablet Take 100 mg by mouth once daily. atenolol (TENORMIN) 50 mg tablet Take 50 mg by mouth once daily. aspirin, enteric coated (ASPIRIN, ENTERIC COATED) 81 mg EC tablet Take 81 mg by mouth once daily. DOXYLAMINE SUCCINATE (SLEEP AID ORAL) Take 2 tablets by mouth at bedtime as needed. (Patient not taking: Reported on 12/21/2022) HYDROCHLOROTHIAZIDE 25 MG TAB Take one(1) tablet daily. (Patient not taking: Reported on 12/21/2022) 0 ZOCOR 20 MG TAB Take one(1) tablet daily. (Patient not taking: Reported on 12/21/2022) 0 No current facility-administered medications for this visit. ALLERGIES Allergen Reactions Iodine injectible BP 132/62 Pulse 71 Ht 5' 10.5[Patient reports.[ (1.79m) Wt 165 lb (74.8kg) SpO2 100% BMI 23.33 kg/(m2). PHYSICAL EXAM: General Appearance: Well appearing, alert, in no acute distress, well-hydrated, well nourished. Skin: Skin color, texture, turgor normal, no suspicious rashes. L thigh hematoma evolving, as pictured below: * The above image(s) of the LEFT THIGH was/were taken on 12/21/22, with the verbal permission of the patient, for use in clinical documentation purposes only using an encrypted, [facility] approved device. All efforts were made to exclude or minimize identifying information and respect patient modesty and privacy. Head: Normocephalic, no masses, lesions, tenderness or abnormalities. Eyes: Anicteric sclera. Extraocular movements are intact. Ears: External ears normal, hearing is adequate. Neck: Supple. Lungs: Breathing is easy and unlabored. Extremities: No deformities, clubbing or cyanosis. Trace edema to LLE. LLE hematoma as noted above. Peripheral Pulses: Capillary refill <2secs, peripheral pulses with doppler. Neurologic: Gait not observed - wheelchair. Normal cognition and motor skills. Sensation and strength grossly intact. ASSESSMENT/PLAN: (T14.8XXA) Hematoma (primary encounter diagnosis) Comment: Hematoma site cleansed and wrapped; In direct consultation with Dr. Lopez, discussed with pt that this will continue to evolve over the next several days-weeks; It does appear that the large blister is due to pop soon - advised pt again NOT to pop any blisters, as they will on their own; Drainage will likely be water yellow/pink/brown, and may be quite copious; Will continue dry dressing for now; Pt and educated on dressings - once a blister opens, will use Adaptic over open area, so dry gauze does not stick; Continue to wrap with Kerlix; Will refer to Wound Care for ongoing wound management; Discussed again that there is no active bleeding, and that the bleeding had stopped (likely) before he was transferred to [facility] - no concern for further internal bleeding at this time Plan: CONSULT TO WOUND CENTER (AG) FOLLOW UP: Justa will follow-up as needed. He is encouraged to call with any questions or concerns. The patient is currently taking a statin: N/A The patient is currently taking aspirin: N/A I spent a total of 45 minutes on the date of the service which included preparing to see the patient, [id number] patient care, completing clinical documentation, obtaining and/or reviewing separately obtained history, performing a medically appropriate examination, counseling and educating the patient/family/caregiver, ordering medications, tests, or procedures, communicating with other HCPs (not separately reported), independently interpreting results (not separat (more content not included)... [facility]08-01-2023 Miscellaneous Notes* Telephone Encounter - Renetta Escobar - 12/21/2022 10:46 AM EDT Faxed the wound care referral to [facility] today at [phone] and ph#[phone] documented in this encounterC[facility]08-[facility]-2023 History of Present illness Narrative* Ivett Alfredo, [facility] - 12/21/2022 10:20 AM EDT Images from the original note were not included. Justa Mariano is a 77 year old male here for ED follow-up HPI: Justa comes to the office today for early follow-up from his ED stay over the weekend. Pt reports that he is doing OK. Has noticed significant change in his L thigh hematoma, and wondering what comes next. Has not popped any of the blisters because he was told not too. Has been wrapping as instructed in the hospital. Noticed worsening in color and many more blisters. Scant amount of drainage noted on wrap. No pain when sitting but notes significant discomfort with walking or moving leg. Takestylenol and does not want anything more than that. PAST MEDICAL HISTORY Diagnosis Date Coronary atherosclerosis of unspecified type of vessel, [place] or graft Coronary artery disease Diverticulosis of colon (without mention of hemorrhage) Diverticulosis Pure hypercholesterolemia Unspecified essential hypertension PAST SURGICAL HISTORY Procedure Laterality Date CORONARY ARTERY BYP W/VEIN & ARTERY GRAFT 2 VEIN 1995 CABG, two grafts LAPAROSCOPY SURG CHOLECYSTECTOMY Cholecystectomy, lap RPR 1ST INGUN HRNA AGE 5 YRS/> REDUCIBLE Rt ing hernia MEDICATIONS: Current Outpatient Medications Medication Sig Dispense Refill cholecalciferol, vitamin D3, (VITAMIN D3 ORAL) Take by mouth. losartan (COZAAR) 100 mg tablet Take 100 mg by mouth once daily. atenolol (TENORMIN) 50 mg tablet Take 50 mg by mouth once daily. aspirin, enteric coated (ASPIRIN, ENTERIC COATED) 81 mg EC tablet Take 81 mg by mouth once daily. DOXYLAMINE SUCCINATE (SLEEP AID ORAL) Take 2 tablets by mouth at bedtime as needed. (Patient not taking: Reported on 12/21/2022) HYDROCHLOROTHIAZIDE 25 MG TAB Take one(1) tablet daily. (Patient not taking: Reported on 12/21/2022) 0 ZOCOR 20 MG TAB Take one(1) tablet daily. (Patient not taking: Reported on 12/21/2022) 0 No current facility-administered medications for this visit. ALLERGIES Allergen Reactions Iodine injectible BP 132/62 Pulse 71 Ht 5' 10.5[Patient reports.[ (1.79m) Wt 165 lb (74.8kg) SpO2 100% BMI23.33 kg/(m^2). PHYSICAL EXAM: General Appearance: Well appearing, alert, in no acute distress, well-hydrated, well nourished. Skin: Skin color, texture, turgor normal, no suspicious rashes. L thigh hematoma evolving, as pictured below: * The above image(s) of the LEFT THIGH was/were taken on 12/21/22, with the verbal permission of the patient, for use in clinical documentation purposes only using an encrypted, [facility] approved device. All efforts were made to exclude or minimize identifying information and respect patient modesty and privacy. Head: Normocephalic, no masses, lesions, tenderness or abnormalities. Eyes: Anicteric sclera. Extraocular movements are intact. Ears: External ears normal, hearing is adequate. Neck: Supple. Lungs: Breathing is easy and unlabored. Extremities: No deformities, clubbing or cyanosis. Trace edema to LLE. LLE hematoma as noted above. Peripheral Pulses: Capillary refill <2secs, peripheral pulses with doppler. Neurologic: Gait not observed - wheelchair. Normal cognition and motor skills. Sensation and strength grossly intact. ASSESSMENT/PLAN: (T14.8XXA) Hematoma (primary encounter diagnosis) Comment: Hematoma site cleansed and wrapped; In direct consultation with Dr. Lopez, discussed with pt that this will continue to evolve over the next several days-weeks; It does appear that the large blister is due to pop soon - advised pt again NOT to pop any blisters, as they will on their own; Drainage will likely be water yellow/pink/brown, and may be quite copious; Will continue dry dressing for now; Pt and educated on dressings - once a blister opens, will use Adaptic over open area, so dry gauze does not stick; Continue to wrap with Kerlix; Will refer to Wound Care for ongoingwound management; Discussed again that there is no active bleeding, and that the bleeding had stopped (likely) before he was transferred to [facility] - no concern for further internal bleeding at this time Plan: CONSULT TO WOUND CENTER (AG) FOLLOW UP: Justa will follow-up as needed. He is encouraged to call with any questions or concerns. The patient is currently taking a statin: N/A The patient is currently taking aspirin: N/A I spent a total of 45 minutes on the date of the service which included preparing to see the patient, [id number] patient care, completing clinical documentation, obtaining and/or reviewing separately obtained history, performing a medically appropriate examination, counseling and educating the pat ient/family/caregiver, ordering medications, tests, or procedures, communicating with other HCPs (not separately reported), independently interpreting results (not separately reported), communicatingresults to the patient/family/caregiver, and care coordination (not separately reported). Ivett Alfredo APRN.CNP [facility] encounter[facility] Instructions* Patient Instructions* Ivett Alfredo APRN.CNP - 12/21/2022 10:06 AM EDT Ivett Alfredo phone # [phone] documented in this encounterC[facility]07-29-2023 NoteHNO ID: [id number] Author: Sandra Lopez MD Service: Vascular Surgery Author Type: Physician Type: Progress Notes Filed: 12/24/2022 8:10 AM Note Text: Documentation Query Based on your medical judgment of the clinical indicators outlined below, please clarify the condition: (Please type X next to your response and sign) Clinical Indicators: 12/17/22 18:02 12/17/22 21:47 12/18/22 03:11 12/18/22 09:18 Hemoglobin 12.0 10.9 9.9 8.7 12/17 ED provider He presented to the emergency department with a massively swollen left thigh and a systolic blood pressure in the 70s.They were able to normalize his blood pressure with IV fluid resuscitation only.They were able to perform a CT of his left lower extremity with IV contrast.It revealed a large intramuscular hematoma with active bleeding which the radiologist felt was arising from the profundus femorous artery...His hemoglobin was stable there, and they did not initiate any blood transfusions 12/17 History and physical considering stable hgb, vital signs, extravasation has most likely stopped monitor q6h cbc and vitals no blood requirements thus far discussed CTA; most likely extrav was from small branch of sfa rather than profunda Please clarify type of anemia X Acute Blood Loss Other, please specify [facility]07-28-2023 Discharge summary Author Kathryn Gloria [facility] December 17, 2022 3:37pm Note Date/Time December 17, 2022 3:11 pm [facility] Medical Records Department [address] [place] [address] Emergency Department Summary 12/17/22 MR#: [id number] Acct: [id number] Name: JUSTA MARIANO Rep #:[id number] : 1945 77 From: Kathryn Pickard PCP: Dr. Jhonatan Merino, DO Status:REG ER Location: ED HPI History of Present Illness Chief Complaint: Lower Extremity Injury Informant: patient and spouse/S.O. Narrative Narrative: Patient is a 77-year-old male with history of coronary artery disease status post bypass, hypertension hyperlipidemia presenting with lightheadedness and injury to his left thigh. Patient was out mowing the lawn. He tried to step over a small fence and lost his balance. He fell. He got himself back up and continued to work on the lawn however he then noticed that he started to have significant swelling of the left thigh/ knee area. Patient notes his blood pressures usually elevated. Denies any other injuries. Does have chronic neuropathy but denies any abnormal numbness or tingling of his legs. Takes a daily aspirin is not on any anticoagulation. No other complaints or concerns at this time. [facility] Medical History Atherosclerosis of coronary artery of [place] heart without angina pectoris Essential (primary) hypertension Gout HLD (hyperlipidemia) Home Medications allopurinol 300 mg tablet 300 mg PO DAILY 03/25/14 [History Last Taken Unknown] nitroglycerin 0.4 mg sublingual tablet (Nitrostat) 0.4 mg sublingual Q5M 10/10/17 [History Last Taken Unknown] aspirin 81 mg chewable tablet 81 mg PO DAILY@0800 06/02/18 [History Last Taken Unknown] acetaminophen 500 mg tablet 1,000 mg PO BID 12/01/21 [History Last Taken Unknown] atenolol 50 mg tablet 50 mg PO QDAY #90 tabs 12/01/21 [Rx Last Taken Unknown] atorvastatin 10 mg tablet 10 mg PO QDAY #90 tabs 12/01/21 [Rx Last Taken Unknown] losartan 100 mg tablet 100 mg PO DAILY #90 tabs 10/25/22 [Rx Last Taken Unknown] Allergy/AdvReac Type Severity Reaction Status Date / Time iodine Allergy Other Verified 12/17/22 14:10 simvastatin [From Zocor] AdvReac Severe Myalgias Verified 12/17/22 14:10 hydrochlorothiazide AdvReac Intermediate Other Verified 12/17/22 14:10 Family History Father CAD (coronary artery disease) Surgical History H/O coronary artery bypass surgery (05/1994) History of herniorrhaphy History of tonsillectomy Hx of cholecystectomy Social History Smoking Status: Former smoker Smokeless tobacco user: chewing tobacco how long ago did patient quit smoking: After [place] alcohol intake: current alcohol intake frequency: a few times a month Alcohol type: beer substance use type: does not use caffeine: Yes Type: coffee Number of servings: 3 ROS ROS ED Constitutional Constitutional ED: Reports sweats Eyes Eyes: Denies change in vision Cardiovascular Cardiovascular: Denies chest pain Respiratory/Chest Respiratory/Chest: Denies cough or dyspnea Gastrointestinal Gastrointestinal: Denies nausea or vomiting Musculoskeletal Musculoskeletal: Reports other Details: left knee pain and swelling Integumentary Denies rash Neurologic Neurologic: Reports paresthesias; Denies weakness Psychiatric Psychiatric: Denies anxiety Hematologic/Lymphatic Hematologic/Lymphatic: Denies easy bleeding or easy bruising EXAM Physical Exam Const Vital Signs: 12/17/22 14:11 12/17/22 14:15 12/17/22 14:53 Temperature 98 F 95.5 F L Temperature Source Temporal Temporal Pulse Rate 67 61 55 L Respiratory Rate 14 12 18 Blood Pressure 78/57 L 98/64 140/61 H Blood Pressure Mean 64 75 87 Pulse Ox 96 93 100 Oxygen Delivery Method Room Air Room Air Room Air Positive well nourished and well developed Constitutional Narrative: Diaphoretic, pale, no acute distress General Appearance ED: well developed HEENT Reports moist mucous membranes Neck supple Chest Wall inspection of chest normal and palpation of chest normal Resp normal respiratory effort and clear to auscultation bilaterally Cardio regular rate, regular rhythm and no murmurs Cardio Narrative: 2+ DP pulses GI non-tender, non-distended and no masses Extremity Extremity Narrative: Decreased range of motion of the left knee secondary to swelling. Large area ofsoft tissue swelling of the medial distal femur into the knee with overlying ecchymosis. No pulsatile mass but this is consistent with an expanding hematoma. The area is quite firm to palpation. The compartments themselves aresoft at this time. Neuro oriented x3 Sensorium / Orientation: alert Skin Skin Narrative: Ecchymosis to the left distal femur/knee area MDM MDM MDM Narrative Medical decision making narrative: Patient evaluated for swelling, hypotension and mild discomfort to his left thigh. There is a low mechanism trauma associated with this. Physical exam is highly concerning for expanding hematoma. Patient is fluid resuscitated with IVfluids and has good improvement. He is mildly bradycardic in the ER but I suspect this is from his atenolol. He has clinical improvement as well with IV fluids. CTA of the lower extremity is consistent with a hematoma with active arterial bleeding of the distal profundus fomoris vessel. As we do not currently have IR or vascular coverage will transfer to a larger facility. Discussed with the [facility] transfer line and patient is excepted as a trauma patient. Case discussed with Dr. Deleno. Patient is agreeable this plan of care. On repeat evaluation he remains stable and I do not think requires critical care transport/[facility] at this time. Discussed with transfer that if he were to become unstable they should place a tourniquet on his mid thigh proximal to where the hematoma is. They are agreeable with this. Tight pressure dressing with Marie wrap is applied to the leg while in the emergency room. Lab Data Labs: Laboratory Results - last 24 hr 12/17/22 14:20 PT 13.7 INR 1.1 APTT 28.0 Sodium 140 Potassium 4.3 Chloride 107 Carbon Dioxide 26.0 Anion Gap 7 BUN 22 H Creatinine 1.15 Estim Creat Clear Calc 55.54 Est GFR (MDRD) Af Amer 79 Est GFR (MDRD) Non-Af 66 BUN/Creatinine Ratio 19.1 Glucose 153 H Calcium 8.8 Total Bilirubin 0.70 AST 16 ALT 24 Alkaline Phosphatase 63 Total Protein 6.2 L Albumin 3.4 Globulin 2.8 Albumin/Globulin Ratio 1.2 Radiography Diagnostic Testing: Clinical Impression(s) from Imaging Studies Lower Extremity CTA 12/17/22 14:40 IMPRESSION: Large heterogeneous hematoma in the medial aspect of the mid and distal left thigh with focal area of active bleeding along its distal portion as described. Overlying subcutaneous edema and skin thickening. Electronically Signed: Dav Parikh MD at 15:03 EDT , Management Discussion w/another healthcare provider: Security Support Analyst Critical Care Time Critical Care Time: Yes Critical care time (excluding procedures): 30-74 minutes (40), Discussing w/Patient &/or Family/Personal Financial Counselor and Arranging Admission or Transfer Discharge Plan Triage Chief Complaint: Lower Extremity Injury ED Provider: Kathryn Gloria Dx/Rx/DC Orders Clinical Impression: Traumatic hematoma of left thigh, Arterial hemorrhage Prescriptions: No Action nitroglycerin [Nitrostat] 0.4 mg tablet, sublingual 0.4 mg SUBLINGUAL Q5M Patient Comments: X 3 acetaminophen 500 mg tablet 1,000 mg PO BID atenolol 50 mg tablet 50 mg PO QDAY Qty: 90 3RF atorvastatin 10 mg tablet 10 mg PO QDAY Qty: 90 3RF allopurinol 300 MG tablet 300 mg PO DAILY aspirin 81 mg tablet,chewable 81 mg PO DAILY@0800 losartan 100 mg tablet 100 mg PO DAILY Qty: 90 3RF Primary Care Provider: Jhonatan Merino Referrals: Jhonatan Merino DO [Primary Care Provider] - Disposition Disposition: Acute Care Hospital [facility] What to do if you have Problems For any increased pain, shortness of breath, bleeding, nausea or vomiting, chestpain, or any unexpected problems, contact your Primary Care Provider. Call [facility] ([phone]) or report to the closest Emergency Room. Call 911 if necessary. 12/17/22 1537 <Electronically signed by Kathryn Gloria DO> Cosigner Signature (if applicable): CC: Dr. 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 documented as of this encounter (statuses as of 12/21/2022) [facility] Evaluation note* Diagnosis Onset Date Resolution Status Essential (primary) hypertension chronic HLD (hyperlipidemia) chronic H/O coronary artery bypass surgery May, resolved [facility] Work Phone: Evaluation + Plan note Future Appointments Appointment Date:07/15/2021 02:30:00 PM Scheduled Provider:JHONATAN MERINO DO Location:[facility] Appointment Type: OV Future Scheduled Tests Laboratory* Basic Metabolic Panel 11/28/20 * Uric Acid 11/28/20 * Complete Blood Count 11/28/20 [facility] Evaluation + Plan note Future Appointments Appointment Date:11/24/2021 11:00:00 AM Scheduled Provider:JHONATAN MERINO DO Location:[facility] Appointment Type:PC OV [facility] Evaluation + Plan note Future Appointments Appointment Date:03/16/2022 08:30:00 AM Scheduled Provider:JHONATAN MERINO DO Location:[facility] Appointment Type:PC OV Follow Up [facility] Evaluation + Plan note Future Appointments Appointment Date:2022 09:00:00 AM Scheduled Provider:JHONATAN MERINO DO Location:[facility] Appointment Type:PC OV Future Scheduled Tests Laboratory* Lead, Blood 09/14/22 * Uric Acid 09/14/22 * Complete Blood Count 09/14/22 * Lipid Profile 09/14/22 * Complete Metabolic Panel 09/14/22 [facility] Evaluation + Plan note Future Appointments Appointment Date:11/02/2022 09:30:00 AM Scheduled Provider:JHONATAN MERINO DO Location:[facility] Appointment Type:PC OV Diagnostic Tests Pending * Lead, Blood 10/19/22 [facility] Evaluation + Plan note Future Appointments Appointment Date:01/10/2023 04:30:00 PM Scheduled Provider:JHONATAN MERINO DO Location:[facility] Appointment Type:PC OV Appointment Date:03/15/2023 09:00:00 AM Scheduled Provider:JHONATAN MERINO DO Location:[facility] Appointment Type: Wellness Medicare Future Scheduled Tests Laboratory* Lead, Blood 11/02/22 * C-Reactive Protein 11/02/22 * Uric Acid 11/02/22 * Complete Blood Count 11/02/22 * Complete Blood Count 12/23/22 * Lipid Profile 11/02/22 * Albumin/Creatinine Ratio, Random Urine 11/02/22 * Sedimentation Rate Automated 11/02/22 * Vitamin D Level 11/02/22 * Complete Metabolic Panel 11/02/22 [facility] evaluation + Plan note Future Appointments Appointment Date:03/15/2023 09:00:00 AM Scheduled Provider:JHONATAN MERINO DO Location:[facility] Appointment Type: Wellness Medicare Diagnostic Tests Pending * Lead, Blood 03/14/23 Future Scheduled Tests Laboratory* Complete Blood Count 11/02/22 * Albumin/Creatinine Ratio, Random Urine 11/02/22 [facility] Evaluation + Plan note Future Appointments Appointment Date:05/24/2023 10:30:00 AM Scheduled Provider:JHONATAN MERINO DO Location:[facility] Appointment Type:PC OV Future Scheduled Tests Laboratory* Complete Blood Count 11/02/22 * Albumin/Creatinine Ratio, Random Urine 11/02/22 [facility] Evaluation + Plan note Future Appointments Appointment Date:01/27/2024 01:30:00 PM Scheduled Provider:JHONATAN MERINO DO Location:[facility] Appointment Type:PC OV Diagnostic Tests Pending * Lead, Blood (Adult >=16 yrs) 01/18/24 Future Scheduled Tests Laboratory* Lead, Blood (Adult >=16 yrs) 01/27/24 * Ferritin 01/27/24 * Uric Acid 01/27/24 * A1C Hemoglobin 01/27/24 * Complete Blood Count 01/27/24 * Lipid Profile 01/27/24 * Albumin/Creatinine Ratio, Random Urine 01/27/24 * Complete Metabolic Panel 01/27/24 Radiology* XR Knee 1 or 2 Views Left 07/27/23 [facility] Evaluation + Plan note Future Appointments Appointment Date:10/09/2024 08:30:00 AM Scheduled Provider:JHONATAN MERINO DO Location:[facility] Appointment Type:PC OV Diagnostic Tests Pending * Lead, Blood (Adult >=16 yrs) 07/03/24 * Vitamin B1 (Thiamine), Blood 07/03/24 * GEMMA by IFA Screen 07/03/24 * Rheumatoid Factor 07/03/24 * Cytoplasmic Neutro. Antibody 07/03/24 Future Scheduled Tests Laboratory* Albumin/Creatinine Ratio, Random Urine 07/03/24 Radiology* XR Knee 1 or 2 Views Left 07/27/23 [facility] evaluation noteNo assessment information available [facility] Work Phone: evaluation note* Diagnosis Hematoma- Primary Contusion of unspecified site documented in this encounter [facility] course Narrative No data available for this section [facility] Hospital Discharge instructions No data available for this section [facility] Hospital Discharge instructions Additional Instructions Your hemoglobin/blood volume is low today consistent with your recent left thigh bleed. Please have your blood counts rechecked in the next 2 to 3 days to make sure they are holding stable. If you develop dizziness or passing out or have any further concerns please return to the hospital for repeat evaluation.[facility] Work Phone: Progress note No data available for this section [facility] Reason for referral (narrative)No reason for referral information availableWGrand Lake Joint [facility] Work Phone: Summary Purpose Family History No Family History Records FoundUnknown Family Member Name Dates Details Brother 1 Comments:CABG Status:Active Father Comments:CAD Status:Active Mother Comments:HTN Status:Active Unknown Family Member Name Dates Details Brother 1 Comments:CABG Status:Active Father Comments:CAD Status:Active Mother Comments:HTN Status:Active Unknown Family Member Name Dates Details Brother 1 Comments:CABG Status:Active Father Comments:CAD Status:Active Mother Comments:HTN Status:Active Unknown Family Member Name Dates Details Brother 1 Comments:CABG Status:Active Father Comments:CAD Status:Active Mother Comments:HTN Status:Active Unknown Family Member Name Dates Details Brother 1 Comments:CABG Status:Active Father Comments:CAD Status:Active Mother Comments:HTN Status:Active Unknown Family Member Name Dates Details Brother 1 Comments:CABG Status:Active Father Comments:CAD Status:Active Mother Comments:HTN Status:Active Unknown Family Member Name Dates Details Brother 1 Comments:CABG Status:Active Father Comments:CAD Status:Active Mother Comments:HTN Status:Active Unknown Family Member Name Dates Details Brother 1 Comments:CABG Status:Active Father Comments:CAD Status:Active Mother Comments:HTN Status:Active Unknown Family Member Name Dates Details Brother 1 Comments:CABG Status:Active Father Comments:CAD Status:Active Mother Comments:HTN Status:Active Unknown Family Member Name Dates Details Brother 1 Comments:CABG Status:Active Father Comments:CAD Status:Active Mother Comments:HTN Status:Active Unknown Family Member Name Dates Details Brother 1 Comments:CABG Status:Active Father Comments:CAD Status:Active Mother Comments:HTN Status:Active Unknown Family Member Name Dates Details Brother 1 Comments:CABG Status:Active Father Comments:CAD Status:Active Mother Comments:HTN Status:Active Unknown Family Member Name Dates Details Brother 1 Comments:CABG Status:Active Father Comments:CAD Status:Active Mother Comments:HTN Status:Active Unknown Family Member Name Dates Details Brother 1 Comments:CABG Status:Active Father Comments:CAD Status:Active Mother Comments:HTN Status:Active Unknown Family Member Name Dates Details Brother 1 Comments:CABG Status:Active Father Comments:CAD Status:Active Mother Comments:HTN Status:Active Unknown Family Member Name Dates Details Brother 1 Comments:CABG Status:Active Father Comments:CAD Status:Active Mother Comments:HTN Status:Active Unknown Family Member Name Dates Details Brother 1 Comments:CABG Status:Active Father Comments:CAD Status:Active Mother Comments:HTN Status:Active Relationship Condition Age at Onset Recorded Date/T mireille father Coronary artery disease Unknown Advance Directives No Advanced Directives Records Found Advance Directive Response Recorded Date/ Time Living Will Yes March 25 1:30pm Power of [place] Line Attendant Yes March 25, 2014 1:30pm Advance Directive Response Recorded Date/ Time Living Will Yes December 17, 2022 2:15pm Power of [place] Line Attendant Yes December 17 2:15pm Name of Medical Power of [place] Line Attendant December 17, 2022 2:15pm Advance Directive Response Recorded Date/ Time Living Will No December 20, 2022 12:21am Power of [place] Line Attendant No December 20 12:21am Name of Medical Power of [place] Line Attendant December 17, 2022 2:15pm Advance Directive Response Recorded Date/ Time Living Will No December 20, 2022 12:21am Power of [place] Line Attendant No December 20 12:21am Instructions Name Dates Details Nonsmoker : How to access he alth information online Indication:Nonsmoker Nonsmoker : How to access he alth information online - Detail Indication:Nonsmoker Nonsmoker : Patient Instruct ions Indication:Nonsmoker Impaired fasting glucose : H ow to access health information online Indication:Impaired fasting glucose Impaired fasting glucose : H ow to access health information online - Detail Indication:Impaired fasting glucose Impaired fasting glucose : P atient Instructions Indication:Impaired fasting glucose Hypertension, benign : DISCO NTINUED - LIPID PANEL (67923) Indication:Hypertension, benign Olecranon bursitis : How to access health information online Indication:Olecranon bursitis Olecranon bursitis : How to access health information online - Detail Indication:Olecranon bursitis Olecranon bursitis : Patient Instructions Indication:Olecranon bursitis Screening PSA (prostate spec ific antigen) : Patient Instructions Indication:Screening PSA (prostate specific antigen) Cellulitis of elbow : Patien t Instructions Indication:Cellulitis of elbow Cellulitis of elbow : How to access health information online Indication:Cellulitis of elbow Cellulitis of elbow : How to access health information online - Detail Indication:Cellulitis of elbow Abnormal blood chemistry : P atient Instructions Indication:Abnormal blood chemistry Gout : How to access health information online Indication:Gout Gout : How to access health information online - Detail Indication:Gout Gout : Patient Instructions Indication:Gout Anxiety : How to access heal th information online Indication:Anxiety Anxiety : How to access heal th information online - Detail Indication:Anxiety Anxiety : Patient Instructio ns Indication:Anxiety Gout attack : Patient Instru ctions Indication:Gout attack Gout, unspecified : Patient Instructions Indication:Gout, unspecified Name Dates Details Nonsmoker : How to access he alth information online Indication:Nonsmoker Nonsmoker : How to access he alth information online - Detail Indication:Nonsmoker BMI 25.0-25.9,adult : Patien t Instructions Indication:BMI 25.0-25.9,adult Nonsmoker : Patient Instruct ions Indication:Nonsmoker Impaired fasting glucose : H ow to access health information online Indication:Impaired fasting glucose Impaired fasting glucose : H ow to access health information online - Detail Indication:Impaired fasting glucose Impaired fasting glucose : P atient Instructions Indication:Impaired fasting glucose Hypertension, benign : DISCO NTINUED - LIPID PANEL (12670) Indication:Hypertension, benign Olecranon bursitis : How to access health information online Indication:Olecranon bursitis Olecranon bursitis : How to access health information online - Detail Indication:Olecranon bursitis Olecranon bursitis : Patient Instructions Indication:Olecranon bursitis Screening PSA (prostate spec ific antigen) : Patient Instructions Indication:Screening PSA (prostate specific antigen) Cellulitis of elbow : Patien t Instructions Indication:Cellulitis of elbow Cellulitis of elbow : How to access health information online Indication:Cellulitis of elbow Cellulitis of elbow : How to access health information online - Detail Indication:Cellulitis of elbow Abnormal blood chemistry : P atient Instructions Indication:Abnormal blood chemistry Gout : How to access health information online Indication:Gout Gout : How to access health information online - Detail Indication:Gout Gout : Patient Instructions Indication:Gout Anxiety : How to access heal th information online Indication:Anxiety Anxiety : How to access heal th information online - Detail Indication:Anxiety Anxiety : Patient Instructio ns Indication:Anxiety Gout attack : Patient Instru ctions Indication:Gout attack Gout, unspecified : Patient Instructions Indication:Gout, unspecified Name Dates Details Nonsmoker : How to access he alth information online Indication:Nonsmoker Nonsmoker : How to access he alth information online - Detail Indication:Nonsmoker Nonsmoker : Patient Instruct ions Indication:Nonsmoker BMI 25.0-25.9,adult : Patien t Instructions Indication:BMI 25.0-25.9,adult Impaired fasting glucose : H ow to access health information online Indication:Impaired fasting glucose Impaired fasting glucose : H ow to access health information online - Detail Indication:Impaired fasting glucose Impaired fasting glucose : P atient Instructions Indication:Impaired fasting glucose Hypertension, benign : DISCO NTINUED - LIPID PANEL ([id number]) Indication:Hypertension, benign Olecranon bursitis : How to access health information online Indication:Olecranon bursitis Olecranon bursitis : How to access health information online - Detail Indication:Olecranon bursitis Olecranon bursitis : Patient Instructions Indication:Olecranon bursitis Screening PSA (prostate spec ific antigen) : Patient Instructions Indication:Screening PSA (prostate specific antigen) Cellulitis of elbow : Patien t Instructions Indication:Cellulitis of elbow Cellulitis of elbow : How to access health information online Indication:Cellulitis of elbow Cellulitis of elbow : How to access health information online - Detail Indication:Cellulitis of elbow Abnormal blood chemistry : P atient Instructions Indication:Abnormal blood chemistry Gout : How to access health information online Indication:Gout Gout : How to access health information online - Detail Indication:Gout Gout : Patient Instructions Indication:Gout Anxiety : How to access heal th information online Indication:Anxiety Anxiety : How to access heal th information online - Detail Indication:Anxiety Anxiety : Patient Instructio ns Indication:Anxiety Gout attack : Patient Instru ctions Indication:Gout attack Gout, unspecified : Patient Instructions Indication:Gout, unspecified Name Dates Details How to access health informa tion online Indication:Nonsmoker Start:04-Sep-2018 Instruction Type:Patient Education How to access health informa tion online - Detail Indication:Nonsmoker Start:04-Sep-2018 Instruction Type:Patient Education Patient Instructions Indication:Nonsmoker Start:04-Sep-2018 Instruction Type:Provider Instructions for Treatment How to access health informa tion online Indication:Nonsmoker Start:16-Aug-2018 Instruction Type:Patient Education How to access health informa tion online - Detail Indication:Nonsmoker Start:16-Aug-2018 Instruction Type:Patient Education Patient Instructions Indication:BMI 25.0-25.9,adult Start:16-Aug-2018 Instruction Type:Provider Instructions for Treatment How to access health informa tion online Indication:Nonsmoker Start:24-Feb-2018 Instruction Type:Patient Education How to access health informa tion online - Detail Indication:Nonsmoker Start:24-Feb-2018 Instruction Type:Patient Education Patient Instructions Indication:Nonsmoker Start:24-Feb-2018 Instruction Type:Provider Instructions for Treatment How to access health informa tion online Indication:Nonsmoker Start:17-Feb-2018 Instruction Type:Patient Education How to access health informa tion online - Detail Indication:Nonsmoker Start:17-Feb-2018 Instruction Type:Patient Education Patient Instructions Indication:Nonsmoker Start:17-Feb-2018 Instruction Type:Provider Instructions for Treatment How to access health informa tion online Indication:Impaired fasting glucose Start:30-Nov-2017 Instruction Type:Patient Education How to access health informa tion online - Detail Indication:Impaired fasting glucose Start:30-Nov-2017 Instruction Type:Patient Education Patient Instructions Indication:Impaired fasting glucose Start:30-Nov-2017 Instruction Type:Provider Instructions for Treatment DISCONTINUED - LIPID PANEL ( [id number]) Indication:Hypertension, benign Start:30-Aug-2017 Instruction Type:Patient Education How to access health informa tion online Indication:Impaired fasting glucose Start:30-Aug-2017 Instruction Type:Patient Education How to access health informa tion online - Detail Indication:Impaired fasting glucose Start:30-Aug-2017 Instruction Type:Patient Education Patient Instructions Indication:Impaired fasting glucose Start:30-Aug-2017 Instruction Type:Provider Instructions for Treatment How to access health informa tion online Indication:Olecranon bursitis Start:10-Sep-2016 Instruction Type:Patient Education How to access health informa tion online - Detail Indication:Olecranon bursitis Start:10-Sep-2016 Instruction Type:Patient Education Patient Instructions Indication:Olecranon bursitis Start:10-Sep-2016 Instruction Type:Provider Instructions for Treatment Patient Instructions Indication:Screening PSA (prostate specific antigen) Start:24-Aug-2016 Instruction Type:Provider Instructions for Treatment How to access health informa tion online Indication:Impaired fasting glucose Start:24-Aug-2016 Instruction Type:Patient Education How to access health informa tion online - Detail Indication:Impaired fasting glucose Start:24-Aug-2016 Instruction Type:Patient Education Patient Instructions Indication:Impaired fasting glucose Start:24-Aug-2016 Instruction Type:Provider Instructions for Treatment Patient Instructions Indication:Cellulitis of elbow Start:07-May-2016 Instruction Type:Provider Instructions for Treatment How to access health informa tion online Indication:Cellulitis of elbow Start:07-May-2016 Instruction Type:Patient Education How to access health informa tion online - Detail Indication:Cellulitis of elbow Start:07-May-2016 Instruction Type:Patient Education Patient Instructions Indication:Abnormal blood chemistry Start:12-Sep-2015 Instruction Type:Provider Instructions for Treatment How to access health informa tion online Indication:Impaired fasting glucose Start:05-Sep-2015 Instruction Type:Patient Education How to access health informa tion online - Detail Indication:Impaired fasting glucose Start:05-Sep-2015 Instruction Type:Patient Education Patient Instructions Indication:Impaired fasting glucose Start:05-Sep-2015 Instruction Type:Provider Instructions for Treatment How to access health informa tion online Indication:Gout Start:26-Aug-2015 Instruction Type:Patient Education How to access health informa tion online - Detail Indication:Gout Start:26-Aug-2015 Instruction Type:Patient Education Patient Instructions Indication:Gout Start:26-Aug-2015 Instruction Type:Provider Instructions for Treatment How to access health informa tion online Indication:Anxiety Start:20-Feb-2015 Instruction Type:Patient Education How to access health informa tion online - Detail Indication:Anxiety Start:20-Feb-2015 Instruction Type:Patient Education Patient Instructions Indication:Anxiety Start:20-Feb-2015 Instruction Type:Provider Instructions for Treatment Patient Instructions Indication:Gout attack Start:06-Feb-2013 Instruction Type:Provider Instructions for Treatment Patient Instructions Indication:Gout, unspecified Start:02-Oct-2012 Instruction Type:Provider Instructions for Treatment Patient Instructions Indication:Gout, unspecified Start:11-Apr-2012 Instruction Type:Provider Instructions for Treatment Name Dates Details How to access health informa tion online Indication:Nonsmoker Start:04-Sep-2018 Instruction Type:Patient Education How to access health informa tion online - Detail Indication:Nonsmoker Start:04-Sep-2018 Instruction Type:Patient Education Patient Instructions Indication:Nonsmoker Start:04-Sep-2018 Instruction Type:Provider Instructions for Treatment How to access health informa tion online Indication:Nonsmoker Start:16-Aug-2018 Instruction Type:Patient Education How to access health informa tion online - Detail Indication:Nonsmoker Start:16-Aug-2018 Instruction Type:Patient Education Patient Instructions Indication:BMI 25.0-25.9,adult Start:16-Aug-2018 Instruction Type:Provider Instructions for Treatment How to access health informa tion online Indication:Nonsmoker Start:24-Feb-2018 Instruction Type:Patient Education How to access health informa tion online - Detail Indication:Nonsmoker Start:24-Feb-2018 Instruction Type:Patient Education Patient Instructions Indication:Nonsmoker Start:24-Feb-2018 Instruction Type:Provider Instructions for Treatment How to access health informa tion online Indication:Nonsmoker Start:17-Feb-2018 Instruction Type:Patient Education How to access health informa tion online - Detail Indication:Nonsmoker Start:17-Feb-2018 Instruction Type:Patient Education Patient Instructions Indication:Nonsmoker Start:17-Feb-2018 Instruction Type:Provider Instructions for Treatment How to access health informa tion online Indication:Impaired fasting glucose Start:30-Nov-2017 Instruction Type:Patient Education How to access health informa tion online - Detail Indication:Impaired fasting glucose Start:30-Nov-2017 Instruction Type:Patient Education Patient Instructions Indication:Impaired fasting glucose Start:30-Nov-2017 Instruction Type:Provider Instructions for Treatment DISCONTINUED - LIPID PANEL ( [id number]) Indication:Hypertension, benign Start:30-Aug-2017 Instruction Type:Patient Education How to access health informa tion online Indication:Impaired fasting glucose Start:30-Aug-2017 Instruction Type:Patient Education How to access health informa tion online - Detail Indication:Impaired fasting glucose Start:30-Aug-2017 Instruction Type:Patient Education Patient Instructions Indication:Impaired fasting glucose Start:30-Aug-2017 Instruction Type:Provider Instructions for Treatment How to access health informa tion online Indication:Olecranon bursitis Start:10-Sep-2016 Instruction Type:Patient Education How to access health informa tion online - Detail Indication:Olecranon bursitis Start:10-Sep-2016 Instruction Type:Patient Education Patient Instructions Indication:Olecranon bursitis Start:10-Sep-2016 Instruction Type:Provider Instructions for Treatment Patient Instructions Indication:Screening PSA (prostate specific antigen) Start:24-Aug-2016 Instruction Type:Provider Instructions for Treatment How to access health informa tion online Indication:Impaired fasting glucose Start:24-Aug-2016 Instruction Type:Patient Education How to access health informa tion online - Detail Indication:Impaired fasting glucose Start:24-Aug-2016 Instruction Type:Patient Education Patient Instructions Indication:Impaired fasting glucose Start:24-Aug-2016 Instruction Type:Provider Instructions for Treatment Patient Instructions Indication:Cellulitis of elbow Start:07-May-2016 Instruction Type:Provider Instructions for Treatment How to access health informa tion online Indication:Cellulitis of elbow Start:07-May-2016 Instruction Type:Patient Education How to access health informa tion online - Detail Indication:Cellulitis of elbow Start:07-May-2016 Instruction Type:Patient Education Patient Instructions Indication:Abnormal blood chemistry Start:12-Sep-2015 Instruction Type:Provider Instructions for Treatment How to access health informa tion online Indication:Impaired fasting glucose Start:05-Sep-2015 Instruction Type:Patient Education How to access health informa tion online - Detail Indication:Impaired fasting glucose Start:05-Sep-2015 Instruction Type:Patient Education Patient Instructions Indication:Impaired fasting glucose Start:05-Sep-2015 Instruction Type:Provider Instructions for Treatment How to access health informa tion online Indication:Gout Start:26-Aug-2015 Instruction Type:Patient Education How to access health informa tion online - Detail Indication:Gout Start:26-Aug-2015 Instruction Type:Patient Education Patient Instructions Indication:Gout Start:26-Aug-2015 Instruction Type:Provider Instructions for Treatment How to access health informa tion online Indication:Anxiety Start:20-Feb-2015 Instruction Type:Patient Education How to access health informa tion online - Detail Indication:Anxiety Start:20-Feb-2015 Instruction Type:Patient Education Patient Instructions Indication:Anxiety Start:20-Feb-2015 Instruction Type:Provider Instructions for Treatment Patient Instructions Indication:Gout attack Start:06-Feb-2013 Instruction Type:Provider Instructions for Treatment Patient Instructions Indication:Gout, unspecified Start:02-Oct-2012 Instruction Type:Provider Instructions for Treatment Patient Instructions Indication:Gout, unspecified Start:11-Apr-2012 Instruction Type:Provider Instructions for Treatment Name Dates Details How to access health informa tion online Indication:Nonsmoker Start:10-Jan-2019 Instruction Type:Patient Education How to access health informa tion online - Detail Indication:Nonsmoker Start:10-Jan-2019 Instruction Type:Patient Education Patient Instructions Indication:Nonsmoker Start:10-Jan-2019 Instruction Type:Provider Instructions for Treatment How to access health informa tion online Indication:Nonsmoker Start:04-Sep-2018 Instruction Type:Patient Education How to access health informa tion online - Detail Indication:Nonsmoker Start:04-Sep-2018 Instruction Type:Patient Education Patient Instructions Indication:Nonsmoker Start:04-Sep-2018 Instruction Type:Provider Instructions for Treatment How to access health informa tion online Indication:Nonsmoker Start:16-Aug-2018 Instruction Type:Patient Education How to access health informa tion online - Detail Indication:Nonsmoker Start:16-Aug-2018 Instruction Type:Patient Education Patient Instructions Indication:BMI 25.0-25.9,adult Start:16-Aug-2018 Instruction Type:Provider Instructions for Treatment How to access health informa tion online Indication:Nonsmoker Start:24-Feb-2018 Instruction Type:Patient Education How to access health informa tion online - Detail Indication:Nonsmoker Start:24-Feb-2018 Instruction Type:Patient Education Patient Instructions Indication:Nonsmoker Start:24-Feb-2018 Instruction Type:Provider Instructions for Treatment How to access health informa tion online Indication:Nonsmoker Start:17-Feb-2018 Instruction Type:Patient Education How to access health informa tion online - Detail Indication:Nonsmoker Start:17-Feb-2018 Instruction Type:Patient Education Patient Instructions Indication:Nonsmoker Start:17-Feb-2018 Instruction Type:Provider Instructions for Treatment How to access health informa tion online Indication:Impaired fasting glucose Start:30-Nov-2017 Instruction Type:Patient Education How to access health informa tion online - Detail Indication:Impaired fasting glucose Start:30-Nov-2017 Instruction Type:Patient Education Patient Instructions Indication:Impaired fasting glucose Start:30-Nov-2017 Instruction Type:Provider Instructions for Treatment DISCONTINUED - LIPID PANEL ( [id number]) Indication:Hypertension, benign Start:30-Aug-2017 Instruction Type:Patient Education How to access health informa tion online Indication:Impaired fasting glucose Start:30-Aug-2017 Instruction Type:Patient Education How to access health informa tion online - Detail Indication:Impaired fasting glucose Start:30-Aug-2017 Instruction Type:Patient Education Patient Instructions Indication:Impaired fasting glucose Start:30-Aug-2017 Instruction Type:Provider Instructions for Treatment How to access health informa tion online Indication:Olecranon bursitis Start:10-Sep-2016 Instruction Type:Patient Education How to access health informa tion online - Detail Indication:Olecranon bursitis Start:10-Sep-2016 Instruction Type:Patient Education Patient Instructions Indication:Olecranon bursitis Start:10-Sep-2016 Instruction Type:Provider Instructions for Treatment Patient Instructions Indication:Screening PSA (prostate specific antigen) Start:24-Aug-2016 Instruction Type:Provider Instructions for Treatment How to access health informa tion online Indication:Impaired fasting glucose Start:24-Aug-2016 Instruction Type:Patient Education How to access health informa tion online - Detail Indication:Impaired fasting glucose Start:24-Aug-2016 Instruction Type:Patient Education Patient Instructions Indication:Impaired fasting glucose Start:24-Aug-2016 Instruction Type:Provider Instructions for Treatment Patient Instructions Indication:Cellulitis of elbow Start:07-May-2016 Instruction Type:Provider Instructions for Treatment How to access health informa tion online Indication:Cellulitis of elbow Start:07-May-2016 Instruction Type:Patient Education How to access health informa tion online - Detail Indication:Cellulitis of elbow Start:07-May-2016 Instruction Type:Patient Education Patient Instructions Indication:Abnormal blood chemistry Start:12-Sep-2015 Instruction Type:Provider Instructions for Treatment How to access health informa tion online Indication:Impaired fasting glucose Start:05-Sep-2015 Instruction Type:Patient Education How to access health informa tion online - Detail Indication:Impaired fasting glucose Start:05-Sep-2015 Instruction Type:Patient Education Patient Instructions Indication:Impaired fasting glucose Start:05-Sep-2015 Instruction Type:Provider Instructions for Treatment How to access health informa tion online Indication:Gout Start:26-Aug-2015 Instruction Type:Patient Education How to access health informa tion online - Detail Indication:Gout Start:26-Aug-2015 Instruction Type:Patient Education Patient Instructions Indication:Gout Start:26-Aug-2015 Instruction Type:Provider Instructions for Treatment How to access health informa tion online Indication:Anxiety Start:20-Feb-2015 Instruction Type:Patient Education How to access health informa tion online - Detail Indication:Anxiety Start:20-Feb-2015 Instruction Type:Patient Education Patient Instructions Indication:Anxiety Start:20-Feb-2015 Instruction Type:Provider Instructions for Treatment Patient Instructions Indication:Gout attack Start:06-Feb-2013 Instruction Type:Provider Instructions for Treatment Patient Instructions Indication:Gout, unspecified Start:02-Oct-2012 Instruction Type:Provider Instructions for Treatment Patient Instructions Indication:Gout, unspecified Start:11-Apr-2012 Instruction Type:Provider Instructions for Treatment Name Dates Details How to access health informa tion online Indication:Nonsmoker Start:10-Jan-2019 Instruction Type:Patient Education How to access health informa tion online - Detail Indication:Nonsmoker Start:10-Jan-2019 Instruction Type:Patient Education Patient Instructions Indication:Nonsmoker Start:10-Jan-2019 Instruction Type:Provider Instructions for Treatment How to access health informa tion online Indication:Nonsmoker Start:04-Sep-2018 Instruction Type:Patient Education How to access health informa tion online - Detail Indication:Nonsmoker Start:04-Sep-2018 Instruction Type:Patient Education Patient Instructions Indication:Nonsmoker Start:04-Sep-2018 Instruction Type:Provider Instructions for Treatment How to access health informa tion online Indication:Nonsmoker Start:16-Aug-2018 Instruction Type:Patient Education How to access health informa tion online - Detail Indication:Nonsmoker Start:16-Aug-2018 Instruction Type:Patient Education Patient Instructions Indication:BMI 25.0-25.9,adult Start:16-Aug-2018 Instruction Type:Provider Instructions for Treatment How to access health informa tion online Indication:Nonsmoker Start:24-Feb-2018 Instruction Type:Patient Education How to access health informa tion online - Detail Indication:Nonsmoker Start:24-Feb-2018 Instruction Type:Patient Education Patient Instructions Indication:Nonsmoker Start:24-Feb-2018 Instruction Type:Provider Instructions for Treatment How to access health informa tion online Indication:Nonsmoker Start:17-Feb-2018 Instruction Type:Patient Education How to access health informa tion online - Detail Indication:Nonsmoker Start:17-Feb-2018 Instruction Type:Patient Education Patient Instructions Indication:Nonsmoker Start:17-Feb-2018 Instruction Type:Provider Instructions for Treatment How to access health informa tion online Indication:Impaired fasting glucose Start:30-Nov-2017 Instruction Type:Patient Education How to access health informa tion online - Detail Indication:Impaired fasting glucose Start:30-Nov-2017 Instruction Type:Patient Education Patient Instructions Indication:Impaired fasting glucose Start:30-Nov-2017 Instruction Type:Provider Instructions for Treatment DISCONTINUED - LIPID PANEL ( [id number]) Indication:Hypertension, benign Start:30-Aug-2017 Instruction Type:Patient Education How to access health informa tion online Indication:Impaired fasting glucose Start:30-Aug-2017 Instruction Type:Patient Education How to access health informa tion online - Detail Indication:Impaired fasting glucose Start:30-Aug-2017 Instruction Type:Patient Education Patient Instructions Indication:Impaired fasting glucose Start:30-Aug-2017 Instruction Type:Provider Instructions for Treatment How to access health informa tion online Indication:Olecranon bursitis Start:10-Sep-2016 Instruction Type:Patient Education How to access health informa tion online - Detail Indication:Olecranon bursitis Start:10-Sep-2016 Instruction Type:Patient Education Patient Instructions Indication:Olecranon bursitis Start:10-Sep-2016 Instruction Type:Provider Instructions for Treatment Patient Instructions Indication:Screening PSA (prostate specific antigen) Start:24-Aug-2016 Instruction Type:Provider Instructions for Treatment How to access health informa tion online Indication:Impaired fasting glucose Start:24-Aug-2016 Instruction Type:Patient Education How to access health informa tion online - Detail Indication:Impaired fasting glucose Start:24-Aug-2016 Instruction Type:Patient Education Patient Instructions Indication:Impaired fasting glucose Start:24-Aug-2016 Instruction Type:Provider Instructions for Treatment Patient Instructions Indication:Cellulitis of elbow Start:07-May-2016 Instruction Type:Provider Instructions for Treatment How to access health informa tion online Indication:Cellulitis of elbow Start:07-May-2016 Instruction Type:Patient Education How to access health informa tion online - Detail Indication:Cellulitis of elbow Start:07-May-2016 Instruction Type:Patient Education Patient Instructions Indication:Abnormal blood chemistry Start:12-Sep-2015 Instruction Type:Provider Instructions for Treatment How to access health informa tion online Indication:Impaired fasting glucose Start:05-Sep-2015 Instruction Type:Patient Education How to access health informa tion online - Detail Indication:Impaired fasting glucose Start:05-Sep-2015 Instruction Type:Patient Education Patient Instructions Indication:Impaired fasting glucose Start:05-Sep-2015 Instruction Type:Provider Instructions for Treatment How to access health informa tion online Indication:Gout Start:26-Aug-2015 Instruction Type:Patient Education How to access health informa tion online - Detail Indication:Gout Start:26-Aug-2015 Instruction Type:Patient Education Patient Instructions Indication:Gout Start:26-Aug-2015 Instruction Type:Provider Instructions for Treatment How to access health informa tion online Indication:Anxiety Start:20-Feb-2015 Instruction Type:Patient Education How to access health informa tion online - Detail Indication:Anxiety Start:20-Feb-2015 Instruction Type:Patient Education Patient Instructions Indication:Anxiety Start:20-Feb-2015 Instruction Type:Provider Instructions for Treatment Patient Instructions Indication:Gout attack Start:06-Feb-2013 Instruction Type:Provider Instructions for Treatment Patient Instructions Indication:Gout, unspecified Start:02-Oct-2012 Instruction Type:Provider Instructions for Treatment Patient Instructions Indication:Gout, unspecified Start:11-Apr-2012 Instruction Type:Provider Instructions for Treatment Name Dates Details How to access health informa tion online Indication:Nonsmoker Start:10-Jan-2019 Instruction Type:Patient Education How to access health informa tion online - Detail Indication:Nonsmoker Start:10-Jan-2019 Instruction Type:Patient Education Patient Instructions Indication:Nonsmoker Start:10-Jan-2019 Instruction Type:Provider Instructions for Treatment How to access health informa tion online Indication:Nonsmoker Start:04-Sep-2018 Instruction Type:Patient Education How to access health informa tion online - Detail Indication:Nonsmoker Start:04-Sep-2018 Instruction Type:Patient Education Patient Instructions Indication:Nonsmoker Start:04-Sep-2018 Instruction Type:Provider Instructions for Treatment How to access health informa tion online Indication:Nonsmoker Start:16-Aug-2018 Instruction Type:Patient Education How to access health informa tion online - Detail Indication:Nonsmoker Start:16-Aug-2018 Instruction Type:Patient Education Patient Instructions Indication:BMI 25.0-25.9,adult Start:16-Aug-2018 Instruction Type:Provider Instructions for Treatment How to access health informa tion online Indication:Nonsmoker Start:24-Feb-2018 Instruction Type:Patient Education How to access health informa tion online - Detail Indication:Nonsmoker Start:24-Feb-2018 Instruction Type:Patient Education Patient Instructions Indication:Nonsmoker Start:24-Feb-2018 Instruction Type:Provider Instructions for Treatment How to access health informa tion online Indication:Nonsmoker Start:17-Feb-2018 Instruction Type:Patient Education How to access health informa tion online - Detail Indication:Nonsmoker Start:17-Feb-2018 Instruction Type:Patient Education Patient Instructions Indication:Nonsmoker Start:17-Feb-2018 Instruction Type:Provider Instructions for Treatment How to access health informa tion online Indication:Impaired fasting glucose Start:30-Nov-2017 Instruction Type:Patient Education How to access health informa tion online - Detail Indication:Impaired fasting glucose Start:30-Nov-2017 Instruction Type:Patient Education Patient Instructions Indication:Impaired fasting glucose Start:30-Nov-2017 Instruction Type:Provider Instructions for Treatment DISCONTINUED - LIPID PANEL ( [id number]) Indication:Hypertension, benign Start:30-Aug-2017 Instruction Type:Patient Education How to access health informa tion online Indication:Impaired fasting glucose Start:30-Aug-2017 Instruction Type:Patient Education How to access health informa tion online - Detail Indication:Impaired fasting glucose Start:30-Aug-2017 Instruction Type:Patient Education Patient Instructions Indication:Impaired fasting glucose Start:30-Aug-2017 Instruction Type:Provider Instructions for Treatment How to access health informa tion online Indication:Olecranon bursitis Start:10-Sep-2016 Instruction Type:Patient Education How to access health informa tion online - Detail Indication:Olecranon bursitis Start:10-Sep-2016 Instruction Type:Patient Education Patient Instructions Indication:Olecranon bursitis Start:10-Sep-2016 Instruction Type:Provider Instructions for Treatment Patient Instructions Indication:Screening PSA (prostate specific antigen) Start:24-Aug-2016 Instruction Type:Provider Instructions for Treatment How to access health informa tion online Indication:Impaired fasting glucose Start:24-Aug-2016 Instruction Type:Patient Education How to access health informa tion online - Detail Indication:Impaired fasting glucose Start:24-Aug-2016 Instruction Type:Patient Education Patient Instructions Indication:Impaired fasting glucose Start:24-Aug-2016 Instruction Type:Provider Instructions for Treatment Patient Instructions Indication:Cellulitis of elbow Start:07-May-2016 Instruction Type:Provider Instructions for Treatment How to access health informa tion online Indication:Cellulitis of elbow Start:07-May-2016 Instruction Type:Patient Education How to access health informa tion online - Detail Indication:Cellulitis of elbow Start:07-May-2016 Instruction Type:Patient Education Patient Instructions Indication:Abnormal blood chemistry Start:12-Sep-2015 Instruction Type:Provider Instructions for Treatment How to access health informa tion online Indication:Impaired fasting glucose Start:05-Sep-2015 Instruction Type:Patient Education How to access health informa tion online - Detail Indication:Impaired fasting glucose Start:05-Sep-2015 Instruction Type:Patient Education Patient Instructions Indication:Impaired fasting glucose Start:05-Sep-2015 Instruction Type:Provider Instructions for Treatment How to access health informa tion online Indication:Gout Start:26-Aug-2015 Instruction Type:Patient Education How to access health informa tion online - Detail Indication:Gout Start:26-Aug-2015 Instruction Type:Patient Education Patient Instructions Indication:Gout Start:26-Aug-2015 Instruction Type:Provider Instructions for Treatment How to access health informa tion online Indication:Anxiety Start:20-Feb-2015 Instruction Type:Patient Education How to access health informa tion online - Detail Indication:Anxiety Start:20-Feb-2015 Instruction Type:Patient Education Patient Instructions Indication:Anxiety Start:20-Feb-2015 Instruction Type:Provider Instructions for Treatment Patient Instructions Indication:Gout attack Start:06-Feb-2013 Instruction Type:Provider Instructions for Treatment Patient Instructions Indication:Gout, unspecified Start:02-Oct-2012 Instruction Type:Provider Instructions for Treatment Patient Instructions Indication:Gout, unspecified Start:11-Apr-2012 Instruction Type:Provider Instructions for Treatment Name Dates Details How to access health informa tion online Indication:Nonsmoker Start:24-Jan-2019 Instruction Type:Patient Education How to access health informa tion online - Detail Indication:Nonsmoker Start:24-Jan-2019 Instruction Type:Patient Education Patient Instructions Indication:Nonsmoker Start:24-Jan-2019 Instruction Type:Provider Instructions for Treatment How to access health informa tion online Indication:Nonsmoker Start:10-Jan-2019 Instruction Type:Patient Education How to access health informa tion online - Detail Indication:Nonsmoker Start:10-Jan-2019 Instruction Type:Patient Education Patient Instructions Indication:Nonsmoker Start:10-Jan-2019 Instruction Type:Provider Instructions for Treatment How to access health informa tion online Indication:Nonsmoker Start:04-Sep-2018 Instruction Type:Patient Education How to access health informa tion online - Detail Indication:Nonsmoker Start:04-Sep-2018 Instruction Type:Patient Education Patient Instructions Indication:Nonsmoker Start:04-Sep-2018 Instruction Type:Provider Instructions for Treatment How to access health informa tion online Indication:Nonsmoker Start:16-Aug-2018 Instruction Type:Patient Education How to access health informa tion online - Detail Indication:Nonsmoker Start:16-Aug-2018 Instruction Type:Patient Education Patient Instructions Indication:BMI 25.0-25.9,adult Start:16-Aug-2018 Instruction Type:Provider Instructions for Treatment How to access health informa tion online Indication:Nonsmoker Start:24-Feb-2018 Instruction Type:Patient Education How to access health informa tion online - Detail Indication:Nonsmoker Start:24-Feb-2018 Instruction Type:Patient Education Patient Instructions Indication:Nonsmoker Start:24-Feb-2018 Instruction Type:Provider Instructions for Treatment How to access health informa tion online Indication:Nonsmoker Start:17-Feb-2018 Instruction Type:Patient Education How to access health informa tion online - Detail Indication:Nonsmoker Start:17-Feb-2018 Instruction Type:Patient Education Patient Instructions Indication:Nonsmoker Start:17-Feb-2018 Instruction Type:Provider Instructions for Treatment How to access health informa tion online Indication:Impaired fasting glucose Start:30-Nov-2017 Instruction Type:Patient Education How to access health informa tion online - Detail Indication:Impaired fasting glucose Start:30-Nov-2017 Instruction Type:Patient Education Patient Instructions Indication:Impaired fasting glucose Start:30-Nov-2017 Instruction Type:Provider Instructions for Treatment DISCONTINUED - LIPID PANEL ( [id number]) Indication:Hypertension, benign Start:30-Aug-2017 Instruction Type:Patient Education How to access health informa tion online Indication:Impaired fasting glucose Start:30-Aug-2017 Instruction Type:Patient Education How to access health informa tion online - Detail Indication:Impaired fasting glucose Start:30-Aug-2017 Instruction Type:Patient Education Patient Instructions Indication:Impaired fasting glucose Start:30-Aug-2017 Instruction Type:Provider Instructions for Treatment How to access health informa tion online Indication:Olecranon bursitis Start:10-Sep-2016 Instruction Type:Patient Education How to access health informa tion online - Detail Indication:Olecranon bursitis Start:10-Sep-2016 Instruction Type:Patient Education Patient Instructions Indication:Olecranon bursitis Start:10-Sep-2016 Instruction Type:Provider Instructions for Treatment Patient Instructions Indication:Screening PSA (prostate specific antigen) Start:24-Aug-2016 Instruction Type:Provider Instructions for Treatment How to access health informa tion online Indication:Impaired fasting glucose Start:24-Aug-2016 Instruction Type:Patient Education How to access health informa tion online - Detail Indication:Impaired fasting glucose Start:24-Aug-2016 Instruction Type:Patient Education Patient Instructions Indication:Impaired fasting glucose Start:24-Aug-2016 Instruction Type:Provider Instructions for Treatment Patient Instructions Indication:Cellulitis of elbow Start:07-May-2016 Instruction Type:Provider Instructions for Treatment How to access health informa tion online Indication:Cellulitis of elbow Start:07-May-2016 Instruction Type:Patient Education How to access health informa tion online - Detail Indication:Cellulitis of elbow Start:07-May-2016 Instruction Type:Patient Education Patient Instructions Indication:Abnormal blood chemistry Start:12-Sep-2015 Instruction Type:Provider Instructions for Treatment How to access health informa tion online Indication:Impaired fasting glucose Start:05-Sep-2015 Instruction Type:Patient Education How to access health informa tion online - Detail Indication:Impaired fasting glucose Start:05-Sep-2015 Instruction Type:Patient Education Patient Instructions Indication:Impaired fasting glucose Start:05-Sep-2015 Instruction Type:Provider Instructions for Treatment How to access health informa tion online Indication:Gout Start:26-Aug-2015 Instruction Type:Patient Education How to access health informa tion online - Detail Indication:Gout Start:26-Aug-2015 Instruction Type:Patient Education Patient Instructions Indication:Gout Start:26-Aug-2015 Instruction Type:Provider Instructions for Treatment How to access health informa tion online Indication:Anxiety Start:20-Feb-2015 Instruction Type:Patient Education How to access health informa tion online - Detail Indication:Anxiety Start:20-Feb-2015 Instruction Type:Patient Education Patient Instructions Indication:Anxiety Start:20-Feb-2015 Instruction Type:Provider Instructions for Treatment Patient Instructions Indication:Gout attack Start:06-Feb-2013 Instruction Type:Provider Instructions for Treatment Patient Instructions Indication:Gout, unspecified Start:02-Oct-2012 Instruction Type:Provider Instructions for Treatment Patient Instructions Indication:Gout, unspecified Start:11-Apr-2012 Instruction Type:Provider Instructions for Treatment Name Dates Details How to access health informa tion online Indication:Nonsmoker Start:24-Jan-2019 Instruction Type:Patient Education How to access health informa tion online - Detail Indication:Nonsmoker Start:24-Jan-2019 Instruction Type:Patient Education Patient Instructions Indication:Nonsmoker Start:24-Jan-2019 Instruction Type:Provider Instructions for Treatment How to access health informa tion online Indication:Nonsmoker Start:10-Jan-2019 Instruction Type:Patient Education How to access health informa tion online - Detail Indication:Nonsmoker Start:10-Jan-2019 Instruction Type:Patient Education Patient Instructions Indication:Nonsmoker Start:10-Jan-2019 Instruction Type:Provider Instructions for Treatment How to access health informa tion online Indication:Nonsmoker Start:04-Sep-2018 Instruction Type:Patient Education How to access health informa tion online - Detail Indication:Nonsmoker Start:04-Sep-2018 Instruction Type:Patient Education Patient Instructions Indication:Nonsmoker Start:04-Sep-2018 Instruction Type:Provider Instructions for Treatment How to access health informa tion online Indication:Nonsmoker Start:16-Aug-2018 Instruction Type:Patient Education How to access health informa tion online - Detail Indication:Nonsmoker Start:16-Aug-2018 Instruction Type:Patient Education Patient Instructions Indication:BMI 25.0-25.9,adult Start:16-Aug-2018 Instruction Type:Provider Instructions for Treatment How to access health informa tion online Indication:Nonsmoker Start:24-Feb-2018 Instruction Type:Patient Education How to access health informa tion online - Detail Indication:Nonsmoker Start:24-Feb-2018 Instruction Type:Patient Education Patient Instructions Indication:Nonsmoker Start:24-Feb-2018 Instruction Type:Provider Instructions for Treatment How to access health informa tion online Indication:Nonsmoker Start:17-Feb-2018 Instruction Type:Patient Education How to access health informa tion online - Detail Indication:Nonsmoker Start:17-Feb-2018 Instruction Type:Patient Education Patient Instructions Indication:Nonsmoker Start:17-Feb-2018 Instruction Type:Provider Instructions for Treatment How to access health informa tion online Indication:Impaired fasting glucose Start:30-Nov-2017 Instruction Type:Patient Education How to access health informa tion online - Detail Indication:Impaired fasting glucose Start:30-Nov-2017 Instruction Type:Patient Education Patient Instructions Indication:Impaired fasting glucose Start:30-Nov-2017 Instruction Type:Provider Instructions for Treatment DISCONTINUED - LIPID PANEL ( [id number]) Indication:Hypertension, benign Start:30-Aug-2017 Instruction Type:Patient Education How to access health informa tion online Indication:Impaired fasting glucose Start:30-Aug-2017 Instruction Type:Patient Education How to access health informa tion online - Detail Indication:Impaired fasting glucose Start:30-Aug-2017 Instruction Type:Patient Education Patient Instructions Indication:Impaired fasting glucose Start:30-Aug-2017 Instruction Type:Provider Instructions for Treatment How to access health informa tion online Indication:Olecranon bursitis Start:10-Sep-2016 Instruction Type:Patient Education How to access health informa tion online - Detail Indication:Olecranon bursitis Start:10-Sep-2016 Instruction Type:Patient Education Patient Instructions Indication:Olecranon bursitis Start:10-Sep-2016 Instruction Type:Provider Instructions for Treatment Patient Instructions Indication:Screening PSA (prostate specific antigen) Start:24-Aug-2016 Instruction Type:Provider Instructions for Treatment How to access health informa tion online Indication:Impaired fasting glucose Start:24-Aug-2016 Instruction Type:Patient Education How to access health informa tion online - Detail Indication:Impaired fasting glucose Start:24-Aug-2016 Instruction Type:Patient Education Patient Instructions Indication:Impaired fasting glucose Start:24-Aug-2016 Instruction Type:Provider Instructions for Treatment Patient Instructions Indication:Cellulitis of elbow Start:07-May-2016 Instruction Type:Provider Instructions for Treatment How to access health informa tion online Indication:Cellulitis of elbow Start:07-May-2016 Instruction Type:Patient Education How to access health informa tion online - Detail Indication:Cellulitis of elbow Start:07-May-2016 Instruction Type:Patient Education Patient Instructions Indication:Abnormal blood chemistry Start:12-Sep-2015 Instruction Type:Provider Instructions for Treatment How to access health informa tion online Indication:Impaired fasting glucose Start:05-Sep-2015 Instruction Type:Patient Education How to access health informa tion online - Detail Indication:Impaired fasting glucose Start:05-Sep-2015 Instruction Type:Patient Education Patient Instructions Indication:Impaired fasting glucose Start:05-Sep-2015 Instruction Type:Provider Instructions for Treatment How to access health informa tion online Indication:Gout Start:26-Aug-2015 Instruction Type:Patient Education How to access health informa tion online - Detail Indication:Gout Start:26-Aug-2015 Instruction Type:Patient Education Patient Instructions Indication:Gout Start:26-Aug-2015 Instruction Type:Provider Instructions for Treatment How to access health informa tion online Indication:Anxiety Start:20-Feb-2015 Instruction Type:Patient Education How to access health informa tion online - Detail Indication:Anxiety Start:20-Feb-2015 Instruction Type:Patient Education Patient Instructions Indication:Anxiety Start:20-Feb-2015 Instruction Type:Provider Instructions for Treatment Patient Instructions Indication:Gout attack Start:06-Feb-2013 Instruction Type:Provider Instructions for Treatment Patient Instructions Indication:Gout, unspecified Start:02-Oct-2012 Instruction Type:Provider Instructions for Treatment Patient Instructions Indication:Gout, unspecified Start:11-Apr-2012 Instruction Type:Provider Instructions for Treatment Name Dates Details How to access health informa tion online Indication:Nonsmoker Start:24-Jan-2019 Instruction Type:Patient Education How to access health informa tion online - Detail Indication:Nonsmoker Start:24-Jan-2019 Instruction Type:Patient Education Patient Instructions Indication:Nonsmoker Start:24-Jan-2019 Instruction Type:Provider Instructions for Treatment How to access health informa tion online Indication:Nonsmoker Start:10-Jan-2019 Instruction Type:Patient Education How to access health informa tion online - Detail Indication:Nonsmoker Start:10-Jan-2019 Instruction Type:Patient Education Patient Instructions Indication:Nonsmoker Start:10-Jan-2019 Instruction Type:Provider Instructions for Treatment How to access health informa tion online Indication:Nonsmoker Start:04-Sep-2018 Instruction Type:Patient Education How to access health informa tion online - Detail Indication:Nonsmoker Start:04-Sep-2018 Instruction Type:Patient Education Patient Instructions Indication:Nonsmoker Start:04-Sep-2018 Instruction Type:Provider Instructions for Treatment How to access health informa tion online Indication:Nonsmoker Start:16-Aug-2018 Instruction Type:Patient Education How to access health informa tion online - Detail Indication:Nonsmoker Start:16-Aug-2018 Instruction Type:Patient Education Patient Instructions Indication:BMI 25.0-25.9,adult Start:16-Aug-2018 Instruction Type:Provider Instructions for Treatment How to access health informa tion online Indication:Nonsmoker Start:24-Feb-2018 Instruction Type:Patient Education How to access health informa tion online - Detail Indication:Nonsmoker Start:24-Feb-2018 Instruction Type:Patient Education Patient Instructions Indication:Nonsmoker Start:24-Feb-2018 Instruction Type:Provider Instructions for Treatment How to access health informa tion online Indication:Nonsmoker Start:17-Feb-2018 Instruction Type:Patient Education How to access health informa tion online - Detail Indication:Nonsmoker Start:17-Feb-2018 Instruction Type:Patient Education Patient Instructions Indication:Nonsmoker Start:17-Feb-2018 Instruction Type:Provider Instructions for Treatment How to access health informa tion online Indication:Impaired fasting glucose Start:30-Nov-2017 Instruction Type:Patient Education How to access health informa tion online - Detail Indication:Impaired fasting glucose Start:30-Nov-2017 Instruction Type:Patient Education Patient Instructions Indication:Impaired fasting glucose Start:30-Nov-2017 Instruction Type:Provider Instructions for Treatment DISCONTINUED - LIPID PANEL ( [id number]) Indication:Hypertension, benign Start:30-Aug-2017 Instruction Type:Patient Education How to access health informa tion online Indication:Impaired fasting glucose Start:30-Aug-2017 Instruction Type:Patient Education How to access health informa tion online - Detail Indication:Impaired fasting glucose Start:30-Aug-2017 Instruction Type:Patient Education Patient Instructions Indication:Impaired fasting glucose Start:30-Aug-2017 Instruction Type:Provider Instructions for Treatment How to access health informa tion online Indication:Olecranon bursitis Start:10-Sep-2016 Instruction Type:Patient Education How to access health informa tion online - Detail Indication:Olecranon bursitis Start:10-Sep-2016 Instruction Type:Patient Education Patient Instructions Indication:Olecranon bursitis Start:10-Sep-2016 Instruction Type:Provider Instructions for Treatment Patient Instructions Indication:Screening PSA (prostate specific antigen) Start:24-Aug-2016 Instruction Type:Provider Instructions for Treatment How to access health informa tion online Indication:Impaired fasting glucose Start:24-Aug-2016 Instruction Type:Patient Education How to access health informa tion online - Detail Indication:Impaired fasting glucose Start:24-Aug-2016 Instruction Type:Patient Education Patient Instructions Indication:Impaired fasting glucose Start:24-Aug-2016 Instruction Type:Provider Instructions for Treatment Patient Instructions Indication:Cellulitis of elbow Start:07-May-2016 Instruction Type:Provider Instructions for Treatment How to access health informa tion online Indication:Cellulitis of elbow Start:07-May-2016 Instruction Type:Patient Education How to access health informa tion online - Detail Indication:Cellulitis of elbow Start:07-May-2016 Instruction Type:Patient Education Patient Instructions Indication:Abnormal blood chemistry Start:12-Sep-2015 Instruction Type:Provider Instructions for Treatment How to access health informa tion online Indication:Impaired fasting glucose Start:05-Sep-2015 Instruction Type:Patient Education How to access health informa tion online - Detail Indication:Impaired fasting glucose Start:05-Sep-2015 Instruction Type:Patient Education Patient Instructions Indication:Impaired fasting glucose Start:05-Sep-2015 Instruction Type:Provider Instructions for Treatment How to access health informa tion online Indication:Gout Start:26-Aug-2015 Instruction Type:Patient Education How to access health informa tion online - Detail Indication:Gout Start:26-Aug-2015 Instruction Type:Patient Education Patient Instructions Indication:Gout Start:26-Aug-2015 Instruction Type:Provider Instructions for Treatment How to access health informa tion online Indication:Anxiety Start:20-Feb-2015 Instruction Type:Patient Education How to access health informa tion online - Detail Indication:Anxiety Start:20-Feb-2015 Instruction Type:Patient Education Patient Instructions Indication:Anxiety Start:20-Feb-2015 Instruction Type:Provider Instructions for Treatment Patient Instructions Indication:Gout attack Start:06-Feb-2013 Instruction Type:Provider Instructions for Treatment Patient Instructions Indication:Gout, unspecified Start:02-Oct-2012 Instruction Type:Provider Instructions for Treatment Patient Instructions Indication:Gout, unspecified Start:11-Apr-2012 Instruction Type:Provider Instructions for Treatment Name Dates Details How to access health informa tion online Indication:Nonsmoker Start:24-Jan-2019 Instruction Type:Patient Education How to access health informa tion online - Detail Indication:Nonsmoker Start:24-Jan-2019 Instruction Type:Patient Education Patient Instructions Indication:Nonsmoker Start:24-Jan-2019 Instruction Type:Provider Instructions for Treatment How to access health informa tion online Indication:Nonsmoker Start:10-Jan-2019 Instruction Type:Patient Education How to access health informa tion online - Detail Indication:Nonsmoker Start:10-Jan-2019 Instruction Type:Patient Education Patient Instructions Indication:Nonsmoker Start:10-Jan-2019 Instruction Type:Provider Instructions for Treatment How to access health informa tion online Indication:Nonsmoker Start:04-Sep-2018 Instruction Type:Patient Education How to access health informa tion online - Detail Indication:Nonsmoker Start:04-Sep-2018 Instruction Type:Patient Education Patient Instructions Indication:Nonsmoker Start:04-Sep-2018 Instruction Type:Provider Instructions for Treatment How to access health informa tion online Indication:Nonsmoker Start:16-Aug-2018 Instruction Type:Patient Education How to access health informa tion online - Detail Indication:Nonsmoker Start:16-Aug-2018 Instruction Type:Patient Education Patient Instructions Indication:BMI 25.0-25.9,adult Start:16-Aug-2018 Instruction Type:Provider Instructions for Treatment How to access health informa tion online Indication:Nonsmoker Start:24-Feb-2018 Instruction Type:Patient Education How to access health informa tion online - Detail Indication:Nonsmoker Start:24-Feb-2018 Instruction Type:Patient Education Patient Instructions Indication:Nonsmoker Start:24-Feb-2018 Instruction Type:Provider Instructions for Treatment How to access health informa tion online Indication:Nonsmoker Start:17-Feb-2018 Instruction Type:Patient Education How to access health informa tion online - Detail Indication:Nonsmoker Start:17-Feb-2018 Instruction Type:Patient Education Patient Instructions Indication:Nonsmoker Start:17-Feb-2018 Instruction Type:Provider Instructions for Treatment How to access health informa tion online Indication:Impaired fasting glucose Start:30-Nov-2017 Instruction Type:Patient Education How to access health informa tion online - Detail Indication:Impaired fasting glucose Start:30-Nov-2017 Instruction Type:Patient Education Patient Instructions Indication:Impaired fasting glucose Start:30-Nov-2017 Instruction Type:Provider Instructions for Treatment DISCONTINUED - LIPID PANEL ( [id number]) Indication:Hypertension, benign Start:30-Aug-2017 Instruction Type:Patient Education How to access health informa tion online Indication:Impaired fasting glucose Start:30-Aug-2017 Instruction Type:Patient Education How to access health informa tion online - Detail Indication:Impaired fasting glucose Start:30-Aug-2017 Instruction Type:Patient Education Patient Instructions Indication:Impaired fasting glucose Start:30-Aug-2017 Instruction Type:Provider Instructions for Treatment How to access health informa tion online Indication:Olecranon bursitis Start:10-Sep-2016 Instruction Type:Patient Education How to access health informa tion online - Detail Indication:Olecranon bursitis Start:10-Sep-2016 Instruction Type:Patient Education Patient Instructions Indication:Olecranon bursitis Start:10-Sep-2016 Instruction Type:Provider Instructions for Treatment Patient Instructions Indication:Screening PSA (prostate specific antigen) Start:24-Aug-2016 Instruction Type:Provider Instructions for Treatment How to access health informa tion online Indication:Impaired fasting glucose Start:24-Aug-2016 Instruction Type:Patient Education How to access health informa tion online - Detail Indication:Impaired fasting glucose Start:24-Aug-2016 Instruction Type:Patient Education Patient Instructions Indication:Impaired fasting glucose Start:24-Aug-2016 Instruction Type:Provider Instructions for Treatment Patient Instructions Indication:Cellulitis of elbow Start:07-May-2016 Instruction Type:Provider Instructions for Treatment How to access health informa tion online Indication:Cellulitis of elbow Start:07-May-2016 Instruction Type:Patient Education How to access health informa tion online - Detail Indication:Cellulitis of elbow Start:07-May-2016 Instruction Type:Patient Education Patient Instructions Indication:Abnormal blood chemistry Start:12-Sep-2015 Instruction Type:Provider Instructions for Treatment How to access health informa tion online Indication:Impaired fasting glucose Start:05-Sep-2015 Instruction Type:Patient Education How to access health informa tion online - Detail Indication:Impaired fasting glucose Start:05-Sep-2015 Instruction Type:Patient Education Patient Instructions Indication:Impaired fasting glucose Start:05-Sep-2015 Instruction Type:Provider Instructions for Treatment How to access health informa tion online Indication:Gout Start:26-Aug-2015 Instruction Type:Patient Education How to access health informa tion online - Detail Indication:Gout Start:26-Aug-2015 Instruction Type:Patient Education Patient Instructions Indication:Gout Start:26-Aug-2015 Instruction Type:Provider Instructions for Treatment How to access health informa tion online Indication:Anxiety Start:20-Feb-2015 Instruction Type:Patient Education How to access health informa tion online - Detail Indication:Anxiety Start:20-Feb-2015 Instruction Type:Patient Education Patient Instructions Indication:Anxiety Start:20-Feb-2015 Instruction Type:Provider Instructions for Treatment Patient Instructions Indication:Gout attack Start:06-Feb-2013 Instruction Type:Provider Instructions for Treatment Patient Instructions Indication:Gout, unspecified Start:02-Oct-2012 Instruction Type:Provider Instructions for Treatment Patient Instructions Indication:Gout, unspecified Start:11-Apr-2012 Instruction Type:Provider Instructions for Treatment Name Dates Details How to access health informa tion online Indication:Nonsmoker Start:24-Jan-2019 Instruction Type:Patient Education How to access health informa tion online - Detail Indication:Nonsmoker Start:24-Jan-2019 Instruction Type:Patient Education Patient Instructions Indication:Nonsmoker Start:24-Jan-2019 Instruction Type:Provider Instructions for Treatment How to access health informa tion online Indication:Nonsmoker Start:10-Jan-2019 Instruction Type:Patient Education How to access health informa tion online - Detail Indication:Nonsmoker Start:10-Jan-2019 Instruction Type:Patient Education Patient Instructions Indication:Nonsmoker Start:10-Jan-2019 Instruction Type:Provider Instructions for Treatment How to access health informa tion online Indication:Nonsmoker Start:04-Sep-2018 Instruction Type:Patient Education How to access health informa tion online - Detail Indication:Nonsmoker Start:04-Sep-2018 Instruction Type:Patient Education Patient Instructions Indication:Nonsmoker Start:04-Sep-2018 Instruction Type:Provider Instructions for Treatment How to access health informa tion online Indication:Nonsmoker Start:16-Aug-2018 Instruction Type:Patient Education How to access health informa tion online - Detail Indication:Nonsmoker Start:16-Aug-2018 Instruction Type:Patient Education Patient Instructions Indication:BMI 25.0-25.9,adult Start:16-Aug-2018 Instruction Type:Provider Instructions for Treatment How to access health informa tion online Indication:Nonsmoker Start:24-Feb-2018 Instruction Type:Patient Education How to access health informa tion online - Detail Indication:Nonsmoker Start:24-Feb-2018 Instruction Type:Patient Education Patient Instructions Indication:Nonsmoker Start:24-Feb-2018 Instruction Type:Provider Instructions for Treatment How to access health informa tion online Indication:Nonsmoker Start:17-Feb-2018 Instruction Type:Patient Education How to access health informa tion online - Detail Indication:Nonsmoker Start:17-Feb-2018 Instruction Type:Patient Education Patient Instructions Indication:Nonsmoker Start:17-Feb-2018 Instruction Type:Provider Instructions for Treatment How to access health informa tion online Indication:Impaired fasting glucose Start:30-Nov-2017 Instruction Type:Patient Education How to access health informa tion online - Detail Indication:Impaired fasting glucose Start:30-Nov-2017 Instruction Type:Patient Education Patient Instructions Indication:Impaired fasting glucose Start:30-Nov-2017 Instruction Type:Provider Instructions for Treatment DISCONTINUED - LIPID PANEL ( [id number]) Indication:Hypertension, benign Start:30-Aug-2017 Instruction Type:Patient Education How to access health informa tion online Indication:Impaired fasting glucose Start:30-Aug-2017 Instruction Type:Patient Education How to access health informa tion online - Detail Indication:Impaired fasting glucose Start:30-Aug-2017 Instruction Type:Patient Education Patient Instructions Indication:Impaired fasting glucose Start:30-Aug-2017 Instruction Type:Provider Instructions for Treatment How to access health informa tion online Indication:Olecranon bursitis Start:10-Sep-2016 Instruction Type:Patient Education How to access health informa tion online - Detail Indication:Olecranon bursitis Start:10-Sep-2016 Instruction Type:Patient Education Patient Instructions Indication:Olecranon bursitis Start:10-Sep-2016 Instruction Type:Provider Instructions for Treatment Patient Instructions Indication:Screening PSA (prostate specific antigen) Start:24-Aug-2016 Instruction Type:Provider Instructions for Treatment How to access health informa tion online Indication:Impaired fasting glucose Start:24-Aug-2016 Instruction Type:Patient Education How to access health informa tion online - Detail Indication:Impaired fasting glucose Start:24-Aug-2016 Instruction Type:Patient Education Patient Instructions Indication:Impaired fasting glucose Start:24-Aug-2016 Instruction Type:Provider Instructions for Treatment Patient Instructions Indication:Cellulitis of elbow Start:07-May-2016 Instruction Type:Provider Instructions for Treatment How to access health informa tion online Indication:Cellulitis of elbow Start:07-May-2016 Instruction Type:Patient Education How to access health informa tion online - Detail Indication:Cellulitis of elbow Start:07-May-2016 Instruction Type:Patient Education Patient Instructions Indication:Abnormal blood chemistry Start:12-Sep-2015 Instruction Type:Provider Instructions for Treatment How to access health informa tion online Indication:Impaired fasting glucose Start:05-Sep-2015 Instruction Type:Patient Education How to access health informa tion online - Detail Indication:Impaired fasting glucose Start:05-Sep-2015 Instruction Type:Patient Education Patient Instructions Indication:Impaired fasting glucose Start:05-Sep-2015 Instruction Type:Provider Instructions for Treatment How to access health informa tion online Indication:Gout Start:26-Aug-2015 Instruction Type:Patient Education How to access health informa tion online - Detail Indication:Gout Start:26-Aug-2015 Instruction Type:Patient Education Patient Instructions Indication:Gout Start:26-Aug-2015 Instruction Type:Provider Instructions for Treatment How to access health informa tion online Indication:Anxiety Start:20-Feb-2015 Instruction Type:Patient Education How to access health informa tion online - Detail Indication:Anxiety Start:20-Feb-2015 Instruction Type:Patient Education Patient Instructions Indication:Anxiety Start:20-Feb-2015 Instruction Type:Provider Instructions for Treatment Patient Instructions Indication:Gout attack Start:06-Feb-2013 Instruction Type:Provider Instructions for Treatment Patient Instructions Indication:Gout, unspecified Start:02-Oct-2012 Instruction Type:Provider Instructions for Treatment Patient Instructions Indication:Gout, unspecified Start:11-Apr-2012 Instruction Type:Provider Instructions for Treatment Name Dates Details How to access health informa tion online Indication:Nonsmoker Start:24-Jan-2019 Instruction Type:Patient Education How to access health informa tion online - Detail Indication:Nonsmoker Start:24-Jan-2019 Instruction Type:Patient Education Patient Instructions Indication:Nonsmoker Start:24-Jan-2019 Instruction Type:Provider Instructions for Treatment How to access health informa tion online Indication:Nonsmoker Start:10-Jan-2019 Instruction Type:Patient Education How to access health informa tion online - Detail Indication:Nonsmoker Start:10-Jan-2019 Instruction Type:Patient Education Patient Instructions Indication:Nonsmoker Start:10-Jan-2019 Instruction Type:Provider Instructions for Treatment How to access health informa tion online Indication:Nonsmoker Start:04-Sep-2018 Instruction Type:Patient Education How to access health informa tion online - Detail Indication:Nonsmoker Start:04-Sep-2018 Instruction Type:Patient Education Patient Instructions Indication:Nonsmoker Start:04-Sep-2018 Instruction Type:Provider Instructions for Treatment How to access health informa tion online Indication:Nonsmoker Start:16-Aug-2018 Instruction Type:Patient Education How to access health informa tion online - Detail Indication:Nonsmoker Start:16-Aug-2018 Instruction Type:Patient Education Patient Instructions Indication:BMI 25.0-25.9,adult Start:16-Aug-2018 Instruction Type:Provider Instructions for Treatment How to access health informa tion online Indication:Nonsmoker Start:24-Feb-2018 Instruction Type:Patient Education How to access health informa tion online - Detail Indication:Nonsmoker Start:24-Feb-2018 Instruction Type:Patient Education Patient Instructions Indication:Nonsmoker Start:24-Feb-2018 Instruction Type:Provider Instructions for Treatment How to access health informa tion online Indication:Nonsmoker Start:17-Feb-2018 Instruction Type:Patient Education How to access health informa tion online - Detail Indication:Nonsmoker Start:17-Feb-2018 Instruction Type:Patient Education Patient Instructions Indication:Nonsmoker Start:17-Feb-2018 Instruction Type:Provider Instructions for Treatment How to access health informa tion online Indication:Impaired fasting glucose Start:30-Nov-2017 Instruction Type:Patient Education How to access health informa tion online - Detail Indication:Impaired fasting glucose Start:30-Nov-2017 Instruction Type:Patient Education Patient Instructions Indication:Impaired fasting glucose Start:30-Nov-2017 Instruction Type:Provider Instructions for Treatment DISCONTINUED - LIPID PANEL ( [id number]) Indication:Hypertension, benign Start:30-Aug-2017 Instruction Type:Patient Education How to access health informa tion online Indication:Impaired fasting glucose Start:30-Aug-2017 Instruction Type:Patient Education How to access health informa tion online - Detail Indication:Impaired fasting glucose Start:30-Aug-2017 Instruction Type:Patient Education Patient Instructions Indication:Impaired fasting glucose Start:30-Aug-2017 Instruction Type:Provider Instructions for Treatment How to access health informa tion online Indication:Olecranon bursitis Start:10-Sep-2016 Instruction Type:Patient Education How to access health informa tion online - Detail Indication:Olecranon bursitis Start:10-Sep-2016 Instruction Type:Patient Education Patient Instructions Indication:Olecranon bursitis Start:10-Sep-2016 Instruction Type:Provider Instructions for Treatment Patient Instructions Indication:Screening PSA (prostate specific antigen) Start:24-Aug-2016 Instruction Type:Provider Instructions for Treatment How to access health informa tion online Indication:Impaired fasting glucose Start:24-Aug-2016 Instruction Type:Patient Education How to access health informa tion online - Detail Indication:Impaired fasting glucose Start:24-Aug-2016 Instruction Type:Patient Education Patient Instructions Indication:Impaired fasting glucose Start:24-Aug-2016 Instruction Type:Provider Instructions for Treatment Patient Instructions Indication:Cellulitis of elbow Start:07-May-2016 Instruction Type:Provider Instructions for Treatment How to access health informa tion online Indication:Cellulitis of elbow Start:07-May-2016 Instruction Type:Patient Education How to access health informa tion online - Detail Indication:Cellulitis of elbow Start:07-May-2016 Instruction Type:Patient Education Patient Instructions Indication:Abnormal blood chemistry Start:12-Sep-2015 Instruction Type:Provider Instructions for Treatment How to access health informa tion online Indication:Impaired fasting glucose Start:05-Sep-2015 Instruction Type:Patient Education How to access health informa tion online - Detail Indication:Impaired fasting glucose Start:05-Sep-2015 Instruction Type:Patient Education Patient Instructions Indication:Impaired fasting glucose Start:05-Sep-2015 Instruction Type:Provider Instructions for Treatment How to access health informa tion online Indication:Gout Start:26-Aug-2015 Instruction Type:Patient Education How to access health informa tion online - Detail Indication:Gout Start:26-Aug-2015 Instruction Type:Patient Education Patient Instructions Indication:Gout Start:26-Aug-2015 Instruction Type:Provider Instructions for Treatment How to access health informa tion online Indication:Anxiety Start:20-Feb-2015 Instruction Type:Patient Education How to access health informa tion online - Detail Indication:Anxiety Start:20-Feb-2015 Instruction Type:Patient Education Patient Instructions Indication:Anxiety Start:20-Feb-2015 Instruction Type:Provider Instructions for Treatment Patient Instructions Indication:Gout attack Start:06-Feb-2013 Instruction Type:Provider Instructions for Treatment Patient Instructions Indication:Gout, unspecified Start:02-Oct-2012 Instruction Type:Provider Instructions for Treatment Patient Instructions Indication:Gout, unspecified Start:11-Apr-2012 Instruction Type:Provider Instructions for Treatment Name Dates Details How to access health informa tion online Indication:Nonsmoker Start:23-Feb-2019 Instruction Type:Patient Education How to access health informa tion online - Detail Indication:Nonsmoker Start:23-Feb-2019 Instruction Type:Patient Education Patient Instructions Indication:Nonsmoker Start:23-Feb-2019 Instruction Type:Provider Instructions for Treatment How to access health informa tion online Indication:Nonsmoker Start:14-Feb-2019 Instruction Type:Patient Education How to access health informa tion online - Detail Indication:Nonsmoker Start:14-Feb-2019 Instruction Type:Patient Education Patient Instructions Indication:Nonsmoker Start:14-Feb-2019 Instruction Type:Provider Instructions for Treatment How to access health informa tion online Indication:Nonsmoker Start:24-Jan-2019 Instruction Type:Patient Education How to access health informa tion online - Detail Indication:Nonsmoker Start:24-Jan-2019 Instruction Type:Patient Education Patient Instructions Indication:Nonsmoker Start:24-Jan-2019 Instruction Type:Provider Instructions for Treatment How to access health informa tion online Indication:Nonsmoker Start:10-Jan-2019 Instruction Type:Patient Education How to access health informa tion online - Detail Indication:Nonsmoker Start:10-Jan-2019 Instruction Type:Patient Education Patient Instructions Indication:Nonsmoker Start:10-Jan-2019 Instruction Type:Provider Instructions for Treatment How to access health informa tion online Indication:Nonsmoker Start:04-Sep-2018 Instruction Type:Patient Education How to access health informa tion online - Detail Indication:Nonsmoker Start:04-Sep-2018 Instruction Type:Patient Education Patient Instructions Indication:Nonsmoker Start:04-Sep-2018 Instruction Type:Provider Instructions for Treatment How to access health informa tion online Indication:Nonsmoker Start:16-Aug-2018 Instruction Type:Patient Education How to access health informa tion online - Detail Indication:Nonsmoker Start:16-Aug-2018 Instruction Type:Patient Education Patient Instructions Indication:BMI 25.0-25.9,adult Start:16-Aug-2018 Instruction Type:Provider Instructions for Treatment How to access health informa tion online Indication:Nonsmoker Start:24-Feb-2018 Instruction Type:Patient Education How to access health informa tion online - Detail Indication:Nonsmoker Start:24-Feb-2018 Instruction Type:Patient Education Patient Instructions Indication:Nonsmoker Start:24-Feb-2018 Instruction Type:Provider Instructions for Treatment How to access health informa tion online Indication:Nonsmoker Start:17-Feb-2018 Instruction Type:Patient Education How to access health informa tion online - Detail Indication:Nonsmoker Start:17-Feb-2018 Instruction Type:Patient Education Patient Instructions Indication:Nonsmoker Start:17-Feb-2018 Instruction Type:Provider Instructions for Treatment How to access health informa tion online Indication:Impaired fasting glucose Start:30-Nov-2017 Instruction Type:Patient Education How to access health informa tion online - Detail Indication:Impaired fasting glucose Start:30-Nov-2017 Instruction Type:Patient Education Patient Instructions Indication:Impaired fasting glucose Start:30-Nov-2017 Instruction Type:Provider Instructions for Treatment DISCONTINUED - LIPID PANEL ( [id number]) Indication:Hypertension, benign Start:30-Aug-2017 Instruction Type:Patient Education How to access health informa tion online Indication:Impaired fasting glucose Start:30-Aug-2017 Instruction Type:Patient Education How to access health informa tion online - Detail Indication:Impaired fasting glucose Start:30-Aug-2017 Instruction Type:Patient Education Patient Instructions Indication:Impaired fasting glucose Start:30-Aug-2017 Instruction Type:Provider Instructions for Treatment How to access health informa tion online Indication:Olecranon bursitis Start:10-Sep-2016 Instruction Type:Patient Education How to access health informa tion online - Detail Indication:Olecranon bursitis Start:10-Sep-2016 Instruction Type:Patient Education Patient Instructions Indication:Olecranon bursitis Start:10-Sep-2016 Instruction Type:Provider Instructions for Treatment Patient Instructions Indication:Screening PSA (prostate specific antigen) Start:24-Aug-2016 Instruction Type:Provider Instructions for Treatment How to access health informa tion online Indication:Impaired fasting glucose Start:24-Aug-2016 Instruction Type:Patient Education How to access health informa tion online - Detail Indication:Impaired fasting glucose Start:24-Aug-2016 Instruction Type:Patient Education Patient Instructions Indication:Impaired fasting glucose Start:24-Aug-2016 Instruction Type:Provider Instructions for Treatment Patient Instructions Indication:Cellulitis of elbow Start:07-May-2016 Instruction Type:Provider Instructions for Treatment How to access health informa tion online Indication:Cellulitis of elbow Start:07-May-2016 Instruction Type:Patient Education How to access health informa tion online - Detail Indication:Cellulitis of elbow Start:07-May-2016 Instruction Type:Patient Education Patient Instructions Indication:Abnormal blood chemistry Start:12-Sep-2015 Instruction Type:Provider Instructions for Treatment How to access health informa tion online Indication:Impaired fasting glucose Start:05-Sep-2015 Instruction Type:Patient Education How to access health informa tion online - Detail Indication:Impaired fasting glucose Start:05-Sep-2015 Instruction Type:Patient Education Patient Instructions Indication:Impaired fasting glucose Start:05-Sep-2015 Instruction Type:Provider Instructions for Treatment How to access health informa tion online Indication:Gout Start:26-Aug-2015 Instruction Type:Patient Education How to access health informa tion online - Detail Indication:Gout Start:26-Aug-2015 Instruction Type:Patient Education Patient Instructions Indication:Gout Start:26-Aug-2015 Instruction Type:Provider Instructions for Treatment How to access health informa tion online Indication:Anxiety Start:20-Feb-2015 Instruction Type:Patient Education How to access health informa tion online - Detail Indication:Anxiety Start:20-Feb-2015 Instruction Type:Patient Education Patient Instructions Indication:Anxiety Start:20-Feb-2015 Instruction Type:Provider Instructions for Treatment Patient Instructions Indication:Gout attack Start:06-Feb-2013 Instruction Type:Provider Instructions for Treatment Patient Instructions Indication:Gout, unspecified Start:02-Oct-2012 Instruction Type:Provider Instructions for Treatment Patient Instructions Indication:Gout, unspecified Start:11-Apr-2012 Instruction Type:Provider Instructions for Treatment Name Dates Details How to access health informa tion online Indication:Nonsmoker Start:23-Feb-2019 Instruction Type:Patient Education How to access health informa tion online - Detail Indication:Nonsmoker Start:23-Feb-2019 Instruction Type:Patient Education Patient Instructions Indication:Nonsmoker Start:23-Feb-2019 Instruction Type:Provider Instructions for Treatment How to access health informa tion online Indication:Nonsmoker Start:14-Feb-2019 Instruction Type:Patient Education How to access health informa tion online - Detail Indication:Nonsmoker Start:14-Feb-2019 Instruction Type:Patient Education Patient Instructions Indication:Nonsmoker Start:14-Feb-2019 Instruction Type:Provider Instructions for Treatment How to access health informa tion online Indication:Nonsmoker Start:24-Jan-2019 Instruction Type:Patient Education How to access health informa tion online - Detail Indication:Nonsmoker Start:24-Jan-2019 Instruction Type:Patient Education Patient Instructions Indication:Nonsmoker Start:24-Jan-2019 Instruction Type:Provider Instructions for Treatment How to access health informa tion online Indication:Nonsmoker Start:10-Jan-2019 Instruction Type:Patient Education How to access health informa tion online - Detail Indication:Nonsmoker Start:10-Jan-2019 Instruction Type:Patient Education Patient Instructions Indication:Nonsmoker Start:10-Jan-2019 Instruction Type:Provider Instructions for Treatment How to access health informa tion online Indication:Nonsmoker Start:04-Sep-2018 Instruction Type:Patient Education How to access health informa tion online - Detail Indication:Nonsmoker Start:04-Sep-2018 Instruction Type:Patient Education Patient Instructions Indication:Nonsmoker Start:04-Sep-2018 Instruction Type:Provider Instructions for Treatment How to access health informa tion online Indication:Nonsmoker Start:16-Aug-2018 Instruction Type:Patient Education How to access health informa tion online - Detail Indication:Nonsmoker Start:16-Aug-2018 Instruction Type:Patient Education Patient Instructions Indication:BMI 25.0-25.9,adult Start:16-Aug-2018 Instruction Type:Provider Instructions for Treatment How to access health informa tion online Indication:Nonsmoker Start:24-Feb-2018 Instruction Type:Patient Education How to access health informa tion online - Detail Indication:Nonsmoker Start:24-Feb-2018 Instruction Type:Patient Education Patient Instructions Indication:Nonsmoker Start:24-Feb-2018 Instruction Type:Provider Instructions for Treatment How to access health informa tion online Indication:Nonsmoker Start:17-Feb-2018 Instruction Type:Patient Education How to access health informa tion online - Detail Indication:Nonsmoker Start:17-Feb-2018 Instruction Type:Patient Education Patient Instructions Indication:Nonsmoker Start:17-Feb-2018 Instruction Type:Provider Instructions for Treatment How to access health informa tion online Indication:Impaired fasting glucose Start:30-Nov-2017 Instruction Type:Patient Education How to access health informa tion online - Detail Indication:Impaired fasting glucose Start:30-Nov-2017 Instruction Type:Patient Education Patient Instructions Indication:Impaired fasting glucose Start:30-Nov-2017 Instruction Type:Provider Instructions for Treatment DISCONTINUED - LIPID PANEL ( [id number]) Indication:Hypertension, benign Start:30-Aug-2017 Instruction Type:Patient Education How to access health informa tion online Indication:Impaired fasting glucose Start:30-Aug-2017 Instruction Type:Patient Education How to access health informa tion online - Detail Indication:Impaired fasting glucose Start:30-Aug-2017 Instruction Type:Patient Education Patient Instructions Indication:Impaired fasting glucose Start:30-Aug-2017 Instruction Type:Provider Instructions for Treatment How to access health informa tion online Indication:Olecranon bursitis Start:10-Sep-2016 Instruction Type:Patient Education How to access health informa tion online - Detail Indication:Olecranon bursitis Start:10-Sep-2016 Instruction Type:Patient Education Patient Instructions Indication:Olecranon bursitis Start:10-Sep-2016 Instruction Type:Provider Instructions for Treatment Patient Instructions Indication:Screening PSA (prostate specific antigen) Start:24-Aug-2016 Instruction Type:Provider Instructions for Treatment How to access health informa tion online Indication:Impaired fasting glucose Start:24-Aug-2016 Instruction Type:Patient Education How to access health informa tion online - Detail Indication:Impaired fasting glucose Start:24-Aug-2016 Instruction Type:Patient Education Patient Instructions Indication:Impaired fasting glucose Start:24-Aug-2016 Instruction Type:Provider Instructions for Treatment Patient Instructions Indication:Cellulitis of elbow Start:07-May-2016 Instruction Type:Provider Instructions for Treatment How to access health informa tion online Indication:Cellulitis of elbow Start:07-May-2016 Instruction Type:Patient Education How to access health informa tion online - Detail Indication:Cellulitis of elbow Start:07-May-2016 Instruction Type:Patient Education Patient Instructions Indication:Abnormal blood chemistry Start:12-Sep-2015 Instruction Type:Provider Instructions for Treatment How to access health informa tion online Indication:Impaired fasting glucose Start:05-Sep-2015 Instruction Type:Patient Education How to access health informa tion online - Detail Indication:Impaired fasting glucose Start:05-Sep-2015 Instruction Type:Patient Education Patient Instructions Indication:Impaired fasting glucose Start:05-Sep-2015 Instruction Type:Provider Instructions for Treatment How to access health informa tion online Indication:Gout Start:26-Aug-2015 Instruction Type:Patient Education How to access health informa tion online - Detail Indication:Gout Start:26-Aug-2015 Instruction Type:Patient Education Patient Instructions Indication:Gout Start:26-Aug-2015 Instruction Type:Provider Instructions for Treatment How to access health informa tion online Indication:Anxiety Start:20-Feb-2015 Instruction Type:Patient Education How to access health informa tion online - Detail Indication:Anxiety Start:20-Feb-2015 Instruction Type:Patient Education Patient Instructions Indication:Anxiety Start:20-Feb-2015 Instruction Type:Provider Instructions for Treatment Patient Instructions Indication:Gout attack Start:06-Feb-2013 Instruction Type:Provider Instructions for Treatment Patient Instructions Indication:Gout, unspecified Start:02-Oct-2012 Instruction Type:Provider Instructions for Treatment Patient Instructions Indication:Gout, unspecified Start:11-Apr-2012 Instruction Type:Provider Instructions for Treatment Name Dates Details How to access health informa tion online Indication:Nonsmoker Start:14-Feb-2019 Instruction Type:Patient Education How to access health informa tion online - Detail Indication:Nonsmoker Start:14-Feb-2019 Instruction Type:Patient Education Patient Instructions Indication:Nonsmoker Start:14-Feb-2019 Instruction Type:Provider Instructions for Treatment How to access health informa tion online Indication:Nonsmoker Start:24-Jan-2019 Instruction Type:Patient Education How to access health informa tion online - Detail Indication:Nonsmoker Start:24-Jan-2019 Instruction Type:Patient Education Patient Instructions Indication:Nonsmoker Start:24-Jan-2019 Instruction Type:Provider Instructions for Treatment How to access health informa tion online Indication:Nonsmoker Start:10-Jan-2019 Instruction Type:Patient Education How to access health informa tion online - Detail Indication:Nonsmoker Start:10-Jan-2019 Instruction Type:Patient Education Patient Instructions Indication:Nonsmoker Start:10-Jan-2019 Instruction Type:Provider Instructions for Treatment How to access health informa tion online Indication:Nonsmoker Start:04-Sep-2018 Instruction Type:Patient Education How to access health informa tion online - Detail Indication:Nonsmoker Start:04-Sep-2018 Instruction Type:Patient Education Patient Instructions Indication:Nonsmoker Start:04-Sep-2018 Instruction Type:Provider Instructions for Treatment How to access health informa tion online Indication:Nonsmoker Start:16-Aug-2018 Instruction Type:Patient Education How to access health informa tion online - Detail Indication:Nonsmoker Start:16-Aug-2018 Instruction Type:Patient Education Patient Instructions Indication:BMI 25.0-25.9,adult Start:16-Aug-2018 Instruction Type:Provider Instructions for Treatment How to access health informa tion online Indication:Nonsmoker Start:24-Feb-2018 Instruction Type:Patient Education How to access health informa tion online - Detail Indication:Nonsmoker Start:24-Feb-2018 Instruction Type:Patient Education Patient Instructions Indication:Nonsmoker Start:24-Feb-2018 Instruction Type:Provider Instructions for Treatment How to access health informa tion online Indication:Nonsmoker Start:17-Feb-2018 Instruction Type:Patient Education How to access health informa tion online - Detail Indication:Nonsmoker Start:17-Feb-2018 Instruction Type:Patient Education Patient Instructions Indication:Nonsmoker Start:17-Feb-2018 Instruction Type:Provider Instructions for Treatment How to access health informa tion online Indication:Impaired fasting glucose Start:30-Nov-2017 Instruction Type:Patient Education How to access health informa tion online - Detail Indication:Impaired fasting glucose Start:30-Nov-2017 Instruction Type:Patient Education Patient Instructions Indication:Impaired fasting glucose Start:30-Nov-2017 Instruction Type:Provider Instructions for Treatment DISCONTINUED - LIPID PANEL ( [id number]) Indication:Hypertension, benign Start:30-Aug-2017 Instruction Type:Patient Education How to access health informa tion online Indication:Impaired fasting glucose Start:30-Aug-2017 Instruction Type:Patient Education How to access health informa tion online - Detail Indication:Impaired fasting glucose Start:30-Aug-2017 Instruction Type:Patient Education Patient Instructions Indication:Impaired fasting glucose Start:30-Aug-2017 Instruction Type:Provider Instructions for Treatment How to access health informa tion online Indication:Olecranon bursitis Start:10-Sep-2016 Instruction Type:Patient Education How to access health informa tion online - Detail Indication:Olecranon bursitis Start:10-Sep-2016 Instruction Type:Patient Education Patient Instructions Indication:Olecranon bursitis Start:10-Sep-2016 Instruction Type:Provider Instructions for Treatment Patient Instructions Indication:Screening PSA (prostate specific antigen) Start:24-Aug-2016 Instruction Type:Provider Instructions for Treatment How to access health informa tion online Indication:Impaired fasting glucose Start:24-Aug-2016 Instruction Type:Patient Education How to access health informa tion online - Detail Indication:Impaired fasting glucose Start:24-Aug-2016 Instruction Type:Patient Education Patient Instructions Indication:Impaired fasting glucose Start:24-Aug-2016 Instruction Type:Provider Instructions for Treatment Patient Instructions Indication:Cellulitis of elbow Start:07-May-2016 Instruction Type:Provider Instructions for Treatment How to access health informa tion online Indication:Cellulitis of elbow Start:07-May-2016 Instruction Type:Patient Education How to access health informa tion online - Detail Indication:Cellulitis of elbow Start:07-May-2016 Instruction Type:Patient Education Patient Instructions Indication:Abnormal blood chemistry Start:12-Sep-2015 Instruction Type:Provider Instructions for Treatment How to access health informa tion online Indication:Impaired fasting glucose Start:05-Sep-2015 Instruction Type:Patient Education How to access health informa tion online - Detail Indication:Impaired fasting glucose Start:05-Sep-2015 Instruction Type:Patient Education Patient Instructions Indication:Impaired fasting glucose Start:05-Sep-2015 Instruction Type:Provider Instructions for Treatment How to access health informa tion online Indication:Gout Start:26-Aug-2015 Instruction Type:Patient Education How to access health informa tion online - Detail Indication:Gout Start:26-Aug-2015 Instruction Type:Patient Education Patient Instructions Indication:Gout Start:26-Aug-2015 Instruction Type:Provider Instructions for Treatment How to access health informa tion online Indication:Anxiety Start:20-Feb-2015 Instruction Type:Patient Education How to access health informa tion online - Detail Indication:Anxiety Start:20-Feb-2015 Instruction Type:Patient Education Patient Instructions Indication:Anxiety Start:20-Feb-2015 Instruction Type:Provider Instructions for Treatment Patient Instructions Indication:Gout attack Start:06-Feb-2013 Instruction Type:Provider Instructions for Treatment Patient Instructions Indication:Gout, unspecified Start:02-Oct-2012 Instruction Type:Provider Instructions for Treatment Patient Instructions Indication:Gout, unspecified Start:11-Apr-2012 Instruction Type:Provider Instructions for Treatment Chief Complaint and Reason for Visit Chief Complaint E-ORDER Chief Complaint KNEE Chief Complaint KNEE HEART BEATING FAST Chief Complaint KNEE HEART BEATING FAST 1 Y FU wound wound Reason for Visit Essential (primary) hypertension HLD (hyperlipidemia) H/O coronary artery bypass surgery Chief Complaint KNEE HEART BEATING FAST 1 Y FU wound wound wound Reason for Visit Essential (primary) hypertension HLD (hyperlipidemia) H/O coronary artery bypass surgery Chief Complaint Admit Date [facility] August 08, 2024 8: 49am Chief Complaint Admit Date [facility] August 08, 2024 8: 49am 6 M FU October 12, 2024 9:40a m Reason for Visit Admit Date Chest discomfort October 12, 2024 9:40a m Atherosclerosis of coronary artery of [place] heart without angina pectoris October 12, 2024 9:40am Essential (primary) hypertension September 9:40am HLD (hyperlipidemia) October 12, 2024 9:40 am H/O coronary artery bypass surgery September 212024 9:40am Reason for Referral Specialty Diagnoses / Procedures Referred By Contac t Referred To Contact Diagnoses Hematoma Procedures CONSULT TO WOUND CENTER (AG) Ivett Alfredo, LOUIE.[employer] SCI[employer]IST [facility] [address] [place] [address] Referral ID Status Reason Start Date Expiration Date Visits Requested Visits Authorized [id number] Ref Not Required PCP Requested Referral 12/21/2022 03/21/2023 1 1 Additional Source Comments (unrecognized sect ion and content) No Status Records FoundNo Status Records FoundNo Status Records FoundNo Status Records FoundNo Status Records FoundNo Status Records Found INFORMATION SOURCE (unrecogn ized section and content) DATE CREATED AUTHOR 11/15/2017 [facility] DATE CREATED AUTHOR AUTHOR'S ORGANIZ ATION 09/04/2018 [facility] DATE CREATED AUTHOR AUTHOR'S ORGANIZ ATION 12/25/2022 [facility] DATE CREATED AUTHOR AUTHOR'S ORGANIZ ATION 01/21/2024 [facility] DATE CREATED AUTHOR AUTHOR'S ORGANIZ ATION 10/19/2024 [facility] DATE CREATED AUTHOR AUTHOR'S ORGANIZ ATION [facility] Care Team (unrecognized sect ion and content) Care Team Personnel Name: JHONATAN MERINO DO Position: P4 Physician - Primary Care Med Service: Active Provider Member Role: Primary Care Physician Address: Address: [address] [place] [id number] Care Team Related Persons Name: KARENA JEAN Address: Home [id number] [place] [phone] [place] Care Team Personnel Name: JHONATAN MERINO DO Position: P4 Physician - Primary Care Med Service: Active Provider Member Role: Primary Care Physician Address: Address: [address] [place] [address]- Care Team Related Persons Name: JEAN THURSTON Address: Home [address] [place], [place] [id number] [place] Care Team Personnel Name: JHONATAN MERINO DO Position: P4 Physician - Primary Care Med Service: Active Provider Member Role: Primary Care Physician Address: Address: [address] [place] [address]- Care Team Related Persons Name: JEAN THURSTON Address: Home [address] [place], [place] [id number] [place] Care Team Personnel Name: JHONATAN MERINO DO Position: P4 Physician - Primary Care Member Role: Primary Care Physician Address: Address: [address] [place] [id number] [place] [address] Care Team Related Persons Name: JEAN THURSTON Address: [place] [id number] [place] [phone] Goals (unrecognized section and content) Goals may be documented in a n alternate section Patient Care team informatio n (unrecognized section and content) Team Status: Active Member Role Status Dates Cathy Dallas HOT WALKER, HOT WALKER-C Family Provider Active Dr. Jhonatan Merino , DO Primary Care Provider Active Team Status: Inactive Member Role Status Dates Dr. Jhonatan Merino , DO Primary Care Provider Active Dr. Kathryn Gloria , DO Emergency Provider Active Team Status: Inactive Member Role Status Dates Dr. Jhonatan Merino , DO Primary Care Provider Active Dr. Bandar Brandon , DO Emergency Provider Active Team Status: Inactive Member Role Status Dates Dr. Jhonatan Merino , DO Primary Care Provider, Referrin g Provider Active Jessica Leon HOT WALKER, HOT WALKER-C Attending Provider Active Team Status: Active Member Role Status Dates Dr. Jhonatan Merino DO Primary Care Provider Active ERVIN Jean-Baptiste Attending Provider, Other Prov ider Active Ivett Alfredo HOT WALKER, HOT WALKER-C Referring Provider Active Team Status: Inactive Member Role Status Dates Dr. Jhonatan Merino DO Primary Care Provider Active Dr. Bandar Brandon , DO Attending Provider, Emergency Pr ovider Active Team Status: Active Member Role Status Dates Dr. Jhonatan Merino DO Primary Care Provider Active ERVIN Jean-Baptiste Attending Provider Active Ivett Alfredo HOT WALKER, HOT WALKER-C Referring Provider Active Team Status: Inactive Member Role Status Dates Dr. Jhonatan Merino DO Primary Care Provider Active Dr. Kathryn Gloria DO Attending Provider, Emergency Jas bowles Active Team Status: Inactive Member Role Status Dates Dr. Jhonatan Merino DO Primary Care Provider, Other Pr ovider Active Dr. Bandar Brandon DO Attending Provider, Referring Pr ovider Active Jessica Leon HOT WALKER, HOT WALKER-C Other Provider Active Team Status: Inactive Member Role Status Dates Dr. Jhonatan Merino DO Primary Care Provider Active ERVIN Jean-Baptiste Attending Provider Active Ivett Alfredo HOT WALKER, HOT WALKER-C Referring Provider Active Team Status: Inactive Member Role Status Dates Dr. Jhonatan Merino DO Primary Care Provider Active Dr. Louis Lock MD Attending Provider, Referr ing Provider Active Team Status: Inactive Member Role Status Dates Dr. Jhonatan Merino DO Primary Care Provider Active Start: July 12, 2024 End: July 12, 2024 Carissa Beardsley Attending Provider Active Start : July 12, 2024 End: July 12, 2024 Carissa Beardsley Referring Provider Active Start : July 12, 2024 End: July 12, 2024 Team Status: Inactive Member Role Status Dates Dr. Jhonatan Merino DO Primary Care Provider Active Start: August 08, 2024 End: August 08, 2024 Dr. Rachael Seymour MD Attending Provider Active Start: August 08, 2024 End: August 08, 2024 Dr. Rachael Seymour MD Referring Provider Active Start: August 08, 2024 End: August 08, 2024 Team Status: Active Member Role Status Dates Dr. Jhonatan Merino DO Primary Care Provider Active Team Status: Inactive Member Role Status Dates Dr. Jhonatan Merino DO Primary Care Provider Active Start: October 12, 2024 End: October 12, 2024 Dr. Jhonatan Merino DO Referring Provider Active Start: October 12, 2024 End: October 12, 2024 ERVIN Sosa Attending Provider Active St art: October 12, 2024 End: October 12, 2024 Team Status: Inactive Member Role Status Dates Dr. Jhonatan Merino DO Primary Care Provider Active Start: October 12, 2024 End: October 12, 2024 ERVIN Sosa Attending Provider Active St art: October 12, 2024 End: October 12, 2024 ERVIN Sosa Referring Provider Active St art: October 12, 2024 End: October 12, 2024 Source Comments (unrecognize d section and content) In the event this informatio n is protected by the Federal Confidentiality of Alcohol and Drug Abuse Patient Records regulations: The Federal rules restrict any use of the information to criminally investigate or prosecute any alcohol or drug abuse patient.[facility] FoundationIn the event this information is protected by the Federal Confidentiality of Alcohol and Drug Abuse Patient Records regulations: The Federal rules restrict any use of the information to criminally investigate or prosecute any alcohol or drug abuse patient.[facility] Reason for Visit (unrecogniz ed section and content) Reason Comments Referral Information Reason Comments New Patient Follow Up ED follow-up - left thigh hematoma FOR RECORDS PERTAINING TO PATIENTS WHO ARE OR HAVE BEEN ENROLLED IN A CHEMICAL DEPENDENCY/SUBSTANCEABUSE PROGRAM, SOME INFORMATION MAY BE OMITTED. This clinical summary was aggregated from multiple sources. Caution should be exercised in using it in the provision of clinical care. This summary normalizes information from multiple sources, and as a consequence, information in this document may materially change the coding, format and clinical context of patient data. In addition, data may be omitted in some cases. CLINICAL DECISIONS SHOULD BE BASED ON THE PRIMARY CLINICAL RECORDS. [employer] [facility]. provides no warranty or guarantee of the accuracy or completeness of information in this document.
[2024-11-09 10:12] LABS: Absolute Neutrophil Count 5.8 X10^3/uL (2.0-7.7); Basophil# 0.07 X10^3/uL; Basophil% 0.8 % (0-1); Eosinophil# 0.17 X10^3/uL; Hematocrit 42.4 % (40-54); Hemoglobin 14.4 g/dL (13.0-16.5); Lymphocyte % 18.9 % (19-41); Mean Corpuscular Hgb 31.2 pg (27.0-32.0); Mean Corpuscular Volume 91.8 fL (80-94); Mean Platelet Vol. 9.4 fl (6.2-12.0); Monocyte# 0.78 X10^3/uL; Monocyte% 9.2 % (0-10); NRBC Flagged by Analyzer 0 % (0-5); Neutrophil % 68.7 % (47-70); Platelet Count 240 K/mm3 (150-450); RBC Distribution Width CV 12.6 % (11.6-14.6); RBC Distribution Width SD 41.9 fl (35.1-43.9); Red Blood Count 4.62 M/mm3 (4.6-6.2); White Blood Count 8.5 K/mm3 (4.4-11.0)
[2024-11-09 11:00] LABS: ALB/GLOB Ratio 1.6 RATIO (0.9-2.4); AST(SGOT) 19 U/L (<=37); Alanine Aminotransfer ALT/SGPT 14 U/L (<=46); Albumin, Serum 4.2 g/dL (3.4-4.8); Alkaline Phosphatase 82 U/L (40-129); Anion Gap 10 (5-15); BUN 15 mg/dL (4-19); BUN/Creat Ratio 16.8 RATIO (10-20); Calcium,Total 9.3 mg/dL (7.6-11.0); Carbon Dioxide 25.3 mmol/L (21.0-32.0); Chloride 105 mmol/L (98-108); Creatinine, Serum 0.89 mg/dL (0.70-1.20); EST Glomerular Filtration Rate 87 (>60); Globulin 2.6 g/dL (2.2-4.2); Glucose 102 mg/dL (70-99); Protein, Total 6.8 g/dL (5.9-8.4); Sodium Level 141 mmol/L (133-145); Total Bilirubin 1.28 mg/dL (0.00-1.30)
--- NOTE | 2024-11-12 16:13 | STRESSREP ---
Stress Test Report Exercise myocardial perfusion stress test. 79-year-old man with a history of chest pain Stress protocol: Resting EKG demonstrates sinus bradycardia with a rate of 47 bpm resting blood pressure is 142/78 mmHg. The patient exercised according to the regular Jason protocol for a total duration of 6-1/2 minutes attaining a maximum heart rate of 120 bpm which was 85% of maximum predicted heart rate; the maximum workload was 8.5 metabolic equivalents. At rest there were no ST or T wave changes noted to suggest ischemia and at peak exercise upsloping ST changes only were noted which did not meet the criteria for ischemia. No clinical angina was noted the test was terminated due to the target heart rate being achieved/fatigue. The peak blood pressure was 172/74 mmHg. Rate-pressure product was 16,500. Myocardial perfusion protocol. 12.0 mCi of technetium 99m sestamibi was injected at rest. The patient exercised according to regular Jason protocol for total duration of 6-1/2-minute and at peak exercise 34.2 mCi of technetium 99m sestamibi was injected stress images were obtained stress and rest images were reconstructed in comparing the short axis vertical long and horizontal long axis. Perfusion SPECT analysis: Review of the stress images demonstrate normal uptake of tracer noted in all areas of the myocardium. The resting images similarly demonstrate normal uptake of tracer noted in all areas of the myocardium. No areas of reversibility are noted to suggest ischemia no previous infarct was noted. Conclusion: Normal exercise myocardial perfusion stress test at a moderate workload
== END | disposition home or self-care (01) ==
PROVIDERS: PCP Student in an Organized Health Care Education/Training Program; Referring Provider Internal Medicine Rheumatology; Visit Provider Student in an Organized Health Care Education/Training Program
DX: M06.4 Inflammatory polyarthropathy (principal); R76.8 Other specified abnormal immunological findings in serum; I25.10 Atherosclerotic heart disease of native coronary artery without angina pectoris; Z95.1 Presence of aortocoronary bypass graft; I10 Essential (primary) hypertension; E78.00 Pure hypercholesterolemia, unspecified; R07.89 Other chest pain
CPT/HCPCS: 36415; 78452; 80053; 85025; 93017; A9500; A4216

== ENCOUNTER → 2024-11-29 | Outpatient (CLI) | payer MEDICARE, OTHER, SELFPAY | END | disposition home or self-care (01) | LOC: PSN 11:52 | PROVIDERS: PCP Student in an Organized Health Care Education/Training Program; Referring Provider Student in an Organized Health Care Education/Training Program; Visit Provider Student in an Organized Health Care Education/Training Program | DX: R00.2 Palpitations (principal); I49.9 Cardiac arrhythmia, unspecified | CPT/HCPCS: 93225; 93226 ==

== ENCOUNTER → 2025-01-10 | Outpatient (CLI) | payer MEDICARE, OTHER, SELFPAY ==
[2025-01-10 11:35] LABS: PSA,Total- Diagnostic < 0.02 ng/mL (0.00-4.00)
== END | disposition home or self-care (01) ==
LOC: LAB 10:04
PROVIDERS: PCP Student in an Organized Health Care Education/Training Program; Referring Provider Urology; Visit Provider Urology
DX: C61 Malignant neoplasm of prostate (principal)
CPT/HCPCS: 36415; 84153